=== PATIENT | male | born 1970 | race African-American/Black ===

== ENCOUNTER 2016-09-03 10:59 | Emergency (ER) | payer MEDICARE, MEDICAID ==
[~2016-09-03] VITALS: Ht 190.5 cm; Wt 191.4 kg
[~2016-09-03 10:59] MED LIST: ALLP100T PO; AML5T PO; AMLO10TA2 PO; ASP325T NG; ASP325T PO; ASP81CT PO; ASPI-808 PO; ASPI-983 PO; ASPI-999 PO; ASPI325T32 PO; ATOR20TA49 PO; ATOR20TA66 PO; ATOR80TA75 PO; BACL20TA PO; BACLOFEN; CLON0.1T PO; CLOP75TA; CLOP75TA28 PO; COLC0.6T7 PO; CYCL10TA9 PO; CYCL5TAB PO; FAMO20TA5 PO; GABA600T2 PO; GENT15DR4 RIGHT EAR; HYDR-2889 PO; HYDR-34 PO; HYDR-3816 PO; HYDROCODONE; IBP800T PO; IBUP-2055 PO; INDO25CA PO; ISOS30TA3 PO; LISI-552 PO; LISI20TA PO; METH4TAB PO; METO-333 PO; Metoprolol; NAPR-243 PO; OMG1KC PO; OXYC-12 PO; PANT40TA3 PO; PNT40TEC PO; SILD100T PO; TICA90TA PO
--- NOTE | 2016-09-03 12:05 | ED General ---
General Chief Complaint: General Problems/Pain Stated Complaint: L SIDE NECK/SHOULDER PAIN Nursing Triage Note: PT AMBULATED TO ROOM 09. PT STATES THAT SOMETIME EVER SINCE August. HE HAS HAD SEVERE "STABBING" PAIN IN HIS LEFT SHOULDER ALL THE WAY DOWN TO HIS FINGERTIPS. SOMETIMES HIS FINGERTIPS GO NUMB. PT STATES HE DIDN'T DO ANY SEVERE OR DIFFERENT ACTIVITES THAT HE IS AWARE OF TO CAUSE THIS PAIN. Nursing Sepsis Screen: No Definite Risk Source of Information: Patient, EMS Notes Reviewed Exam Limitations: No Limitations History of Present Illness Time Seen by Provider: 12:00 Initial Comments The patient is a 46-year-old male who presents with complaints of pain in the neck and numbness and tingling in the left hand. He reports this began about August 16 without injury. He reports that he has lost range of motion in the neck. There is also pain along the medial border of the scapula. He believes that he is losing strength in the left arm. He reports that he has been disabled for several years because of numbness in his legs. He states that since the onset of these symptoms noted above, his legs seem to be less numb and more functional. He has been scheduled for open MRI on 09/15. His weight is greater than 400 pounds and would not allow use of the in-house MRI Severity: Moderate Associated Systoms: Weakness (left arm) Allergies and Home Medications Allergies Coded Allergies: No Known Drug Allergies (Verified , 11/02/07) Home Medications Aspirin 325 Mg Tablet, 325 MG PO DAILY, (Reported) Baclofen 20 Mg Tablet, 20 MG PO QID, (Reported) Gabapentin 600 Mg Tablet, 1,800 MG PO DAILY, (Reported) TAKES 3 (600 MG) TABLETS WITH EVENING MEAL Hydrocodone/Acetaminophen 1 Each Tablet, 1 TAB PO TID PRN for PAIN, (Reported) Ibuprofen 200 Mg Tablet, 400 MG PO BID PRN for PAIN, (Reported) Indomethacin 25 Mg Capsule, 50 MG PO TID PRN for GOUT PAIN, (Reported) TAKES 2 (25 MG) CAPSULES Sildenafil Citrate 100 Mg Tablet, 100 MG PO DAILY PRN for INTERCOURSE, (Reported ) Constitutional: see HPI EENTM: no symptoms reported Cardiovascular: no symptoms reported, Hx of Intervention Gastrointestinal: no symptoms reported Genitourinary: no symptoms reported Musculoskeletal: see HPI, neck pain Skin: no symptoms reported Psychiatric/Neurological: Numbness, Weakness Hematologic/Lymphatic: No Symptoms Reported Past Nhtllgp-[id number]-Mpgwbq Hx Patient Social History Alcohol Use: Denies Use Recreational Drug Use: No Smoking Status: Current Everyday Smoker Type Used: Cigarettes 2nd Hand Smoke Exposure: Yes Recent Foreign Travel: No Contact w/Someone Who Travel: No Recent Infectious Disease Expo: No Recent Hopitalizations: No Immunizations Up To Date Tetanus Booster (TDap): More than 5yrs PED Vaccines UTD: No Date of Pneumonia Vaccine: Mar 07, 2015 Date of Influenza Vaccine: Mar 07, 2015 Seasonal Allergies Seasonal Allergies: Yes Surgeries HX Surgeries: Yes (CARDIAC STENTS X 3; RUPTURED APPENDIX) Surgeries: Appendectomy, Cardiac, Coronary Stent Respiratory Hx Respiratory Disorders: No Cardiovascular Hx Cardiac Disorders: Yes (STENT IN and 2 stents at [place] 03/07/15) Cardiac Disorders: Coronary Artery Disease, Heart Attack, Hypertension Neurological Hx Neurological Disorders: Yes (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/NUMBNESS IN LEGS) Reproductive System Hx Reproductive Disorders: No Sexually Transmitted Disease: No HIV/AIDS: No Genitourinary Hx Genitourinary Disorders: No Gastrointestinal Hx Gastrointestinal Disorders: Yes Gastrointestinal Disorders: Gastroesophageal Reflux, Chronic Constipation Musculoskeletal Hx Musculoskeletal Disorders: Yes (cervical spinal stenosis-CHRONIC NECK PAIN ) Musculoskeletal Disorders: Degenerate Disk Disease, Chronic Back Pain, Gout Endocrine Hx Endocrine Disorders: Yes (MORBID OBESITY) HEENT HX ENT Disorders: No Loss of Vision: Denies Hearing Impairment: Denies Cancer Hx Cancer: No Psychosocial Hx Psychiatric Problems: No Integumentary HX Skin/Integumentary Disorder: No Blood Transfusions Hx Blood Disorders: No Adverse Reaction to a Blood Tr: No Family Medical History Family Medial History: Cardiovascular disease 19 FATHER (BYPASS) Hypercholesterolemia 19 FATHER Hypertension 19 FATHER Physical Exam Vital Signs Vital Sign - Last 12Hours 09/03/16 11:09 Temp 98.5 Pulse 81 Resp 20 B/P (MAP) 196/91 Pulse Ox 98 O2 Delivery Room Air Capillary Refill : Less Than 3 Seconds General Appearance: Mild Distress Eyes: Bilateral Eye Normal Inspection HEENT: Normal ENT Inspection Neck: Limited Range of Motion Respiratory: Chest Non Tender, Lungs Clear, Normal Breath Sounds, No Accessory Muscle Use, No Respiratory Distress Cardiovascular: Regular Rate, Rhythm, No Edema, No Gallop, No JVD, No Murmur, Normal Peripheral Pulses Gastrointestinal: Normal Bowel Sounds, No Organomegaly, No Pulsatile Mass, Non Tender, Soft Back: Normal Inspection, No CVA Tenderness, No Vertebral Tenderness Extremity: Normal Capillary Refill, Normal Inspection, Normal Range of Motion, Non Tender, No Calf Tenderness, No Pedal Edema Neurologic/Psychiatric: Alert, Oriented x3, Normal Mood/Affect, Other Skin: Normal Color, Warm/Dry Lymphatic: No Adenopathy Progress/Results/Core Measures Results/Orders Vital Signs/I&O Vital Sign - Last 12Hours 09/03/16 11:09 Temp 98.5 Pulse 81 Resp 20 B/P (MAP) 196/91 Pulse Ox 98 O2 Delivery Room Air Blood Pressure Mean: 126 Departure Impression Impression: Primary Impression: motor dysfunction left arm suggestive of cervical disc Disposition: HOME, SELF-CARE Condition: Stable/Unchanged Departure-Patient Inst. Decision time for Depature: 12:07 Referrals: ROB RAMIREZ MD (PCP/Family) Primary Care Physician Add. Discharge Instructions: All discharge instructions reviewed with patient and/or family. Voiced understanding. Continue present modalities. Keep appointment for open MRI on 09/15. Consult your provider for future needs. KEYON MORIN MD Sep 03, 2016 12:05
[2016-09-03 12:35] VITALS: BP 177/118
== END 2016-09-03 12:35 | disposition home or self-care (01) ==
LOC: EDUNIT# 10:59 → ER 11:02
DX: R29.2 Abnormal reflex (principal); I25.10 Atherosclerotic heart disease of native coronary artery without angina pectoris; I25.2 Old myocardial infarction; I10 Essential (primary) hypertension; K21.9 Gastro-esophageal reflux disease without esophagitis; M48.02 Spinal stenosis, cervical region; M19.90 Unspecified osteoarthritis, unspecified site; M10.9 Gout, unspecified; E66.01 Morbid (severe) obesity due to excess calories; F17.210 Nicotine dependence, cigarettes, uncomplicated; Z79.82 Long term (current) use of aspirin; Z82.49 Family history of ischemic heart disease and other diseases of the circulatory system; Z95.5 Presence of coronary angioplasty implant and graft; Z90.49 Acquired absence of other specified parts of digestive tract
CPT/HCPCS: 99281

== ENCOUNTER 2017-08-20 23:50 | Emergency (ER) | payer MEDICARE ==
[~2017-08-20] VITALS: Ht 190.5 cm; Wt 195.0 kg
[~2017-08-20 23:50] MED LIST changes: -HYDR-3816 PO; -INDO25CA PO; +INDO25CA15 PO
[2017-08-21 00:38] LABS: BASOPHILS % (AUTO) 0 % (0-10); EOSINOPHILS # (AUTO) 0.1 10^3/uL (0.0-0.3); EOSINOPHILS % (AUTO) 1 % (0-10); HEMATOCRIT 46 % (40-54); LYMPHOCYTES # (AUTO) 2.9 X 10^3 (1.0-4.0); LYMPHOCYTES % (AUTO) 30 % (12-44); MEAN CORPUSCULAR HEMOGLOBIN 32 PG (25-34); MEAN CORPUSCULAR HGB CONC 35 G/DL (32-36); MEAN CORPUSCULAR VOLUME 92 FL (80-99); MEAN PLATELET VOLUME 10.2 FL (7.4-10.4); MONOCYTES # (AUTO) 0.8 X 10^3 (0.0-1.0); MONOCYTES % (AUTO) 8 % (0-12); NEUTROPHILS # (AUTO) 5.9 X 10^3 (1.8-7.8); NEUTROPHILS % (AUTO) 61 % (42-75); PLATELET COUNT 300 10^3/uL (130-400); RED BLOOD COUNT 5.06 10^6/uL (4.35-5.85); WHITE BLOOD COUNT 9.7 10^3/uL (4.3-11.0)
[2017-08-21 00:51] LABS: ALANINE AMINOTRANSFERASE 44 U/L (0-55); ALBUMIN 4.2 GM/DL (3.2-4.5); ALKALINE PHOSPHATASE 97 U/L (40-136); BILIRUBIN,TOTAL 0.5 MG/DL (0.1-1.0); BUN/CREATININE RATIO 8; CALCIUM 9.4 MG/DL (8.5-10.1); CARBON DIOXIDE 23 MMOL/L (21-32); CHLORIDE 110 MMOL/L (98-107); CREATININE SERUM 1.04 MG/DL (0.60-1.30); GFR ESTIMATED > 60; GLUCOSE 95 MG/DL (70-105); MAGNESIUM 2.1 MG/DL (1.8-2.4); POTASSIUM 3.6 MMOL/L (3.6-5.0); SODIUM 143 MMOL/L (135-145); TOTAL PROTEIN 7.6 GM/DL (6.4-8.2)
--- NOTE | 2017-08-21 00:56 | ED General ---
General Chief Complaint: General Problems/Pain Stated Complaint: NUMB LEGS FALL AT HOME Source of Information: Patient Exam Limitations: No Limitations History of Present Illness Date Seen by Provider: Aug 21, 2017 Time Seen by Provider: 00:25 Initial Comments Here with report of leg weakness and has had some falls related to that recently. Also noted that he had a blister on his knee that popped and now he has a wound. He has been treating that with animal spray to cover wound. He is also been using antibiotic ointment. States that he can't lift his knee but if he sticks his finger in the hole in his knee he is able to lift his leg. Has fci disability related to cervical disease and weakness to the legs from that. States he had been better but now things seemed to be worsening. Also has hypertension and heart disease. Reports that he is taking his meds as directed. Records show he has not filled prescription for his blood pressure medicines but states that he actually had quite a few left over from previous when he wasn't taking his meds as directed and that has been his med source that he's relied on recently for metoprolol and lisinopril. Does have prescriptions for [place] that he takes as directed as well as gabapentin and hydrocodone. Denies fevers. Does not know exactly when the blister started but thinks it's from rubbing on the dashboard when his car. The blister popped about a week ago and then the hole formed. Timing/Duration: 1 Week, Getting Worse Severity: Moderate Modifying Factors: worse with Movement Associated Systoms: No Chest Pain, No Cough, No Diaphoresis, No Fever/Chills, No Nausea/Vomiting; Shortness of Air, Weakness Allergies and Home Medications Allergies Coded Allergies: No Known Drug Allergies (Verified , 11/02/07) Home Medications Aspirin 325 Mg Tablet, 325 MG PO DAILY, (Reported) Baclofen 20 Mg Tablet, 20 MG PO QID, (Reported) Gabapentin 600 Mg Tablet, 1,800 MG PO DAILY, (Reported) TAKES 3 (600 MG) TABLETS WITH EVENING MEAL Hydrocodone Bit/Acetaminophen 1 Each Tablet, 1 TAB PO TID PRN for PAIN, ( Reported) Ibuprofen 200 Mg Tablet, 400 MG PO BID PRN for PAIN, (Reported) Indomethacin 25 Mg Capsule, 50 MG PO TID PRN for GOUT PAIN, (Reported) TAKES 2 (25 MG) CAPSULES Sildenafil Citrate 100 Mg Tablet, 100 MG PO DAILY PRN for INTERCOURSE, (Reported ) Patient Home Medication List Home Medication List Reviewed: Yes Review of Systems Constitutional: see HPI; No chills, No fever; weakness EENTM: nose congestion; No throat pain Respiratory: No cough; short of breath Cardiovascular: edema (bilateral legs) Gastrointestinal: No abdominal pain, No nausea, No vomiting Genitourinary: no symptoms reported Musculoskeletal: joint pain, joint swelling, muscle pain, muscle weakness Skin: change in color, lesions Psychiatric/Neurological: Numbness, Paresthesia, Pre-Existing Deficit, Weakness All Other Systems Reviewed Negative Unless Noted: Yes Past Szbmxjo-Wdosya-Vvsvkt Hx Past Med/Social Hx: Reviewed Nursing Past Med/Soc Hx Patient Social History Alcohol Use: Occasionally Uses Alcohol Beverage of Choice: Beer Recreational Drug Use: No Smoking Status: Current Everyday Smoker Type Used: Cigarettes 2nd Hand Smoke Exposure: Yes Recent Foreign Travel: No Contact w/Someone Who Travel: No Recent Hopitalizations: No Immunizations Up To Date Tetanus Booster (TDap): More than 5yrs PED Vaccines UTD: No Date of Pneumonia Vaccine: Mar 07, 2015 Date of Influenza Vaccine: Mar 07, 2015 Seasonal Allergies Seasonal Allergies: Yes Past Medical History Surgeries: Yes (CARDIAC STENTS X 3; RUPTURED APPENDIX) Appendectomy, Cardiac, Coronary Stent Respiratory: No Currently Using CPAP: No Currently Using BIPAP: No Cardiac: Yes (STENT IN and 2 stents at [place] 03/07/15) Coronary Artery Disease, Heart Attack, Hypertension Neurological: Yes (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/NUMBNESS IN LEGS) Reproductive Disorders: No Sexually Transmitted Disease: No HIV/AIDS: No Genitourinary: No Gastrointestinal: Yes Gastroesophageal Reflux, Chronic Constipation Musculoskeletal: Yes (cervical spinal stenosis-CHRONIC NECK PAIN ) Degenerate Disk Disease, Chronic Back Pain, Gout Endocrine: Yes (MORBID OBESITY) HEENT: No Loss of Vision: Denies Hearing Impairment: Denies Cancer: No Psychosocial: No Integumentary: No Blood Disorders: No Adverse Reaction/Blood Tranf: No Family Medical History Reviewed Nursing Family Hx Cardiovascular disease 19 FATHER (BYPASS) Hypercholesterolemia 19 FATHER Hypertension 19 FATHER Physical Exam Vital Signs Vital Signs - First Documented 08/21/17 01:02 Temp 97.9 Pulse 87 Resp 14 B/P (MAP) 146/105 (119) Pulse Ox 98 O2 Delivery Room Air Capillary Refill : Height, Weight, BMI Height: 6', 3.00" Weight: 422lbs 0.0oz, [id number] Method:Stated ,52.5BMI General Appearance: No Apparent Distress, WD/WN HEENT: PERRL/EOMI, Pharynx Normal Neck: Non Tender, Supple Respiratory: Lungs Clear, Normal Breath Sounds Cardiovascular: Regular Rate, Rhythm, No Murmur Gastrointestinal: Non Tender, Soft Back: Normal Inspection, No CVA Tenderness, No Vertebral Tenderness Extremity: Inflammation (around the right knee), Swelling Neurologic/Psychiatric: Alert, Oriented x3, Motor Weakness (bilateral lower extremities that is chronic) Skin: Warm/Dry, Other (wound to right knee with 2 x 2 centimeters circular hole with 6 x 6 cm area of erythema and warmth. This is over the lower kneecap area centrally.) Focused Exam Lactate Level 08/21/17 01:12: Lactic Acid Level 0.83 Lactic Acid Level Laboratory Tests Test 08/21/17 01:12 Lactic Acid Level 0.83 MMOL/L (0.50-2.00) Progress/Results/Core Measures Suspected Sepsis SIRS Temperature: Pulse: Respiratory Rate: Laboratory Tests 08/21/17 00:15: White Blood Count 9.7 Blood Pressure / Mean: 08/21/17 01:12: Lactic Acid Level 0.83 Laboratory Tests 08/21/17 00:15: Creatinine 1.04, Platelet Count 300, Total Bilirubin 0.5 Results/Orders Lab Results Laboratory Tests Test 08/21/17 00:15 08/21/17 01:12 Range/Units White Blood Count 9.7 4.3-11.0 10^3/uL Red Blood Count 5.06 4.35-5.85 10^6/uL Hemoglobin 16.0 13.3-17.7 G/DL Hematocrit 46 40-54 % Mean Corpuscular Volume 92 80-99 FL Mean Corpuscular Hemoglobin 32 25-34 PG Mean Corpuscular Hemoglobin Concent 35 32-36 G/DL Red Cell Distribution Width 13.0 10.0-14.5 % Platelet Count 300 130-400 10^3/uL Mean Platelet Volume 10.2 7.4-10.4 FL Neutrophils (%) (Auto) 61 42-75 % Lymphocytes (%) (Auto) 30 12-44 % Monocytes (%) (Auto) 8 0-12 % Eosinophils (%) (Auto) 1 0-10 % Basophils (%) (Auto) 0 0-10 % Neutrophils # (Auto) 5.9 1.8-7.8 X 10^3 Lymphocytes # (Auto) 2.9 1.0-4.0 X 10^3 Monocytes # (Auto) 0.8 0.0-1.0 X 10^3 Eosinophils # (Auto) 0.1 0.0-0.3 10^3/uL Basophils # (Auto) 0.0 0.0-0.1 10^3/uL Sodium Level 143 135-145 MMOL/L Potassium Level 3.6 3.6-5.0 MMOL/L Chloride Level 110 H 98-107 MMOL/L Carbon Dioxide Level 23 21-32 MMOL/L Anion Gap 10 5-14 MMOL/L Blood Urea Nitrogen 8 7-18 MG/DL Creatinine 1.04 0.60-1.30 MG/DL Estimat Glomerular Filtration Rate > 60 BUN/Creatinine Ratio 8 Glucose Level 95 70-105 MG/DL Calcium Level 9.4 8.5-10.1 MG/DL Magnesium Level 2.1 1.8-2.4 MG/DL Total Bilirubin 0.5 0.1-1.0 MG/DL Aspartate Amino Transf (AST/SGOT) 25 5-34 U/L Alanine Aminotransferase (ALT/SGPT) 44 0-55 U/L Alkaline Phosphatase 97 40-136 U/L C-Reactive Protein High Sensitivity 0.31 0.00-0.50 MG/DL Total Protein 7.6 6.4-8.2 GM/DL Albumin 4.2 3.2-4.5 GM/DL Lactic Acid Level 0.83 0.50-2.00 MMOL/L My Orders Orders - YASMANY CAMPBELL MD Cbc With Automated Diff (08/21/17 00:24) Comprehensive Metabolic Panel (08/21/17 00:24) Hs C Reactive Protein (08/21/17 00:24) Magnesium (08/21/17 00:24) Chest 1 View, Ap/Pa Only (08/21/17 00:24) Knee, Right, 3 Views (08/21/17 00:24) Saline Lock/Iv-Start (08/21/17 00:32) Lactic Acid Analyzer (08/21/17 00:50) Blood Culture (08/21/17 00:50) Ceftriaxone Injection (Rocephin Injectio (08/21/17 02:23) Ns (Ivpb) (Sodium Chloride 0.9% Ivpb Bag (08/21/17 02:23) Wound Culture (08/21/17 02:23) Ceftriaxone Injection (Rocephin Injectio (08/21/17 02:30) Medications Given in ED Current Medications Medications Dose Ordered Sig/Iván Route Start Time Stop Time Status Last Admin Dose Admin Ceftriaxone Sodium 1000 mg/ Sodium Chloride 50 ml @ 100 mls/hr ONCE ONCE IV 08/21/17 02:30 08/21/17 02:59 DC 08/21/17 02:34 100 MLS/HR Vital Signs/I&O 08/21/17 01:02 Temp 97.9 Pulse 87 Resp 14 B/P (MAP) 146/105 (119) Pulse Ox 98 O2 Delivery Room Air Capillary Refill : Progress Note : Progress Note Seen and evaluated. IV, labs, chest x-ray and knee x-ray ordered. We have added blood cultures and lactic acid due to the findings of the wound. Monitor patient. 0207; labs are overall normal but wound has significant abnormal appearance and ulceration. There is concerns about healing. I discussed the case with Dr. Novak. We have considered admission. After cleaning wound and wiping off the cover up spray, the surrounding tissue actually looks much better as the spray apparently was colored. Patient definitely has ulcerative wound and will need to this wound care for that. We will initiate antibiotics and then have clinic set up wound care and follow-up program. I discussed this with Dr. Novak at 0228 and she agrees. I will send a copy of the chart to the clinic as well. Discharged home with return precautions. Patient verbalize understanding instructions and agreement with plan. Diagnostic Imaging Diagonstic Imaging: Xray Plain Films/CT/US/NM/MRI: chest Comments No acute findings Reviewed: Reviewed by Me Diagonstic Imaging: Xray Plain Films/CT/US/NM/MRI: knee Comments No acute bony abnormalities Reviewed: Reviewed by Me Departure Impression Primary Impression: Open wound of right knee Qualified Codes: S81.001A - Unspecified open wound, right knee, initial encounter Disposition: HOME, SELF-CARE Condition: Stable Departure-Patient Inst. Decision time for Depature: 02:57 Referrals: ROB RAMIREZ MD (PCP/Family) Primary Care Physician Patient Instructions: Wound Care (DC) Add. Discharge Instructions: All discharge instructions reviewed with patient and/or family. Voiced understanding. Call clinic today for appointment and follow-up. Take medications as directed. Return for worse pain, fever, vomiting, weakness, breathing problems or other concerns as needed. Stop using the cover up spray. You may continue antibiotics and dressing changes to the knee. Change the dressing daily and gently rinse wound before reapplying antibiotic ointment and a dressing. Scripts Clindamycin HCl (Clindamycin HCl) 300 Mg Capsule 300 MG PO Q6H, #28 CAP Prov: YASMANY CAMPBELL MD 08/21/17 Copy Copies To 1: ROB RAMIREZ MD, TIMOTHY D MD Aug 21, 2017 00:56
[2017-08-21] MEDS ORDERED: cefTRIAXone 1 GM (ROCEPHIN) VIAL ONE (02:23)
[2017-08-21] MEDS ORDERED: NS (IVPB) 50 ML ONE (02:23)
[2017-08-21] MEDS ORDERED: cefTRIAXone INJECTION 1,000 MG in NS (IVPB) 50 ML IV ONE (02:30)
[2017-08-21] MEDS ORDERED: CLIN300C11 PO (03:16)
[2017-08-21 03:30] VITALS: BP 135/76
--- NOTE | 2017-08-21 08:16 | Diagnostic Imaging Report ---
CLINICAL INDICATION: Patient with no known injury. Patient complains of numbness and weakness in legs. Patient does have an open sore on the right patella area that has been there for at least three weeks and would not heal. EXAM: X-ray of the right knee, three views. COMPARISON: None. FINDINGS: There is curvilinear radiodense area likely representing clothing or sheets outside of the patient's knee noted on lateral view. Otherwise, right knee shows no acute fracture or dislocation. There is mildly hypertrophic spurs involving the tricompartmental regions with the medial compartment affected the most. There is chronic appearing calcification seen laterally adjacent to the lateral aspect of distal femoral epicondylar region. This may be from remote traumatic changes, possibly involving the LCL region. Correlation for prior trauma is suggested. There is no significant knee effusion. There is no radiodense foreign object noted in the soft tissue. There is a soft tissue wound seen anterior to the patellar region with no other significant abnormality noted. IMPRESSION: 1: There is soft tissue/skin wound seen anterior to the patellar region. There is no radiodense foreign objects seen in the region. 2: Degenerative disease of the right knee. 3: Suspected remote post traumatic changes laterally adjacent to the distal femoral region, as described above. Dictated by: Dictated on workstation # [id number]
--- NOTE | 2017-08-21 08:56 | Diagnostic Imaging Report ---
CLINICAL INDICATION: Patient complains of numbness and weakness in the leg. The patient has an open sore on the right patella which has been there for 3 weeks and won't heal. EXAM: Chest x-ray, PA view only. COMPARISON: Chest x-ray dated 11/17/2015. FINDINGS: The lungs are clear. There is no pleural effusion or pneumothorax. The pulmonary vasculature and mediastinal structures are unremarkable. The cardiac silhouette is within normal limits. There are hypertrophic spurs involving the thoracic spine with dextroscoliosis of the lower thoracic spine. IMPRESSION: There is no radiographic evidence of an acute cardiopulmonary process. Dictated by: Dictated on workstation # [id number]
== END 2017-08-21 03:31 | disposition home or self-care (01) ==
LOC: EDUNIT# 23:50 → ER 23:53
DX: S81.001A Unspecified open wound, right knee, initial encounter (principal); I25.10 Atherosclerotic heart disease of native coronary artery without angina pectoris; I25.2 Old myocardial infarction; I10 Essential (primary) hypertension; K21.9 Gastro-esophageal reflux disease without esophagitis; E66.01 Morbid (severe) obesity due to excess calories; F17.210 Nicotine dependence, cigarettes, uncomplicated; Z79.82 Long term (current) use of aspirin; Z90.49 Acquired absence of other specified parts of digestive tract; Z95.5 Presence of coronary angioplasty implant and graft; Z68.43 Body mass index [BMI] 50.0-59.9, adult; Z91.14 Patient's other noncompliance with medication regimen; W18.39XA Other fall on same level, initial encounter
CPT/HCPCS: 36415; 71045; 73562; 80053; 83605; 83735; 85025; 86141; 87040; 87070; 87186; 87205; 96374

== ENCOUNTER 2018-01-15 15:16 | Emergency (ER) | payer MEDICARE ==
[~2018-01-15] VITALS: Ht 190.5 cm; Wt 183.7 kg
[~2018-01-15 15:16] MED LIST changes: -AMLO10TA2 PO; +AMLO10TA6 PO; +CLIN300C11 PO
[2018-01-15 16:21] LABS: BASOPHILS % (AUTO) 0 % (0-10); EOSINOPHILS # (AUTO) 0.1 10^3/uL (0.0-0.3); EOSINOPHILS % (AUTO) 1 % (0-10); HEMATOCRIT 46 % (40-54); HEMOGLOBIN 15.4 G/DL (13.3-17.7); LYMPHOCYTES # (AUTO) 2.2 X 10^3 (1.0-4.0); LYMPHOCYTES % (AUTO) 29 % (12-44); MEAN CORPUSCULAR HEMOGLOBIN 30 PG (25-34); MEAN CORPUSCULAR HGB CONC 33 G/DL (32-36); MEAN CORPUSCULAR VOLUME 92 FL (80-99); MONOCYTES # (AUTO) 0.7 X 10^3 (0.0-1.0); MONOCYTES % (AUTO) 10 % (0-12); NEUTROPHILS # (AUTO) 4.3 X 10^3 (1.8-7.8); NEUTROPHILS % (AUTO) 59 % (42-75); PLATELET COUNT 252 10^3/uL (130-400); RED BLOOD COUNT 5.06 10^6/uL (4.35-5.85); RED CELL DISTRIBUTION WIDTH 13.3 % (10.0-14.5); WHITE BLOOD COUNT 7.3 10^3/uL (4.3-11.0)
[2018-01-15 16:35] LABS: ALANINE AMINOTRANSFERASE 14 U/L (0-55); ALBUMIN 3.9 GM/DL (3.2-4.5); ALKALINE PHOSPHATASE 82 U/L (40-136); BILIRUBIN,TOTAL 0.3 MG/DL (0.1-1.0); BUN/CREATININE RATIO 13; CALCIUM 9.2 MG/DL (8.5-10.1); CARBON DIOXIDE 26 MMOL/L (21-32); CHLORIDE 107 MMOL/L (98-107); CREATININE SERUM 0.94 MG/DL (0.60-1.30); GFR ESTIMATED > 60; GLUCOSE 95 MG/DL (70-105); POTASSIUM 4.1 MMOL/L (3.6-5.0); SODIUM 142 MMOL/L (135-145); TOTAL PROTEIN 7.1 GM/DL (6.4-8.2)
--- NOTE | 2018-01-15 16:41 | ED Neurological Problem ---
General Chief Complaint: Neurological Problems Stated Complaint: WEAKNESS/FALL Nursing Triage Note: PT STATES HE HAS HAD NUMBNESS IN HIS LOWER EXTREMITIES SINCE 2006. PT USES TWO BALANCING CANES TO WALK UP UNTIL LAST MONDAY THE PT STATES HE FELL IN THE SHOWER AND HAS SINCE THEN HAS HAD DECREASED MOBILITY. STATES HE HAS HAD TO CRAWL AROUND SINCE THE FALL TO MOVE Nursing Sepsis Screen: No Definite Risk Source: patient Exam Limitations: no limitations History of Present Illness Date Seen by Provider: Jan 15, 2018 Time Seen by Provider: 16:34 Initial Comments This 47-year-old male presents with progressive numbness of his lower extremities for the last decade. The patient now has open wounds and ulcers to his right knee and hip. Patient is unable to weight-bear. Patient relates that he can relieve the numbness temporarily with posterior pressure on the low back. Allergies and Home Medications Allergies Coded Allergies: No Known Drug Allergies (Verified , 11/02/07) Home Medications Aspirin 325 Mg Tablet, 325 MG PO DAILY, (Reported) Baclofen 20 Mg Tablet, 20 MG PO QID, (Reported) Clindamycin HCl 300 Mg Capsule, 300 MG PO Q6H Prescribed by: YASMANY CAMPBELL on 08/21/17 0316 Gabapentin 600 Mg Tablet, 1,800 MG PO DAILY, (Reported) TAKES 3 (600 MG) TABLETS WITH EVENING MEAL Hydrocodone Bit/Acetaminophen 1 Each Tablet, 1 TAB PO TID PRN for PAIN, ( Reported) Ibuprofen 200 Mg Tablet, 400 MG PO BID PRN for PAIN, (Reported) Indomethacin 25 Mg Capsule, 50 MG PO TID PRN for GOUT PAIN, (Reported) TAKES 2 (25 MG) CAPSULES Sildenafil Citrate 100 Mg Tablet, 100 MG PO DAILY PRN for INTERCOURSE, (Reported ) Patient Home Medication List Home Medication List Reviewed: Yes Review of Systems Review of Systems Constitutional: No chills, No fever Eyes: Denies Blurred Vision Ears, Nose, Mouth, Throat: denies ear pain Respiratory: No cough, No short of breath Cardiovascular: No chest pain, No palpitations Gastrointestinal: No abdominal pain, No nausea, No vomiting Genitourinary: no symptoms reported Musculoskeletal: muscle weakness Skin: other (wounds to the right hip and knee) Psychiatric/Neurological: Numbness (to both lower extremities) Endocrine: No Symptoms Reported Hematologic/Lymphatic: No Symptoms Reported Past Ojziejb-[id number]-Qtsjnr Hx Past Med/Social Hx: Reviewed Nursing Past Med/Soc Hx Patient Social History Alcohol Beverage of Choice: Beer Type Used: Cigarettes 2nd Hand Smoke Exposure: Yes Recent Foreign Travel: No Contact w/Someone Who Travel: No Recent Infectious Disease Expo: No Recent Hopitalizations: No Immunizations Up To Date Tetanus Booster (TDap): More than 5yrs PED Vaccines UTD: No Date of Pneumonia Vaccine: Mar 07, 2015 Date of Influenza Vaccine: Mar 07, 2015 Seasonal Allergies Seasonal Allergies: Yes Past Medical History Surgeries: Yes (CARDIAC STENTS X 3; RUPTURED APPENDIX) Appendectomy, Cardiac, Coronary Stent Respiratory: No Currently Using CPAP: No Currently Using BIPAP: No Cardiac: Yes (STENT IN 08 and 2 stents at [facility] 03/07/15) Coronary Artery Disease, Heart Attack, Hypertension Neurological: Yes (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/NUMBNESS IN LEGS) Reproductive Disorders: No Sexually Transmitted Disease: No HIV/AIDS: No Genitourinary: No Gastrointestinal: Yes Gastroesophageal Reflux, Chronic Constipation Musculoskeletal: Yes (cervical spinal stenosis-CHRONIC NECK PAIN ) Degenerate Disk Disease, Chronic Back Pain, Gout Endocrine: Yes (MORBID OBESITY) HEENT: No Loss of Vision: Denies Hearing Impairment: Denies Cancer: No Psychosocial: No Integumentary: No Blood Disorders: No Adverse Reaction/Blood Tranf: No Family Medical History Cardiovascular disease 19 FATHER (BYPASS) Hypercholesterolemia 19 FATHER Hypertension 19 FATHER Physical Exam Vital Signs Vital Signs - First Documented 01/15/18 15:38 Temp 98.1 Pulse 80 Resp 20 B/P (MAP) 209/118 (148) Pulse Ox 99 O2 Delivery Room Air Capillary Refill : Less Than 3 Seconds Height, Weight, BMI Height: 6'3.00" Weight: 405lbs. 0.0oz. [id number]; 52.5 BMI Method:Stated General Appearance: mild distress, obese HEENT: normal ENT inspection Neck: supple Respiratory: lungs clear Cardiovascular: regular rate, rhythm Gastrointestinal: normal bowel sounds, non tender, soft Back: normal inspection Extremities: other (there are superficial ulcers over the right hip and anterior right knee each measuring approximately 2 cm in diameter.) Neurologic/Psychiatric: other (superficial ulcers to the right anterior knee and right lateral hip.) Crainal Nerves: normal hearing, normal speech, PERRL Motor/Sensory: weak motor strength RLE, weak motor strength LLE Skin: normal color, warm/dry Progress/Results/Core Measures Results/Orders Lab Results Laboratory Tests Test 01/15/18 16:02 Range/Units White Blood Count 7.3 4.3-11.0 10^3/uL Red Blood Count 5.06 4.35-5.85 10^6/uL Hemoglobin 15.4 13.3-17.7 G/DL Hematocrit 46 40-54 % Mean Corpuscular Volume 92 80-99 FL Mean Corpuscular Hemoglobin 30 25-34 PG Mean Corpuscular Hemoglobin Concent 33 32-36 G/DL Red Cell Distribution Width 13.3 10.0-14.5 % Platelet Count 252 130-400 10^3/uL Mean Platelet Volume 10.0 7.4-10.4 FL Neutrophils (%) (Auto) 59 42-75 % Lymphocytes (%) (Auto) 29 12-44 % Monocytes (%) (Auto) 10 0-12 % Eosinophils (%) (Auto) 1 0-10 % Basophils (%) (Auto) 0 0-10 % Neutrophils # (Auto) 4.3 1.8-7.8 X 10^3 Lymphocytes # (Auto) 2.2 1.0-4.0 X 10^3 Monocytes # (Auto) 0.7 0.0-1.0 X 10^3 Eosinophils # (Auto) 0.1 0.0-0.3 10^3/uL Basophils # (Auto) 0.0 0.0-0.1 10^3/uL Sodium Level 142 135-145 MMOL/L Potassium Level 4.1 3.6-5.0 MMOL/L Chloride Level 107 98-107 MMOL/L Carbon Dioxide Level 26 21-32 MMOL/L Anion Gap 9 5-14 MMOL/L Blood Urea Nitrogen 12 7-18 MG/DL Creatinine 0.94 0.60-1.30 MG/DL Estimat Glomerular Filtration Rate > 60 BUN/Creatinine Ratio 13 Glucose Level 95 70-105 MG/DL Calcium Level 9.2 8.5-10.1 MG/DL Corrected Calcium 9.3 8.5-10.1 MG/DL Total Bilirubin 0.3 0.1-1.0 MG/DL Aspartate Amino Transf (AST/SGOT) 19 5-34 U/L Alanine Aminotransferase (ALT/SGPT) 14 0-55 U/L Alkaline Phosphatase 82 40-136 U/L Total Protein 7.1 6.4-8.2 GM/DL Albumin 3.9 3.2-4.5 GM/DL My Orders Orders - AARON GRACE MD Ct Lumbar Spine Wo (01/15/18 15:41) Ct Cervical Spine Wo (01/15/18 15:41) Hemoglobin A1c (01/15/18 15:41) Cbc With Automated Diff (01/15/18 15:41) Comprehensive Metabolic Panel (01/15/18 15:41) Ua Culture If Indicated (01/15/18 15:41) Vital Signs/I&O 01/15/18 15:38 Temp 98.1 Pulse 80 Resp 20 B/P (MAP) 209/118 (148) Pulse Ox 99 O2 Delivery Room Air Blood Pressure Mean: 148 Progress Progress Note : Time: 17:[address] of the neck and lumbar spine demonstrated multiple levels of severe degenerative changes with neural foramina narrowing. I discussed findings with patient and ask him to follow-up with his physician, , for MRI and further evaluation and care. Departure Impression Primary Impression: Degenerative disc disease, cervical Additional Impression: Degenerative disc disease, lumbar Disposition: 01 HOME, SELF-CARE Condition: Unchanged Departure-Patient Inst. Decision time for Depature: 18:01 Referrals: ROB RAMIREZ MD (PCP/Family) Primary Care Physician Patient Instructions: Degenerative Disc Disease (DC) Add. Discharge Instructions: Close follow-up with Dr. Ramirez for MRI's of neck and lumbar spine. Come back for any problems or questions. All discharge instructions reviewed with patient and/or family. Voiced understanding. AARON GRACE MD Jan 15, 2018 16:41
--- NOTE | 2018-01-15 17:46 | Diagnostic Imaging Report ---
PROCEDURE: CT cervical spine without contrast. TECHNIQUE: Multiple contiguous axial images were obtained through the cervical spine without the use of intravenous contrast. Sagittal and coronal reformations were then performed. INDICATION: Cervical neck pain. Numbness. COMPARISON: Comparison is made with a previous CT from June 12, 2014. FINDINGS: There is reversal demonstrated of the cervical lordosis. Alignment appears within normal limits. There is maintenance of normal alignment of the craniocervical junction with a normal relationship of the lateral masses of C1 and C2. The facets appear normally aligned. There is no abnormal facet joint or disc space widening. The vertebral body heights appear maintained. There are advanced multilevel degenerative endplate changes including some large bulky osteophytes anterior to C4-5, C5-6, and C6-7. These findings are not significantly changed. Fine detail limited by a significant degree of patient motion, but there are no findings suspect for an acute cervical spine fracture. C2-3 demonstrates no significant stenosis. At C3-4, there is mild uncovertebral spurring and facet hypertrophy. There is minimal narrowing of the neural foramina. At the C4-5 level, there is a right eccentric disc osteophyte complex present. There is likely moderate central canal stenosis. There appears to be [id number] bilateral foraminal stenosis. At C5-6, left eccentric disc osteophyte complex is present with at least moderate if not severe central canal stenosis. There are large uncovertebral osteophytes on the left with [id number] left foraminal stenosis. At C6-7, disc osteophyte complex results in severe central canal stenosis. There are also uncovertebral osteophytes and facet arthropathy which appear to result in [id number] bilateral foraminal stenosis. C7-T1 limited by motion. There is no high-grade central canal stenosis evident. Paraspinal soft tissues appear unremarkable. There are scattered non-pathologically enlarged cervical lymph nodes. IMPRESSION: 1. Advanced multilevel cervical degenerative disc disease and facet arthropathy without evidence of traumatic malalignment or acute cervical spine fracture. There is no suspicious marrow replacing lesion. 2. Multiple levels of apparent high-grade canal and neural foraminal stenosis. These could be further assessed with MRI if clinically indicated. Dictated by: Dictated on workstation # [id number]
--- NOTE | 2018-01-15 17:52 | Diagnostic Imaging Report ---
INDICATION: Low back pain with right leg numbness and tingling CT lumbar spine obtained without IV contrast. There is no evidence of lumbar spine fracture. There is no subluxation or malalignment. At L5-S1, there is facet degenerative change. There is no significant canal stenosis or neural foraminal stenosis. At L4-5, there is also prominent facet degenerative change. There is poor visualization of the canal due to body habitus but no definite canal stenosis or neural foraminal narrowing is seen. At L3-4, there is moderate facet degenerative change. There is no overt canal or neural foraminal narrowing. At L2-3, there is no overt canal stenosis. There is mild facet degenerative change. At L1-2, there is osteophyte formation anteriorly with mild disc space narrowing. There is no overt canal stenosis. At [id number], there are prominent anterior osteophytes with mild posterior osteophyte formation and disc bulge. These findings cause mild canal stenosis and left-sided neural frontal narrowing. IMPRESSION: No acute fracture or acute bone abnormality. Multilevel degenerative change in the lumbar spine, as described above, level by level. Recommend MRI for better evaluation of disc pathology when clinically warranted. Dictated by: Dictated on workstation # [id number]
[2018-01-15 18:50] VITALS: BP 189/113
--- OUTSIDE RECORDS SUMMARY | 2018-01-15 21:02 | XMS REPORT ---
Author Author ROB RAMIREZ Organization [facility] Address [address] [place] [address] Care Team Providers Care Automatic Lehr Operator Name Role Phone ROB RAMIREZ Unavailable PROBLEMS Type Condition ICD9-CM Code BOI02-AS Code Onset Dates Condition Status SNOMED Code Problem Erectile dysfunction due to arterial insufficiency N52.01 Active 802451282 Problem Recurrent right knee instability M23.51 Active 140736721 Problem Other chronic pain G89.29 Active 35470025 Problem Lumbar radiculopathy, chronic M54.16 Active 331954145 Problem Right leg weakness R29.898 Active [id number] Problem Mixed hyperlipidemia E78.2 Active 890954893 Problem Morbid obesity E66.01 Active 452252543 Problem Coronary artery disease involving [place] coronary artery of [place] 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 Active 9252841995085 Problem Morbid (severe) obesity due to excess calories E66.01 Active 120821335 Problem Cervical spinal stenosis M48.02 Active 73867274 Problem Foot pain, left M79.672 Active 53101494 Problem HTN (hypertension) I10 Active 70751540 Problem Cardiac disease I51.9 Active 06964038 Problem Ingrowing nail L60.0 Active 389829247 Problem 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 Active 528444592 Problem Obesity E66.9 Active 443242448 Problem Polyneuropathy associated with underlying disease G63 Active 224014458 ALLERGIES No Information ENCOUNTERS Encounter Location Date Diagnosis [facility] [address] [facility] [id number] [address] Jan, [facility] [id number] [place] [address] 75347- 6273 Dec, Lumbar radiculopathy, chronic M54.16 [facility] [address] [id number] [address] 1133 Dec, Cervical spinal stenosis M48.02 [facility] [id number] [place] [address] 10155- 8665 Dec, Cervical spinal stenosis M48.02 [facility] [id number] [place] [address] 36122 2546 14 Dec, 2017 [facility] [id number] [place] [address] 94775- 7226 Dec, Lumbar radiculopathy, chronic M54.16 [facility] [id number] [place] [address] 24113- 1666 Dec, Cervical spinal stenosis M48.02 [facility] [id number] [place] [address] 04417- 4096 Nov, Cardiac disease I51.9 and HTN (hypertension) I10 [facility] [id number] [place] [address] 87642- 9826 Nov, Lumbar radiculopathy, chronic M54.16 [facility] [id number] [place] [address] 94989- 1727 Nov, Cervical spinal stenosis M48.02 [facility] [id number] [place] [address] 85633- 1934 Nov, Lumbar radiculopathy, chronic M54.16 [facility] [id number] [place] [address] 58017- 6646 27 Oct, 2017 Lumbar radiculopathy, chronic M54.16 [facility] [id number] [place] [address] 08920- 1670 24 Oct, 2017 Cervical spinal stenosis M48.02 [facility] [id number] [place] [address] 89946- 4116 10 Oct, 2017 Lumbar radiculopathy, chronic M54.16 [facility] [id number] [place] [address] 38248- 0076 Sep, Cervical spinal stenosis M48.02 [place] [address] [address] 2596 Sep, Cervical spinal stenosis M48.02 [place] [id number] [place] [address] 36067- 5368 Sep, Lumbar radiculopathy, chronic M54.16 [place] [id number] [place] [address] 76646- 1054 Sep, Lumbar radiculopathy, chronic M54.16 and BMI 50.0-59.9, adult Z68.43 [place] [id number] [place] [address] 83241- 9994 Aug, Cervical spinal stenosis M48.02 [place] [id number] [place] [address] 80524- 9943 Aug, [place] [id number] [place] [address] 81478- 7730 Jul, Cervical spinal stenosis M48.02 [place] [id number] [place] [address] 12848- 8116 Jul, Medicare annual wellness visit, initial Z00.00 ; Morbid ( severe) obesity due to excess calories E66.01 ; Coronary artery disease involving [place] coronary artery of [place] 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 ; 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 ; Polyneuropathy associated with underlying disease G63 ; HTN (hypertension) I10 ; Mixed hyperlipidemia E78.2 ; BMI 50.0-59.9, adult Z68.43 and Encounter for immunization Z23 [place] [id number] [place] [address] 35006- 6389 Jul, Cervical spinal stenosis M48.02 ; HTN (hypertension) I10 ; Coronary artery disease involving [place] coronary artery of [place] 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 and Right leg weakness R29.898 [place] [address] [address]- 3236 June, Cervical spinal stenosis M48.02 [place] [id number] [place] [address] 58158- 7293 June, Cervical spinal stenosis M48.02 [facility] [address] 18046- 1864 May, Cervical spinal stenosis M48.02 [facility] [address] 53716- 8775 Apr, Cervical spinal stenosis M48.02 [facility] [address] 68162 -1793 14 Mar, 2017 Neck pain on right side M54.2 and BMI 50.0-59.9, adult Z68.43 [place] [address] 37060- 0054 06 Mar, 2017 Cervical spinal stenosis M48.02 [place] [address] 96540- 2897 Feb, Cervical spinal stenosis M48.02 [facility] [id number] [place] [address] 09964- 7261 Feb, [facility] [address] 89470- 4452 Feb, Morbid (severe) obesity due to excess calories E66.01 and Coronary artery disease involving [place] coronary artery of [place] 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 [place] [id number] [place] [address] 17656- 0246 Feb, Mixed hyperlipidemia E78.2 and HTN (hypertension) I10 [place] [address] 88186- 4129 Feb, Cervical spinal stenosis M48.02 ; HTN (hypertension) I10 ; Mixed hyperlipidemia E78.2 ; Recurrent right knee instability M23.51 and Morbid obesity E66.01 [facility] [id number] [place] [address] 55469- 5024 Jan, Other chronic pain G89.29 [place] [address] [address] 1934 Dec, Other chronic pain G89.29 [facility] [id number] [place] [address] 12659- 8266 Nov, Other chronic pain G89.29 [facility] [address] [place] [address] 82342- 8139 Oct, Other chronic pain G89.29 [facility] [id number] [place] [address] 91274- 6426 Sep, Other chronic pain G89.29 [facility] [id number] [place] [address] 41892- 1304 Sep, Other chronic pain G89.29 [facility] [id number] [place] [address] 08717- 9565 Sep, Tenderness of left calf M79.662 and Cervical spinal stenosis M48.02 [facility] [id number] [place] [address] 94728- 0077 Aug, Other chronic pain G89.29 [facility] [id number] [place] [address] 68651- 6728 Aug, Cervical radiculopathy M54.12 [facility] [address] [address]7145 Aug, Cervical neuritis M54.12 [facility] [id number] [place] [address] 92108- 3200 Jul, Other chronic pain G89.29 [facility] [id number] [place] [address] [id number] 13 Jul, 2016 Dental caries K02.9 [facility] [address] [place] [address] 75078- 8608 Jul, Other chronic pain G89.29 [facility] [id number] [place] [address] 37619- 9581 June, Other chronic pain G89.29 [facility] [id number] [address] 14 May, 2016 Dental examination Z01.20 [facility] [address] [address]- 2569 07 May, 2016 Other chronic pain G89.29 [facility] [id number] [place] [address] 17181- 8657 Apr, Cervical spinal stenosis M48.02 and Drug-induced constipation K59.03 [facility] [address] [address]- 0666 Apr, [facility] [id number] [place] [address] 92335- 0621 Apr, Other chronic pain G89.29 [facility] [id number] [place] [address] 58777- 1268 Apr, [facility] [id number] [place] [address] 21574- 8689 Mar, [facility] [id number] [place] [address] 72272- 4122 Mar, Other chronic pain G89.29 [facility] [address] [address]- 7377 Feb, Other chronic pain G89.29 [facility] [id number] [place] [address] 94045- 1749 Jan, Other chronic pain G89.29 [facility] [address] [address]- 8512 30 Dec, 2015 [facility] [id number] [place] [address] 41150- 8809 16 Dec, 2015 Other chronic pain G89.29 [facility] [address] [place] [address] 20711- 4185 11 Dec, 2015 Cervical spinal stenosis M48.02 ; Encounter for immunization Z23 ; Polyneuropathy associated with underlying disease G63 and Erectile dysfunction due to arterial insufficiency N52.01 [facility] [address] 69437- 1087 Nov, [facility] [address] 40523- 2779 Nov, [facility] [address] 46388- 9290 Oct, [facility] [address] 82448- 6921 Sep, [place] [address] 67627- 4569 Aug, [place] [address] 83373- 8330 Jul, Other chronic pain G89.29 [facility] [address] 41003 -9899 Jul, Angioedema, initial encounter T78.3XXA and Dental abscess K04.7 [place] [address] 77927- 3840 Jul, Leg pain M79.606 [place] [address] 82457- 3920 June, Other chronic pain G89.29 and Encounter for immunization Z23 [facility] [address] 20868- 1093 June, [facility] [address] 65685- 6595 May, Leg pain M79.606 [facility] [address] 57894- 3527 Apr, Leg pain M79.606 and Cervical spinal stenosis M48.02 [place] [address] 52525- 8356 Apr, [facility] [address] [address]- 5040 Mar, High ankle sprain of left lower extremity S93.432A [facility] [address] [address]- 9476 Mar, [facility] [id number] [place] [address] 37651- 5404 Mar, Left ankle pain M25.572 [facility] [id number] [place] [address] 22806- 2080 Mar, [facility] [id number] [place] [address] 31468- 7275 Mar, [facility] [id number] [place] [address] 10575- 4815 Mar, Leg pain M79.606 [facility] [id number] [place] [address] 96811- 9750 Mar, [facility] [id number] [place] [address] 34224- 2632 Mar, Ankle pain M25.579 ; Cardiac disease I51.9 ; Obesity E66.9 ; Leg pain M79.606 ; HTN (hypertension) I10 ; Ingrowing nail L60.0 ; 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 and Foot pain, left M79.672 [facility] [address] [address]- 2522 Feb, [facility] [id number] [place] [address] 53407- 5507 Jan, [facility] [id number] [place] [address] 42230- 6463 Dec, Cervical spinal stenosis M48.02 and Hypertension I10 [facility] [id number] [place] [address] 30150- 7244 Dec, [facility] [address] 7155 Dec, [facility] [id number] [place] [address] 981128- 4995 Dec, [facility] [id number] 3173 Nov, [facility] [id number] [place] [address] 96652- 7860 Nov, [facility] [id number] [place] [address] 23338- 5575 Oct, [facility] [id number] [place] [address] 50761- 3118 Oct, [facility] [id number] [place] [address] 66037- 3768 Oct, [facility] [id number] [place] [address] 16433- 0300 Oct, [facility] [address] [address]- 2002 Sep, [facility] [id number] [address]- 7226 Sep, [facility] [address] [address]- 3627 Sep, Spinal stenosis in cervical region 723.0 ; Essential hypertension, benign 401.1 and Erectile dysfunction 607.84 [facility] [place] [facility] [address]- 6168 Sep, [facility] [place] [facility] [id number] [place] [address] 90756- 7394 Aug, [facility] [address] [address]- 6765 Aug, [facility] [id number] [place] [address] 82548- 7667 Jul, [facility] [address] [facility] [id number] [address]- 2754 June, [facility] [address] [address]- 2366 June, [facility] [id number] [address]- 9708 June, [facility] [address] [facility] [id number] [address]- 1542 June, [facility] [id number] [place] [address] 60180- 8300 June, Spinal stenosis in cervical region 723.0 and Essential hypertension, benign 401.1 [facility] [address] [address]- 4185 May, [facility] [id number] [address]- 4492 May, [facility] [address] [address]- 4130 Apr, [facility] [address] [address]- 8955 Apr, [facility] [address] [address]- 1792 Apr, [facility] [address] [facility] [id number] [place] [address]- 6173 Apr, [facility] [address] [facility] [id number] [address]- 9642 Mar, [facility] [address] [facility] [id number] [place] [address]- 0789 Mar, [facility] [id number] [address]- 9890 Feb, [facility] [address] [address]- 3156 Feb, [facility] [place] [facility] [address] [id number] [place] [address]- 3047 Feb, [facility] [place] [facility] [address] [id number] [place] 5419 Feb, [facility] [place] [facility] [address] [id number] [place] [address]- 2536 Feb, [facility] [place] [facility] [address] [id number] [place] [address]- 9867 Jan, [facility] [place] [facility] [address] [id number] [place] [address]- 5697 Jan, [facility] [place] [facility] [address] [id number] [place] [address]- 2526 Jan, [facility] [place] [facility] [address] [id number] [place] [address]- 3377 Jan, [facility] [place] [facility] [address] [id number] [place] [address]- 4070 Dec, [facility] [place] [facility] [address] [id number] [place] [address]- 7585 Dec, [facility] [place] [facility] [address] [id number] [place] [address]- 0798 Nov, [facility] [place] [facility] [address] [id number] [place] [address]- 5844 Nov, [facility] [place] [facility] [address] [id number] [place] [address]- 5727 Oct, [facility] [place] [facility] [address] [id number] [place] [address]- 8007 Oct, [facility] [place] [facility] [address] [id number] [place] [address]- 8730 Oct, [facility] [place] [facility] [address] [id number] [place] [address]- 6957 Oct, [facility] [place] [facility] [address] [id number] [place] [address]- 6079 Sep, [facility] [place] [facility] [address] [id number] [place] [address]- 0909 Sep, [facility] [place] [facility] [address] [id number] [place] [address]- 3840 Jul, [facility] [place] [facility] [address] [id number] [place] [address]- 5524 Jul, [facility] [place] [facility] [address] [id number] [place] [address]- 9092 Jul, [facility] [place] [facility] [address] [id number] [place] [address]- 4091 Jul, [facility] [place] [facility] [address] [id number] [place] [address]- 7867 June, [facility] [place] [facility] [address] [id number] [place] [address]- 9160 June, [facility] [place] [facility] [address] [id number] [place] [address]- 9734 June, [facility] [place] [facility] [address] [id number] [place] [address]- 8310 June, [facility] [place] [facility] [address] [id number] [place] [address]- 9101 Mar, [facility] [place] [facility] [address] [id number] [place] [address]- 9757 Mar, [facility] [place] [facility] [address] [id number] [place] [address]- 4392 Mar, [facility] [place] [facility] [address] [id number] [place] [address]- 1104 Mar, [facility] [place] [facility] [address] [id number] [place] [address]- 4949 Mar, [facility] [place] [facility] [address] [id number] [place] [address]- 7825 Feb, [facility] [place] [facility] [address] [id number] [place] [address]- 2251 Feb, [facility] [place] [facility] [address] [id number] [place] [address]- 1353 Feb, [facility] [place] [facility] [address] [id number] [place] [address]- 7226 Feb, [facility] [place] [facility] [address] [id number] [place] [address]- 1238 Feb, [facility] [place] [facility] [address] [id number] [place] [address]- 7484 Feb, [facility] [place] [facility] [address] [id number] [place] [address]- 4585 Feb, [facility] [place] [facility] [address] [id number] [place] [address]- 7926 Feb, [facility] [place] [facility] [address] [id number] [place] [address]- 3906 Feb, [facility] [place] [facility] [address] [id number] [place] [address]- 5289 Feb, [facility] [place] [facility] [address] [id number] [place] [address]- 8002 Nov, [facility] [place] [facility] [address] [id number] [place] [address]- 4361 Nov, [facility] [place] [facility] [address] [id number] [place] [address]- 7529 Nov, [facility] [place] [facility] [address] [id number] [place] [address]- 5563 Nov, [facility] [place] [facility] [address] [id number] [place] [address] Nov, [facility] [place] [facility] [address] [id number] [place] [address] Nov, [facility] [place] [facility] [address] [id number] [place] [address] Aug, 2012 [facility] [address] [id number] [place] [address] Aug, 2012 [facility] [place] [facility] [address] [id number] [place] [address] Aug, 2012 [facility] [address] [id number] [place] [address] Aug, 2012 [facility] [address] [id number] [place] [address] May, [facility] [address] [id number] [place] [address] Apr, [facility] [address] [id number] [place] [address] Apr, [facility] [address] [id number] [place] [address] Jan, [facility] [address] [id number] [place] [address] Jan, [facility] [address] [id number] [place] [address] Jan, [facility] [address] [id number] [place] [address] Jan, [facility] [address] [id number] [place] [address] Jan, [facility] [address] [id number] [place] [address] Jan, [facility] [place] [facility] [address] [id number] [place] [address] Jan, [facility] [place] [facility] [address] [id number] [place] [address] 17 Jan, 2012 [facility] [place] [facility] [address] [id number] [place] [address] Jan, [facility] [place] [facility] [address] [id number] [place] [address] Jan, [facility] [place] [facility] [address] [id number] [place] [address] Jan, [facility] [place] [facility] [address] [id number] [place] [address] Jan, [facility] [place] [facility] [address] [id number] [place] [address] Jan, [facility] [place] [facility] [address] [id number] [place] [address] Dec, [facility] [place] [facility] [address] [id number] [place] [address] Dec, [facility] [place] [facility] [address] [id number] [place] [address] Dec, [facility] [address] [id number] [place] [address] Sep, [facility] [place] [facility] [address] [id number] [place] [address] Sep, [facility] [place] [facility] [address] [id number] [place] [address] Sep, [facility] [place] [facility] [address] [id number] [place] [address] Aug, [facility] [place] [facility] [address] [id number] [place] [address] Aug, [facility] [place] [facility] [address] [id number] [place] [address] Aug, [facility] [place] [facility] [address] [id number] [place] [address] June, [facility] [place] [facility] [address] [id number] [place] [address] Apr, [facility] [place] [facility] [address] [id number] [place] [address] Apr, [facility] [address] [id number] [place] [address] Mar, [facility] [place] [facility] [address] [id number] [place] Feb, [facility] [place] [facility] [address] [id number] [place] [address] Feb, [facility] [place] [facility] [address] [id number] [place] [address] Jan, [facility] [place] [facility] [address] [id number] [place] [address] Jan, [facility] [place] [facility] [address] [id number] [place] [address] Dec, [facility] [place] [facility] [address] [facility] [id number] [place] [address] Dec, [facility] [place] [facility] [address] [id number] [place] [address] Dec, [facility] [place] [facility] [address] [facility] [id number] [place] [address] Nov, [facility] [place] [facility] [address] [facility] [id number] [place] [address] Sep, [facility] [place] [facility] [address] [id number] [address] Apr, [facility] [place] [facility] [address] [id number] [address] 16 Mar, 2010 [facility] [place] [facility] [address] [id number] [place] [address] Jan, [facility] [place] [facility] [address] [id number] [place] [address] 17 Dec, 2009 [facility] [place] [facility] [address] [facility] [id number] [place] [address] Nov, [facility] [place] [facility] [address] [facility] [id number] [place] [address] Sep, [facility] [address] [facility] [id number] [place] [address] Jul, [facility] [address] [facility] [id number] [address] Feb, [facility] [address] [facility] [id number] [place] [address] Jan, IMMUNIZATIONS No Known Immunizations SOCIAL HISTORY Never Assessed REASON FOR VISIT Controlled Med Refill PLAN OF CARE VITAL SIGNS MEDICATIONS Medication Instructions Dosage Frequency Start Date End Date Duration Status Morphine Sulfate ER 15 mg Orally every 12 hrs 1 tablet 12h Dec, 14 days Active RESULTS No Results PROCEDURES No Known procedures INSTRUCTIONS MEDICATIONS ADMINISTERED No Known Medications MEDICAL (GENERAL) HISTORY Type Description Date Medical History spinal compression fracture Medical History cardiovascular disease Medical History stent placed 03-07-15 Surgical History cardiac stent 03-07-15 Surgical History Cardiac stent 11/2015 Hospitalization History [place] with stent placement 03-06-15 Hospitalization History Cardiac Stent Collapsed/Heart attack 11/2015
--- OUTSIDE RECORDS SUMMARY | 2018-01-15 21:03 | XMS REPORT ---
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 Role Phone NATE KNIGHT Unavailable PROBLEMS Type Condition ICD9-CM Code SZN53-VB Code Onset Dates Condition Status SNOMED Code Problem Erectile dysfunction due to arterial insufficiency N52.01 Active 201923726 Problem Recurrent right knee instability M23.51 Active 559131998 Problem Other chronic pain G89.29 Active 59403800 Problem Lumbar radiculopathy, chronic M54.16 Active 844290340 Problem Right leg weakness R29.898 Active [id number] Problem Mixed hyperlipidemia E78.2 Active 141941193 Problem Morbid obesity E66.01 Active 769861996 Problem Coronary artery disease involving [place] coronary artery of [place] 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 Active 8481062370011 Problem Morbid (severe) obesity due to excess calories E66.01 Active 888245269 Problem Cervical spinal stenosis M48.02 Active 28866825 Problem Foot pain, left M79.672 Active 20008861 Problem HTN (hypertension) I10 Active 20117269 Problem Cardiac disease I51.9 Active 30319151 Problem Ingrowing nail L60.0 Active 500198848 Problem 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 Active 819399484 Problem Obesity E66.9 Active 435443630 Problem Polyneuropathy associated with underlying disease G63 Active 540302349 ALLERGIES No Information ENCOUNTERS Encounter Location Date Diagnosis [facility] [address] [facility] [id number] [address] Jan, [facility] [id number] [place] [address] 74257- 3990 Dec, Cervical spinal stenosis M48.02 [facility] [address] [id number] [address] Dec, [facility] [id number] [place] [address] 71595- 2041 13 Dec, 2017 Lumbar radiculopathy, chronic M54.16 [facility] [id number] [place] [address] 71937- 4016 07 Dec, 2017 Cervical spinal stenosis M48.02 [facility] [id number] [place] [address] 79642 2546 Nov, Cardiac disease I51.9 and HTN (hypertension) I10 [facility] [id number] [place] [address] 13396- 0491 Nov, Lumbar radiculopathy, chronic M54.16 [facility] [id number] [place] [address] 42613- 2356 Nov, Cervical spinal stenosis M48.02 [facility] [id number] [place] [address] 23757- 4136 Nov, Lumbar radiculopathy, chronic M54.16 [facility] [id number] [place] [address] 63508- 9875 27 Sep2017 Lumbar radiculopathy, chronic M54.16 [facility] [id number] [place] [address] 61753- 5346 24 Oct, 2017 Cervical spinal stenosis M48.02 [facility] [id number] [place] [address] 74825- 5895 10 Oct, 2017 Lumbar radiculopathy, chronic M54.16 [facility] [id number] [place] [address] 83054- 7113 Sep, Cervical spinal stenosis M48.02 [facility] [id number] [place] [address] 39408- 2246 27 Sep, 2017 Cervical spinal stenosis M48.02 [facility] [id number] [place] [address] 39609- 5359 16 Sep, 2017 Lumbar radiculopathy, chronic M54.16 [place] [address] [address]40 Sep, Lumbar radiculopathy, chronic M54.16 and BMI 50.0-59.9, adult Z68.43 [facility] [id number] [place] [address] 73192- 9356 Aug, Cervical spinal stenosis M48.02 [facility] [id number] [place] [address] 63742- 4553 Aug, [facility] [id number] [place] [address] 19920- 8140 Jul, Cervical spinal stenosis M48.02 [facility] [id number] [place] [address] 17327- 6714 Jul, Medicare annual wellness visit, initial Z00.00 ; Morbid ( severe) obesity due to excess calories E66.01 ; Coronary artery disease involving [place] coronary artery of [place] 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 ; 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 ; Polyneuropathy associated with underlying disease G63 ; HTN (hypertension) I10 ; Mixed hyperlipidemia E78.2 ; BMI 50.0-59.9, adult Z68.43 and Encounter for immunization Z23 [facility] [id number] [place] [address] 40826- 9474 Jul, Cervical spinal stenosis M48.02 ; HTN (hypertension) I10 ; Coronary artery disease involving [place] coronary artery of [place] 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 and Right leg weakness R29.898 [facility] [id number] [place] [address] 41589- 9482 June, Cervical spinal stenosis M48.02 [facility] [id number] [place] [address] 25211- 6306 June, Cervical spinal stenosis M48.02 [facility] [id number] [place] [address] 29893- 3771 May, Cervical spinal stenosis M48.02 [facility] [facility] [id number] [address]- 2052 07 Apr, 2017 Cervical spinal stenosis M48.02 [facility] [id number] [place] [address] 22521 -4504 14 Mar, 2017 Neck pain on right side M54.2 and BMI 50.0-59.9, adult Z68.43 [place] [address] 89602- 4541 06 Mar, 2017 Cervical spinal stenosis M48.02 [facility] [address] 74871- 3995 Feb, Cervical spinal stenosis M48.02 [place] [address] 67282- 5215 Feb, [facility] [address] 88002- 3869 Feb, Morbid (severe) obesity due to excess calories E66.01 and Coronary artery disease involving [place] coronary artery of [place] 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 [facility] [id number] [place] [address] 20456- 4683 05 Feb, 2017 Mixed hyperlipidemia E78.2 and HTN (hypertension) I10 [facility] [id number] [place] [address] 14360- 0523 Feb, Cervical spinal stenosis M48.02 ; HTN (hypertension) I10 ; Mixed hyperlipidemia E78.2 ; Recurrent right knee instability M23.51 and Morbid obesity E66.01 [facility] [id number] [place] [address] 96022- 3884 13 Jan, 2017 Other chronic pain G89.29 [place] [address] 99491- 5484 16 Dec, 2016 Other chronic pain G89.29 [facility] [id number] [place] [address] 32337- 9961 Nov, Other chronic pain G89.29 [facility] [id number] [place] [address] 60825- 4069 Oct, Other chronic pain G89.29 [facility] [id number] [place] [address] 27140- 0429 Sep, Other chronic pain G89.29 [facility] [address] [place] [address] 21007- 3385 Sep, Other chronic pain G89.29 [facility] [id number] [place] [address] 12695- 7392 Sep, Tenderness of left calf M79.662 and Cervical spinal stenosis M48.02 [facility] [id number] [place] [address] 89414- 6669 Aug, Other chronic pain G89.29 [facility] [id number] [place] [address] 72075- 1759 Aug, Cervical radiculopathy M54.12 [facility] [id number] [place] [address] 52366 -0754 Aug, Cervical neuritis M54.12 [facility] [id number] [place] [address] 18025- 1025 Jul, Other chronic pain G89.29 [facility] [address] [place] [address] [id number] Jul, Dental caries K02.9 [facility] [id number] [place] [address] 39770- 4801 Jul, Other chronic pain G89.29 [facility] [address] [place] [address] 43698- 6968 June, Other chronic pain G89.29 [facility] [id number] [place] [address] [id number] May, Dental examination Z01.20 [facility] [id number] [place] [address] 29150- 5605 May, Other chronic pain G89.29 [facility] [id number] [place] [address] 11764- 7621 Apr, Cervical spinal stenosis M48.02 and Drug-induced constipation K59.03 [facility] [id number] [place] [address] 60239 2546 13 Apr, 2016 [facility] [address] 46073 2546 Apr, Other chronic pain G89.29 [facility] [id number] [place] [address] 38128 254 Apr, [facility] [address] 33486- 7896 Mar, [facility] [id number] [place] [address] 10836- 0862 Mar, Other chronic pain G89.29 [facility] [id number] [place] [address] 79207- 6050 Feb, Other chronic pain G89.29 [facility] [id number] [place] [address] 40800- 3204 Jan, Other chronic pain G89.29 [facility] [id number] [place] [address] 07272- 0015 30 Dec, 2015 [facility] [id number] [place] [address] 15242- 2547 16 Dec, 2015 Other chronic pain G89.29 [facility] [id number] [place] [address] 68867- 3792 11 Dec, 2015 Cervical spinal stenosis M48.02 ; Encounter for immunization Z23 ; Polyneuropathy associated with underlying disease G63 and Erectile dysfunction due to arterial insufficiency N52.01 [facility] [id number] [place] [address] 40850- 7215 24 Nov, 2015 [facility] [address] 01122- 4603 Nov, [facility] [id number] [place] [address] 30792- 2615 Oct, [facility] [address] 96123- 7513 Sep, [facility] [address] 72806- 3021 Aug, [facility] [address] 83822- 5699 Jul, Other chronic pain G89.29 [facility] [address] 21980 -3413 Jul, Angioedema, initial encounter T78.3XXA and Dental abscess K04.7 [place] [address] 30115- 4858 Jul, Leg pain M79.606 [place] [address] 01968- 6034 June, Other chronic pain G89.29 and Encounter for immunization Z23 [place] [address] 91075- 8638 June, [facility] [address] 46848- 0067 May, Leg pain M79.606 [place] [address] 31067- 0235 Apr, Leg pain M79.606 and Cervical spinal stenosis M48.02 [place] [address] 98764- 3574 Apr, [place] [address] 23515- 6050 18 Mar, 2015 High ankle sprain of left lower extremity S93.432A [place] [address] 02237- 2729 Mar, [facility] [address] [place] [address] 49740- 6153 Mar, Left ankle pain M25.572 [facility] [id number] [place] [address] 25665- 1855 Mar, [facility] [id number] [place] [address] 70727- 2570 Mar, [facility] [id number] [place] [address] 86893- 0348 Mar, Leg pain M79.606 [facility] [id number] [place] [address] 90098- 9821 Mar, [facility] [id number] [place] [address] 38496- 3492 Mar, Ankle pain M25.579 ; Cardiac disease I51.9 ; Obesity E66.9 ; Leg pain M79.606 ; HTN (hypertension) I10 ; Ingrowing nail L60.0 ; 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 and Foot pain, left M79.672 [facility] [id number] [place] [address] 43783- 0613 Feb, [facility] [id number] [place] [address] 54169- 4394 Jan, [facility] [id number] [place] [address] 49327- 5830 Dec, Cervical spinal stenosis M48.02 and Hypertension I10 [facility] [id number] [place] [address] 96855- 2471 Dec, [facility] [id number] [place] [address] 07329- 7920 Dec, [facility] [id number] [place] [address] 35544- 0420 Dec, [facility] [address] [place] [address]- 3565 Nov, [facility] [address]- 1136 Nov, [facility] [address] [place] [address]- 1393 Oct, [facility] [address] [place] [address]- 0030 Oct, [facility] [id number] [place] [address]- 2968 Oct, [facility] [address] [place] [address], [place] 6886 Oct, [facility] [address] [place] [address]- 2328 Sep, [facility] [id number] [place] [address]- 5209 Sep, [facility] [address], [place] [address]- 9247 Sep, Spinal stenosis in cervical region 723.0 ; Essential hypertension, benign 401.1 and Erectile dysfunction 607.84 [facility] [address], [place] [address]- 0823 Sep, [facility] [address], [place] [address]- 9490 Aug, [facility] [address], [place] [address]- 9006 Aug, [facility] [address] 3219 Jul, [facility] [address] 8007 June, [facility] [address] [place] [address]- 1289 June, [facility] [id number] [place] [address]- 8563 June, [facility] [address] [id number] [place] [address]- 6658 June, [facility] [address] [place] [address]- 4938 June, Spinal stenosis in cervical region 723.0 and Essential hypertension, benign 401.1 [facility] [address] [id number] [place] [address]- 1601 May, [facility] [address] [id number] [place] [address]- 3665 May, [facility] [address] [facility] [id number] [place] [address]- 2230 Apr, [facility] [address] [id number] [place] [address]- 3933 Apr, [facility] [address] [id number] [place] [address]- 1610 Apr, [facility] [address] [id number] [place] [address]- 5582 Apr, [facility] [address] [facility] [id number] [place] [address]- 3039 Mar, [facility] [address] [id number], [place] [address]- 5804 Mar, [facility] [address] [id number], [place] [address]- 7448 Feb, [facility] [place] [facility] [address] [id number] [place] [address]- 6947 Feb, [facility] [place] [facility] [address] [facility] [id number], [place] [address]- 1586 Feb, [facility] [place] [facility] [address] [facility] [id number] [place] 6158 Feb, [facility] [address] [id number] [place] [address]- 9664 Feb, [facility] [place] [facility] [address] [id number] [place] [address]- 7127 Jan, [facility] [place] [facility] [address] [id number] [place] 7854 Jan, [facility] [place] [facility] [address] [id number] [place] [address]- 1242 Jan, [facility] [place] [facility] [address] [id number] [place] [address]- 0216 Jan, [facility] [place] [facility] [address] [id number] [place] 3553 Dec, [facility] [place] [facility] [address] [id number] [place] [address]- 7067 Dec, [facility] [place] [facility] [address] [id number] [place] [address]- 4094 Nov, [facility] [place] [facility] [address] [id number] [place] [address]- 6557 Nov, [facility] [place] [facility] [address] [id number] [place] [address]- 3930 Oct, [facility] [place] [facility] [address] [id number] [place] [address]- 6306 Oct, [facility] [place] [facility] [address] [id number] [place] [address]- 6691 Oct, [facility] [place] [facility] [address] [id number] [place] [address]- 1137 Oct, [facility] [place] [facility] [address] [id number] [place] [address]- 1702 Sep, [facility] [place] [facility] [address] [id number] [place] [address]- 7569 Sep, [facility] [place] [facility] [address] [id number] [place] 3325 Jul, [facility] [place] [facility] [address] [id number] [place] [address]- 5501 Jul, [facility] [place] [facility] [address] [id number] [place] [address]- 3173 Jul, [facility] [place] [facility] [address] [id number] [place] [address]- 4898 Jul, [facility] [place] [facility] [address] [id number] [place] [address]- 9202 June, [facility] [place] [facility] [address] [id number] [place] [address]- 9310 June, [facility] [place] [facility] [address] [id number] [place] [address]- 8406 June, [facility] [place] [facility] [address] [id number] [place] [address]- 8676 June, [facility] [place] [facility] [address] [id number] [place] [address]- 0640 Mar, [facility] [place] [facility] [address] [id number] [place] [address]- 8843 Mar, [facility] [place] [facility] [address] [id number] [place] [address]- 2080 Mar, [facility] [place] [facility] [address] [id number] [place] [address]- 8060 Mar, [facility] [place] [facility] [address] [id number] [place] [address]- 3729 Mar, [facility] [place] [facility] [address] [id number] [place] [address]- 3729 Feb, [facility] [place] [facility] [address] [id number] [place] [address]- 1795 Feb, [facility] [place] [facility] [address] [id number] [place] [address]- 9559 Feb, [facility] [place] [facility] [address] [id number] [place] [address]- 0049 Feb, [facility] [place] [facility] [address] [id number] [place] [address]- 0045 Feb, [facility] [place] [facility] [address] [id number] [place] [address]- 4188 Feb, [facility] [place] [facility] [address] [id number] [place] [address]- 1400 Feb, [facility] [place] [facility] [address] [id number] [place] [address]- 1064 Feb, [facility] [place] [facility] [address] [id number] [place] [address]- 0680 Feb, [facility] [place] [facility] [address] [id number] [place] [address]- 5955 Feb, [facility] [place] [facility] [address] [id number] [place] [address]- 7070 Nov, [facility] [place] [facility] [address] [id number] [place] [address]- 6722 Nov, [facility] [place] [facility] [address] [id number] [place] [address]- 1297 Nov, [facility] [place] [facility] [address] [id number] [place] [address]- 6988 Nov, [facility] [place] [facility] [address] [id number] [place] [address] Nov, [facility] [place] [facility] [address] [id number] [place] [address] Nov, [facility] [place] [facility] [address] [id number] [place] [address] Aug, [facility] [place] [facility] [address] [id number] [place] [address] Aug, [facility] [place] [facility] [address] [id number] [place] [address] Aug, [facility] [place] [facility] [address] [id number] [place] [address] Aug, 2012 [facility] [address] [id number] [place] [address] 08 May, 2012 [facility] [address] [id number] [place] [address] 18 Apr, 2012 [facility] [address] [id number] [place] [address] Apr, [facility] [address] [id number] [place] [address] 17 Jan, 2012 [facility] [address] [id number] [place] [address] Jan, [facility] [address] [id number] [place] [address] Jan, [facility] [address] [id number] [place] [address] Jan, [facility] [address] [id number] [place] [address] Jan, [facility] [address] [id number] [place] [address] Jan, [facility] [address] [id number] [place] [address] Jan, [facility] [address] [id number] [place] [address] 17 Jan, 2012 [facility] [place] [facility] [address] [id number] [place] [address] 12 Jan, 2012 [facility] [place] [facility] [address] [id number] [place] [address] Jan, [facility] [address] [id number] [place] [address] Jan, [facility] [place] [facility] [address] [id number] [place] [address] Jan, [facility] [place] [facility] [address] [id number] [place] [address] Jan, [facility] [place] [facility] [address] [id number] [place] [address] Dec, [facility] [place] [facility] [address] [id number] [place] [address] Dec, [facility] [place] [facility] [address] [id number] [place] [address] Dec, [facility] [place] [facility] [address] [id number] [place] [address] Sep, [facility] [place] [facility] [address] [id number] [place] [address] Sep, [facility] [place] [facility] [address] [id number] [place] [address] Sep, [facility] [place] [facility] [address] [id number] [place] [address] Aug, [facility] [place] [facility] [address] [id number] [place] [address] Aug, [facility] [place] [facility] [address] [id number] [place] [address] Aug, [facility] [place] [facility] [address] [id number] [place] [address] June, [facility] [place] [facility] [address] [id number] [place] [address] Apr, [facility] [place] [facility] [address] [id number] [place] [address] Apr, [facility] [place] [facility] [address] [id number] [place] [address] Mar, [facility] [place] [facility] [address] [id number] [place] [address] Feb, [facility] [place] [facility] [address] [id number] [place] [address] 21 Feb, 2011 [facility] [address] [id number] [place] [address] 22 Jan, 2011 [facility] [place] [facility] [address] [id number] [place] [address] Jan, [facility] [place] [facility] [address] [id number] [place] [address] Dec, [facility] [place] [facility] [address] [id number] [place] [address] Dec, [facility] [place] [facility] [address] [id number] [place] [address] Dec, [facility] [place] [facility] [address] [id number] [place] [address] Nov, [facility] [place] [facility] [address] [id number] [place] [address] 15 Sep, 2010 [facility] [place] [facility] [address] [id number] [place] [address] Apr, [facility] [place] [facility] [address] [id number] [place] [address] 16 Mar, 2010 [facility] [place] [facility] [address] [id number] [place] [address] 07 Jan, 2010 [facility] [place] [facility] [address] [id number] [place] [address] 17 Dec, 2009 [facility] [place] [facility] [address] [id number] [place] [address] Nov, [facility] [place] [facility] [address] [id number] [place] [address] Sep, [facility] [place] [facility] [address] [id number] [place] [address] 16 Jul, 2009 [facility] [place] [facility] [address] [id number] [place] [address] Feb, [facility] [address] [facility] [id number] [place] [address] Jan, IMMUNIZATIONS No Known Immunizations SOCIAL HISTORY Never Assessed REASON FOR VISIT Controlled Med Refill PLAN OF CARE VITAL SIGNS MEDICATIONS Medication Instructions Dosage Frequency Start Date End Date Duration Status Hydrocodone-Acetaminophen 7.5-325 MG Orally 3 times a day 1 tablet as needed 8h Dec, 14 days Active RESULTS No Results PROCEDURES No Known procedures INSTRUCTIONS MEDICATIONS ADMINISTERED No Known Medications MEDICAL (GENERAL) HISTORY Type Description Date Medical History spinal compression fracture Medical History cardiovascular disease Medical History stent placed 03-07-15 Surgical History cardiac stent 03-07-15 Surgical History Cardiac stent 11/2015 Hospitalization History CA with stent placement 03-06-15 Hospitalization History Cardiac Stent Collapsed/Heart attack 11/2015
--- OUTSIDE RECORDS SUMMARY | 2018-01-15 21:03 | XMS REPORT ---
Author Author ROB RAMIREZ [facility] Address [address] [place] [address] Care Team Providers Care Senior Sales Director Name Role Phone ROB RAMIREZ Unavailable PROBLEMS Type Condition ICD9-CM Code SJP07-RJ Code Onset Dates Condition Status SNOMED Code Problem Erectile dysfunction due to arterial insufficiency N52.01 Active 499008495 Problem Recurrent right knee instability M23.51 Active 836064362 Problem Other chronic pain G89.29 Active 65500065 Problem Lumbar radiculopathy, chronic M54.16 Active 364244097 Problem Right leg weakness R29.898 Active [id number] Problem Mixed hyperlipidemia E78.2 Active 564421901 Problem Morbid obesity E66.01 Active 321387292 Problem Coronary artery disease involving [place] coronary artery of [place] 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 Active [id number] Problem Morbid (severe) obesity due to excess calories E66.01 Active 487930606 Problem Cervical spinal stenosis M48.02 Active 51306454 Problem Foot pain, left M79.672 Active 89946065 Problem HTN (hypertension) I10 Active 81829640 Problem Cardiac disease I51.9 Active 82156780 Problem Ingrowing nail L60.0 Active 759225255 Problem 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 Active 636654064 Problem Obesity E66.9 Active 795066294 Problem Polyneuropathy associated with underlying disease G63 Active [id number] ALLERGIES No Information ENCOUNTERS Encounter Location Date Diagnosis [facility] [address] [facility] [id number] [address] Jan, [facility] [id number] [place] [address] 15970- 3758 Dec, Cervical spinal stenosis M48.02 [facility] [address] [id number] [address] 4968 Dec, Cervical spinal stenosis M48.02 [facility] [id number] [place] [address] 51081- 3118 14 Dec, 2017 [facility] [address] [address]- 5364 13 Dec, 2017 Lumbar radiculopathy, chronic M54.16 [facility] [address] [address]79- 4702 07 Dec, 2017 Cervical spinal stenosis M48.02 [facility] [id number] [place] [address] 81185- 5965 Nov, Cardiac disease I51.9 and HTN (hypertension) I10 [facility] [address] 58492- 9527 Nov, Lumbar radiculopathy, chronic M54.16 [place] [address] 31206- 3187 Nov, Cervical spinal stenosis M48.02 [facility] [address] 12314- 5184 Nov, Lumbar radiculopathy, chronic M54.16 [facility] [address] 40507- 5470 27 Oct, 2017 Lumbar radiculopathy, chronic M54.16 [facility] [id number] [place] [address] 04645- 9814 24 Oct, 2017 Cervical spinal stenosis M48.02 [facility] [id number] [place] [address] 30050- 2106 10 Oct, 2017 Lumbar radiculopathy, chronic M54.16 [facility] [address] 87665- 0882 27 Sep, 2017 Cervical spinal stenosis M48.02 [facility] [id number] [place] [address] 12073- 4895 Sep, Cervical spinal stenosis M48.02 [facility] [address] [address] 34[address] Sep, Lumbar radiculopathy, chronic M54.16 [place] [id number] [place] [address] 93154- 6855 Sep, Lumbar radiculopathy, chronic M54.16 and BMI 50.0-59.9, adult Z68.43 [place] [id number] [place] [address] 75652- 9006 Aug, Cervical spinal stenosis M48.02 [place] [id number] [place] [address] 39536- 2088 Aug, [place] [id number] [place] [address] 48981- 9042 Jul, Cervical spinal stenosis M48.02 [place] [id number] [place] [address] 97951- 6202 Jul, Medicare annual wellness visit, initial Z00.00 ; Morbid ( severe) obesity due to excess calories E66.01 ; Coronary artery disease involving [place] coronary artery of [place] 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 ; 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 ; Polyneuropathy associated with underlying disease G63 ; HTN (hypertension) I10 ; Mixed hyperlipidemia E78.2 ; BMI 50.0-59.9, adult Z68.43 and Encounter for immunization Z23 [place] [id number] [place] [address] 05181- 5737 Jul, Cervical spinal stenosis M48.02 ; HTN (hypertension) I10 ; Coronary artery disease involving [place] coronary artery of [place] 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 and Right leg weakness R29.898 [place] [id number] [place] [address] 26635- 8112 June, Cervical spinal stenosis M48.02 [place] [id number] [place] [address] 84438- 1551 June, Cervical spinal stenosis M48.02 [place] [id number] [place] [address] 63721- 2515 05 May, 2017 Cervical spinal stenosis M48.02 [place] [address] 09775- 4701 07 Apr, 2017 Cervical spinal stenosis M48.02 [facility] [id number] [place] [address] 44796 -4882 14 Mar, 2017 Neck pain on right side M54.2 and BMI 50.0-59.9, adult Z68.43 [place] [address] 39974- 0055 06 Mar, 2017 Cervical spinal stenosis M48.02 [place] [address] 34535- 2940 Feb, Cervical spinal stenosis M48.02 [place] [address] 91779- 8379 Feb, [place] [address] 43747- 5434 Feb, Morbid (severe) obesity due to excess calories E66.01 and Coronary artery disease involving [place] coronary artery of [place] 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 [place] [place] [id number] [place] [address] 42053- 5700 05 Feb, 2017 Mixed hyperlipidemia E78.2 and HTN (hypertension) I10 [place] [facility] [id number] [place] [address] 03323- 1663 Feb, Cervical spinal stenosis M48.02 ; HTN (hypertension) I10 ; Mixed hyperlipidemia E78.2 ; Recurrent right knee instability M23.51 and Morbid obesity E66.01 [place] [address] 03975- 4560 13 Jan, 2017 Other chronic pain G89.29 [place] [id number] [place] [address] 25138- 5193 16 Dec, 2016 Other chronic pain G89.29 [place] [id number] [place] [address] 69100- 7799 Nov, Other chronic pain G89.29 [facility] [id number] [place] [address] 41189- 4253 Oct, Other chronic pain G89.29 [facility] [id number] [place] [address] 85595- 8553 Sep, Other chronic pain G89.29 [facility] [id number] [place] [address] 06425- 7372 Sep, Other chronic pain G89.29 [facility] [id number] [place] [address] 37823- 6330 Sep, Tenderness of left calf M79.662 and Cervical spinal stenosis M48.02 [facility] [id number] [place] [address] 25104- 7537 Aug, Other chronic pain G89.29 [facility] [id number] [place] [address] 44895- 5758 Aug, Cervical radiculopathy M54.12 [facility] [id number] [place] [address] 21738 -5171 Aug, Cervical neuritis M54.12 [facility] [id number] [place] [address] 40835- 6940 Jul, Other chronic pain G89.29 [facility] [id number] [place] [address] [id number] Jul, Dental caries K02.9 [facility] [id number] [place] [address] 13966- 4042 Jul, Other chronic pain G89.29 [facility] [id number] [place] [address] 18900- 3357 June, Other chronic pain G89.29 [facility] [id number] [place] [address] [id number] May, Dental examination Z01.20 [facility] [id number] [place] [address] 19881- 1091 07 May, 2016 Other chronic pain G89.29 [facility] [id number] [place] [address]37 21 Apr, 2016 Cervical spinal stenosis M48.02 and Drug-induced constipation K59.03 [facility] [address] 67263- 7959 13 Apr, 2016 [facility] [id number] [place] [address] 24889- 4071 Apr, Other chronic pain G89.29 [facility] [address] 48990- 7152 Apr, [facility] [id number] [place] [address] 80576- 2075 Mar, [facility] [id number] [place] [address] 19454- 4243 10 Mar, 2016 Other chronic pain G89.29 [facility] [address] 07250- 9393 Feb, Other chronic pain G89.29 [facility] [id number] [place] [address] 22821- 5014 15 Jan, 2016 Other chronic pain G89.29 [facility] [id number] [place] [address] 05121- 1929 30 Dec, 2015 [facility] [id number] [place] [address] 87810- 1957 16 Dec, 2015 Other chronic pain G89.29 [facility] [id number] [place] [address] 6408 11 Dec, 2015 Cervical spinal stenosis M48.02 ; Encounter for immunization Z23 ; Polyneuropathy associated with underlying disease G63 and Erectile dysfunction due to arterial insufficiency N52.01 [facility] [address] [place] [address]- 9138 Nov, [facility] [id number] [place] [address] 43649- 1041 Nov, [facility] [id number] [place] [address] 24128- 2279 Oct, [facility] [id number] [place] [address] 76584- 5397 Sep, [facility] [address] 68509- 3407 Aug, [facility] [address] 29784- 0266 Jul, Other chronic pain G89.29 [facility] [id number] [place] [address] 93188 -2256 Jul, Angioedema, initial encounter T78.3XXA and Dental abscess K04.7 [facility] [address] 76365- 4404 Jul, Leg pain M79.606 [facility] [address] 79204- 7520 June, Other chronic pain G89.29 and Encounter for immunization Z23 [facility] [id number] [place] [address] 58620- 1242 June, [facility] [id number] [place] [address] 61754- 0333 May, Leg pain M79.606 [facility] [id number] [place] [address] 12049- 4708 Apr, Leg pain M79.606 and Cervical spinal stenosis M48.02 [facility] [id number] [place] [address] 73489- 5891 Apr, [facility] [id number] [place] [address] 47346- 4495 Mar, High ankle sprain of left lower extremity S93.432A [facility] [address] [place] [address] 86965- 8478 Mar, [facility] [id number] [place] [address] 88301- 8550 Mar, Left ankle pain M25.572 [facility] [id number] [place] [address] 43505- 7165 Mar, [facility] [id number] [place] [address] 84239- 3877 Mar, [facility] [id number] [place] [address] 49357- 1500 Mar, Leg pain M79.606 [facility] [id number] [place] [address] 53913- 1373 Mar, [facility] [id number] [place] [address] 38918- 4712 Mar, Ankle pain M25.579 ; Cardiac disease I51.9 ; Obesity E66.9 ; Leg pain M79.606 ; HTN (hypertension) I10 ; Ingrowing nail L60.0 ; 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 and Foot pain, left M79.672 [facility] [address] [place] [address] 67612- 7099 Feb, [facility] [id number] [place] [address] 77522- 8859 Jan, [facility] [id number] [place] [address] 13609- 1715 Dec, Cervical spinal stenosis M48.02 and Hypertension I10 [facility] [id number] [place] [address] 13731- 1739 Dec, [facility] [id number] [place] [address] 94055- 9336 Dec, [facility] [address] [facility] [id number] [place] [address]- 4554 Dec, [facility] [address] [facility] [id number] [place] [address]- 1469 Nov, [facility] [address] [facility] [id number] [place] 5912 Nov, [facility] [address] [facility] [id number] [place] [address]- 3851 Oct, [facility] [address] [facility] [id number] [place] [address]- 8715 Oct, [facility] [id number] [address]- 1373 Oct, [facility] [address] [address]- 8142 Oct, [facility] [address] [address]- 1130 Sep, [facility] [address] [address]- 4724 Sep, [facility] [address] [address]- 8685 Sep, Spinal stenosis in cervical region 723.0 ; Essential hypertension, benign 401.1 and Erectile dysfunction 607.84 [facility] [address] [address]- 7538 Sep, [facility] [id number] [address]- 6717 Aug, [facility] [address] 8010 Aug, [facility] [address] [address]- 2357 Jul, [facility] [id number] 7305 June, [facility] [address] [id number] [place] [address]- 9207 June, [facility] [address] [id number] [place] [address]- 2467 June, [facility] [address] [facility] [id number] [place] [address]- 7470 June, [facility] [id number] [address]- 5177 June, Spinal stenosis in cervical region 723.0 and Essential hypertension, benign 401.1 [facility] [address] [id number] [place] [address]- 4118 May, [facility] [address] [facility] [id number] [place] [address]- 7324 May, [facility] [id number] [address]- 1653 16 Apr, 2014 [facility] [address] [id number] [place] [address]- 9797 Apr, [facility] [address] [id number] [place] [address]- 1594 Apr, [facility] [address] [facility] [id number] [place] [address]- 5603 Apr, [facility] [id number] [address]- 1255 Mar, [facility] [address] [id number] [place] [address]- 1087 Mar, [facility] [address] [id number] [place] [address]- 8908 Feb, [facility] [address] [id number] [address]- 2075 Feb, [facility] [address] [facility] [id number] [place] 3639 Feb, [facility] [place] [facility] [address] [id number] [place] [address]- 8695 Feb, [facility] [place] [facility] [address] [id number] [place] [address]- 4602 Feb, [facility] [place] [facility] [address] [id number] [place] [address]- 0670 Jan, [facility] [place] [facility] [address] [id number] [place] [address]- 1095 Jan, [facility] [place] [facility] [address] [id number] [place] [address]- 0109 Jan, [facility] [place] [facility] [address] [id number] [place] [address]- 6699 Jan, [facility] [place] [facility] [address] [id number] [place] [address]- 9194 Dec, [facility] [place] [facility] [address] [id number] [place] [address]- 8761 Dec, [facility] [place] [facility] [address] [id number] [place] [address]- 0168 Nov, [facility] [place] [facility] [address] [id number] [place] [address]- 2349 Nov, [facility] [place] [facility] [address] [id number] [place] [address]- 7289 Oct, [facility] [place] [facility] [address] [id number] [place] [address]- 4493 Oct, [facility] [place] [facility] [address] [id number] [place] [address]- 3317 Oct, [facility] [place] [facility] [address] [id number] [place] [address]- 2127 Oct, [facility] [place] [facility] [address] [id number] [place] [address]- 7093 Sep, [facility] [place] [facility] [address] [id number] [place] [address]- 0652 Sep, [facility] [place] [facility] [address] [id number] [place] [address]- 0945 Jul, [facility] [place] [facility] [address] [id number] [place] 0555 Jul, [facility] [place] [facility] [address] [id number] [place] [address]- 9956 Jul, [facility] [place] [facility] [address] [id number] [place] [address]- 4245 Jul, [facility] [place] [facility] [address] [id number] [place] [address]- 4496 June, [facility] [place] [facility] [address] [id number] [place] [address]- 3546 June, [facility] [place] [facility] [address] [id number] [place] [address]- 7175 June, [facility] [place] [facility] [address] [id number] [place] [address]- 1646 June, [facility] [place] [facility] [address] [id number] [place] [address]- 6519 Mar, [facility] [place] [facility] [address] [id number] [place] [address]- 0455 Mar, [facility] [place] [facility] [address] [id number] [place] [address]- 4581 Mar, [facility] [place] [facility] [address] [id number] [place] [address]- 7804 Mar, [facility] [place] [facility] [address] [id number] [place] [address]- 8397 Mar, [facility] [place] [facility] [address] [id number] [place] [address]- 1283 Feb, [facility] [place] [facility] [address] [id number] [place] [address]- 8307 Feb, [facility] [place] [facility] [address] [id number] [place] [address]- 4040 Feb, [facility] [place] [facility] [address] [id number] [place] [address]- 6267 Feb, [facility] [place] [facility] [address] [id number] [place] [address]- 3267 Feb, [facility] [place] [facility] [address] [id number] [place] [address]- 2501 Feb, [facility] [place] [facility] [address] [id number] [place] [address]- 0164 Feb, [facility] [place] [facility] [address] [id number] [place] [address]- 4923 Feb, [facility] [place] [facility] [address] [id number] [place] [address]- 4380 Feb, [facility] [place] [facility] [address] [id number] [place] [address]- 3129 Feb, [facility] [place] [facility] [address] [id number] [place] [address]- 7881 Nov, [facility] [place] [facility] [address] [id number] [place] [address]- 6001 Nov, [facility] [place] [facility] [address] [id number] [place] [address] Nov, [facility] [place] [facility] [address] [id number] [place] [address] Nov, [facility] [place] [facility] [address] [id number] [place] [address] Nov, [facility] [place] [facility] [address] [id number] [place] [address] Nov, [facility] [place] [facility] [address] [id number] [place] [address] Aug, [facility] [place] [facility] [address] [id number] [place] [address] Aug, [facility] [address] [id number] [place] [address] Aug, 2012 [facility] [place] [facility] [address] [id number] [place] [address] Aug, [facility] [place] [facility] [address] [id number] [place] [address] May, [facility] [place] [facility] [address] [id number] [place] [address] 18 Apr, 2012 [facility] [address] [id number] [place] [address] Apr, [facility] [place] [facility] [address] [id number] [place] [address] Jan, [facility] [place] [facility] [address] [id number] [place] [address] 17 Jan, 2012 [facility] [place] [facility] [address] [id number] [place] [address] Jan, [facility] [place] [facility] [address] [id number] [place] [address] Jan, [facility] [place] [facility] [address] [id number] [place] [address] 17 Jan, 2012 [facility] [place] [facility] [address] [id number] [place] [address] 17 Jan, 2012 [facility] [place] [facility] [address] [id number] [place] [address] 17 Jan, 2012 [facility] [place] [facility] [address] [id number] [place] [address] 17 Jan, 2012 [facility] [place] [facility] [address] [id number] [place] [address] 12 Jan, 2012 [facility] [place] [facility] [address] [id number] [place] [address] 11 Jan, 2012 [facility] [place] [facility] [address] [id number] [place] [address] Jan, [facility] [place] [facility] [address] [id number] [place] [address] Jan, [facility] [place] [facility] [address] [id number] [place] [address] Jan, [facility] [place] [facility] [address] [id number] [place] [address] Dec, [facility] [place] [facility] [address] [id number] [place] [address] Dec, [facility] [place] [facility] [address] [id number] [place] [address] Dec, [facility] [place] [facility] [address] [id number] [place] [address] Sep, [facility] [place] [facility] [address] [id number] [place] [address] Sep, [facility] [place] [facility] [address] [id number] [place] [address] Sep, [facility] [place] [facility] [address] [id number] [place] [address] Aug, [facility] [place] [facility] [address] [id number] [place] [address] Aug, [facility] [place] [facility] [address] [id number] [place] [address] Aug, [facility] [place] [facility] [address] [id number] [place] [address] June, [facility] [place] [facility] [address] [id number] [place] [address] Apr, [facility] [place] [facility] [address] [id number] [place] [address] Apr, [facility] [place] [facility] [address] [id number] [place] [address] Mar, [facility] [place] [facility] [address] [id number] [place] [address] Feb, [facility] [place] [facility] [address] [id number] [place] [address] Feb, [facility] [place] [facility] [address] [id number] [place] [address] Jan, [facility] [place] [facility] [address] [id number] [place] [address] Jan, [facility] [place] [facility] [address] [id number] [place] [address] Dec, [facility] [place] [facility] [address] [id number] [place] [address] Dec, [facility] [place] [facility] [address] [id number] [place] [address] Dec, [facility] [place] [facility] [address] [id number] [place] [address] Nov, [facility] [place] [facility] [address] [id number] [place] [address] Sep, [facility] [place] [facility] [address] [id number] [place] [address] Apr, [facility] [place] [facility] [address] [id number] [place] [address] Mar, [facility] [place] [facility] [address] [id number] [place] [address] Jan, [facility] [place] [facility] [address] [id number] [place] [address] Dec, [facility] [place] [facility] [address] [id number] [place] [address] Nov, [facility] [place] [facility] [address] [id number] [place] [address] Sep, [facility] [place] [facility] [address] [id number] [place] [address] Jul, [facility] [address] [facility] [id number] [place] [address] Feb, [facility] [address] [facility] [id number] [place] [address] Jan, IMMUNIZATIONS No Known Immunizations SOCIAL HISTORY Never Assessed REASON FOR VISIT ambien refill PLAN OF CARE VITAL SIGNS MEDICATIONS Medication Instructions Dosage Frequency Start Date End Date Duration Status Ambien 10 mg Orally Once a day 1 tablet at bedtime as needed 24h Jul, Active RESULTS No Results PROCEDURES No Known procedures INSTRUCTIONS MEDICATIONS ADMINISTERED No Known Medications MEDICAL (GENERAL) HISTORY Type Description Date Medical History spinal compression fracture Medical History cardiovascular disease Medical History stent placed 03-07-15 Surgical History cardiac stent 03-07-15 Surgical History Cardiac stent 11/2015 Hospitalization History [place] with stent placement 03-06-15 Hospitalization History Cardiac Stent Collapsed/Heart attack 11/2015
--- OUTSIDE RECORDS SUMMARY | 2018-01-15 21:04 | XMS REPORT ---
Author Author ROB RAMIREZ Organization [facility] Address [address] [place] [address] Care Team Providers Care [employer] Name Role Phone ROB RAMIREZ Unavailable PROBLEMS Type Condition ICD9-CM Code FCZ20-CT Code Onset Dates Condition Status SNOMED Code Problem Erectile dysfunction due to arterial insufficiency N52.01 Active 842430803 Problem Recurrent right knee instability M23.51 Active 326092899 Problem Other chronic pain G89.29 Active 80223944 Problem Lumbar radiculopathy, chronic M54.16 Active 277447113 Problem Right leg weakness R29.898 Active [id number] Problem Mixed hyperlipidemia E78.2 Active 511080326 Problem Morbid obesity E66.01 Active 722067465 Problem Coronary artery disease involving coeur d'alene coronary artery of coe[place]ene 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 Active 7272540773130 Problem Morbid (severe) obesity due to excess calories E66.01 Active 112397819 Problem Cervical spinal stenosis M48.02 Active 23241608 Problem Foot pain, left M79.672 Active 22972992 Problem HTN (hypertension) I10 Active 40223749 Problem Cardiac disease I51.9 Active 29488715 Problem Ingrowing nail L60.0 Active 380593286 Problem 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 Active 845708902 Problem Obesity E66.9 Active 287317836 Problem Polyneuropathy associated with underlying disease G63 Active 912302503 ALLERGIES No Information ENCOUNTERS Encounter Location Date Diagnosis [facility] [id number], [place] [address] Dec, Cervical spinal stenosis M48.02 [facility] [address], [place] [address] Nov, Cardiac disease I51.9 and HTN (hypertension) I10 [facility] [id number], [place] [address] Nov, Lumbar radiculopathy, chronic M54.16 [facility] [id number] [place] [address] 31957- 0031 Nov, Cervical spinal stenosis M48.02 [facility] [id number] [place] [address] 64588- 4149 Nov, Lumbar radiculopathy, chronic M54.16 [facility] [address] [address]- [address] 27 Oct, 2017 Lumbar radiculopathy, chronic M54.16 [facility] [address] [address]- 0383 24 Oct, 2017 Cervical spinal stenosis M48.02 [facility] [id number] [place] [address] 33579- 1953 Oct, Lumbar radiculopathy, chronic M54.16 [facility] [address] [address]- 1948 Sep, Cervical spinal stenosis M48.02 [facility] [address] [address]- 3980 Sep, Cervical spinal stenosis M48.02 [facility] [id number] [place] [address] 08159- 9645 Sep, Lumbar radiculopathy, chronic M54.16 [facility] [id number] [place] [address] 88432- 6294 Sep, Lumbar radiculopathy, chronic M54.16 and BMI 50.0-59.9, adult Z68.43 [facility] [id number] [place] [address] 05683- 5337 Aug, Cervical spinal stenosis M48.02 [facility] [id number] [place] [address] 63560- 5225 Aug, [facility] [address] 12645- 9973 Jul, Cervical spinal stenosis M48.02 [facility] [id number] [place] [address] 98347- 4644 Jul, Medicare annual wellness visit, initial Z00.00 ; Morbid ( severe) obesity due to excess calories E66.01 ; Coronary artery disease involving coeur d'alene coronary artery of coe[place] 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 ; 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 ; Polyneuropathy associated with underlying disease G63 ; HTN (hypertension) I10 ; Mixed hyperlipidemia E78.2 ; BMI 50.0-59.9, adult Z68.43 and Encounter for immunization Z23 [facility] [facility] [address] [address]- 2619 04 Jul, 2017 Cervical spinal stenosis M48.02 ; HTN (hypertension) I10 ; Coronary artery disease involving coeur d'alene coronary artery of [place] 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 and Right leg weakness R29.898 [facility] [facility] [address] [address]- 3102 June, Cervical spinal stenosis M48.02 [facility] [address] 80272- 0901 June, Cervical spinal stenosis M48.02 [facility] [id number] [place] [address] 39619- 6275 May, Cervical spinal stenosis M48.02 [facility] [address] 19343- 1551 Apr, Cervical spinal stenosis M48.02 [facility] [id number] [place] [address] 27215 -6946 14 Mar, 2017 Neck pain on right side M54.2 and BMI 50.0-59.9, adult Z68.43 [facility] [id number] [place] [address] 14680- 7263 06 Mar, 2017 Cervical spinal stenosis M48.02 [facility] [address] 61305- 3760 Feb, Cervical spinal stenosis M48.02 [facility] [id number] [place] [address] 04704- 9720 Feb, [facility] [facility] [id number] [place] [address] 59919- 1867 Feb, Morbid (severe) obesity due to excess calories E66.01 and Coronary artery disease involving coe[place] d'alene coronary artery of [place] 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 [facility] [id number] [place] [address] 38242- 9866 05 Feb, 2017 Mixed hyperlipidemia E78.2 and HTN (hypertension) I10 [facility] [id number] [place] [address] 44342- 9251 Feb, Cervical spinal stenosis M48.02 ; HTN (hypertension) I10 ; Mixed hyperlipidemia E78.2 ; Recurrent right knee instability M23.51 and Morbid obesity E66.01 [facility] [facility] [id number] [place] [address] 66299- 9092 Jan, Other chronic pain G89.29 [facility] [id number] [place] [address] 30393- 6027 Dec, Other chronic pain G89.29 [facility] [id number] [place] [address] 62114- 7228 Nov, Other chronic pain G89.29 [facility] [id number] [place] [address] 87923- 4142 Oct, Other chronic pain G89.29 [facility] [id number] [place] [address] 75052- 6717 Sep, Other chronic pain G89.29 [facility] [id number] [place] [address] 39130- 2807 Sep, Other chronic pain G89.29 [facility] [id number] [place] [address] 57260- 3466 Sep, Tenderness of left calf M79.662 and Cervical spinal stenosis M48.02 [facility] [id number] [place] [address] 96223- 8772 Aug, Other chronic pain G89.29 [facility] [id number] [place] [address] 66948- 2344 Aug, Cervical radiculopathy M54.12 [facility] [id number] [place] [address] 62122 -6099 Aug, Cervical neuritis M54.12 [facility] [id number] [place] [address] 55744- 4318 Jul, Other chronic pain G89.29 [facility] [id number] [place] [address] [id number] Jul, Dental caries K02.9 [facility] [id number] [place] [address] 83072- 9758 Jul, Other chronic pain G89.29 [facility] [id number] [place] [address] 29545- 1031 June, Other chronic pain G89.29 [facility] [id number] [place] [address] [id number] May, Dental examination Z01.20 [facility] [id number] [place] [address] 93096- 4794 May, Other chronic pain G89.29 [facility] [id number] [place] [address] 51153- 7971 Apr, Cervical spinal stenosis M48.02 and Drug-induced constipation K59.03 [facility] [id number] [place] [address] 87545- 7866 Apr, [facility] [id number] [place] [address] 70961- 1624 Apr, Other chronic pain G89.29 [facility] [id number] [place] [address] 53245- 0043 Apr, [facility] [id number] [place] [address] 90614- 2522 Mar, [facility] [id number] [place] [address] 126380- 1806 Mar, Other chronic pain G89.29 [facility] [id number] [place] [address] 58952- 3348 Feb, Other chronic pain G89.29 [facility] [id number] [place] [address] 58592- 2118 Jan, Other chronic pain G89.29 [facility] [id number] [place] [address] 46415- 1185 Dec, [facility] [id number] [place] [address] 25486- 6079 Dec, Other chronic pain G89.29 [facility] [id number] [place] [address] 00661- 6729 Dec, Cervical spinal stenosis M48.02 ; Encounter for immunization Z23 ; Polyneuropathy associated with underlying disease G63 and Erectile dysfunction due to arterial insufficiency N52.01 [facility] [id number] [place] [address] 05124- 0722 Nov, [facility] [id number] [place] [address] 30896- 6889 Nov, [facility] [id number] [place] [address] 98951- 6813 Oct, [facility] [id number] [place] [address] 84345- 1336 Sep, [facility] [id number] [place] [address] 00519- 4565 Aug, [facility] [address], [place] [address]- 2426 Jul, Other chronic pain G89.29 [facility] [id number] [place] [address] 36758 -4463 Jul, Angioedema, initial encounter T78.3XXA and Dental abscess K04.7 [facility] [address] 99859- 2120 Jul, Leg pain M79.606 [facility] [address] 33495- 7734 June, Other chronic pain G89.29 and Encounter for immunization Z23 [facility] [facility] [address] 36032- 7044 June, [facility] [address] 54455- 1204 May, Leg pain M79.606 [facility] [facility] [address] 39199- 2317 Apr, Leg pain M79.606 and Cervical spinal stenosis M48.02 [facility] [address] 53972- 7868 Apr, [facility] [address] 97425- 8140 Mar, High ankle sprain of left lower extremity S93.432A [place] [facility] [address] 22064- 6332 Mar, [place] [facility] [address] 19345- 2013 Mar, Left ankle pain M25.572 [facility] [address] 59659- 9157 Mar, [facility] [id number] [place] [address] 33272- 9405 Mar, [facility] [address] 48357- 6911 Mar, Leg pain M79.606 [facility] [id number] [place] [address] 87979- 5745 Mar, [facility] [id number] [place] [address] 18366- 8736 Mar, Ankle pain M25.579 ; Cardiac disease I51.9 ; Obesity E66.9 ; Leg pain M79.606 ; HTN (hypertension) I10 ; Ingrowing nail L60.0 ; 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 and Foot pain, left M79.672 [facility] [id number] [place] [address] 16895- 7383 Feb, [facility] [id number] [place] [address] 50348- 3106 Jan, [facility] [id number] [place] [address] 37764- 6630 Dec, Cervical spinal stenosis M48.02 and Hypertension I10 [facility] [id number] [place] [address] 37318- 1766 Dec, [facility] [id number] [place] [address] 30571- 9452 Dec, [facility] [id number] [place] [address] 42347- 3801 Dec, [facility] [id number] [place] [address] 60659- 8633 Nov, [facility] [id number] [place] [address] 98353- 9696 Nov, [facility] [id number] [place] [address] 66193- 3868 Oct, [facility] [id number] [place] [address] 83822- 7377 Oct, [facility] [id number] [place] [address] 35442- 2619 Oct, [facility] [address], [place] [address]- 3031 Oct, [facility] [address], [place] [address]- 6138 Sep, [facility] [address], [place] [address]- 4651 Sep, [facility] [address] [place] [address] 73988- 9267 Sep, Spinal stenosis in cervical region 723.0 ; Essential hypertension, benign 401.1 and Erectile dysfunction 607.84 [facility] [address], [place] [address]- 0911 Sep, [facility] [address], [place] [address]- 5021 Aug, [facility] [address], [place] [address]- 7129 Aug, [facility] [address], [place] [address]- 7163 Jul, [facility] [address], [place] [address]- 2830 June, [facility] [address], [place] [address]- 7678 June, [facility] [address], [place] [address]- 5541 June, [facility] [address], [place] [address]- 9451 June, [facility] [address] 0912 June, Spinal stenosis in cervical region 723.0 and Essential hypertension, benign 401.1 [facility] [address]- 4174 May, [facility] [id number] [place] [address]- 1912 13 May, 2014 [facility] [place] [facility] [address] [id number] [place] [address]- 5142 16 Apr, 2014 [facility] [place] [facility] [address] [id number] [place] [address]- 9616 16 Apr, 2014 [facility] [place] [facility] [address] [id number] [place] [address]- 1095 Apr, [facility] [place] [facility] [address] [id number] [place] [address]- 9966 Apr, [facility] [place] [facility] [address] [id number] [place] [address]- 6890 Mar, [facility] [place] [facility] [address] [id number] [place] [address]- 9596 Mar, [facility] [place] [facility] [address] [id number] [place] [address]- 0874 Feb, [facility] [place] [facility] [address] [id number] [place] [address]- 5738 Feb, [facility] [place] [facility] [address] [id number] [place] [address]- 4619 Feb, [facility] [place] [facility] [address] [id number] [place] [address]- 4556 Feb, [facility] [place] [facility] [address] [id number] [place] [address]- 3438 Feb, [facility] [place] [facility] [address] [id number] [place] [address]- 4832 Jan, [facility] [place] [facility] [address] [id number] [place] [address]- 4106 Jan, [facility] [place] [facility] [address] [id number] [place] [address]- 3936 Jan, [facility] [place] [facility] [address] [id number] [place] [address]- 1444 Jan, [facility] [place] [facility] [address] [id number] [place] [address]- 4748 Dec, [facility] [place] [facility] [address] [id number] [place] [address]- 0290 Dec, [facility] [place] [facility] [address] [id number] [place] [address]- 5234 Nov, [facility] [place] [facility] [address] [id number] [place] [address]- 7374 Nov, [facility] [place] [facility] [address] [id number] [place] [address]- 7475 Oct, [facility] [place] [facility] [address] [id number] [place] [address]- 6280 Oct, [facility] [place] [facility] [address] [id number] [place] [address]- 4560 Oct, [facility] [place] [facility] [address] [id number] [place] [address]- 3767 Oct, [facility] [place] [facility] [address] [id number] [place] [address]- 9782 Sep, [facility] [place] [facility] [address] [id number] [place] [address]- 2816 Sep, [facility] [place] [facility] [address] [id number] [place] [address]- 5000 Jul, [facility] [place] [facility] [address] [id number], [place] [address]- 0038 Jul, [facility] [place] [facility] [address] [id number] [place] [address]- 9233 Jul, [facility] [place] [facility] [address] [id number] [place] [address]- 4668 Jul, [facility] [place] [facility] [address] [id number] [place] [address]- 6465 June, [facility] [place] [facility] [address] [id number] [place] [address]- 0901 June, [facility] [place] [facility] [address] [id number] [place] [address]- 6412 June, [facility] [place] [facility] [address] [id number] [place] [address]- 5925 June, [facility] [place] [facility] [address] [id number] [place] [address]- 8146 Mar, [facility] [place] [facility] [address] [id number] [place] [address]- 5034 Mar, [facility] [place] [facility] [address] [id number] [place] [address]- 7597 Mar, [facility] [place] [facility] [address] [id number] [place] [address]- 4033 Mar, [facility] [place] [facility] [address] [id number] [place] [address]- 5249 Mar, [facility] [place] [facility] [address] [id number] [place] [address]- 9156 Feb, [facility] [place] [facility] [address] [id number] [place] [address]- 4699 Feb, [facility] [place] [facility] [address] [id number] [place] [address]- 6261 Feb, [facility] [place] [facility] [address] [id number] [place] [address]- 9976 Feb, [facility] [place] [facility] [address] [id number] [place] [address]- 6669 Feb, [facility] [place] [facility] [address] [id number] [place] [address]- 6259 Feb, [facility] [place] [facility] [address] [id number] [place] [address]- 4470 Feb, [facility] [place] [facility] [address] [id number] [place] [address]- 0050 Feb, [facility] [place] [facility] [address] [id number] [place] [address]- 8406 Feb, [facility] [place] [facility] [address] [id number] [place] [address]- 8606 Feb, [facility] [place] [facility] [address] [id number] [place] [address]- 1144 Nov, [facility] [place] [facility] [address] [id number] [place] [address]- 8225 Nov, [facility] [place] [facility] [address] [id number] [place] [address]- 2257 Nov, [facility] [place] [facility] [address] [id number] [place] [address]- 3576 Nov, [facility] [place] [facility] [address] [id number] [place] [address]- 1854 Nov, [facility] [place] [facility] [address] [id number] [place] [address]- 9712 Nov, [facility] [place] [facility] [address] [id number] [place] [address]- 6756 Aug, [facility] [place] [facility] [address] [id number] [place] [address]- 3842 Aug, [facility] [place] [facility] [address] [id number] [place] [address]- 3567 Aug, [facility] [place] [facility] [address] [id number], [place] [address]- 8139 Aug, [facility] [place] [facility] [address] [id number] [place] [address]- 5546 May, [facility] [place] [facility] [address] [id number] [place] [address]- 3206 Apr, [facility] [place] [facility] [address] [id number], [place] [address]- 8386 Apr, [facility] [place] [facility] [address] [id number], [place] [address]- 7789 17 Jan, 2012 [facility] [place] [facility] [address] [id number] [place] [address]- 0926 17 Jan, 2012 [facility] [place] [facility] [address] [id number] [place] [address]- 0226 17 Jan, 2012 [facility] [place] [facility] [address] [id number] [place] [address]- 6506 17 Jan, 2012 [facility] [place] [facility] [address] [id number] [place] [address]- 6102 17 Jan, 2012 [facility] [place] [facility] [address] [id number] [place] [address]- 2906 17 Jan, 2012 [facility] [place] [facility] [address] [id number] [place] 4954 17 Jan, 2012 [facility] [place] [facility] [address] [id number] [place] [address] 17 Jan, 2012 [facility] [place] [facility] [address] [id number] [place] [address] 12 Jan, 2012 [facility] [place] [facility] [address] [id number] [place] [address] 11 Jan, 2012 [facility] [place] [facility] [address] [id number] [place] [address] 11 Jan, 2012 [facility] [place] [facility] [address] [id number] [place] [address] 10 Jan, 2012 [facility] [place] [facility] [address] [id number] [place] [address] Jan, [facility] [place] [facility] [address] [id number] [place] [address] Dec, [facility] [place] [facility] [address] [id number] [place] [address] Dec, [facility] [place] [facility] [address] [facility] [id number] [place] [address] 19 Dec, 2011 [facility] [place] [facility] [address] [id number] [place] [address] Sep, [facility] [place] [facility] [address] [id number] [place] [address] 4689 Sep, [facility] [place] [facility] [address] [id number] [place] [address]46 Sep, [facility] [place] [facility] [address] [id number] [place] [address] 2071 Aug, [facility] [place] [facility] [address] [id number] [place] [address] Aug, [facility] [place] [facility] [address] [id number] [place] [address]67 Aug, [facility] [place] [facility] [address] [id number] [place] [address] June, [facility] [place] [facility] [address] [id number] [place] [address] Apr, [facility] [place] [facility] [address] [id number] [place] [address] Apr, [facility] [place] [facility] [address] [id number] [place] [address] Mar, [facility] [place] [facility] [address] [id number] [place] [address] Feb, [facility] [place] [facility] [address] [id number] [place] [address] Feb, [facility] [place] [facility] [address] [id number] [place] [address] 36[address] Jan, [facility] [place] [facility] [address] [id number] [place] [address] 9116 Jan, [facility] [place] [facility] [address] [id number] [place] [address] 2546 Dec, [facility] [place] [facility] [address] [id number] [place] [address] Dec, [facility] [id number] [address] Dec, [facility] [address], [place] [address] Nov, [facility] [address], [place] [address] Sep, [facility] [id number] [place] [address] Apr, [facility] [id number] [place] [address]- 86[address] Mar, [facility] [id number] [place] [address] Jan, [facility] [id number], [place] [address] Dec, [facility] [id number] [place] [address] Nov, [facility] [address], [place] [address] Sep, [facility] [address], [place] [address] Jul, [facility] [address] [place] [address] Feb, [facility] [address], [place] [address] Jan, IMMUNIZATIONS No Known Immunizations SOCIAL HISTORY Never Assessed REASON FOR VISIT Controlled Med Refill 12/22 PLAN OF CARE VITAL SIGNS MEDICATIONS Medication [...] Surgical History Cardiac stent 11/2015 Hospitalization History [place] with stent placement 03-06-15 Hospitalization History Cardiac Stent Collapsed/Heart attack 11/2015
--- OUTSIDE RECORDS SUMMARY | 2018-01-15 21:04 | XMS REPORT ---
Author Author ROB RAMIREZ Organization [facility] Address [address] [place] [address] Care Team Providers Care Purchasing Engineer Name Role Phone ROB RAMIREZ Unavailable PROBLEMS Type Condition ICD9-CM Code XPM55-WJ Code Onset Dates Condition Status SNOMED Code Problem Erectile dysfunction due to arterial insufficiency N52.01 Active 167110088 Problem Recurrent right knee instability M23.51 Active 707889607 Problem Other chronic pain G89.29 Active 86116105 Problem Lumbar radiculopathy, chronic M54.16 Active 941043349 Problem Right leg weakness R29.898 Active [id number] Problem Mixed hyperlipidemia E78.2 Active 887485223 Problem Morbid obesity E66.01 Active 310814537 Problem Coronary artery disease involving [place] coronary artery of [place] 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 Active 1180032319600 Problem Morbid (severe) obesity due to excess calories E66.01 Active 435889340 Problem Cervical spinal stenosis M48.02 Active 16073969 Problem Foot pain, left M79.672 Active 33416520 Problem HTN (hypertension) I10 Active 68800005 Problem Cardiac disease I51.9 Active 66165258 Problem Ingrowing nail L60.0 Active 471465556 Problem 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 Active 140908303 Problem Obesity E66.9 Active 853356681 Problem Polyneuropathy associated with underlying disease G63 Active 288458459 ALLERGIES No Information ENCOUNTERS Encounter Location Date Diagnosis [facility] [address] [facility] [id number] [address] Jan, [facility] [address], [place] [address] Dec, [facility] [address] [id number] [address] Dec, Lumbar radiculopathy, chronic M54.16 [facility] [id number] [place] [address] 93503- 4409 Dec, Cervical spinal stenosis M48.02 [facility] [address] [address]234- 7276 Nov, Cardiac disease I51.9 and HTN (hypertension) I10 [facility] [address] 8[address]40- 8236 Nov, Lumbar radiculopathy, chronic M54.16 [facility] [address] 73702- 3693 Nov, Cervical spinal stenosis M48.02 [facility] [address] 30243- 8506 Nov, Lumbar radiculopathy, chronic M54.16 [facility] [address] 32136- 5428 27 Oct, 2017 Lumbar radiculopathy, chronic M54.16 [facility] [address] 17842- 0156 24 Oct, 2017 Cervical spinal stenosis M48.02 [facility] [address] 90523- 7026 10 Oct, 2017 Lumbar radiculopathy, chronic M54.16 [facility] [id number] [place] [address] 98834- 9228 Sep, Cervical spinal stenosis M48.02 [facility] [id number] [place] [address] 22586 2542 Sep, Cervical spinal stenosis M48.02 [facility] [address] 93409- 2331 16 Sep, 2017 Lumbar radiculopathy, chronic M54.16 [facility] [id number] [place] [address] 73972- 2540 Sep, Lumbar radiculopathy, chronic M54.16 and BMI 50.0-59.9, adult Z68.43 [facility] [id number] [place] [address] 72280- 6945 Aug, Cervical spinal stenosis M48.02 [facility] [id number] [place] [address] 07109- 1086 Aug, [place] [id number] [place] [address] 37285- 8847 Jul, Cervical spinal stenosis M48.02 [place] [id number] [place] [address] 60407- 3069 Jul, Medicare annual wellness visit, initial Z00.00 ; Morbid ( severe) obesity due to excess calories E66.01 ; Coronary artery disease involving [place] coronary artery of [place] 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 ; 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 ; Polyneuropathy associated with underlying disease G63 ; HTN (hypertension) I10 ; Mixed hyperlipidemia E78.2 ; BMI 50.0-59.9, adult Z68.43 and Encounter for immunization Z23 [place] [id number] [place] [address] 56515- 7726 Jul, Cervical spinal stenosis M48.02 ; HTN (hypertension) I10 ; Coronary artery disease involving [place] coronary artery of [place] 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 and Right leg weakness R29.898 [place] [id number] [place] [address] 23637- 1607 June, Cervical spinal stenosis M48.02 [place] [address] [id number] [address]- 4181 June, Cervical spinal stenosis M48.02 [place] [id number] [place] [address] 75733- 7916 May, Cervical spinal stenosis M48.02 [facility] [address], [place] [address]- 7041 Apr, Cervical spinal stenosis M48.02 [facility] [id number] [place] [address] 30703 -7256 14 Mar, 2017 Neck pain on right side M54.2 and BMI 50.0-59.9, adult Z68.43 [place] [id number] [place] [address] 32756- 8775 06 Mar, 2017 Cervical spinal stenosis M48.02 [place] [address] 19820- 0060 Feb, Cervical spinal stenosis M48.02 [place] [address] 38807- 6212 Feb, [place] [address] 46046- 4289 Feb, Morbid (severe) obesity due to excess calories E66.01 and Coronary artery disease involving [place] coronary artery of [place] 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 [place] [id number] [place] [address] 65574- 2888 Feb, Mixed hyperlipidemia E78.2 and HTN (hypertension) I10 [place] [id number] [place] [address] 81720- 4833 Feb, Cervical spinal stenosis M48.02 ; HTN (hypertension) I10 ; Mixed hyperlipidemia E78.2 ; Recurrent right knee instability M23.51 and Morbid obesity E66.01 [place] [id number] [place] [address] 56259- 5168 Jan, Other chronic pain G89.29 [place] [id number] [place] [address] 16183- 8351 Dec, Other chronic pain G89.29 [place] [address] 62646- 8015 Nov, Other chronic pain G89.29 [place] [id number] [place] [address] 07584- 2890 Oct, Other chronic pain G89.29 [place] [id number] [place] [address] 35782- 7258 Sep, Other chronic pain G89.29 [facility] [address] 80717- 9074 Sep, Other chronic pain G89.29 [facility] [id number] [place] [address] 29561- 0308 Sep, Tenderness of left calf M79.662 and Cervical spinal stenosis M48.02 [facility] [id number] [place] [address] 05444- 5433 Aug, Other chronic pain G89.29 [facility] [id number] [place] [address] 32339- 7286 Aug, Cervical radiculopathy M54.12 [facility] [id number] [place] [address] 21498 -3040 Aug, Cervical neuritis M54.12 [facility] [id number] [place] [address] 58060- 8287 Jul, Other chronic pain G89.29 [facility] [id number] [place] [address] [id number] Jul, Dental caries K02.9 [facility] [id number] [place] [address] 52472- 9505 Jul, Other chronic pain G89.29 [facility] [id number] [place] [address] 76267- 6850 June, Other chronic pain G89.29 [facility] [address] [place] [address] [id number] May, Dental examination Z01.20 [facility] [id number] [place] [address] 06955- 0040 May, Other chronic pain G89.29 [facility] [id number] [place] [address] 66992- 9270 Apr, Cervical spinal stenosis M48.02 and Drug-induced constipation K59.03 [facility] [id number] [place] [address] 86045- 0137 Apr, [facility] [id number] [place] [address] 20653- 2473 Apr, Other chronic pain G89.29 [facility] [address] 15629- 3397 Apr, [facility] [id number] [place] [address] 19120- 2391 Mar, [facility] [address] 09885- 6697 Mar, Other chronic pain G89.29 [facility] [address] 67605- 3750 Feb, Other chronic pain G89.29 [facility] [id number] [place] [address] 07051- 9682 Jan, Other chronic pain G89.29 [facility] [id number] [place] [address] 79799- 5826 Dec, [facility] [id number] [place] [address] 65709- 8266 16 Dec, 2015 Other chronic pain G89.29 [facility] [id number] [place] [address] 67395- 0276 Dec, Cervical spinal stenosis M48.02 ; Encounter for immunization Z23 ; Polyneuropathy associated with underlying disease G63 and Erectile dysfunction due to arterial insufficiency N52.01 [facility] [address] 38405- 2582 Nov, [facility] [id number] [place] [address] 25935- 0300 04 Nov, 2015 [facility] [address] 64728- 0200 Oct, [facility] [id number] [place] [address] 24117- 0322 Sep, [facility] [id number] [place] [address] 46766- 8781 Aug, [facility] [id number] [place] [address] 22492- 1542 Jul, Other chronic pain G89.29 [facility] [id number] [place] [address] 99986 -8108 Jul, Angioedema, initial encounter T78.3XXA and Dental abscess K04.7 [place] [address] 89153- 9235 Jul, Leg pain M79.606 [place] [address] 30488- 3719 June, Other chronic pain G89.29 and Encounter for immunization Z23 [place] [id number] [place] [address] 20789- 7884 June, [facility] [address] 04889- 9860 May, Leg pain M79.606 [facility] [id number] [place] [address] 13747- 4502 Apr, Leg pain M79.606 and Cervical spinal stenosis M48.02 [facility] [id number] [place] [address] 62722- 9655 Apr, [facility] [id number] [place] [address] 67619- 3936 Mar, High ankle sprain of left lower extremity S93.432A [facility] [id number] [place] [address] 93340- 9698 15 Mar, 2015 [facility] [id number] [place] [address] 67756- 4851 Mar, Left ankle pain M25.572 [facility] [id number] [place] [address] 67562- 3171 Mar, [facility] [id number] [place] [address] 93415- 3090 Mar, [facility] [id number] [place] [address] 72232- 9053 Mar, Leg pain M79.606 [facility] [id number] [place] [address] 04866- 1326 Mar, [facility] [address] 61082- 8596 Mar, Ankle pain M25.579 ; Cardiac disease I51.9 ; Obesity E66.9 ; Leg pain M79.606 ; HTN (hypertension) I10 ; Ingrowing nail L60.0 ; 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 and Foot pain, left M79.672 [facility] [id number] [place] [address] 62638- 4791 Feb, [facility] [id number] [place] [address] 37861- 6568 Jan, [facility] [id number] [place] [address] 69527- 8797 Dec, Cervical spinal stenosis M48.02 and Hypertension I10 [facility] [id number] [place] [address] 25913- 0558 Dec, [facility] [id number] [place] [address] 66532- 9745 Dec, [facility] [id number] [place] [address] 83585- 8541 Dec, [facility] [id number] [place] [address] 08008- 7432 Nov, [facility] [id number] [place] [address] 67753- 3778 Nov, [facility] [id number], [place] [address]- 9809 Oct, [facility] [id number] 4102 Oct, [facility] [address], [place] [address]- 0768 Oct, [facility] [id number] [place] [address] 015714- 0912 Oct, [facility] [address] [place] [address] 66057- 6706 Sep, [facility] [id number] [place] [address] 31479- 4546 Sep, [facility] [id number] [place] [address] 38526- 4255 Sep, Spinal stenosis in cervical region 723.0 ; Essential hypertension, benign 401.1 and Erectile dysfunction 607.84 [facility] [address], [place] [address]- 9370 Sep, [facility] [address], [place] [address]- 1765 Aug, [facility] [address], [place] [address]- 7560 Aug, [facility] [id number], [place] [address]- 4195 Jul, [facility] [id number], [place] [address]- 5071 June, [facility] [id number]- 2834 June, [facility] [address], [place] [address]- 5119 June, [facility] [id number] [place] [address]- 6371 June, [facility] [address] [facility] [id number] [place] [address]- 9488 June, Spinal stenosis in cervical region 723.0 and Essential hypertension, benign 401.1 [facility] [address] [id number] [place] [address]- 5271 14 May, 2014 [facility] [address] [id number] [place] [address]- 3056 May, [facility] [address] [id number] [place] [address]- 4781 Apr, [facility] [address] [id number], [place] [address]- 3206 Apr, [facility] [id number] [place] [address]- 7557 Apr, [facility] [address] [facility] [id number] [address]- 4575 Apr, [facility] [address] [facility] [id number] [place] [address]- 2238 Mar, [facility] [id number], [place] [address]- 2831 Mar, [facility] [place] [facility] [address] [id number], [place] [address]- 5944 Feb, [facility] [place] [facility] [address] [facility] [id number], [place] [address]- 1181 Feb, [facility] [place] [facility] [address] [facility] [id number] [place] [address]- 5234 Feb, [facility] [place] [facility] [address] [facility] [id number]- 4634 Feb, [facility] [place] [facility] [address] [facility] [id number] [place] 0105 Feb, [facility] [place] [facility] [address] [facility] [id number] [place]- 4756 17 Jan, 2014 [facility] [place] [facility] [address] [id number] [place] [address]- 4903 17 Jan, 2014 [facility] [place] [facility] [address] [id number] [place] [address]- 1288 Jan, [facility] [place] [facility] [address] [id number] [place] [address]- 1122 Jan, [facility] [place] [facility] [address] [id number] [place] [address]- 5327 Dec, [facility] [place] [facility] [address] [id number] [place] [address]- 3962 Dec, [facility] [place] [facility] [address] [id number] [place] [address]- 0229 Nov, [facility] [place] [facility] [address] [id number] [place] [address]- 8632 Nov, [facility] [place] [facility] [address] [id number] [place] [address]- 6408 Oct, [facility] [place] [facility] [address] [id number] [place] [address]- 7002 Oct, [facility] [place] [facility] [address] [id number] [place] [address]- 0262 Oct, [facility] [place] [facility] [address] [id number] [place] [address]- 5042 Oct, [facility] [place] [facility] [address] [id number] [place] [address]- 3275 Sep, [facility] [place] [facility] [address] [id number] [place] [address]- 6025 Sep, [facility] [place] [facility] [address] [id number] [place] 8570 Jul, [facility] [place] [facility] [address] [id number] [place] 7264 Jul, [facility] [place] [facility] [address] [id number] [place] [address]- 3517 Jul, [facility] [place] [facility] [address] [id number] [place] [address]- 1464 Jul, [facility] [place] [facility] [address] [id number] [place] [address]- 5004 June, [facility] [place] [facility] [address] [id number] [place] [address]- 9088 June, [facility] [place] [facility] [address] [id number] [place] [address]- 7633 June, [facility] [place] [facility] [address] [id number] [place] [address]- 4022 June, [facility] [place] [facility] [address] [id number] [place] [address]- 8338 Mar, [facility] [place] [facility] [address] [id number] [place] [address]- 6087 Mar, [facility] [place] [facility] [address] [id number] [place] [address]- 1997 Mar, [facility] [place] [facility] [address] [id number] [place] [address]- 6452 Mar, [facility] [place] [facility] [address] [id number] [place] [address]- 6190 Mar, [facility] [place] [facility] [address] [id number] [place] [address]- 3705 Feb, [facility] [place] [facility] [address] [id number] [place] [address]- 7322 Feb, [facility] [place] [facility] [address] [id number] [place] [address]- 4735 Feb, [facility] [place] [facility] [address] [id number] [place] [address]- 8765 Feb, [facility] [place] [facility] [address] [id number] [place] [address]- 5794 Feb, [facility] [place] [facility] [address] [id number] [place] [address]- 5845 Feb, [facility] [place] [facility] [address] [id number] [place] [address]- 4591 Feb, [facility] [place] [facility] [address] [id number] [place] [address]- 9052 Feb, [facility] [place] [facility] [address] [id number] [place] [address]- 6643 Feb, [facility] [place] [facility] [address] [id number] [place] [address]- 9992 Feb, [facility] [place] [facility] [address] [id number] [place] [address]- 2423 Nov, [facility] [place] [facility] [address] [id number] [place] [address]- 0580 Nov, [facility] [place] [facility] [address] [id number] [place] [address]- 7696 Nov, [facility] [place] [facility] [address] [id number] [place] [address]- 0021 Nov, [facility] [place] [facility] [address] [id number] [place] [address]- 5690 Nov, [facility] [place] [facility] [address] [id number] [place] [address]- 4786 Nov, [facility] [place] [facility] [address] [id number] [place] [address]- 0952 Aug, [facility] [place] [facility] [address] [id number] [place] [address]- 2338 Aug, [facility] [place] [facility] [address] [id number] [place] [address]- 9552 Aug, [facility] [place] [facility] [address] [id number] [place] [address]- 1430 Aug, [facility] [place] [facility] [address] [id number] [place] [address]- 2656 08 May, 2012 [facility] [address] [id number] [place] [address] 18 Apr, 2012 [facility] [place] [facility] [address] [id number] [place] [address] 11 Apr, 2012 [facility] [address] [id number] [place] [address] 17 Jan, 2012 [facility] [place] [facility] [address] [id number] [place] [address] 17 Jan, 2012 [facility] [address] [id number] [place] [address] 17 Jan, 2012 [facility] [place] [facility] [address] [id number] [place] [address] 17 Jan, 2012 [facility] [place] [facility] [address] [id number] [place] [address] 17 Jan, 2012 [facility] [address] [id number] [place] [address] 17 Jan, 2012 [facility] [place] [facility] [address] [id number] [place] [address] 17 Jan, 2012 [facility] [place] [facility] [address] [id number] [place] 17 Jan, 2012 [facility] [place] [facility] [address] [id number] [place] [address] 12 Jan, 2012 [facility] [place] [facility] [address] [id number] [place] [address] 11 Jan, 2012 [facility] [place] [facility] [address] [id number] [place] [address]- [address] 11 Jan, 2012 [facility] [place] [facility] [address] [id number] [place] [address] 10 Jan, 2012 [facility] [place] [facility] [address] [id number] [place] [address] Jan, [facility] [place] [facility] [address] [id number] [place] [address] Dec, [facility] [place] [facility] [address] [id number] [place] [address] Dec, [facility] [place] [facility] [address] [id number] [place] [address] Dec, [facility] [place] [facility] [address] [id number] [place] [address]- [address] Sep, [facility] [place] [facility] [address] [id number] [place] [address]- [address] Sep, [facility] [place] [facility] [address] [id number] [place] [address]- [address] Sep, [facility] [place] [facility] [address] [id number] [place] [address] Aug, [facility] [place] [facility] [address] [id number] [place] [address] Aug, [facility] [place] [facility] [address] [id number] [place] [address] Aug, [facility] [place] [facility] [address] [id number] [place] [address] June, [facility] [place] [facility] [address] [id number] [place] [address] Apr, [facility] [place] [facility] [address] [id number] [place] [address] Apr, [facility] [place] [facility] [address] [id number] [place] [address] Mar, [facility] [place] [facility] [address] [id number] [place] [address] Feb, [facility] [place] [facility] [address] [id number] [place] [address] Feb, [facility] [place] [facility] [address] [id number] [place] [address] 22 Jan, 2011 [facility] [address] [id number] [place] [address] Jan, [facility] [address] [id number] [place] [address] Dec, [facility] [address] [facility] [id number] [place] [address] Dec, [facility] [address] [id number] [place] [address] 02 Dec, 2010 [facility] [address] [address] [id number] [place] [address] Nov, [facility] [address] [facility] [id number] [place] [address] 15 Sep, 2010 [facility] [address] [facility] [id number] [place] [address] 15 Apr, 2010 [facility] [address] [facility] [id number] [place] [address] 16 Mar, 2010 [facility] [address] [facility] [id number] [place] [address] Jan, [facility] [address] [facility] [id number] [place] [address] 17 Dec, 2009 [facility] [address] [facility] [id number] [place] [address] Nov, [facility] [address] [facility] [id number] [address] Sep, [facility] [address] [facility] [id number] [place] [address] 16 Jul, 2009 [facility] [address] [facility] [id number] [place] [address] 14 Feb, 2009 [facility] [address] [facility] [id number], [place] [address] Jan, IMMUNIZATIONS No Known Immunizations SOCIAL HISTORY Never Assessed REASON FOR VISIT Medication question PLAN OF CARE VITAL SIGNS MEDICATIONS Unknown Medications RESULTS No Results PROCEDURES No Known procedures INSTRUCTIONS MEDICATIONS ADMINISTERED No Known Medications MEDICAL (GENERAL) HISTORY Type Description Date Medical History spinal compression fracture Medical History cardiovascular disease Medical History stent placed 03-07-15 Surgical History cardiac stent 03-07-15 Surgical History Cardiac stent 11/2015 Hospitalization History [facility] with stent placement 03-06-15 Hospitalization History Cardiac Stent Collapsed/Heart attack 11/2015
--- OUTSIDE RECORDS SUMMARY | 2018-01-15 21:05 | XMS REPORT ---
Author Author ROB RAMIREZ [facility] Address [address] [place] [address] Care Team Providers Care [place] Worker Name Role Phone ROB RAMIREZ Unavailable PROBLEMS Type Condition ICD9-CM Code [id number] Code Onset Dates Condition Status SNOMED Code Problem Erectile dysfunction due to arterial insufficiency N52.01 Active 366508262 Problem Recurrent right knee instability M23.51 Active 757722756 Problem Other chronic pain G89.29 Active 45950356 Problem Lumbar radiculopathy, chronic M54.16 Active 180306583 Problem Right leg weakness R29.898 Active [id number] Problem Mixed hyperlipidemia E78.2 Active 035052510 Problem Morbid obesity E66.01 Active 038858326 Problem Coronary artery disease involving big lagoon coronary artery 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 Active [id number] Problem Morbid (severe) obesity due to excess calories E66.01 Active 656384080 Problem Cervical spinal stenosis M48.02 Active 39679334 Problem Foot pain, left M79.672 Active 44281487 Problem HTN (hypertension) I10 Active 46727434 Problem Cardiac disease I51.9 Active 80900551 Problem Ingrowing nail L60.0 Active 647516714 Problem 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 Active 659720919 Problem Obesity E66.9 Active 535936569 Problem Polyneuropathy associated with underlying disease G63 Active 520623312 ALLERGIES No Information ENCOUNTERS Encounter Location Date Diagnosis [facility] [address] [id number] [address] Nov, Cardiac disease I51.9 and HTN (hypertension) I10 [facility] [address] [id number] [address] Nov, Lumbar radiculopathy, chronic M54.16 [facility] [id number] [place] [address] 00914- 5538 Nov, Cervical spinal stenosis M48.02 [facility] [id number] [place] [address] 45206- 2302 Nov, Lumbar radiculopathy, chronic M54.16 [facility] [id number] [place] [address] 59719- 3217 27 Oct, 2017 Lumbar radiculopathy, chronic M54.16 [facility] [id number] [place] [address] 48454- 0702 24 Oct, 2017 Cervical spinal stenosis M48.02 [facility] [id number] [place] [address] 43180- 6029 10 Oct, 2017 Lumbar radiculopathy, chronic M54.16 [facility] [id number] [place] [address] 74585- 6347 Sep, Cervical spinal stenosis M48.02 [facility] [id number] [place] [address] 80918- 9939 Sep, Cervical spinal stenosis M48.02 [facility] [id number] [place] [address] 12241- 4464 Sep, Lumbar radiculopathy, chronic M54.16 [facility] [id number] [place] [address] 22232- 9518 Sep, Lumbar radiculopathy, chronic M54.16 and BMI 50.0-59.9, adult Z68.43 [facility] [id number] [place] [address] 94781- 7669 Aug, Cervical spinal stenosis M48.02 [facility] [id number] [place] [address] 02215- 5059 Aug, [facility] [id number] [place] [address] 43359- 7796 Jul, Cervical spinal stenosis M48.02 [facility] [id number] [place] [address] 94164- 0751 Jul, Medicare annual wellness visit, initial Z00.00 ; Morbid ( severe) obesity due to excess calories E66.01 ; Coronary artery disease involving big lagoon coronary artery 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 ; 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 ; Polyneuropathy associated with underlying disease G63 ; HTN (hypertension) I10 ; Mixed hyperlipidemia E78.2 ; BMI 50.0-59.9, adult Z68.43 and Encounter for immunization Z23 [place] [address] 86711- 5431 04 Jul, 2017 Cervical spinal stenosis M48.02 ; HTN (hypertension) I10 ; Coronary artery disease involving big lagoon coronary artery 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 and Right leg weakness R29.898 [place] [address] 99103- 7757 June, Cervical spinal stenosis M48.02 [place] [address] 25800- 9047 June, Cervical spinal stenosis M48.02 [place] [address] 14561- 4542 May, Cervical spinal stenosis M48.02 [place] [address] 95901- 9610 Apr, Cervical spinal stenosis M48.02 [facility] [id number] [place] [address] 69343 -3205 14 Mar, 2017 Neck pain on right side M54.2 and BMI 50.0-59.9, adult Z68.43 [place] [address] 43065- 3566 06 Mar, 2017 Cervical spinal stenosis M48.02 [facility] [address] 48848- 6626 Feb, Cervical spinal stenosis M48.02 [place] [address] 28751- 1475 Feb, [facility] [id number] [place] [address] 92708- 9775 09 Feb, 2017 Morbid (severe) obesity due to excess calories E66.01 and Coronary artery disease involving big lagoon coronary artery 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 [place] [id number] [place] [address] 48521- 1452 Feb, Mixed hyperlipidemia E78.2 and HTN (hypertension) I10 [place] [id number] [place] [address] 90180- 8131 Feb, Cervical spinal stenosis M48.02 ; HTN (hypertension) I10 ; Mixed hyperlipidemia E78.2 ; Recurrent right knee instability M23.51 and Morbid obesity E66.01 [place] [id number] [place] [address] 86945- 4685 13 Jan, 2017 Other chronic pain G89.29 [place] [id number] [place] [address] 82279- 3311 Dec, Other chronic pain G89.29 [place] [id number] [place] [address] 97829- 5683 Nov, Other chronic pain G89.29 [place] [id number] [place] [address] 73542- 0244 Oct, Other chronic pain G89.29 [place] [id number] [place] [address] 89855- 8777 Sep, Other chronic pain G89.29 [place] [id number] [place] [address] 04523- 8392 Sep, Other chronic pain G89.29 [place] [id number] [place] [address] 14056- 1176 Sep, Tenderness of left calf M79.662 and Cervical spinal stenosis M48.02 [facility] [id number] [place] [address] 55827- 3324 Aug, Other chronic pain G89.29 [facility] [address] [address]- 8179 Aug, Cervical radiculopathy M54.12 [facility] [address] [facility] [id number] [address] Aug, Cervical neuritis M54.12 [facility] [id number] [place] [address] 13943- 8332 Jul, Other chronic pain G89.29 [facility] [id number] [place] [address] [id number] Jul, Dental caries K02.9 [facility] [id number] [place] [address] 67381- 2618 Jul, Other chronic pain G89.29 [facility] [id number] [place] [address] 73873- 2938 June, Other chronic pain G89.29 [facility] [address] [place] [address] [id number] May, Dental examination Z01.20 [facility] [id number] [place] [address] 45881- 6958 May, Other chronic pain G89.29 [facility] [id number] [place] [address] 77951- 2352 Apr, Cervical spinal stenosis M48.02 and Drug-induced constipation K59.03 [facility] [address] [address]- 9160 Apr, [facility] [id number] [place] [address] 77749- 3073 Apr, Other chronic pain G89.29 [facility] [address]65[address] [address]- 2065 Apr, [facility] [id number] [place] [address] 81291- 7370 Mar, [facility] [address]65[address] [address]- 0546 Mar, Other chronic pain G89.29 [facility] [id number] [place] [address] 779201- 2499 Feb, Other chronic pain G89.29 [facility] [id number] [place] [address] 05298- 8195 Jan, Other chronic pain G89.29 [facility] [id number] [place] [address] 97889- 3939 Dec, [facility] [id number] [place] [address] 38884- 3979 Dec, Other chronic pain G89.29 [facility] [id number] [place] [address] 05474- 7680 Dec, Cervical spinal stenosis M48.02 ; Encounter for immunization Z23 ; Polyneuropathy associated with underlying disease G63 and Erectile dysfunction due to arterial insufficiency N52.01 [facility] [id number] [place] [address] 88726- 4765 Nov, [facility] [id number] [place] [address] 03601- 7660 Nov, [facility] [id number] [place] [address] 44062- 8738 Oct, [facility] [id number] [place] [address] 22934- 6152 Sep, [facility] [id number] [place] [address] 65098- 0272 Aug, [facility] [id number] [place] [address] 70703- 0586 Jul, Other chronic pain G89.29 [facility] [address] [address] Jul, Angioedema, initial encounter T78.3XXA and Dental abscess K04.7 [facility] [address] 75554- 3653 Jul, Leg pain M79.606 [address] [address] 76842- 5474 June, Other chronic pain G89.29 and Encounter for immunization Z23 [address] [address] 83322- 3836 June, [address] [address] 83509- 2936 May, Leg pain M79.606 [address] [address] 55266- 4311 Apr, Leg pain M79.606 and Cervical spinal stenosis M48.02 [address] [address] 88099- 4340 Apr, [place] [address] 53798- 7564 Mar, High ankle sprain of left lower extremity S93.432A [address] [address] 47903- 0843 Mar, [place] [address] 18362- 7026 Mar, Left ankle pain M25.572 [address] [address] 53686- 3886 Mar, [facility] [address] 92700- 3209 Mar, [address] [address] 14893- 9999 Mar, Leg pain M79.606 [address] [address] 05597- 7046 Mar, [facility] [id number] [place] [address] 33644- 3234 Mar, Ankle pain M25.579 ; Cardiac disease I51.9 ; Obesity E66.9 ; Leg pain M79.606 ; HTN (hypertension) I10 ; Ingrowing nail L60.0 ; 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 and Foot pain, left M79.672 [facility] [id number] [place] [address] 69903- 1634 Feb, [facility] [id number] [place] [address] 45248- 6980 Jan, [facility] [id number] [place] [address] 32977- 6799 Dec, Cervical spinal stenosis M48.02 and Hypertension I10 [facility] [id number] [place] [address] 84365- 5716 Dec, [facility] [id number] [place] [address] 03520- 6966 Dec, [facility] [id number] [place] [address] 05907- 7584 Dec, [facility] [id number] [place] [address] 41844- 8303 Nov, [facility] [id number] [place] [address] 19674- 2692 Nov, [facility] [id number] [place] [address] 72866- 7358 Oct, [facility] [id number] [place] [address] 29549- 1130 Oct, [facility] [id number] [place] [address] 52932- 3588 Oct, [facility] [id number] [place] [address] 55951- 7564 Oct, [facility] [address] [facility] [id number] [address]- 2701 Sep, [facility] [address] [address]- 1926 Sep, [facility] [address] [address]- 3824 Sep, Spinal stenosis in cervical region 723.0 ; Essential hypertension, benign 401.1 and Erectile dysfunction 607.84 [facility] [address] [facility] [id number] [address]- 7272 Sep, [facility] [id number] [address]- 2296 Aug, [facility] [address] [address]- 3504 Aug, [facility] [address] [address]- 7216 Jul, [facility] [address] [address]- 1161 June, [facility] [address] [address]- 5570 June, [facility] [address] [address]- 5765 June, [facility] [address] [address]- 7634 June, [facility] [id number] [address]- 8131 June, Spinal stenosis in cervical region 723.0 and Essential hypertension, benign 401.1 [facility] [id number] [address]- 9249 May, [facility] [id number] [address]- 2630 May, [facility] [address] [place] [address]- 8660 16 Apr, 2014 [facility] [place] [facility] [address] [id number] [place] [address]- 7805 16 Apr, 2014 [facility] [place] [facility] [address] [id number] [place] [address]- 6632 Apr, [facility] [place] [facility] [address] [id number] [place] [address]- 3298 Apr, [facility] [place] [facility] [address] [id number] [place] [address]- 7272 Mar, [facility] [place] [facility] [address] [id number] [place] [address]- 7405 Mar, [facility] [place] [facility] [address] [id number] [place] [address]- 0888 Feb, [facility] [place] [facility] [address] [id number] [place] [address]- 3781 Feb, [facility] [place] [facility] [address] [id number] [place] [address]- 9676 Feb, [facility] [place] [facility] [address] [id number] [place] [address]- 2220 Feb, [facility] [place] [facility] [address] [id number] [place] [address]- 8048 Feb, [facility] [place] [facility] [address] [id number] [place] [address]- 0582 Jan, [facility] [place] [facility] [address] [id number] [place] [address]- 6278 Jan, [facility] [place] [facility] [address] [id number] [place] [address]- 8187 Jan, [facility] [place] [facility] [address] [id number] [place] [address]- 4825 Jan, [facility] [place] [facility] [address] [id number] [place] 0248 Dec, [facility] [place] [facility] [address] [id number] [place] [address]- 3144 Dec, [facility] [place] [facility] [address] [id number] [place] [address]- 6344 Nov, [facility] [place] [facility] [address] [id number] [place] [address]- 9392 Nov, [facility] [place] [facility] [address] [id number] [place] [address]- 1583 Oct, [facility] [place] [facility] [address] [id number] [place] [address]- 7336 Oct, [facility] [place] [facility] [address] [id number] [place] [address]- 7582 Oct, [facility] [place] [facility] [address] [id number] [place] [address]- 5278 Oct, [facility] [place] [facility] [address] [id number] [place] [address]- 9885 Sep, [facility] [place] [facility] [address] [id number] [place] [address]- 9087 Sep, [facility] [place] [facility] [address] [id number] [place] [address]- 9423 Jul, [facility] [place] [facility] [address] [id number] [place] [address]- 1985 Jul, [facility] [place] [facility] [address] [id number] [place] [address]- 1422 Jul, [facility] [place] [facility] [address] [id number] [place] [address]- 1989 Jul, [facility] [place] [facility] [address] [id number] [place] [address]- 7689 June, [facility] [place] [facility] [address] [id number] [place] [address]- 9551 June, [facility] [place] [facility] [address] [id number] [place] [address]- 1494 June, [facility] [address] [id number] [place] [address]- 5106 June, [facility] [place] [facility] [address] [id number] [place] [address]- 9928 Mar, [facility] [place] [facility] [address] [id number] [place] [address]- 4642 Mar, [facility] [place] [facility] [address] [id number] [place] [address]- 4185 Mar, [facility] [place] [facility] [address] [id number] [place] [address]- 4537 Mar, [facility] [place] [facility] [address] [id number] [place] [address]- 0698 Mar, [facility] [address] [id number] [place] [address]- 0385 Feb, [facility] [place] [facility] [address] [id number] [place] [address]- 1280 Feb, [facility] [place] [facility] [address] [id number] [place] [address]- 3634 Feb, [facility] [place] [facility] [address] [id number] [place] [address]- 7338 Feb, [facility] [place] [facility] [address] [id number] [place] [address]- 5698 Feb, [facility] [place] [facility] [address] [id number] [address]- 0419 Feb, [facility] [place] [facility] [address] [id number] [place] [address]- 7420 Feb, [facility] [place] [facility] [address] [id number] [place] [address]- 7279 Feb, [facility] [place] [facility] [address] [id number] [place] [address]- 2685 Feb, [facility] [place] [facility] [address] [id number] [place] [address]- 2546 Feb, [facility] [place] [facility] [address] [id number] [place] [address]- 0311 Nov, [facility] [place] [facility] [address] [id number] [place] [address] 2546 Nov, [facility] [place] [facility] [address] [id number] [place] [address]- 6798 Nov, [facility] [place] [facility] [address] [id number] [place] [address]- 8500 Nov, [facility] [place] [facility] [address] [id number] [place] [address]- 4927 Nov, [facility] [place] [facility] [address] [id number] [place] [address]- 1692 Nov, [facility] [place] [facility] [address] [id number] [place] [address]- 6503 Aug, [facility] [place] [facility] [address] [id number] [place] [address]- 2005 Aug, [facility] [place] [facility] [address] [id number] [place] [address]- 0640 Aug, [facility] [place] [facility] [address] [id number] [place] [address]- 3222 Aug, [facility] [place] [facility] [address] [id number] [place] [address]- 6426 May, [facility] [place] [facility] [address] [id number] [place] [address]- 2541 Apr, [facility] [place] [facility] [address] [id number] [place] [address]- 2546 Apr, [facility] [place] [facility] [address] [id number] [place] [address]- 2546 Jan, [facility] [place] [facility] [address] [id number] [place] [address]- 8486 Jan, [facility] [place] [facility] [address] [id number] [place] [address] 17 Jan, 2012 [facility] [place] [facility] [address] [id number] [place] [address] 17 Jan, 2012 [facility] [place] [facility] [address] [id number] [place] [address] Jan, [facility] [place] [facility] [address] [id number] [place] [address] Jan, [facility] [place] [facility] [address] [id number] [place] [address] Jan, [facility] [place] [facility] [address] [id number] [place] [address] Jan, [facility] [place] [facility] [address] [id number] [place] [address] Jan, [facility] [place] [facility] [address] [id number] [place] [address] Jan, [facility] [place] [facility] [address] [id number] [place] [address] Jan, [facility] [place] [facility] [address] [id number] [place] [address] Jan, [facility] [place] [facility] [address] [id number] [place] [address] Jan, [facility] [place] [facility] [address] [id number] [address] Dec, [facility] [place] [facility] [address] [id number] [place] [address] Dec, [facility] [place] [facility] [address] [id number] [place] [address] Dec, [facility] [place] [facility] [address] [id number] [place] [address] Sep, [facility] [place] [facility] [address] [id number] [place] [address] Sep, [facility] [address] [id number] [place] [address] Sep, [facility] [place] [facility] [address] [id number] [place] [address] Aug, [facility] [place] [facility] [address] [id number] [place] [address] Aug, [facility] [place] [facility] [address] [id number] [place] [address] Aug, [facility] [place] [facility] [address] [id number] [place] [address] June, [facility] [place] [facility] [address] [id number] [place] [address] Apr, [facility] [place] [facility] [address] [id number] [place] [address] Apr, [facility] [place] [facility] [address] [id number] [place] [address] Mar, [facility] [place] [facility] [address] [id number] [place] [address] Feb, [facility] [place] [facility] [address] [id number] [place] [address] Feb, [facility] [place] [facility] [address] [id number] [place] [address] Jan, [facility] [place] [facility] [address] [id number] [place] [address] Jan, [facility] [place] [facility] [address] [id number] [place] [address] Dec, [facility] [place] [facility] [address] [id number] [place] [address] Dec, [facility] [place] [facility] [address] [id number] [place] [address] Dec, [facility] [address] [id number] [place] [address] Nov, [facility] [address] [id number] [place] [address] Sep, [facility] [address] [id number] [place] [address] Apr, [facility] [address] [id number] [place] [address] Mar, [facility] [address] [id number] [place] [address] Jan, [facility] [address] [facility] [id number] [place] [address] Dec, [facility] [address] [facility] [id number] [place] [address] Nov, [facility] [address] [facility] [id number] [place] [address] Sep, [facility] [address] [facility] [id number] [place] [address] Jul, [facility] [address] [facility] [id number] [place] [address] Feb, [facility] [address] [facility] [id number] [place] [address] Jan, IMMUNIZATIONS No Known Immunizations SOCIAL HISTORY Never Assessed REASON FOR VISIT Referral PLAN OF CARE VITAL SIGNS MEDICATIONS Unknown Medications RESULTS No Results PROCEDURES No Known procedures INSTRUCTIONS MEDICATIONS ADMINISTERED No Known Medications MEDICAL (GENERAL) HISTORY Type Description Date Medical History spinal compression fracture Medical History cardiovascular disease Medical History stent placed 03-07-15 Surgical History cardiac stent 03-07-15 Surgical History Cardiac stent 11/2015 Hospitalization History [facility] with stent placement 03-06-15 Hospitalization History Cardiac Stent Collapsed/Heart attack 11/2015
--- OUTSIDE RECORDS SUMMARY | 2018-01-15 21:05 | XMS REPORT ---
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 Name Role Phone ROB RAMIREZ Unavailable PROBLEMS Type Condition ICD9-CM Code QWB87-AL Code Onset Dates Condition Status SNOMED Code Problem Erectile dysfunction due to arterial insufficiency N52.01 Active 250738402 Problem Recurrent right knee instability M23.51 Active 265974992 Problem Other chronic pain G89.29 Active 02313941 Problem Lumbar radiculopathy, chronic M54.16 Active 480452363 Problem Right leg weakness R29.898 Active [id number] Problem Mixed hyperlipidemia E78.2 Active 221824113 Problem Morbid obesity E66.01 Active 082096090 Problem Coronary artery disease involving shosh[place]paiute coronary artery of shoshone[place]paiute 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 Active 3847758951230 Problem Morbid (severe) obesity due to excess calories E66.01 Active 637049816 Problem Cervical spinal stenosis M48.02 Active 35336075 Problem Foot pain, left M79.672 Active 02439265 Problem HTN (hypertension) I10 Active 75233142 Problem Cardiac disease I51.9 Active 02046464 Problem Ingrowing nail L60.0 Active 938998434 Problem 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 Active 038509967 Problem Obesity E66.9 Active 886577586 Problem Polyneuropathy associated with underlying disease G63 Active 357470529 ALLERGIES No Information ENCOUNTERS Encounter Location Date Diagnosis [facility] [id number] [address] Nov, Cardiac disease I51.9 and HTN (hypertension) I10 [facility] [id number] [address] Nov, Lumbar radiculopathy, chronic M54.16 [facility] [id number] [place] [address] 73767- 8888 Nov, Cervical spinal stenosis M48.02 [facility] [id number] [place] [address] 26566- 6562 Nov, Lumbar radiculopathy, chronic M54.16 [facility] [id number] [place] [address] 46545- 6544 27 Oct, 2017 Lumbar radiculopathy, chronic M54.16 [facility] [id number] [place] [address] 29488- 2384 24 Oct, 2017 Cervical spinal stenosis M48.02 [facility] [id number] [place] [address] 42952- 0737 10 Oct, 2017 Lumbar radiculopathy, chronic M54.16 [facility] [id number] [place] [address] 60239- 8566 Sep, Cervical spinal stenosis M48.02 [facility] [id number] [place] [address] 44307- 6500 Sep, Cervical spinal stenosis M48.02 [facility] [id number] [place] [address] 52410- 6038 Sep, Lumbar radiculopathy, chronic M54.16 [facility] [id number] [place] [address] 47215- 2352 Sep, Lumbar radiculopathy, chronic M54.16 and BMI 50.0-59.9, adult Z68.43 [facility] [id number] [place] [address] 70415- 9014 Aug, Cervical spinal stenosis M48.02 [facility] [id number] [place] [address] 66859- 4420 Aug, [facility] [id number] [place] [address] 75109- 0900 Jul, Cervical spinal stenosis M48.02 [facility] [id number] [place] [address] 67178- 0258 Jul, Medicare annual wellness visit, initial Z00.00 ; Morbid ( severe) obesity due to excess calories E66.01 ; Coronary artery disease involving sh[place] coronary artery of shosh[place]pai[place] 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 ; 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 ; Polyneuropathy associated with underlying disease G63 ; HTN (hypertension) I10 ; Mixed hyperlipidemia E78.2 ; BMI 50.0-59.9, adult Z68.43 and Encounter for immunization Z23 [place] [address] [address]04- 8088 04 Jul, 2017 Cervical spinal stenosis M48.02 ; HTN (hypertension) I10 ; Coronary artery disease involving sh[place]pai[place] coronary artery of shoshone[place]pai[place] 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 and Right leg weakness R29.898 [place] [address] 65974- 1581 June, Cervical spinal stenosis M48.02 [place] [address] 18455- 0301 June, Cervical spinal stenosis M48.02 [place] [address] 57849- 5959 May, Cervical spinal stenosis M48.02 [place] [address] 64623- 2183 Apr, Cervical spinal stenosis M48.02 [facility] [id number] [place] [address] 08308 -5001 14 Mar, 2017 Neck pain on right side M54.2 and BMI 50.0-59.9, adult Z68.43 [place] [address] 84382- 7366 06 Mar, 2017 Cervical spinal stenosis M48.02 [facility] [address] 11561- 9990 Feb, Cervical spinal stenosis M48.02 [place] [address] 05388- 1329 Feb, [facility] [id number] [place] [address] 62669- 2778 09 Feb, 2017 Morbid (severe) obesity due to excess calories E66.01 and Coronary artery disease involving shosh[place]pai[place] coronary artery of shosh[place]paiute 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 [place] [id number] [place] [address] 72899- 4032 Feb, Mixed hyperlipidemia E78.2 and HTN (hypertension) I10 [place] [id number] [place] [address] 99944- 6059 Feb, Cervical spinal stenosis M48.02 ; HTN (hypertension) I10 ; Mixed hyperlipidemia E78.2 ; Recurrent right knee instability M23.51 and Morbid obesity E66.01 [place] [id number] [place] [address] 73278- 1588 13 Jan, 2017 Other chronic pain G89.29 [place] [id number] [place] [address] 20416- 1899 Dec, Other chronic pain G89.29 [place] [id number] [place] [address] 68339- 3224 Nov, Other chronic pain G89.29 [place] [id number] [place] [address] 11842- 6129 Oct, Other chronic pain G89.29 [place] [id number] [place] [address] 11848- 2112 Sep, Other chronic pain G89.29 [place] [id number] [place] [address] 32874- 0534 Sep, Other chronic pain G89.29 [place] [id number] [place] [address] 79545- 1044 Sep, Tenderness of left calf M79.662 and Cervical spinal stenosis M48.02 [facility] [id number] [place] [address] 75482- 8122 Aug, Other chronic pain G89.29 [facility] [address] [address] 0930 Aug, Cervical radiculopathy M54.12 [facility] [address] [id number] [address] Aug, Cervical neuritis M54.12 [facility] [id number] [place] [address] 77443- 9521 Jul, Other chronic pain G89.29 [facility] [address] [place] [address] [id number] Jul, Dental caries K02.9 [facility] [id number] [place] [address] 92951- 3603 Jul, Other chronic pain G89.29 [facility] [id number] [place] [address] 42191- 1201 June, Other chronic pain G89.29 [facility] [address] [place] [address] [id number] May, Dental examination Z01.20 [facility] [id number] [place] [address] 92348- 1295 May, Other chronic pain G89.29 [facility] [id number] [place] [address] 09272- 9867 Apr, Cervical spinal stenosis M48.02 and Drug-induced constipation K59.03 [facility] [address] [address]- 3866 Apr, [facility] [id number] [place] [address] 15040- 6739 Apr, Other chronic pain G89.29 [facility] [address] [address]- 7694 Apr, [facility] [id number] [place] [address] 16314- 4938 Mar, [facility] [address] [address]- 6801 Mar, Other chronic pain G89.29 [facility] [id number] [place] [address] 833333- 1375 Feb, Other chronic pain G89.29 [facility] [id number] [place] [address] 36353- 5545 Jan, Other chronic pain G89.29 [facility] [id number] [place] [address] 03388- 8482 Dec, [facility] [id number] [place] [address] 86747- 8861 Dec, Other chronic pain G89.29 [facility] [id number] [place] [address] 99002- 6075 Dec, Cervical spinal stenosis M48.02 ; Encounter for immunization Z23 ; Polyneuropathy associated with underlying disease G63 and Erectile dysfunction due to arterial insufficiency N52.01 [facility] [id number] [place] [address] 46234- 5089 Nov, [facility] [id number] [place] [address] 00025- 9264 Nov, [facility] [address] [place] [address] 82769- 3033 Oct, [facility] [id number] [place] [address] 13095- 6443 Sep, [facility] [id number] [place] [address] 06150- 3068 Aug, [facility] [id number] [place] [address] 57522- 4623 Jul, Other chronic pain G89.29 [facility] [address] [address] Jul, Angioedema, initial encounter T78.3XXA and Dental abscess K04.7 [facility] [address] 66656- 2624 Jul, Leg pain M79.606 [place] [address] 52248- 5090 June, Other chronic pain G89.29 and Encounter for immunization Z23 [place] [address] 33132- 2186 June, [place] [address] 01657- 2760 May, Leg pain M79.606 [place] [address] 84128- 9003 Apr, Leg pain M79.606 and Cervical spinal stenosis M48.02 [place] [address] 32467- 7478 Apr, [place] [address] 58243- 3252 Mar, High ankle sprain of left lower extremity S93.432A [place] [address] 52424- 7641 Mar, [place] [address] 92153- 2315 Mar, Left ankle pain M25.572 [place] [address] 56851- 0056 Mar, [facility] [address] 54343- 5225 Mar, [place] [address] 44890- 0235 Mar, Leg pain M79.606 [place] [address] 65369- 4572 Mar, [facility] [id number] [place] [address] 57843- 7750 Mar, Ankle pain M25.579 ; Cardiac disease I51.9 ; Obesity E66.9 ; Leg pain M79.606 ; HTN (hypertension) I10 ; Ingrowing nail L60.0 ; 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 and Foot pain, left M79.672 [facility] [id number] [place] [address] 40636- 7281 Feb, [facility] [id number] [place] [address] 59766- 8690 Jan, [facility] [id number] [place] [address] 94911- 3569 Dec, Cervical spinal stenosis M48.02 and Hypertension I10 [facility] [id number] [place] [address] 38728- 0667 Dec, [facility] [id number] [place] [address] 45483- 5723 Dec, [facility] [id number] [place] [address] 12688- 3631 Dec, [facility] [id number] [place] [address] 41596- 7806 Nov, [facility] [id number] [place] [address] 52268- 4365 Nov, [facility] [id number] [place] [address] 37172- 9606 Oct, [facility] [id number] [place] [address] 87552- 3564 Oct, [facility] [id number] [place] [address] 36236- 9189 Oct, [facility] [id number] [place] [address] 60827- 6973 Oct, [facility] [address] [id number] [address]- 7135 Sep, [facility] [address] [address]- 2738 Sep, [facility] [address] [address]- 6759 Sep, Spinal stenosis in cervical region 723.0 ; Essential hypertension, benign 401.1 and Erectile dysfunction 607.84 [facility] [address] [id number] [address]- 3405 Sep, [facility] [id number] [address]- 8920 Aug, [facility] [address] [address]- 2517 Aug, [facility] [address] [address]- 2281 Jul, [facility] [address] [address]- 9279 June, [facility] [address] [address]- 1663 June, [facility] [address] [address]- 0819 June, [facility] [address] [address]- 1912 June, [facility] [id number] [address]- 2969 June, Spinal stenosis in cervical region 723.0 and Essential hypertension, benign 401.1 [facility] [id number] [address]- 9173 May, [facility] [id number] [address]- 2961 May, [facility] [address] [place] [address]- 4000 16 Apr, 2014 [facility] [place] [facility] [address] [id number] [place] [address]- 4811 16 Apr, 2014 [facility] [place] [facility] [address] [id number] [place] [address]- 0997 Apr, [facility] [place] [facility] [address] [id number] [place] [address]- 9080 Apr, [facility] [place] [facility] [address] [id number] [place] [address]- 9363 Mar, [facility] [place] [facility] [address] [id number] [place] [address]- 0970 Mar, [facility] [place] [facility] [address] [id number] [place] [address]- 7145 Feb, [facility] [place] [facility] [address] [id number] [place] [address]- 2392 Feb, [facility] [place] [facility] [address] [id number] [place] [address]- 3016 Feb, [facility] [place] [facility] [address] [id number] [place] [address]- 8562 Feb, [facility] [place] [facility] [address] [id number] [place] [address]- 6753 Feb, [facility] [place] [facility] [address] [id number] [place] [address]- 4974 Jan, [facility] [place] [facility] [address] [id number] [place] [address]- 3753 Jan, [facility] [place] [facility] [address] [id number] [place] [address]- 9548 Jan, [facility] [place] [facility] [address] [id number] [place] [address]- 9333 Jan, [facility] [place] [facility] [address] [id number] [place] 1431 Dec, [facility] [place] [facility] [address] [id number] [place] [address]- 1992 Dec, [facility] [place] [facility] [address] [id number] [place] [address]- 6475 Nov, [facility] [place] [facility] [address] [id number] [place] [address]- 9914 Nov, [facility] [place] [facility] [address] [id number] [place] [address]- 6456 Oct, [facility] [place] [facility] [address] [id number] [place] [address]- 0882 Oct, [facility] [place] [facility] [address] [id number] [place] [address]- 2251 Oct, [facility] [place] [facility] [address] [id number] [place] [address]- 5486 Oct, [facility] [place] [facility] [address] [id number] [place] [address]- 6675 Sep, [facility] [place] [facility] [address] [id number] [place] [address]- 2672 Sep, [facility] [place] [facility] [address] [id number] [place] [address]- 8050 Jul, [facility] [place] [facility] [address] [id number] [place] [address]- 0134 Jul, [facility] [place] [facility] [address] [id number] [place] [address]- 7076 Jul, [facility] [place] [facility] [address] [id number] [place] [address]- 3945 Jul, [facility] [place] [facility] [address] [id number] [place] [address]- 9426 June, [facility] [place] [facility] [address] [id number] [place] [address]- 8263 June, [facility] [place] [facility] [address] [id number] [place] [address]- 4171 June, [facility] [address] [id number] [place] [address]- 2725 June, [facility] [place] [facility] [address] [id number] [place] [address]- 8349 Mar, [facility] [place] [facility] [address] [id number] [place] [address]- 4152 Mar, [facility] [place] [facility] [address] [id number] [place] [address]- 8441 Mar, [facility] [place] [facility] [address] [id number] [place] [address]- 8537 Mar, [facility] [place] [facility] [address] [id number] [place] [address]- 8580 Mar, [facility] [address] [id number] [place] [address]- 4770 Feb, [facility] [place] [facility] [address] [id number] [place] [address]- 6822 Feb, [facility] [place] [facility] [address] [id number] [place] [address]- 2762 Feb, [facility] [place] [facility] [address] [id number] [place] [address]- 7694 Feb, [facility] [place] [facility] [address] [id number] [place] [address]- 9618 Feb, [facility] [place] [facility] [address] [id number] [address]- 1552 Feb, [facility] [place] [facility] [address] [id number] [place] [address]- 4145 Feb, [facility] [place] [facility] [address] [id number] [place] [address]- 8915 Feb, [facility] [place] [facility] [address] [id number] [place] [address]- 0222 Feb, [facility] [place] [facility] [address] [id number] [place] [address]- 2546 Feb, [facility] [place] [facility] [address] [id number] [place] [address]- 9389 Nov, [facility] [place] [facility] [address] [id number] [place] [address] 2546 Nov, [facility] [place] [facility] [address] [id number] [place] [address]- 0044 Nov, [facility] [place] [facility] [address] [id number] [place] [address]- 8305 Nov, [facility] [place] [facility] [address] [id number] [place] [address]- 3570 Nov, [facility] [place] [facility] [address] [id number] [place] [address]- 6283 Nov, [facility] [place] [facility] [address] [id number] [place] [address]- 1536 Aug, [facility] [place] [facility] [address] [id number] [place] [address]- 2300 Aug, [facility] [place] [facility] [address] [id number] [place] [address]- 7727 Aug, [facility] [place] [facility] [address] [id number] [place] [address]- 8241 Aug, [facility] [place] [facility] [address] [id number] [place] [address]- 4876 May, [facility] [place] [facility] [address] [id number] [place] [address]- 2541 Apr, [facility] [place] [facility] [address] [id number] [place] [address]- 2546 Apr, [facility] [place] [facility] [address] [id number] [place] [address]- 2546 Jan, [facility] [place] [facility] [address] [id number] [place] [address]- 1211 Jan, [facility] [place] [facility] [address] [id number] [place] [address]- 8060 17 Jan, 2012 [facility] [place] [facility] [address] [id number] [place] [address]- 8286 17 Jan, 2012 [facility] [place] [facility] [address] [id number] [place] [address]- 6096 Jan, [facility] [place] [facility] [address] [id number] [place] [address]- 8939 Jan, [facility] [place] [facility] [address] [id number] [place] [address]- 5057 Jan, [facility] [place] [facility] [address] [id number] [place] [address] Jan, [facility] [place] [facility] [address] [id number] [place] [address] Jan, [facility] [place] [facility] [address] [id number] [place] [address] Jan, [facility] [place] [facility] [address] [id number] [place] [address] Jan, [facility] [place] [facility] [address] [id number] [place] [address] Jan, [facility] [place] [facility] [address] [id number] [place] [address] Jan, [facility] [place] [facility] [address] [id number] [address] Dec, [facility] [place] [facility] [address] [id number] [place] [address] Dec, [facility] [place] [facility] [address] [id number] [place] [address] Dec, [facility] [place] [facility] [address] [id number] [place] [address] Sep, [facility] [place] [facility] [address] [id number] [place] [address] Sep, [facility] [address] [id number] [place] [address] Sep, [facility] [place] [facility] [address] [id number] [place] [address] Aug, [facility] [place] [facility] [address] [id number] [place] [address] Aug, [facility] [place] [facility] [address] [id number] [place] [address] Aug, [facility] [place] [facility] [address] [id number] [place] [address] June, [facility] [place] [facility] [address] [id number] [place] [address] Apr, [facility] [place] [facility] [address] [id number] [place] [address] Apr, [facility] [place] [facility] [address] [id number] [place] [address] Mar, [facility] [place] [facility] [address] [id number] [place] [address] Feb, [facility] [place] [facility] [address] [id number] [place] [address] Feb, [facility] [place] [facility] [address] [id number] [place] [address] Jan, [facility] [place] [facility] [address] [id number] [place] [address] Jan, [facility] [place] [facility] [address] [id number] [place] [address] Dec, [facility] [place] [facility] [address] [id number] [place] [address] Dec, [facility] [place] [facility] [address] [id number] [place] [address] Dec, [facility] [address] [id number] [address] Nov, [facility] [address] [id number] [place] [address] Sep, [facility] [address] [id number] [place] [address] Apr, [facility] [address] [id number] [place] [address] Mar, [facility] [address] [id number] [place] [address] Jan, [facility] [address] [id number] [place] [address] Dec, [facility] [address] [id number] [place] [address] Nov, [facility] [address] [id number] [place] [address] Sep, [facility] [address] [id number] [place] [address] Jul, [facility] [address] [id number] [place] [address] Feb, [facility] [address] [id number] [address] Jan, IMMUNIZATIONS No Known Immunizations SOCIAL HISTORY Never Assessed REASON FOR VISIT Controlled Med Refill 12/08 PLAN OF CARE VITAL SIGNS MEDICATIONS Medication Instructions Dosage Frequency Start Date End Date Duration Status Morphine Sulfate ER 15 mg Orally every 12 hrs 1 tablet 12h 25 Nov, 2017 14 days Active RESULTS No Results PROCEDURES No Known procedures INSTRUCTIONS MEDICATIONS ADMINISTERED No Known Medications MEDICAL (GENERAL) HISTORY Type Description Date Medical History spinal compression fracture Medical History cardiovascular disease Medical History stent placed 03-07-15 Surgical History cardiac stent 03-07-15 Surgical History Cardiac stent 11/[address] with stent placement 03-06-15 Hospitalization History Cardiac Stent Collapsed/Heart attack 11/2015
--- OUTSIDE RECORDS SUMMARY | 2018-01-15 21:06 | XMS REPORT ---
Author Author ROB RAMIREZ [facility] Address [address] [place] [address] Care Team Providers Care Tobacco Stripper Hand Name Role Phone ROB RAMIREZ Unavailable PROBLEMS Type Condition ICD9-CM Code SGT12-ZB Code Onset Dates Condition Status SNOMED Code Problem Erectile dysfunction due to arterial insufficiency N52.01 Active 055503010 Problem Recurrent right knee instability M23.51 Active 983504190 Problem Other chronic pain G89.29 Active 70588575 Problem Lumbar radiculopathy, chronic M54.16 Active 905507874 Problem Right leg weakness R29.898 Active [id number] Problem Mixed hyperlipidemia E78.2 Active 741316050 Problem Morbid obesity E66.01 Active 679782482 Problem Coronary artery 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 Active [id number] Problem Morbid (severe) obesity due to excess calories E66.01 Active 063782554 Problem Cervical spinal stenosis M48.02 Active 65978039 Problem Foot pain, left M79.672 Active 18692950 Problem HTN (hypertension) I10 Active 40368722 Problem Cardiac disease I51.9 Active 33243226 Problem Ingrowing nail L60.0 Active 869579722 Problem 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 Active 383581968 Problem Obesity E66.9 Active 446807189 Problem Polyneuropathy associated with underlying disease G63 Active 588795549 ALLERGIES No Information ENCOUNTERS Encounter Location Date Diagnosis [facility] [address], [place] [address] Nov, Lumbar radiculopathy, chronic M54.16 [facility] [address], [place] [address] Oct, Lumbar radiculopathy, chronic M54.16 [facility] [id number] [place] [address] 63473- 2812 24 Oct, 2017 Cervical spinal stenosis M48.02 [facility] [id number] [place] [address] 04454- 4339 10 Oct, 2017 Lumbar radiculopathy, chronic M54.16 [facility] [id number] [place] [address] 19893- 0656 Sep, Cervical spinal stenosis M48.02 [facility] [id number] [place] [address] 47592- 4359 Sep, Cervical spinal stenosis M48.02 [facility] [id number] [place] [address] 57393- 7396 Sep, Lumbar radiculopathy, chronic M54.16 [facility] [id number] [place] [address] 04680- 7459 Sep, Lumbar radiculopathy, chronic M54.16 [facility] [id number] [place] [address] 15599- 1834 Aug, Cervical spinal stenosis M48.02 [facility] [id number] [place] [address] 24506- 1411 Aug, [facility] [id number] [place] [address] 48917- 2509 Jul, Cervical spinal stenosis M48.02 [facility] [id number] [place] [address] 47096- 5390 05 Jul, 2017 Medicare annual wellness visit, initial Z00.00 ; Morbid ( severe) obesity due to excess calories E66.01 ; Coronary artery 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 ; 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 ; Polyneuropathy associated with underlying disease G63 ; HTN (hypertension) I10 ; Mixed hyperlipidemia E78.2 ; BMI 50.0-59.9, adult Z68.43 and Encounter for immunization Z23 [facility] [address] [place] [address] 09415- 3332 Jul, Cervical spinal stenosis M48.02 ; HTN (hypertension) I10 ; Coronary artery 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 and Right leg weakness R29.898 [facility] [id number] [place] [address] 83436- 5205 June, Cervical spinal stenosis M48.02 [facility] [id number] [place] [address] 33198- 7893 June, Cervical spinal stenosis M48.02 [facility] [address] [address]151- 0298 May, Cervical spinal stenosis M48.02 [facility] [address] 01262- 4990 Apr, Cervical spinal stenosis M48.02 [facility] [id number] [place] [address] 73171 -9859 14 Mar, 2017 Neck pain on right side M54.2 and BMI 50.0-59.9, adult Z68.43 [facility] [id number] [place] [address] 04824- 3448 06 Mar, 2017 Cervical spinal stenosis M48.02 [facility] [id number] [place] [address] 71384- 2202 Feb, Cervical spinal stenosis M48.02 [facility] [id number] [place] [address] 60463- 5061 Feb, [facility] [id number] [place] [address] 78678- 9245 Feb, Morbid (severe) obesity due to excess calories E66.01 and Coronary artery 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 [facility] [id number] [place] [address] 38061- 3554 Feb, Mixed hyperlipidemia E78.2 and HTN (hypertension) I10 [facility] [address] 80771- 0575 Feb, Cervical spinal stenosis M48.02 ; HTN (hypertension) I10 ; Mixed hyperlipidemia E78.2 ; Recurrent right knee instability M23.51 and Morbid obesity E66.01 [facility] [id number] [place] [address] 61534- 8923 Jan, Other chronic pain G89.29 [facility] [id number] [place] [address] 21040- 6000 Dec, Other chronic pain G89.29 [facility] [address] 28408- 5127 Nov, Other chronic pain G89.29 [facility] [id number] [place] [address] 10271- 1814 Oct, Other chronic pain G89.29 [facility] [id number] [place] [address] 25129- 2573 Sep, Other chronic pain G89.29 [facility] [id number] [place] [address] 12689- 0504 Sep, Other chronic pain G89.29 [facility] [address] 22887- 3329 Sep, Tenderness of left calf M79.662 and Cervical spinal stenosis M48.02 [facility] [id number] [place] [address] 63751- 0438 Aug, Other chronic pain G89.29 [facility] [id number] [place] [address] 60941- 8615 Aug, Cervical radiculopathy M54.12 [facility] [id number] [place] [address] 89451 -8936 Aug, Cervical neuritis M54.12 [facility] [id number] [place] [address] 87008- 2359 Jul, Other chronic pain G89.29 [facility] [address] [id number] 13 Jul, 2016 Dental caries K02.9 [facility] [id number] [place] [address] 966705- 9282 Jul, Other chronic pain G89.29 [facility] [address], [place] [address]- 8616 June, Other chronic pain G89.29 [facility] [address] [id number] 14 May, 2016 Dental examination Z01.20 [facility] [id number] [place] [address] 383066- 2656 May, Other chronic pain G89.29 [facility] [id number] [place] [address] 763166- 1548 Apr, Cervical spinal stenosis M48.02 and Drug-induced constipation K59.03 [facility] [address] [place] [address] 57366- 2347 Apr, [facility] [address] [place] [address] 74665- 6877 Apr, Other chronic pain G89.29 [facility] [address], [place] [address]- 7053 Apr, [facility] [address], [place] [address]- 1221 Mar, [facility] [address] [place] [address] 19915- 9236 Mar, Other chronic pain G89.29 [facility] [address] [place] [address] 553604- 8825 Feb, Other chronic pain G89.29 [facility] [address] 4616 Jan, Other chronic pain G89.29 [facility] [id number] [place] [address] 64777- 1983 Dec, [facility] [id number] [place] [address] 20668- 7910 Dec, Other chronic pain G89.29 [facility] [id number] [place] [address] 79279- 0396 Dec, Cervical spinal stenosis M48.02 ; Encounter for immunization Z23 ; Polyneuropathy associated with underlying disease G63 and Erectile dysfunction due to arterial insufficiency N52.01 [facility] [id number] [place] [address] 42415- 3964 Nov, [facility] [address] 60406- 2464 Nov, [facility] [id number] [place] [address] 57505- 7713 Oct, [facility] [address] 95927- 9158 Sep, [facility] [id number] [place] [address] 93475- 5183 Aug, [facility] [address] 65060- 3497 Jul, Other chronic pain G89.29 [facility] [id number] [place] [address] 78776 -6858 Jul, Angioedema, initial encounter T78.3XXA and Dental abscess K04.7 [facility] [id number] [place] [address] 75017- 5759 Jul, Leg pain M79.606 [facility] [address] 97224- 3321 June, Other chronic pain G89.29 and Encounter for immunization Z23 [facility] [id number] [place] [address] 22129- 6079 June, [facility] [id number] [place] [address] 86820- 5849 May, Leg pain M79.606 [facility] [id number] [place] [address] 83738- 9074 Apr, Leg pain M79.606 and Cervical spinal stenosis M48.02 [facility] [id number] [place] [address] 03779- 6552 Apr, [facility] [id number] [place] [address] 33996- 3344 Mar, High ankle sprain of left lower extremity S93.432A [facility] [id number] [place] [address] 36381- 2427 Mar, [facility] [id number] [place] [address] 33256- 4256 Mar, Left ankle pain M25.572 [facility] [id number] [place] [address] 66869- 3643 Mar, [facility] [id number] [place] [address] 13620- 9340 Mar, [facility] [id number] [place] [address] 97492- 7150 Mar, Leg pain M79.606 [facility] [id number] [place] [address] 18381- 8408 Mar, [facility] [id number] [place] [address] 77236- 1950 Mar, Ankle pain M25.579 ; Cardiac disease I51.9 ; Obesity E66.9 ; Leg pain M79.606 ; HTN (hypertension) I10 ; Ingrowing nail L60.0 ; 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 and Foot pain, left M79.672 [facility] [address] [place] [address] 75104- 0057 Feb, [facility] [address] [address]- 7289 Jan, [facility] [address] [place] [address] 25856- 5033 Dec, Cervical spinal stenosis M48.[address] [facility] [id number] [place] [address] 48104- 7730 Dec, [facility] [id number] [place] [address] 73091- 8078 Dec, [facility] [id number] [place] [address] 97488- 0542 Dec, [facility] [id number] [place] [address] 15242- 7740 Nov, [facility] [id number] [place] [address] 81170- 3004 Nov, [facility] [id number] [place] [address] 65685- 6968 Oct, [facility] [address] [place] [address] 80499- 5809 Oct, [facility] [id number] [place] [address] 21895- 8170 Oct, [facility] [address], [place] [address]- 7269 Oct, [facility] [address] [place] [address] 25909- 2208 Sep, [facility] [address], [place] [address]- 1827 Sep, [facility] [id number] [place] [address] 88204- 7699 Sep, Spinal stenosis in cervical region 723.0 ; Essential hypertension, benign 401.1 and Erectile dysfunction 607.84 [facility] [address], [place] [address]- 8274 Sep, [facility] [address] [id number] [place] [address]- 0296 Aug, [facility] [address] [id number] [place] [address]- 7869 Aug, [facility] [address] [facility] 2001 [id number] [place] [address]- 2631 Jul, [facility] [address] [facility] 2001 [id number] [place] [address]- 3353 June, [facility] [address] [facility] 2001 [id number] [place] 3136 June, [facility] [address] [facility] 2001 [id number] [place] [address]- 8845 June, [facility] [address] [place] [address]- 6412 June, [facility] [address], [place] [address]- 9113 June, Spinal stenosis in cervical region 723.0 and Essential hypertension, benign 401.1 [facility] [address] [place] [address]- 4990 May, [facility] [id number], [place] [address]- 4147 May, [facility] [address], [place] [address]- 5540 Apr, [facility] [address] [facility] [address] [id number], [place] [address]- 0373 Apr, [facility] [address] 0344 Apr, [facility] [address] [facility] 2001 [id number] [place] 3735 Apr, [facility] [id number], [place] [address]- 6313 Mar, [facility] [place] [facility] [address] [id number] [place] [address]- 0532 16 Mar, 2014 [facility] [place] [facility] [address] [id number] [place] [address]- 9017 Feb, [facility] [place] [facility] [address] [id number] [place] [address]- 9465 Feb, [facility] [place] [facility] [address] [id number] [place] [address]- 9957 Feb, [facility] [place] [facility] [address] [id number] [place] 9494 Feb, [facility] [place] [facility] [address] [id number] [place] [address]- 4841 Feb, [facility] [place] [facility] [address] [id number] [place] [address]- 9839 Jan, [facility] [place] [facility] [address] [id number] [place] [address]- 2824 Jan, [facility] [place] [facility] [address] [id number] [place] [address]- 4566 Jan, [facility] [place] [facility] [address] [id number], [place] [address]- 4841 Jan, [facility] [place] [facility] [address] [id number], [place] [address]- 9600 Dec, [facility] [place] [facility] [address] [id number], [place] [address]- 6313 Dec, [facility] [place] [facility] [address] [id number] [place] [address]- 2441 Nov, [facility] [place] [facility] [address] [id number], [place] [address]- 7325 Nov, [facility] [place] [facility] [address] [id number], [place] [address]- 2594 Oct, [facility] [place] [facility] [address] [id number], [place] [address]- 4750 Oct, [facility] [place] [facility] [address] [id number] [place] [address]- 2970 Oct, [facility] [place] [facility] [address] [id number] [place] [address]- 1795 Oct, [facility] [place] [facility] [address] [id number] [place] [address]- 7043 Sep, [facility] [place] [facility] [address] [id number] [place] [address]- 9016 Sep, [facility] [place] [facility] [address] [id number] [place] [address]- 9144 Jul, [facility] [place] [facility] [address] [id number] [place] [address]- 2965 Jul, [facility] [place] [facility] [id number] [place] [address]- 8169 Jul, [facility] [place] [facility] [address] [id number] [place] [address]- 7926 Jul, [facility] [place] [facility] [address] [facility] 2001 [id number] [place] [address]- 0996 June, [facility] [place] [facility] [address] [facility] [address] [id number] [place] [address]- 6544 June, [facility] [place] [facility] [address] [id number] [place] [address]- 9333 June, [facility] [place] [facility] [address] [facility] [address] [id number], [place] [address]- 8677 June, [facility] [place] [facility] [address] [id number] [place] [address]- 4871 Mar, [facility] [place] [facility] [address] [id number] [place] [address]- 9393 Mar, [facility] [place] [facility] [address] [facility] 2001 [id number] [place] [address]- 8676 Mar, [facility] [place] [facility] [address] [id number] [place] [address]- 1836 Mar, [facility] [place] [facility] [address] [id number] [place] [address]- 2536 Mar, [facility] [place] [facility] [address] [id number] [place] [address]- 2738 Feb, [facility] [place] [facility] [address] [id number] [place] [address]- 0043 Feb, [facility] [place] [facility] [address] [id number] [place] [address]- 9906 Feb, [facility] [place] [facility] [address] [id number] [place] [address]- 5609 Feb, [facility] [place] [facility] [address] [id number] [place] [address]- 3165 Feb, [facility] [place] [facility] [address] [id number] [place] [address]- 6545 Feb, [facility] [place] [facility] [address] [id number] [place] [address]- 7997 Feb, [facility] [place] [facility] [address] [id number] [place] [address]- 0339 Feb, [facility] [place] [facility] [address] [id number] [place] [address]- 5421 Feb, [facility] [place] [facility] [address] [id number], [place] [address]- 1386 Feb, [facility] [place] [facility] [address] [id number] [place] [address]- 6852 Nov, [facility] [place] [facility] [address] [id number] [place] [address]- 8348 Nov, [facility] [place] [facility] [address] [id number] [place] [address]- 2757 Nov, [facility] [place] [facility] [address] [id number] [place] [address]- 1466 Nov, [facility] [address] [id number] [place] [address]- 8736 Nov, [facility] [place] [facility] [address] [id number] [place] [address]- 2347 Nov, [facility] [place] [facility] [address] [id number] [place] [address]- 1311 Aug, [facility] [place] [facility] [address] [id number] [place] [address]- 3148 Aug, [facility] [place] [facility] [address] [id number] [place] [address]- 0872 Aug, [facility] [place] [facility] [address] [id number] [place] [address]- 0016 Aug, [facility] [address] [id number] [place] [address]- 2233 May, [facility] [place] [facility] [address] [id number] [place] [address]- 8916 Apr, [facility] [address] [id number] [place] [address]- 9285 Apr, [facility] [place] [facility] [address] [id number] [place] [address]- 1970 Jan, [facility] [place] [facility] [address] [id number] [place] [address]- 5917 Jan, [facility] [place] [facility] [address] [id number] [place] [address]- 5336 Jan, [facility] [place] [facility] [address] [id number] [place] [address]- 5146 Jan, [facility] [place] [facility] [address] [id number] [place] [address]- 8241 Jan, [facility] [place] [facility] [address] [id number] [place] [address]- 8302 Jan, [facility] [place] [facility] [address] [id number] [place] [address]- 8916 17 Jan, 2012 [facility] [address] [id number] [place] [address]- 5586 17 Jan, 2012 [facility] [place] [facility] [address] [id number] [place] [address] Jan, [facility] [address] [id number] [place] [address] Jan, [facility] [place] [facility] [address] [id number] [place] [address] Jan, [facility] [address] [id number] [place] [address] Jan, [facility] [address] [id number] [place] [address] Jan, [facility] [address] [id number] [place] [address] Dec, [facility] [address] [id number] [place] [address] Dec, [facility] [address] [id number] [place] [address] Dec, [facility] [address] [id number] [place] [address] Sep, [facility] [place] [address] [id number] [place] [address] Sep, [facility] [address] [id number] [place] [address] Sep, [facility] [facility] [address] [id number] [place] [address] Aug, [facility] [place] [facility] [address] [id number] [place] [address] Aug, [facility] [address] [id number] [place] [address] Aug, [facility] [place] [facility] [address] [id number] [place] [address] June, [facility] [facility] [address] [id number] [place] [address] Apr, [facility] [facility] [address] [id number] [place] [address] Apr, [facility] [facility] [address] [id number] [place] [address] Mar, [facility] [facility] [address] [id number] [place] [address] Feb, [facility] [facility] [address] [id number] [place] [address] Feb, [facility] [address] [id number] [place] [address] Jan, [facility] [place] [facility] [address] [id number] [place] [address] Jan, [facility] [facility] [address] [id number] [place] [address] Dec, [facility] [facility] [address] [id number] [place] [address] Dec, [facility] [address] [id number] [place] [address] Dec, [facility] [address] [id number], [place] [address] Nov, [facility] [address] [id number] [place] [address] 15 Sep, 2010 [facility] [address] [id number] [place] [address] 15 Apr, 2010 [facility] [facility] [address] [id number] [place] [address] 16 Mar, 2010 [facility] [address] [facility] [id number], [place] [address] 07 Jan, 2010 [facility] [address] [id number], [place] [address] 17 Dec, 2009 [facility] [address] [id number], [place] [address] Nov, [facility] [address] [id number], [place] [address] Sep, [facility] [id number], [place] [address] Jul, [facility] [id number], [place] [address] Feb, [facility] [address] [id number], [place] [address] Jan, IMMUNIZATIONS No Known Immunizations SOCIAL HISTORY Never Assessed REASON FOR VISIT Controlled Med Refill 11/24 PLAN OF CARE VITAL SIGNS MEDICATIONS Medication Instructions Dosage Frequency Start Date End Date Duration Status Morphine Sulfate ER 15 mg Orally every 12 hrs 1 tablet 12h 12 Nov, 2017 14 days Active RESULTS No Results PROCEDURES No Known procedures INSTRUCTIONS MEDICATIONS ADMINISTERED No Known Medications MEDICAL (GENERAL) HISTORY Type Description Date Medical History spinal compression fracture Medical History cardiovascular disease Medical History stent placed 03-07-15 Surgical History cardiac stent 03-07-15 Surgical History Cardiac stent 11/2015 Hospitalization History [place] with stent placement 03-06-15 Hospitalization History Cardiac Stent Collapsed/Heart attack 11/2015
--- OUTSIDE RECORDS SUMMARY | 2018-01-15 21:07 | XMS REPORT ---
Author Author ROB RAMIREZ [facility] Address [address] [place] [address] Care Team Providers Care Hand Filer Balance Wheel Name Role Phone ROB RAMIREZ Unavailable PROBLEMS ALLERGIES No Information ENCOUNTERS IMMUNIZATIONS No Known Immunizations SOCIAL HISTORY No smoking Hx information available REASON FOR VISIT PLAN OF CARE VITAL SIGNS MEDICATIONS RESULTS No Results PROCEDURES No Known procedures INSTRUCTIONS MEDICATIONS ADMINISTERED No Known Medications MEDICAL (GENERAL) HISTORY
--- OUTSIDE RECORDS SUMMARY | 2018-01-15 21:07 | XMS REPORT ---
Author Author ROB RAMIREZ Organization [facility] Address [address] [place] [address] Care Team Providers Care Cone Treater Name Role Phone ROB RAMIREZ Unavailable PROBLEMS Type Condition ICD9-CM Code BSL74-ZY Code Onset Dates Condition Status SNOMED Code Problem Erectile dysfunction due to arterial insufficiency N52.01 Active 927136214 Problem Recurrent right knee instability M23.51 Active 879317485 Problem Other chronic pain G89.29 Active 67048754 Problem Lumbar radiculopathy, chronic M54.16 Active 942903593 Problem Right leg weakness R29.898 Active [id number] Problem Mixed hyperlipidemia E78.2 Active 267323249 Problem Morbid obesity E66.01 Active 155948633 Problem 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 Active 0695150183981 Problem Morbid (severe) obesity due to excess calories E66.01 Active 569904845 Problem Cervical spinal stenosis M48.02 Active 34071701 Problem Foot pain, left M79.672 Active 70771655 Problem HTN (hypertension) I10 Active 60343983 Problem Cardiac disease I51.9 Active 89138666 Problem Ingrowing nail L60.0 Active 157311084 Problem 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 Active 794576682 Problem Obesity E66.9 Active 236800365 Problem Polyneuropathy associated with underlying disease G63 Active 156470327 ALLERGIES No Information ENCOUNTERS Encounter Location Date Diagnosis [facility] [id number] [address] Oct, Lumbar radiculopathy, chronic M54.16 [facility] [address] [address] 24 Oct, 2017 Cervical spinal stenosis M48.02 [facility] [id number] [address] Oct, Lumbar radiculopathy, chronic M54.16 [facility] [address] [address] Sep, Cervical spinal stenosis M48.02 [facility] [address] [address] Sep, Cervical spinal stenosis M48.02 [facility] [id number] [place] [address] 57198- 9599 Sep, Lumbar radiculopathy, chronic M54.16 [facility] [id number] [place] [address] 49333- 6427 Sep, Lumbar radiculopathy, chronic M54.16 [facility] [id number] [place] [address] 05773- 0788 Aug, Cervical spinal stenosis M48.02 [facility] [id number] [place] [address] 48705- 3728 Aug, [facility] [address] [address] Jul, Cervical spinal stenosis M48.02 [facility] [address] [address] Jul, Medicare annual wellness visit, initial Z00.00 ; Morbid ( severe) obesity due to excess calories E66.01 ; 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 ; 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 ; Polyneuropathy associated with underlying disease G63 ; HTN (hypertension) I10 ; Mixed hyperlipidemia E78.2 ; BMI 50.0-59.9, adult Z68.43 and Encounter for immunization Z23 [facility] [address] [address] Jul, Cervical spinal stenosis M48.02 ; HTN (hypertension) I10 ; 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 and Right leg weakness R29.898 [facility] [id number] [place] [address] 89728- 2191 June, Cervical spinal stenosis M48.02 [place] [id number] [place] [address] 18567- 8737 June, Cervical spinal stenosis M48.02 [facility] [id number] [place] [address] 56028- 7520 May, Cervical spinal stenosis M48.02 [facility] [id number] [place] [address] 62790- 2691 Apr, Cervical spinal stenosis M48.02 [facility] [id number] [place] [address] 53474 -7561 14 Mar, 2017 Neck pain on right side M54.2 and BMI 50.0-59.9, adult Z68.43 [place] [id number] [place] [address] 97461- 0578 06 Mar, 2017 Cervical spinal stenosis M48.02 [place] [id number] [place] [address] 24738- 4831 Feb, Cervical spinal stenosis M48.02 [place] [id number] [place] [address] 22421- 5341 Feb, [facility] [id number] [place] [address] 93461- 6954 Feb, Morbid (severe) obesity due to excess calories E66.01 and 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 [place] [id number] [place] [address] 36051- 0282 05 Feb, 2017 Mixed hyperlipidemia E78.2 and HTN (hypertension) I10 [place] [id number] [place] [address] 30483- 9052 Feb, Cervical spinal stenosis M48.02 ; HTN (hypertension) I10 ; Mixed hyperlipidemia E78.2 ; Recurrent right knee instability M23.51 and Morbid obesity E66.01 [facility] [id number] [place] [address] 45772- 9295 13 Jan, 2017 Other chronic pain G89.29 [facility] [id number] [place] [address] 23042- 6016 Dec, Other chronic pain G89.29 [facility] [id number] [place] [address] 12683- 9909 Nov, Other chronic pain G89.29 [facility] [id number] [place] [address] 90875- 2333 Oct, Other chronic pain G89.29 [facility] [address] 30200- 9766 Sep, Other chronic pain G89.29 [facility] [address] 59262- 2023 Sep, Other chronic pain G89.29 [facility] [id number] [place] [address] 22506- 8662 Sep, Tenderness of left calf M79.662 and Cervical spinal stenosis M48.02 [facility] [id number] [place] [address] 67329- 2540 Aug, Other chronic pain G89.29 [facility] [id number] [place] [address] 91927- 1174 Aug, Cervical radiculopathy M54.12 [facility] [id number] [place] [address] 75279 -1755 Aug, Cervical neuritis M54.12 [facility] [address] 97361- 4255 Jul, Other chronic pain G89.29 [facility] [id number] [place] [address] [id number] 13 Jul, 2016 Dental caries K02.9 [facility] [address] 26851- 0612 Jul, Other chronic pain G89.29 [facility] [address] [address] June, Other chronic pain G89.29 [facility] [id number] [id number] 14 May, 2016 Dental examination Z01.20 [facility] [id number] [place] [address] 48662- 0095 May, Other chronic pain G89.29 [facility] [id number] [place] [address] 14894- 3100 Apr, Cervical spinal stenosis M48.02 and Drug-induced constipation K59.03 [facility] [address] [address]- 1535 Apr, [facility] [id number] [place] [address] 37896- 1440 Apr, Other chronic pain G89.29 [facility] [address] [address]- 2680 Apr, [facility] [id number] [place] [address] 57958- 8743 Mar, [facility] [address] [address]- 9040 Mar, Other chronic pain G89.29 [facility] [address] [address] Feb, Other chronic pain G89.29 [facility] [address] [address] Jan, Other chronic pain G89.29 [facility] [address] [address] 30 Dec, 2015 [facility] [id number] [place] [address] 547116- 6420 Dec, Other chronic pain G89.29 [facility] [id number] [place] [address] 47824- 8942 Dec, Cervical spinal stenosis M48.02 ; Encounter for immunization Z23 ; Polyneuropathy associated with underlying disease G63 and Erectile dysfunction due to arterial insufficiency N52.01 [facility] [address] 14157- 1638 Nov, [facility] [address] 96583- 4341 Nov, [facility] [address] 57140- 8612 Oct, [place] [address] 82933- 0373 Sep, [place] [address] 78646- 9591 Aug, [facility] [address] 76694- 4047 Jul, Other chronic pain G89.29 [facility] [address] 87530 -2811 Jul, Angioedema, initial encounter T78.3XXA and Dental abscess K04.7 [facility] [id number] [place] [address] 21325- 7093 Jul, Leg pain M79.606 [facility] [address] 87480- 1304 June, Other chronic pain G89.29 and Encounter for immunization Z23 [facility] [address] 14258- 3740 June, [facility] [address] 62228- 3012 May, Leg pain M79.606 [facility] [address] 09138- 6319 Apr, Leg pain M79.606 and Cervical spinal stenosis M48.02 [facility] [id number] [place] [address] 04642- 9555 Apr, [facility] [id number] [place] [address] 80678- 7550 Mar, High ankle sprain of left lower extremity S93.432A [facility] [address] 47845- 7069 Mar, [facility] [id number] [place] [address] 71889- 9027 Mar, Left ankle pain M25.572 [facility] [id number] [place] [address] 47507- 7780 Mar, [facility] [address] 60628- 0369 Mar, [facility] [id number] [place] [address] 88677- 2433 Mar, Leg pain M79.606 [facility] [id number] [place] [address] 07252- 3631 Mar, [facility] [id number] [place] [address] 41243- 1460 Mar, Ankle pain M25.579 ; Cardiac disease I51.9 ; Obesity E66.9 ; Leg pain M79.606 ; HTN (hypertension) I10 ; Ingrowing nail L60.0 ; 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 and Foot pain, left M79.672 [facility] [id number] [place] [address] 64502- 3535 Feb, [facility] [id number] [place] [address] 30544- 9615 Jan, [facility] [address] 81445- 1105 Dec, Cervical spinal stenosis M48.02 and Hypertension I10 [facility] [id number] [address]- 2932 Dec, [facility] [id number] [address]- 7394 Dec, [facility] [id number] [place] [address] 11719- 6988 Dec, [facility] [id number] [place] [address] 46709- 7896 Nov, [facility] [id number] [place] [address] 34200- 3421 Nov, [facility] [id number] [place] [address] 35457- 8262 Oct, [facility] [id number] [place] [address] 36465- 4640 Oct, [facility] [id number] [place] [address] 61456- 3201 Oct, [facility] [id number] [place] [address] 56903- 1417 Oct, [facility] [id number] [address]- 9158 Sep, [facility] [id number] [place] [address] 34787- 1211 Sep, [facility] [id number] [place] [address] 96781- 4462 Sep, Spinal stenosis in cervical region 723.0 ; Essential hypertension, benign 401.1 and Erectile dysfunction 607.84 [facility] [address] [address]- 9988 Sep, [facility] [id number] [address]- 2746 Aug, [facility] [id number] [place] [address]- 7213 Aug, [facility] [address] [facility] [id number] [place] [address]- 5719 Jul, [facility] [id number] [place] [address]- 3458 June, [facility] [id number] 1430 June, [facility] [address] [facility] [id number] [place] [address]- 0516 June, [facility] [address] [place] [address]- 7678 June, [facility] [id number] [place] [address]- 9066 June, Spinal stenosis in cervical region 723.0 and Essential hypertension, benign 401.1 [facility] [id number] [place] [address]- 0857 May, [facility] [id number] [place] [address]- 5537 May, [facility] [address] [place] [address]- 5782 Apr, [facility] [id number] [address]- 2364 Apr, [facility] [address] [facility] [id number] [address]- 3036 Apr, [facility] [address] [facility] [id number] [place] [address]- 6666 Apr, [facility] [address] [facility] [id number] 9376 Mar, [facility] [id number] [place] [address]- 4541 Mar, [facility] [address] [id number] [place] [address]- 8769 Feb, [facility] [address] [id number] [place] [address]- 5856 Feb, [facility] [place] [facility] [address] [id number] [place] [address]- 3902 15 Feb, 2014 [facility] [address] [id number] [place] [address]- 5431 Feb, [facility] [place] [facility] [address] [id number] [place] [address]- 4879 Feb, [facility] [address] [id number] [place] 9433 Jan, [facility] [address] [id number] [place] [address]- 7655 Jan, [facility] [address] [id number] [place] [address]- 8608 Jan, [facility] [address] [id number] [place] [address]- 4162 Jan, [facility] [place] [facility] [address] [id number] [place] [address]- 3718 Dec, [facility] [address] [id number] [place] [address]- 8018 Dec, [facility] [place] [facility] [address] [id number] [place] [address]- 9194 Nov, [facility] [place] [facility] [address] [id number] [place] [address]- 4966 Nov, [facility] [place] [facility] [address] [id number] [place] [address]- 3153 Oct, [facility] [place] [facility] [address] [id number] [place] [address]- 3644 Oct, [facility] [place] [facility] [address] [id number] [place] 7689 Oct, [facility] [place] [facility] [address] [id number] [place] [address]- 5625 Oct, [facility] [place] [facility] [address] [id number] [place] [address]- 2443 Sep, [facility] [place] [facility] [address] [id number] [place] [address]- 3512 Sep, [facility] [place] [facility] [address] [id number] [place] [address]- 6686 Jul, [facility] [place] [facility] [address] [id number] [place] [address]- 9256 Jul, [facility] [place] [facility] [address] [id number] [place] [address]- 9981 Jul, [facility] [place] [facility] [address] [id number] [place] [address]- 1800 Jul, [facility] [place] [facility] [address] [id number] [place] [address]- 0277 June, [facility] [place] [facility] [address] [id number] [place] [address]- 7709 June, [facility] [place] [facility] [address] [id number] [place] [address]- 3358 June, [facility] [place] [facility] [address] [id number] [place] [address]- 7646 June, [facility] [place] [facility] [address] [id number] [place] [address]- 3274 Mar, [facility] [place] [facility] [address] [id number] [place] [address]- 0978 Mar, [facility] [place] [facility] [address] [id number] [place] [address]- 5543 Mar, [facility] [place] [facility] [address] [id number] [place] [address]- 6850 Mar, [facility] [place] [facility] [address] [id number] [place] [address]- 7749 Mar, [facility] [place] [facility] [address] [id number] [place] [address]- 9163 Feb, [facility] [place] [facility] [address] [id number] [place] [address]- 7759 Feb, [facility] [place] [facility] [address] [id number] [place] [address]- 9510 Feb, [facility] [place] [facility] [address] [id number] [place] [address]- 9207 Feb, [facility] [place] [facility] [address] [id number] [place] [address]- 7004 Feb, [facility] [place] [facility] [address] [id number] [place] [address]- 3654 Feb, [facility] [place] [facility] [address] [id number] [place] [address]- 6774 Feb, [facility] [place] [facility] [address] [id number] [place] [address]- 7814 Feb, [facility] [place] [facility] [address] [id number] [place] [address]- 6196 Feb, [facility] [place] [facility] [address] [id number] [place] [address]- 8532 Feb, [facility] [place] [facility] [address] [id number] [place] [address]- 1384 Nov, [facility] [place] [facility] [address] [id number] [place] [address]- 2383 Nov, [facility] [place] [facility] [address] [id number] [place] [address]- 9327 Nov, [facility] [place] [facility] [address] [id number] [place] [address]- 5504 Nov, [facility] [place] [facility] [address] [id number] [place] [address]- 7552 Nov, [facility] [place] [facility] [address] [id number] [place] [address] 2540 Nov, [facility] [address] [id number] [place] [address]- 2546 Aug, [facility] [address] [id number] [place] [address]- 2546 Aug, [facility] [address] [id number] [place] [address]- 2546 Aug, [facility] [address] [id number] [place] [address]- 2545 Aug, [facility] [address] [id number] [place] [address]- 2546 May, [facility] [address] [id number] [place] [address]- 2548 Apr, [facility] [address] [id number] [place] [address] Apr, [facility] [address] [id number] [place] [address] Jan, [facility] [address] [id number] [place] [address] Jan, [facility] [address] [id number] [place] [address] Jan, [facility] [address] [id number] [place] [address] Jan, [facility] [address] [id number] [place] [address] Jan, [facility] [place] [facility] [address] [id number] [place] [address] Jan, [facility] [address] [id number] [place] [address] Jan, [facility] [address] [id number] [place] [address] Jan, [facility] [place] [facility] [address] [id number] [place] [address] Jan, [facility] [place] [facility] [address] [id number] [place] [address] Jan, [facility] [place] [facility] [address] [id number] [place] [address] Jan, [facility] [place] [facility] [address] [id number] [place] [address] Jan, [facility] [place] [facility] [address] [id number] [place] [address] Jan, [facility] [place] [facility] [address] [id number] [place] [address] Dec, [facility] [place] [facility] [address] [id number] [place] [address] Dec, [facility] [place] [facility] [address] [id number] [place] [address] Dec, [facility] [place] [facility] [address] [id number] [place] [address] Sep, [facility] [place] [facility] [address] [id number] [place] [address] Sep, [facility] [place] [facility] [address] [id number] [place] [address] Sep, [facility] [place] [facility] [address] [id number] [place] [address] Aug, [facility] [place] [facility] [address] [id number] [place] [address] Aug, [facility] [place] [facility] [address] [id number] [place] [address] Aug, [facility] [place] [facility] [address] [id number] [place] [address] June, [facility] [place] [facility] [address] [id number] [place] [address] 28 Apr, 2011 [facility] [address] [id number] [place] [address] Apr, [facility] [place] [facility] [address] [id number] [place] [address] Mar, [facility] [address] [id number] [place] [address] Feb, [facility] [place] [facility] [address] [id number] [place] [address] Feb, [facility] [address] [id number] [place] [address] Jan, [facility] [place] [facility] [address] [id number] [place] [address] Jan, [facility] [address] [id number] [place] [address] Dec, [facility] [address] [id number] [place] [address] Dec, [facility] [place] [facility] [address] [id number] [place] [address] Dec, [facility] [address] [id number] [place] [address] Nov, [facility] [place] [facility] [address] [id number] [place] [address] 15 Sep, 2010 [facility] [place] [facility] [address] [id number] [place] [address] 15 Apr, 2010 [facility] [place] [facility] [address] [id number] [place] [address] 16 Mar, 2010 [facility] [place] [facility] [address] [address] [id number] [place] [address] Jan, [facility] [place] [facility] [address] [id number] [place] [address] Dec, [facility] [address] [facility] [id number] [address] Nov, [facility] [address] [facility] [id number] [place] [address] Sep, [facility] [address] [facility] [id number] [place] [address] Jul, [facility] [address] [id number] [address] Feb, [facility] [address] [facility] [id number] [place] [address] Jan, IMMUNIZATIONS No Known Immunizations SOCIAL HISTORY Never Assessed REASON FOR VISIT Controlled refill PLAN OF CARE VITAL SIGNS MEDICATIONS Medication Instructions Dosage Frequency Start Date End Date Duration Status Morphine Sulfate ER 15 mg Orally every 12 hrs 1 tablet 12h 28 Oct, 2017 13 days Active RESULTS No Results PROCEDURES No Known procedures INSTRUCTIONS MEDICATIONS ADMINISTERED No Known Medications MEDICAL (GENERAL) HISTORY Type Description Date Medical History spinal compression fracture Medical History cardiovascular disease Medical History stent placed 03-07-15 Surgical History cardiac stent 03-07-15 Surgical History Cardiac stent 11/2015 Hospitalization History [place] with stent placement 03-06-15 Hospitalization History Cardiac Stent Collapsed/Heart attack 11/2015
--- OUTSIDE RECORDS SUMMARY | 2018-01-15 21:08 | XMS REPORT ---
Author Author ROB RAMIREZ [facility] Address [address] [place] [address] Care Team Providers Care Support Architect Name Role Phone ROB RAMIREZ Unavailable PROBLEMS Type Condition ICD9-CM Code XDJ72-VQ Code Onset Dates Condition Status SNOMED Code Problem Erectile dysfunction due to arterial insufficiency N52.01 Active 051497923 Problem Recurrent right knee instability M23.51 Active 351571609 Problem Other chronic pain G89.29 Active 72712064 Problem Lumbar radiculopathy, chronic M54.16 Active 937985859 Problem Right leg weakness R29.898 Active [id number] Problem Mixed hyperlipidemia E78.2 Active 416697864 Problem Morbid obesity E66.01 Active 104361193 Problem Coronary artery disease involving [place] coronary artery of [place] 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 Active 7403899768425 Problem Morbid (severe) obesity due to excess calories E66.01 Active 137598604 Problem Cervical spinal stenosis M48.02 Active 02272718 Problem Foot pain, left M79.672 Active 72012871 Problem HTN (hypertension) I10 Active 18093912 Problem Cardiac disease I51.9 Active 64281692 Problem Ingrowing nail L60.0 Active 509064664 Problem 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 Active 579926450 Problem Obesity E66.9 Active 593626698 Problem Polyneuropathy associated with underlying disease G63 Active 644674678 ALLERGIES No Information ENCOUNTERS Encounter Location Date Diagnosis [facility] [id number] [address] Oct, Lumbar radiculopathy, chronic M54.16 [facility] [address], [place] [address] Sep, Cervical spinal stenosis M48.02 [facility] [id number], [place] [address] Sep, Cervical spinal stenosis M48.02 [place] [address], [place] [address] Sep, Lumbar radiculopathy, chronic M54.16 [facility] [id number] [place] [address] 38105- 0267 Sep, Lumbar radiculopathy, chronic M54.16 [place] [id number] [place] [address] 64052- 5338 Aug, Cervical spinal stenosis M48.02 [place] [id number] [place] [address] 71331- 7527 Aug, [place] [id number] [place] [address] 82525- 8617 Jul, Cervical spinal stenosis M48.02 [place] [id number] [place] [address] 84362- 4226 Jul, Medicare annual wellness visit, initial Z00.00 ; Morbid ( severe) obesity due to excess calories E66.01 ; Coronary artery disease involving [place] coronary artery of [place] 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 ; 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 ; Polyneuropathy associated with underlying disease G63 ; HTN (hypertension) I10 ; Mixed hyperlipidemia E78.2 ; BMI 50.0-59.9, adult Z68.43 and Encounter for immunization Z23 [place] [id number] [place] [address] 13447- 1161 Jul, Cervical spinal stenosis M48.02 ; HTN (hypertension) I10 ; Coronary artery disease involving [place] coronary artery of [place] 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 and Right leg weakness R29.898 [place] [id number] [place] [address] 61563- 6241 June, Cervical spinal stenosis M48.02 [place] [id number] [place] [address] 59696- 2965 June, Cervical spinal stenosis M48.02 [place] [id number] [place] [address] 24374- 4135 May, Cervical spinal stenosis M48.02 [place] [id number] [place] [address] 40513- 5622 Apr, Cervical spinal stenosis M48.02 [facility] [id number] [place] [address] 08157 -0165 14 Mar, 2017 Neck pain on right side M54.2 and BMI 50.0-59.9, adult Z68.43 [place] [id number] [place] [address] 87855- 2976 06 Mar, 2017 Cervical spinal stenosis M48.02 [place] [id number] [place] [address] 09037- 3855 Feb, Cervical spinal stenosis M48.02 [place] [address] [address]148- 4519 Feb, [facility] [id number] [place] [address] 16910- 3541 Feb, Morbid (severe) obesity due to excess calories E66.01 and Coronary artery disease involving [place] coronary artery of [place] 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 [place] [id number] [place] [address] 45579- 0450 Feb, Mixed hyperlipidemia E78.2 and HTN (hypertension) I10 [place] [id number] [place] [address] 24616- 6477 Feb, Cervical spinal stenosis M48.02 ; HTN (hypertension) I10 ; Mixed hyperlipidemia E78.2 ; Recurrent right knee instability M23.51 and Morbid obesity E66.01 [place] [id number] [place] [address] 25459- 5612 Jan, Other chronic pain G89.29 [place] [id number] [place] [address] 54121- 1364 Dec, Other chronic pain G89.29 [place] [address], [place] [address] 6043 Nov, Other chronic pain G89.29 [facility] [id number] [place] [address] 42153- 9556 Oct, Other chronic pain G89.29 [facility] [address], [place] [address] 1086 Sep, Other chronic pain G89.29 [facility] [id number] [place] [address] 92625- 2500 Sep, Other chronic pain G89.29 [facility] [id number] [place] [address] 14281- 2274 Sep, Tenderness of left calf M79.662 and Cervical spinal stenosis M48.02 [facility] [id number] [place] [address] 57536- 9855 Aug, Other chronic pain G89.29 [facility] [id number] [place] [address] 36876- 9062 Aug, Cervical radiculopathy M54.12 [facility] [address] [place] [address] 71055 -2580 Aug, Cervical neuritis M54.12 [facility] [address], [place] [address] 2340 Jul, Other chronic pain G89.29 [facility] [id number] [place] [address] [id number] Jul, Dental caries K02.9 [facility] [address] [place] [address] 42930- 5789 Jul, Other chronic pain G89.29 [facility] [address] [address] June, Other chronic pain G89.29 [facility] [id number] [place] [address] [id number] 14 May, 2016 Dental examination Z01.20 [facility] [address], [place] [address] 5700 07 May, 2016 Other chronic pain G89.29 [facility] [address] [place] [address] 602587- 4024 21 Apr, 2016 Cervical spinal stenosis M48.02 and Drug-induced constipation K59.03 [facility] [id number] [place] [address] 53944- 0519 13 Apr, 2016 [facility] [id number] [place] [address] 93072- 1127 Apr, Other chronic pain G89.29 [facility] [id number] [place] [address] 853263- 9957 10 Apr, 2016 [facility] [id number] [place] [address] 70233- 9390 Mar, [facility] [id number] [place] [address] 61469- 6906 10 Mar, 2016 Other chronic pain G89.29 [facility] [address] [place] [address] 92596- 4780 Feb, Other chronic pain G89.29 [facility] [address], [place] [address]- 3983 15 Jan, 2016 Other chronic pain G89.29 [facility] [id number] [place] [address] 33696- 6100 30 Dec, 2015 [facility] [id number] [place] [address] 74020- 6128 16 Dec, 2015 Other chronic pain G89.29 [facility] [id number] [place] [address] 565042- 9948 11 Dec, 2015 Cervical spinal stenosis M48.02 ; Encounter for immunization Z23 ; Polyneuropathy associated with underlying disease G63 and Erectile dysfunction due to arterial insufficiency N52.01 [facility] [id number] [place] [address] 23715- 0591 Nov, [facility] [id number] [place] [address] 02121- 5882 Nov, [facility] [id number] [place] [address] 15776- 6068 Oct, [facility] [address] 26489- 7402 Sep, [facility] [address] 01609- 1040 Aug, [facility] [address] 59488- 9516 Jul, Other chronic pain G89.29 [facility] [id number] [place] [address] 41431 -8523 Jul, Angioedema, initial encounter T78.3XXA and Dental abscess K04.7 [facility] [id number] [place] [address] 70629- 6622 Jul, Leg pain M79.606 [place] [address] 23861- 5275 June, Other chronic pain G89.29 and Encounter for immunization Z23 [facility] [id number] [place] [address] 72718- 1059 June, [facility] [id number] [place] [address] 48346- 7666 May, Leg pain M79.606 [facility] [id number] [place] [address] 47966- 9017 Apr, Leg pain M79.606 and Cervical spinal stenosis M48.02 [facility] [id number] [place] [address] 47991- 8780 Apr, [facility] [id number] [place] [address] 80700- 3687 Mar, High ankle sprain of left lower extremity S93.432A [facility] [id number] [place] [address] 37672- 4197 Mar, [facility] [id number] [place] [address] 83535- 8533 Mar, Left ankle pain M25.572 [facility] [id number] [place] [address] 91934- 3580 Mar, [facility] [id number] [place] [address] 48519- 2526 Mar, [facility] [id number] [place] [address] 04480- 2892 Mar, Leg pain M79.606 [facility] [id number] [place] [address] 03371- 4719 Mar, [facility] [id number] [place] [address] 95520- 6298 Mar, Ankle pain M25.579 ; Cardiac disease I51.9 ; Obesity E66.9 ; Leg pain M79.606 ; HTN (hypertension) I10 ; Ingrowing nail L60.0 ; 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 and Foot pain, left M79.672 [facility] [id number] [place] [address] 70993- 0330 Feb, [facility] [id number] [place] [address] 29005- 7925 Jan, [facility] [id number] [place] [address] 44530- 0357 Dec, Cervical spinal stenosis M48.02 and Hypertension I10 [facility] [id number] [place] [address] 92648- 6635 Dec, [facility] [id number] [place] [address] 30383- 1946 Dec, [facility] [address] [facility] [id number] [place] [address]- 0177 Dec, [facility] [address] [facility] [id number] [place] [address]- 9036 Nov, [facility] [address] [facility] [id number] [place] [address]- 3142 Nov, [facility] [address] [facility] [id number] [place] [address]- 3494 Oct, [facility] [address] [facility] [id number] [place] [address]- 3717 Oct, [facility] [id number] [place] [address]- 6259 Oct, [facility] [address] [place] [address]- 7388 Oct, [facility] [id number] [place] [address]- 8626 Sep, [facility] [address] [place] [address]- 3871 Sep, [facility] [address] 5944 Sep, Spinal stenosis in cervical region 723.0 ; Essential hypertension, benign 401.1 and Erectile dysfunction 607.84 [facility] [address], [place] [address]- 8076 Sep, [facility] [address] [facility] [id number], [place] [address]- 2984 Aug, [facility] [address], [place] [address]- 9586 Aug, [facility] [id number], [place] [address]- 2546 Jul, [facility] [id number], [place] [address]- 2605 June, [facility] [address] [id number] [place] [address]- 9900 June, [facility] [address] [id number] [place] [address]- 0464 June, [facility] [address] [facility] [id number] [place] [address]- 7676 June, [facility] [address] [facility] [id number] [place] [address]- 0054 June, Spinal stenosis in cervical region 723.0 and Essential hypertension, benign 401.1 [facility] [address] [id number] [place] [address]- 5198 May, [facility] [address] [facility] [id number] [place] [address]- 1495 May, [facility] [address] [place] [address]- 9216 Apr, [facility] [address] [id number] [place] [address]- 0926 Apr, [facility] [id number] [place] [address]- 9310 Apr, [facility] [address] [facility] [id number] [place] [address]- 5187 Apr, [facility] [address] [id number] [place] [address]- 3484 Mar, [facility] [address] [id number] [place] [address]- 1518 Mar, [facility] [address] [id number] [place] [address]- 6540 Feb, [facility] [address] [id number] [place] 6656 Feb, [facility] [address] [facility] [id number] [place] 4069 Feb, [facility] [place] [facility] [address] [id number] [place] [address]- 0279 Feb, [facility] [place] [facility] [address] [id number] [place] [address]- 6070 Feb, [facility] [place] [facility] [address] [id number] [place] [address]- 5201 Jan, [facility] [place] [facility] [address] [id number] [place] [address]- 4262 Jan, [facility] [place] [facility] [address] [id number] [place] [address]- 8336 Jan, [facility] [place] [facility] [address] [id number] [place] [address]- 7111 Jan, [facility] [place] [facility] [address] [id number] [place] [address]- 5966 Dec, [facility] [place] [facility] [address] [id number] [place] [address]- 7679 Dec, [facility] [place] [facility] [address] [id number] [place] [address]- 1013 Nov, [facility] [place] [facility] [address] [id number] [place] [address]- 9638 Nov, [facility] [place] [facility] [address] [id number] [place] [address]- 5383 Oct, [facility] [place] [facility] [address] [id number] [place] [address]- 7270 Oct, [facility] [place] [facility] [address] [id number] [place] [address]- 5028 Oct, [facility] [place] [facility] [address] [id number] [place] [address]- 5518 Oct, [facility] [place] [facility] [address] [id number] [place] [address]- 0105 Sep, [facility] [place] [facility] [address] [id number] [place] [address]- 1754 Sep, [facility] [place] [facility] [address] [id number] [place] [address]- 2186 Jul, [facility] [place] [facility] [address] [id number] [place] [address]- 2439 Jul, [facility] [place] [facility] [address] [id number] [place] [address]- 5055 Jul, [facility] [place] [facility] [address] [id number] [place] [address]- 7135 Jul, [facility] [place] [facility] [address] [id number] [place] [address]- 2370 June, [facility] [place] [facility] [address] [id number] [place] [address]- 7450 June, [facility] [place] [facility] [address] [id number] [place] [address]- 4797 June, [facility] [place] [facility] [address] [id number] [place] [address]- 1474 June, [facility] [place] [facility] [address] [id number] [place] [address]- 1592 Mar, [facility] [place] [facility] [address] [id number] [place] [address]- 0900 Mar, [facility] [place] [facility] [address] [id number] [place] [address]- 6047 Mar, [facility] [place] [facility] [address] [id number] [place] [address]- 9236 Mar, [facility] [place] [facility] [address] [id number] [place] [address]- 4747 Mar, [facility] [place] [facility] [address] [id number] [place] [address]- 0270 Feb, [facility] [place] [facility] [address] [id number] [place] [address]- 4328 Feb, [facility] [place] [facility] [address] [id number] [place] [address]- 6945 Feb, [facility] [place] [facility] [address] [id number] [place] [address]- 3801 Feb, [facility] [place] [facility] [address] [id number] [place] [address]- 3366 Feb, [facility] [place] [facility] [address] [id number] [place] [address]- 3976 Feb, [facility] [place] [facility] [address] [id number] [place] [address]- 3100 Feb, [facility] [place] [facility] [address] [id number] [place] [address]- 0431 Feb, [facility] [place] [facility] [address] [id number] [place] [address]- 0684 Feb, [facility] [place] [facility] [address] [id number] [place] [address]- 3217 Feb, [facility] [place] [facility] [address] [id number] [place] [address]- 7907 Nov, [facility] [place] [facility] [address] [id number] [place] [address]- 6277 Nov, [facility] [place] [facility] [address] [id number] [place] [address]- 7021 Nov, [facility] [place] [facility] [address] [id number], [place] [address]- 3767 Nov, [facility] [place] [facility] [address] [id number] [place] [address]- 0101 Nov, [facility] [place] [facility] [address] [id number] [place] [address]- 8074 Nov, [facility] [place] [facility] [address] [id number] [place] [address]- 9502 Aug, [facility] [place] [facility] [address] [id number], [place] [address]- 5497 Aug, [facility] [address] [id number] [place] [address]- 2747 Aug, 2012 [facility] [place] [facility] [address] [id number] [place] [address]- 8976 Aug, 2012 [facility] [place] [facility] [address] [id number] [place] [address]- 8280 08 May, 2012 [facility] [place] [facility] [address] [id number] [place] [address]- 8605 18 Apr, 2012 [facility] [address] [id number] [place] [address]- 3307 Apr, [facility] [address] [id number] [place] 7797 Jan, [facility] [address] [id number] [place] [address]- 1209 Jan, [facility] [address] [id number] [place] [address]- 1843 Jan, [facility] [address] [id number] [place] [address]- 2791 Jan, [facility] [place] [facility] [address] [id number] [place] [address]- 0912 Jan, [facility] [address] [id number] [place] [address] Jan, [facility] [place] [facility] [address] [id number] [place] [address] 17 Jan, 2012 [facility] [place] [facility] [address] [id number] [place] [address] 17 Jan, 2012 [facility] [place] [facility] [address] [id number] [place] [address] 12 Jan, 2012 [facility] [place] [facility] [address] [id number] [place] [address] 11 Jan, 2012 [facility] [place] [facility] [address] [id number] [place] [address] Jan, [facility] [place] [facility] [address] [id number] [place] [address] Jan, [facility] [place] [facility] [address] [id number] [place] [address] Jan, [facility] [place] [facility] [address] [id number] [place] [address] Dec, [facility] [place] [facility] [address] [id number] [place] [address] Dec, [facility] [place] [facility] [address] [id number] [place] [address] Dec, [facility] [place] [facility] [address] [id number] [place] [address] Sep, [facility] [place] [facility] [address] [id number] [place] [address] Sep, [facility] [place] [facility] [address] [id number] [place] [address] Sep, [facility] [place] [facility] [address] [id number] [place] [address] Aug, [facility] [place] [facility] [address] [id number] [place] [address] Aug, [facility] [place] [facility] [address] [id number] [place] [address] Aug, [facility] [place] [facility] [address] [id number] [place] [address] June, [facility] [place] [facility] [address] [id number] [place] [address] Apr, [facility] [place] [facility] [address] [id number] [place] [address] Apr, [facility] [place] [facility] [address] [id number] [place] [address] Mar, [facility] [place] [facility] [address] [id number] [place] [address] Feb, [facility] [place] [facility] [address] [id number] [place] [address] Feb, [facility] [place] [facility] [address] [id number] [place] [address] Jan, [facility] [place] [facility] [address] [id number] [place] [address] Jan, [facility] [place] [facility] [address] [id number] [place] [address] Dec, [facility] [place] [facility] [address] [id number] [place] [address] Dec, [facility] [place] [facility] [address] [id number] [place] [address] Dec, [facility] [place] [facility] [address] [id number], [place] [address] Nov, [facility] [place] [facility] [address] [id number] [place] [address] Sep, [facility] [place] [facility] [address] [id number], [place] [address] Apr, [facility] [place] [facility] [address] [id number], [place] [address] Mar, [facility] [place] [facility] [address] [id number], [place] [address] Jan, [facility] [place] [facility] [address] [id number] [place] [address] Dec, [facility] [place] [facility] [address] [id number], [place] [address] Nov, [facility] [place] [facility] [address] [id number] [place] [address] Sep, [facility] [place] [facility] [address] [facility] [id number] [place] [address] Jul, [facility] [address] [facility] [id number] [place] [address] Feb, [facility] [address] [facility] [id number] [place] [address] Jan, IMMUNIZATIONS No Known Immunizations SOCIAL HISTORY [...] Surgical History Cardiac stent 11/2015 Hospitalization History [place] with stent placement 03-06-15 Hospitalization History Cardiac Stent Collapsed/Heart attack 11/2015
--- OUTSIDE RECORDS SUMMARY | 2018-01-15 21:08 | XMS REPORT ---
Author Author ROB RAMIREZ Organization [facility] Address [address] [place] [address] Care Team Providers Care Patient Relations Liaison Name Role Phone ROB RAMIREZ Unavailable PROBLEMS Type Condition ICD9-CM Code CCF55-GW Code Onset Dates Condition Status SNOMED Code Problem Erectile dysfunction due to arterial insufficiency N52.01 Active 039073758 Problem Recurrent right knee instability M23.51 Active 450467791 Problem Other chronic pain G89.29 Active 60844119 Problem Lumbar radiculopathy, chronic M54.16 Active 130441440 Problem Right leg weakness R29.898 Active [id number] Problem Mixed hyperlipidemia E78.2 Active 260200807 Problem Morbid obesity E66.01 Active 960683465 Problem Coronary artery disease involving [place] coronary artery of [place] 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 Active 8921650434618 Problem Morbid (severe) obesity due to excess calories E66.01 Active 209958013 Problem Cervical spinal stenosis M48.02 Active 60253329 Problem Foot pain, left M79.672 Active 18483252 Problem HTN (hypertension) I10 Active 19704382 Problem Cardiac disease I51.9 Active 62538423 Problem Ingrowing nail L60.0 Active 110020293 Problem 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 Active 970532942 Problem Obesity E66.9 Active 756515632 Problem Polyneuropathy associated with underlying disease G63 Active 884069834 ALLERGIES No Information ENCOUNTERS Encounter Location Date Diagnosis [facility] [address], [place] [address] Oct, Lumbar radiculopathy, chronic M54.16 [facility] [address], [place] [address] 24 Oct, 2017 Cervical spinal stenosis M48.02 [facility] [id number], [place] [address] Oct, Lumbar radiculopathy, chronic M54.16 [facility] [address], [place] [address] 38[address] Sep, Cervical spinal stenosis M48.02 [facility] [address], [place] [address] 8[address] Sep, Cervical spinal stenosis M48.02 [facility] [id number] [place] [address] 35614- 8556 Sep, Lumbar radiculopathy, chronic M54.16 [facility] [id number] [place] [address] 03116- 9483 Sep, Lumbar radiculopathy, chronic M54.16 [facility] [id number] [place] [address] 68269- 8527 Aug, Cervical spinal stenosis M48.02 [facility] [id number] [place] [address] 08699- 1589 Aug, [facility] [address], [place] [address] 56[address] Jul, Cervical spinal stenosis M48.02 [facility] [address], [place] [address] Jul, Medicare annual wellness visit, initial Z00.00 ; Morbid ( severe) obesity due to excess calories E66.01 ; Coronary artery disease involving [place] coronary artery of [place] 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 ; 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 ; Polyneuropathy associated with underlying disease G63 ; HTN (hypertension) I10 ; Mixed hyperlipidemia E78.2 ; BMI 50.0-59.9, adult Z68.43 and Encounter for immunization Z23 [facility] [address], [place] [address] 3[address] Jul, Cervical spinal stenosis M48.02 ; HTN (hypertension) I10 ; Coronary artery disease involving [place] coronary artery of [place] 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 and Right leg weakness R29.898 [facility] [id number] [place] [address] 14191- 5093 June, Cervical spinal stenosis M48.02 [facility] [id number] [place] [address] 93960- 1654 June, Cervical spinal stenosis M48.02 [facility] [id number] [place] [address] 28897- 6477 May, Cervical spinal stenosis M48.02 [facility] [id number] [place] [address] 75261- 9577 Apr, Cervical spinal stenosis M48.02 [facility] [id number] [place] [address] 60976 -6104 14 Mar, 2017 Neck pain on right side M54.2 and BMI 50.0-59.9, adult Z68.43 [facility] [id number] [place] [address] 83121- 4901 06 Mar, 2017 Cervical spinal stenosis M48.02 [facility] [id number] [place] [address] 94702- 6616 Feb, Cervical spinal stenosis M48.02 [facility] [id number] [place] [address] 33699- 4408 Feb, [facility] [id number] [place] [address] 73869- 3402 Feb, Morbid (severe) obesity due to excess calories E66.01 and Coronary artery disease involving [place] coronary artery of [place] 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 [facility] [id number] [place] [address] 71229- 5179 05 Feb, 2017 Mixed hyperlipidemia E78.2 and HTN (hypertension) I10 [facility] [id number] [place] [address] 98951- 7742 Feb, Cervical spinal stenosis M48.02 ; HTN (hypertension) I10 ; Mixed hyperlipidemia E78.2 ; Recurrent right knee instability M23.51 and Morbid obesity E66.01 [facility] [id number] [place] [address] 26409- 3260 13 Jan, 2017 Other chronic pain G89.29 [facility] [id number] [place] [address] 65069- 6972 Dec, Other chronic pain G89.29 [facility] [id number] [place] [address] 45205- 3782 Nov, Other chronic pain G89.29 [facility] [id number] [place] [address] 21034- 2720 Oct, Other chronic pain G89.29 [facility] [address] 26520- 6972 Sep, Other chronic pain G89.29 [facility] [address] 64399- 3622 Sep, Other chronic pain G89.29 [facility] [id number] [place] [address] 46356- 0936 Sep, Tenderness of left calf M79.662 and Cervical spinal stenosis M48.02 [facility] [id number] [place] [address] 98014- 6387 Aug, Other chronic pain G89.29 [facility] [id number] [place] [address] 78412- 9986 Aug, Cervical radiculopathy M54.12 [facility] [id number] [place] [address] 76950 -0282 Aug, Cervical neuritis M54.12 [facility] [address] 18837- 8319 Jul, Other chronic pain G89.29 [facility] [address] [place] [address] [id number] 13 Jul, 2016 Dental caries K02.9 [facility] [address] 35274- 7957 Jul, Other chronic pain G89.29 [facility] [address] 9228 June, Other chronic pain G89.29 [facility] [id number] [id number] 14 May, 2016 Dental examination Z01.20 [facility] [id number] [place] [address] 93460- 7266 May, Other chronic pain G89.29 [facility] [address] [place] [address] 60294- 6125 Apr, Cervical spinal stenosis M48.02 and Drug-induced constipation K59.03 [facility] [address], [place] [address]- 0735 Apr, [facility] [id number] [place] [address] 95533- 2537 Apr, Other chronic pain G89.29 [facility] [address], [place] [address]- 9361 Apr, [facility] [id number] [place] [address] 97646- 2617 Mar, [facility] [address], [place] [address]- 9424 Mar, Other chronic pain G89.29 [facility] [address] 6151 Feb, Other chronic pain G89.29 [facility] [address] 7902 Jan, Other chronic pain G89.29 [facility] [address] 3946 30 Dec, 2015 [facility] [address] [place] [address] 907478- 3770 Dec, Other chronic pain G89.29 [facility] [id number] [place] [address] 38536- 9909 Dec, Cervical spinal stenosis M48.02 ; Encounter for immunization Z23 ; Polyneuropathy associated with underlying disease G63 and Erectile dysfunction due to arterial insufficiency N52.01 [facility] [address] 51894- 2802 Nov, [facility] [address] 47375- 0520 Nov, [facility] [address] 14341- 8139 Oct, [facility] [address] 44110- 3865 Sep, [facility] [address] 81502- 4629 Aug, [facility] [address] 32458- 1595 Jul, Other chronic pain G89.29 [facility] [address] 48484 -8776 Jul, Angioedema, initial encounter T78.3XXA and Dental abscess K04.7 [facility] [id number] [place] [address] 03943- 2063 Jul, Leg pain M79.606 [facility] [address] 96808- 1004 June, Other chronic pain G89.29 and Encounter for immunization Z23 [facility] [address] 99750- 2761 June, [facility] [address] 11742- 8342 May, Leg pain M79.606 [facility] [address] 53929- 3523 Apr, Leg pain M79.606 and Cervical spinal stenosis M48.02 [facility] [id number] [place] [address] 62374- 2032 Apr, [facility] [id number] [place] [address] 86838- 3945 Mar, High ankle sprain of left lower extremity S93.432A [facility] [address] 90284- 7097 Mar, [facility] [id number] [place] [address] 21660- 5546 Mar, Left ankle pain M25.572 [facility] [id number] [place] [address] 78544- 6126 Mar, [facility] [address] 57010- 3122 Mar, [facility] [id number] [place] [address] 75838- 6994 Mar, Leg pain M79.606 [facility] [id number] [place] [address] 57725- 7720 Mar, [facility] [id number] [place] [address] 04225- 6319 Mar, Ankle pain M25.579 ; Cardiac disease I51.9 ; Obesity E66.9 ; Leg pain M79.606 ; HTN (hypertension) I10 ; Ingrowing nail L60.0 ; 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 and Foot pain, left M79.672 [facility] [id number] [place] [address] 22770- 0207 Feb, [facility] [id number] [place] [address] 55604- 0378 Jan, [facility] [address] 51004- 3857 Dec, Cervical spinal stenosis M48.02 and Hypertension I10 [facility] [id number] [address]- 8408 Dec, [facility] [id number] [address]- 7024 Dec, [facility] [id number] [place] [address] 16286- 3772 Dec, [facility] [id number] [place] [address] 54517- 9586 Nov, [facility] [id number] [place] [address] 03588- 1142 Nov, [facility] [id number] [place] [address] 20395- 8848 Oct, [facility] [id number] [place] [address] 31644- 6084 Oct, [facility] [id number] [place] [address] 24168- 5931 Oct, [facility] [id number] [place] [address] 45901- 9527 Oct, [facility] [address], [place] [address]- 0340 Sep, [facility] [address] [place] [address] 34536- 7029 Sep, [facility] [id number] [place] [address] 19508- 3133 Sep, Spinal stenosis in cervical region 723.0 ; Essential hypertension, benign 401.1 and Erectile dysfunction 607.84 [facility] [address], [place] [address]- 4142 Sep, [facility] [address], [place] [address]- 8978 Aug, [facility] [id number] [place] [address]- 9610 Aug, [facility] [address] [facility] [id number] [place] [address]- 0548 Jul, [facility] [id number] [place] [address]- 3434 June, [facility] [address] 0669 June, [facility] [address] [facility] [id number] [place] [address]- 1953 June, [facility] [address] [place] [address]- 0624 June, [facility] [address] [place] [address]- 6050 June, Spinal stenosis in cervical region 723.0 and Essential hypertension, benign 401.1 [facility] [id number] [place] [address]- 8899 May, [facility] [id number] [place] [address]- 1250 May, [facility] [address] [place] [address]- 9609 Apr, [facility] [id number], [place] [address]- 5859 Apr, [facility] [address] [facility] [id number] [address]- 6125 Apr, [facility] [address] [facility] [id number] [place] [address]- 5229 Apr, [facility] [address] [facility] [id number]- 8113 Mar, [facility] [address] [id number] [place] [address]- 0757 Mar, [facility] [address] [id number] [place] [address]- 6631 Feb, [facility] [address] [id number] [place] [address]- 8162 Feb, [facility] [place] [facility] [address] [id number] [place] [address]- 3102 15 Feb, 2014 [facility] [address] [id number] [place] [address]- 4340 Feb, [facility] [place] [facility] [address] [id number] [place] [address]- 6590 Feb, [facility] [address] [id number] [place] 2435 Jan, [facility] [address] [id number] [place] [address]- 8312 Jan, [facility] [address] [id number] [place] [address]- 6275 Jan, [facility] [address] [id number] [place] [address]- 6926 Jan, [facility] [place] [facility] [address] [id number] [place] [address]- 2077 Dec, [facility] [address] [id number] [place] [address]- 4950 Dec, [facility] [place] [facility] [address] [id number] [place] [address]- 3953 Nov, [facility] [place] [facility] [address] [id number] [place] [address]- 9815 Nov, [facility] [place] [facility] [address] [id number] [place] [address]- 0540 Oct, [facility] [place] [facility] [address] [id number] [place] [address]- 2956 Oct, [facility] [place] [facility] [address] [id number] [place] 4525 Oct, [facility] [place] [facility] [address] [id number] [place] [address]- 3692 Oct, [facility] [place] [facility] [address] [id number] [place] [address]- 3412 Sep, [facility] [place] [facility] [address] [id number] [place] [address]- 0463 Sep, [facility] [place] [facility] [address] [id number] [place] [address]- 6527 Jul, [facility] [place] [facility] [address] [id number] [place] [address]- 7790 Jul, [facility] [place] [facility] [address] [id number] [place] [address]- 8873 Jul, [facility] [place] [facility] [address] [id number] [place] [address]- 0680 Jul, [facility] [place] [facility] [address] [id number] [place] [address]- 7107 June, [facility] [place] [facility] [address] [id number] [place] [address]- 7388 June, [facility] [place] [facility] [address] [id number] [place] [address]- 6555 June, [facility] [place] [facility] [address] [id number] [place] [address]- 0863 June, [facility] [place] [facility] [address] [id number] [place] [address]- 5299 Mar, [facility] [place] [facility] [address] [id number] [place] [address]- 0450 Mar, [facility] [place] [facility] [address] [id number] [place] [address]- 0541 Mar, [facility] [place] [facility] [address] [id number] [place] [address]- 6230 Mar, [facility] [place] [facility] [address] [id number] [place] [address]- 9433 Mar, [facility] [place] [facility] [address] [id number] [place] [address]- 2153 Feb, [facility] [place] [facility] [address] [id number] [place] [address]- 7416 Feb, [facility] [place] [facility] [address] [id number] [place] [address]- 2470 Feb, [facility] [place] [facility] [address] [id number] [place] [address]- 6094 Feb, [facility] [place] [facility] [address] [id number] [place] [address]- 7843 Feb, [facility] [place] [facility] [address] [id number] [place] [address]- 9166 Feb, [facility] [place] [facility] [address] [id number] [place] [address]- 4385 Feb, [facility] [place] [facility] [address] [id number] [place] [address]- 0713 Feb, [facility] [place] [facility] [address] [id number] [place] [address]- 0751 Feb, [facility] [place] [facility] [address] [id number] [place] [address]- 4868 Feb, [facility] [place] [facility] [address] [id number] [place] [address]- 4690 Nov, [facility] [place] [facility] [address] [id number] [place] [address]- 3338 Nov, [facility] [place] [facility] [address] [id number] [place] [address]- 5789 Nov, [facility] [place] [facility] [address] [id number] [place] [address]- 9355 Nov, [facility] [place] [facility] [address] [id number] [place] [address]- 0663 Nov, [facility] [place] [facility] [address] [id number] [place] [address] 2541 Nov, [facility] [address] [id number] [place] [address]- 2546 Aug, [facility] [address] [id number] [place] [address]- 2546 Aug, [facility] [address] [id number] [place] [address]- 2546 Aug, [facility] [address] [id number] [place] [address]- 2544 Aug, [facility] [address] [id number] [place] [address]- 2546 May, [facility] [address] [id number] [place] [address]- 2547 Apr, [facility] [address] [id number] [place] [address]- 8923 Apr, [facility] [address] [id number] [place] [address]- 3184 Jan, [facility] [address] [id number] [place] [address]- 9748 Jan, [facility] [address] [id number] [place] [address]- 4168 Jan, [facility] [address] [id number] [place] [address]- 4897 Jan, [facility] [address] [id number] [place] [address] Jan, [facility] [place] [facility] [address] [id number] [place] [address] Jan, [facility] [address] [id number] [place] [address] Jan, [facility] [address] [id number] [place] [address] Jan, [facility] [place] [facility] [address] [id number] [place] [address] Jan, [facility] [place] [facility] [address] [id number] [place] [address] Jan, [facility] [place] [facility] [address] [id number] [place] [address] Jan, [facility] [place] [facility] [address] [id number] [place] [address] Jan, [facility] [place] [facility] [address] [id number] [place] [address] Jan, [facility] [place] [facility] [address] [id number] [place] [address] Dec, [facility] [place] [facility] [address] [id number] [place] [address] Dec, [facility] [place] [facility] [address] [id number] [place] [address] Dec, [facility] [place] [facility] [address] [id number] [place] [address] Sep, [facility] [place] [facility] [address] [id number] [place] [address] Sep, [facility] [place] [facility] [address] [id number] [place] [address] Sep, [facility] [place] [facility] [address] [id number] [place] [address] Aug, [facility] [place] [facility] [address] [id number] [place] [address] Aug, [facility] [place] [facility] [address] [id number] [place] [address] Aug, [facility] [place] [facility] [address] [id number] [place] [address] June, [facility] [place] [facility] [address] [id number] [place] [address] 28 Apr, 2011 [facility] [address] [id number] [place] [address] Apr, [facility] [place] [facility] [address] [id number] [place] [address] Mar, [facility] [address] [id number] [place] [address] Feb, [facility] [place] [facility] [address] [id number] [place] [address] Feb, [facility] [address] [id number] [place] [address]- [address] Jan, [facility] [place] [facility] [address] [id number] [place] [address] Jan, [facility] [address] [id number] [place] [address] Dec, [facility] [address] [id number] [place] [address] Dec, [facility] [place] [facility] [address] [id number] [place] [address] Dec, [facility] [address] [id number] [place] [address] Nov, [facility] [place] [facility] [address] [id number] [place] [address] 15 Sep, 2010 [facility] [place] [facility] [address] [id number] [place] [address] 15 Apr, 2010 [facility] [place] [facility] [address] [id number] [place] [address] 16 Mar, 2010 [facility] [place] [facility] [address] [id number] [place] [address] Jan, [facility] [place] [facility] [address] [id number] [place] [address] Dec, [facility] [address] [facility] [id number], [place] [address] Nov, [facility] [address] [facility] [id number], [place] [address] Sep, [facility] [address] [facility] [id number], [place] [address] Jul, [facility] [address] [facility] [id number], [place] [id number], [facility] [address] [facility] [id number], [place] [address] Jan, IMMUNIZATIONS No Known Immunizations SOCIAL HISTORY Never Assessed REASON FOR VISIT Controlled Med Refill PLAN OF CARE VITAL SIGNS MEDICATIONS Medication Instructions Dosage Frequency Start Date End Date Duration Status Viagra 100 MG TAKE ONE TABLET BY MOUTH ONCE DAILY NEEDED 30 Active Morphine Sulfate ER 15 mg Orally every 12 hrs 1 tablet 12h 10 Oct, 2017 13 days Active RESULTS No [...]
--- OUTSIDE RECORDS SUMMARY | 2018-01-15 21:09 | XMS REPORT ---
Author Author ROB RAMIREZ [facility] Address [address] [place] [address] Care Team Providers Care Underwriting Consultant Name Role Phone ROB RAMIREZ Unavailable PROBLEMS Type Condition ICD9-CM Code VPL23-ET Code Onset Dates Condition Status SNOMED Code Problem Erectile dysfunction due to arterial insufficiency N52.01 Active 035631681 Problem Recurrent right knee instability M23.51 Active 417638795 Problem Other chronic pain G89.29 Active 85449389 Problem Lumbar radiculopathy, chronic M54.16 Active 380650024 Problem Right leg weakness R29.898 Active 11461420968312792 Problem Mixed hyperlipidemia E78.2 Active 179076019 Problem Morbid obesity E66.01 Active 223198309 Problem Coronary artery disease involving [place] coronary artery of [place] 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 Active 9087601998844 Problem Morbid (severe) obesity due to excess calories E66.01 Active 301007625 Problem Cervical spinal stenosis M48.02 Active 32659477 Problem Foot pain, left M79.672 Active 84192684 Problem HTN (hypertension) I10 Active 52569313 Problem Cardiac disease I51.9 Active 89435826 Problem Ingrowing nail L60.0 Active 794786175 Problem 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 Active 119388073 Problem Obesity E66.9 Active 223508433 Problem Polyneuropathy associated with underlying disease G63 Active 619574692 ALLERGIES No Information ENCOUNTERS Encounter Location Date Diagnosis [facility] [id number] [address] Oct, Lumbar radiculopathy, chronic M54.16 [facility] [address] [address] Sep, Cervical spinal stenosis M48.02 [facility] [id number] [address] 27[address] Sep, Cervical spinal stenosis M48.02 [address] [address] [address] Sep, Lumbar radiculopathy, chronic M54.16 [facility] [id number] [place] [address] 30203- 3331 Sep, Lumbar radiculopathy, chronic M54.16 [place] [id number] [place] [address] 89175- 7534 Aug, Cervical spinal stenosis M48.02 [place] [id number] [place] [address] 61047- 3640 Aug, [place] [id number] [place] [address] 78367- 7890 Jul, Cervical spinal stenosis M48.02 [place] [id number] [place] [address] 33328- 3800 Jul, Medicare annual wellness visit, initial Z00.00 ; Morbid ( severe) obesity due to excess calories E66.01 ; Coronary artery disease involving [place] coronary artery of [place] 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 ; 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 ; Polyneuropathy associated with underlying disease G63 ; HTN (hypertension) I10 ; Mixed hyperlipidemia E78.2 ; BMI 50.0-59.9, adult Z68.43 and Encounter for immunization Z23 [address] [id number] [place] [address] 73912- 4465 Jul, Cervical spinal stenosis M48.02 ; HTN (hypertension) I10 ; Coronary artery disease involving [place] coronary artery of [place] 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 and Right leg weakness R29.898 [place] [id number] [place] [address] 53486- 7211 June, Cervical spinal stenosis M48.02 [place] [id number] [place] [address] 45531- 1432 June, Cervical spinal stenosis M48.02 [place] [id number] [place] [address] 19796- 1239 May, Cervical spinal stenosis M48.02 [place] [id number] [place] [address] 12987- 9191 Apr, Cervical spinal stenosis M48.02 [facility] [id number] [place] [address] 84415 -5251 14 Mar, 2017 Neck pain on right side M54.2 and BMI 50.0-59.9, adult Z68.43 [place] [id number] [place] [address] 11689- 2828 06 Mar, 2017 Cervical spinal stenosis M48.02 [place] [id number] [place] [address] 90798- 6843 Feb, Cervical spinal stenosis M48.02 [place] [address] 35463- 0511 Feb, [facility] [id number] [place] [address] 90303- 0128 Feb, Morbid (severe) obesity due to excess calories E66.01 and Coronary artery disease involving [place] coronary artery of [place] 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 [place] [id number] [place] [address] 95708- 2640 Feb, Mixed hyperlipidemia E78.2 and HTN (hypertension) I10 [place] [id number] [place] [address] 44566- 6412 Feb, Cervical spinal stenosis M48.02 ; HTN (hypertension) I10 ; Mixed hyperlipidemia E78.2 ; Recurrent right knee instability M23.51 and Morbid obesity E66.01 [place] [id number] [place] [address] 43534- 1036 Jan, Other chronic pain G89.29 [place] [id number] [place] [address] 30524- 9063 Dec, Other chronic pain G89.29 [place] [address] 9669 Nov, Other chronic pain G89.29 [facility] [id number] [place] [address] 57217- 2256 Oct, Other chronic pain G89.29 [facility] [address] [address]- 2176 Sep, Other chronic pain G89.29 [facility] [id number] [place] [address] 69433- 4466 Sep, Other chronic pain G89.29 [facility] [id number] [place] [address] 59287- 4634 Sep, Tenderness of left calf M79.662 and Cervical spinal stenosis M48.02 [facility] [id number] [place] [address] 67065- 9678 Aug, Other chronic pain G89.29 [facility] [id number] [place] [address] 67633- 7979 Aug, Cervical radiculopathy M54.12 [facility] [id number] [place] [address] 96340 -8938 Aug, Cervical neuritis M54.12 [facility] [address] [address]- 7659 Jul, Other chronic pain G89.29 [facility] [id number] [place] [address] [id number] Jul, Dental caries K02.9 [facility] [address] [place] [address] 59822- 2964 Jul, Other chronic pain G89.29 [facility] [address] [address] June, Other chronic pain G89.29 [facility] [id number] [place] [address] [id number] 14 May, 2016 Dental examination Z01.20 [facility] [address] [address]- 6991 07 May, 2016 Other chronic pain G89.29 [facility] [id number] [place] [address] 970188- 3038 21 Apr, 2016 Cervical spinal stenosis M48.02 and Drug-induced constipation K59.03 [facility] [id number] [place] [address] 72913- 5500 13 Apr, 2016 [facility] [id number] [place] [address] 09338- 3561 Apr, Other chronic pain G89.29 [facility] [id number] [place] [address] 211501- 5772 10 Apr, 2016 [facility] [id number] [place] [address] 40503- 0539 Mar, [facility] [id number] [place] [address] 52754- 0964 10 Mar, 2016 Other chronic pain G89.29 [facility] [address] [place] [address] 81901- 1835 Feb, Other chronic pain G89.29 [facility] [address] [address]- 1112 15 Jan, 2016 Other chronic pain G89.29 [facility] [id number] [place] [address] 27128- 6135 30 Dec, 2015 [facility] [address] [place] [address] 14599- 8658 16 Dec, 2015 Other chronic pain G89.29 [facility] [id number] [place] [address] 466075- 6382 11 Dec, 2015 Cervical spinal stenosis M48.02 ; Encounter for immunization Z23 ; Polyneuropathy associated with underlying disease G63 and Erectile dysfunction due to arterial insufficiency N52.01 [facility] [id number] [place] [address] 52532- 3928 Nov, [facility] [id number] [place] [address] 09539- 6654 Nov, [facility] [id number] [place] [address] 90806- 3630 Oct, [facility] [address] 86643- 8789 Sep, [facility] [address] 68061- 4220 Aug, [facility] [address] 38896- 2253 Jul, Other chronic pain G89.29 [facility] [id number] [place] [address] 55312 -8215 Jul, Angioedema, initial encounter T78.3XXA and Dental abscess K04.7 [facility] [id number] [place] [address] 25404- 1475 Jul, Leg pain M79.606 [place] [address] 71812- 6849 June, Other chronic pain G89.29 and Encounter for immunization Z23 [facility] [id number] [place] [address] 55013- 0715 June, [facility] [id number] [place] [address] 06534- 9186 May, Leg pain M79.606 [facility] [id number] [place] [address] 03541- 5315 Apr, Leg pain M79.606 and Cervical spinal stenosis M48.02 [facility] [id number] [place] [address] 60002- 0728 Apr, [facility] [id number] [place] [address] 78434- 0368 Mar, High ankle sprain of left lower extremity S93.432A [facility] [id number] [place] [address] 35184- 0491 Mar, [facility] [id number] [place] [address] 73688- 0952 Mar, Left ankle pain M25.572 [facility] [id number] [place] [address] 04281- 2392 Mar, [facility] [id number] [place] [address] 05199- 7600 Mar, [facility] [id number] [place] [address] 78373- 1307 Mar, Leg pain M79.606 [facility] [id number] [place] [address] 95514- 5333 Mar, [facility] [id number] [place] [address] 53038- 3489 Mar, Ankle pain M25.579 ; Cardiac disease I51.9 ; Obesity E66.9 ; Leg pain M79.606 ; HTN (hypertension) I10 ; Ingrowing nail L60.0 ; 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 and Foot pain, left M79.672 [facility] [id number] [place] [address] 52753- 0119 Feb, [facility] [id number] [place] [address] 74672- 6144 Jan, [facility] [id number] [place] [address] 94120- 4795 Dec, Cervical spinal stenosis M48.02 and Hypertension I10 [facility] [id number] [place] [address] 22768- 3671 Dec, [facility] [id number] [place] [address] 67340- 0795 Dec, [facility] [address] [facility] [id number] [place] [address]- 9819 Dec, [facility] [address] [facility] [id number] [place] [address]- 6174 Nov, [facility] [address] [facility] [id number] [place] [address]- 0883 Nov, [facility] [address] [facility] [id number] [place] [address]- 0587 Oct, [facility] [address] [facility] [id number] [place] [address]- 0430 Oct, [facility] [id number] [place] [address]- 1425 Oct, [facility] [address] [place] [address]- 1801 Oct, [facility] [id number] [address]- 7401 Sep, [facility] [address] [place] [address]- 8524 Sep, [facility] [address] 0337 Sep, Spinal stenosis in cervical region 723.0 ; Essential hypertension, benign 401.1 and Erectile dysfunction 607.84 [facility] [address] [address]- 4846 Sep, [facility] [address] [facility] [id number] [address]- 3194 Aug, [facility] [address] [address]- 2281 Aug, [facility] [id number] [address]- 2546 Jul, [facility] [id number] [address]- 1812 June, [facility] [address] [id number] [place] [address]- 4453 June, [facility] [address] [id number] [place] [address]- 1598 June, [facility] [address] [facility] [id number] [place] [address]- 7627 June, [facility] [address] [facility] [id number] [place] [address]- 8638 June, Spinal stenosis in cervical region 723.0 and Essential hypertension, benign 401.1 [facility] [address] [id number] [place] [address]- 5468 May, [facility] [address] [facility] [id number] [place] [address]- 5555 May, [facility] [address] [place] [address]- 3845 Apr, [facility] [address] [id number] [place] [address]- 1250 Apr, [facility] [id number] [place] [address]- 1028 Apr, [facility] [address] [facility] [id number] [place] [address]- 5453 Apr, [facility] [address] [id number] [place] [address]- 7522 Mar, [facility] [address] [id number] [place] [address]- 3100 Mar, [facility] [address] [id number] [place] [address]- 9826 Feb, [facility] [address] [id number] [place] 1246 Feb, [facility] [address] [facility] [id number] [place] 0891 Feb, [facility] [place] [facility] [address] [id number] [place] [address]- 1246 Feb, [facility] [place] [facility] [address] [id number] [place] [address]- 3326 Feb, [facility] [place] [facility] [address] [id number] [place] [address]- 4893 Jan, [facility] [place] [facility] [address] [id number] [place] [address]- 3126 Jan, [facility] [place] [facility] [address] [id number] [place] [address]- 6686 Jan, [facility] [place] [facility] [address] [id number] [place] [address]- 8916 Jan, [facility] [place] [facility] [address] [id number] [place] [address]- 1367 Dec, [facility] [place] [facility] [address] [id number] [place] [address]- 3371 Dec, [facility] [place] [facility] [address] [id number] [place] [address]- 9066 Nov, [facility] [place] [facility] [address] [id number] [place] [address]- 6418 Nov, [facility] [place] [facility] [address] [id number] [place] [address]- 8344 Oct, [facility] [place] [facility] [address] [id number] [place] [address]- 5268 Oct, [facility] [place] [facility] [address] [id number] [place] [address]- 1963 Oct, [facility] [place] [facility] [address] [id number] [place] [address]- 7126 Oct, [facility] [place] [facility] [address] [id number] [place] [address]- 0388 Sep, [facility] [place] [facility] [address] [id number] [place] [address]- 9080 Sep, [facility] [place] [facility] [address] [id number] [place] [address]- 9638 Jul, [facility] [place] [facility] [address] [id number] [place] [address]- 4209 Jul, [facility] [place] [facility] [address] [id number] [place] [address]- 8968 Jul, [facility] [place] [facility] [address] [id number] [place] [address]- 1688 Jul, [facility] [place] [facility] [address] [id number] [place] [address]- 0794 June, [facility] [place] [facility] [address] [id number] [place] [address]- 1755 June, [facility] [place] [facility] [address] [id number] [place] [address]- 9740 June, [facility] [place] [facility] [address] [id number] [place] [address]- 8270 June, [facility] [place] [facility] [address] [id number] [place] [address]- 9989 Mar, [facility] [place] [facility] [address] [id number] [place] [address]- 1635 Mar, [facility] [place] [facility] [address] [id number] [place] [address]- 1384 Mar, [facility] [place] [facility] [address] [id number] [place] [address]- 7755 Mar, [facility] [place] [facility] [address] [id number] [place] [address]- 8917 Mar, [facility] [place] [facility] [address] [id number] [place] [address]- 7468 Feb, [facility] [place] [facility] [address] [id number] [place] [address]- 5829 Feb, [facility] [place] [facility] [address] [id number] [place] [address]- 6980 Feb, [facility] [place] [facility] [address] [id number] [place] [address]- 9096 Feb, [facility] [place] [facility] [address] [id number] [place] [address]- 0948 Feb, [facility] [place] [facility] [address] [id number] [place] [address]- 2573 Feb, [facility] [place] [facility] [address] [id number] [place] [address]- 7458 Feb, [facility] [place] [facility] [address] [id number] [place] [address]- 1449 Feb, [facility] [place] [facility] [address] [id number] [place] [address]- 6968 Feb, [facility] [place] [facility] [address] [id number] [place] [address]- 3410 Feb, [facility] [place] [facility] [address] [id number] [place] [address]- 6287 Nov, [facility] [place] [facility] [address] [id number] [place] [address]- 3050 Nov, [facility] [place] [facility] [address] [id number] [place] [address]- 3755 Nov, [facility] [place] [facility] [address] [id number] [place] [address]- 9579 Nov, [facility] [place] [facility] [address] [id number] [place] [address]- 1698 Nov, [facility] [place] [facility] [address] [id number] [place] [address]- 3374 Nov, [facility] [place] [facility] [address] [id number] [place] [address]- 1293 Aug, [facility] [place] [facility] [address] [id number] [address]- 5312 Aug, [facility] [address] [id number] [place] [address]- 6742 Aug, 2012 [facility] [place] [facility] [address] [id number] [place] [address]- 5676 Aug, 2012 [facility] [place] [facility] [address] [id number] [place] [address]- 1149 08 May, 2012 [facility] [place] [facility] [address] [id number] [place] [address]- 7038 18 Apr, 2012 [facility] [address] [id number] [place] [address]- 2361 Apr, [facility] [address] [id number] [place] 9023 Jan, [facility] [address] [id number] [place] [address]- 7667 Jan, [facility] [address] [id number] [place] [address]- 3894 Jan, [facility] [address] [id number] [place] [address]- 6254 Jan, [facility] [place] [facility] [address] [id number] [place] [address]- 1457 Jan, [facility] [address] [id number] [place] [address]- 3710 Jan, [facility] [place] [facility] [address] [id number] [place] [address] 17 Jan, 2012 [facility] [place] [facility] [address] [id number] [place] [address] 17 Jan, 2012 [facility] [place] [facility] [address] [id number] [place] [address] 12 Jan, 2012 [facility] [place] [facility] [address] [id number] [place] [address] 11 Jan, 2012 [facility] [place] [facility] [address] [id number] [place] [address] Jan, [facility] [place] [facility] [address] [id number] [place] [address] Jan, [facility] [place] [facility] [address] [id number] [place] [address] Jan, [facility] [place] [facility] [address] [id number] [place] [address] Dec, [facility] [place] [facility] [address] [id number] [place] [address] Dec, [facility] [place] [facility] [address] [id number] [place] [address] Dec, [facility] [place] [facility] [address] [id number] [place] [address] Sep, [facility] [place] [facility] [address] [id number] [place] [address] Sep, [facility] [place] [facility] [address] [id number] [place] [address] Sep, [facility] [place] [facility] [address] [id number] [place] [address] Aug, [facility] [place] [facility] [address] [id number] [place] [address] Aug, [facility] [place] [facility] [address] [id number] [place] [address] Aug, [facility] [place] [facility] [address] [id number] [place] [address] June, [facility] [place] [facility] [address] [id number] [place] [address] Apr, [facility] [place] [facility] [address] [id number] [place] [address] Apr, [facility] [place] [facility] [address] [id number] [place] [address] Mar, [facility] [place] [facility] [address] [id number] [place] [address] Feb, [facility] [place] [facility] [address] [id number] [place] [address] Feb, [facility] [place] [facility] [address] [id number] [place] [address] Jan, [facility] [place] [facility] [address] [id number] [place] [address] Jan, [facility] [place] [facility] [address] [id number] [place] [address] Dec, [facility] [place] [facility] [address] [id number] [place] [address] Dec, [facility] [place] [facility] [address] [id number] [place] [address] Dec, [facility] [place] [facility] [address] [id number] [place] [address] Nov, [facility] [place] [facility] [address] [id number] [place] [address] Sep, [facility] [place] [facility] [address] [id number] [place] [address] Apr, [facility] [place] [facility] [address] [id number] [place] [address] Mar, [facility] [place] [facility] [address] [id number] [place] [address] Jan, [facility] [place] [facility] [address] [id number] [place] [address] Dec, [facility] [place] [facility] [address] [id number] [place] [address] Nov, [facility] [place] [facility] [address] [id number] [place] [address] Sep, [facility] [place] [facility] [address] [facility] [id number] [place] [address] 16 Jul, 2009 [facility] [address] [facility] [id number] [place] [address] Feb, [facility] [address] [facility] [id number] [place] [address] [address] Jan, IMMUNIZATIONS No Known Immunizations SOCIAL HISTORY Never Assessed REASON FOR VISIT Controlled med refill PLAN OF CARE VITAL SIGNS MEDICATIONS Medication Instructions Dosage Frequency Start Date End Date Duration Status Morphine Sulfate ER 15 mg Orally every 12 hrs 1 tablet 12h 17 Sep, 2017 Sep, 13 days Active RESULTS No Results PROCEDURES No Known procedures INSTRUCTIONS MEDICATIONS ADMINISTERED No Known Medications MEDICAL (GENERAL) HISTORY Type Description Date Medical History spinal compression fracture Medical History cardiovascular disease Medical History stent placed 03-07-15 Surgical History cardiac stent 03-07-15 Surgical History Cardiac stent 11/2015 Hospitalization History [facility] with stent placement 03-06-15 Hospitalization History Cardiac Stent Collapsed/Heart attack 11/2015
--- OUTSIDE RECORDS SUMMARY | 2018-01-15 21:09 | XMS REPORT ---
Author Author ROB RAMIRZE [facility] Address [address] [place] [address] Care Team Providers Care Appliance Adjuster Name Role Phone ROB RAMIREZ Unavailable PROBLEMS Type Condition ICD9-CM Code [id number] Code Onset Dates Condition Status SNOMED Code Problem Erectile dysfunction due to arterial insufficiency N52.01 Active 598374445 Problem Recurrent right knee instability M23.51 Active 350577504 Problem Other chronic pain G89.29 Active 84920775 Problem Lumbar radiculopathy, chronic M54.16 Active 267710840 Problem Right leg weakness R29.898 Active [id number] Problem Mixed hyperlipidemia E78.2 Active 610966831 Problem Morbid obesity E66.01 Active 760763916 Problem Coronary artery disease involving [place] tribe coronary artery of [place] tribe 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 Active 8531216360492 Problem Morbid (severe) obesity due to excess calories E66.01 Active 642889944 Problem Cervical spinal stenosis M48.02 Active 04079206 Problem Foot pain, left M79.672 Active 46406546 Problem HTN (hypertension) I10 Active 74907285 Problem Cardiac disease I51.9 Active 00623131 Problem Ingrowing nail L60.0 Active 049155566 Problem 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 Active 513687009 Problem Obesity E66.9 Active 035876170 Problem Polyneuropathy associated with underlying disease G63 Active 595898798 ALLERGIES No Information ENCOUNTERS Encounter Location Date Diagnosis [facility] [id number] [address] Oct, Lumbar radiculopathy, chronic M54.16 [facility] [address], [place] [address] Sep, Cervical spinal stenosis M48.02 [facility] [address] [id number], [place] [address] Sep, Cervical spinal stenosis M48.02 [address] [address], [place] [address] Sep, Lumbar radiculopathy, chronic M54.16 [facility] [id number] [place] [address] 00484- 0228 Sep, Lumbar radiculopathy, chronic M54.16 [facility] [id number] [place] [address] 28506- 4689 Aug, Cervical spinal stenosis M48.02 [facility] [id number] [place] [address] 59289- 4068 Aug, [facility] [id number] [place] [address] 95321- 2008 Jul, Cervical spinal stenosis M48.02 [facility] [id number] [place] [address] 38042- 8307 Jul, Medicare annual wellness visit, initial Z00.00 ; Morbid ( severe) obesity due to excess calories E66.01 ; Coronary artery disease involving s[place] tribe coronary artery of s[place] tribe 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 ; 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 ; Polyneuropathy associated with underlying disease G63 ; HTN (hypertension) I10 ; Mixed hyperlipidemia E78.2 ; BMI 50.0-59.9, adult Z68.43 and Encounter for immunization Z23 [place] [address] [place] [address] 77849- 1418 Jul, Cervical spinal stenosis M48.02 ; HTN (hypertension) I10 ; Coronary artery disease involving [place] tribe coronary artery of [place] tribe 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 and Right leg weakness R29.898 [facility] [id number] [place] [address] 49688- 0864 June, Cervical spinal stenosis M48.02 [facility] [id number] [place] [address] 95368- 4405 June, Cervical spinal stenosis M48.02 [place] [id number] [place] [address] 98145- 7649 May, Cervical spinal stenosis M48.02 [place] [id number] [place] [address] 49300- 3419 Apr, Cervical spinal stenosis M48.02 [facility] [id number] [place] [address] 42903 -8469 14 Mar, 2017 Neck pain on right side M54.2 and BMI 50.0-59.9, adult Z68.43 [place] [id number] [place] [address] 31056- 3956 06 Mar, 2017 Cervical spinal stenosis M48.02 [place] [id number] [place] [address] 04982- 7258 Feb, Cervical spinal stenosis M48.02 [place] [address] [address]- [address] Feb, [facility] [id number] [place] [address] 52859- 7656 Feb, Morbid (severe) obesity due to excess calories E66.01 and Coronary artery disease involving s[place] tribe coronary artery of [place] 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 [place] [id number] [place] [address] 33842- 1115 Feb, Mixed hyperlipidemia E78.2 and HTN (hypertension) I10 [place] [id number] [place] [address] 94198- 9968 Feb, Cervical spinal stenosis M48.02 ; HTN (hypertension) I10 ; Mixed hyperlipidemia E78.2 ; Recurrent right knee instability M23.51 and Morbid obesity E66.01 [facility] [id number] [place] [address] 75982- 8593 Jan, Other chronic pain G89.29 [facility] [id number] [place] [address] 38038- 2207 Dec, Other chronic pain G89.29 [place] [address] 8561 Nov, Other chronic pain G89.29 [facility] [id number] [place] [address] 38255- 8136 Oct, Other chronic pain G89.29 [facility] [address], [place] [address] 2876 Sep, Other chronic pain G89.29 [facility] [id number] [place] [address] 34203- 1981 Sep, Other chronic pain G89.29 [facility] [id number] [place] [address] 16815- 5632 Sep, Tenderness of left calf M79.662 and Cervical spinal stenosis M48.02 [facility] [id number] [place] [address] 37461- 3901 Aug, Other chronic pain G89.29 [facility] [address] [place] [address] 79819- 2545 Aug, Cervical radiculopathy M54.12 [facility] [address] [place] [address] 60761 -1442 Aug, Cervical neuritis M54.12 [facility] [address] [address] 3027 Jul, Other chronic pain G89.29 [facility] [address] [place] [address] [id number] Jul, Dental caries K02.9 [facility] [address] [place] [address] 71800- 5870 Jul, Other chronic pain G89.29 [facility] [address] 5686 June, Other chronic pain G89.29 [facility] [address] [place] [address] [id number] 14 May, [address] [facility] [address], [place] [address]- 5400 07 May, 2016 Other chronic pain G89.29 [facility] [address] [place] [address] 577094- 8888 21 Apr, 2016 Cervical spinal stenosis M48.02 and Drug-induced constipation K59.03 [facility] [id number] [place] [address] 93295- 2713 13 [address], [address] [facility] [address] [place] [address] 33360- 2355 Apr, Other chronic pain G89.29 [facility] [id number] [place] [address] 241302- 3631 [address], [address] [facility] [address] [place] [address] 80362- 9651 Mar, [facility] [id number] [place] [address] 02189- 2950 10 Mar, 2016 Other chronic pain G89.29 [facility] [address] [place] [address] 50509- 1698 Feb, Other chronic pain G89.29 [facility] [address], [place] [address]- 0110 15 Jan, 2016 Other chronic pain G89.29 [facility] [address] [place] [address] 36087- 9627 30 Dec, 2015 [facility] [address] [place] [address] 60304- 0133 16 Dec, 2015 Other chronic pain G89.29 [facility] [id number] [place] [address] 417110- 1593 11 Dec, 2015 Cervical spinal stenosis M48.02 ; Encounter for immunization Z23 ; Polyneuropathy associated with underlying disease G63 and Erectile dysfunction due to arterial insufficiency N52.01 [facility] [address] [place] [address] 06886- 1942 Nov, [facility] [id number] [place] [address] 85245- 3561 Nov, [facility] [id number] [place] [address] 76701- 6599 Oct, [facility] [address] 38247- 4927 Sep, [facility] [address] 12868- 7390 Aug, [facility] [address] 66077- 3252 Jul, Other chronic pain G89.29 [facility] [address] [place] [address] 35200 -8008 Jul, Angioedema, initial encounter T78.3XXA and Dental abscess K04.7 [facility] [address] [place] [address] 67609- 5303 Jul, Leg pain M79.606 [place] [address] 13613- 1342 June, Other chronic pain G89.29 and Encounter for immunization Z23 [facility] [address] [place] [address] 26781- 0296 June, [facility] [address] [place] [address] 09747- 9694 May, Leg pain M79.606 [facility] [address] [place] [address] 73777- 3840 Apr, Leg pain M79.606 and Cervical spinal stenosis M48.02 [facility] [address] [place] [address] 26193- 6798 Apr, [facility] [address] [place] [address] 80484- 2507 Mar, High ankle sprain of left lower extremity S93.432A [facility] [address] [place] [address] 15585- 2240 Mar, [facility] [address] [place] [address] 13981- 3575 Mar, Left ankle pain M25.572 [facility] [address] [place] [address] 26050- 4259 Mar, [facility] [address] [place] [address] 38451- 7605 Mar, [facility] [address] [place] [address] 57193- 3192 Mar, Leg pain M79.606 [facility] [address] [place] [address] 97802- 5308 Mar, [facility] [address] [place] [address] 64904- 4070 Mar, Ankle pain M25.579 ; Cardiac disease I51.9 ; Obesity E66.9 ; Leg pain M79.606 ; HTN (hypertension) I10 ; Ingrowing nail L60.0 ; 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 and Foot pain, left M79.672 [facility] [id number] [place] [address] 47700- 9882 Feb, [facility] [address] [place] [address] 73323- 6624 Jan, [facility] [address] [place] [address] 92926- 5942 Dec, Cervical spinal stenosis M48.[address] [facility] [id number] [place] [address] 69053- 9711 Dec, [facility] [id number] [place] [address] 18179- 8714 Dec, [facility] [address] [facility] [id number] [place] [address]- 1716 Dec, [facility] [address] [facility] [facility] [id number] [place] [address]- 4207 Nov, [facility] [address] [facility] [address] [facility] [id number] [place] [address]- 8436 Nov, [facility] [address] [facility] [address] [facility] [id number] [place] [address]- 2488 Oct, [facility] [address] [facility] [address] [facility] [id number] [place] [address]- 7778 Oct, [facility] [address] [id number] [place] [address]- 8549 Oct, [facility] [address] [place] [address]- 1238 Oct, [facility] [id number] [place] [address]- 5727 Sep, [facility] [address] [place] [address]- 6495 Sep, [facility] [address] 9787 Sep, Spinal stenosis in cervical region 723.0 ; Essential hypertension, benign 401.1 and Erectile dysfunction 607.84 [facility] [address] [address]- 1016 Sep, [facility] [address] [facility] [address] [facility] [id number] [address]- 6924 Aug, [facility] [address] [address]- 8091 Aug, [facility] [id number] [address]- 2546 Jul, [facility] [id number] [address]- 3195 June, [facility] [address] [id number] [place] [address]- 6815 June, [facility] [address] [id number] [place] [address]- 6895 June, [facility] [address] [facility] [address] [facility] [id number] [place] [address]- 2242 June, [facility] [address] [facility] [address] [facility] [id number] [place] [address]- 1940 June, Spinal stenosis in cervical region 723.0 and Essential hypertension, benign 401.1 [facility] [address] [id number] [place] [address]- 2218 May, [facility] [address] [facility] [address] [facility] [id number] [place] [address]- 6547 May, [facility] [address] [place] [address]- 3000 Apr, [facility] [address] [id number] [place] [address]- 1040 Apr, [facility] [address] [id number] [place] [address]- 4190 Apr, [facility] [address] [facility] [facility] [id number] [place] [address]- 7929 Apr, [facility] [address] [id number] [place] [address]- 5652 Mar, [facility] [address] [id number] [place] [address]- 7553 Mar, [facility] [address] [id number] [place] [address]- 7540 Feb, [facility] [address] [id number] [place] 0088 Feb, [facility] [address] [facility] [facility] [id number] [place] 4578 Feb, [facility] [place] [facility] [address] [id number] [place] [address]- 8211 Feb, [facility] [place] [facility] [address] [id number] [place] [address]- 2510 Feb, [facility] [place] [facility] [address] [id number] [place] [address]- 8171 Jan, [facility] [place] [facility] [address] [id number] [place] [address]- 2969 Jan, [facility] [place] [facility] [address] [id number] [place] [address]- 7455 Jan, [facility] [place] [facility] [address] [id number] [place] [address]- 8392 Jan, [facility] [place] [facility] [address] [id number] [place] [address]- 2627 Dec, [facility] [place] [facility] [address] [id number] [place] [address]- 6067 Dec, [facility] [place] [facility] [address] [id number] [place] [address]- 0543 Nov, [facility] [place] [facility] [address] [id number] [place] [address]- 8133 Nov, [facility] [place] [facility] [address] [id number] [place] [address]- 5842 Oct, [facility] [place] [facility] [address] [id number] [place] [address]- 8569 Oct, [facility] [place] [facility] [address] [id number] [place] [address]- 5614 Oct, [facility] [place] [facility] [address] [id number] [place] [address]- 3482 Oct, [facility] [place] [facility] [address] [id number] [place] [address]- 5477 Sep, [facility] [place] [facility] [address] [id number] [place] [address]- 1804 Sep, [facility] [place] [facility] [address] [id number] [place] [address]- 9005 Jul, [facility] [place] [facility] [address] [id number] [place] [address]- 1124 Jul, [facility] [place] [facility] [address] [id number] [place] [address]- 1925 Jul, [facility] [place] [facility] [address] [id number] [place] [address]- 1849 Jul, [facility] [place] [facility] [address] [id number] [place] [address]- 4369 June, [facility] [place] [facility] [address] [id number] [place] [address]- 1078 June, [facility] [place] [facility] [address] [id number] [place] [address]- 9002 June, [facility] [place] [facility] [address] [id number] [place] [address]- 9500 June, [facility] [place] [facility] [address] [id number] [place] [address]- 8919 Mar, [facility] [place] [facility] [address] [id number] [place] [address]- 0861 Mar, [facility] [place] [facility] [address] [id number] [place] [address]- 9734 Mar, [facility] [place] [facility] [address] [id number] [place] [address]- 2248 Mar, [facility] [place] [facility] [address] [id number] [place] [address]- 8224 Mar, [facility] [place] [facility] [address] [id number] [place] [address]- 9388 Feb, [facility] [place] [facility] [address] [id number] [place] [address]- 4497 Feb, [facility] [place] [facility] [address] [id number] [place] [address]- 0116 Feb, [facility] [place] [facility] [address] [id number] [place] [address]- 4876 Feb, [facility] [place] [facility] [address] [id number] [place] [address]- 5837 Feb, [facility] [place] [facility] [address] [id number] [place] [address]- 1261 Feb, [facility] [place] [facility] [address] [id number] [place] [address]- 3046 Feb, [facility] [place] [facility] [address] [id number] [place] [address]- 9140 Feb, [facility] [place] [facility] [address] [id number] [place] [address]- 1656 Feb, [facility] [place] [facility] [address] [id number] [place] [address]- 9136 Feb, [facility] [place] [facility] [address] [id number] [place] [address]- 0170 Nov, [facility] [place] [facility] [address] [id number] [place] [address]- 9349 Nov, [facility] [place] [facility] [address] [id number] [place] [address]- 1139 Nov, [facility] [place] [facility] [address] [id number] [address]- 5569 Nov, [facility] [place] [facility] [address] [id number] [place] [address]- 0479 Nov, [facility] [place] [facility] [address] [id number] [place] [address]- 7550 Nov, [facility] [place] [facility] [address] [id number] [place] [address]- 1251 Aug, [facility] [place] [facility] [address] [id number], [place] [address]- 9110 Aug, [facility] [address] [id number] [place] [address]- 9964 Aug, 2012 [facility] [place] [facility] [address] [id number] [place] [address]- 5546 Aug, 2012 [facility] [place] [facility] [address] [id number] [place] [address]- 5783 08 May, 2012 [facility] [place] [facility] [address] [id number] [place] [address] 18 Apr, 2012 [facility] [address] [id number] [place] [address] Apr, [facility] [address] [id number] [place] [address] Jan, [facility] [address] [id number] [place] [address] Jan, [facility] [address] [id number] [place] [address] Jan, [facility] [address] [id number] [place] [address] Jan, [facility] [place] [facility] [address] [id number] [place] [address] Jan, [facility] [address] [id number] [place] [address] Jan, [facility] [place] [facility] [address] [id number] [place] [address] 17 Jan, 2012 [facility] [place] [facility] [address] [id number] [place] [address] 17 Jan, 2012 [facility] [place] [facility] [address] [id number] [place] [address] 12 Jan, 2012 [facility] [place] [facility] [address] [id number] [place] [address] 11 Jan, 2012 [facility] [place] [facility] [address] [id number] [place] [address] Jan, [facility] [place] [facility] [address] [id number] [place] [address] Jan, [facility] [place] [facility] [address] [id number] [place] [address] Jan, [facility] [place] [facility] [address] [id number] [place] [address] Dec, [facility] [place] [facility] [address] [id number] [place] [address] Dec, [facility] [place] [facility] [address] [id number] [place] [address] Dec, [facility] [place] [facility] [address] [id number] [place] [address] Sep, [facility] [place] [facility] [address] [id number] [place] [address] Sep, [facility] [place] [facility] [address] [id number] [place] [address] Sep, [facility] [place] [facility] [address] [id number] [place] [address] Aug, [facility] [place] [facility] [address] [id number] [place] [address] Aug, [facility] [place] [facility] [address] [id number] [place] [address] Aug, [facility] [place] [facility] [address] [id number] [place] [address] June, [facility] [place] [facility] [address] [id number] [place] [address] Apr, [facility] [place] [facility] [address] [id number] [place] [address] Apr, [facility] [place] [facility] [address] [id number] [place] [address] Mar, [facility] [place] [facility] [address] [id number] [place] [address] Feb, [facility] [place] [facility] [address] [id number] [place] [address] Feb, [facility] [place] [facility] [address] [id number] [place] [address] Jan, [facility] [place] [facility] [address] [id number] [place] [address] Jan, [facility] [place] [facility] [address] [id number] [place] [address] Dec, [facility] [place] [facility] [address] [id number] [place] [address] Dec, [facility] [place] [facility] [address] [id number] [place] [address] Dec, [facility] [place] [facility] [address] [id number] [address] Nov, [facility] [place] [facility] [address] [id number] [place] [address] Sep, [facility] [place] [facility] [address] [id number], [place] [address] Apr, [facility] [place] [facility] [address] [id number], [place] [address] Mar, [facility] [place] [facility] [address] [id number] [address] Jan, [facility] [place] [facility] [address] [id number] [place] [address] Dec, [facility] [place] [facility] [address] [id number], [place] [address] Nov, [facility] [place] [facility] [address] [id number] [place] [address] Sep, [facility] [place] [facility] [address] [facility] [address] [facility] [id number] [place] [address] Jul, [facility] [address] [facility] [id number] [place] [address] Feb, [facility] [address] [facility] [id number] [place] [address] Jan, IMMUNIZATIONS No Known Immunizations SOCIAL HISTORY Never Assessed REASON FOR VISIT Controlled Med Refill PLAN OF CARE VITAL SIGNS MEDICATIONS Medication Instructions Dosage Frequency Start Date End Date Duration Status Hydrocodone-Acetaminophen 7.5-325 MG Orally 3 times a day 1 tablet as needed Sep, 28 days Active RESULTS No Results PROCEDURES No Known procedures INSTRUCTIONS MEDICATIONS ADMINISTERED No Known Medications MEDICAL (GENERAL) HISTORY Type Description Date Medical History spinal compression fracture Medical History cardiovascular disease Medical History stent placed 03-07-15 Surgical History cardiac stent 03-07-15 Surgical History Cardiac stent 11/2015 Hospitalization History [place] with stent placement 03-06-15 Hospitalization History Cardiac Stent Collapsed/Heart attack 11/2015
--- OUTSIDE RECORDS SUMMARY | 2018-01-15 21:10 | XMS REPORT ---
Author Author ROB RAMIREZ [facility] Address [address] [place] [address] Care Team Providers Care Radioisotope Technologist Name Role Phone ROB RAMIREZ Unavailable PROBLEMS Type Condition ICD9-CM Code [id number] Code Onset Dates Condition Status SNOMED Code Problem Erectile dysfunction due to arterial insufficiency N52.01 Active 200149919 Problem Recurrent right knee instability M23.51 Active 330627086 Problem Other chronic pain G89.29 Active 88400642 Problem Lumbar radiculopathy, chronic M54.16 Active 089727608 Problem Right leg weakness R29.898 Active [id number] Problem Mixed hyperlipidemia E78.2 Active 441314029 Problem Morbid obesity E66.01 Active 938874092 Problem Coronary artery disease involving [place] coronary artery of [place] 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 Active 4108523368071 Problem Morbid (severe) obesity due to excess calories E66.01 Active 609526694 Problem Cervical spinal stenosis M48.02 Active 05576220 Problem Foot pain, left M79.672 Active 84546858 Problem HTN (hypertension) I10 Active 97470713 Problem Cardiac disease I51.9 Active 56401837 Problem Ingrowing nail L60.0 Active 837306682 Problem 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 Active 340724504 Problem Obesity E66.9 Active 326891645 Problem Polyneuropathy associated with underlying disease G63 Active 829437232 ALLERGIES No Information ENCOUNTERS Encounter Location Date Diagnosis [facility] [id number] [address] Oct, Lumbar radiculopathy, chronic M54.16 [facility] [address] [address] Sep, Cervical spinal stenosis M48.02 [facility] [address] [id number] [address] 36[address] Sep, Cervical spinal stenosis M48.02 [place] [address] [address] Sep, Lumbar radiculopathy, chronic M54.16 [facility] [id number] [place] [address] 51579- 3655 Sep, Lumbar radiculopathy, chronic M54.16 [place] [facility] [id number] [place] [address] 10527- 3301 Aug, Cervical spinal stenosis M48.02 [place] [facility] [id number] [place] [address] 64933- 9484 Aug, [place] [id number] [place] [address] 97307- 9825 Jul, Cervical spinal stenosis M48.02 [place] [facility] [id number] [place] [address] 60371- 0162 Jul, Medicare annual wellness visit, initial Z00.00 ; Morbid ( severe) obesity due to excess calories E66.01 ; Coronary artery disease involving [place] coronary artery of [place] 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 ; 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 ; Polyneuropathy associated with underlying disease G63 ; HTN (hypertension) I10 ; Mixed hyperlipidemia E78.2 ; BMI 50.0-59.9, adult Z68.43 and Encounter for immunization Z23 [place] [id number] [place] [address] 67816- 2275 Jul, Cervical spinal stenosis M48.02 ; HTN (hypertension) I10 ; Coronary artery disease involving [place] coronary artery of [place] 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 and Right leg weakness R29.898 [place] [facility] [id number] [place] [address] 54079- 4849 June, Cervical spinal stenosis M48.02 [place] [id number] [place] [address] 90635- 5921 June, Cervical spinal stenosis M48.02 [place] [facility] [id number] [place] [address] 59373- 0789 May, Cervical spinal stenosis M48.02 [facility] [facility] [id number] [place] [address] 85869- 9633 Apr, Cervical spinal stenosis M48.02 [facility] [id number] [place] [address] 73404 -9252 14 Mar, 2017 Neck pain on right side M54.2 and BMI 50.0-59.9, adult Z68.43 [place] [id number] [place] [address] 32682- 3489 06 Mar, 2017 Cervical spinal stenosis M48.02 [place] [id number] [place] [address] 31123- 1422 Feb, Cervical spinal stenosis M48.02 [place] [address] 80175- 3825 Feb, [facility] [id number] [place] [address] 09257- 0441 Feb, Morbid (severe) obesity due to excess calories E66.01 and Coronary artery disease involving [place] coronary artery of [place] 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 [place] [id number] [place] [address] 47714- 6728 Feb, Mixed hyperlipidemia E78.2 and HTN (hypertension) I10 [place] [id number] [place] [address] 90979- 5283 Feb, Cervical spinal stenosis M48.02 ; HTN (hypertension) I10 ; Mixed hyperlipidemia E78.2 ; Recurrent right knee instability M23.51 and Morbid obesity E66.01 [place] [id number] [place] [address] 73493- 0096 Jan, Other chronic pain G89.29 [place] [id number] [place] [address] 40596- 5376 Dec, Other chronic pain G89.29 [place] [address] [address] 6445 Nov, Other chronic pain G89.29 [facility] [id number] [place] [address] 90956- 9196 Oct, Other chronic pain G89.29 [facility] [address] [address]- 6556 Sep, Other chronic pain G89.29 [facility] [id number] [place] [address] 21254- 3788 Sep, Other chronic pain G89.29 [facility] [id number] [place] [address] 57945- 3637 Sep, Tenderness of left calf M79.662 and Cervical spinal stenosis M48.02 [facility] [id number] [place] [address] 36845- 0667 Aug, Other chronic pain G89.29 [facility] [address] [place] [address] 72447- 6191 Aug, Cervical radiculopathy M54.12 [facility] [id number] [place] [address] 50345 -8151 Aug, Cervical neuritis M54.12 [facility] [address] [address]- 1656 Jul, Other chronic pain G89.29 [facility] [address] [place] [address] [id number] Jul, Dental caries K02.9 [facility] [address] [place] [address] 08558- 0397 Jul, Other chronic pain G89.29 [facility] [address] [address]871 June, Other chronic pain G89.29 [facility] [address] [place] [address] [id number] 14 May, 2016 Dental examination Z01.20 [facility] [address] [address]- 3040 07 May, 2016 Other chronic pain G89.29 [facility] [address] [place] [address] 325837- 9325 21 Apr, 2016 Cervical spinal stenosis M48.02 and Drug-induced constipation K59.03 [facility] [id number] [place] [address] 47483- 8675 13 Apr, 2016 [facility] [id number] [place] [address] 57044- 1914 Apr, Other chronic pain G89.29 [facility] [id number] [place] [address] 327123- 9358 10 Apr, 2016 [facility] [address] [place] [address] 76527- 2040 Mar, [facility] [id number] [place] [address] 40813- 3739 10 Mar, 2016 Other chronic pain G89.29 [facility] [address] [place] [address] 54141- 5935 Feb, Other chronic pain G89.29 [facility] [address] [address]- 3587 15 Jan, 2016 Other chronic pain G89.29 [facility] [address] [place] [address] 29676- 8630 30 Dec, 2015 [facility] [address] [place] [address] 76987- 9695 16 Dec, 2015 Other chronic pain G89.29 [facility] [id number] [place] [address] 591791- 8922 11 Dec, 2015 Cervical spinal stenosis M48.02 ; Encounter for immunization Z23 ; Polyneuropathy associated with underlying disease G63 and Erectile dysfunction due to arterial insufficiency N52.01 [facility] [id number] [place] [address] 71838- 1042 Nov, [facility] [id number] [place] [address] 16209- 1342 Nov, [facility] [id number] [place] [address] 38879- 8162 Oct, [facility] [address] 07452- 6334 Sep, [facility] [address] 67225- 5483 Aug, [facility] [address] 55070- 4684 Jul, Other chronic pain G89.29 [facility] [id number] [place] [address] 03883 -3769 Jul, Angioedema, initial encounter T78.3XXA and Dental abscess K04.7 [facility] [id number] [place] [address] 45575- 9844 Jul, Leg pain M79.606 [place] [address] 72047- 5438 June, Other chronic pain G89.29 and Encounter for immunization Z23 [facility] [id number] [place] [address] 97165- 4512 June, [facility] [id number] [place] [address] 34855- 0623 May, Leg pain M79.606 [facility] [id number] [place] [address] 19171- 6446 Apr, Leg pain M79.606 and Cervical spinal stenosis M48.02 [facility] [id number] [place] [address] 47087- 8611 Apr, [facility] [id number] [place] [address] 62814- 8047 Mar, High ankle sprain of left lower extremity S93.432A [facility] [id number] [place] [address] 04417- 0119 Mar, [facility] [id number] [place] [address] 21578- 1949 Mar, Left ankle pain M25.572 [facility] [id number] [place] [address] 81242- 7646 Mar, [facility] [id number] [place] [address] 59517- 0266 Mar, [facility] [id number] [place] [address] 67513- 4647 Mar, Leg pain M79.606 [facility] [id number] [place] [address] 73812- 0778 Mar, [facility] [id number] [place] [address] 27321- 0173 Mar, Ankle pain M25.579 ; Cardiac disease I51.9 ; Obesity E66.9 ; Leg pain M79.606 ; HTN (hypertension) I10 ; Ingrowing nail L60.0 ; 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 and Foot pain, left M79.672 [facility] [id number] [place] [address] 63688- 4238 Feb, [facility] [id number] [place] [address] 49955- 4990 Jan, [facility] [id number] [place] [address] 26971- 7382 Dec, Cervical spinal stenosis M48.02 and Hypertension I10 [facility] [id number] [place] [address] 18177- 2142 Dec, [facility] [id number] [place] [address] 75275- 0234 Dec, [facility] [address] [facility] [id number] [place] [address]- 3264 Dec, [facility] [address] [facility] [id number] [place] [address]- 5524 Nov, [facility] [address] [facility] [id number] [place] [address]- 3796 Nov, [facility] [address] [facility] [id number] [place] [address]- 4128 Oct, [facility] [address] [facility] [id number] [place] [address]- 1388 Oct, [facility] [id number] [address]- 0372 Oct, [facility] [address] [address]- 3312 Oct, [facility] [id number] [address]- 8754 Sep, [facility] [address] [address]- 2009 Sep, [facility] [address] 4130 Sep, Spinal stenosis in cervical region 723.0 ; Essential hypertension, benign 401.1 and Erectile dysfunction 607.84 [facility] [address] [address]- 2666 Sep, [facility] [address] [facility] [id number] [place] [address]- 4522 Aug, [facility] [address] [address]- 1210 Aug, [facility] [id number] [address]- 2546 Jul, [facility] [id number] [address]- 6616 June, [facility] [address] [id number] [place] [address]- 6694 June, [facility] [address] [id number] [place] [address]- 6019 June, [facility] [address] [facility] [id number] [place] [address]- 2627 June, [facility] [address] [facility] [id number] [place] [address]- 9450 June, Spinal stenosis in cervical region 723.0 and Essential hypertension, benign 401.1 [facility] [address] [id number] [place] [address]- 1616 May, [facility] [address] [facility] [id number] [place] [address]- 2465 May, [facility] [address] [address]- 4074 Apr, [facility] [address] [id number] [place] [address]- 9807 Apr, [facility] [id number] [address]- 2352 Apr, [facility] [address] [facility] [id number] [place] [address]- 6143 Apr, [facility] [address] [id number] [place] [address]- 3438 Mar, [facility] [address] [id number] [place] [address]- 4593 Mar, [facility] [address] [id number] [place] [address]- 0242 Feb, [facility] [address] [id number] [place]- 3478 Feb, [facility] [address] [facility] [id number] [place] 7235 Feb, [facility] [place] [facility] [address] [id number] [place] [address]- 4338 Feb, [facility] [place] [facility] [address] [id number] [place] [address]- 3763 Feb, [facility] [place] [facility] [address] [id number] [place] [address]- 1293 Jan, [facility] [place] [facility] [address] [id number] [place] [address]- 0016 Jan, [facility] [place] [facility] [address] [id number] [place] [address]- 4648 Jan, [facility] [place] [facility] [address] [id number] [place] [address]- 4073 Jan, [facility] [place] [facility] [address] [id number] [place] [address]- 6845 Dec, [facility] [place] [facility] [address] [id number] [place] [address]- 3384 Dec, [facility] [place] [facility] [address] [id number] [place] [address]- 0929 Nov, [facility] [place] [facility] [address] [id number] [place] [address]- 3477 Nov, [facility] [place] [facility] [address] [id number] [place] [address]- 8690 Oct, [facility] [place] [facility] [address] [id number] [place] [address]- 0308 Oct, [facility] [place] [facility] [address] [id number] [place] [address]- 8214 Oct, [facility] [place] [facility] [address] [id number] [place] [address]- 6433 Oct, [facility] [place] [facility] [address] [id number] [place] [address]- 0970 Sep, [facility] [place] [facility] [address] [id number] [place] [address]- 9562 Sep, [facility] [place] [facility] [address] [id number] [place] [address]- 9443 Jul, [facility] [place] [facility] [address] [id number] [place] [address]- 1640 Jul, [facility] [place] [facility] [address] [id number] [place] [address]- 3012 Jul, [facility] [place] [facility] [address] [id number] [place] [address]- 2888 Jul, [facility] [place] [facility] [address] [id number] [place] [address]- 7196 June, [facility] [place] [facility] [address] [id number] [place] [address]- 0894 June, [facility] [place] [facility] [address] [id number] [place] [address]- 5379 June, [facility] [place] [facility] [address] [id number] [place] [address]- 2653 June, [facility] [place] [facility] [address] [id number] [place] [address]- 8411 Mar, [facility] [place] [facility] [address] [id number] [place] [address]- 5296 Mar, [facility] [place] [facility] [address] [id number] [place] [address]- 2299 Mar, [facility] [place] [facility] [address] [id number] [place] [address]- 9704 Mar, [facility] [place] [facility] [address] [id number] [place] [address]- 5963 Mar, [facility] [place] [facility] [address] [id number] [place] [address]- 3227 Feb, [facility] [place] [facility] [address] [id number] [place] [address]- 0618 Feb, [facility] [place] [facility] [address] [id number] [place] [address]- 9757 Feb, [facility] [place] [facility] [address] [id number] [place] [address]- 4569 Feb, [facility] [place] [facility] [address] [id number] [place] [address]- 9772 Feb, [facility] [place] [facility] [address] [id number] [place] [address]- 1570 Feb, [facility] [place] [facility] [address] [id number] [place] [address]- 2604 Feb, [facility] [place] [facility] [address] [id number] [place] [address]- 9477 Feb, [facility] [place] [facility] [address] [id number] [place] [address]- 6551 Feb, [facility] [place] [facility] [address] [id number] [place] [address]- 3348 Feb, [facility] [place] [facility] [address] [id number] [place] [address]- 7311 Nov, [facility] [place] [facility] [address] [id number] [place] [address]- 2689 Nov, [facility] [place] [facility] [address] [id number] [place] [address]- 8432 Nov, [facility] [place] [facility] [address] [id number] [place] [address]- 8261 Nov, [facility] [place] [facility] [address] [id number] [place] [address]- 7822 Nov, [facility] [place] [facility] [address] [id number] [place] [address]- 1928 Nov, [facility] [place] [facility] [address] [id number] [place] [address]- 4266 Aug, [facility] [place] [facility] [address] [id number] [place] [address]- 1973 Aug, [facility] [address] [id number] [place] [address]- 1348 Aug, 2012 [facility] [place] [facility] [address] [id number] [place] [address]- 4356 Aug, 2012 [facility] [place] [facility] [address] [id number] [place] [address]- 0539 08 May, 2012 [facility] [place] [facility] [address] [id number] [place] [address]- 7362 18 Apr, 2012 [facility] [address] [id number] [place] [address]- 5686 Apr, [facility] [address] [id number] [place] 7484 Jan, [facility] [address] [id number] [place] [address]- 0686 Jan, [facility] [address] [id number] [place] [address]- 5571 Jan, [facility] [address] [id number] [place] [address]- 9449 Jan, [facility] [place] [facility] [address] [id number] [place] [address] Jan, [facility] [address] [id number] [place] [address] Jan, [facility] [place] [facility] [address] [id number] [place] [address] 17 Jan, 2012 [facility] [place] [facility] [address] [id number] [place] [address] 17 Jan, 2012 [facility] [place] [facility] [address] [id number] [place] [address] 12 Jan, 2012 [facility] [place] [facility] [address] [id number] [place] [address] 11 Jan, 2012 [facility] [place] [facility] [address] [id number] [place] [address] Jan, [facility] [place] [facility] [address] [id number] [place] [address] Jan, [facility] [place] [facility] [address] [id number] [place] [address] Jan, [facility] [place] [facility] [address] [id number] [place] [address] Dec, [facility] [place] [facility] [address] [id number] [place] [address] Dec, [facility] [place] [facility] [address] [id number] [place] [address] Dec, [facility] [place] [facility] [address] [id number] [place] [address] Sep, [facility] [place] [facility] [address] [id number] [place] [address] Sep, [facility] [place] [facility] [address] [id number] [place] [address] Sep, [facility] [place] [facility] [address] [id number] [place] [address] Aug, [facility] [place] [facility] [address] [id number] [place] [address] Aug, [facility] [place] [facility] [address] [id number] [place] [address] Aug, [facility] [place] [facility] [address] [id number] [place] [address] June, [facility] [place] [facility] [address] [id number] [place] [address] Apr, [facility] [place] [facility] [address] [id number] [place] [address] Apr, [facility] [place] [facility] [address] [id number] [place] [address] Mar, [facility] [place] [facility] [address] [id number] [place] [address] Feb, [facility] [place] [facility] [address] [id number] [place] [address] Feb, [facility] [place] [facility] [address] [id number] [place] [address] Jan, [facility] [place] [facility] [address] [id number] [place] [address] Jan, [facility] [place] [facility] [address] [id number] [place] [address] Dec, [facility] [place] [facility] [address] [id number] [place] [address] Dec, [facility] [place] [facility] [address] [id number] [place] [address] Dec, [facility] [place] [facility] [address] [id number] [place] [address] Nov, [facility] [place] [facility] [address] [id number] [place] [address] Sep, [facility] [place] [facility] [address] [id number] [place] [address] Apr, [facility] [place] [facility] [address] [id number] [place] [address] Mar, [facility] [place] [facility] [address] [id number] [place] [address] Jan, [facility] [place] [facility] [address] [id number] [place] [address] Dec, [facility] [place] [facility] [address] [id number] [place] [address] Nov, [facility] [place] [facility] [address] [id number] [place] [address] Sep, [facility] [place] [facility] [address] [facility] [id number] [place] [address] Jul, [facility] [address] [facility] [id number] [place] [address] Feb, [facility] [address] [facility] [id number] [place] [id number] Jan, IMMUNIZATIONS No Known Immunizations SOCIAL HISTORY Never Assessed REASON FOR VISIT Controlled Med Refill PLAN OF CARE VITAL SIGNS MEDICATIONS Medication Instructions Dosage Frequency Start Date End Date Duration Status Hydrocodone-Acetaminophen 7.5-325 MG Orally 3 times a day 1 tablet as needed 8h Aug, 28 days Active RESULTS No Results PROCEDURES No Known procedures INSTRUCTIONS MEDICATIONS ADMINISTERED No Known Medications MEDICAL (GENERAL) HISTORY Type Description Date Medical History spinal compression fracture Medical History cardiovascular disease Medical History stent placed 03-07-15 Surgical History cardiac stent 03-07-15 Surgical History Cardiac stent 11/2015 Hospitalization History [place] with stent placement 03-06-15 Hospitalization History Cardiac Stent Collapsed/Heart attack 11/2015
--- OUTSIDE RECORDS SUMMARY | 2018-01-15 21:10 | XMS REPORT ---
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 Name Role Phone ROB RAMIREZ Unavailable PROBLEMS Type Condition ICD9-CM Code YAQ34-WH Code Onset Dates Condition Status SNOMED Code Problem Erectile dysfunction due to arterial insufficiency N52.01 Active 751690712 Problem Recurrent right knee instability M23.51 Active 340672469 Problem Other chronic pain G89.29 Active 03814778 Problem Lumbar radiculopathy, chronic M54.16 Active 057461526 Problem Right leg weakness R29.898 Active [id number] Problem Mixed hyperlipidemia E78.2 Active 312101636 Problem Morbid obesity E66.01 Active 431485469 Problem Coronary artery disease involving bois forte coronary artery of bois forte 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 Active 4073806188862 Problem Morbid (severe) obesity due to excess calories E66.01 Active 244551994 Problem Cervical spinal stenosis M48.02 Active 54414867 Problem Foot pain, left M79.672 Active 61953847 Problem HTN (hypertension) I10 Active 53801311 Problem Cardiac disease I51.9 Active 26565714 Problem Ingrowing nail L60.0 Active 984199324 Problem 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 Active 030943374 Problem Obesity E66.9 Active 802445101 Problem Polyneuropathy associated with underlying disease G63 Active 010527820 ALLERGIES No Information ENCOUNTERS Encounter Location Date Diagnosis [facility] [id number], [place] [address] Sep, Cervical spinal stenosis M48.02 [facility] [id number], [place] [address] 1642 Sep, Cervical spinal stenosis M48.02 [facility] [id number] [address] Sep, Lumbar radiculopathy, chronic M54.16 [facility] [address], [place] [address] Sep, Lumbar radiculopathy, chronic M54.16 [facility] [address], [place] [address] Aug, Cervical spinal stenosis M48.02 [facility] [id number] [place] [address] 48084- 4417 Aug, [facility] [id number] [place] [address] 11616- 1534 Jul, Cervical spinal stenosis M48.02 [facility] [id number] [place] [address] 93445- 4122 Jul, Medicare annual wellness visit, initial Z00.00 ; Morbid ( severe) obesity due to excess calories E66.01 ; Coronary artery disease involving bois forte coronary artery of bois forte 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 ; 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 ; Polyneuropathy associated with underlying disease G63 ; HTN (hypertension) I10 ; Mixed hyperlipidemia E78.2 ; BMI 50.0-59.9, adult Z68.43 and Encounter for immunization Z23 [facility] [address], [place] [address] Jul, Cervical spinal stenosis M48.02 ; HTN (hypertension) I10 ; Coronary artery disease involving bois forte coronary artery of bois forte 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 and Right leg weakness R29.898 [facility] [address], [place] [address] 4747 June, Cervical spinal stenosis M48.02 [facility] [id number] [place] [address] 70214- 2086 June, Cervical spinal stenosis M48.02 [facility] [address], [place] [address] 5050 May, Cervical spinal stenosis M48.02 [facility] [id number] [place] [address] 13806- 2066 07 Apr, 2017 Cervical spinal stenosis M48.02 [facility] [id number] [place] [address] 92991 -8178 14 Mar, 2017 Neck pain on right side M54.2 and BMI 50.0-59.9, adult Z68.43 [place] [address] [address]70- 1541 06 Mar, 2017 Cervical spinal stenosis M48.02 [place] [address] 55865- 2754 Feb, Cervical spinal stenosis M48.02 [place] [address] 08085- 8240 Feb, [place] [address] 44621- 3276 Feb, Morbid (severe) obesity due to excess calories E66.01 and Coronary artery disease involving bois forte coronary artery of bois forte 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 [facility] [id number] [place] [address] 28789- 6152 05 Feb, 2017 Mixed hyperlipidemia E78.2 and HTN (hypertension) I10 [place] [id number] [place] [address] 26851- 1178 Feb, Cervical spinal stenosis M48.02 ; HTN (hypertension) I10 ; Mixed hyperlipidemia E78.2 ; Recurrent right knee instability M23.51 and Morbid obesity E66.01 [facility] [id number] [place] [address] 57129- 9496 Jan, Other chronic pain G89.29 [facility] [address] 08075- 2816 16 Dec, 2016 Other chronic pain G89.29 [facility] [id number] [place] [address] 82868- 9831 20 Nov, 2016 Other chronic pain G89.29 [facility] [id number] [place] [address] 57148- 9043 Oct, Other chronic pain G89.29 [facility] [id number] [place] [address] 44341- 3167 Sep, Other chronic pain G89.29 [facility] [id number] [place] [address] 10202- 8671 Sep, Other chronic pain G89.29 [facility] [id number] [place] [address] 76483- 5778 Sep, Tenderness of left calf M79.662 and Cervical spinal stenosis M48.02 [facility] [id number] [place] [address] 33118- 6849 Aug, Other chronic pain G89.29 [facility] [id number] [place] [address] 72929- 6570 Aug, Cervical radiculopathy M54.12 [facility] [address] [place] [address] 47916 -7828 Aug, Cervical neuritis M54.12 [facility] [id number] [place] [address] 18179- 2730 Jul, Other chronic pain G89.29 [facility] [address] [place] [address] [id number] Jul, Dental caries K02.9 [facility] [id number] [place] [address] 11065- 8466 Jul, Other chronic pain G89.29 [facility] [address] [place] [address] 46008- 7771 June, Other chronic pain G89.29 [facility] [id number] [place] [address] [id number] May, Dental examination Z01.20 [facility] [id number] [place] [address] 23379- 5831 May, Other chronic pain G89.29 [facility] [id number] [place] [address] 88083- 4506 Apr, Cervical spinal stenosis M48.02 and Drug-induced constipation K59.03 [facility] [id number] [place] [address] 35981- 0426 13 Apr, 2016 [facility] [address] 48664- 8706 Apr, Other chronic pain G89.29 [facility] [id number] [place] [address] 98562- 4926 Apr, [facility] [address] 97306- 8366 Mar, [facility] [id number] [place] [address] 49748- 6424 Mar, Other chronic pain G89.29 [facility] [id number] [place] [address] 51856- 0927 Feb, Other chronic pain G89.29 [facility] [id number] [place] [address] 74618- 8579 Jan, Other chronic pain G89.29 [facility] [id number] [place] [address] 15212- 5184 30 Dec, 2015 [facility] [id number] [place] [address] 44477- 2544 16 Dec, 2015 Other chronic pain G89.29 [facility] [id number] [place] [address] 46092- 0914 11 Dec, 2015 Cervical spinal stenosis M48.02 ; Encounter for immunization Z23 ; Polyneuropathy associated with underlying disease G63 and Erectile dysfunction due to arterial insufficiency N52.01 [facility] [id number] [place] [address] 74152- 4615 24 Nov, 2015 [facility] [address] 97039- 5686 Nov, [facility] [id number] [place] [address] 13741- 6822 Oct, [facility] [address] 92220- 7292 Sep, [facility] [address] 19742- 8971 Aug, [facility] [address] 64185- 9796 Jul, Other chronic pain G89.29 [facility] [address] 27720 -3487 Jul, Angioedema, initial encounter T78.3XXA and Dental abscess K04.7 [place] [address] 38637- 1926 Jul, Leg pain M79.606 [place] [address] 26943- 7410 June, Other chronic pain G89.29 and Encounter for immunization Z23 [place] [address] 12390- 0055 June, [facility] [address] 66578- 9152 May, Leg pain M79.606 [place] [address] 13651- 7091 Apr, Leg pain M79.606 and Cervical spinal stenosis M48.02 [place] [address] 24414- 1569 Apr, [place] [address] 95677- 6267 18 Mar, 2015 High ankle sprain of left lower extremity S93.432A [place] [address] 85635- 4932 Mar, [facility] [address] [place] [address] 92449- 9914 Mar, Left ankle pain M25.572 [facility] [id number] [place] [address] 57931- 9322 Mar, [facility] [id number] [place] [address] 00329- 7974 Mar, [facility] [id number] [place] [address] 26240- 8235 Mar, Leg pain M79.606 [facility] [id number] [place] [address] 71683- 9081 Mar, [facility] [id number] [place] [address] 28127- 6283 Mar, Ankle pain M25.579 ; Cardiac disease I51.9 ; Obesity E66.9 ; Leg pain M79.606 ; HTN (hypertension) I10 ; Ingrowing nail L60.0 ; 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 and Foot pain, left M79.672 [facility] [id number] [place] [address] 10758- 5145 Feb, [facility] [id number] [place] [address] 36078- 9713 Jan, [facility] [id number] [place] [address] 27026- 6445 Dec, Cervical spinal stenosis M48.02 and Hypertension I10 [facility] [id number] [place] [address] 26873- 8755 Dec, [facility] [id number] [place] [address] 87586- 2056 Dec, [facility] [id number] [place] [address] 05832- 1661 Dec, [facility] [id number] [place] [address]- 8786 Nov, [facility] [address] 3932 Nov, [facility] [address] [facility] [id number] [place] [address]- 0968 Oct, [facility] [address] 8537 Oct, [facility] [address] [facility] [id number] [place] [address]- 9750 Oct, [facility] [id number] [place] [address], [place] 6120 Oct, [facility] [address] [place] [address]- 8435 Sep, [facility] [id number] [place] [address], [place] [address]- 6511 Sep, [facility] [address], [place] [address]- 1532 Sep, Spinal stenosis in cervical region 723.0 ; Essential hypertension, benign 401.1 and Erectile dysfunction 607.84 [facility] [address], [place] [address]- 5432 Sep, [facility] [address], [place] [address]- 4976 Aug, [facility] [address], [place] [address]- 2231 Aug, [facility] [address] 3257 Jul, [facility] [address] 4358 June, [facility] [address] [place] [address]- 6535 June, [facility] [address] [facility] [id number] [place] [address]- 2520 June, [facility] [id number] [place] [address]- 8832 June, [facility] [address] [place] [address]- 4910 June, Spinal stenosis in cervical region 723.0 and Essential hypertension, benign 401.1 [facility] [address] [id number], [place] [address]- 5312 May, [facility] [address] [facility] [id number] [place] [address]- 4518 May, [facility] [id number] [address]- 4986 Apr, [facility] [address] [place] [address]- 1095 Apr, [facility] [address] [id number] [place] [address]- 3624 Apr, [facility] [address] [id number] [place] [address]- 0762 Apr, [facility] [id number] [place] [address]- 3656 Mar, [facility] [address] [id number], [place] [address]- 2875 Mar, [facility] [address] [facility] [id number], [place] [address]- 5484 Feb, [facility] [address] [id number] [place] [address]- 6165 Feb, [facility] [place] [facility] [address] [facility] [id number], [place] [address]- 8188 Feb, [facility] [address] [facility] [id number] [place] 4196 Feb, [facility] [place] [facility] [address] [id number] [place] [address]- 2121 Feb, [facility] [place] [facility] [address] [id number] [place] [address]- 3734 Jan, [facility] [place] [facility] [address] [id number] [place] 0867 Jan, [facility] [place] [facility] [address] [id number] [place] 3184 Jan, [facility] [place] [facility] [address] [id number] [place] [address]- 1669 Jan, [facility] [place] [facility] [address] [id number] [place] 0735 Dec, [facility] [place] [facility] [address] [id number] [place] [address]- 0024 Dec, [facility] [place] [facility] [address] [id number] [place] [address]- 8746 Nov, [facility] [place] [facility] [address] [id number] [place] [address]- 6257 Nov, [facility] [place] [facility] [address] [id number] [place] [address]- 9677 Oct, [facility] [place] [facility] [address] [id number] [place] [address]- 2542 Oct, [facility] [place] [facility] [address] [id number] [place] [address]- 2304 Oct, [facility] [place] [facility] [address] [id number] [place] [address]- 2696 Oct, [facility] [place] [facility] [address] [id number] [place] [address]- 0009 Sep, [facility] [place] [facility] [address] [id number] [place] [address]- 0730 Sep, [facility] [place] [facility] [address] [id number] [place] [address]- 7592 Jul, [facility] [place] [facility] [address] [id number] [place] [address]- 7376 Jul, [facility] [place] [facility] [address] [id number] [place] [address]- 2961 Jul, [facility] [place] [facility] [address] [id number] [place] [address]- 0658 Jul, [facility] [place] [facility] [address] [id number] [place] [address]- 2349 June, [facility] [place] [facility] [address] [id number] [place] [address]- 5266 June, [facility] [place] [facility] [address] [id number] [place] [address]- 5319 June, [facility] [place] [facility] [address] [id number] [place] [address]- 8395 June, [facility] [place] [facility] [address] [id number] [place] [address]- 5146 Mar, [facility] [place] [facility] [address] [id number] [place] [address]- 6328 Mar, [facility] [place] [facility] [address] [id number] [place] [address]- 7134 Mar, [facility] [place] [facility] [address] [id number] [place] [address]- 3042 Mar, [facility] [place] [facility] [address] [id number] [place] [address]- 0343 Mar, [facility] [place] [facility] [address] [id number] [place] [address]- 3821 Feb, [facility] [place] [facility] [address] [id number] [place] [address]- 7771 Feb, [facility] [place] [facility] [address] [id number] [place] [address]- 2332 Feb, [facility] [place] [facility] [address] [id number] [place] [address]- 1372 Feb, [facility] [address] [id number] [place] [address]- 9179 Feb, [facility] [place] [facility] [address] [id number] [place] [address]- 9223 Feb, [facility] [place] [facility] [address] [id number] [place] [address]- 0815 Feb, [facility] [place] [facility] [address] [id number] [place] [address]- 9454 Feb, [facility] [place] [facility] [address] [id number] [place] [address]- 7187 Feb, [facility] [place] [facility] [address] [id number] [place] [address]- 3946 Feb, [facility] [address] [id number] [place] [address]- 4197 Nov, [facility] [address] [id number] [place] [address]- 8519 Nov, [facility] [place] [facility] [address] [id number] [place] [address]- 8870 Nov, [facility] [place] [facility] [address] [id number] [place] [address]- 0745 Nov, [facility] [place] [facility] [address] [id number] [place] [address]- 6262 Nov, [facility] [place] [facility] [address] [id number] [place] [address]- 5593 Nov, [facility] [place] [facility] [address] [id number] [place] [address]- 5432 Aug, [facility] [place] [facility] [address] [id number] [place] [address]- 2546 Aug, [facility] [place] [facility] [address] [id number] [place] [address]- 1061 Aug, [facility] [place] [facility] [address] [id number] [place] [address] 2540 Aug, [facility] [place] [facility] [address] [id number] [place] [address]- 1876 May, [facility] [place] [facility] [address] [id number] [place] [address]- 7878 18 Apr, 2012 [facility] [place] [facility] [address] [id number] [place] [address]- 2541 Apr, [facility] [address] [id number] [place] [address] Jan, [facility] [place] [facility] [address] [id number] [place] [address]- 7563 Jan, [facility] [address] [id number] [place] [address]- 6146 Jan, [facility] [address] [id number] [place] [address]- 1904 Jan, [facility] [place] [facility] [address] [id number] [place] [address]- 9553 Jan, [facility] [place] [facility] [address] [id number] [place] 5305 Jan, [facility] [place] [facility] [address] [id number] [place] [address]- 0081 Jan, [facility] [place] [facility] [address] [id number] [place] [address]- 8867 17 Jan, 2012 [facility] [place] [facility] [address] [id number] [place] [address]- 9430 12 Jan, 2012 [facility] [place] [facility] [address] [id number] [place] [address]- 9606 Jan, [facility] [place] [facility] [address] [id number] [place] [address]- 1871 Jan, [facility] [place] [facility] [address] [id number] [place] [address]- 9411 Jan, [facility] [place] [facility] [address] [id number] [place] [address] Jan, [facility] [place] [facility] [address] [id number] [place] [address] Dec, [facility] [place] [facility] [address] [id number] [place] [address] Dec, [facility] [place] [facility] [address] [id number] [place] [address] Dec, [facility] [place] [facility] [address] [id number] [place] [address] Sep, [facility] [place] [facility] [address] [id number] [place] [address] Sep, [facility] [place] [facility] [address] [id number] [place] [address] Sep, [facility] [place] [facility] [address] [id number] [place] [address] Aug, [facility] [place] [facility] [address] [id number] [place] [address] Aug, [facility] [place] [facility] [address] [id number] [place] [address] Aug, [facility] [place] [facility] [address] [id number] [place] [address] June, [facility] [place] [facility] [address] [id number] [place] [address] Apr, [facility] [place] [facility] [address] [id number] [place] [address] Apr, [facility] [place] [facility] [address] [id number] [place] [address] Mar, [facility] [place] [facility] [address] [id number] [place] [address] Feb, [facility] [place] [facility] [address] [id number] [place] [address] Feb, [facility] [place] [facility] [address] [id number] [place] [address] 22 Jan, 2011 [facility] [place] [facility] [address] [id number] [place] [address] Jan, [facility] [place] [facility] [address] [id number] [place] [address] Dec, [facility] [place] [facility] [address] [id number] [place] [address] Dec, [facility] [place] [facility] [address] [id number] [place] [address] Dec, [facility] [place] [facility] [address] [id number] [place] [address] Nov, [facility] [place] [facility] [address] [id number] [place] [address] 15 Sep, 2010 [facility] [place] [facility] [address] [id number] [place] [address] Apr, [facility] [place] [facility] [address] [id number] [place] [address] 16 Mar, 2010 [facility] [place] [facility] [address] [id number] [place] [address] 07 Jan, 2010 [facility] [place] [facility] [address] [id number] [place] [address] 17 Dec, 2009 [facility] [place] [facility] [address] [id number] [place] [address] Nov, [facility] [place] [facility] [address] [id number] [place] [address] 19 Sep, 2009 [facility] [place] [facility] [address] [id number] [place] [address] 16 Jul, 2009 [facility] [place] [facility] [address] [id number] [place] [id number] Feb, [facility] [address] [facility] [id number] [place] [id number] Jan, IMMUNIZATIONS No Known Immunizations SOCIAL HISTORY Never Assessed REASON FOR VISIT BP Reduction Challenge Enroll PLAN OF CARE VITAL SIGNS MEDICATIONS Unknown Medications RESULTS No Results PROCEDURES No Known procedures INSTRUCTIONS MEDICATIONS ADMINISTERED No Known Medications MEDICAL (GENERAL) HISTORY Type Description Date Medical History spinal compression fracture Medical History cardiovascular disease Medical History stent placed 03-07-15 Surgical History cardiac stent 03-07-15 Surgical History Cardiac stent 11/2015 Hospitalization History [place] with stent placement 03-06-15 Hospitalization History Cardiac Stent Collapsed/Heart attack 11/2015
--- OUTSIDE RECORDS SUMMARY | 2018-01-15 21:11 | XMS REPORT ---
Author Author ROB RAMIREZ Organization [facility] Address [address] [place] [address] Care Team Providers Care Barrelhead Inspector Name Role Phone ROB RAMIREZ Unavailable PROBLEMS Type Condition ICD9-CM Code [id number] Code Onset Dates Condition Status SNOMED Code Problem Erectile dysfunction due to arterial insufficiency N52.01 Active 662853691 Problem Recurrent right knee instability M23.51 Active 628877237 Problem Other chronic pain G89.29 Active 20354519 Problem Lumbar radiculopathy, chronic M54.16 Active 904820746 Problem Right leg weakness R29.898 Active [id number] Problem Mixed hyperlipidemia E78.2 Active 083376310 Problem Morbid obesity E66.01 Active 486223802 Problem 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 Active 0108163982114 Problem Morbid (severe) obesity due to excess calories E66.01 Active 592326950 Problem Cervical spinal stenosis M48.02 Active 43058959 Problem Foot pain, left M79.672 Active 19611929 Problem HTN (hypertension) I10 Active 82267450 Problem Cardiac disease I51.9 Active 36203652 Problem Ingrowing nail L60.0 Active 974116979 Problem 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 Active 967957007 Problem Obesity E66.9 Active 030998151 Problem Polyneuropathy associated with underlying disease G63 Active 083699403 ALLERGIES No Information ENCOUNTERS Encounter Location Date Diagnosis [facility] [id number] [address] Sep, Cervical spinal stenosis M48.02 [facility] [address], [place] [address] Sep, Cervical spinal stenosis M48.02 [facility] [address] [id number], [place] [address] Sep, Lumbar radiculopathy, chronic M54.16 [facility] [address], [place] [address] Sep, Lumbar radiculopathy, chronic M54.16 [facility] [address], [place] [address] Aug, Cervical spinal stenosis M48.02 [address] [facility] [id number] [place] [address] 77564- 5693 Aug, [place] [id number] [place] [address] 48114- 9172 Jul, Cervical spinal stenosis M48.02 [place] [facility] [id number] [place] [address] 86471- 4390 Jul, Medicare annual wellness visit, initial Z00.00 ; Morbid ( severe) obesity due to excess calories E66.01 ; 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 ; 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 ; Polyneuropathy associated with underlying disease G63 ; HTN (hypertension) I10 ; Mixed hyperlipidemia E78.2 ; BMI 50.0-59.9, adult Z68.43 and Encounter for immunization Z23 [facility] [facility] [address] [address] Jul, Cervical spinal stenosis M48.02 ; HTN (hypertension) I10 ; 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 and Right leg weakness R29.898 [place] [address], [place] [address] June, Cervical spinal stenosis M48.02 [place] [facility] [id number] [place] [address] 64649- 9082 June, Cervical spinal stenosis M48.02 [place] [facility] [address] [address] 8792 May, Cervical spinal stenosis M48.02 [place] [id number] [place] [address] 85902- 6092 07 Apr, 2017 Cervical spinal stenosis M48.02 [facility] [id number] [place] [address] 39513 -5106 14 Mar, 2017 Neck pain on right side M54.2 and BMI 50.0-59.9, adult Z68.43 [place] [address] 6[address]30- 8140 06 Mar, 2017 Cervical spinal stenosis M48.02 [place] [address] 90870- 8819 Feb, Cervical spinal stenosis M48.02 [place] [address] 66114- 6237 Feb, [place] [address] 42110- 6736 Feb, Morbid (severe) obesity due to excess calories E66.01 and 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 [place] [id number] [place] [address] 16405- 7373 05 Feb, 2017 Mixed hyperlipidemia E78.2 and HTN (hypertension) I10 [place] [id number] [place] [address] 83299- 9507 Feb, Cervical spinal stenosis M48.02 ; HTN (hypertension) I10 ; Mixed hyperlipidemia E78.2 ; Recurrent right knee instability M23.51 and Morbid obesity E66.01 [place] [id number] [place] [address] 88974- 1160 Jan, Other chronic pain G89.29 [place] [address] 97326- 2146 16 Dec, 2016 Other chronic pain G89.29 [place] [id number] [place] [address] 28113- 7296 20 Nov, 2016 Other chronic pain G89.29 [place] [id number] [place] [address] 96384- 2515 Oct, Other chronic pain G89.29 [facility] [id number] [place] [address] 55491- 9911 Sep, Other chronic pain G89.29 [facility] [id number] [place] [address] 72477- 2177 Sep, Other chronic pain G89.29 [facility] [id number] [place] [address] 53349- 2409 Sep, Tenderness of left calf M79.662 and Cervical spinal stenosis M48.02 [facility] [id number] [place] [address] 38170- 9768 Aug, Other chronic pain G89.29 [facility] [id number] [place] [address] 70414- 5111 Aug, Cervical radiculopathy M54.12 [facility] [address] [place] [address] 53488 -1324 Aug, Cervical neuritis M54.12 [facility] [id number] [place] [address] 04803- 0384 Jul, Other chronic pain G89.[address] [facility] [address] [place] [address] [id number] Jul, Dental caries K02.9 [facility] [id number] [place] [address] 16837- 5323 Jul, Other chronic pain G89.29 [facility] [address] [place] [address] 62879- 1865 June, Other chronic pain G89.[address] [facility] [id number] [place] [address] [id number] May, Dental examination Z01.20 [facility] [id number] [place] [address] 57908- 3121 May, Other chronic pain G89.29 [facility] [id number] [place] [address] 69422- 9378 Apr, Cervical spinal stenosis M48.02 and Drug-induced constipation K59.03 [facility] [id number] [place] [address] 47291- 8046 13 Apr, 2016 [facility] [address] 06560- 5156 Apr, Other chronic pain G89.29 [facility] [id number] [place] [address] 33548- 7084 Apr, [facility] [address] 93681- 4511 Mar, [facility] [id number] [place] [address] 07245- 9472 Mar, Other chronic pain G89.29 [facility] [id number] [place] [address] 70447- 3126 Feb, Other chronic pain G89.29 [facility] [id number] [place] [address] 76414- 6451 Jan, Other chronic pain G89.29 [facility] [id number] [place] [address] 56835- 9890 30 Dec, 2015 [facility] [id number] [place] [address] 78973- 2545 16 Dec, 2015 Other chronic pain G89.29 [facility] [id number] [place] [address] 67224- 4305 11 Dec, 2015 Cervical spinal stenosis M48.02 ; Encounter for immunization Z23 ; Polyneuropathy associated with underlying disease G63 and Erectile dysfunction due to arterial insufficiency N52.01 [facility] [id number] [place] [address] 76017- 6560 24 Nov, 2015 [facility] [address] 25112- 8729 Nov, [facility] [id number] [place] [address] 62799- 8348 Oct, [facility] [address] 57604- 0852 Sep, [facility] [address] 44917- 3871 Aug, [facility] [address] 81894- 3823 Jul, Other chronic pain G89.29 [facility] [address] 74119 -2831 Jul, Angioedema, initial encounter T78.3XXA and Dental abscess K04.7 [place] [address] 28231- 6991 Jul, Leg pain M79.606 [place] [address] 03290- 1700 June, Other chronic pain G89.29 and Encounter for immunization Z23 [place] [address] 19736- 6404 June, [facility] [address] 21361- 1945 May, Leg pain M79.606 [place] [address] 82721- 4848 Apr, Leg pain M79.606 and Cervical spinal stenosis M48.02 [place] [address] 46841- 3282 Apr, [place] [address] 26765- 1450 18 Mar, 2015 High ankle sprain of left lower extremity S93.432A [place] [address] 08454- 2288 Mar, [facility] [address] [place] [address] 81981- 1646 Mar, Left ankle pain M25.572 [facility] [id number] [place] [address] 48265- 9755 Mar, [facility] [id number] [place] [address] 33931- 6218 Mar, [facility] [id number] [place] [address] 43061- 1340 Mar, Leg pain M79.606 [facility] [id number] [place] [address] 02245- 2920 Mar, [facility] [id number] [place] [address] 99206- 1802 Mar, Ankle pain M25.579 ; Cardiac disease I51.9 ; Obesity E66.9 ; Leg pain M79.606 ; HTN (hypertension) I10 ; Ingrowing nail L60.0 ; 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 and Foot pain, left M79.672 [facility] [id number] [place] [address] 31759- 3397 Feb, [facility] [id number] [place] [address] 67190- 9985 Jan, [facility] [id number] [place] [address] 13417- 8310 Dec, Cervical spinal stenosis M48.02 and Hypertension I10 [facility] [id number] [place] [address] 05948- 2379 Dec, [facility] [id number] [place] [address] 99295- 5358 Dec, [facility] [id number] [place] [address] 18158- 2981 Dec, [facility] [address] [id number] [place] [address]- 0525 Nov, [facility] [address] [place] [address]903 Nov, [facility] [address] [facility] [id number] [place] [address]- 8223 Oct, [facility] [address] [place] 9400 Oct, [facility] [address] [facility] [id number] [place] [address]- 8382 Oct, [facility] [id number] [place] [address], [place] 9678 Oct, [facility] [address] [place] [address]- 9884 Sep, [facility] [id number] [place] [address], [place] [address]- 3542 Sep, [facility] [address] [address]- 5324 Sep, Spinal stenosis in cervical region 723.0 ; Essential hypertension, benign 401.1 and Erectile dysfunction 607.84 [facility] [address], [place] [address]- 2841 Sep, [facility] [address], [place] [address]- 5388 Aug, [facility] [address] [address]- 0233 Aug, [facility] [address] 3290 Jul, [facility] [address] 0866 June, [facility] [address] [place] [address]- 9888 June, [facility] [address] [facility] [id number] [place] [address]- 3762 June, [facility] [id number] [place] [address]- 0630 June, [facility] [address] [place] [address]- 8906 June, Spinal stenosis in cervical region 723.0 and Essential hypertension, benign 401.1 [facility] [address] [id number] [address]- 5513 May, [facility] [address] [facility] [id number] [place] [address]- 7885 May, [facility] [id number] [address]- 2042 Apr, [facility] [address] [place] [address]- 3418 Apr, [facility] [address] [id number] [place] [address]- 2024 Apr, [facility] [address] [id number] [place] [address]- 5068 Apr, [facility] [id number] [place] [address]- 5115 Mar, [facility] [address] [id number], [place] [address]- 0753 Mar, [facility] [address] [facility] [id number] [address]- 1205 Feb, [facility] [address] [id number] [place] [address]- 4596 Feb, [facility] [place] [facility] [address] [facility] [id number], [place] [address]- 8443 Feb, [facility] [address] [facility] [id number] [place] 6090 Feb, [facility] [place] [facility] [address] [id number] [place] [address]- 1485 Feb, [facility] [place] [facility] [address] [id number] [place] [address]- 6223 Jan, [facility] [place] [facility] [address] [id number] [place] 9879 Jan, [facility] [place] [facility] [address] [id number] [place] 3070 Jan, [facility] [place] [facility] [address] [id number] [place] [address]- 7305 Jan, [facility] [place] [facility] [address] [id number] [place] 6016 Dec, [facility] [place] [facility] [address] [id number] [place] [address]- 7519 Dec, [facility] [place] [facility] [address] [id number] [place] [address]- 2837 Nov, [facility] [place] [facility] [address] [id number] [place] [address]- 7949 Nov, [facility] [place] [facility] [address] [id number] [place] [address]- 7009 Oct, [facility] [place] [facility] [address] [id number] [place] [address]- 1495 Oct, [facility] [place] [facility] [address] [id number] [place] [address]- 2438 Oct, [facility] [place] [facility] [address] [id number] [place] [address]- 9037 Oct, [facility] [place] [facility] [address] [id number] [place] [address]- 1717 Sep, [facility] [place] [facility] [address] [id number] [place] [address]- 7543 Sep, [facility] [place] [facility] [address] [id number] [place] [address]- 6605 Jul, [facility] [place] [facility] [address] [id number] [place] [address]- 5334 Jul, [facility] [place] [facility] [address] [id number] [place] [address]- 9475 Jul, [facility] [place] [facility] [address] [id number] [place] [address]- 8057 Jul, [facility] [place] [facility] [address] [id number] [place] [address]- 1426 June, [facility] [place] [facility] [address] [id number] [place] [address]- 1950 June, [facility] [place] [facility] [address] [id number] [place] [address]- 0137 June, [facility] [place] [facility] [address] [id number] [place] [address]- 7094 June, [facility] [place] [facility] [address] [id number] [place] [address]- 8682 Mar, [facility] [place] [facility] [address] [id number] [place] [address]- 3982 Mar, [facility] [place] [facility] [address] [id number] [place] [address]- 6237 Mar, [facility] [place] [facility] [address] [id number] [place] [address]- 9217 Mar, [facility] [place] [facility] [address] [id number] [place] [address]- 1430 Mar, [facility] [place] [facility] [address] [id number] [place] [address]- 3986 Feb, [facility] [place] [facility] [address] [id number] [place] [address]- 5266 Feb, [facility] [place] [facility] [address] [id number] [place] [address]- 1440 Feb, [facility] [place] [facility] [address] [id number] [place] [address]- 6850 Feb, [facility] [address] [id number] [place] [address]- 1116 Feb, [facility] [place] [facility] [address] [id number] [place] [address]- 6789 Feb, [facility] [place] [facility] [address] [id number] [place] [address]- 6445 Feb, [facility] [place] [facility] [address] [id number] [place] [address]- 9728 Feb, [facility] [place] [facility] [address] [id number] [place] [address]- 4317 Feb, [facility] [place] [facility] [address] [id number] [place] [address]- 9257 Feb, [facility] [address] [id number] [place] [address]- 2313 Nov, [facility] [address] [id number] [place] [address]- 2116 Nov, [facility] [place] [facility] [address] [id number] [place] [address]- 5324 Nov, [facility] [place] [facility] [address] [id number] [place] [address]- 9924 Nov, [facility] [place] [facility] [address] [id number] [place] [address]- 9013 Nov, [facility] [place] [facility] [address] [id number] [place] [address]- 1349 Nov, [facility] [place] [facility] [address] [id number] [place] [address]- 6963 Aug, [facility] [place] [facility] [address] [id number] [place] [address]- 2546 Aug, [facility] [place] [facility] [address] [id number] [place] [address]- 3066 Aug, [facility] [place] [facility] [address] [id number] [place] [address] 2540 Aug, [facility] [place] [facility] [address] [id number] [place] [address]- 7806 May, [facility] [place] [facility] [address] [id number] [place] [address]- 4023 18 Apr, 2012 [facility] [place] [facility] [address] [id number] [place] [address]- 2549 Apr, [facility] [address] [id number] [place] [address]- 5625 Jan, [facility] [place] [facility] [address] [id number] [place] [address]- 3986 Jan, [facility] [address] [id number] [place] [address]- 8081 Jan, [facility] [address] [id number] [place] [address]- 6299 Jan, [facility] [place] [facility] [address] [id number] [place] [address]- 2045 Jan, [facility] [place] [facility] [address] [id number] [place] 6788 Jan, [facility] [place] [facility] [address] [id number] [place] [address]- 6493 Jan, [facility] [place] [facility] [address] [id number] [place] [address]- 5172 17 Jan, 2012 [facility] [place] [facility] [address] [id number] [place] [address]- 5871 12 Jan, 2012 [facility] [place] [facility] [address] [id number] [place] [address]- 0648 Jan, [facility] [place] [facility] [address] [id number] [place] [address]- 4305 Jan, [facility] [place] [facility] [address] [id number] [place] [address] Jan, [facility] [place] [facility] [address] [id number] [place] [address] Jan, [facility] [place] [facility] [address] [id number] [place] [address] Dec, [facility] [place] [facility] [address] [id number] [place] [address] Dec, [facility] [place] [facility] [address] [id number] [place] [address] Dec, [facility] [place] [facility] [address] [id number] [place] [address] Sep, [facility] [place] [facility] [address] [id number] [place] [address] Sep, [facility] [place] [facility] [address] [id number] [place] [address] Sep, [facility] [place] [facility] [address] [id number] [place] [address] Aug, [facility] [place] [facility] [address] [id number] [place] [address] Aug, [facility] [place] [facility] [address] [id number] [place] [address] Aug, [facility] [place] [facility] [address] [id number] [place] [address] June, [facility] [place] [facility] [address] [id number] [place] [address] Apr, [facility] [place] [facility] [address] [id number] [place] [address] Apr, [facility] [place] [facility] [address] [id number] [place] [address] Mar, [facility] [place] [facility] [address] [id number] [place] [address] Feb, [facility] [place] [facility] [address] [id number] [place] [address] Feb, [facility] [place] [facility] [address] [id number] [place] [address] 22 Jan, 2011 [facility] [place] [facility] [address] [id number] [place] [address] Jan, [facility] [place] [facility] [address] [id number] [place] [address] Dec, [facility] [place] [facility] [address] [id number] [place] [address] Dec, [facility] [place] [facility] [address] [id number] [place] [address] Dec, [facility] [place] [facility] [address] [id number] [place] [address] Nov, [facility] [place] [facility] [address] [id number] [place] [address] 15 Sep, 2010 [facility] [place] [facility] [address] [id number] [place] [address] Apr, [facility] [place] [facility] [address] [id number] [place] [address] 16 Mar, 2010 [facility] [place] [facility] [address] [id number] [place] [address] 07 Jan, 2010 [facility] [place] [facility] [address] [id number] [place] [address] 17 Dec, 2009 [facility] [place] [facility] [address] [id number] [place] [address] Nov, [facility] [place] [facility] [address] [id number] [place] [address] 19 Sep, 2009 [facility] [place] [facility] [address] [id number] [place] [address] 16 Jul, 2009 [facility] [place] [facility] [address] [id number] [place] [address] Feb, [facility] [address] [facility] [id number] [place] [address] Jan, IMMUNIZATIONS No Known Immunizations SOCIAL HISTORY Never Assessed REASON FOR VISIT Hydrocodone due for 7/2 PLAN OF CARE VITAL SIGNS MEDICATIONS Medication [...]
--- OUTSIDE RECORDS SUMMARY | 2018-01-15 21:12 | XMS REPORT ---
Author Author ROB RAMIREZ Organization [facility] Address [address] [place] [address] Care Team Providers Care Sr. Strategic Sourcing Manager Name Role Phone ROB RAMIREZ Unavailable PROBLEMS Type Condition ICD9-CM Code [id number] Code Onset Dates Condition Status SNOMED Code Problem Erectile dysfunction due to arterial insufficiency N52.01 Active 855382744 Problem Recurrent right knee instability M23.51 Active 051619478 Problem Other chronic pain G89.29 Active 59625851 Problem Lumbar radiculopathy, chronic M54.16 Active 871413972 Problem Right leg weakness R29.898 Active [id number] Problem Mixed hyperlipidemia E78.2 Active 002551057 Problem Morbid obesity E66.01 Active 825898557 Problem Coronary artery disease involving enterprise coronary artery of enterprise 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 Active 9762119088627 Problem Morbid (severe) obesity due to excess calories E66.01 Active 756324128 Problem Cervical spinal stenosis M48.02 Active 19461794 Problem Foot pain, left M79.672 Active 48672645 Problem HTN (hypertension) I10 Active 68396341 Problem Cardiac disease I51.9 Active 75621402 Problem Ingrowing nail L60.0 Active 178856091 Problem 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 Active 748908866 Problem Obesity E66.9 Active 933661645 Problem Polyneuropathy associated with underlying disease G63 Active 154053014 ALLERGIES Substance Reaction Event Type Date Status Metoprolol Tartrate fatigue Drug Allergy Jul, Active ENCOUNTERS Encounter Location Date Diagnosis [facility] [id number], [place] [address] Sep, Lumbar radiculopathy, chronic M54.16 [facility] [id number], [place] [address] Sep, Lumbar radiculopathy, chronic M54.16 [place] [id number] [place] [address] 31886- 6693 Aug, Cervical spinal stenosis M48.02 [place] [id number] [place] [address] 68596- 5704 Aug, [place] [id number] [place] [address] 07604- 6488 Jul, Cervical spinal stenosis M48.02 [place] [id number] [place] [address] 26118- 6873 Jul, Medicare annual wellness visit, initial Z00.00 ; Morbid ( severe) obesity due to excess calories E66.01 ; Coronary artery disease involving enterprise coronary artery of enterprise 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 ; 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 ; Polyneuropathy associated with underlying disease G63 ; HTN (hypertension) I10 ; Mixed hyperlipidemia E78.2 ; BMI 50.0-59.9, adult Z68.43 and Encounter for immunization Z23 [place] [id number] [place] [address] 83690- 3067 Jul, Cervical spinal stenosis M48.02 ; HTN (hypertension) I10 ; Coronary artery disease involving enterprise coronary artery of enterprise 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 and Right leg weakness R29.898 [place] [id number] [place] [address] 98031- 8996 June, Cervical spinal stenosis M48.02 [place] [id number] [place] [address] 79869- 3756 June, Cervical spinal stenosis M48.02 [place] [id number] [place] [address] 13693- 1435 May, Cervical spinal stenosis M48.02 [place] [id number] [place] [address] 41324- 8674 Apr, Cervical spinal stenosis M48.[address] [facility] [address] [place] [address] 88749 -0607 Mar, Neck pain on right side M54.2 and BMI 50.0-59.9, adult Z68.43 [place] [address] 06212- 6571 06 Mar, 2017 Cervical spinal stenosis M48.02 [place] [id number] [place] [address] 87125- 0252 Feb, Cervical spinal stenosis M48.02 [place] [address] 58746- 9707 Feb, [place] [address] 29876- 1861 Feb, Morbid (severe) obesity due to excess calories E66.01 and Coronary artery disease involving enterprise coronary artery of enterprise 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 [place] [id number] [place] [address] 85886- 9001 Feb, Mixed hyperlipidemia E78.2 and HTN (hypertension) I10 [place] [address] 13201- 4378 Feb, Cervical spinal stenosis M48.02 ; HTN (hypertension) I10 ; Mixed hyperlipidemia E78.2 ; Recurrent right knee instability M23.51 and Morbid obesity E66.01 [place] [id number] [place] [address] 81419- 9484 Jan, Other chronic pain G89.29 [place] [id number] [place] [address] 09507- 9622 Dec, Other chronic pain G89.29 [place] [id number] [place] [address] 40909- 4065 Nov, Other chronic pain G89.29 [place] [id number] [place] [address] 92034- 1412 Oct, Other chronic pain G89.29 [place] [id number] [place] [address] 42911- 2916 Sep, Other chronic pain G89.29 [facility] [id number] [place] [address] 00589- 1241 Sep, Other chronic pain G89.29 [facility] [id number] [place] [address] 61971- 2265 Sep, Tenderness of left calf M79.662 and Cervical spinal stenosis M48.02 [facility] [address] 22303- 0571 Aug, Other chronic pain G89.29 [facility] [id number] [place] [address] 70306- 5027 Aug, Cervical radiculopathy M54.12 [facility] [id number] [place] [address] 68061 -3739 Aug, Cervical neuritis M54.12 [facility] [address] 92338- 8760 Jul, Other chronic pain G89.29 [facility] [id number] [place] [address] [id number] Jul, Dental caries K02.9 [facility] [id number] [place] [address] 56888- 9549 Jul, Other chronic pain G89.29 [facility] [id number] [place] [address] 79938- 6766 June, Other chronic pain G89.29 [facility] [id number] [place] [address] [id number] May, Dental examination Z01.20 [facility] [address] 90638- 2552 May, Other chronic pain G89.29 [facility] [id number] [place] [address] 21617- 7389 Apr, Cervical spinal stenosis M48.02 and Drug-induced constipation K59.03 [facility] [address], [place] [address]- 8869 13 Apr, 2016 [facility] [id number] [place] [address] 65123- 7271 Apr, Other chronic pain G89.29 [facility] [address] [address]- 6415 10 Apr, 2016 [facility] [id number] [place] [address] 55130- 6959 Mar, [facility] [address] [place] [address] 68051- 7087 Mar, Other chronic pain G89.29 [facility] [id number] [place] [address] 10621- 0322 Feb, Other chronic pain G89.29 [facility] [id number] [place] [address] 44677- 6272 Jan, Other chronic pain G89.29 [facility] [id number] [place] [address] 77565- 6440 Dec, [facility] [id number] [place] [address] 74166- 5757 16 Dec, 2015 Other chronic pain G89.29 [facility] [id number] [place] [address] 22326- 6932 Dec, Cervical spinal stenosis M48.02 ; Encounter for immunization Z23 ; Polyneuropathy associated with underlying disease G63 and Erectile dysfunction due to arterial insufficiency N52.01 [facility] [address], [place] [address]- 5893 Nov, [facility] [id number] [place] [address] 36771- 3126 04 Nov, 2015 [facility] [address] [place] [address] 97929- 7462 Oct, [facility] [id number] [place] [address] 97927- 2467 Sep, [facility] [id number] [place] [address] 32199- 6646 Aug, [facility] [address] 22823- 8443 Jul, Other chronic pain G89.29 [facility] [address] 56378 -8520 Jul, Angioedema, initial encounter T78.3XXA and Dental abscess K04.7 [facility] [address] 94375- 4343 Jul, Leg pain M79.606 [place] [address] 36205- 5122 June, Other chronic pain G89.29 and Encounter for immunization Z23 [place] [address] 63318- 3134 June, [place] [address] 81055- 2251 May, Leg pain M79.606 [place] [address] 71317- 0267 Apr, Leg pain M79.606 and Cervical spinal stenosis M48.02 [place] [address] 47342- 9009 Apr, [place] [id number] [place] [address] 53928- 4338 Mar, High ankle sprain of left lower extremity S93.432A [place] [address] 78379- 2400 15 Mar, 2015 [place] [id number] [place] [address] 19414- 6575 Mar, Left ankle pain M25.572 [place] [address] [place] [address]- 3586 Mar, [facility] [id number] [place] [address] 54593- 2166 Mar, [facility] [id number] [place] [address] 76386- 2527 Mar, Leg pain M79.606 [facility] [address] 09494- 6362 Mar, [facility] [id number] [place] [address] 11976- 3216 Mar, Ankle pain M25.579 ; Cardiac disease I51.9 ; Obesity E66.9 ; Leg pain M79.606 ; HTN (hypertension) I10 ; Ingrowing nail L60.0 ; 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 and Foot pain, left M79.672 [facility] [id number] [place] [address] 42119- 1680 Feb, [facility] [id number] [place] [address] 47552- 1933 Jan, [facility] [id number] [place] [address] 77888- 3972 Dec, Cervical spinal stenosis M48.02 and Hypertension I10 [facility] [id number] [place] [address] 66589- 3167 Dec, [facility] [id number] [place] [address] 12051- 8204 Dec, [facility] [id number] [place] [address] 54336- 8228 Dec, [facility] [id number] [place] [address] 20145- 4150 Nov, [facility] [id number] [place] [address] 71573- 8466 Nov, [facility] [id number] [place] [address]- 9666 Oct, [facility] [address] [facility] [id number] [place] [address]- 0460 Oct, [facility] [address] [facility] [id number] [place] [address]- 0508 Oct, [facility] [id number] [place] [address], [place] [address]- 1152 Oct, [facility] [address] [facility] [id number] [place] [address]- 7749 Sep, [facility] [id number] [place] [address], [place] [address]- 1775 Sep, [facility] [address], [place] [address]- 4548 Sep, Spinal stenosis in cervical region 723.0 ; Essential hypertension, benign 401.1 and Erectile dysfunction 607.84 [facility] [address], [place] [address]- 8805 Sep, [facility] [address], [place] [address]- 6188 Aug, [facility] [address], [place] [address]- 5993 Aug, [facility] [address], [place] [address]- 9263 Jul, [facility] [address], [place] [address]- 4021 June, [facility] [id number], [place] [address]- 1195 June, [facility] [address], [place] [address]- 7268 June, [facility] [id number] 7905 June, [facility] [address], [place] [address]- 3358 June, Spinal stenosis in cervical region 723.0 and Essential hypertension, benign 401.1 [facility] [address], [place] [address]- 7915 14 May, 2014 [facility] [address] [place] [address]- 4136 May, [facility] [address] [facility] [id number] [address]- 4281 16 Apr, 2014 [facility] [address] [facility] [id number] [place] [address]- 2264 Apr, [facility] [address] [place] [address]- 1530 Apr, [facility] [address], [place] [address]- 0976 Apr, [facility] [address] [place] [address]- 9241 Mar, [facility] [address] [place] [address]- 7209 Mar, [facility] [address] [place] [address]- 8765 Feb, [facility] [address], [place] [address]- 2194 Feb, [facility] [address], [place] [address]- 7285 Feb, [facility] [address], [place] [address]- 2630 Feb, [facility] [address], [place] [address]- 9155 Feb, [facility] [id number], [place] [address]- 9758 Jan, [facility] [place] [facility] [address] [id number] [place] [address]- 9654 17 Jan, 2014 [facility] [place] [facility] [address] [id number] [place] 2624 Jan, [facility] [place] [facility] [address] [id number] [place] 2597 Jan, [facility] [place] [facility] [address] [id number] [place] [address]- 6031 Dec, [facility] [place] [facility] [address] [id number] [place] [address]- 4602 Dec, [facility] [place] [facility] [address] [id number] [place] 6521 Nov, [facility] [place] [facility] [address] [id number] [place] 2006 Nov, [facility] [place] [facility] [address] [id number] [place] [address]- 5679 Oct, [facility] [place] [facility] [address] [id number] [place] [address]- 8059 Oct, [facility] [place] [facility] [address] [id number] [place] [address]- 4722 Oct, [facility] [place] [facility] [address] [id number] [place] [address]- 7841 Oct, [facility] [place] [facility] [address] [id number] [place] [address]- 8307 Sep, [facility] [place] [facility] [address] [id number] [place] 4805 Sep, [facility] [place] [facility] [address] [id number] [place] [address]- 4430 Jul, [facility] [place] [facility] [address] [id number] [place] [address]- 7658 Jul, [facility] [place] [facility] [address] [id number] [place] [address]- 1963 Jul, [facility] [place] [facility] [address] [id number] [place] [address]- 0339 Jul, [facility] [place] [facility] [address] [id number] [place] [address]- 3658 June, [facility] [place] [facility] [address] [id number] [place] [address]- 4359 June, [facility] [place] [facility] [address] [id number] [place] [address]- 7576 June, [facility] [place] [facility] [address] [id number] [place] [address]- 0226 June, [facility] [place] [facility] [address] [id number] [place] [address]- 7743 Mar, [facility] [place] [facility] [address] [id number] [place] [address]- 7888 Mar, [facility] [place] [facility] [address] [id number] [place] [address]- 9347 Mar, [facility] [place] [facility] [address] [id number] [place] [address]- 6951 Mar, [facility] [place] [facility] [address] [id number] [place] [address]- 0976 Mar, [facility] [place] [facility] [address] [id number] [place] [address]- 4139 Feb, [facility] [place] [facility] [address] [id number] [place] [address]- 3204 Feb, [facility] [place] [facility] [address] [id number] [place] [address]- 8896 Feb, [facility] [place] [facility] [address] [id number] [place] [address]- 3310 Feb, [facility] [place] [facility] [address] [id number] [place] [address]- 8996 Feb, [facility] [place] [facility] [address] [id number] [place] [address]- 2546 Feb, [facility] [address] [id number] [place] [address]- 8701 Feb, [facility] [place] [facility] [address] [id number] [place] [address] 2546 Feb, [facility] [place] [facility] [address] [id number] [place] [address]- 6910 Feb, [facility] [place] [facility] [address] [id number] [place] [address]- 6282 Feb, [facility] [place] [facility] [address] [id number] [place] [address]- 7410 Nov, [facility] [place] [facility] [address] [id number] [place] [address]- 8403 Nov, [facility] [place] [facility] [address] [id number] [place] [address]- 2986 Nov, [facility] [address] [id number] [place] [address]- 8747 Nov, [facility] [place] [facility] [address] [id number] [place] [address]- 0559 Nov, [facility] [place] [facility] [address] [id number] [place] [address]- 0927 Nov, [facility] [place] [facility] [address] [id number] [place] [address]- 8013 Aug, [facility] [place] [facility] [address] [id number] [place] [address]- 2547 Aug, [facility] [place] [facility] [address] [id number] [place] [address]- 3116 Aug, [facility] [place] [facility] [address] [id number] [place] [address]- 2546 Aug, [facility] [place] [facility] [address] [id number] [place] [address]- 9731 May, [facility] [address] [id number] [place] [address]- 9017 18 Apr, 2012 [facility] [place] [facility] [address] [id number] [place] [address]- 7886 11 Apr, 2012 [facility] [place] [facility] [address] [id number] [place] [address]- 1484 17 Jan, 2012 [facility] [place] [facility] [address] [id number] [place] [address]- 7256 17 Jan, 2012 [facility] [place] [facility] [address] [id number] [place] [address]- 6220 17 Jan, 2012 [facility] [place] [facility] [address] [id number] [place] [address]- 9186 Jan, [facility] [place] [facility] [address] [id number] [place] [address]- 3217 17 Jan, 2012 [facility] [place] [facility] [address] [id number] [place] [address]- 6517 17 Jan, 2012 [facility] [place] [facility] [address] [id number] [place] [address]- 2974 17 Jan, 2012 [facility] [place] [facility] [address] [id number] [place] [address]- 2591 17 Jan, 2012 [facility] [place] [facility] [address] [id number] [place] [address]- 1840 12 Jan, 2012 [facility] [place] [facility] [address] [id number] [place] [address]- 4165 11 Jan, 2012 [facility] [place] [facility] [address] [id number] [place] [address]- 5929 11 Jan, 2012 [facility] [place] [facility] [address] [id number] [place] [address]- 9006 10 Jan, 2012 [facility] [place] [facility] [address] [id number] [place] [address]- 6727 10 Jan, 2012 [facility] [place] [facility] [address] [id number] [place] [address] Dec, [facility] [address] [id number] [place] [address] Dec, [facility] [place] [facility] [address] [id number] [place] [address] Dec, [facility] [place] [facility] [address] [id number] [place] [address] Sep, [facility] [place] [facility] [address] [id number] [place] [address] Sep, [facility] [place] [facility] [address] [id number] [place] [address] Sep, [facility] [place] [facility] [address] [id number] [place] [address] Aug, [facility] [place] [facility] [address] [id number] [place] [address] Aug, [facility] [place] [facility] [address] [id number] [place] [address] Aug, [facility] [place] [facility] [address] [id number] [place] [address] June, [facility] [place] [facility] [address] [id number] [place] [address] Apr, [facility] [place] [facility] [address] [id number] [place] [address] Apr, [facility] [place] [facility] [address] [id number] [place] [address] Mar, [facility] [place] [facility] [address] [id number] [place] [address] Feb, [facility] [place] [facility] [address] [id number] [place] [address] Feb, [facility] [place] [facility] [address] [id number] [place] [address] Jan, [facility] [place] [facility] [address] [facility] [id number] [address] Jan, [facility] [address] [facility] [id number], [place] [address] Dec, [facility] [address] [facility] [id number], [place] [address] Dec, [facility] [address] [facility] [id number] [place] [address] Dec, [facility] [address] [facility] [id number] [place] [address] Nov, [facility] [address] [facility] [id number] [place] [address], [place] [address] 15 Sep, 2010 [facility] [id number] [address] Apr, [facility] [id number] [address] 16 Mar, 2010 [facility] [id number], [place] [address] Jan, [facility] [id number], [place] [address] Dec, [facility] [id number], [place] [address] Nov, [facility] [id number], [place] [address] Sep, [facility] [address] [id number], [place] [address] Jul, [facility] [id number], [place] [address] Feb, [facility] [address] [id number], [place] [address] Jan, IMMUNIZATIONS Vaccine Route Administration Date Status PPSV23 (PNEUMOVAX) IM Intramuscular July 18, 2017 Administered SOCIAL HISTORY Never Assessed REASON FOR VISIT Medicare AWV - Initial Visit JAZIEL-BHARGAVI PLAN OF CARE Activity Details Follow Up 1 Year Reason: VITAL SIGNS Height 75 in 2017-07-18 Weight 429 lbs 2017-07-18 Temperature 98.8 degrees Fahrenheit 2017-07-18 Heart Rate 74 bpm 2017-07-18 Respiratory Rate 20 2017-07-18 BMI 53.62 kg/m2 2017-07-18 Blood pressure systolic 140 mmHg 2017-07-18 Blood pressure diastolic 86 mmHg 2017-07-18 MEDICATIONS Medication Instructions Dosage Frequency Start Date End Date Duration Status Metoprolol Tartrate 25 MG Orally Twice a day 1 tablet with food 12h Active Ambien 10 mg Orally Once a day 1 tablet at bedtime as needed 24h Jul, Active Nitroglycerin 0.4 MG Active Baclofen 20 MG TAKE ONE TABLET BY MOUTH FOUR TIMES DAILY WITH FOOD OR MILK 30 Active Naprosyn 500 mg Orally 2 times a day, pc 1 tablet as needed 30 Active Hydrocodone-Acetaminophen 7.5-325 MG Orally 3 times a day 1 tablet as needed 8h Jul, 28 days Active Atorvastatin Calcium 80 MG Orally Once a day 1 tablet 24h Active Dietary Fiber Laxative Active Hydrochlorothiazide 50 MG Orally Once a day 1 tablet 24h June, Active Viagra 100 MG TAKE ONE TABLET BY MOUTH ONCE DAILY NEEDED 30 Active Amoxicillin 500 MG Orally every 8 hrs 1 tablet 8h 7 days Active ASA 1 tab Active Brilinta 90 MG Orally Twice a day 1 tablet 12h Mar, 30 day(s) Active Chlorhexidine Gluconate 0.12 % Mouth/Throat 3 times a day 5 ML SWISH AND SPIT 8h Jul, Active Naproxen 500 MG TAKE ONE TABLET BY MOUTH TWICE DAILY NEEDED AFTER MEALS 30 Active Aspirin 325 MG Orally Once a day 1 tablet 24h Active Gabapentin 600 MG TAKE ONE TABLET BY MOUTH FOUR TIMES DAILY 30 Active Lisinopril 20 mg Orally Once a day 1 tablet 24h Active Requip 2 MG Orally Once a day 1 tablet 1 to 3 hours before bedtime 24h Mar, 30 day(s) Active RESULTS No Results PROCEDURES Procedure Date Ordered Result Body Site [facility] VISIT IPPE/AWV July 18, 2017 ANNUAL YONATHANNES VST; PERSNL PPS INIT July 18, 2017 SINGLE IMMUNIZATION ADMIN July 18, 2017 PT TOBACCO SCREEN RCVD TLK July 18, 2017 FALL RISK ASSESSMENT DOCD July 18, 2017 ADMN PNEUMCOC VAC NO FEE SCHED DAY July 18, 2017 [id number] (PNEUMOVAX) July 18, 2017 INSTRUCTIONS MEDICATIONS ADMINISTERED No Known Medications MEDICAL (GENERAL) HISTORY Type Description Date Medical History spinal compression fracture Medical History cardiovascular disease Medical History stent placed 03-07-15 Surgical History cardiac stent 03-07-15 Surgical History Cardiac stent 11/2015 Hospitalization History [place] with stent placement 03-06-15 Hospitalization History Cardiac Stent Collapsed/Heart attack 11/2015
--- OUTSIDE RECORDS SUMMARY | 2018-01-15 21:12 | XMS REPORT ---
Author Author ROB RAMIREZ Organization [facility] Address [address] [place] [address] Care Team Providers Care Lab Systems Analyst Name Role Phone ROB RAMIREZ Unavailable PROBLEMS Type Condition ICD9-CM Code SHS58-DC Code Onset Dates Condition Status SNOMED Code Problem Erectile dysfunction due to arterial insufficiency N52.01 Active 903497730 Problem Recurrent right knee instability M23.51 Active 910079310 Problem Other chronic pain G89.29 Active 25574571 Problem Lumbar radiculopathy, chronic M54.16 Active 255367589 Problem Right leg weakness R29.898 Active [id number] Problem Mixed hyperlipidemia E78.2 Active 522670067 Problem Morbid obesity E66.01 Active 215245025 Problem Coronary artery disease involving [place] coronary artery of [place] 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 Active 2946477653994 Problem Morbid (severe) obesity due to excess calories E66.01 Active 824838947 Problem Cervical spinal stenosis M48.02 Active 47837702 Problem Foot pain, left M79.672 Active 40976620 Problem HTN (hypertension) I10 Active 86828532 Problem Cardiac disease I51.9 Active 95469583 Problem Ingrowing nail L60.0 Active 396907911 Problem 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 Active 521622732 Problem Obesity E66.9 Active 028812374 Problem Polyneuropathy associated with underlying disease G63 Active 142570869 ALLERGIES Substance Reaction Event Type Date Status Metoprolol Tartrate fatigue Drug Allergy Jul, Active ENCOUNTERS Encounter Location Date Diagnosis [facility] [id number] [address] Sep, Lumbar radiculopathy, chronic M54.16 [facility] [id number], [place] [address] Sep, Lumbar radiculopathy, chronic M54.16 [facility] [id number] [place] [address] 01040- 0547 Aug, Cervical spinal stenosis M48.02 [facility] [id number] [place] [address] 81895- 4321 Aug, [facility] [id number] [place] [address] 11406- 8096 Jul, Cervical spinal stenosis M48.02 [facility] [id number] [place] [address] 81632- 8770 Jul, Medicare annual wellness visit, initial Z00.00 ; Morbid ( severe) obesity due to excess calories E66.01 ; Coronary artery disease involving [place] coronary artery of [place] 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 ; 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 ; Polyneuropathy associated with underlying disease G63 ; HTN (hypertension) I10 ; Mixed hyperlipidemia E78.2 ; BMI 50.0-59.9, adult Z68.43 and Encounter for immunization Z23 [facility] [id number] [place] [address] 37396- 2726 Jul, Cervical spinal stenosis M48.02 ; HTN (hypertension) I10 ; Coronary artery disease involving [place] coronary artery of [place] 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 and Right leg weakness R29.898 [facility] [id number] [place] [address] 20263- 1435 June, Cervical spinal stenosis M48.02 [facility] [id number] [place] [address] 22159- 0069 June, Cervical spinal stenosis M48.02 [facility] [id number] [place] [address] 24322- 6877 May, Cervical spinal stenosis M48.02 [facility] [id number] [place] [address] 27837- 1816 Apr, Cervical spinal stenosis M48.02 [facility] [id number] [place] [address] 55028 -4330 Mar, Neck pain on right side M54.2 and BMI 50.0-59.9, adult Z68.43 [facility] [address] 61528- 0734 06 Mar, 2017 Cervical spinal stenosis M48.02 [facility] [id number] [place] [address] 80806- 4934 Feb, Cervical spinal stenosis M48.02 [facility] [address] 77306- 2440 Feb, [facility] [address] 19358- 1518 Feb, Morbid (severe) obesity due to excess calories E66.01 and Coronary artery disease involving [place] coronary artery of [place] 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 [facility] [id number] [place] [address] 37175- 6206 Feb, Mixed hyperlipidemia E78.2 and HTN (hypertension) I10 [facility] [address] 49234- 9111 Feb, Cervical spinal stenosis M48.02 ; HTN (hypertension) I10 ; Mixed hyperlipidemia E78.2 ; Recurrent right knee instability M23.51 and Morbid obesity E66.01 [facility] [id number] [place] [address] 18706- 9753 Jan, Other chronic pain G89.29 [facility] [id number] [place] [address] 88720- 5638 Dec, Other chronic pain G89.29 [facility] [id number] [place] [address] 00947- 2058 Nov, Other chronic pain G89.29 [facility] [id number] [place] [address] 26109- 4146 Oct, Other chronic pain G89.29 [facility] [id number] [place] [address] 43774- 3793 Sep, Other chronic pain G89.29 [facility] [id number] [place] [address] 53129- 0773 Sep, Other chronic pain G89.29 [facility] [id number] [place] [address] 76675- 2367 Sep, Tenderness of left calf M79.662 and Cervical spinal stenosis M48.02 [facility] [address] 58424- 6429 Aug, Other chronic pain G89.29 [facility] [id number] [place] [address] 32023- 1967 Aug, Cervical radiculopathy M54.12 [facility] [id number] [place] [address] 57208 -3964 Aug, Cervical neuritis M54.12 [facility] [address] 53463- 1108 Jul, Other chronic pain G89.29 [facility] [id number] [place] [address] [id number] Jul, Dental caries K02.9 [facility] [id number] [place] [address] 05105- 9220 Jul, Other chronic pain G89.29 [facility] [id number] [place] [address] 67703- 2328 June, Other chronic pain G89.29 [facility] [id number] [place] [address] [id number] May, Dental examination Z01.20 [facility] [address] 17914- 8076 May, Other chronic pain G89.29 [facility] [id number] [place] [address] 62842- 8954 Apr, Cervical spinal stenosis M48.02 and Drug-induced constipation K59.03 [facility] [id number], [place] [address]- 7558 13 Apr, 2016 [facility] [id number] [place] [address] 73021- 0283 Apr, Other chronic pain G89.29 [facility] [address], [place] [address]- 1445 10 Apr, 2016 [facility] [id number] [place] [address] 02209- 1837 Mar, [facility] [id number] [place] [address] 14746- 5098 Mar, Other chronic pain G89.29 [facility] [id number] [place] [address] 17884- 5456 Feb, Other chronic pain G89.29 [facility] [id number] [place] [address] 04414- 8939 Jan, Other chronic pain G89.29 [facility] [id number] [place] [address] 49098- 9484 Dec, [facility] [id number] [place] [address] 84035- 7647 16 Dec, 2015 Other chronic pain G89.29 [facility] [id number] [place] [address] 76051- 0610 Dec, Cervical spinal stenosis M48.02 ; Encounter for immunization Z23 ; Polyneuropathy associated with underlying disease G63 and Erectile dysfunction due to arterial insufficiency N52.01 [facility] [address], [place] [address]- 3711 Nov, [facility] [id number] [place] [address] 62706- 3815 04 Nov, 2015 [facility] [id number] [place] [address] 61769- 6249 Oct, [facility] [id number] [place] [address] 45932- 1346 Sep, [facility] [id number] [place] [address] 54055- 9561 Aug, [facility] [address] 42830- 6083 Jul, Other chronic pain G89.29 [facility] [address] 57165 -3104 Jul, Angioedema, initial encounter T78.3XXA and Dental abscess K04.7 [facility] [address] 51048- 7805 Jul, Leg pain M79.606 [facility] [address] 77279- 5918 June, Other chronic pain G89.29 and Encounter for immunization Z23 [facility] [address] 72909- 0123 June, [facility] [address] 72705- 9639 May, Leg pain M79.606 [facility] [address] 76620- 4176 Apr, Leg pain M79.606 and Cervical spinal stenosis M48.02 [facility] [address] 74291- 6642 Apr, [facility] [id number] [place] [address] 08349- 9841 Mar, High ankle sprain of left lower extremity S93.432A [facility] [address] 91071- 8198 15 Mar, 2015 [facility] [id number] [place] [address] 29294- 1558 Mar, Left ankle pain M25.572 [facility] [address] [place] [address] 5951 Mar, [facility] [id number] [place] [address] 32114- 8645 Mar, [facility] [id number] [place] [address] 63361- 2386 Mar, Leg pain M79.606 [facility] [address] 88818- 0886 Mar, [facility] [id number] [place] [address] 58464- 4797 Mar, Ankle pain M25.579 ; Cardiac disease I51.9 ; Obesity E66.9 ; Leg pain M79.606 ; HTN (hypertension) I10 ; Ingrowing nail L60.0 ; 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 and Foot pain, left M79.672 [facility] [id number] [place] [address] 28613- 3878 Feb, [facility] [id number] [place] [address] 86783- 1176 Jan, [facility] [id number] [place] [address] 32907- 0180 Dec, Cervical spinal stenosis M48.02 and Hypertension I10 [facility] [id number] [place] [address] 83763- 9167 Dec, [facility] [id number] [place] [address] 04464- 5192 Dec, [facility] [id number] [place] [address] 45086- 8976 Dec, [facility] [id number] [place] [address] 03428- 7323 Nov, [facility] [id number] [place] [address] 67594- 7889 Nov, [facility] [id number] [place] [address]- 2064 Oct, [facility] [address] [facility] [id number] [place] [address]- 2067 Oct, [facility] [address] [facility] [id number] [place] [address]- 6909 Oct, [facility] [id number] [place] [address], [place] [address]- 9750 Oct, [facility] [address] [facility] [id number] [place] [address]- 6725 Sep, [facility] [id number] [place] [address], [place] [address]- 8043 Sep, [facility] [id number] [address]- 6567 Sep, Spinal stenosis in cervical region 723.0 ; Essential hypertension, benign 401.1 and Erectile dysfunction 607.84 [facility] [address], [place] [address]- 6493 Sep, [facility] [id number], [place] [address]- 8720 Aug, [facility] [id number], [place] [address]- 6020 Aug, [facility] [id number], [place] [address]- 4221 Jul, [facility] [id number], [place] [address]- 9774 June, [facility] [id number] [address]- 6314 June, [facility] [id number] [address]- 5953 June, [facility] [id number] 7681 June, [facility] [address] [address]- 0245 June, Spinal stenosis in cervical region 723.0 and Essential hypertension, benign 401.1 [facility] [id number] [address]- 2623 14 May, 2014 [facility] [address] [place] [address]- 6971 May, [facility] [address] [facility] [id number] [address]- 2239 16 Apr, 2014 [facility] [address] [facility] [id number] [place] [address]- 8906 Apr, [facility] [id number] [place] [address]- 2094 Apr, [facility] [id number] [address]- 4704 Apr, [facility] [address] [place] [address]- 3841 Mar, [facility] [address] [place] [address]- 2111 Mar, [facility] [address] [place] [address]- 2169 Feb, [facility] [id number] [address]- 6763 Feb, [facility] [id number] [address]- 5961 Feb, [facility] [id number] [address]- 4754 Feb, [facility] [id number] [address]- 5367 Feb, [facility] [id number], [place] [address]- 7094 Jan, [facility] [place] [facility] [address] [id number] [place] [address]- 6962 17 Jan, 2014 [facility] [place] [facility] [address] [id number] [place] 4886 Jan, [facility] [place] [facility] [address] [id number] [place] 5121 Jan, [facility] [place] [facility] [address] [id number] [place] [address]- 1200 Dec, [facility] [place] [facility] [address] [id number] [place] [address]- 9535 Dec, [facility] [place] [facility] [address] [id number] [place] 9420 Nov, [facility] [place] [facility] [address] [id number] [place] 7522 Nov, [facility] [place] [facility] [address] [id number] [place] [address]- 9745 Oct, [facility] [place] [facility] [address] [id number] [place] [address]- 6388 Oct, [facility] [place] [facility] [address] [id number] [place] [address]- 8157 Oct, [facility] [place] [facility] [address] [id number] [place] [address]- 2719 Oct, [facility] [place] [facility] [address] [id number] [place] [address]- 0195 Sep, [facility] [place] [facility] [address] [id number] [place] 4419 Sep, [facility] [place] [facility] [address] [id number] [place] [address]- 8599 Jul, [facility] [place] [facility] [address] [id number] [place] [address]- 6669 Jul, [facility] [place] [facility] [address] [id number] [place] [address]- 4074 Jul, [facility] [place] [facility] [address] [id number] [place] [address]- 1184 Jul, [facility] [place] [facility] [address] [id number] [place] [address]- 0389 June, [facility] [place] [facility] [address] [id number] [place] [address]- 2330 June, [facility] [place] [facility] [address] [id number] [place] [address]- 3641 June, [facility] [place] [facility] [address] [id number] [place] [address]- 5842 June, [facility] [place] [facility] [address] [id number] [place] [address]- 4569 Mar, [facility] [place] [facility] [address] [id number] [place] [address]- 7479 Mar, [facility] [place] [facility] [address] [id number] [place] [address]- 0936 Mar, [facility] [place] [facility] [address] [id number] [place] [address]- 7084 Mar, [facility] [place] [facility] [address] [id number] [place] [address]- 9960 Mar, [facility] [place] [facility] [address] [id number] [place] [address]- 0061 Feb, [facility] [place] [facility] [address] [id number] [place] [address]- 0637 Feb, [facility] [place] [facility] [address] [id number] [place] [address]- 3786 Feb, [facility] [place] [facility] [address] [id number] [place] [address]- 5654 Feb, [facility] [place] [facility] [address] [id number] [place] [address]- 7032 Feb, [facility] [place] [facility] [address] [id number] [place] [address]- 2546 Feb, [facility] [address] [id number] [place] [address]- 5823 Feb, [facility] [place] [facility] [address] [id number] [place] [address] 2546 Feb, [facility] [place] [facility] [address] [id number] [place] [address]- 1983 Feb, [facility] [place] [facility] [address] [id number] [place] [address]- 1928 Feb, [facility] [place] [facility] [address] [id number] [place] [address]- 8440 Nov, [facility] [place] [facility] [address] [id number] [place] [address]- 3683 Nov, [facility] [place] [facility] [address] [id number] [place] [address]- 9474 Nov, [facility] [address] [id number] [place] [address]- 6756 Nov, [facility] [place] [facility] [address] [id number] [place] [address]- 6055 Nov, [facility] [place] [facility] [address] [id number] [place] [address]- 6143 Nov, [facility] [place] [facility] [address] [id number] [place] [address]- 2022 Aug, [facility] [place] [facility] [address] [id number] [place] [address]- 2540 Aug, [facility] [place] [facility] [address] [id number] [place] [address]- 3986 Aug, [facility] [place] [facility] [address] [id number] [place] [address]- 2546 Aug, [facility] [place] [facility] [address] [id number] [place] [address]- 4073 May, [facility] [address] [id number] [place] [address]- 6551 18 Apr, 2012 [facility] [place] [facility] [address] [id number] [place] [address]- 0576 11 Apr, 2012 [facility] [place] [facility] [address] [id number] [place] [address]- 6440 17 Jan, 2012 [facility] [place] [facility] [address] [id number] [place] [address]- 6026 17 Jan, 2012 [facility] [place] [facility] [address] [id number] [place] [address]- 7944 17 Jan, 2012 [facility] [place] [facility] [address] [id number] [place] [address]- 6366 Jan, [facility] [place] [facility] [address] [id number] [place] [address]- 3058 17 Jan, 2012 [facility] [place] [facility] [address] [id number] [place] [address]- 8464 17 Jan, 2012 [facility] [place] [facility] [address] [id number] [place] [address]- 7535 17 Jan, 2012 [facility] [place] [facility] [address] [id number] [place] [address]- 4650 17 Jan, 2012 [facility] [place] [facility] [address] [id number] [place] [address] 12 Jan, 2012 [facility] [place] [facility] [address] [id number] [place] [address] 11 Jan, 2012 [facility] [place] [facility] [address] [id number] [place] [address] 11 Jan, 2012 [facility] [place] [facility] [address] [id number] [place] [address] 10 Jan, 2012 [facility] [place] [facility] [address] [id number] [place] [address] 10 Jan, 2012 [facility] [place] [facility] [address] [id number] [place] [address] Dec, [facility] [address] [id number] [place] [address] Dec, [facility] [place] [facility] [address] [id number] [place] [address] Dec, [facility] [place] [facility] [address] [id number] [place] [address] Sep, [facility] [place] [facility] [address] [id number] [place] [address] Sep, [facility] [place] [facility] [address] [id number] [place] [address] Sep, [facility] [place] [facility] [address] [id number] [place] [address] Aug, [facility] [place] [facility] [address] [id number] [place] [address] Aug, [facility] [place] [facility] [address] [id number] [place] [address] Aug, [facility] [place] [facility] [address] [id number] [place] [address] June, [facility] [place] [facility] [address] [id number] [place] [address] Apr, [facility] [place] [facility] [address] [id number] [place] [address] Apr, [facility] [place] [facility] [address] [id number] [place] [address] Mar, [facility] [place] [facility] [address] [id number] [place] [address] Feb, [facility] [place] [facility] [address] [id number] [place] [address] Feb, [facility] [place] [facility] [address] [id number] [place] [address] Jan, [facility] [place] [facility] [address] [facility] [id number], [place] [address] Jan, [facility] [address] [facility] [id number], [place] [address] Dec, [facility] [address] [facility] [id number], [place] [address] Dec, [facility] [address] [facility] [id number], [place] [address] Dec, [facility] [address] [facility] [id number] [place] [address] Nov, [facility] [address] [facility] [id number] [place] [address] 15 Sep, 2010 [facility] [address] [id number], [place] [address] Apr, [facility] [id number], [place] [address] 16 Mar, 2010 [facility] [address] [id number], [place] [address] Jan, [facility] [id number], [place] [address] Dec, [facility] [id number] [address] Nov, [facility] [address] [id number], [place] [address] Sep, [facility] [address] [facility] [id number], [place] [address] Jul, [facility] [address] [facility] [id number], [place] [address] 14 Feb, 2009 [facility] [address] [facility] [id number] [address] Jan, IMMUNIZATIONS No Known Immunizations SOCIAL HISTORY Never Assessed REASON FOR VISIT Pain management (chronic), PT reports that he bought a car Septemper and it has been cutting into his right reyes. Pt notes now that it has started causing him more pain- Nate BURK , PDM, PHQ2, AUDIT C, Pt reports that at night his legs from the knees down will shake and burn. PT notes if he starts rubbing/working out the muscles at night it will somewhat help -Nate BURK, PT reports that he has been having constipation for a few days, PT notes he added a fiber pill to his diet.-nate BURK PLAN OF CARE Activity Details Follow Up 3 Months Reason: VITAL SIGNS Height 75 in 2017-07-17 Weight 429.0 lbs 2017-07-17 Temperature 99.1 degrees Fahrenheit 2017-07-17 Heart Rate 74 bpm 2017-07-17 Respiratory Rate 20 2017-07-17 Oximetry on room air:95 % 2017-07-17 BMI 53.62 kg/m2 2017-07-17 Blood pressure systolic 150 mmHg 2017-07-17 Blood pressure diastolic 88 mmHg 2017-07-17 MEDICATIONS Medication Instructions Dosage Frequency Start Date End Date Duration Status Baclofen 20 MG TAKE ONE TABLET BY MOUTH FOUR TIMES DAILY WITH FOOD OR MILK 30 Active Ambien 10 mg Orally Once a day 1 tablet at bedtime as needed 24h Jul, Active Viagra 100 MG TAKE ONE TABLET BY MOUTH ONCE DAILY NEEDED 30 Active Gabapentin 600 MG TAKE ONE TABLET BY MOUTH FOUR TIMES DAILY 30 Active Naproxen 500 MG TAKE ONE TABLET BY MOUTH TWICE DAILY NEEDED AFTER MEALS 30 Active Hydrocodone-Acetaminophen 7.5-325 MG Orally 3 times a day 1 tablet as needed 8h Jul, 28 days Active Aspirin 325 MG Orally Once a day 1 tablet 24h Active Dietary Fiber Laxative Active Requip 2 MG Orally Once a day 1 tablet 1 to 3 hours before bedtime 24h Mar, 30 day(s) Active Metoprolol Tartrate 25 MG Orally Twice a day 1 tablet with food 12h Active Nitroglycerin 0.4 MG Active Amoxicillin 500 MG Orally every 8 hrs 1 tablet 8h 7 days Active Brilinta 90 MG Orally Twice a day 1 tablet 12h Mar, 30 day(s) Active Chlorhexidine Gluconate 0.12 % Mouth/Throat 3 times a day 5 ML SWISH AND SPIT 8h Jul, Active Naprosyn 500 mg Orally 2 times a day, pc 1 tablet as needed 30 Active Lisinopril 20 mg Orally Once a day 1 tablet 24h Active ASA 1 tab Active Atorvastatin Calcium 80 MG Orally Once a day 1 tablet 24h Active Hydrochlorothiazide 50 MG Orally Once a day 1 tablet 24h June, Active RESULTS No Results PROCEDURES Procedure Date Ordered Result Body Site FOR[facility] VISIT ESTABLISHED PATIENT July 17, 2017 INSTRUCTIONS MEDICATIONS ADMINISTERED No Known Medications MEDICAL (GENERAL) HISTORY Type Description Date Medical History spinal compression fracture Medical History cardiovascular disease Medical History stent placed 03-07-15 Surgical History cardiac stent 03-07-15 Surgical History Cardiac stent 11/2015 Hospitalization History [facility] with stent placement 03-06-15 Hospitalization History Cardiac Stent Collapsed/Heart attack 11/2015
--- OUTSIDE RECORDS SUMMARY | 2018-01-15 21:13 | XMS REPORT ---
Author Author ROB RAMIREZ [facility] Address [address] [place] [address] Care Team Providers Care Pallet Repairer Name Role Phone ROB RAMIREZ Unavailable PROBLEMS Type Condition ICD9-CM Code AGQ48-FU Code Onset Dates Condition Status SNOMED Code Problem Erectile dysfunction due to arterial insufficiency N52.01 Active 834028470 Problem Recurrent right knee instability M23.51 Active 768730013 Problem Other chronic pain G89.29 Active 34644743 Problem Lumbar radiculopathy, chronic M54.16 Active 394109079 Problem Right leg weakness R29.898 Active [id number] Problem Mixed hyperlipidemia E78.2 Active 017204497 Problem Morbid obesity E66.01 Active 338540019 Problem Coronary artery disease involving [place] coronary artery of [place] 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 Active 3166196672813 Problem Morbid (severe) obesity due to excess calories E66.01 Active 060613530 Problem Cervical spinal stenosis M48.02 Active 27830465 Problem Foot pain, left M79.672 Active 84424578 Problem HTN (hypertension) I10 Active 75549389 Problem Cardiac disease I51.9 Active 58081347 Problem Ingrowing nail L60.0 Active 140346249 Problem 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 Active 037240726 Problem Obesity E66.9 Active 244606190 Problem Polyneuropathy associated with underlying disease G63 Active 176755585 ALLERGIES No Information ENCOUNTERS Encounter Location Date Diagnosis [facility] [id number] [address] Sep, Lumbar radiculopathy, chronic M54.16 [facility] [id number] [address] Aug, Cervical spinal stenosis M48.02 [facility] [id number] [address] Aug, [facility] [id number] [place] [address] 52691- 2160 Jul, Cervical spinal stenosis M48.02 [address] [id number] [place] [address] 18928- 2313 Jul, Medicare annual wellness visit, initial Z00.00 ; Morbid ( severe) obesity due to excess calories E66.01 ; Coronary artery disease involving [place] coronary artery of [place] 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 ; 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 ; Polyneuropathy associated with underlying disease G63 ; HTN (hypertension) I10 ; Mixed hyperlipidemia E78.2 ; BMI 50.0-59.9, adult Z68.43 and Encounter for immunization Z23 [id number] [place] [address] 99383- 1569 04 Jul, 2017 Cervical spinal stenosis M48.02 ; HTN (hypertension) I10 ; Coronary artery disease involving [place] coronary artery of [place] 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 and Right leg weakness R29.898 [address] [facility] [id number] [place] [address] 84908- 7561 June, Cervical spinal stenosis M48.02 [address] [id number] [place] [address] 76765- 2822 June, Cervical spinal stenosis M48.02 [facility] [id number] [place] [address] 76493- 0408 May, Cervical spinal stenosis M48.02 [facility] [id number] [place] [address] 84591- 2078 Apr, Cervical spinal stenosis M48.02 [facility] [id number] [place] [address] 23195 -6456 14 Mar, 2017 Neck pain on right side M54.2 and BMI 50.0-59.9, adult Z68.43 [address] [facility] [id number] [place] [address] 15740- 8468 06 Mar, 2017 Cervical spinal stenosis M48.02 [facility] [id number] [address] 4908 Feb, Cervical spinal stenosis M48.02 [facility] [id number] [place] [address] 49861- 2217 Feb, [facility] [id number] [place] [address] 92464- 7030 Feb, Morbid (severe) obesity due to excess calories E66.01 and Coronary artery disease involving [place] coronary artery of [place] 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 [facility] [id number] [place] [address] 47375- 2709 Feb, Mixed hyperlipidemia E78.2 and HTN (hypertension) I10 [facility] [id number] [place] [address] 36510- 9479 Feb, Cervical spinal stenosis M48.02 ; HTN (hypertension) I10 ; Mixed hyperlipidemia E78.2 ; Recurrent right knee instability M23.51 and Morbid obesity E66.01 [facility] [id number] [place] [address] 91939- 6710 Jan, Other chronic pain G89.29 [facility] [id number] [place] [address] 33927- 5253 16 Dec, 2016 Other chronic pain G89.29 [facility] [id number] [place] [address] 52689- 3518 Nov, Other chronic pain G89.29 [facility] [id number] [place] [address] 59800- 1176 Oct, Other chronic pain G89.29 [facility] [id number] [place] [address] 59515- 3097 Sep, Other chronic pain G89.29 [facility] [id number] [place] [address] 91808- 2857 Sep, Other chronic pain G89.29 [facility] [address] [place] [address]- 2530 Sep, Tenderness of left calf M79.662 and Cervical spinal stenosis M48.02 [facility] [id number] [place] [address] 39081- 6205 Aug, Other chronic pain G89.29 [facility] [id number] [place] [address] 18640- 4798 Aug, Cervical radiculopathy M54.12 [facility] [id number] [place] [address] 55018 -2307 Aug, Cervical neuritis M54.12 [facility] [id number] [place] [address] 40193- 3049 Jul, Other chronic pain G89.29 [facility] [id number] [place] [address] [id number] Jul, Dental caries K02.9 [facility] [id number] [place] [address] 21655- 5431 Jul, Other chronic pain G89.29 [facility] [id number] [place] [address] 35623- 2655 June, Other chronic pain G89.29 [facility] [id number] [place] [address] [id number] May, Dental examination Z01.20 [facility] [id number] [place] [address] 86883- 4338 May, Other chronic pain G89.29 [facility] [id number] [place] [address] 38769- 4049 Apr, Cervical spinal stenosis M48.02 and Drug-induced constipation K59.03 [facility] [id number] [place] [address] 52892- 0972 Apr, [facility] [id number] [place] [address] 12998- 5549 Apr, Other chronic pain G89.29 [facility] [address] [address]- 1807 Apr, [facility] [id number] [place] [address] 87811- 1686 Mar, [facility] [address] [place] [address] 80351- 6914 10 Mar, 2016 Other chronic pain G89.29 [facility] [id number] [place] [address] 10467- 9015 Feb, Other chronic pain G89.29 [facility] [id number] [place] [address] 67231- 3818 Jan, Other chronic pain G89.29 [facility] [id number] [place] [address] 15228- 1673 Dec, [facility] [id number] [place] [address] 82755- 0158 Dec, Other chronic pain G89.29 [facility] [address] [place] [address] 29965- 0170 Dec, Cervical spinal stenosis M48.02 ; Encounter for immunization Z23 ; Polyneuropathy associated with underlying disease G63 and Erectile dysfunction due to arterial insufficiency N52.01 [facility] [address] [address]- 5739 Nov, [facility] [address] [place] [address] 93568- 0792 Nov, [facility] [address] [address]- 6277 Oct, [facility] [id number] [place] [address] 20634- 9596 Sep, [facility] [address] [address]- 9939 Aug, [facility] [address] [address]- 6236 Jul, Other chronic pain G89.29 [facility] [address] [address] -[address]261 Jul, Angioedema, initial encounter T78.3XXA and Dental abscess K04.7 [facility] [address] 48588- 3605 Jul, Leg pain M79.606 [facility] [address] 43661- 3869 June, Other chronic pain G89.29 and Encounter for immunization Z23 [address] 26494- 5918 June, [facility] [address] 32242- 0512 May, Leg pain M79.606 [address] 64070- 1665 Apr, Leg pain M79.606 and Cervical spinal stenosis M48.02 [address] 80939- 7700 Apr, [facility] [address] 95559- 6299 Mar, High ankle sprain of left lower extremity S93.432A [address] 22426- 4244 Mar, [address] 75557- 0689 Mar, Left ankle pain M25.572 [address] 29529- 4068 Mar, [facility] [address] 88697- 8368 Mar, [facility] [id number] [place] [address] 19254- 8896 Mar, Leg pain M79.606 [facility] [address] 73890- 2151 Mar, [facility] [id number] [place] [address] 88980- 8737 Mar, Ankle pain M25.579 ; Cardiac disease I51.9 ; Obesity E66.9 ; Leg pain M79.606 ; HTN (hypertension) I10 ; Ingrowing nail L60.0 ; 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 and Foot pain, left M79.672 [facility] [id number] [place] [address] 49122- 8055 Feb, [facility] [id number] [place] [address] 00637- 6962 Jan, [facility] [address] 80166- 3404 Dec, Cervical spinal stenosis M48.02 and Hypertension I10 [facility] [id number] [place] [address] 82691- 3848 Dec, [facility] [id number] [place] [address] 13148- 1621 Dec, [facility] [id number] [place] [address] 13495- 3404 Dec, [facility] [id number] [place] [address] 51403- 7689 Nov, [facility] [id number] [place] [address] 63098- 6638 Nov, [facility] [id number] [place] [address] 24156- 8762 Oct, [facility] [id number] [place] [address] 12465- 4159 Oct, [facility] [id number] [address]- 2182 Oct, [facility] [address], [place] [address]- 3654 Oct, [facility] [address] [address]- 2699 Sep, [facility] [address] [address]- 5460 Sep, [facility] [id number] 8845 Sep, Spinal stenosis in cervical region 723.0 ; Essential hypertension, benign 401.1 and Erectile dysfunction 607.84 [facility] [address] [address]- 5248 Sep, [facility] [address] [address]- 5821 Aug, [facility] [address] [address]- 0965 Aug, [facility] [address] [address]- 0859 Jul, [facility] [address] [address]- 1834 June, [facility] [address] [address]- 8916 June, [facility] [id number] [address]- 2488 June, [facility] [address] [address]- 5654 June, [facility] [id number] [address]- 7686 June, Spinal stenosis in cervical region 723.0 and Essential hypertension, benign 401.1 [facility] [address] [place] [address]- 2051 14 May, 2014 [facility] [place] [facility] [address] [id number] [place] [address]- 3360 13 May, 2014 [facility] [place] [facility] [address] [id number] [place] [address]- 1144 16 Apr, 2014 [facility] [place] [facility] [address] [id number] [place] [address]- 0022 16 Apr, 2014 [facility] [place] [facility] [address] [id number] [place] [address]- 9597 Apr, [facility] [place] [facility] [address] [id number] [place] [address]- 4235 Apr, [facility] [place] [facility] [address] [id number] [place] [address]- 5316 16 Mar, 2014 [facility] [place] [facility] [address] [id number] [place] [address]- 6024 16 Mar, 2014 [facility] [place] [facility] [address] [id number] [place] [address]- 5582 Feb, [facility] [place] [facility] [address] [id number] [place] [address]- 3197 Feb, [facility] [place] [facility] [address] [id number] [place] [address]- 3752 Feb, [facility] [place] [facility] [address] [id number] [place] [address]- 2321 Feb, [facility] [place] [facility] [address] [id number] [place] [address]- 8132 Feb, [facility] [place] [facility] [address] [id number] [place] [address]- 5738 Jan, [facility] [place] [facility] [address] [id number] [place] [address]- 7031 Jan, [facility] [place] [facility] [address] [id number] [address]- 1663 Jan, [facility] [place] [facility] [address] [id number] [place] [address]- 7081 Jan, [facility] [place] [facility] [address] [id number] [place] [address]- 5702 Dec, [facility] [place] [facility] [address] [id number] [place] [address]- 7479 Dec, [facility] [place] [facility] [address] [id number] [place] [address]- 3817 Nov, [facility] [place] [facility] [address] [id number] [place] [address]- 4965 Nov, [facility] [place] [facility] [address] [id number] [place] [address]- 2646 Oct, [facility] [place] [facility] [address] [id number] [place] [address]- 2515 Oct, [facility] [place] [facility] [address] [id number] [place] [address]- 7100 Oct, [facility] [place] [facility] [address] [id number] [place] [address]- 7086 Oct, [facility] [place] [facility] [address] [id number] [place] [address]- 1005 Sep, [facility] [place] [facility] [address] [id number] [place] [address]- 7055 Sep, [facility] [place] [facility] [address] [id number] [place] [address]- 4759 Jul, [facility] [place] [facility] [address] [id number] [place] [address]- 1280 Jul, [facility] [place] [facility] [address] [id number] [place] [address]- 1988 Jul, [facility] [place] [facility] [address] [id number] [place] [address]- 5373 Jul, [facility] [place] [facility] [address] [id number] [place] [address]- 3366 June, [facility] [place] [facility] [address] [id number] [place] [address]- 8426 June, [facility] [place] [facility] [address] [id number] [place] [address]38 June, [facility] [place] [facility] [address] [id number] [place] [address]- 9184 June, [facility] [place] [facility] [address] [id number] [place] [address]- 1844 Mar, [facility] [place] [facility] [address] [id number] [place] [address]- 0738 Mar, [facility] [place] [facility] [address] [id number] [place] [address]- 4638 Mar, [facility] [place] [facility] [address] [id number] [place] [address]- 4499 Mar, [facility] [place] [facility] [address] [id number] [place] [address]- 7530 Mar, [facility] [place] [facility] [address] [id number] [place] [address]- 2689 Feb, [facility] [place] [facility] [address] [id number] [place] [address]- 1448 Feb, [facility] [place] [facility] [address] [id number] [place] [address]- 5052 Feb, [facility] [place] [facility] [address] [id number] [place] [address]- 1745 Feb, [facility] [place] [facility] [address] [id number] [place] [address]- 0139 Feb, [facility] [place] [facility] [address] [id number] [place] [address]- 2314 Feb, [facility] [place] [facility] [address] [id number] [place] [address]- 8022 Feb, [facility] [place] [facility] [address] [id number] [place] [address] 2546 Feb, [facility] [place] [facility] [address] [id number] [place] [address]- 3188 Feb, [facility] [place] [facility] [address] [id number] [place] [address]- 2546 Feb, [facility] [place] [facility] [address] [id number] [place] [address]- 0553 Nov, [facility] [place] [facility] [address] [id number] [place] [address]- 3751 Nov, [facility] [place] [facility] [address] [id number] [place] [address]- 5313 Nov, [facility] [place] [facility] [address] [id number] [place] [address]- 4205 Nov, [facility] [place] [facility] [address] [id number] [place] [address]- 8861 Nov, [facility] [place] [facility] [address] [id number] [place] [address]- 9029 Nov, [facility] [place] [facility] [address] [id number] [place] [address]- 6258 Aug, [facility] [place] [facility] [address] [id number] [place] [address]- 2540 Aug, [facility] [place] [facility] [address] [id number] [place] [address]- 2548 Aug, [facility] [place] [facility] [address] [id number] [place] [address]- 2540 Aug, [facility] [place] [facility] [address] [id number] [place] [address]- 2546 May, [facility] [place] [facility] [address] [id number] [place] [address]- 2546 Apr, [facility] [place] [facility] [address] [id number] [place] [address]- 3815 Apr, [facility] [place] [facility] [address] [id number] [place] [address]- 1425 17 Jan, 2012 [facility] [place] [facility] [address] [id number] [place] [address]- 2736 Jan, [facility] [place] [facility] [address] [id number] [place] [address]- 8619 17 Jan, 2012 [facility] [place] [facility] [address] [id number] [place] [address]- 2072 Jan, [facility] [place] [facility] [address] [id number] [place] [address]- 9074 Jan, [facility] [place] [facility] [address] [id number] [place] [address]- 4706 Jan, [facility] [place] [facility] [address] [id number] [place] [address]- 9268 Jan, [facility] [place] [facility] [address] [id number] [place] [address]- 4482 Jan, [facility] [place] [facility] [address] [id number] [place] [address]- 4191 Jan, [facility] [place] [facility] [address] [id number] [place] [address]- 6534 Jan, [facility] [place] [facility] [address] [id number] [place] [address]- 1693 Jan, [facility] [place] [facility] [address] [id number] [place] [address]- 0888 Jan, [facility] [place] [facility] [address] [id number] [place] [address]- 7527 Jan, [facility] [place] [facility] [address] [id number] [place] [address]- 1476 Dec, [facility] [place] [facility] [address] [id number] [place] [address]- 5526 Dec, [facility] [place] [facility] [address] [id number] [place] [address]- 1835 Dec, [facility] [address] [id number] [place] [address]- 9961 Sep, [facility] [place] [facility] [address] [id number] [place] [address]- 7616 Sep, [facility] [place] [facility] [address] [id number] [place] [address]- 5406 Sep, [facility] [place] [facility] [address] [id number] [place] [address]- 5846 Aug, [facility] [place] [facility] [address] [id number] [place] [address]- 9290 Aug, [facility] [place] [facility] [address] [id number] [place] [address]- 2557 Aug, [facility] [address] [id number] [place] [address]- 1074 June, [facility] [place] [facility] [address] [id number] [place] [address]- 0624 Apr, [facility] [place] [facility] [address] [id number] [place] [address]- 0901 Apr, [facility] [place] [facility] [address] [id number] [place] [address]- 8063 Mar, [facility] [place] [facility] [address] [id number] [place] [address]- 4787 Feb, [facility] [place] [facility] [address] [id number] [place] [address] Feb, [facility] [place] [facility] [address] [id number] [place] [address] Jan, [facility] [place] [facility] [address] [id number] [place] [address] Jan, [facility] [place] [facility] [address] [id number] [place] [address] Dec, [facility] [id number] [address] Dec, [facility] [id number] [address] Dec, [facility] [id number] [address] Nov, [facility] [id number] [address] Sep, [facility] [id number] [address] Apr, [facility] [id number] [address] Mar, [facility] [id number] [address] Jan, [facility] [id number] [address] Dec, [facility] [id number] [address] Nov, [facility] [id number] [address] Sep, [facility] [id number] [address] Jul, [facility] [id number] [address] Feb, [facility] [id number] [address] Jan, IMMUNIZATIONS No Known Immunizations SOCIAL HISTORY Never Assessed REASON FOR VISIT Hydrocodone due 06/19 PLAN OF CARE VITAL SIGNS MEDICATIONS Medication Instructions Dosage Frequency Start Date End Date Duration Status Hydrocodone-Acetaminophen 7.5-325 MG Orally 3 times a day 1 tablet as needed 8h June, 28 days Active RESULTS No Results PROCEDURES [...]
--- OUTSIDE RECORDS SUMMARY | 2018-01-15 21:13 | XMS REPORT ---
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 Name Role Phone ROB RAMIREZ Unavailable PROBLEMS Type Condition ICD9-CM Code ZLD45-IZ Code Onset Dates Condition Status SNOMED Code Problem Erectile dysfunction due to arterial insufficiency N52.01 Active 481158528 Problem Recurrent right knee instability M23.51 Active 060610550 Problem Other chronic pain G89.29 Active 11976104 Problem Lumbar radiculopathy, chronic M54.16 Active 520622600 Problem Right leg weakness R29.898 Active [id number] Problem Mixed hyperlipidemia E78.2 Active 102409929 Problem Morbid obesity E66.01 Active 510758843 Problem 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 Active 9168671635217 Problem Morbid (severe) obesity due to excess calories E66.01 Active 046616923 Problem Cervical spinal stenosis M48.02 Active 09044578 Problem Foot pain, left M79.672 Active 29411757 Problem HTN (hypertension) I10 Active 36461836 Problem Cardiac disease I51.9 Active 72765474 Problem Ingrowing nail L60.0 Active 788373187 Problem 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 Active 312139933 Problem Obesity E66.9 Active 018368146 Problem Polyneuropathy associated with underlying disease G63 Active 560639405 ALLERGIES No Information ENCOUNTERS Encounter Location Date Diagnosis [facility] [place] [facility] [id number] [address] Sep, Lumbar radiculopathy, chronic M54.16 [facility] [place] [facility] [address], [place] [address] Sep, Lumbar radiculopathy, chronic M54.16 [facility] [place] [facility] [id number] [place] [address] 29164- 4755 Aug, Cervical spinal stenosis M48.02 [place] [id number] [place] [address] 87575- 0293 Aug, [place] [id number] [place] [address] 41702- 6134 Jul, Cervical spinal stenosis M48.02 [place] [id number] [place] [address] 19342- 3010 Jul, Medicare annual wellness visit, initial Z00.00 ; Morbid ( severe) obesity due to excess calories E66.01 ; 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 ; 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 ; Polyneuropathy associated with underlying disease G63 ; HTN (hypertension) I10 ; Mixed hyperlipidemia E78.2 ; BMI 50.0-59.9, adult Z68.43 and Encounter for immunization Z23 [place] [address] [address]12- 5149 Jul, Cervical spinal stenosis M48.02 ; HTN (hypertension) I10 ; 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 and Right leg weakness R29.898 [place] [id number] [place] [address] 30139- 6368 June, Cervical spinal stenosis M48.02 [place] [id number] [place] [address] 64085- 5885 June, Cervical spinal stenosis M48.02 [place] [id number] [place] [address] 82616- 0293 May, Cervical spinal stenosis M48.02 [place] [id number] [place] [address] 16407- 4456 Apr, Cervical spinal stenosis M48.02 [facility] [id number] [place] [address] 49418 -2491 14 Mar, 2017 Neck pain on right side M54.2 and BMI 50.0-59.9, adult Z68.43 [place] [id number] [place] [address] 49711- 1504 Mar, Cervical spinal stenosis M48.02 [place] [id number] [place] [address] 37753- 6235 Feb, Cervical spinal stenosis M48.02 [place] [address] 58996- 3989 Feb, [place] [address] 79768- 8984 Feb, Morbid (severe) obesity due to excess calories E66.01 and 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 [place] [id number] [place] [address] 57836- 6177 Feb, Mixed hyperlipidemia E78.2 and HTN (hypertension) I10 [place] [address] 98303- 7641 Feb, Cervical spinal stenosis M48.02 ; HTN (hypertension) I10 ; Mixed hyperlipidemia E78.2 ; Recurrent right knee instability M23.51 and Morbid obesity E66.01 [place] [id number] [place] [address] 14181- 3818 Jan, Other chronic pain G89.29 [place] [id number] [place] [address] 19140- 4417 Dec, Other chronic pain G89.29 [place] [id number] [place] [address] 57073- 0367 Nov, Other chronic pain G89.29 [place] [address] 95226- 3393 Oct, Other chronic pain G89.29 [place] [id number] [place] [address] 80945- 9499 Sep, Other chronic pain G89.29 [place] [id number] [place] [address] 97271- 9672 Sep, Other chronic pain G89.29 [facility] [place] [facility] [address] 87492- 5280 Sep, Tenderness of left calf M79.662 and Cervical spinal stenosis M48.02 [facility] [place] [facility] [id number] [place] [address] 02572- 5619 Aug, Other chronic pain G89.29 [facility] [place] [facility] [id number] [place] [address] 94154- 4080 Aug, Cervical radiculopathy M54.12 [facility] [id number] [place] [address] 23434 -5870 Aug, Cervical neuritis M54.12 [facility] [place] [facility] [id number] [place] [address] 72187- 7542 Jul, Other chronic pain G89.29 [facility] [id number] [place] [address] [id number] Jul, Dental caries K02.9 [facility] [place] [facility] [address] 52351- 0458 Jul, Other chronic pain G89.29 [facility] [place] [facility] [id number] [place] [address] 41402- 9623 June, Other chronic pain G89.29 [facility] [id number] [place] [address] [id number] May, Dental examination Z01.20 [facility] [place] [facility] [id number] [place] [address] 88471- 1210 May, Other chronic pain G89.29 [facility] [place] [facility] [id number] [place] [address] 80315- 1289 Apr, Cervical spinal stenosis M48.02 and Drug-induced constipation K59.03 [facility] [place] [facility] [address] 62976- 7113 13 Apr, 2016 [facility] [place] [facility] [address], [place] [address]- 3003 13 Apr, 2016 Other chronic pain G89.29 [facility] [place] [facility] [id number] [place] [address] 74342- 0595 10 Apr, 2016 [facility] [place] [facility] [id number] [place] [address] 96336- 6999 Mar, [facility] [place] [facility] [id number] [place] [address] 51526- 9386 Mar, Other chronic pain G89.29 [facility] [place] [facility] [id number] [place] [address] 760421- 0691 Feb, Other chronic pain G89.29 [facility] [place] [facility] [id number] [place] [address] 88630- 3759 15 Jan, 2016 Other chronic pain G89.29 [facility] [place] [facility] [id number] [place] [address] 34073- 0310 Dec, [facility] [facility] [id number] [place] [address] 18852- 1810 16 Dec, 2015 Other chronic pain G89.29 [facility] [place] [facility] [id number] [place] [address] 26101- 8103 Dec, Cervical spinal stenosis M48.02 ; Encounter for immunization Z23 ; Polyneuropathy associated with underlying disease G63 and Erectile dysfunction due to arterial insufficiency N52.01 [facility] [place] [facility] [address], [place] [address]- 5273 Nov, [facility] [id number] [place] [address] 33400- 8972 Nov, [facility] [facility] [id number] [place] [address] 58103- 8949 Oct, [facility] [facility] [id number] [place] [address] 71934- 2747 Sep, [facility] [facility] [id number] [place] [address] 40850- 2184 Aug, [facility] [facility] [address] 45477- 7053 Jul, Other chronic pain G89.29 [facility] [id number] [place] [address] 96708 -5438 Jul, Angioedema, initial encounter T78.3XXA and Dental abscess K04.7 [facility] [address] 86927- 6891 Jul, Leg pain M79.606 [place] [address] 48977- 0079 June, Other chronic pain G89.29 and Encounter for immunization Z23 [place] [address] 89827- 9631 June, [facility] [facility] [address] 63537- 8356 May, Leg pain M79.606 [place] [address] 75932- 2074 Apr, Leg pain M79.606 and Cervical spinal stenosis M48.02 [place] [address] 56485- 2644 Apr, [facility] [address] 24507- 9077 Mar, High ankle sprain of left lower extremity S93.432A [place] [address] 33171- 6395 Mar, [place] [address] 27138- 7193 Mar, Left ankle pain M25.572 [place] [address] 54975- 8119 Mar, [facility] [facility] [id number] [place] [address] 07346- 9958 Mar, [facility] [facility] [id number] [place] [address] 02797- 2740 Mar, Leg pain M79.606 [facility] [place] [facility] [id number] [place] [address] 56670- 9261 Mar, [facility] [place] [facility] [id number] [place] [address] 59400- 0804 Mar, Ankle pain M25.579 ; Cardiac disease I51.9 ; Obesity E66.9 ; Leg pain M79.606 ; HTN (hypertension) I10 ; Ingrowing nail L60.0 ; 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 and Foot pain, left M79.672 [facility] [id number] [place] [address] 36108- 7121 Feb, [facility] [place] [facility] [id number] [place] [address] 34383- 2507 Jan, [facility] [facility] [id number] [place] [address] 83945- 1852 Dec, Cervical spinal stenosis M48.02 and Hypertension I10 [facility] [id number] [place] [address] 59277- 2148 Dec, [facility] [facility] [id number] [place] [address] 97664- 4738 Dec, [facility] [facility] [id number] [place] [address] 56538- 6392 Dec, [facility] [place] [facility] [id number] [place] [address] 02935- 8042 Nov, [facility] [facility] [id number] [place] [address] 32294- 6622 Nov, [facility] [place] [facility] [id number] [place] [address] 35548- 0507 Oct, [facility] [address] 3492 Oct, [facility] [address], [place] [address]- 9761 Oct, [facility] [address] [address]- 3721 Oct, [facility] [id number] [place] [address] 08559- 5023 Sep, [facility] [address] [place] [address], [place] [address]- 0886 Sep, [facility] [id number] [place] [address] 90850- 5759 Sep, Spinal stenosis in cervical region 723.0 ; Essential hypertension, benign 401.1 and Erectile dysfunction 607.84 [facility] [id number] [address]- 8871 Sep, [facility] [address], [place] [address]- 4772 Aug, [facility] [address] 3340 Aug, [facility] [address], [place] [address]- 4676 Jul, [facility] [address], [place] [address]- 9940 June, [facility] [id number] [address]- 8793 June, [facility] [id number] 8128 June, [facility] [address]- 9266 June, [facility] [id number] [place] [address] 28388- 7005 June, Spinal stenosis in cervical region 723.0 and Essential hypertension, benign 401.1 [facility] [address] [address]- 7991 14 May, 2014 [facility] [address] [facility] [id number] [place] 3172 May, [facility] [address] [facility] [id number] [place] [address], [place] [address]- 5983 16 Apr, 2014 [facility] [address] [id number] [place] [address]- 3268 16 Apr, 2014 [facility] [id number] [place] [address], [place] [address]- 6779 Apr, [facility] [address] [place] [address]- 1710 Apr, [facility] [id number] [place] [address], [place] [address]- 2489 Mar, [facility] [id number] [address]- 0779 Mar, [facility] [address], [place] [address]- 0800 Feb, [facility] [address], [place] [address]- 8984 Feb, [facility] [id number], [place] [address]- 0868 Feb, [facility] [id number] 9997 Feb, [facility] [address], [place] [address]- 2321 Feb, [facility] [id number] 7926 Jan, [facility] [address], [place] [address]- 6840 Jan, [facility] [place] [facility] [address] [id number] [place] [address]- 2880 Jan, [facility] [place] [facility] [address] [id number] [place] 9395 Jan, [facility] [place] [facility] [address] [id number] [place] [address]- 6122 Dec, [facility] [place] [facility] [address] [id number] [place] [address]- 5240 Dec, [facility] [place] [facility] [address] [id number] [place] [address]- 1866 Nov, [facility] [place] [facility] [address] [id number] [place] [address]- 7720 Nov, [facility] [place] [facility] [address] [id number] [place] [address]- 8547 Oct, [facility] [place] [facility] [address] [id number] [place] [address]- 3551 Oct, [facility] [place] [facility] [address] [id number] [place] [address]- 3136 Oct, [facility] [place] [facility] [address] [id number] [place] [address]- 9624 Oct, [facility] [place] [facility] [address] [id number] [place] [address]- 7994 Sep, [facility] [place] [facility] [address] [id number] [place] [address]- 9789 Sep, [facility] [place] [facility] [address] [id number] [place] [address]- 7175 Jul, [facility] [place] [facility] [address] [id number] [place] [address]- 6921 Jul, [facility] [place] [facility] [address] [id number] [place] 8641 Jul, [facility] [place] [facility] [address] [id number] [place] [address]- 5608 Jul, [facility] [place] [facility] [address] [id number] [place] [address]- 1669 June, [facility] [place] [facility] [address] [id number] [place] [address]- 6123 June, [facility] [place] [facility] [address] [id number] [place] [address]- 2258 June, [facility] [place] [facility] [address] [id number] [place] [address]- 7781 June, [facility] [place] [facility] [address] [id number] [place] [address]- 5462 Mar, [facility] [place] [facility] [address] [id number] [place] [address]- 3239 Mar, [facility] [place] [facility] [address] [id number] [place] [address]- 1724 Mar, [facility] [place] [facility] [address] [id number] [place] [address]- 9607 Mar, [facility] [place] [facility] [address] [id number] [place] [address]- 3356 Mar, [facility] [place] [facility] [address] [id number] [place] [address]- 1333 Feb, [facility] [place] [facility] [address] [id number] [place] [address]- 0451 Feb, [facility] [place] [facility] [address] [id number] [place] [address]- 7001 Feb, [facility] [place] [facility] [address] [id number] [place] [address]- 1161 Feb, [facility] [place] [facility] [address] [id number] [place] 9663 Feb, [facility] [place] [facility] [address] [id number] [place] [address]- 4785 Feb, [facility] [place] [facility] [address] [id number] [place] [address]- 8258 Feb, [facility] [place] [facility] [address] [id number] [place] [address]- 3143 Feb, [facility] [place] [facility] [address] [id number] [place] [address]- 4681 Feb, [facility] [place] [facility] [address] [id number] [place] [address]- 7040 Feb, [facility] [place] [facility] [address] [id number] [place] [address]- 5654 Nov, [facility] [place] [facility] [address] [id number] [place] [address]- 9125 Nov, [facility] [place] [facility] [address] [id number] [place] [address]- 2275 Nov, [facility] [place] [facility] [address] [id number] [place] [address]- 5300 Nov, [facility] [place] [facility] [address] [id number] [place] [address]- 2887 Nov, [facility] [place] [facility] [address] [id number] [place] [address]- 6239 Nov, [facility] [place] [facility] [address] [id number], [place] [address]- 1155 Aug, [facility] [place] [facility] [address] [id number], [place] [address]- 1840 Aug, [facility] [place] [facility] [address] [id number] [place] [address]- 6010 Aug, [facility] [place] [facility] [address] [id number], [place] [address]- 9455 Aug, [facility] [place] [facility] [address] [id number] [place] [address]- 5570 May, [facility] [place] [facility] [address] [id number] [place] [address]- 0207 18 Apr, 2012 [facility] [address] [id number] [place] [address]- 0896 11 Apr, 2012 [facility] [place] [facility] [address] [id number] [place] 4766 17 Jan, 2012 [facility] [address] [id number] [place] [address]- 2066 17 Jan, 2012 [facility] [place] [facility] [address] [id number] [place] [address] 17 Jan, 2012 [facility] [address] [id number] [place] [address] 17 Jan, 2012 [facility] [place] [facility] [address] [id number] [place] [address] 17 Jan, 2012 [facility] [address] [id number] [place] [address] 17 Jan, 2012 [facility] [place] [facility] [address] [id number] [place] [address] 17 Jan, 2012 [facility] [place] [facility] [address] [id number] [place] [address] 38[address] 17 Jan, 2012 [facility] [place] [facility] [address] [id number] [place] [address] 12 Jan, 2012 [facility] [place] [facility] [address] [id number] [place] [address] 11 Jan, 2012 [facility] [place] [facility] [address] [id number] [place] [address]146 11 Jan, 2012 [facility] [place] [facility] [address] [id number] [place] [address] 5426 10 Jan, 2012 [facility] [place] [facility] [address] [id number] [place] [address] 10 Jan, 2012 [facility] [place] [facility] [address] [id number] [place] [address] Dec, [facility] [place] [facility] [address] [id number] [place] [address] Dec, [facility] [place] [facility] [address] [id number] [place] [address] Dec, [facility] [place] [facility] [address] [id number] [place] [address] Sep, [facility] [place] [facility] [address] [id number] [place] [address] Sep, [facility] [address] [id number] [place] [address] Sep, [facility] [place] [facility] [address] [id number] [place] [address] Aug, [facility] [address] [id number] [place] [address] Aug, [facility] [address] [id number] [place] [address] Aug, [facility] [address] [id number] [place] [address] 46[address] June, [facility] [address] [id number] [place] [address] Apr, [facility] [place] [facility] [address] [id number] [place] [address] Apr, [facility] [place] [facility] [address] [id number] [place] [address] Mar, [facility] [place] [facility] [address] [id number] [place] [address] 84[address] Feb, [facility] [place] [facility] [address] [id number] [place] [address] 18[address] Feb, [facility] [place] [facility] [address] [id number] [place] [address] Jan, [facility] [place] [facility] [address] [id number], [place] [address] Jan, [facility] [place] [facility] [id number] [address] Dec, [facility] [place] [facility] [address] [facility] [id number], [place] [address] Dec, [facility] [place] [facility] [id number], [place] [address] Dec, [facility] [place] [facility] [address] [id number] [address] Nov, [facility] [place] [facility] [id number], [place] [address] Sep, [facility] [place] [facility] [id number] [address] [address] Apr, [facility] [place] [facility] [id number], [place] [address] 16 Mar, 2010 [facility] [place] [facility] [id number], [place] [address] Jan, [facility] [place] [facility] [id number], [place] [address] Dec, [facility] [place] [facility] [id number], [place] [address] Nov, [facility] [place] [facility] [id number], [place] [address] Sep, [facility] [place] [facility] [id number], [place] [address] Jul, [facility] [place] [facility] [id number], [place] [address] Feb, [facility] [place] [facility] [id number], [place] [address] Jan, IMMUNIZATIONS No Known Immunizations SOCIAL HISTORY Never Assessed REASON FOR VISIT Hydrocodone / PLAN OF CARE VITAL SIGNS MEDICATIONS Medication Instructions Dosage Frequency Start Date End Date Duration Status Hydrocodone-Acetaminophen 7.5-325 MG Orally 3 times a day 1 tablet as needed 8h Jul, 28 days Active RESULTS No Results PROCEDURES No Known procedures INSTRUCTIONS MEDICATIONS ADMINISTERED No Known Medications MEDICAL (GENERAL) HISTORY Type Description Date Medical History spinal compression fracture Medical History cardiovascular disease Medical History stent placed 03-07-15 Surgical History cardiac stent 03-07-15 Surgical History Cardiac stent 11/2015 Hospitalization History [facility] with stent placement 03-06-15 Hospitalization History Cardiac Stent Collapsed/Heart attack 11/2015
--- OUTSIDE RECORDS SUMMARY | 2018-01-15 21:14 | XMS REPORT ---
Author Author MALREEN ALEJANDRE Organization [facility] Address [address] [place] [address] Care Team Providers Care Collet Driller Name Role Phone MARLEEN ALEJANDRE Unavailable PROBLEMS Type Condition ICD9-CM Code ZGD84-HR Code Onset Dates Condition Status SNOMED Code Problem Polyneuropathy associated with underlying disease G63 Active 733274579 Problem Other chronic pain G89.29 Active 42700454 Problem Erectile dysfunction due to arterial insufficiency N52.01 Active 260322593 Problem Right leg weakness R29.898 Active [id number] Problem Morbid (severe) obesity due to excess calories E66.01 Active 611301532 Problem Morbid obesity E66.01 Active 460469400 Problem Recurrent right knee instability M23.51 Active 575058522 Problem Coronary artery disease involving conf[place] co[place] coronary artery of [place] 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 Active 1068740602707 Problem Mixed hyperlipidemia E78.2 Active 099857650 Problem Cervical spinal stenosis M48.02 Active 82278467 Problem Obesity E66.9 Active 406263494 Problem HTN (hypertension) I10 Active 89045679 Problem Ingrowing nail L60.0 Active 273808045 Problem Cardiac disease I51.9 Active 70254935 Problem Foot pain, left M79.672 Active 06831475 Problem 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 Active 565681741 ALLERGIES No Information ENCOUNTERS Encounter Location Date Diagnosis [facility] [address] [facility] [id number], [place] [address] Aug, [facility] [address] [id number] [address] Jul, Cervical spinal stenosis M48.02 [facility] [address] [facility] [id number], [place] [address] Jul, Medicare annual wellness visit, initial Z00.00 ; Morbid ( severe) obesity due to excess calories E66.01 ; Coronary artery disease involving conf[place] co[place] coronary artery of [place] 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 ; 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 ; Polyneuropathy associated with underlying disease G63 ; HTN (hypertension) I10 ; Mixed hyperlipidemia E78.2 ; BMI 50.0-59.9, adult Z68.43 and Encounter for immunization Z23 [facility] [address] [address] 04 Jul, 2017 Cervical spinal stenosis M48.02 ; HTN (hypertension) I10 ; Coronary artery disease involving conf[place] co[place] coronary artery of [place] 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 and Right leg weakness R29.898 [facility] [address] [address] June, Cervical spinal stenosis M48.02 [place] [address] [address] June, Cervical spinal stenosis M48.02 [facility] [address] [address] May, Cervical spinal stenosis M48.02 [facility] [address] [address]- [address] Apr, Cervical spinal stenosis M48.02 [facility] [address] [address] 14 Mar, 2017 Neck pain on right side M54.2 and BMI 50.0-59.9, adult Z68.43 [facility] [address] [address]- 1383 Mar, Cervical spinal stenosis M48.02 [facility] [address] [address]- 0880 Feb, Cervical spinal stenosis M48.02 [facility] [address] [address]- 4942 Feb, [facility] [address] [address]- 9702 Feb, Morbid (severe) obesity due to excess calories E66.01 and Coronary artery disease involving conf[place] co[place] coronary artery of conf[place] 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 [place] [id number] [place] [address]16- 9474 05 Feb, 2017 Mixed hyperlipidemia E78.2 and HTN (hypertension) I10 [place] [address] [address]- 4733 Feb, Cervical spinal stenosis M48.02 ; HTN (hypertension) I10 ; Mixed hyperlipidemia E78.2 ; Recurrent right knee instability M23.51 and Morbid obesity E66.01 [place] [address] [address]- [address] Jan, Other chronic pain G89.29 [place] [address] 9[address]99- 4128 Dec, Other chronic pain G89.29 [place] [address] [address]- 8537 Nov, Other chronic pain G89.29 [place] [address] 39450- 8241 Oct, Other chronic pain G89.29 [place] [id number] [place] [address] 15598- 2834 Sep, Other chronic pain G89.29 [place] [address] 02274- 3394 Sep, Other chronic pain G89.29 [place] [id number] [place] [address] 95413- 6624 Sep, Tenderness of left calf M79.662 and Cervical spinal stenosis M48.02 [place] [id number] [place] [address] 35537- 2858 Aug, Other chronic pain G89.29 [place] [address] [address]20- 1043 Aug, Cervical radiculopathy M54.12 [facility] [address], [place] [address] Aug, Cervical neuritis M54.12 [facility] [address] [place] [address] 51129- 4418 Jul, Other chronic pain G89.29 [facility] [id number] [place] [address] [id number] Jul, Dental caries K02.9 [facility] [id number] [place] [address] 47119- 0045 Jul, Other chronic pain G89.29 [facility] [id number] [place] [address] 89960- 4506 June, Other chronic pain G89.29 [facility] [id number] [place] [address] [id number] May, Dental examination Z01.20 [facility] [id number] [place] [address] 31681- 3787 May, Other chronic pain G89.29 [facility] [id number] [place] [address] 15280- 4530 Apr, Cervical spinal stenosis M48.02 and Drug-induced constipation K59.03 [facility] [id number] [place] [address] 51959- 0480 Apr, [facility] [id number] [place] [address] 07030- 7128 Apr, Other chronic pain G89.29 [facility] [id number] [place] [address] 13610- 3951 Apr, [facility] [id number] [place] [address] 35896- 8199 Mar, [facility] [address] [place] [address] 51650- 2776 Mar, Other chronic pain G89.29 [facility] [id number] [place] [address] 55749- 9715 Feb, Other chronic pain G89.29 [facility] [id number] [place] [address] 29932- 9304 Jan, Other chronic pain G89.29 [facility] [id number] [place] [address] 55556- 7140 Dec, [facility] [id number] [place] [address] 95773- 0597 Dec, Other chronic pain G89.29 [facility] [address] 32615- 8348 Dec, Cervical spinal stenosis M48.02 ; Encounter for immunization Z23 ; Polyneuropathy associated with underlying disease G63 and Erectile dysfunction due to arterial insufficiency N52.01 [facility] [address] 36545- 8591 Nov, [facility] [id number] [place] [address] 25585- 8751 Nov, [facility] [id number] [place] [address] 43274- 1701 Oct, [facility] [id number] [place] [address] 66571- 0773 Sep, [facility] [id number] [place] [address] 78015- 2936 Aug, [facility] [id number] [place] [address] 84404- 8066 Jul, Other chronic pain G89.29 [facility] [id number] [place] [address] 21158 -8207 Jul, Angioedema, initial encounter T78.3XXA and Dental abscess K04.7 [facility] [id number] [place] [address] 97083- 5053 Jul, Leg pain M79.606 [facility] [id number] [place] [address] 35690- 6094 June, Other chronic pain G89.29 and Encounter for immunization Z23 [facility] [id number] [place] [address] 73512- 6562 June, [facility] [address] 50863- 1540 May, Leg pain M79.606 [facility] [address] [address] 2541 Apr, Leg pain M79.606 and Cervical spinal stenosis M48.02 [facility] [address] 71859- 1687 Apr, [facility] [address] 36188- 6330 Mar, High ankle sprain of left lower extremity S93.432A [facility] [id number] [place] [address] 94912- 4143 Mar, [facility] [id number] [place] [address] 77697- 1638 Mar, Left ankle pain M25.572 [facility] [id number] [place] [address] 82833- 0087 Mar, [facility] [id number] [place] [address] 42423- 4780 Mar, [facility] [id number] [place] [address] 73930- 4564 Mar, Leg pain M79.606 [facility] [id number] [place] [address] 62374- 3654 Mar, [facility] [id number] [place] [address] 61053- 5148 Mar, Ankle pain M25.579 ; Cardiac disease I51.9 ; Obesity E66.9 ; Leg pain M79.606 ; HTN (hypertension) I10 ; Ingrowing nail L60.0 ; 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 and Foot pain, left M79.672 [facility] [id number] [place] [address] 31603- 2657 Feb, [facility] [id number] [place] [address] 52838- 7605 Jan, [facility] [id number] [place] [address] 30937- 4394 Dec, Cervical spinal stenosis M48.02 and Hypertension I10 [facility] [id number] [place] [address] 76437- 4502 Dec, [facility] [id number] [place] [address] 71359- 0269 Dec, [facility] [id number] [place] [address] 03942- 8460 Dec, [facility] [id number] [place] [address] 60299- 8123 Nov, [facility] [id number] [place] [address] 16203- 5802 Nov, [facility] [id number] [place] [address] 44119- 2618 Oct, [facility] [id number] [place] [address] 26949- 1394 Oct, [facility] [id number] [place] [address] 83440- 6750 Oct, [facility] [id number] [place] [address] 43829- 7245 Oct, [facility] [id number] [place] [address] 10853- 1423 Sep, [facility] [address] [place] [address]- 4542 Sep, [facility] [address] [facility] [id number] 0175 Sep, Spinal stenosis in cervical region 723.0 ; Essential hypertension, benign 401.1 and Erectile dysfunction 607.84 [facility] [address] [facility] [id number], [place] [address] 2546 Sep, [facility] [address] [facility] [id number], [place] [address]- 2441 Aug, [facility] [address] [facility] [id number], [place] [address]- 2589 Aug, [facility] [address] [id number], [place] [address]- 1576 Jul, [facility] [address], [place] [address]- 5457 June, [facility] [address], [place] [address]- 5174 June, [facility] [address], [place] [address]- 4067 June, [facility] [address], [place] [address]- 7294 June, [facility] [address], [place] [address]- 4952 June, Spinal stenosis in cervical region 723.0 and Essential hypertension, benign 401.1 [facility] [id number], [place] [address]- 4379 May, [facility] [id number], [place] [address]- 2543 May, [facility] [id number], [place] [address]- 2548 Apr, [facility] [address], [place] [address]- 6607 Apr, [facility] [place] [facility] [address] [id number] [place] [address]- 2010 Apr, [facility] [place] [facility] [address] [id number] [place] [address]- 7097 Apr, [facility] [place] [facility] [address] [id number] [place] [address]- 4393 Mar, [facility] [place] [facility] [address] [id number] [place] [address]- 4766 Mar, [facility] [place] [facility] [address] [id number] [place] [address]- 9834 Feb, [facility] [place] [facility] [address] [id number] [place] [address]- 3960 Feb, [facility] [place] [facility] [address] [id number] [place] [address]- 6498 Feb, [facility] [place] [facility] [address] [id number] [place] [address]- 3651 Feb, [facility] [place] [facility] [address] [id number] [place] [address]- 8263 Feb, [facility] [place] [facility] [address] [id number] [place] [address]- 2513 Jan, [facility] [place] [facility] [address] [id number], [place] [address]- 5344 Jan, [facility] [place] [facility] [address] [id number], [place] [address]- 3889 Jan, [facility] [place] [facility] [address] [id number] [place] [address]- 2474 Jan, [facility] [place] [facility] [address] [id number] [place] [address]- 5892 Dec, [facility] [place] [facility] [address] [id number] [place] [address]- 2776 Dec, [facility] [place] [facility] [address] [id number] [place] [address]- 5167 Nov, [facility] [address] [id number] [place] [address]- 7047 Nov, [facility] [place] [facility] [address] [id number] [place] [address]- 9104 Oct, [facility] [place] [facility] [address] [id number] [place] [address]- 4086 Oct, [facility] [place] [facility] [address] [id number] [place] [address]- 6745 Oct, [facility] [place] [facility] [address] [id number] [place] [address]- 8012 Oct, [facility] [place] [facility] [address] [id number] [place] [address]- 7789 Sep, [facility] [place] [facility] [address] [id number] [place] [address]- 0956 Sep, [facility] [place] [facility] [address] [id number] [place] [address]- 6738 Jul, [facility] [place] [facility] [address] [id number] [place] [address]- 6107 Jul[facility] [place] [facility] [address] [id number] [place] [address]- 4397 Jul, [facility] [place] [facility] [address] [id number] [place] [address]- 5761 Jul, [facility] [place] [facility] [address] [id number] [place] [address]- 0838 June, [facility] [place] [facility] [address] [id number] [place] [address]- 1646 June, [facility] [place] [facility] [address] [id number] [place] [address]- 9436 June, [facility] [place] [facility] [address] [id number] [place] [address]- 0660 June, [facility] [place] [facility] [address] [id number] [place] [address]- 2245 Mar, [facility] [place] [facility] [address] [id number] [place] [address]- 3006 Mar, [facility] [place] [facility] [address] [id number] [place] [address]- 6809 Mar, [facility] [place] [facility] [address] [id number] [place] [address]- 1158 Mar, [facility] [place] [facility] [address] [id number] [place] [address]- 0532 Mar, [facility] [place] [facility] [address] [id number] [place] [address]- 7982 Feb, [facility] [place] [facility] [address] [id number] [place] [address]- 2466 Feb, [facility] [place] [facility] [address] [id number] [place] [address]- 1891 Feb, [facility] [place] [facility] [address] [id number] [place] [address]- 7124 Feb, [facility] [place] [facility] [address] [id number] [place] [address]- 5768 Feb, [facility] [place] [facility] [address] [id number], [place] [address]- 6730 Feb, [facility] [place] [facility] [address] [id number], [place] [address]- 6398 Feb, [facility] [place] [facility] [address] [id number] [place] [address]- 4096 Feb, [facility] [place] [facility] [address] [id number] [place] [address]- 9609 Feb, [facility] [place] [facility] [address] [id number] [place] [address]- 9940 Feb, [facility] [place] [facility] [address] [id number] [place] [address]- 5771 Nov, [facility] [address] [id number] [place] [address]- 0193 Nov, [facility] [place] [facility] [address] [id number] [place] [address]- 4056 Nov, [facility] [place] [facility] [address] [id number] [place] [address]- 1493 Nov, [facility] [place] [facility] [address] [id number] [place] [address]- 2029 Nov, [facility] [place] [facility] [address] [id number] [place] [address]- 0189 Nov, [facility] [place] [facility] [address] [id number] [place] [address]- 0559 Aug, [facility] [place] [facility] [address] [id number] [place] [address]- 6129 Aug, [facility] [place] [facility] [address] [id number] [place] [address]- 8403 Aug, [facility] [place] [facility] [address] [id number] [place] [address]- 1650 Aug, [facility] [place] [facility] [address] [id number] [place] [address]- 1534 May, [facility] [place] [facility] [address] [id number] [place] [address]- 9070 Apr, [facility] [place] [facility] [address] [id number] [place] [address]- 2544 Apr, [facility] [place] [facility] [address] [id number] [place] [address]- 9337 Jan, [facility] [place] [facility] [address] [id number] [place] [address]- 2546 Jan, [facility] [place] [facility] [address] [id number] [place] [address]- 7947 Jan, [facility] [place] [facility] [address] [id number] [place] [address]- 7451 Jan, [facility] [place] [facility] [address] [id number] [place] [address]- 1176 Jan, [facility] [place] [facility] [address] [id number] [place] [address]- 7386 Jan, [facility] [place] [facility] [address] [id number] [place] [address]- 9156 Jan, [facility] [place] [facility] [address] [id number] [place] [address]- 3818 Jan, [facility] [place] [facility] [address] [id number] [place] [address]- 7134 Jan, [facility] [place] [facility] [address] [id number] [place] [address]- 0252 Jan, [facility] [place] [facility] [address] [id number] [place] [address]- 8435 Jan, [facility] [place] [facility] [address] [id number] [place] [address]- 4217 Jan, [facility] [place] [facility] [address] [id number] [place] [address]- 8393 Jan, [facility] [place] [facility] [address] [id number] [place] [address] Dec, [facility] [place] [facility] [address] [id number] [place] [address] Dec, [facility] [place] [facility] [address] [id number] [place] [address] Dec, [facility] [place] [facility] [address] [id number] [place] [address] Sep, [facility] [place] [facility] [address] [id number] [place] [address] Sep, [facility] [place] [facility] [address] [id number] [place] [address] Sep, [facility] [place] [facility] [address] [id number] [place] [address] Aug, [facility] [place] [facility] [address] [id number] [place] [address] Aug, [facility] [place] [facility] [address] [id number] [place] [address] Aug, [facility] [place] [facility] [address] [id number] [place] [address] June, [facility] [place] [facility] [address] [id number] [place] [address] Apr, [facility] [place] [facility] [address] [id number] [place] [address] Apr, [facility] [place] [facility] [address] [id number] [place] [address] Mar, [facility] [place] [facility] [address] [id number] [place] [address] Feb, [facility] [place] [facility] [address] [id number] [place] [address] Feb, [facility] [place] [facility] [address] [id number] [place] [address] Jan, [facility] [place] [facility] [address] [id number] [place] [address] Jan, [facility] [place] [facility] [address] [id number] [place] [address] Dec, [facility] [place] [facility] [address] [id number] [place] [address] Dec, [facility] [place] [facility] [address] [id number] [place] [address] Dec, [facility] [place] [facility] [address] [id number] [place] [address] Nov, [facility] [place] [facility] [address] [id number] [address] 15 Sep, 2010 [facility] [address] [id number] [address] Apr, [facility] [id number] [place] [address] 16 Mar, 2010 [facility] [address] [id number], [place] [address] Jan, [facility] [id number] [place] [address] Dec, [facility] [id number] [place] [address] Nov, [facility] [id number] [place] [address] Sep, [facility] [id number] [place] [address] Jul, [facility] [address] [id number], [place] [address] Feb, [facility] [address] [id number], [place] [address] Jan, IMMUNIZATIONS No Known Immunizations SOCIAL HISTORY Never Assessed REASON FOR VISIT Hydrocodone 05/22 PLAN OF CARE VITAL SIGNS MEDICATIONS Medication Instructions Dosage Frequency Start Date End Date Duration Status Hydrocodone-Acetaminophen 7.5-325 MG Orally 3 times a day 1 tablet as needed 8h May, 28 days Active RESULTS No Results PROCEDURES [...]
--- OUTSIDE RECORDS SUMMARY | 2018-01-15 21:14 | XMS REPORT ---
Author Author ROB RAMIREZ [facility] Address [address] [place] [address] Care Team Providers Care Traffic Chief Name Role Phone ROB RAMIREZ Unavailable PROBLEMS Type Condition ICD9-CM Code QCL02-MH Code Onset Dates Condition Status SNOMED Code Problem Polyneuropathy associated with underlying disease G63 Active 136771988 Problem Other chronic pain G89.29 Active 54924463 Problem Erectile dysfunction due to arterial insufficiency N52.01 Active 650561001 Problem Right leg weakness R29.898 Active [id number] Problem Morbid (severe) obesity due to excess calories E66.01 Active 551091352 Problem Morbid obesity E66.01 Active 238122421 Problem Recurrent right knee instability M23.51 Active 046801297 Problem Coronary artery disease involving [place] coronary artery of [place] 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 Active [id number] Problem Mixed hyperlipidemia E78.2 Active 747935657 Problem Cervical spinal stenosis M48.02 Active 41192172 Problem Obesity E66.9 Active 299366694 Problem HTN (hypertension) I10 Active 66667514 Problem Ingrowing nail L60.0 Active 005670084 Problem Cardiac disease I51.9 Active 63480074 Problem Foot pain, left M79.672 Active 63063239 Problem 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 Active [id number] ALLERGIES No Information ENCOUNTERS Encounter Location Date Diagnosis [facility] [id number], [place] [address] Aug, [facility] [address], [place] [address] Aug, [facility] [address], [place] [address] Jul, Cervical spinal stenosis M48.02 [facility] [address], [place] [address] Jul, Medicare annual wellness visit, initial Z00.00 ; Morbid ( severe) obesity due to excess calories E66.01 ; Coronary artery disease involving [place] coronary artery of [place] 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 ; 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 ; Polyneuropathy associated with underlying disease G63 ; HTN (hypertension) I10 ; Mixed hyperlipidemia E78.2 ; BMI 50.0-59.9, adult Z68.43 and Encounter for immunization Z23 [facility] [address] [address] 04 Jul, 2017 Cervical spinal stenosis M48.02 ; HTN (hypertension) I10 ; Coronary artery disease involving [place] coronary artery of [place] 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 and Right leg weakness R29.898 [facility] [address] [address] June, Cervical spinal stenosis M48.02 [facility] [facility] [address] [address]- [address] June, Cervical spinal stenosis M48.02 [place] [address] [address]- [address] May, Cervical spinal stenosis M48.02 [place] [address] [address]- [address] Apr, Cervical spinal stenosis M48.02 [facility] [id number] [place] [address] 36074 -3806 14 Mar, 2017 Neck pain on right side M54.2 and BMI 50.0-59.9, adult Z68.43 [place] [address] [address]- [address] 06 Mar, 2017 Cervical spinal stenosis M48.02 [facility] [address] [address]- [address] Feb, Cervical spinal stenosis M48.02 [place] [address] [address]- [address] Feb, [facility] [address] [place] [address] 36103- 8031 09 Feb, 2017 Morbid (severe) obesity due to excess calories E66.01 and Coronary artery disease involving [place] coronary artery of [place] 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 [facility] [place] [id number] [place] [address] 29305- 1575 Feb, Mixed hyperlipidemia E78.2 and HTN (hypertension) I10 [facility] [id number] [place] [address] 64793- 0688 Feb, Cervical spinal stenosis M48.02 ; HTN (hypertension) I10 ; Mixed hyperlipidemia E78.2 ; Recurrent right knee instability M23.51 and Morbid obesity E66.01 [facility] [id number] [place] [address] 77142- 8679 13 Jan, 2017 Other chronic pain G89.29 [facility] [id number] [place] [address] 28150- 5506 Dec, Other chronic pain G89.29 [facility] [id number] [place] [address] 96392- 0553 Nov, Other chronic pain G89.29 [facility] [id number] [place] [address] 99314- 7954 Oct, Other chronic pain G89.29 [facility] [id number] [place] [address] 00418- 2541 Sep, Other chronic pain G89.29 [facility] [id number] [place] [address] 35747- 9860 Sep, Other chronic pain G89.29 [facility] [id number] [place] [address] 15783- 9510 Sep, Tenderness of left calf M79.662 and Cervical spinal stenosis M48.02 [facility] [place] [id number] [place] [address] 92881- 4807 Aug, Other chronic pain G89.29 [facility] [address], [place] [address] 99[address] Aug, Cervical radiculopathy M54.12 [facility] [address], [place] [address] Aug, Cervical neuritis M54.12 [facility] [address] [place] [address] 55686- 5183 Jul, Other chronic pain G89.29 [facility] [id number] [place] [address] [id number] Jul, Dental caries K02.9 [facility] [id number] [place] [address] 99243- 9995 Jul, Other chronic pain G89.29 [facility] [id number] [place] [address] 18868- 0484 June, Other chronic pain G89.29 [facility] [address] [place] [address] [id number] May, Dental examination Z01.20 [facility] [id number] [place] [address] 19461- 9418 May, Other chronic pain G89.29 [facility] [address] [place] [address] 14669- 2047 Apr, Cervical spinal stenosis M48.02 and Drug-induced constipation K59.03 [facility] [address], [place] [address] 88[address] Apr, [facility] [id number] [place] [address] 85978- 4314 Apr, Other chronic pain G89.29 [facility] [address] [place] [address] 15377- 3973 Apr, [facility] [id number] [place] [address] 96011- 2310 Mar, [facility] [id number] [place] [address] 86694- 9893 Mar, Other chronic pain G89.29 [facility] [id number] [place] [address] 14709- 8348 Feb, Other chronic pain G89.29 [facility] [id number] [place] [address] 11080- 6195 Jan, Other chronic pain G89.29 [facility] [id number] [place] [address] 36247- 4323 Dec, [facility] [address] 84746- 0453 Dec, Other chronic pain G89.29 [facility] [id number] [place] [address] 13910- 0000 Dec, Cervical spinal stenosis M48.02 ; Encounter for immunization Z23 ; Polyneuropathy associated with underlying disease G63 and Erectile dysfunction due to arterial insufficiency N52.01 [facility] [id number] [place] [address] 31135- 2372 Nov, [facility] [id number] [place] [address] 82003- 0294 Nov, [facility] [id number] [place] [address] 66379- 3262 Oct, [facility] [id number] [place] [address] 32450- 4009 Sep, [facility] [id number] [place] [address] 10721- 5004 Aug, [facility] [id number] [place] [address] 42942- 7136 Jul, Other chronic pain G89.29 [facility] [id number] [place] [address] 12832 -6475 Jul, Angioedema, initial encounter T78.3XXA and Dental abscess K04.7 [facility] [id number] [place] [address] 78192- 3416 Jul, Leg pain M79.606 [facility] [address] 23598- 5351 June, Other chronic pain G89.29 and Encounter for immunization Z23 [facility] [address] 36771- 3457 June, [facility] [address] 03084- 7826 May, Leg pain M79.606 [place] [address] 69703- 6125 Apr, Leg pain M79.606 and Cervical spinal stenosis M48.02 [place] [address] 64419- 9071 Apr, [place] [address] 45659- 4404 Mar, High ankle sprain of left lower extremity S93.432A [place] [address] 96485- 2345 15 Mar, 2015 [place] [address] 45525- 3901 Mar, Left ankle pain M25.572 [facility] [id number] [place] [address] 85301- 0120 Mar, [facility] [id number] [place] [address] 56214- 3767 Mar, [facility] [address] 63972- 0481 Mar, Leg pain M79.606 [facility] [id number] [place] [address] 63543- 9202 Mar, [facility] [id number] [place] [address] 76100- 6114 Mar, Ankle pain M25.579 ; Cardiac disease I51.9 ; Obesity E66.9 ; Leg pain M79.606 ; HTN (hypertension) I10 ; Ingrowing nail L60.0 ; 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 and Foot pain, left M79.672 [facility] [id number] [place] [address] 09320- 0251 Feb, [facility] [id number] [place] [address] 02920- 2722 Jan, [facility] [id number] [place] [address] 04586- 9256 Dec, Cervical spinal stenosis M48.02 and Hypertension I10 [facility] [id number] [place] [address] 23880- 6797 Dec, [facility] [id number] [place] [address] 02682- 8327 Dec, [facility] [id number] [place] [address] 58989- 8420 Dec, [facility] [id number] [place] [address] 42988- 1628 Nov, [facility] [id number] [place] [address] 20931- 9653 Nov, [facility] [id number] [place] [address] 10657- 1986 Oct, [facility] [id number] [place] [address] 07105- 2928 Oct, [facility] [id number] [place] [address] 64992- 9651 Oct, [facility] [id number], [place] [address]- 6835 Oct, [facility] [address], [place] [address]- 1767 Sep, [facility] [address], [place] [address]- 8676 Sep, [facility] [id number], [place] [address]- 4778 Sep, Spinal stenosis in cervical region 723.0 ; Essential hypertension, benign 401.1 and Erectile dysfunction 607.84 [facility] [id number], [place] [address]- 9968 Sep, [facility] [id number] [place] [address] 19958- 9033 Aug, [facility] [id number] [place] [address] 13557- 2443 Aug, [facility] [id number] [place] [address] 14510- 0871 Jul, [facility] [address], [place] [address]- 8362 June, [facility] [id number], [place] [address]- 4273 June, [facility] [address], [place] [address]- 6994 June, [facility] [address], [place] [address]- 2545 June, [facility] [address], [place] [address]- 2209 June, Spinal stenosis in cervical region 723.0 and Essential hypertension, benign 401.1 [facility] [id number], [place] [address]- 3491 May, [facility] [address], [place] [address]- 5095 May, [facility] [address], [place] [address]- 7197 16 Apr, 2014 [facility] [place] [facility] [address] [id number] [place] [address]- 4572 16 Apr, 2014 [facility] [place] [facility] [address] [id number] [place] [address]- 0560 Apr, [facility] [place] [facility] [address] [id number] [place] [address]- 0382 Apr, [facility] [place] [facility] [address] [id number] [place] [address]- 9875 Mar, [facility] [place] [facility] [address] [id number] [place] [address]- 2675 Mar, [facility] [place] [facility] [address] [id number] [place] [address]- 3323 Feb, [facility] [place] [facility] [address] [id number] [place] [address]- 0025 Feb, [facility] [place] [facility] [address] [id number] [place] [address]- 0424 Feb, [facility] [place] [facility] [address] [id number] [place] [address]- 1375 Feb, [facility] [place] [facility] [address] [id number] [place] [address]- 0575 Feb, [facility] [place] [facility] [address] [id number] [place] [address]- 3226 Jan, [facility] [place] [facility] [address] [id number] [place] [address]- 5046 Jan, [facility] [place] [facility] [address] [id number] [place] [address]- 2096 15 Jan, 2014 [facility] [place] [facility] [address] [id number] [place] [address]- 2468 15 Jan, 2014 [facility] [place] [facility] [address] [id number] [place] [address]- 2768 Dec, [facility] [place] [facility] [address] [id number] [place] [address]- 5479 Dec, [facility] [place] [facility] [address] [id number] [place] [address]- 6793 Nov, [facility] [place] [facility] [address] [id number] [place] [address]- 1876 Nov, [facility] [place] [facility] [address] [id number] [place] [address]- 7317 Oct, [facility] [place] [facility] [address] [id number] [place] [address]- 9168 Oct, [facility] [place] [facility] [address] [id number] [place] [address]- 9488 Oct, [facility] [place] [facility] [address] [id number] [place] [address]- 3912 Oct, [facility] [place] [facility] [address] [id number] [place] [address]- 7730 Sep, [facility] [place] [facility] [address] [id number] [place] [address]- 3106 Sep, [facility] [place] [facility] [address] [id number] [place] [address]- 5336 Jul, [facility] [place] [facility] [address] [id number] [place] [address]- 9618 Jul, [facility] [place] [facility] [address] [id number] [place] [address]- 9842 Jul, [facility] [place] [facility] [address] [id number] [place] [address]- 0167 Jul, [facility] [place] [facility] [address] [id number] [place] [address]- 6093 June, [facility] [place] [facility] [address] [id number] [place] [address]- 7587 June, [facility] [place] [facility] [address] [id number] [place] [address]- 8520 June, [facility] [place] [facility] [address] [id number] [place] [address]- 5597 June, [facility] [place] [facility] [address] [id number] [place] [address]- 3054 Mar, [facility] [place] [facility] [address] [id number] [place] [address]- 3309 Mar, [facility] [place] [facility] [address] [id number] [place] [address]- 0745 Mar, [facility] [place] [facility] [address] [id number] [place] [address]- 3496 Mar, [facility] [place] [facility] [address] [id number] [place] [address]- 0868 Mar, [facility] [place] [facility] [address] [id number] [place] [address]- 3238 Feb, [facility] [place] [facility] [address] [id number] [place] [address]- 0736 Feb, [facility] [place] [facility] [address] [id number] [place] [address]- 6439 Feb, [facility] [place] [facility] [address] [id number] [place] [address]- 7639 Feb, [facility] [place] [facility] [address] [id number] [place] [address]- 5773 Feb, [facility] [place] [facility] [address] [id number] [place] [address]- 4287 Feb, [facility] [place] [facility] [address] [id number] [place] [address]- 1201 Feb, [facility] [place] [facility] [address] [id number] [place] [address]- 6989 Feb, [facility] [place] [facility] [address] [id number] [place] [address]- 4334 Feb, [facility] [place] [facility] [address] [id number] [place] [address]- 2546 Feb, [facility] [address] [id number] [place] [address]- 2982 Nov, [facility] [place] [facility] [address] [id number] [place] [address] 2546 Nov, [facility] [address] [id number] [place] [address]- 2089 Nov, [facility] [place] [facility] [address] [id number] [place] [address]- 2675 Nov, [facility] [address] [id number] [place] [address]- 8464 Nov, [facility] [address] [id number] [place] [address]- 2032 Nov, [facility] [address] [id number] [place] [address]- 1862 Aug, [facility] [address] [id number] [place] [address]- 4875 Aug, [facility] [place] [facility] [address] [id number] [place] [address]- 9689 Aug, [facility] [address] [id number] [place] [address]- 2877 Aug, [facility] [place] [facility] [address] [id number] [place] [address]- 2546 May, [facility] [place] [facility] [address] [id number] [place] [address]- 2546 Apr, [facility] [place] [facility] [address] [id number] [place] [address]- 2546 Apr, [facility] [place] [facility] [address] [id number] [place] [address]- 2546 Jan, [facility] [place] [facility] [address] [id number] [place] [address]- 1754 Jan, [facility] [place] [facility] [address] [id number] [place] [address]- 0654 17 Jan, 2012 [facility] [place] [facility] [address] [id number] [place] [address]- 3216 Jan, [facility] [place] [facility] [address] [id number] [place] [address]- 2109 Jan, [facility] [place] [facility] [address] [id number] [place] [address]- 9746 Jan, [facility] [place] [facility] [address] [id number] [place] 7886 Jan, [facility] [place] [facility] [address] [id number] [place] 4076 Jan, [facility] [place] [facility] [address] [id number] [place] [address]- 5290 Jan, [facility] [place] [facility] [address] [id number] [place] [address]- 9810 Jan, [facility] [place] [facility] [address] [id number] [place] [address]- 4808 Jan, [facility] [place] [facility] [address] [id number] [place] [address]- 9879 Jan, [facility] [place] [facility] [address] [id number] [place] [address]- 8041 Jan, [facility] [place] [facility] [address] [id number], [place] [address]- 4072 Dec, [facility] [place] [facility] [address] [id number] [place] [address]- 7623 Dec, [facility] [place] [facility] [address] [id number] [place] [address]- 4626 Dec, [facility] [place] [facility] [address] [id number] [place] [address]- 0703 Sep, [facility] [place] [facility] [address] [id number], [place] [address]- 0799 Sep, [facility] [address] [id number] [place] [address] Sep, [facility] [place] [facility] [address] [id number] [place] [address] Aug, [facility] [place] [facility] [address] [id number] [place] [address] Aug, [facility] [place] [facility] [address] [id number] [place] [address] Aug, [facility] [place] [facility] [address] [id number] [place] [address] June, [facility] [place] [facility] [address] [id number] [place] [address] Apr, [facility] [address] [id number] [place] [address] Apr, [facility] [place] [facility] [address] [id number] [place] [address] Mar, [facility] [place] [facility] [address] [id number] [place] [address] Feb, [facility] [place] [facility] [address] [id number] [place] [address] Feb, [facility] [address] [id number] [place] [address] Jan, [facility] [place] [facility] [address] [id number] [place] [address] Jan, [facility] [place] [facility] [address] [id number] [place] [address] Dec, [facility] [place] [facility] [address] [id number] [place] [address] Dec, [facility] [place] [facility] [address] [facility] [id number] [place] [address] Dec, [facility] [place] [facility] [address] [facility] [id number], [place] [address] Nov, [facility] [address] [facility] [id number], [place] [address] Sep, [facility] [address] [facility] [id number], [place] [address] Apr, [facility] [address] [facility] [id number], [place] [address] Mar, [facility] [address] [facility] [id number], [place] [address] Jan, [facility] [address] [facility] [id number], [place] [address] Dec, [facility] [address] [facility] [id number], [place] [address] Nov, [facility] [id number], [place] [address] Sep, [facility] [id number], [place] [address] Jul, [facility] [id number], [place] [address] Feb, [facility] [address] [id number], [place] [address] Jan, IMMUNIZATIONS No Known Immunizations SOCIAL HISTORY Never Assessed REASON FOR VISIT Hydrocodone 04/24 PLAN OF CARE VITAL SIGNS MEDICATIONS Medication Instructions Dosage Frequency Start Date End Date Duration Status Hydrocodone-Acetaminophen 7.5-325 MG Orally 3 times a day 1 tablet as needed 8h Apr, 28 days Active RESULTS No Results PROCEDURES [...]
--- OUTSIDE RECORDS SUMMARY | 2018-01-15 21:15 | XMS REPORT ---
Author Author ROB RAMIREZ Organization [facility] Address [address] [place] [address] Care Team Providers Care Driver Examiner Name Role Phone ROB RAMIREZ Unavailable PROBLEMS Type Condition ICD9-CM Code [id number] Code Onset Dates Condition Status SNOMED Code Problem Polyneuropathy associated with underlying disease G63 Active 787749010 Problem Other chronic pain G89.29 Active 73981646 Problem Erectile dysfunction due to arterial insufficiency N52.01 Active 587347776 Problem Right leg weakness R29.898 Active [id number] Problem Morbid (severe) obesity due to excess calories E66.01 Active 854976057 Problem Morbid obesity E66.01 Active 509424206 Problem Recurrent right knee instability M23.51 Active 203151164 Problem Coronary artery disease involving chipewwa coronary artery of chipewwa 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 Active 2468952356836 Problem Mixed hyperlipidemia E78.2 Active 546056663 Problem Cervical spinal stenosis M48.02 Active 52473595 Problem Obesity E66.9 Active 879681873 Problem HTN (hypertension) I10 Active 83412282 Problem Ingrowing nail L60.0 Active 732971912 Problem Cardiac disease I51.9 Active 40061760 Problem Foot pain, left M79.672 Active 83102177 Problem 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 Active [id number] ALLERGIES No Information ENCOUNTERS Encounter Location Date Diagnosis [facility] [address] [facility] [id number] [place] [address] 05 Jul, 2017 Medicare annual wellness visit, initial Z00.00 ; Morbid ( severe) obesity due to excess calories E66.01 ; Coronary artery disease involving chipewwa coronary artery of chipewwa 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 ; 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 ; Polyneuropathy associated with underlying disease G63 ; HTN (hypertension) I10 ; Mixed hyperlipidemia E78.2 ; BMI 50.0-59.9, adult Z68.43 and Encounter for immunization Z23 [place] [address] [address] Jul, Cervical spinal stenosis M48.02 ; HTN (hypertension) I10 ; Coronary artery disease involving chipewwa coronary artery of chipewwa 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 and Right leg weakness R29.898 [place] [address] [address] June, Cervical spinal stenosis M48.02 [place] [address] [address]32- 7596 June, Cervical spinal stenosis M48.02 [place] [address] [address]- 1710 May, Cervical spinal stenosis M48.02 [place] [address] [address]- 6918 Apr, Cervical spinal stenosis M48.02 [facility] [address] [address] Mar, Neck pain on right side M54.2 and BMI 50.0-59.9, adult Z68.43 [place] [address] [address] 06 Mar, 2017 Cervical spinal stenosis M48.02 [place] [address] 30596- 04[address] Feb, Cervical spinal stenosis M48.02 [place] [address] 92594- 2695 Feb, [facility] [address] [address]- [address] Feb, Morbid (severe) obesity due to excess calories E66.01 and Coronary artery disease involving chipewwa coronary artery of chipewwa 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 [facility] [address] [address]- [address] Feb, Mixed hyperlipidemia E78.2 and HTN (hypertension) I10 [facility] [address] [place] [id number] [place] [address]89- 8089 Feb, Cervical spinal stenosis M48.02 ; HTN (hypertension) I10 ; Mixed hyperlipidemia E78.2 ; Recurrent right knee instability M23.51 and Morbid obesity E66.01 [facility] [address] [place] [id number] [place] [address]80- 2627 Jan, Other chronic pain G89.29 [facility] [address] [place] [id number] [place] [address] 78876- 9078 Dec, Other chronic pain G89.29 [facility] [address] 6[address]- 6[address] Nov, Other chronic pain G89.29 [place] [address] [place] [id number] [place] [address] 90555- 4651 Oct, Other chronic pain G89.29 [facility] [address] [place] [id number] [place] [address] 99240- 4346 Sep, Other chronic pain G89.29 [facility] [address] 99165- 2771 Sep, Other chronic pain G89.29 [place] [address] [place] [id number] [place] [address] 90189- 0889 Sep, Tenderness of left calf M79.662 and Cervical spinal stenosis M48.02 [facility] [address] [place] [id number] [place] [address] 33994- 1430 Aug, Other chronic pain G89.29 [facility] [address] [place] [id number] [place] [address] 64662- 8270 Aug, Cervical radiculopathy M54.12 [facility] [address] [place] [id number] [place] [address]181 -3807 Aug, Cervical neuritis M54.12 [facility] [address] [place] [address] Jul, Other chronic pain G89.29 [facility] [id number] [place] [address] [id number] Jul, Dental caries K02.9 [facility] [address] [place] [id number] [place] [address] 71450- 8575 Jul, Other chronic pain G89.29 [facility] [address] [place] [id number] [place] [address] 92148- 7545 June, Other chronic pain G89.29 [facility] [id number] [place] [address] [id number] May, Dental examination Z01.20 [facility] [address] [place] [id number] [place] [address] 42918- 9985 May, Other chronic pain G89.29 [facility] [address] [place] [id number] [place] [address] 90007- 8509 Apr, Cervical spinal stenosis M48.02 and Drug-induced constipation K59.03 [facility] [address] [place] [id number] [place] [address] 91031- 7405 Apr, [facility] [address] [place] [id number] [place] [address] 85731- 8879 Apr, Other chronic pain G89.29 [facility] [address] [place] [address] 47475- 9268 Apr, [facility] [address] [place] [id number] [place] [address] 64665- 2543 Mar, [facility] [address] [place] [id number] [place] [address] 953319- 7749 Mar, Other chronic pain G89.29 [facility] [address] [place] [address] 135446- 1382 Feb, Other chronic pain G89.29 [facility] [address] [place] [id number] [place] [address] 94868- 8545 Jan, Other chronic pain G89.29 [facility] [address] [place] [id number] [place] [address] 36316- 9314 Dec, [facility] [address] 91952- 5820 Dec, Other chronic pain G89.29 [facility] [address] 83514- 5649 Dec, Cervical spinal stenosis M48.02 ; Encounter for immunization Z23 ; Polyneuropathy associated with underlying disease G63 and Erectile dysfunction due to arterial insufficiency N52.01 [facility] [address] 14099- 5603 Nov, [facility] [address] 46669- 2607 Nov, [facility] [address] 92448- 1201 Oct, [facility] [address] [place] [id number] [place] [address] 36402- 2961 Sep, [facility] [address] 39495- 1972 Aug, [facility] [address] 02740- 2858 Jul, Other chronic pain G89.29 [facility] [address] 8[address] -0652 Jul, Angioedema, initial encounter T78.3XXA and Dental abscess K04.7 [facility] [address] 89691- 9066 Jul, Leg pain M79.606 [facility] [address] [place] [id number] [place] [address] 86264- 5321 June, Other chronic pain G89.29 and Encounter for immunization Z23 [facility] [address] [place] [address]- [address] June, [facility] [address] [place] [id number] [place] [address] 12577- 0761 May, Leg pain M79.606 [facility] [address] [place] [id number] [place] [address] 24628- 2014 Apr, Leg pain M79.606 and Cervical spinal stenosis M48.02 [facility] [address] [place] [id number] [place] [address] 47390- 4786 Apr, [facility] [address] [place] [id number] [place] [address] 09184- 7333 Mar, High ankle sprain of left lower extremity S93.432A [place] [address] [place] [id number] [place] [address] 97462- 4763 Mar, [facility] [address] [place] [id number] [place] [address] 49844- 6851 Mar, Left ankle pain M25.572 [facility] [address] [place] [id number] [place] [address] 17083- 8013 Mar, [facility] [address] [place] [id number] [place] [address] 47114- 6442 Mar, [facility] [address] [place] [id number] [place] [address] 03751- 6855 Mar, Leg pain M79.606 [facility] [address] [place] [id number] [place] [address] 42138- 1646 Mar, [facility] [address] [place] [id number] [place] [address] 06764- 5807 Mar, Ankle pain M25.579 ; Cardiac disease I51.9 ; Obesity E66.9 ; Leg pain M79.606 ; HTN (hypertension) I10 ; Ingrowing nail L60.0 ; 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 and Foot pain, left M79.672 [facility] [address] [facility] [id number] [address] 7[address] Feb, [facility] [address] [place] [address] 10614- 5735 Jan, [facility] [address] [place] [id number] [address]- 9780 Dec, Cervical spinal stenosis M48.02 and Hypertension I10 [facility] [address] [facility] [address] [facility] [id number] [place] [address] 45510- 4389 Dec, [facility] [address] [facility] [facility] [id number] [place] [address] 91514- 9471 Dec, [facility] [address] [place] [id number] [place] [address] 24892- 4005 Dec, [facility] [address] [place] [id number] [place] [address] 28071- 6795 Nov, [facility] [address] [place] [id number] [place] [address] 79194- 0460 Nov, [facility] [address] [address]- 6421 Oct, [facility] [address] [address]- 0704 Oct, [facility] [address] [address]- 3538 Oct, [facility] [address] [address]- 3467 Oct, [facility] [address] [place] [id number] [address]- 5314 Sep, [facility] [address] [facility] [id number] [address]- 1430 Sep, [facility] [address] [address]- 4121 Sep, Spinal stenosis in cervical region 723.0 ; Essential hypertension, benign 401.1 and Erectile dysfunction 607.84 [facility] [address] [place] [id number] [place] [address]- 2913 Sep, [facility] [address] [facility] [id number] [address]- 7256 Aug, [facility] [id number] [place] [address]- 8058 Aug, [facility] [address] [id number] [address]- 2432 Jul, [facility] [address] [place] [id number] [place] [address]- 6810 June, [facility] [address] 2524 June, [facility] [address] [address]- 5311 June, [facility] [address] [address]- 6539 June, [facility] [address] [address]- 0085 June, Spinal stenosis in cervical region 723.0 and Essential hypertension, benign 401.1 [facility] [address] [place] [id number] [address]- 3074 May, [facility] [address] [address]- 3641 May, [facility] [address] [place] [id number] [address]- 0445 Apr, [facility] [address] 8955 Apr, [facility] [address] [place] [id number] 1605 Apr, [facility] [address] [place] [id number] [address]- 2121 Apr, [facility] [place] [facility] [address] [id number] [place] [address]- 0630 Mar, [facility] [place] [facility] [address] [id number] [place] [address]- 7309 Mar, [facility] [place] [facility] [address] [id number] [place] [address]- 8252 Feb, [facility] [place] [facility] [address] [id number] [place] [address]- 4283 Feb, [facility] [place] [facility] [address] [id number] [place] [address]- 0434 Feb, [facility] [place] [facility] [address] [id number] [place] [address]- 9396 Feb, [facility] [place] [facility] [address] [id number] [place] [address]- 4212 Feb, [facility] [place] [facility] [address] [id number] [place] [address]- 2653 Jan, [facility] [place] [facility] [address] [id number] [place] [address]- 4762 Jan, [facility] [place] [facility] [address] [id number] [place] [address]- 5815 Jan, [facility] [place] [facility] [address] [id number] [address]- 3775 Jan, [facility] [place] [facility] [address] [id number], [place] [address]- 8267 Dec, [facility] [place] [facility] [address] [id number] [place] [address]- 1872 Dec, [facility] [place] [facility] [address] [id number] [address]- 9074 Nov, [facility] [place] [facility] [address] [id number] [place] [address]- 2691 Nov, [facility] [place] [facility] [address] [id number] [place] [address]- 1031 Oct, [facility] [place] [facility] [address] [id number] [place] [address]- 1700 Oct, [facility] [place] [facility] [address] [id number] [place] [address]- 5752 Oct, [facility] [place] [facility] [address] [id number] [place] [address]- 1962 Oct, [facility] [place] [facility] [address] [id number] [place] [address]- 4627 Sep, [facility] [place] [facility] [address] [id number] [place] [address]- 2712 Sep, [facility] [place] [facility] [address] [id number] [place] [address]- 0942 Jul, [facility] [place] [facility] [address] [id number] [place] [address]- 5340 Jul, [facility] [place] [facility] [address] [id number] [place] [address]- 3046 Jul, [facility] [place] [facility] [address] [id number] [place] [address]- 6639 Jul, [facility] [place] [facility] [address] [id number] [place] [address]- 2650 June, [facility] [place] [facility] [address] [id number] [place] [address]- 2714 June, [facility] [place] [facility] [address] [id number] [place] [address]- 0099 June, [facility] [place] [facility] [address] [id number] [place] [address]- 0555 June, [facility] [place] [facility] [address] [id number] [place] [address]- 0847 Mar, [facility] [place] [facility] [address] [id number] [place] [address]- 6428 Mar, [facility] [place] [facility] [address] [id number] [place] [address]- 5361 Mar, [facility] [place] [facility] [address] [id number] [place] [address]- 1458 Mar, [facility] [place] [facility] [address] [id number] [place] [address]- 2208 Mar, [facility] [place] [facility] [address] [id number] [place] [address]- 3830 Feb, [facility] [place] [facility] [address] [id number] [place] [address]- 9465 Feb, [facility] [place] [facility] [address] [id number] [place] [address]- 9550 Feb, [facility] [place] [facility] [address] [id number] [place] [address]- 2783 Feb, [facility] [place] [facility] [address] [id number] [place] [address]- 2456 Feb, [facility] [place] [facility] [address] [id number] [place] [address]- 2729 Feb, [facility] [place] [facility] [address] [id number] [place] [address]- 5081 Feb, [facility] [place] [facility] [address] [id number] [place] [address]- 2613 Feb, [facility] [place] [facility] [address] [id number], [place] [address]- 9131 Feb, [facility] [place] [facility] [address] [id number] [place] [address]- 3831 Feb, [facility] [place] [facility] [address] [id number] [place] [address]- 6409 Nov, [facility] [place] [facility] [address] [id number] [place] [address]- 0140 Nov, [facility] [place] [facility] [address] [id number] [place] [address]- 7450 Nov, [facility] [address] [id number] [place] [address]- 5983 Nov, [facility] [place] [facility] [address] [id number] [place] [address]- 5594 Nov, [facility] [address] [id number] [place] [address]- 7566 Nov, [facility] [place] [facility] [address] [id number] [place] [address]- 9198 Aug, [facility] [address] [id number] [place] [address]- 4983 Aug, [facility] [address] [id number] [place] [address]- 0034 Aug, [facility] [address] [id number] [place] [address]- 4930 Aug, [facility] [address] [id number] [place] [address]- 1282 May, [facility] [address] [id number] [place] [address]- 3984 Apr, [facility] [address] [id number] [place] [address]- 5490 Apr, [facility] [address] [id number] [place] [address]- 3796 Jan, [facility] [place] [facility] [address] [id number] [place] [address]- 0500 Jan, [facility] [place] [facility] [address] [id number] [place] [address]- 8956 Jan, [facility] [place] [facility] [address] [id number] [place] [address]- 4129 Jan, [facility] [place] [facility] [address] [id number] [place] [address]- 4396 Jan, [facility] [place] [facility] [address] [id number] [place] [address]- 0803 17 Jan, 2012 [facility] [place] [facility] [address] [id number] [place] [address]- 0956 17 Jan, 2012 [facility] [place] [facility] [address] [id number] [place] [address] 2546 17 Jan, 2012 [facility] [place] [facility] [address] [id number] [place] [address]- 4966 Jan, [facility] [place] [facility] [address] [id number] [place] [address] 2541 Jan, [facility] [place] [facility] [address] [id number] [place] [address]- 8916 Jan, [facility] [place] [facility] [address] [id number] [place] [address]- 7098 Jan, [facility] [place] [facility] [address] [id number] [place] [address]- 0064 Jan, [facility] [place] [facility] [address] [id number] [place] [address]- 8276 Dec, [facility] [place] [facility] [address] [id number] [place] [address]- 0663 Dec, [facility] [place] [facility] [address] [id number] [place] [address]- 4594 Dec, [facility] [place] [facility] [address] [id number] [place] [address]- 7011 Sep, [facility] [place] [facility] [address] [id number] [place] [address] Sep, [facility] [place] [facility] [address] [id number] [place] [address] Sep, [facility] [place] [facility] [address] [id number] [place] [address] Aug, [facility] [place] [facility] [address] [id number] [place] [address] Aug, [facility] [place] [facility] [address] [id number] [place] [address] Aug, [facility] [place] [facility] [address] [id number] [place] [address] June, [facility] [place] [facility] [address] [id number] [place] [address] Apr, [facility] [place] [facility] [address] [id number] [place] [address] Apr, [facility] [place] [facility] [address] [id number] [place] [address] Mar, [facility] [place] [facility] [address] [id number] [place] [address] Feb, [facility] [place] [facility] [address] [id number] [place] [address] Feb, [facility] [place] [facility] [address] [id number] [place] [address] Jan, [facility] [place] [facility] [address] [id number] [place] [address] Jan, [facility] [place] [facility] [address] [id number] [place] [address] Dec, [facility] [place] [facility] [address] [id number] [address] Dec, [facility] [place] [facility] [address] [id number] [address] Dec, [facility] [place] [facility] [address] [id number] [place] [address] Nov, [facility] [place] [facility] [address] [id number] [place] [address] Sep, [facility] [place] [facility] [address] [id number] [place] [address] Apr, [facility] [place] [facility] [address] [id number] [address] Mar, 2010 [facility] [id number] [address] Jan, [facility] [id number] [address] Dec, [facility] [id number] [address] Nov, [facility] [id number] [address] Sep, [facility] [id number] [address] Jul, [facility] [id number] [address] Feb, [facility] [id number] [address] Jan, IMMUNIZATIONS No Known Immunizations SOCIAL HISTORY Never Assessed REASON FOR VISIT Hydrocodone 02/27 PLAN OF CARE VITAL SIGNS MEDICATIONS Medication Instructions Dosage Frequency Start Date End Date Duration Status Hydrocodone-Acetaminophen 7.5-325 MG Orally 3 times a day 1 tablet as needed 8h 15 Feb, 2017 28 days Active RESULTS No Results PROCEDURES No Known procedures INSTRUCTIONS MEDICATIONS ADMINISTERED No Known Medications MEDICAL (GENERAL) HISTORY Type Description Date Medical History spinal compression fracture Medical History cardiovascular disease Medical History stent placed 03-07-15 Surgical History cardiac stent 03-07-15 Surgical History Cardiac stent 11/2015 Hospitalization History [place] with stent placement 03-06-15 Hospitalization History Cardiac Stent Collapsed/Heart attack 11/2015
--- OUTSIDE RECORDS SUMMARY | 2018-01-15 21:15 | XMS REPORT ---
Author Author ROB RAMIREZ Organization [facility] Address [address] [place] [address] Care Team Providers Care Spine Specialist Name Role Phone ROB RAMIREZ Unavailable PROBLEMS Type Condition ICD9-CM Code [id number] Code Onset Dates Condition Status SNOMED Code Problem Ingrowing nail L60.0 Active 200707199 Problem 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 Active 181217965 Problem Cardiac disease I51.9 Active 76367608 Problem Cervical spinal stenosis M48.02 Active 45642053 Problem Other chronic pain G89.29 Active 24830095 Problem Polyneuropathy associated with underlying disease G63 Active 633273041 Problem Obesity E66.9 Active 468527784 Problem Foot pain, left M79.672 Active 65913152 Problem Erectile dysfunction due to arterial insufficiency N52.01 Active 325710160 Problem HTN (hypertension) I10 Active [id number] ALLERGIES No Information SOCIAL HISTORY Never Assessed PLAN OF CARE VITAL SIGNS MEDICATIONS Medication Instructions Dosage Frequency Start Date End Date Duration Status Hydrocodone-Acetaminophen 7.5-325 MG Orally 3 times a day 1 tablet as needed 8h Jul, 28 days Active RESULTS No Results PROCEDURES No Known procedures IMMUNIZATIONS No Known Immunizations MEDICAL (GENERAL) HISTORY Type Description Date Medical History spinal compression fracture Medical History cardiovascular disease Medical History stent placed 03-07-15 Surgical History cardiac stent 03-07-15 Surgical History Cardiac stent 11/2015 Hospitalization History [place] with stent placement 03-06-15 Hospitalization History Cardiac Stent Collapsed/Heart attack 11/2015
--- OUTSIDE RECORDS SUMMARY | 2018-01-15 21:15 | XMS REPORT ---
Author Author ROB RAMIREZ Organization [facility] Address [address] [place] [address] Care Team Providers Care Screedman Name Role Phone ROB RAMIREZ Unavailable PROBLEMS Type Condition ICD9-CM Code PHC11-[id number] Code Onset Dates Condition Status SNOMED Code Problem Ingrowing nail L60.0 Active 667766408 Problem 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 Active 003277215 Problem Cardiac disease I51.9 Active 01307343 Problem Cervical spinal stenosis M48.02 Active 63710678 Problem Other chronic pain G89.29 Active 36139896 Problem Polyneuropathy associated with underlying disease G63 Active 107686286 Problem Obesity E66.9 Active 571296433 Problem Foot pain, left M79.672 Active 75395835 Problem Erectile dysfunction due to arterial insufficiency N52.01 Active 523633159 Problem HTN (hypertension) I10 Active 36909218 ALLERGIES No Information SOCIAL HISTORY Never Assessed PLAN OF CARE VITAL SIGNS MEDICATIONS Medication Instructions Dosage Frequency Start Date End Date Duration Status Hydrocodone-Acetaminophen 7.5-325 MG Orally 3 times a day 1 tablet as needed 8h 13 Mar, 2016 Active RESULTS No Results PROCEDURES No Known procedures IMMUNIZATIONS No Known Immunizations MEDICAL (GENERAL) HISTORY Type Description Date Medical History spinal compression fracture Medical History cardiovascular disease Medical History stent placed 03-07-15 Surgical History cardiac stent 03-07-15 Surgical History Cardiac stent 11/2015 Hospitalization History [place] with stent placement 03-06-15 Hospitalization History Cardiac Stent Collapsed/Heart attack 11/2015
--- OUTSIDE RECORDS SUMMARY | 2018-01-15 21:15 | XMS REPORT ---
Author Author DINORA KAHN Organization [facility] Address [address] [place] [address] Care Team Providers Care Liquefied Natural Gas Operator Name Role Phone KAHNDIANNEDINORA Unavailable PROBLEMS Type Condition ICD9-CM Code [id number] Code Onset Dates Condition Status SNOMED Code Problem Ingrowing nail L60.0 Active 219999531 Problem 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 Active 787941594 Problem Cardiac disease I51.9 Active 61119462 Problem Cervical spinal stenosis M48.02 Active 53255470 Problem Other chronic pain G89.29 Active 81319468 Problem Polyneuropathy associated with underlying disease G63 Active 193455643 Problem Obesity E66.9 Active 252005372 Problem Foot pain, left M79.672 Active 33723279 Problem Erectile dysfunction due to arterial insufficiency N52.01 Active 583142060 Problem HTN (hypertension) I10 Active 84155683 ALLERGIES Unknown Allergies SOCIAL HISTORY No smoking Hx information available PLAN OF CARE VITAL SIGNS MEDICATIONS Medication Instructions Dosage Frequency Start Date End Date Duration Status Hydrocodone-Acetaminophen 7.5-325 MG TAKE ONE TABLET BY MOUTH THREE TIMES DAILY NEEDED FOR PAIN Feb, 28 Active RESULTS No Results PROCEDURES No Known procedures IMMUNIZATIONS No Known Immunizations
--- OUTSIDE RECORDS SUMMARY | 2018-01-15 21:15 | XMS REPORT ---
Author Author ROB RAMIREZ [facility] Address [address] [place] [address] Care Team Providers Care Garland Maker Name Role Phone ROB RAMIREZ Unavailable PROBLEMS Type Condition ICD9-CM Code KZW36-GQ Code Onset Dates Condition Status SNOMED Code Problem Ingrowing nail L60.0 Active 547997941 Problem 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 Active 082872121 Problem Cardiac disease I51.9 Active 75932957 Problem Cervical spinal stenosis M48.02 Active 54244599 Problem Other chronic pain G89.29 Active 41431173 Problem Polyneuropathy associated with underlying disease G63 Active 213692547 Problem Obesity E66.9 Active 814405486 Problem Foot pain, left M79.672 Active 58789283 Problem Erectile dysfunction due to arterial insufficiency N52.01 Active 254119080 Problem HTN (hypertension) I10 Active 86008535 ALLERGIES No Information SOCIAL HISTORY Never Assessed PLAN OF CARE VITAL SIGNS MEDICATIONS Unknown Medications RESULTS No Results PROCEDURES No Known procedures IMMUNIZATIONS No Known Immunizations MEDICAL (GENERAL) HISTORY Type Description Date Medical History spinal compression fracture Medical History cardiovascular disease Medical History stent placed 03-07-15 Surgical History cardiac stent 03-07-15 Surgical History Cardiac stent 11/2015 Hospitalization History [place] with stent placement 03-06-15 Hospitalization History Cardiac Stent Collapsed/Heart attack 11/2015
--- OUTSIDE RECORDS SUMMARY | 2018-01-15 21:16 | XMS REPORT ---
Author Author ROB RAMIREZ Organization [facility] Address [address] [place] [address] Care Team Providers Care Ncqa Specialist Name Role Phone ROB RAMIREZ Unavailable PROBLEMS Type Condition ICD9-CM Code [id number] Code Onset Dates Condition Status SNOMED Code Problem 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 Active 758630067 Problem Erectile dysfunction due to arterial insufficiency N52.01 Active 126767165 Problem Polyneuropathy associated with underlying disease G63 Active 986577019 Problem Morbid (severe) obesity due to excess calories E66.01 Active 728789945 Problem Coronary artery disease involving north fork coronary artery of north fork 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 Active 9012427212001 Problem Recurrent right knee instability M23.51 Active 827068917 Problem Other chronic pain G89.29 Active 07029400 Problem Mixed hyperlipidemia E78.2 Active 927898947 Problem Morbid obesity E66.01 Active 989906196 Problem Foot pain, left M79.672 Active 90208202 Problem Obesity E66.9 Active 487652587 Problem Cervical spinal stenosis M48.02 Active 32012191 Problem HTN (hypertension) I10 Active 92265122 Problem Ingrowing nail L60.0 Active 608032456 Problem Cardiac disease I51.9 Active 72670254 ALLERGIES No Information ENCOUNTERS Encounter Location Date Diagnosis [facility] [address], [place] [address] May, Cervical spinal stenosis M48.02 [facility] [id number] [place] [address] 22829- 8933 Apr, Cervical spinal stenosis M48.02 [facility] [id number] [place] [address] 52249 -4514 14 Mar, 2017 Neck pain on right side M54.2 and BMI 50.0-59.9, adult Z68.43 [facility] [id number] [place] [address] 41615- 4661 Mar, Cervical spinal stenosis M48.02 [facility] [id number] [place] [address] 85294- 2765 Feb, Cervical spinal stenosis M48.02 [facility] [id number] [place] [address] 09835- 7813 Feb, [facility] [id number] [place] [address] 85940- 4704 Feb, Morbid (severe) obesity due to excess calories E66.01 and Coronary artery disease involving north fork coronary artery of north fork 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 [facility] [id number] [place] [address] 96171- 4884 Feb, Mixed hyperlipidemia E78.2 and HTN (hypertension) I10 [facility] [address] 90838- 9572 Feb, Cervical spinal stenosis M48.02 ; HTN (hypertension) I10 ; Mixed hyperlipidemia E78.2 ; Recurrent right knee instability M23.51 and Morbid obesity E66.01 [facility] [id number] [place] [address] 93453- 2632 Jan, Other chronic pain G89.29 [facility] [id number] [place] [address] 51013- 7631 Dec, Other chronic pain G89.29 [facility] [id number] [place] [address] 20323- 1905 Nov, Other chronic pain G89.29 [facility] [id number] [place] [address] 35472- 7637 Oct, Other chronic pain G89.29 [facility] [id number] [place] [address] 86677- 9436 Sep, Other chronic pain G89.29 [facility] [address] 38706- 1034 Sep, Other chronic pain G89.29 [facility] [id number] [place] [address] 47276- 4059 Sep, Tenderness of left calf M79.662 and Cervical spinal stenosis M48.02 [facility] [id number] [place] [address] 62158- 8840 Aug, Other chronic pain G89.29 [facility] [id number] [place] [address] 38016- 5592 Aug, Cervical radiculopathy M54.12 [facility] [id number] [place] [address] 81694 -7610 Aug, Cervical neuritis M54.12 [facility] [id number] [place] [address] 80219- 4870 Jul, Other chronic pain G89.29 [facility] [address] [id number] Jul, Dental caries K02.9 [facility] [address] 82924- 9585 Jul, Other chronic pain G89.29 [facility] [id number] [place] [address] 46826- 3497 June, Other chronic pain G89.29 [facility] [id number] [place] [address] [id number] May, Dental examination Z01.20 [facility] [id number] [place] [address] 16151- 1355 May, Other chronic pain G89.29 [facility] [id number] [place] [address] 03935- 2614 Apr, Cervical spinal stenosis M48.02 and Drug-induced constipation K59.03 [facility] [id number] [place] [address] 42818- 6897 Apr, [facility] [address], [place] [address] 0232 13 Apr, 2016 Other chronic pain G89.29 [facility] [id number] [place] [address] 92951- 4062 10 Apr, 2016 [facility] [address], [place] [address] 4311 Mar, [facility] [id number] [place] [address] 42103- 0217 Mar, Other chronic pain G89.29 [facility] [address] [place] [address] 115762- 1715 Feb, Other chronic pain G89.29 [facility] [id number] [place] [address] 27172- 3998 15 Jan, 2016 Other chronic pain G89.29 [facility] [id number] [place] [address] 81383- 9369 Dec, [facility] [id number] [place] [address] 58953- 7020 Dec, Other chronic pain G89.29 [facility] [id number] [place] [address] 72679- 6544 Dec, Cervical spinal stenosis M48.02 ; Encounter for immunization Z23 ; Polyneuropathy associated with underlying disease G63 and Erectile dysfunction due to arterial insufficiency N52.01 [facility] [address], [place] [address]- 9862 Nov, [facility] [address] [place] [address] 70702- 2893 Nov, [facility] [id number] [place] [address] 27081- 3624 Oct, [facility] [address] [place] [address] 94020- 8892 Sep, [facility] [id number] [place] [address] 65859- 6232 Aug, [facility] [address] [place] [address] 29813- 2335 Jul, Other chronic pain G89.29 [facility] [id number] [place] [address] 58148 -7053 Jul, Angioedema, initial encounter T78.3XXA and Dental abscess K04.7 [facility] [address] 23525- 6606 Jul, Leg pain M79.606 [facility] [address] 95317- 3162 June, Other chronic pain G89.29 and Encounter for immunization Z23 [facility] [id number] [place] [address] 86970- 9366 June, [facility] [address] 97709- 3455 May, Leg pain M79.606 [facility] [id number] [place] [address] 27515- 4417 Apr, Leg pain M79.606 and Cervical spinal stenosis M48.02 [facility] [id number] [place] [address] 55877- 8733 Apr, [facility] [id number] [place] [address] 52819- 9651 Mar, High ankle sprain of left lower extremity S93.432A [facility] [id number] [place] [address] 86773- 4421 Mar, [facility] [id number] [place] [address] 37283- 7899 Mar, Left ankle pain M25.572 [facility] [address] [place] [address] 63988- 8804 Mar, [facility] [id number] [place] [address] 81284- 4935 Mar, [facility] [id number] [place] [address] 62300- 5090 Mar, Leg pain M79.606 [facility] [id number] [place] [address] 14808- 1918 Mar, [facility] [address] 49055- 1338 Mar, Ankle pain M25.579 ; Cardiac disease I51.9 ; Obesity E66.9 ; Leg pain M79.606 ; HTN (hypertension) I10 ; Ingrowing nail L60.0 ; 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 and Foot pain, left M79.672 [facility] [id number] [place] [address] 64024- 6640 Feb, [facility] [id number] [place] [address] 24005- 5981 Jan, [facility] [id number] [place] [address] 10816- 0905 Dec, Cervical spinal stenosis M48.02 and Hypertension I10 [facility] [id number] [place] [address] 72544- 6407 Dec, [facility] [id number] [place] [address] 40600- 5484 Dec, [facility] [id number] [place] [address] 71629- 6268 Dec, [facility] [id number] [place] [address] 70111- 5399 Nov, [facility] [id number] [place] [address] 67193- 9539 Nov, [facility] [id number] [place] [address] 54039- 2040 Oct, [facility] [address], [place] [address]- 2245 Oct, [facility] [address], [place] [address]- 2537 Oct, [facility] [address], [place] [address]- 2546 Oct, [facility] [address] [place] [address] 10459- 0436 Sep, [facility] [id number] [address]- 8918 Sep, [facility] [id number] [place] [address] 13850- 4493 Sep, Spinal stenosis in cervical region 723.0 ; Essential hypertension, benign 401.1 and Erectile dysfunction 607.84 [facility] [address], [place] [address]- 9149 Sep, [facility] [address], [place] [address]- 9309 Aug, [facility] [address], [place] [address]- 9066 Aug, [facility] [address], [place] [address]- 2756 Jul, [facility] [address], [place] [address]- 5165 June, [facility] [address], [place] [address]- 1801 June, [facility] [address], [place] [address]- 9416 June, [facility] [address], [place] [address]- 5436 June, [facility] [id number] [address]- 8456 05 May, 2015 Spinal stenosis in cervical region 723.0 and Essential hypertension, benign 401.1 [facility] [id number] [address]- 7842 14 May, 2014 [facility] [address] [facility] [id number] [place] [address]- 3942 13 May, 2014 [facility] [address] [address]- 8078 16 Apr, 2014 [facility] [address] [facility] [id number] [address]- 5064 16 Apr, 2014 [facility] [address] [facility] [id number] [place] [address]- 4809 Apr, [facility] [id number] [address]- 2205 Apr, [facility] [address], [place] [address]- 2630 16 Mar, 2014 [facility] [address] [address]- 1450 Mar, [facility] [address] [address]- 1554 Feb, [facility] [address] [address]- 3024 Feb, [facility] [address], [place] [address]- 9485 Feb, [facility] [address] [facility] [id number], [place] [address]- 4536 Feb, [facility] [id number] 5466 Feb, [facility] [address] [facility] [id number], [place] [address]- 4116 Jan, [facility] [id number] 0530 Jan, [facility] [place] [facility] [address] [id number] [place] [address]- 6245 Jan, [facility] [place] [facility] [address] [id number] [place] [address]- 7511 Jan, [facility] [place] [facility] [address] [id number] [place] [address]- 5799 Dec, [facility] [place] [facility] [address] [id number] [place] [address]- 5176 Dec, [facility] [place] [facility] [address] [id number] [place] [address]- 4630 Nov, [facility] [place] [facility] [address] [id number] [place] [address]- 2485 Nov, [facility] [place] [facility] [address] [id number] [place] [address]- 6130 Oct, [facility] [place] [facility] [address] [id number] [place] [address]- 2320 Oct, [facility] [place] [facility] [address] [id number] [place] [address]- 3873 Oct, [facility] [place] [facility] [address] [id number] [place] [address]- 1054 Oct, [facility] [place] [facility] [address] [id number] [place] [address]- 1842 Sep, [facility] [place] [facility] [address] [id number] [place] [address]- 9416 Sep, [facility] [place] [facility] [address] [id number] [place] [address]- 4393 Jul, [facility] [place] [facility] [address] [id number] [place] [address]- 1299 Jul, [facility] [place] [facility] [address] [id number] [place]- 4634 Jul, [facility] [place] [facility] [address] [id number] [place] [address]- 6490 Jul, [facility] [place] [facility] [address] [id number] [place] [address]- 6358 June, [facility] [place] [facility] [address] [id number] [place] [address]- 1474 June, [facility] [place] [facility] [address] [id number] [place] [address]- 0871 June, [facility] [place] [facility] [address] [id number] [place] [address]- 7762 June, [facility] [place] [facility] [address] [id number] [place] [address]- 5192 Mar, [facility] [place] [facility] [address] [id number] [place] [address]- 9598 Mar, [facility] [place] [facility] [address] [id number] [place] [address]- 1631 Mar, [facility] [place] [facility] [address] [id number] [place] [address]- 6448 Mar, [facility] [place] [facility] [address] [id number] [place] [address]- 2726 Mar, [facility] [place] [facility] [address] [id number] [place] [address]- 7984 Feb, [facility] [place] [facility] [address] [id number] [place] [address]- 0461 Feb, [facility] [place] [facility] [address] [id number] [place] [address]- 0123 Feb, [facility] [place] [facility] [address] [id number] [place] [address]- 7018 Feb, [facility] [place] [facility] [address] [id number] [place] [address]- 4038 Feb, [facility] [place] [facility] [address] [id number] [place] [address]- 8441 Feb, [facility] [place] [facility] [address] [id number] [place] [address]- 9679 Feb, [facility] [place] [facility] [address] [id number] [place] [address]- 7232 Feb, [facility] [place] [facility] [address] [id number] [place] [address] 2546 Feb, [facility] [place] [facility] [address] [id number] [place] [address]- 0321 Feb, [facility] [place] [facility] [address] [id number] [place] [address]- 2940 Nov, [facility] [place] [facility] [address] [id number] [place] [address]- 3446 Nov, [facility] [place] [facility] [address] [id number] [place] [address]- 3538 Nov, [facility] [place] [facility] [address] [id number] [place] [address]- 2150 Nov, [facility] [place] [facility] [address] [id number] [place] [address]- 6835 Nov, [facility] [place] [facility] [address] [id number] [place] [address]- 4850 Nov, [facility] [place] [facility] [address] [id number] [place] [address]- 8330 Aug, [facility] [place] [facility] [address] [id number] [place] [address]- 3210 Aug, [facility] [place] [facility] [address] [id number] [place] [address]- 7565 Aug, [facility] [place] [facility] [address] [id number] [place] [address]- 1532 Aug, [facility] [place] [facility] [address] [id number] [place] [address]- 2546 May, [facility] [place] [facility] [address] [id number] [place] [address]- 0569 Apr, [facility] [address] [id number] [place] [address]- 7619 11 Apr, 2012 [facility] [place] [facility] [address] [id number] [place] [address]- 1452 17 Jan, 2012 [facility] [place] [facility] [address] [id number] [place] 4089 17 Jan, 2012 [facility] [place] [facility] [address] [id number] [place] [address]- 9531 17 Jan, 2012 [facility] [place] [facility] [address] [id number] [place] [address]- 7207 17 Jan, 2012 [facility] [place] [facility] [address] [id number] [place] [address]- 7606 17 Jan, 2012 [facility] [place] [facility] [address] [id number] [place] [address]- 7678 Jan, [facility] [place] [facility] [address] [id number] [place] [address]- 6936 Jan, [facility] [place] [facility] [address] [id number] [place] [address]- 6089 Jan, [facility] [place] [facility] [address] [id number] [place] [address]- 2691 Jan, [facility] [place] [facility] [address] [id number] [place] [address]- 6696 Jan, [facility] [place] [facility] [address] [id number] [place] [address]- 4799 Jan, [facility] [place] [facility] [address] [id number] [place] [address]- 5724 Jan, [facility] [place] [facility] [address] [id number] [place] [address]- 2784 Jan, [facility] [place] [facility] [address] [id number] [place] [address]- 9184 Dec, [facility] [place] [facility] [address] [id number] [place] [address]- 0474 Dec, [facility] [place] [facility] [address] [id number] [place] [address]- 2477 Dec, [facility] [place] [facility] [address] [id number] [place] [address]- 5869 Sep, [facility] [place] [facility] [address] [id number] [place] [address]- 0809 Sep, [facility] [place] [facility] [address] [id number] [place] [address]- 9599 Sep, [facility] [place] [facility] [address] [id number] [place] [address]- 0626 Aug, [facility] [place] [facility] [address] [id number] [place] [address]- 9938 Aug, [facility] [place] [facility] [address] [id number] [place] [address]- 2666 Aug, [facility] [place] [facility] [address] [id number] [place] [address]- 7052 June, [facility] [place] [facility] [address] [id number] [place] [address] Apr, [facility] [place] [facility] [address] [id number] [place] [address] Apr, [facility] [place] [facility] [address] [id number] [place] [address] Mar, [facility] [place] [facility] [address] [id number] [place] [address] Feb, [facility] [place] [facility] [address] [id number] [place] [address] Feb, [facility] [place] [facility] [address] [id number] [place] [address] Jan, [facility] [place] [facility] [address] [id number] [place] [address] Jan, [facility] [address] [facility] [id number] [address] Dec, [facility] [id number] [address] Dec, [facility] [id number] [address] Dec, [facility] [id number], [place] [address] Nov, [facility] [address] [facility] [id number], [place] [address] Sep, [facility] [id number] [place] [address] Apr, [facility] [id number] [address] 16 Mar, 2010 [facility] [id number], [place] [address] Jan, [facility] [id number], [place] [address] Dec, [facility] [id number], [place] [address] Nov, [facility] [id number], [place] [address] Sep, [facility] [id number] [place] [address] Jul, [facility] [id number] [address] Feb, [facility] [id number] [place] [address] Jan, IMMUNIZATIONS No Known Immunizations SOCIAL HISTORY Never Assessed REASON FOR VISIT Hydrocodone- 11/07 PLAN OF CARE VITAL SIGNS MEDICATIONS Medication Instructions Dosage Frequency Start Date End Date Duration Status Hydrocodone-Acetaminophen 7.5-325 MG Orally 3 times a day 1 tablet as needed 8h Oct, 28 days Active RESULTS No Results PROCEDURES [...]
--- OUTSIDE RECORDS SUMMARY | 2018-01-15 21:16 | XMS REPORT ---
Author Author ROB RAMIREZ Organization [facility] Address [address] [place] [address] Care Team Providers Care Ammunition Officer Name Role Phone ROB RAMIREZ Unavailable PROBLEMS Type Condition ICD9-CM Code YRQ15-ZS Code Onset Dates Condition Status SNOMED Code Problem Polyneuropathy associated with underlying disease G63 Active 005606962 Problem Other chronic pain G89.29 Active 41843217 Problem Erectile dysfunction due to arterial insufficiency N52.01 Active 609963814 Problem Right leg weakness R29.898 Active [id number] Problem Morbid (severe) obesity due to excess calories E66.01 Active 840900445 Problem Morbid obesity E66.01 Active 603708174 Problem Recurrent right knee instability M23.51 Active 696645271 Problem Coronary artery disease involving [place] coronary artery of [place] 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 Active 7341281982769 Problem Mixed hyperlipidemia E78.2 Active 879265317 Problem Cervical spinal stenosis M48.02 Active 69888845 Problem Obesity E66.9 Active 446469620 Problem HTN (hypertension) I10 Active 76195789 Problem Ingrowing nail L60.0 Active 763714957 Problem Cardiac disease I51.9 Active 52105993 Problem Foot pain, left M79.672 Active 13618339 Problem 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 Active [id number] ALLERGIES No Information ENCOUNTERS Encounter Location Date Diagnosis [facility] [address] [facility] [id number] [address] Jul, Medicare annual wellness visit, initial Z00.00 ; Morbid ( severe) obesity due to excess calories E66.01 ; Coronary artery disease involving [place] coronary artery of [place] 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 ; 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 ; Polyneuropathy associated with underlying disease G63 ; HTN (hypertension) I10 ; Mixed hyperlipidemia E78.2 ; BMI 50.0-59.9, adult Z68.43 and Encounter for immunization Z23 [place] [address] [address] Jul, Cervical spinal stenosis M48.02 ; HTN (hypertension) I10 ; Coronary artery disease involving [place] coronary artery of [place] 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 and Right leg weakness R29.898 [place] [address] [address] June, Cervical spinal stenosis M48.02 [place] [address] [address]662- 1496 June, Cervical spinal stenosis M48.02 [place] [address] [address]- 5910 May, Cervical spinal stenosis M48.02 [place] [address] [address]- 2863 Apr, Cervical spinal stenosis M48.02 [facility] WALK IN [facility] [address] [address] Mar, Neck pain on right side M54.2 and BMI 50.0-59.9, adult Z68.43 [place] [address] [address]- [address] 06 Mar, 2017 Cervical spinal stenosis M48.02 [place] [address] 59358- 8958 Feb, Cervical spinal stenosis M48.02 [place] [address] [address]66- 0065 Feb, [facility] [address] [address]- [address]5 Feb, Morbid (severe) obesity due to excess calories E66.01 and Coronary artery disease involving [place] coronary artery of [place] 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 [facility] [address] [address]- [address] Feb, Mixed hyperlipidemia E78.2 and HTN (hypertension) I10 [facility] [address] [place] [id number] [place] [address] 59118- 1793 Feb, Cervical spinal stenosis M48.02 ; HTN (hypertension) I10 ; Mixed hyperlipidemia E78.2 ; Recurrent right knee instability M23.51 and Morbid obesity E66.01 [facility] [address] [place] [id number] [place] [address] 35857- 2098 Jan, Other chronic pain G89.29 [facility] [address] [place] [id number] [place] [address] 66649- 1520 Dec, Other chronic pain G89.29 [facility] [address] 56198- 3246 Nov, Other chronic pain G89.29 [place] [address] [place] [id number] [place] [address] 92378- 3293 Oct, Other chronic pain G89.29 [facility] [address] [place] [id number] [place] [address] 49914- 1849 Sep, Other chronic pain G89.29 [facility] [address] [address]188- 5755 Sep, Other chronic pain G89.29 [place] [address] [place] [id number] [place] [address] 67922- 9788 Sep, Tenderness of left calf M79.662 and Cervical spinal stenosis M48.02 [facility] [address] [place] [id number] [place] [address] 03877- 3617 Aug, Other chronic pain G89.29 [facility] [address] [place] [id number] [place] [address] 73274- 4019 Aug, Cervical radiculopathy M54.12 [facility] [address] [place] [id number] [place] [address] 8[address]34 -5043 Aug, Cervical neuritis M54.12 [facility] [address] [place] [address] Jul, Other chronic pain G89.29 [facility] [address] [place] [id number] Jul, Dental caries K02.9 [facility] [address] [place] [id number] [place] [address] 46379- 3691 Jul, Other chronic pain G89.29 [facility] [address] [place] [id number] [place] [address] 41400- 4854 June, Other chronic pain G89.29 [facility] [address] [place] [address] [id number] May, Dental examination Z01.20 [facility] [address] [place] [id number] [place] [address] 41685- 5208 May, Other chronic pain G89.29 [facility] [address] [place] [id number] [place] [address] 13022- 7583 Apr, Cervical spinal stenosis M48.02 and Drug-induced constipation K59.03 [facility] [address] [place] [id number] [place] [address] 11304- 3618 Apr, [facility] [address] [place] [id number] [place] [address] 74066- 9420 Apr, Other chronic pain G89.29 [facility] [address] [place] [address] 92734- 1849 Apr, [facility] [address] [place] [id number] [place] [address] 61137- 2541 Mar, [facility] [address] [place] [id number] [place] [address] 053825- 9233 Mar, Other chronic pain G89.29 [facility] [address] [place] [address] 460326- 8464 Feb, Other chronic pain G89.29 [facility] [address] [place] [id number] [place] [address] 88448- 3621 Jan, Other chronic pain G89.29 [facility] [address] [place] [id number] [place] [address] 11242- 2399 Dec, [facility] [address] 69726- 3615 Dec, Other chronic pain G89.29 [facility] [address] 99603- 7738 Dec, Cervical spinal stenosis M48.02 ; Encounter for immunization Z23 ; Polyneuropathy associated with underlying disease G63 and Erectile dysfunction due to arterial insufficiency N52.01 [facility] [address] 05121- 7567 Nov, [facility] [address] 81988- 0210 Nov, [facility] [address] 58902- 9321 Oct, [facility] [address] [place] [id number] [place] [address] 55818- 8860 Sep, [facility] [address] [address]60- 7841 Aug, [facility] [address] 39468- 1319 Jul, Other chronic pain G89.29 [facility] [address] [address] Jul, Angioedema, initial encounter T78.3XXA and Dental abscess K04.7 [facility] [address] 06779- 9093 Jul, Leg pain M79.606 [facility] [address] [place] [id number] [place] [address] 25425- 1002 June, Other chronic pain G89.29 and Encounter for immunization Z23 [facility] [address] [place] [address]- 56[address] June, [facility] [address] [place] [id number] [place] [address] 38529- 2478 May, Leg pain M79.606 [facility] [address] [place] [id number] [place] [address] 07970- 8467 Apr, Leg pain M79.606 and Cervical spinal stenosis M48.02 [facility] [address] [place] [id number] [place] [address] 62846- 8040 Apr, [facility] [address] [place] [id number] [place] [address] 15124- 4425 Mar, High ankle sprain of left lower extremity S93.432A [place] [address] [place] [id number] [place] [address] 68781- 3659 Mar, [facility] [address] [place] [id number] [place] [address] 91229- 9124 Mar, Left ankle pain M25.572 [facility] [address] [place] [id number] [place] [address] 96979- 3329 Mar, [facility] [address] [place] [id number] [place] [address] 97461- 6547 Mar, [facility] [address] [place] [id number] [place] [address] 19168- 8268 Mar, Leg pain M79.606 [facility] [address] [place] [id number] [place] [address] 76132- 0464 Mar, [facility] [address] [place] [id number] [place] [address] 89865- 7221 Mar, Ankle pain M25.579 ; Cardiac disease I51.9 ; Obesity E66.9 ; Leg pain M79.606 ; HTN (hypertension) I10 ; Ingrowing nail L60.0 ; 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 and Foot pain, left M79.672 [facility] [address] [facility] [id number], [place] [address]- 6882 Feb, [facility] [address] [place] [address] 38110- 5010 Jan, [facility] [address] [id number], [place] [address]- 4676 Dec, Cervical spinal stenosis M48.02 and Hypertension I10 [facility] [address] [facility] [id number] [place] [address] 29816- 9221 Dec, [facility] [address] [facility] [id number] [place] [address] 80413- 0935 Dec, [facility] [address] [place] [id number] [place] [address] 75450- 1994 Dec, [facility] [address] [place] [id number] [place] [address] 17112- 1818 Nov, [facility] [address] [place] [id number] [place] [address] 19390- 7846 Nov, [facility] [address], [place] [address]- 7721 Oct, [facility] [address], [place] [address]- 8246 Oct, [facility] [id number], [place] [address]- 2710 Oct, [facility] [id number], [place] [address]- 8019 Oct, [facility] [address] [id number], [place] [address]- 9303 Sep, [facility] [address] [facility] [id number], [place] [address]- 0039 Sep, [facility] [address], [place] [address]- 2588 Sep, Spinal stenosis in cervical region 723.0 ; Essential hypertension, benign 401.1 and Erectile dysfunction 607.84 [facility] [address] [place] [id number] [place] [address]- 6140 Sep, [facility] [address] [facility] [id number], [place] [address]- 5256 Aug, [facility] [id number] [place] [address]- 1803 Aug, [facility] [address] [id number], [place] [address]- 3560 Jul, [facility] [address] [place] [id number] [place] [address]- 3374 June, [facility] [id number]- 9798 June, [facility] [address], [place] [address]- 2915 June, [facility] [id number], [place] [address]- 4104 June, [facility] [address], [place] [address]- 4237 June, Spinal stenosis in cervical region 723.0 and Essential hypertension, benign 401.1 [facility] [address] [id number], [place] [address]- 1676 May, [facility] [address], [place] [address]- 5855 May, [facility] [address] [place] [id number], [place] [address]- 4265 Apr, [facility] [address]- 7265 Apr, [facility] [address] [id number]- 3932 Apr, [facility] [address] [id number], [place] [address]- 9018 Apr, [facility] [place] [facility] [address] [id number] [place] [address]- 9098 Mar, [facility] [place] [facility] [address] [id number] [place] [address]- 5288 Mar, [facility] [place] [facility] [address] [id number] [place] [address]- 1209 Feb, [facility] [place] [facility] [address] [id number] [place] [address]- 2134 Feb, [facility] [place] [facility] [address] [id number] [place] [address]- 4230 Feb, [facility] [place] [facility] [address] [id number] [place] [address]- 6231 Feb, [facility] [place] [facility] [address] [id number] [place] [address]- 2597 Feb, [facility] [place] [facility] [address] [id number] [place] [address]- 0211 Jan, [facility] [place] [facility] [address] [id number] [place] [address]- 5482 Jan, [facility] [place] [facility] [address] [id number] [place] [address]- 0939 Jan, [facility] [place] [facility] [address] [id number], [place] [address]- 4075 Jan, [facility] [place] [facility] [address] [id number], [place] [address]- 1386 Dec, [facility] [place] [facility] [address] [id number] [place] [address]- 0749 Dec, [facility] [place] [facility] [address] [id number], [place] [address]- 9043 Nov, [facility] [place] [facility] [address] [id number] [place] [address]- 9926 Nov, [facility] [place] [facility] [address] [id number] [place] [address]- 9963 Oct, [facility] [place] [facility] [address] [id number] [place] [address]- 3522 Oct, [facility] [place] [facility] [address] [id number] [place] [address]- 1649 Oct, [facility] [place] [facility] [address] [id number] [place] [address]- 5734 Oct, [facility] [place] [facility] [address] [id number] [place] [address]- 3155 Sep, [facility] [place] [facility] [address] [id number] [place] [address]- 9136 Sep, [facility] [place] [facility] [address] [id number] [place] [address]- 2587 Jul, [facility] [place] [facility] [address] [id number] [place] [address]- 1122 Jul, [facility] [place] [facility] [address] [id number] [place] [address]- 5685 Jul, [facility] [place] [facility] [address] [id number] [place] [address]- 6516 Jul, [facility] [place] [facility] [address] [id number] [place] [address]- 7162 June, [facility] [place] [facility] [address] [id number] [place] [address]- 5986 June, [facility] [place] [facility] [address] [id number] [place] [address]- 6475 June, [facility] [place] [facility] [address] [id number] [place] [address]- 9792 June, [facility] [place] [facility] [address] [id number] [place] [address]- 1395 Mar, [facility] [place] [facility] [address] [id number] [place] [address]- 2044 Mar, [facility] [place] [facility] [address] [id number] [place] [address]- 7301 Mar, [facility] [place] [facility] [address] [id number] [place] [address]- 6139 Mar, [facility] [place] [facility] [address] [id number] [place] [address]- 0162 Mar, [facility] [place] [facility] [address] [id number] [place] [address]- 8489 Feb, [facility] [place] [facility] [address] [id number] [place] [address]- 7621 Feb, [facility] [place] [facility] [address] [id number] [place] [address]- 6405 Feb, [facility] [place] [facility] [address] [id number] [place] [address]- 6110 Feb, [facility] [place] [facility] [address] [id number] [place] [address]- 9845 Feb, [facility] [place] [facility] [address] [id number] [place] [address]- 1619 Feb, [facility] [place] [facility] [address] [id number] [place] [address]- 2749 Feb, [facility] [place] [facility] [address] [id number] [place] [address]- 2803 Feb, [facility] [place] [facility] [address] [id number], [place] [address]- 6115 Feb, [facility] [place] [facility] [address] [id number] [place] [address]- 9003 Feb, [facility] [place] [facility] [address] [id number] [place] [address]- 3684 Nov, [facility] [place] [facility] [address] [id number] [place] [address]- 1789 Nov, [facility] [place] [facility] [address] [id number] [place] [address]- 7479 Nov, [facility] [address] [id number] [place] [address]- 2980 Nov, [facility] [place] [facility] [address] [id number] [place] [address]- 4425 Nov, [facility] [address] [id number] [place] [address]- 1959 Nov, [facility] [place] [facility] [address] [id number] [place] [address]- 9735 Aug, [facility] [address] [id number] [place] [address]- 0272 Aug, [facility] [address] [id number] [place] [address]- 0785 Aug, [facility] [address] [id number] [place] [address]- 8788 Aug, [facility] [address] [id number] [place] [address]- 7357 May, [facility] [address] [id number] [place] [address]- 3196 Apr, [facility] [address] [id number] [place] [address]- 5630 Apr, [facility] [address] [id number] [place] [address]- 6286 Jan, [facility] [place] [facility] [address] [id number] [place] [address]- 0626 Jan, [facility] [place] [facility] [address] [id number] [place] [address]- 5195 Jan, [facility] [place] [facility] [address] [id number] [place] [address]- 9169 Jan, [facility] [place] [facility] [address] [id number] [place] [address]- 5982 Jan, [facility] [place] [facility] [address] [id number] [place] [address]- 2839 17 Jan, 2012 [facility] [place] [facility] [address] [id number] [place] [address]- 8786 17 Jan, 2012 [facility] [place] [facility] [address] [id number] [place] [address] 2546 17 Jan, 2012 [facility] [place] [facility] [address] [id number] [place] [address] Jan, [facility] [place] [facility] [address] [id number] [place] [address] Jan, [facility] [place] [facility] [address] [id number] [place] [address] Jan, [facility] [place] [facility] [address] [id number] [place] [address] Jan, [facility] [place] [facility] [address] [id number] [place] [address] Jan, [facility] [place] [facility] [address] [id number] [place] [address] Dec, [facility] [place] [facility] [address] [id number] [place] [address] Dec, [facility] [place] [facility] [address] [id number] [place] [address] Dec, [facility] [place] [facility] [address] [id number] [place] [address] Sep, [facility] [place] [facility] [address] [id number] [place] [address] Sep, [facility] [place] [facility] [address] [id number] [place] [address] Sep, [facility] [place] [facility] [address] [id number] [place] [address] Aug, [facility] [place] [facility] [address] [id number] [place] [address] Aug, [facility] [place] [facility] [address] [id number] [place] [address] Aug, [facility] [place] [facility] [address] [id number] [place] [address] June, [facility] [place] [facility] [address] [id number] [place] [address] Apr, [facility] [place] [facility] [address] [id number] [place] [address] Apr, [facility] [place] [facility] [address] [id number] [place] [address] Mar, [facility] [place] [facility] [address] [id number] [place] [address] Feb, [facility] [place] [facility] [address] [id number] [place] [address] Feb, [facility] [place] [facility] [address] [id number] [place] [address] Jan, [facility] [place] [facility] [address] [id number] [place] [address] Jan, [facility] [place] [facility] [address] [id number] [place] [address] Dec, [facility] [place] [facility] [address] [id number], [place] [address] Dec, [facility] [place] [facility] [address] [id number], [place] [address] Dec, [facility] [place] [facility] [address] [id number] [place] [address] Nov, [facility] [place] [facility] [address] [id number] [place] [address] Sep, [facility] [place] [facility] [address] [id number] [place] [address] 25[address] Apr, [facility] [place] [facility] [address] [id number], [place] [address] 16 Mar, 2010 [facility] [id number], [place] [address] Jan, [facility] [id number], [place] [address] Dec, [facility] [id number], [place] [address] Nov, [facility] [id number], [place] [address] Sep, [facility] [id number], [place] [address] Jul, [facility] [id number], [place] [address] Feb, [facility] [id number], [place] [address] Jan, IMMUNIZATIONS No Known Immunizations SOCIAL HISTORY Never Assessed REASON FOR VISIT Hydrocodone 01/30 PLAN OF CARE VITAL SIGNS MEDICATIONS Medication Instructions Dosage Frequency Start Date End Date Duration Status Hydrocodone-Acetaminophen 7.5-325 MG Orally 3 times a day 1 tablet as needed 8h Jan, 28 days Active RESULTS No Results PROCEDURES No Known procedures INSTRUCTIONS MEDICATIONS ADMINISTERED No Known Medications MEDICAL (GENERAL) HISTORY Type Description Date Medical History spinal compression fracture Medical History cardiovascular disease Medical History stent placed 03-07-15 Surgical History cardiac stent 03-07-15 Surgical History Cardiac stent 11/2015 Hospitalization History NM with stent placement 03-06-15 Hospitalization History Cardiac Stent Collapsed/Heart attack 11/2015
--- OUTSIDE RECORDS SUMMARY | 2018-01-15 21:17 | XMS REPORT ---
Author Author ROB RAMIREZ Organization [facility] [place] Address [address] [place] [address] Care Team Providers Care Emergency Veterinary Assistant Name Role Phone ROB RAMIREZ Unavailable PROBLEMS Type Condition ICD9-CM Code [id number] Code Onset Dates Condition Status SNOMED Code Problem Ingrowing nail L60.0 Active 974917568 Problem 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 Active 071401438 Problem Cardiac disease I51.9 Active 58828341 Problem Cervical spinal stenosis M48.02 Active 38433741 Problem Other chronic pain G89.29 Active 07814576 Problem Polyneuropathy associated with underlying disease G63 Active 170560106 Problem Obesity E66.9 Active 529162487 Problem Foot pain, left M79.672 Active 04527885 Problem Erectile dysfunction due to arterial insufficiency N52.01 Active 324336512 Problem HTN (hypertension) I10 Active 46273823 ALLERGIES No Information SOCIAL HISTORY Never Assessed [...]
--- OUTSIDE RECORDS SUMMARY | 2018-01-15 21:17 | XMS REPORT ---
Author Author ROB RAMIREZ Organization [facility] Address [address] [place] [address] Care Team Providers Care Watch Leader Name Role Phone ROB RAMIREZ Unavailable PROBLEMS Type Condition ICD9-CM Code [id number] Code Onset Dates Condition Status SNOMED Code Problem Ingrowing nail L60.0 Active 824757245 Problem 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 Active 810761393 Problem Cardiac disease I51.9 Active 10835985 Problem Cervical spinal stenosis M48.02 Active 12609502 Problem Other chronic pain G89.29 Active 85246634 Problem Polyneuropathy associated with underlying disease G63 Active 534184109 Problem Obesity E66.9 Active 559463999 Problem Foot pain, left M79.672 Active 05751753 Problem Erectile dysfunction due to arterial insufficiency N52.01 Active 544372377 Problem HTN (hypertension) I10 Active 16314116 ALLERGIES No Information SOCIAL HISTORY Never Assessed PLAN OF CARE VITAL SIGNS MEDICATIONS Medication Instructions Dosage Frequency Start Date End Date Duration Status Naprosyn 500 mg Orally 2 times a day, pc 1 tablet as needed Mar, Sep, 30 days Active RESULTS No Results PROCEDURES No [...]
--- OUTSIDE RECORDS SUMMARY | 2018-01-15 21:17 | XMS REPORT ---
Author Author ROB RAMIREZ Organization [facility] Address [address] [place] [address] Care Team Providers Care Phone Triage Specialist Name Role Phone ROB RAMIREZ Unavailable PROBLEMS Type Condition ICD9-CM Code EPY22-SR Code Onset Dates Condition Status SNOMED Code Problem Polyneuropathy associated with underlying disease G63 Active 681396929 Problem Other chronic pain G89.29 Active 25110094 Problem Erectile dysfunction due to arterial insufficiency N52.01 Active 592390778 Problem Right leg weakness R29.898 Active [id number] Problem Morbid (severe) obesity due to excess calories E66.01 Active 700198639 Problem Morbid obesity E66.01 Active 048504670 Problem Recurrent right knee instability M23.51 Active 906871576 Problem Coronary artery disease involving ione coronary artery of ione 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 Active 8828020858404 Problem Mixed hyperlipidemia E78.2 Active 438530227 Problem Cervical spinal stenosis M48.02 Active 60549494 Problem Obesity E66.9 Active 991170501 Problem HTN (hypertension) I10 Active 48237547 Problem Ingrowing nail L60.0 Active 394750970 Problem Cardiac disease I51.9 Active 90010013 Problem Foot pain, left M79.672 Active 67013334 Problem 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 Active 357958345 ALLERGIES Substance Reaction Event Type Date Status Metoprolol Tartrate fatigue Drug Allergy Feb, Active ENCOUNTERS Encounter Location Date Diagnosis [facility] [address] [facility] [id number] [address] Jul, Medicare annual wellness visit, initial Z00.00 ; Morbid ( severe) obesity due to excess calories E66.01 ; Coronary artery disease involving ione coronary artery of ione 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 ; 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 ; Polyneuropathy associated with underlying disease G63 ; HTN (hypertension) I10 ; Mixed hyperlipidemia E78.2 ; BMI 50.0-59.9, adult Z68.43 and Encounter for immunization Z23 [place] [address] [address] Jul, Cervical spinal stenosis M48.02 ; HTN (hypertension) I10 ; Coronary artery disease involving ione coronary artery of ione 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 and Right leg weakness R29.898 [place] [address] [address] June, Cervical spinal stenosis M48.02 [place] [address] [address]- 3157 June, Cervical spinal stenosis M48.02 [place] [address] 99852- 9226 May, Cervical spinal stenosis M48.02 [place] [address] [address]57- 3058 Apr, Cervical spinal stenosis M48.02 [facility] [address] [address] Mar, Neck pain on right side M54.2 and BMI 50.0-59.9, adult Z68.43 [place] [address] [address]- [address] 06 Mar, 2017 Cervical spinal stenosis M48.02 [facility] [address] [address]- [address] Feb, Cervical spinal stenosis M48.02 [place] [address] [address]33- 0049 Feb, [place] [address] [address]- 3624 Feb, Morbid (severe) obesity due to excess calories E66.01 and Coronary artery disease involving ione coronary artery of ione 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 [place] [address] [place] [address] 05 Feb, 2017 Mixed hyperlipidemia E78.2 and HTN (hypertension) I10 [place] [address] [place] [id number] [place] [address] 30909- 3804 Feb, Cervical spinal stenosis M48.02 ; HTN (hypertension) I10 ; Mixed hyperlipidemia E78.2 ; Recurrent right knee instability M23.51 and Morbid obesity E66.01 [place] [address] [place] [id number] [place] [address] 87451- 1441 Jan, Other chronic pain G89.29 [place] [address] [place] [id number] [place] [address] 94288- 1980 Dec, Other chronic pain G89.29 [place] [address] [place] [id number] [place] [address] 97898- 0921 Nov, Other chronic pain G89.29 [place] [address] [place] [id number] [place] [address] 85988- 7870 Oct, Other chronic pain G89.29 [place] [address] [place] [id number] [place] [address] 35960- 7996 Sep, Other chronic pain G89.29 [place] [address] [place] [id number] [place] [address] 42837- 2870 Sep, Other chronic pain G89.29 [place] [address] [place] [id number] [place] [address] 09219- 9019 Sep, Tenderness of left calf M79.662 and Cervical spinal stenosis M48.02 [facility] [address] [place] [id number] [place] [address] 06790- 7805 Aug, Other chronic pain G89.29 [place] [address] [place] [id number] [place] [address] 01920- 3913 Aug, Cervical radiculopathy M54.12 [facility] [address] [place] [id number] [place] [address] 65212 -9622 Aug, Cervical neuritis M54.12 [facility] [address] [address] Jul, Other chronic pain G89.29 [facility] [address] [place] [id number] [place] [address] [id number] Jul, Dental caries K02.9 [facility] [address] [place] [id number] [place] [address] 01990 2546 Jul, Other chronic pain G89.29 [facility] [address] [place] [id number] [place] [address] 30127 2547 June, Other chronic pain G89.29 [facility] [address] [place] [id number] [place] [address] [id number] May, Dental examination Z01.20 [facility] [address] [place] [id number] [place] [address] 73498- 0333 May, Other chronic pain G89.29 [facility] [address] [place] [id number] [place] [address] 32205- 9769 Apr, Cervical spinal stenosis M48.02 and Drug-induced constipation K59.03 [facility] [address] [place] [id number] [place] [address] 55110- 3216 Apr, [facility] [address] [place] [id number] [place] [address] 62375- 2782 Apr, Other chronic pain G89.29 [facility] [address] [place] [address] 01371- 7436 Apr, [facility] [address] [place] [address] 95434- 0423 Mar, [facility] [address] [place] [id number] [place] [address] 01108- 5999 Mar, Other chronic pain G89.29 [facility] [address] [place] [address] 10422- 4993 Feb, Other chronic pain G89.29 [facility] [address] [place] [id number] [place] [address] 78623- 9350 15 Jan, 2016 Other chronic pain G89.29 [facility] [address] 99999- 5285 Dec, [facility] [address] [place] [id number] [place] [address] 40966- 2739 Dec, Other chronic pain G89.29 [facility] [address] 18426- 5285 Dec, Cervical spinal stenosis M48.02 ; Encounter for immunization Z23 ; Polyneuropathy associated with underlying disease G63 and Erectile dysfunction due to arterial insufficiency N52.01 [facility] [address] [place] [id number] [place] [address] 31828- 6166 Nov, [place] [address] 59745- 4964 Nov, [facility] [address] 29085- 9131 Oct, [facility] [address] [place] [id number] [place] [address] 93436- 7725 Sep, [facility] [address] [place] [id number] [place] [address] 56550- 9418 Aug, [facility] [address] [place] [id number] [place] [address] 98146- 7237 Jul, Other chronic pain G89.29 [facility] [address] [place] [id number] [place] [address] 72742 -9874 Jul, Angioedema, initial encounter T78.3XXA and Dental abscess K04.7 [facility] [address] [place] [id number] [place] [address] 36338- 3315 Jul, Leg pain M79.606 [facility] [address] [place] [id number] [place] [address] 15720- 6293 June, Other chronic pain G89.29 and Encounter for immunization Z23 [facility] [address] [place] [id number] [place] [address] 92091- 3662 June, [facility] [address] 91810- 1289 May, Leg pain M79.606 [place] [address] [place] [id number] [place] [address] 93143- 2139 Apr, Leg pain M79.606 and Cervical spinal stenosis M48.02 [facility] [address] [place] [id number] [place] [address] 92649- 5666 Apr, [place] [address] 36734- 3565 Mar, High ankle sprain of left lower extremity S93.432A [place] [address] [place] [id number] [place] [address] 38992- 9853 Mar, [place] [address] [place] [id number] [place] [address] 99246- 9192 Mar, Left ankle pain M25.572 [place] [address] [place] [id number] [place] [address] 68727- 1471 Mar, [place] [address] [place] [id number] [place] [address] 70629- 8003 Mar, [place] [address] [place] [id number] [place] [address] 75256- 9625 Mar, Leg pain M79.606 [place] [address] [place] [id number] [place] [address] 35373- 4573 Mar, [place] [address] [place] [id number] [place] [address] 39146- 7856 Mar, Ankle pain M25.579 ; Cardiac disease I51.9 ; Obesity E66.9 ; Leg pain M79.606 ; HTN (hypertension) I10 ; Ingrowing nail L60.0 ; 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 and Foot pain, left M79.672 [facility] [address] [place] [id number] [place] [address], [place] [address]- 5109 Feb, [facility] [address] [place] [id number] [place] [address] 55392- 6826 Jan, [facility] [address] [place] [id number] [place] [address], [place] [address]- 3112 Dec, Cervical spinal stenosis M48.02 and Hypertension I10 [facility] [address] [facility] [id number] [place] [address], [place] [address] 2541 Dec, [facility] [address] [place] [id number] [place] [address], [place] [address]- 1424 Dec, [facility] [address] [place] [id number] [place] [address], [place] [address]- 1133 Dec, [facility] [address] [place] [id number] [place] [address] 38638- 5995 Nov, [facility] [address] [place] [id number] [place] [address] 55275- 0609 Nov, [facility] [address] [place] [id number] [place] [address], [place] [address]- 1469 Oct, [facility] [address] [place] [id number] [place] [address] 77128- 8764 Oct, [facility] [address] [place] [id number] [place] [address] 28258- 2549 Oct, [facility] [address] [place] [id number] [place] [address] 70012- 2542 Oct, [facility] [address] [place] [id number] [place] [address] 42440- 6840 Sep, [facility] [address] [facility] [id number] [address]- 2548 Sep, [facility] [address] [place] [id number] [place] [address] 05440- 2549 Sep, Spinal stenosis in cervical region 723.0 ; Essential hypertension, benign 401.1 and Erectile dysfunction 607.84 [facility] [address] [id number] [address]- 0840 Sep, [facility] [address] [facility] [id number], [place] [address]- 5816 Aug, [facility] [address] [id number] 8547 Aug, [facility] [address] [facility] [id number] 3819 Jul, [facility] [address]- 9463 June, [facility] [address] [address]- 1246 June, [facility] [address], [place] [address]- 5406 June, [facility] [address] [id number] [address]- 8666 June, [facility] [address] [address]- 1248 June, Spinal stenosis in cervical region 723.0 and Essential hypertension, benign 401.1 [facility] [address] [address]- 4715 May, [facility] [address] [id number] [address]- 2523 May, [facility] [address] [id number] [address]- 3966 Apr, [facility] [address] [id number] 3212 Apr, [facility] [address] [id number] [address]- 3227 Apr, [facility] [address] [place] [address]- 3081 Apr, [facility] [address] [id number] [place] [address]- 9505 Mar, [facility] [place] [facility] [address] [id number] [place] [address]- 1726 Mar, [facility] [address] [id number] [place] [address]- 0535 Feb, [facility] [place] [facility] [address] [id number] [place] [address]- 9174 Feb, [facility] [place] [facility] [address] [id number] [place] [address]- 8098 Feb, [facility] [place] [facility] [address] [id number] [place] 3019 Feb, [facility] [place] [facility] [address] [id number] [place] [address]- 5832 Feb, [facility] [address] [id number] [place] [address]- 3886 Jan, [facility] [place] [facility] [address] [id number] [place] [address]- 8658 Jan, [facility] [place] [facility] [address] [id number] [place] [address]- 1124 15 Jan, 2014 [facility] [place] [facility] [address] [id number] [place] [address]- 2774 Jan, [facility] [place] [facility] [address] [id number] [place] [address]- 9819 Dec, [facility] [place] [facility] [address] [id number] [place] [address]- 5133 Dec, [facility] [place] [facility] [address] [id number] [place] [address]- 9386 Nov, [facility] [place] [facility] [address] [id number] [place]- 1347 Nov, [facility] [place] [facility] [address] [id number] [place] [address]- 8747 Oct, [facility] [place] [facility] [address] [id number] [place] [address]- 3952 Oct, [facility] [place] [facility] [address] [id number] [place] [address]- 2312 Oct, [facility] [place] [facility] [address] [id number] [place] [address]- 0806 Oct, [facility] [place] [facility] [address] [id number] [place] [address]- 3019 Sep, [facility] [place] [facility] [address] [id number] [place] [address]- 9987 Sep, [facility] [place] [facility] [address] [id number] [place] [address]- 9708 Jul, [facility] [place] [facility] [address] [id number] [place] [address]- 3790 Jul, [facility] [place] [facility] [address] [id number] [place] [address]- 9310 Jul, [facility] [place] [facility] [address] [id number] [place] [address]- 9040 Jul, [facility] [place] [facility] [address] [id number] [place] [address]- 0595 June, [facility] [place] [facility] [address] [id number] [place] [address]- 8088 June, [facility] [place] [facility] [address] [id number] [place] [address]- 8583 June, [facility] [place] [facility] [address] [id number] [place] [address]- 1481 June, [facility] [place] [facility] [address] [id number] [place] [address]- 5874 Mar, [facility] [place] [facility] [address] [id number] [place] [address]- 7602 Mar, [facility] [address] [id number] [place] [address]- 5544 Mar, [facility] [place] [facility] [address] [id number] [place] [address]- 8376 Mar, [facility] [place] [facility] [address] [id number] [place] [address]- 1156 Mar, [facility] [place] [facility] [address] [id number] [place] [address]- 7925 Feb, [facility] [place] [facility] [address] [id number] [place] [address]- 9546 Feb, [facility] [place] [facility] [address] [id number] [place] [address]- 9430 Feb, [facility] [place] [facility] [address] [id number] [place] [address]- 4749 Feb, [facility] [place] [facility] [address] [id number] [place] [address]- 3006 Feb, [facility] [place] [facility] [address] [id number] [place] [address]- 2691 Feb, [facility] [place] [facility] [address] [id number] [place] [address]- 9975 Feb, [facility] [place] [facility] [address] [id number] [place] [address]- 0239 Feb, [facility] [place] [facility] [address] [id number] [place] [address]- 6844 Feb, [facility] [place] [facility] [address] [id number] [place] [address]- 7361 Feb, [facility] [place] [facility] [address] [id number] [place] [address]- 5983 Nov, [facility] [place] [facility] [address] [id number] [place] [address]- 6744 Nov, [facility] [place] [facility] [address] [id number] [place] [address]- 3389 Nov, [facility] [place] [facility] [address] [id number] [place] [address]- 6025 Nov, [facility] [place] [facility] [address] [id number] [place] [address]- 3921 Nov, [facility] [place] [facility] [address] [id number] [place] [address]- 1463 Nov, [facility] [address] [id number] [place] [address]- 9313 Aug, [facility] [place] [facility] [address] [id number] [place] [address]- 2100 Aug, [facility] [address] [id number] [place] [address]- 4609 Aug, [facility] [place] [facility] [address] [id number] [place] [address]- 3556 Aug, [facility] [place] [facility] [address] [id number] [place] [address]- 4780 May, [facility] [place] [facility] [address] [id number] [place] [address]- 8605 Apr, [facility] [place] [facility] [address] [id number] [place] [address]- 2541 Apr, [facility] [place] [facility] [address] [id number], [place] [address]- 2368 Jan, [facility] [place] [facility] [address] [id number] [place] [address]- 8595 Jan, [facility] [place] [facility] [address] [id number] [place] [address]- 0336 Jan, [facility] [place] [facility] [address] [id number] [place] [address]- 4800 Jan, [facility] [place] [facility] [address] [id number] [place] [address]- 2955 17 Jan, 2012 [facility] [place] [facility] [address] [id number] [place] [address]- 0186 17 Jan, 2012 [facility] [place] [facility] [address] [id number] [place] [address]- 0626 17 Jan, 2012 [facility] [place] [facility] [address] [id number] [place] [address]- 3066 17 Jan, 2012 [facility] [place] [facility] [address] [id number] [place] [address]- 3932 12 Jan, 2012 [facility] [place] [facility] [address] [id number] [place] [address]- 0002 Jan, [facility] [place] [facility] [address] [id number] [place] [address]- 7406 Jan, [facility] [place] [facility] [address] [id number] [place] [address] Jan, [facility] [place] [facility] [address] [id number] [place] [address] Jan, [facility] [place] [facility] [address] [id number] [place] [address] Dec, [facility] [place] [facility] [address] [id number] [place] [address] Dec, [facility] [place] [facility] [address] [id number] [place] [address] Dec, [facility] [place] [facility] [address] [id number] [place] [address] Sep, [facility] [place] [facility] [address] [id number] [place] [address] Sep, [facility] [place] [facility] [address] [id number] [place] [address] Sep, [facility] [place] [facility] [address] [id number] [place] [address] Aug, [facility] [place] [facility] [address] [id number] [place] [address] Aug, [facility] [address] [id number] [place] [address] Aug, [facility] [place] [facility] [address] [id number] [place] [address] June, [facility] [place] [facility] [address] [id number] [place] [address] Apr, [facility] [place] [facility] [address] [id number] [place] [address] Apr, [facility] [place] [facility] [address] [id number] [place] [address] Mar, [facility] [place] [facility] [address] [id number] [place] [address] Feb, [facility] [place] [facility] [address] [id number] [place] [address] Feb, [facility] [address] [id number] [place] [address] Jan, [facility] [place] [facility] [address] [id number] [place] [address] Jan, [facility] [place] [facility] [address] [id number] [place] [address] Dec, [facility] [place] [facility] [address] [id number] [place] [address] Dec, [facility] [place] [facility] [address] [id number] [place] [address] Dec, [facility] [place] [facility] [address] [id number] [place] [address] Nov, [facility] [place] [facility] [address] [id number] [place] [address] Sep, [facility] [place] [facility] [address] [id number] [place] [address] Apr, [facility] [address] [id number] [address] Mar, [facility] [id number] [place] [address] Jan, [facility] [id number] [address] Dec, [facility] [address] [id number] [address] Nov, [facility] [id number] [place] [address] Sep, [facility] [id number] [place] [address] Jul, [facility] [id number] [place] [address] Feb, [facility] [id number] [place] [address] Jan, IMMUNIZATIONS No Known Immunizations SOCIAL HISTORY Never Assessed REASON FOR VISIT Pain management (chronic) right knee pain and possible hernia-Tanya [facility] PLAN OF CARE Activity Details Follow Up 3 Months Reason: VITAL SIGNS Height 75 in 2017-02-14 Weight 422.3 lbs 2017-02-14 Temperature 98.6 degrees Fahrenheit 2017-02-14 Heart Rate 82 bpm 2017-02-14 Respiratory Rate 22 2017-02-14 BMI 52.78 kg/m2 2017-02-14 Blood pressure systolic 156 mmHg 2017-02-14 Blood pressure diastolic 82 mmHg 2017-02-14 MEDICATIONS Medication Instructions Dosage Frequency Start Date End Date Duration Status Gabapentin 600 MG TAKE ONE TABLET BY MOUTH FOUR TIMES DAILY 30 Active Hydrocodone-Acetaminophen 7.5-325 MG Orally 3 times a day 1 tablet as needed 8h 18 Jan, 2017 28 days Active Amitriptyline HCl 50 mg Orally Once a day 1 tablet 24h 15 Sep, 2016 30 day(s) Active Naprosyn 500 mg Orally 2 times a day, pc 1 tablet as needed 30 Active Amoxicillin 500 MG Orally every 8 hrs 1 tablet 8h 7 days Not-Taking Atorvastatin Calcium 80 MG Orally Once a day 1 tablet 24h Active Chlorhexidine Gluconate 0.12 % Mouth/Throat 3 times a day 5 ML SWISH AND SPIT 8h 27 Jul, 2015 Not-Taking Requip 2 MG Orally Once a day 1 tablet 1 to 3 hours before bedtime 24h Mar, 30 day(s) Not-Taking Metoprolol Tartrate 25 MG Orally Twice a day 1 tablet with food 12h Not-Taking Baclofen 20 MG Orally 4 times a day 1 tablet with food or milk 6h 30 Active Viagra 100 MG TAKE ONE TABLET BY MOUTH ONCE DAILY NEEDED 30 Active Brilinta 90 MG Orally Twice a day 1 tablet 12h Mar, 30 day(s) Active Ibuprofen 200 MG Orally 2 times a day 2 tablet as needed 12h Active Nitroglycerin 0.4 MG Not-Taking Aspirin 325 MG Orally Once a day 1 tablet 24h Active ASA 1 tab Not-Taking Lisinopril 20 mg Orally Once a day 1 tablet 24h Active Hydrochlorothiazide 50 MG Orally Once a day 1 tablet 24h June, Not-Taking RESULTS No Results PROCEDURES Procedure Date Ordered Result Body Site X-RAY EXAM OF KNEE, 1 OR 2 Feb 14, 2017 [facility] VISIT ESTABLISHED PATIENT Feb 14, 2017 INSTRUCTIONS MEDICATIONS ADMINISTERED No Known Medications MEDICAL (GENERAL) HISTORY Type Description Date Medical History spinal compression fracture Medical History cardiovascular disease Medical History stent placed 03-07-15 Surgical History cardiac stent 03-07-15 Surgical History Cardiac stent 11/2015 Hospitalization History [place] with stent placement 03-06-15 Hospitalization History Cardiac Stent Collapsed/Heart attack 11/2015
--- OUTSIDE RECORDS SUMMARY | 2018-01-15 21:18 | XMS REPORT ---
Author Author ROB RAMIREZ [facility] Address [address] [place] [address] Care Team Providers Care [employer] Name Role Phone ROB RAMIREZ Unavailable PROBLEMS Type Condition ICD9-CM Code [id number] Code Onset Dates Condition Status SNOMED Code Problem Foot pain, left M79.672 Active 02635294 Problem Ingrowing nail L60.0 Active 055090600 Problem 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 Active 366555798 Problem Cervical spinal stenosis M48.02 Active 86902019 Problem Other chronic pain G89.29 Active 26711679 Problem Polyneuropathy associated with underlying disease G63 Active 283815708 Problem Obesity E66.9 Active 807568363 Problem HTN (hypertension) I10 Active 78962729 Problem Erectile dysfunction due to arterial insufficiency N52.01 Active 865182211 Problem Cardiac disease I51.9 Active 61030281 ALLERGIES Unknown Allergies SOCIAL HISTORY No smoking Hx information available PLAN OF CARE VITAL SIGNS MEDICATIONS Medication Instructions Dosage Frequency Start Date End Date Duration Status Hydrocodone-Acetaminophen 7.5-325 MG TAKE ONE TABLET BY MOUTH THREE TIMES DAILY NEEDED FOR PAIN Jan, 28 Active RESULTS No Results PROCEDURES No Known procedures IMMUNIZATIONS No Known Immunizations
--- OUTSIDE RECORDS SUMMARY | 2018-01-15 21:18 | XMS REPORT ---
Author Author ROB RAMIREZ Organization [facility] Address [address] [place] [address] Care Team Providers Care Candy Forming Machine Operator Name Role Phone ROB RAMIREZ Unavailable PROBLEMS Type Condition ICD9-CM Code VEQ37-ZY Code Onset Dates Condition Status SNOMED Code Problem 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 Active 960431483 Problem Erectile dysfunction due to arterial insufficiency N52.01 Active 864845311 Problem Polyneuropathy associated with underlying disease G63 Active 210574322 Problem Morbid (severe) obesity due to excess calories E66.01 Active 386998259 Problem Coronary artery disease involving [place] coronary artery of [place]gi[place] 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 Active 3007942708883 Problem Recurrent right knee instability M23.51 Active 947553016 Problem Other chronic pain G89.29 Active 98811238 Problem Mixed hyperlipidemia E78.2 Active 300965303 Problem Morbid obesity E66.01 Active 766493969 Problem Foot pain, left M79.672 Active 48379915 Problem Obesity E66.9 Active 763429238 Problem Cervical spinal stenosis M48.02 Active 37748156 Problem HTN (hypertension) I10 Active 01149187 Problem Ingrowing nail L60.0 Active 822054133 Problem Cardiac disease I51.9 Active 26393024 ALLERGIES No Information ENCOUNTERS Encounter Location Date Diagnosis [facility] [id number] [address] May, [facility] [address], [place] [address] Apr, Cervical spinal stenosis M48.02 [facility] [address], [place] [address] 14 Mar, 2017 Neck pain on right side M54.2 and BMI 50.0-59.9, adult Z68.43 [facility] [id number] [place] [address] 99191- 5751 Mar, Cervical spinal stenosis M48.02 [facility] [id number] [place] [address] 82675- 3101 Feb, Cervical spinal stenosis M48.02 [facility] [id number] [place] [address] 95338- 6958 Feb, [facility] [id number] [place] [address] 53864- 0000 Feb, Morbid (severe) obesity due to excess calories E66.01 and Coronary artery disease involving [place] coronary artery of [place] 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 [facility] [id number] [place] [address] 36903- 4075 Feb, Mixed hyperlipidemia E78.2 and HTN (hypertension) I10 [facility] [address] [address]- 1132 Feb, Cervical spinal stenosis M48.02 ; HTN (hypertension) I10 ; Mixed hyperlipidemia E78.2 ; Recurrent right knee instability M23.51 and Morbid obesity E66.01 [facility] [id number] [place] [address] 84553- 2514 Jan, Other chronic pain G89.29 [facility] [id number] [place] [address] 90818- 8055 Dec, Other chronic pain G89.29 [facility] [id number] [place] [address] 80471- 2068 Nov, Other chronic pain G89.29 [facility] [id number] [place] [address] 23703- 3012 Oct, Other chronic pain G89.29 [facility] [id number] [place] [address] 32067- 4129 Sep, Other chronic pain G89.29 [facility] [id number] [place] [address] 04887- 2245 Sep, Other chronic pain G89.29 [facility] [address] [place] [address] 33921- 4075 Sep, Tenderness of left calf M79.662 and Cervical spinal stenosis M48.02 [facility] [id number] [place] [address] 33116- 2930 Aug, Other chronic pain G89.29 [facility] [id number] [place] [address] 11793- 7673 Aug, Cervical radiculopathy M54.12 [facility] [id number] [place] [address] 24172 -3090 Aug, Cervical neuritis M54.12 [facility] [id number] [place] [address] 56169- 5720 Jul, Other chronic pain G89.29 [facility] [id number] [place] [address] [id number] Jul, Dental caries K02.9 [facility] [id number] [place] [address] 65982- 7084 Jul, Other chronic pain G89.29 [facility] [id number] [place] [address] 55435- 2864 June, Other chronic pain G89.29 [facility] [address] [place] [address] [id number] May, Dental examination Z01.20 [facility] [address] [place] [address] 48636- 6115 May, Other chronic pain G89.29 [facility] [id number] [place] [address] 70692- 8049 Apr, Cervical spinal stenosis M48.02 and Drug-induced constipation K59.03 [facility] [id number] [place] [address] 34049- 5812 Apr, [facility] [address] [place] [address] 88[address] 13 Apr, 2016 Other chronic pain G89.29 [facility] [id number] [place] [address] 89535- 9923 10 Apr, 2016 [facility] [address] [place] [address] 99398- 2530 22 Mar, 2016 [facility] [id number] [place] [address] 25256- 0924 10 Mar, 2016 Other chronic pain G89.29 [facility] [address] [place] [address] 026180- 3571 Feb, Other chronic pain G89.29 [facility] [id number] [place] [address] 642857- 0065 15 Jan, 2016 Other chronic pain G89.29 [facility] [id number] [place] [address] 91747- 8159 Dec, [facility] [id number] [place] [address] 39996- 3589 16 Dec, 2015 Other chronic pain G89.29 [facility] [id number] [place] [address] 47131- 9694 Dec, Cervical spinal stenosis M48.02 ; Encounter for immunization Z23 ; Polyneuropathy associated with underlying disease G63 and Erectile dysfunction due to arterial insufficiency N52.01 [facility] [address], [place] [address] 78[address] Nov, [facility] [id number] [place] [address] 37041- 2102 Nov, [facility] [id number] [place] [address] 36903- 1977 Oct, [facility] [address] [place] [address] 39349- 6204 Sep, [facility] [id number] [place] [address] 92900- 8311 Aug, [facility] [id number] [place] [address] 50570- 7340 Jul, Other chronic pain G89.29 [facility] [id number] [place] [address] 30262 -5635 Jul, Angioedema, initial encounter T78.3XXA and Dental abscess K04.7 [facility] [address] 60941- 1007 Jul, Leg pain M79.606 [facility] [address] 61931- 6996 June, Other chronic pain G89.29 and Encounter for immunization Z23 [facility] [address] 42929- 2145 June, [facility] [address] 41775- 2603 May, Leg pain M79.606 [facility] [address] 69839- 2544 Apr, Leg pain M79.606 and Cervical spinal stenosis M48.02 [facility] [id number] [place] [address] 89362- 1829 Apr, [facility] [id number] [place] [address] 17737- 7837 Mar, High ankle sprain of left lower extremity S93.432A [facility] [id number] [place] [address] 18573- 4371 Mar, [facility] [address] 46891- 0105 Mar, Left ankle pain M25.572 [facility] [id number] [place] [address] 51723- 1551 Mar, [facility] [address] 45991- 0700 Mar, [facility] [id number] [place] [address] 10394- 6437 Mar, Leg pain M79.606 [facility] [id number] [place] [address] 31807- 2649 Mar, [facility] [id number] [place] [address] 93740- 2621 Mar, Ankle pain M25.579 ; Cardiac disease I51.9 ; Obesity E66.9 ; Leg pain M79.606 ; HTN (hypertension) I10 ; Ingrowing nail L60.0 ; 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 and Foot pain, left M79.672 [facility] [id number] [place] [address] 70435- 4810 Feb, [facility] [id number] [place] [address] 96131- 0165 Jan, [facility] [id number] [place] [address] 63207- 7498 Dec, Cervical spinal stenosis M48.02 and Hypertension I10 [facility] [id number] [place] [address] 45575- 7752 Dec, [facility] [id number] [place] [address] 11651- 6287 Dec, [facility] [id number] [place] [address] 14636- 9330 Dec, [facility] [id number] [place] [address] 43830- 5944 Nov, [facility] [id number] [place] [address] 04641- 9304 Nov, [facility] [id number] [place] [address] 39946- 4474 Oct, [facility] [address] [place] [address]- 5584 Oct, [facility] [id number], [place] [address]- 3940 Oct, [facility] [address], [place] [address]- 6373 Oct, [facility] [address], [place] [address]- 0387 Sep, [facility] [address], [place] [address]- 9855 Sep, [facility] [address], [place] [address]- 7798 Sep, Spinal stenosis in cervical region 723.0 ; Essential hypertension, benign 401.1 and Erectile dysfunction 607.84 [facility] [address], [place] [address]- 6732 Sep, [facility] [address], [place] [address]- 9435 Aug, [facility] [address] [address] 6007 Aug, [facility] [address], [place] [address]- 7851 Jul, [facility] [id number], [place] [address]- 4934 June, [facility] [address], [place] [address]- 0046 June, [facility] [id number], [place] [address]- 8943 June, [facility] [id number], [place] [address]- 8853 June, [facility] [id number], [place] [address]- 7248 June, Spinal stenosis in cervical region 723.0 and Essential hypertension, benign 401.1 [facility] [address] [id number] [place] [address]- 1829 14 May, 2014 [facility] [address] [id number] [place] [address]- 2235 13 May, 2014 [facility] [address] [facility] [id number] [place] [address]- 7685 16 Apr, 2014 [facility] [address] [id number] [place] [address]- 6326 16 Apr, 2014 [facility] [address] [id number] [place] [address]- 0415 Apr, [facility] [address] [id number] [place] [address]- 4883 Apr, [facility] [address] [facility] [id number] [place] [address]- 1312 16 Mar, 2014 [facility] [address] [id number] [place] [address]- 5390 Mar, [facility] [address] [id number] [place] [address]- 1531 Feb, [facility] [address] [facility] [id number] [place] [address]- 7666 Feb, [facility] [address] [facility] [id number] [address]- 1596 Feb, [facility] [place] [facility] [address] [id number] [address]- 0055 Feb, [facility] [place] [facility] [address] [id number] [place] [address]- 2795 Feb, [facility] [place] [facility] [address] [facility] [id number] [place] [address]- 7116 Jan, [facility] [place] [facility] [address] [facility] [id number] [place] [address]- 6872 Jan, [facility] [address] [id number] [place] [address]- 1900 Jan, [facility] [place] [facility] [address] [id number] [place] [address]- 5578 Jan, [facility] [place] [facility] [address] [id number] [place] [address]- 4106 Dec, [facility] [place] [facility] [address] [id number] [place] [address]- 9502 Dec, [facility] [place] [facility] [address] [id number] [place] [address]- 6241 Nov, [facility] [place] [facility] [address] [id number] [place] [address]- 1238 Nov, [facility] [place] [facility] [address] [id number] [place] [address]- 5491 Oct, [facility] [place] [facility] [address] [id number] [place] [address]- 8930 Oct, [facility] [place] [facility] [address] [id number] [place] [address]- 9301 Oct, [facility] [place] [facility] [address] [id number] [place] [address]- 3722 Oct, [facility] [place] [facility] [address] [id number] [place] [address]- 7660 Sep, [facility] [place] [facility] [address] [id number] [place] [address]- 7166 Sep, [facility] [place] [facility] [address] [id number] [place] [address]- 4497 Jul, [facility] [place] [facility] [address] [id number] [place] [address]- 5189 Jul, [facility] [place] [facility] [address] [id number] [place] [address]- 8677 Jul, [facility] [place] [facility] [address] [id number] [place] [address]- 6008 Jul, [facility] [place] [facility] [address] [id number] [place] [address]- 5879 June, [facility] [place] [facility] [address] [id number] [place] [address]- 5118 June, [facility] [place] [facility] [address] [id number] [place] [address]- 4528 June, [facility] [place] [facility] [address] [id number] [place] [address]- 8223 June, [facility] [place] [facility] [address] [id number] [place] [address]- 5337 Mar, [facility] [place] [facility] [address] [id number] [place] [address]- 7225 Mar, [facility] [place] [facility] [address] [id number] [place] [address]- 0780 Mar, [facility] [place] [facility] [address] [id number] [place] [address]- 5056 Mar, [facility] [place] [facility] [address] [id number] [place] [address]- 7522 Mar, [facility] [place] [facility] [address] [id number] [place] [address]- 8541 Feb, [facility] [place] [facility] [address] [id number] [place] [address]- 7584 Feb, [facility] [place] [facility] [address] [id number], [place] [address]- 7706 Feb, [facility] [place] [facility] [address] [id number] [place] [address]- 3337 Feb, [facility] [place] [facility] [address] [id number] [place] [address]- 1166 Feb, [facility] [place] [facility] [address] [id number] [place] [address]- 9133 Feb, [facility] [place] [facility] [address] [id number] [place] [address]- 6290 Feb, [facility] [address] [id number] [place] [address]- 6064 Feb, [facility] [place] [facility] [address] [id number] [place] [address]- 9968 Feb, [facility] [place] [facility] [address] [id number] [place] [address]- 5159 Feb, [facility] [place] [facility] [address] [id number] [place] [address]- 4105 Nov, [facility] [place] [facility] [address] [id number] [place] [address]- 2370 Nov, [facility] [place] [facility] [address] [id number] [place] [address]- 7860 Nov, [facility] [place] [facility] [address] [id number] [place] [address]- 8520 Nov, [facility] [place] [facility] [address] [id number] [place] [address]- 6339 Nov, [facility] [place] [facility] [address] [id number] [place] [address]- 6612 Nov, [facility] [place] [facility] [address] [id number] [place] [address]- 4394 Aug, [facility] [place] [facility] [address] [id number] [place] [address]- 0259 Aug, [facility] [place] [facility] [address] [id number] [place] [address]- 4099 Aug, [facility] [place] [facility] [address] [id number] [place] [address]- 1012 Aug, [facility] [place] [facility] [address] [id number] [place] [address]- 5074 May, [facility] [place] [facility] [address] [id number] [place] [address]- 0677 Apr, [facility] [place] [facility] [address] [id number] [place] [address]- 4636 11 Apr, 2012 [facility] [place] [facility] [address] [id number] [place] [address]- 5376 17 Jan, 2012 [facility] [place] [facility] [address] [id number] [place] [address]- 7726 17 Jan, 2012 [facility] [place] [facility] [address] [id number] [place] [address]- 9656 Jan, [facility] [place] [facility] [address] [id number] [place] [address]- 3791 17 Jan, 2012 [facility] [place] [facility] [address] [id number] [place] [address]- 7275 Jan, [facility] [place] [facility] [address] [id number] [place] [address]- 8366 Jan, [facility] [place] [facility] [address] [id number] [place] [address]- 7192 Jan, [facility] [place] [facility] [address] [id number] [place] [address]- 1997 Jan, [facility] [place] [facility] [address] [id number] [place] [address]- 5366 Jan, [facility] [place] [facility] [address] [id number] [place] [address]- 7209 Jan, [facility] [place] [facility] [address] [id number] [place] [address]- 8179 Jan, [facility] [place] [facility] [address] [id number] [place] [address]- 0952 Jan, [facility] [place] [facility] [address] [id number] [place] [address]- 6109 Jan, [facility] [place] [facility] [address] [id number] [place] [address]- 9901 Dec, [facility] [place] [facility] [address] [id number] [place] [address]- 1736 Dec, [facility] [place] [facility] [address] [id number] [place] [address]- 6569 Dec, [facility] [place] [facility] [address] [id number] [place] [address]- 4526 Sep, [facility] [place] [facility] [address] [id number] [place] [address]- 7526 Sep, [facility] [place] [facility] [address] [id number] [place] [address]- 4542 Sep, [facility] [place] [facility] [address] [id number] [place] [address]- 7805 Aug, [facility] [place] [facility] [address] [id number] [place] [address]- 7341 Aug, [facility] [place] [facility] [address] [id number] [place] [address]- 0682 Aug, [facility] [place] [facility] [address] [id number] [place] [address]- 8785 June, [facility] [place] [facility] [address] [id number] [place] [address]- 8171 Apr, [facility] [place] [facility] [address] [id number] [place] [address]- 2710 Apr, [facility] [place] [facility] [address] [id number] [place] [address]- 4061 Mar, [facility] [place] [facility] [address] [id number] [place] [address]- 9893 Feb, [facility] [place] [facility] [address] [id number] [place] [address]- 2989 Feb, [facility] [place] [facility] [address] [id number] [place] [address]- 6307 Jan, [facility] [place] [facility] [address] [id number] [place] [address] Jan, [facility] [place] [facility] [address] [address] 11 Dec, 2010 [facility] [address] [address] Dec, [facility] [id number] [place] [address] Dec, [facility] [address] [address] Nov, [facility] [address] [address] 15 Sep, 2010 [facility] [id number] [place] [address] Apr, [facility] [id number] [address] 16 Mar, 2010 [facility] [id number] [place] [address] Jan, [facility] [address] [address] Dec, [facility] [address] [place] [address] Nov, [facility] [address] [place] [address] Sep, [facility] [address] [place] [address] Jul, [facility] [id number] [address] Feb, [facility] [address] [place] [address] Jan, IMMUNIZATIONS No Known Immunizations SOCIAL HISTORY Never Assessed REASON FOR VISIT Hydrocodone- 09/12/16 PLAN OF CARE VITAL SIGNS MEDICATIONS Medication Instructions Dosage Frequency Start Date End Date Duration Status Hydrocodone-Acetaminophen 7.5-325 MG Orally 3 times a day 1 tablet as needed Aug, 28 days Active RESULTS No Results [...]
--- OUTSIDE RECORDS SUMMARY | 2018-01-15 21:19 | XMS REPORT ---
Author Author ROB RAMIREZ Organization [facility] Address [address] [place] [address] Care Team Providers Care Rubber Covering Machine Operator Name Role Phone ROB RAMIREZ Unavailable PROBLEMS Type Condition ICD9-CM Code [id number]-AF Code Onset Dates Condition Status SNOMED Code Problem Ingrowing nail L60.0 Active 939208072 Problem 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 Active 278585245 Problem Cardiac disease I51.9 Active 72082108 Problem Cervical spinal stenosis M48.02 Active 61002587 Problem Other chronic pain G89.29 Active 33795685 Problem Polyneuropathy associated with underlying disease G63 Active 205329086 Problem Obesity E66.9 Active 632448055 Problem Foot pain, left M79.672 Active 60211525 Problem Erectile dysfunction due to arterial insufficiency N52.01 Active 937002012 Problem HTN (hypertension) I10 Active 75071674 ALLERGIES No Information SOCIAL HISTORY Never Assessed [...] Surgical History Cardiac stent 11/2015 Hospitalization History [place] with stent placement 03-06-15 Hospitalization History Cardiac Stent Collapsed/Heart attack 11/2015
--- OUTSIDE RECORDS SUMMARY | 2018-01-15 21:19 | XMS REPORT ---
Author Author ROB RAMIREZ Organization [facility] Address [address] [place] [address] Care Team Providers Care Off Track Betting Manager Name Role Phone ROB RAMIREZ Unavailable PROBLEMS Type Condition ICD9-CM Code DTH71-QL Code Onset Dates Condition Status SNOMED Code Problem 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 Active 855166958 Problem Erectile dysfunction due to arterial insufficiency N52.01 Active 622386109 Problem Polyneuropathy associated with underlying disease G63 Active 280403265 Problem Morbid (severe) obesity due to excess calories E66.01 Active 596837328 Problem 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 Active 3740422782760 Problem Recurrent right knee instability M23.51 Active 884373739 Problem Other chronic pain G89.29 Active 83745823 Problem Mixed hyperlipidemia E78.2 Active 125991586 Problem Morbid obesity E66.01 Active 923385476 Problem Foot pain, left M79.672 Active 92863181 Problem Obesity E66.9 Active 219684219 Problem Cervical spinal stenosis M48.02 Active 09748899 Problem HTN (hypertension) I10 Active 07978411 Problem Ingrowing nail L60.0 Active 072720469 Problem Cardiac disease I51.9 Active 56579131 ALLERGIES No Information ENCOUNTERS Encounter Location Date Diagnosis [facility] [address], [place] [address] May, Cervical spinal stenosis M48.02 [facility] [address] [place] [address] 91150- 5429 Apr, Cervical spinal stenosis M48.02 [facility] [address] [place] [address] 89288 -0940 14 Mar, 2017 Neck pain on right side M54.2 and BMI 50.0-59.9, adult Z68.43 [facility] [id number] [place] [address] 90495- 1022 Mar, Cervical spinal stenosis M48.02 [facility] [id number] [place] [address] 33947- 3407 Feb, Cervical spinal stenosis M48.02 [facility] [id number] [place] [address] 59032- 8568 Feb, [place] [id number] [place] [address] 62768- 2194 Feb, Morbid (severe) obesity due to excess calories E66.01 and 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 [place] [id number] [place] [address] 41257- 7067 Feb, Mixed hyperlipidemia E78.2 and HTN (hypertension) I10 [place] [address] 43180- 7184 Feb, Cervical spinal stenosis M48.02 ; HTN (hypertension) I10 ; Mixed hyperlipidemia E78.2 ; Recurrent right knee instability M23.51 and Morbid obesity E66.01 [place] [id number] [place] [address] 97949- 2587 Jan, Other chronic pain G89.29 [place] [id number] [place] [address] 18263- 9015 Dec, Other chronic pain G89.29 [place] [id number] [place] [address] 49263- 5343 Nov, Other chronic pain G89.29 [place] [id number] [place] [address] 44913- 2809 Oct, Other chronic pain G89.29 [place] [id number] [place] [address] 69624- 0880 Sep, Other chronic pain G89.29 [place] [address] 86436- 5317 Sep, Other chronic pain G89.29 [facility] [id number] [place] [address] 01869- 1757 Sep, Tenderness of left calf M79.662 and Cervical spinal stenosis M48.02 [facility] [id number] [place] [address] 78528- 9346 Aug, Other chronic pain G89.29 [facility] [id number] [place] [address] 73167- 0742 Aug, Cervical radiculopathy M54.12 [facility] [id number] [place] [address] 38862 -4875 Aug, Cervical neuritis M54.12 [facility] [id number] [place] [address] 07394- 5016 Jul, Other chronic pain G89.29 [facility] [address] [id number] Jul, Dental caries K02.9 [facility] [address] 30081- 0147 Jul, Other chronic pain G89.29 [facility] [id number] [place] [address] 09318- 8491 June, Other chronic pain G89.29 [facility] [id number] [place] [address] [id number] May, Dental examination Z01.20 [facility] [id number] [place] [address] 19830- 9073 May, Other chronic pain G89.29 [facility] [id number] [place] [address] 48659- 5409 Apr, Cervical spinal stenosis M48.02 and Drug-induced constipation K59.03 [facility] [id number] [place] [address] 14347- 6872 Apr, [facility] [address], [place] [address] 7173 13 Apr, 2016 Other chronic pain G89.29 [facility] [id number] [place] [address] 65791- 2092 10 Apr, 2016 [facility] [address], [place] [address] 4177 Mar, [facility] [id number] [place] [address] 31267- 0751 Mar, Other chronic pain G89.29 [facility] [address] [place] [address] 842650- 6255 Feb, Other chronic pain G89.29 [facility] [id number] [place] [address] 76018- 8116 15 Jan, 2016 Other chronic pain G89.29 [facility] [id number] [place] [address] 18256- 1342 Dec, [facility] [id number] [place] [address] 51827- 1355 Dec, Other chronic pain G89.29 [facility] [id number] [place] [address] 07125- 3617 Dec, Cervical spinal stenosis M48.02 ; Encounter for immunization Z23 ; Polyneuropathy associated with underlying disease G63 and Erectile dysfunction due to arterial insufficiency N52.01 [facility] [address], [place] [address]- 1140 Nov, [facility] [address] [place] [address] 22151- 4026 Nov, [facility] [id number] [place] [address] 26588- 3519 Oct, [facility] [address] [place] [address] 77281- 6791 Sep, [facility] [id number] [place] [address] 14071- 6161 Aug, [facility] [address] [place] [address] 86259- 3867 Jul, Other chronic pain G89.29 [facility] [id number] [place] [address] 94853 -2818 Jul, Angioedema, initial encounter T78.3XXA and Dental abscess K04.7 [facility] [address] 53435- 9801 Jul, Leg pain M79.606 [facility] [address] 38164- 1483 June, Other chronic pain G89.29 and Encounter for immunization Z23 [place] [id number] [place] [address] 55129- 7832 June, [facility] [address] 48497- 0247 May, Leg pain M79.606 [facility] [id number] [place] [address] 25174- 1282 Apr, Leg pain M79.606 and Cervical spinal stenosis M48.02 [facility] [id number] [place] [address] 93786- 3302 Apr, [facility] [id number] [place] [address] 97231- 8458 Mar, High ankle sprain of left lower extremity S93.432A [facility] [id number] [place] [address] 51334- 1586 Mar, [facility] [id number] [place] [address] 83873- 8525 Mar, Left ankle pain M25.572 [facility] [address] [place] [address] 44776- 1332 Mar, [facility] [id number] [place] [address] 63151- 1335 Mar, [facility] [id number] [place] [address] 98150- 5779 Mar, Leg pain M79.606 [facility] [id number] [place] [address] 31834- 4400 Mar, [facility] [address] 43614- 0585 Mar, Ankle pain M25.579 ; Cardiac disease I51.9 ; Obesity E66.9 ; Leg pain M79.606 ; HTN (hypertension) I10 ; Ingrowing nail L60.0 ; 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 and Foot pain, left M79.672 [facility] [id number] [place] [address] 36085- 3318 Feb, [facility] [id number] [place] [address] 87450- 2532 Jan, [facility] [id number] [place] [address] 74658- 7330 Dec, Cervical spinal stenosis M48.02 and Hypertension I10 [facility] [id number] [place] [address] 89370- 9829 Dec, [facility] [id number] [place] [address] 40764- 6249 Dec, [facility] [id number] [place] [address] 35984- 1985 Dec, [facility] [id number] [place] [address] 22056- 6409 Nov, [facility] [id number] [place] [address] 43375- 4788 Nov, [facility] [id number] [place] [address] 11498- 4891 Oct, [facility] [address], [place] [address]- 9672 Oct, [facility] [address] [address]- 4737 Oct, [facility] [address], [place] [address]- 2546 Oct, [facility] [address] [place] [address] 00452- 4545 Sep, [facility] [id number] [address]- 0880 Sep, [facility] [id number] [place] [address] 43063- 2460 Sep, Spinal stenosis in cervical region 723.0 ; Essential hypertension, benign 401.1 and Erectile dysfunction 607.84 [facility] [address] [address]- 9930 Sep, [facility] [address], [place] [address]- 5134 Aug, [facility] [address] [address]- 5939 Aug, [facility] [address], [place] [address]- 7126 Jul, [facility] [address] [address]- 6145 June, [facility] [address], [place] [address]- 7818 June, [facility] [address] [address]- 1266 June, [facility] [address], [place] [address]- 3066 June, [facility] [id number] [address]- 6416 05 May, 2015 Spinal stenosis in cervical region 723.0 and Essential hypertension, benign 401.1 [facility] [id number] [place] [address]- 3915 14 May, 2014 [facility] [address] [facility] [id number] [place] [address]- 2136 13 May, 2014 [facility] [id number] [place] [address]- 4528 16 Apr, 2014 [facility] [address] [facility] [id number] [address]- 4758 16 Apr, 2014 [facility] [address] [facility] [id number] [place] [address]- 6481 Apr, [facility] [id number] [place] [address]- 1003 Apr, [facility] [address], [place] [address]- 3392 16 Mar, 2014 [facility] [id number] [place] [address]- 7299 Mar, [facility] [id number] [place] [address]- 5468 Feb, [facility] [id number] [place] [address]- 2716 Feb, [facility] [address], [place] [address]- 9964 Feb, [facility] [address] [facility] [id number], [place] [address]- 6249 Feb, [facility] [id number] 0668 Feb, [facility] [address] [facility] [id number], [place] [address]- 5115 Jan, [facility] [id number] 8630 Jan, [facility] [place] [facility] [address] [id number] [place] [address]- 0283 Jan, [facility] [place] [facility] [address] [id number] [place] [address]- 4086 Jan, [facility] [place] [facility] [address] [id number] [place] [address]- 2719 Dec, [facility] [place] [facility] [address] [id number] [place] [address]- 7169 Dec, [facility] [place] [facility] [address] [id number] [place] [address]- 8766 Nov, [facility] [place] [facility] [address] [id number] [place] [address]- 9244 Nov, [facility] [place] [facility] [address] [id number] [place] [address]- 3227 Oct, [facility] [place] [facility] [address] [id number] [place] [address]- 6016 Oct, [facility] [place] [facility] [address] [id number] [place] [address]- 5130 Oct, [facility] [place] [facility] [address] [id number] [place] [address]- 4506 Oct, [facility] [place] [facility] [address] [id number] [place] [address]- 9318 Sep, [facility] [place] [facility] [address] [id number] [place] [address]- 3165 Sep, [facility] [place] [facility] [address] [id number] [place] [address]- 1285 Jul, [facility] [place] [facility] [address] [id number] [place] [address]- 9441 Jul, [facility] [place] [facility] [address] [id number] [place] 6255 Jul, [facility] [place] [facility] [address] [id number] [place] [address]- 0846 Jul, [facility] [place] [facility] [address] [id number] [place] [address]- 4108 June, [facility] [place] [facility] [address] [id number] [place] [address]- 0667 June, [facility] [place] [facility] [address] [id number] [place] [address]- 0267 June, [facility] [place] [facility] [address] [id number] [place] [address]- 6095 June, [facility] [place] [facility] [address] [id number] [place] [address]- 8886 Mar, [facility] [place] [facility] [address] [id number] [place] [address]- 9846 Mar, [facility] [place] [facility] [address] [id number] [place] [address]- 1303 Mar, [facility] [place] [facility] [address] [id number] [place] [address]- 8731 Mar, [facility] [place] [facility] [address] [id number] [place] [address]- 7195 Mar, [facility] [place] [facility] [address] [id number] [place] [address]- 5768 Feb, [facility] [place] [facility] [address] [id number] [place] [address]- 8156 Feb, [facility] [place] [facility] [address] [id number] [place] [address]- 6454 Feb, [facility] [place] [facility] [address] [id number] [place] [address]- 4725 Feb, [facility] [place] [facility] [address] [id number] [place] [address]- 1572 Feb, [facility] [place] [facility] [address] [id number] [place] [address]- 6038 Feb, [facility] [place] [facility] [address] [id number] [place] [address]- 3296 Feb, [facility] [place] [facility] [address] [id number] [place] [address]- 4853 Feb, [facility] [place] [facility] [address] [id number] [place] [address] 2546 Feb, [facility] [place] [facility] [address] [id number] [place] [address]- 6128 Feb, [facility] [place] [facility] [address] [id number] [place] [address]- 2382 Nov, [facility] [place] [facility] [address] [id number] [place] [address]- 3297 Nov, [facility] [place] [facility] [address] [id number] [place] [address]- 4014 Nov, [facility] [place] [facility] [address] [id number] [place] [address]- 1514 Nov, [facility] [place] [facility] [address] [id number] [place] [address]- 7183 Nov, [facility] [place] [facility] [address] [id number] [place] [address]- 5196 Nov, [facility] [place] [facility] [address] [id number] [place] [address]- 1464 Aug, [facility] [place] [facility] [address] [id number] [place] [address]- 6631 Aug, [facility] [place] [facility] [address] [id number] [place] [address]- 4029 Aug, [facility] [place] [facility] [address] [id number] [place] [address]- 5119 Aug, [facility] [place] [facility] [address] [id number] [place] [address]- 2546 May, [facility] [place] [facility] [address] [id number] [place] [address]- 0922 Apr, [facility] [address] [id number] [place] [address]- 6709 11 Apr, 2012 [facility] [place] [facility] [address] [id number] [place] [address]- 2194 17 Jan, 2012 [facility] [place] [facility] [address] [id number] [place] 8132 17 Jan, 2012 [facility] [place] [facility] [address] [id number] [place] [address]- 6042 17 Jan, 2012 [facility] [place] [facility] [address] [id number] [place] [address]- 5060 17 Jan, 2012 [facility] [place] [facility] [address] [id number] [place] [address]- 3480 17 Jan, 2012 [facility] [place] [facility] [address] [id number] [place] [address]- 2421 Jan, [facility] [place] [facility] [address] [id number] [place] [address]- 3986 Jan, [facility] [place] [facility] [address] [id number] [place] [address]- 0856 Jan, [facility] [place] [facility] [address] [id number] [place] [address]- 6867 Jan, [facility] [place] [facility] [address] [id number] [place] [address]- 7708 Jan, [facility] [place] [facility] [address] [id number] [place] [address]- 1934 Jan, [facility] [place] [facility] [address] [id number] [place] [address]- 5747 Jan, [facility] [place] [facility] [address] [id number] [place] [address]- 9386 Jan, [facility] [place] [facility] [address] [id number] [place] [address]- 1142 Dec, [facility] [place] [facility] [address] [id number] [place] [address]- 1355 Dec, [facility] [place] [facility] [address] [id number] [place] [address]- 3969 Dec, [facility] [place] [facility] [address] [id number] [place] [address]- 8270 Sep, [facility] [place] [facility] [address] [id number] [place] [address]- 8147 Sep, [facility] [place] [facility] [address] [id number] [place] [address]- 6779 Sep, [facility] [place] [facility] [address] [id number] [place] [address]- 3418 Aug, [facility] [place] [facility] [address] [id number] [place] [address]- 4965 Aug, [facility] [place] [facility] [address] [id number] [place] [address]- 8028 Aug, [facility] [place] [facility] [address] [id number] [place] [address]- 6398 June, [facility] [place] [facility] [address] [id number] [place] [address]- 7056 Apr, [facility] [place] [facility] [address] [id number] [place] [address] Apr, [facility] [place] [facility] [address] [id number] [place] [address] Mar, [facility] [place] [facility] [address] [id number] [place] [address] Feb, [facility] [place] [facility] [address] [id number] [place] [address] Feb, [facility] [place] [facility] [address] [id number] [place] [address] Jan, [facility] [place] [facility] [address] [id number] [place] [address] Jan, [facility] [address] [facility] [id number], [place] [address] Dec, [facility] [address] [facility] [id number], [place] [address] Dec, [facility] [address] [facility] [id number], [place] [address] Dec, [facility] [id number] [address] Nov, [facility] [address] [facility] [id number], [place] [address] Sep, [facility] [address] [facility] [id number] [address] Apr, [facility] [id number], [place] [address] 16 Mar, 2010 [facility] [id number], [place] [address] Jan, [facility] [id number], [place] [address] Dec, [facility] [id number], [place] [address] Nov, [facility] [id number], [place] [address] Sep, [facility] [id number], [place] [address] Jul, [facility] [address] [id number], [place] [address] Feb, [facility] [id number], [place] [address] Jan, IMMUNIZATIONS No Known Immunizations SOCIAL HISTORY Never Assessed REASON FOR VISIT Hydrocodone 10/10 PLAN OF CARE VITAL SIGNS MEDICATIONS Medication Instructions Dosage Frequency Start Date End Date Duration Status Hydrocodone-Acetaminophen 7.5-325 MG Orally 3 times a day 1 tablet as needed 8h Sep, 28 days Active RESULTS No Results PROCEDURES No Known procedures INSTRUCTIONS MEDICATIONS ADMINISTERED No Known Medications MEDICAL (GENERAL) HISTORY Type Description Date Medical History spinal compression fracture Medical History cardiovascular disease Medical History stent placed 03-07-15 Surgical History cardiac stent 03-07-15 Surgical History Cardiac stent 11/2015 Hospitalization History [place] with stent placement 03-06-15 Hospitalization History Cardiac Stent Collapsed/Heart attack 11/2015
--- OUTSIDE RECORDS SUMMARY | 2018-01-15 21:19 | XMS REPORT ---
Author Author ROB RAMIREZ Organization [facility] Address [address] [place] [address] Care Team Providers Care Safety Clothing And Equipment Developer Name Role Phone ROB RAMIREZ Unavailable PROBLEMS Type Condition ICD9-CM Code SPV36-RI Code Onset Dates Condition Status SNOMED Code Problem 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 Active 124063947 Problem Erectile dysfunction due to arterial insufficiency N52.01 Active 533223174 Problem Polyneuropathy associated with underlying disease G63 Active 575610923 Problem Morbid (severe) obesity due to excess calories E66.01 Active 343761025 Problem Coronary artery disease involving [place] coronary artery of [place] 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 Active 1745856832997 Problem Recurrent right knee instability M23.51 Active 524605024 Problem Other chronic pain G89.29 Active 01345508 Problem Mixed hyperlipidemia E78.2 Active 847314186 Problem Morbid obesity E66.01 Active 819070837 Problem Foot pain, left M79.672 Active 31810115 Problem Obesity E66.9 Active 688972555 Problem Cervical spinal stenosis M48.02 Active 69559158 Problem HTN (hypertension) I10 Active 75709175 Problem Ingrowing nail L60.0 Active 744425730 Problem Cardiac disease I51.9 Active 70061893 ALLERGIES No Information ENCOUNTERS Encounter Location Date Diagnosis [facility] [id number] [place] [address] 97238- 9596 Apr, Cervical spinal stenosis M48.02 [facility] [id number] [place] [address] 63937 -3765 14 Mar, 2017 Neck pain on right side M54.2 and BMI 50.0-59.9, adult Z68.43 [facility] [address] [address] 06 Mar, 2017 Cervical spinal stenosis M48.02 [facility] [id number] [address] 4237 Feb, Cervical spinal stenosis M48.02 [facility] [id number] [place] [address] 30869- 8848 Feb, [facility] [id number] [place] [address] 22573- 6476 Feb, Morbid (severe) obesity due to excess calories E66.01 and Coronary artery disease involving [place] coronary artery of [place] 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 [facility] [id number] [address] 05 Feb, 2017 Mixed hyperlipidemia E78.2 and HTN (hypertension) I10 [facility] [id number] [place] [address] 01523- 4875 Feb, Cervical spinal stenosis M48.02 ; HTN (hypertension) I10 ; Mixed hyperlipidemia E78.2 ; Recurrent right knee instability M23.51 and Morbid obesity E66.01 [facility] [id number] [place] [address] 80045- 3343 Jan, Other chronic pain G89.29 [facility] [id number] [place] [address] 26767- 8942 Dec, Other chronic pain G89.29 [facility] [id number] [address] 9734 Nov, Other chronic pain G89.29 [facility] [id number] [place] [address] 28489- 8022 Oct, Other chronic pain G89.29 [facility] [id number] [place] [address] 23406- 3431 Sep, Other chronic pain G89.29 [facility] [id number] [place] [address] 61709- 1748 Sep, Other chronic pain G89.29 [facility] [id number] [place] [address] 14389- 7608 Sep, Tenderness of left calf M79.662 and Cervical spinal stenosis M48.02 [facility] [id number] [place] [address] 61806- 7432 Aug, Other chronic pain G89.29 [facility] [id number] [place] [address] 53379- 4833 Aug, Cervical radiculopathy M54.12 [facility] [id number] [place] [address] 89050 -9104 Aug, Cervical neuritis M54.12 [facility] [id number] [place] [address] 81073- 8159 Jul, Other chronic pain G89.29 [facility] [id number] [place] [address] [id number] Jul, Dental caries K02.9 [facility] [id number] [place] [address] 32298- 0809 Jul, Other chronic pain G89.29 [facility] [id number] [place] [address] 69099- 6780 June, Other chronic pain G89.29 [facility] [id number] [place] [address] [id number] May, Dental examination Z01.20 [facility] [id number] [place] [address] 73704- 4995 May, Other chronic pain G89.29 [facility] [id number] [place] [address] 92238- 3017 Apr, Cervical spinal stenosis M48.02 and Drug-induced constipation K59.03 [facility] [id number] [place] [address] 01348- 1897 Apr, [facility] [id number] [place] [address] 63244- 7514 Apr, Other chronic pain G89.29 [facility] [address] [address]- 2535 Apr, [facility] [id number] [place] [address] 50486- 7458 Mar, [facility] [address] [address]- 254 10 Mar, 2016 Other chronic pain G89.29 [facility] [id number] [place] [address] 54512 2549 Feb, Other chronic pain G89.29 [facility] [id number] [place] [address] 48052 2547 Jan, Other chronic pain G89.29 [facility] [id number] [place] [address] 43554- 6307 Dec, [facility] [id number] [place] [address] 48595- 9257 16 Dec, 2015 Other chronic pain G89.29 [facility] [id number] [place] [address] 43341- 6383 Dec, Cervical spinal stenosis M48.02 ; Encounter for immunization Z23 ; Polyneuropathy associated with underlying disease G63 and Erectile dysfunction due to arterial insufficiency N52.01 [facility] [address] [address]- 0481 Nov, [facility] [id number] [address]- 3062 Nov, [facility] [id number] [place] [address] 59869- 2541 Oct, [facility] [id number] [place] [address] 30800- 7178 Sep, [facility] [address] [address]- 2540 Aug, [facility] [id number] [place] [address] 76320- 8555 Jul, Other chronic pain G89.29 [facility] [id number] [place] [address] 33286 -9369 Jul, Angioedema, initial encounter T78.3XXA and Dental abscess K04.7 [facility] [id number] [place] [address] 97994- 4221 Jul, Leg pain M79.606 [facility] [address] 35378- 7072 June, Other chronic pain G89.29 and Encounter for immunization Z23 [facility] [address] 83998- 0691 June, [facility] [address] 62055- 7112 May, Leg pain M79.606 [facility] [address] 52621- 2584 Apr, Leg pain M79.606 and Cervical spinal stenosis M48.02 [facility] [address] 76737- 4388 Apr, [facility] [id number] [place] [address] 92015- 9388 Mar, High ankle sprain of left lower extremity S93.432A [facility] [id number] [place] [address] 82752- 2491 Mar, [facility] [id number] [place] [address] 74867- 3604 Mar, Left ankle pain M25.572 [facility] [id number] [place] [address] 67454- 8601 Mar, [facility] [id number] [place] [address] 59473- 6903 Mar, [facility] [address] [place] [address]- 2194 Mar, Leg pain M79.606 [facility] [id number] [place] [address] 53722- 1085 Mar, [facility] [id number] [place] [address] 45947- 3497 Mar, Ankle pain M25.579 ; Cardiac disease I51.9 ; Obesity E66.9 ; Leg pain M79.606 ; HTN (hypertension) I10 ; Ingrowing nail L60.0 ; 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 and Foot pain, left M79.672 [facility] [address] 98902- 7653 Feb, [facility] [id number] [place] [address] 27682- 0302 Jan, [facility] [address] 98954- 1391 Dec, Cervical spinal stenosis M48.02 and Hypertension I10 [facility] [id number] [place] [address] 73302- 6050 Dec, [facility] [id number] [place] [address] 19764- 2979 Dec, [facility] [id number] [place] [address] 26296- 1045 Dec, [facility] [id number] [place] [address] 82513- 4853 Nov, [facility] [id number] [place] [address] 78489- 3192 Nov, [facility] [id number] [place] [address] 15771- 3568 Oct, [facility] [id number] [place] [address] 98432- 0953 Oct, [facility] [address] [place] [address]- 0574 Oct, [facility] [address] [address]- 4889 Oct, [facility] [address] [address]- 7065 Sep, [facility] [address] [address]- 5238 Sep, [facility] [address] [address]- 1057 Sep, Spinal stenosis in cervical region 723.0 ; Essential hypertension, benign 401.1 and Erectile dysfunction 607.84 [facility] [address] [address]- 1048 Sep, [facility] [address] [address]- 8669 Aug, [facility] [address] [address]- 9605 Aug, [facility] [address] [address]- 6904 Jul, [facility] [address] [address]- 8584 June, [facility] [address] [address]- 7575 June, [facility] [address] [address]- 0425 June, [facility] [address] [address]- 3139 June, [facility] [id number] [address]- 8761 June, Spinal stenosis in cervical region 723.0 and Essential hypertension, benign 401.1 [facility] [address] [address]- 2269 14 May, 2014 [facility] [place] [facility] [address] [id number] [place] [address]- 2196 13 May, 2014 [facility] [place] [facility] [address] [id number] [place] [address]- 6699 16 Apr, 2014 [facility] [place] [facility] [address] [id number] [place] [address]- 1528 16 Apr, 2014 [facility] [place] [facility] [address] [id number] [place] [address]- 9973 Apr, [facility] [place] [facility] [address] [id number] [place] [address]- 7627 Apr, [facility] [place] [facility] [address] [id number] [place] [address]- 5328 Mar, [facility] [place] [facility] [address] [id number] [place] [address]- 9458 Mar, [facility] [place] [facility] [address] [id number] [place] [address]- 7819 Feb, [facility] [place] [facility] [address] [id number] [place] [address]- 3712 Feb, [facility] [place] [facility] [address] [id number] [place] [address]- 8817 Feb, [facility] [place] [facility] [address] [id number] [place] [address]- 9010 Feb, [facility] [place] [facility] [address] [id number] [place] [address]- 7008 Feb, [facility] [place] [facility] [address] [id number] [place] [address]- 6367 Jan, [facility] [place] [facility] [address] [id number] [place] [address]- 9957 Jan, [facility] [place] [facility] [address] [id number] [place] [address]- 3056 Jan, [facility] [place] [facility] [address] [id number] [place] [address]- 0976 Jan, [facility] [place] [facility] [address] [id number] [place] [address]- 5057 Dec, [facility] [place] [facility] [address] [id number] [place] [address]- 4888 Dec, [facility] [place] [facility] [address] [id number] [place] [address]- 2539 Nov, [facility] [place] [facility] [address] [id number] [place] [address]- 2474 Nov, [facility] [place] [facility] [address] [id number] [place] [address]- 2398 Oct, [facility] [place] [facility] [address] [id number] [place] [address]- 2303 Oct, [facility] [place] [facility] [address] [id number] [place] [address]- 9211 Oct, [facility] [place] [facility] [address] [id number] [place] [address]- 1141 Oct, [facility] [place] [facility] [address] [id number] [place] [address]- 6767 Sep, [facility] [place] [facility] [address] [id number] [place] [address]- 0963 Sep, [facility] [place] [facility] [address] [id number] [place] [address]- 5907 Jul, [facility] [place] [facility] [address] [id number] [place] [address]- 8361 Jul, [facility] [place] [facility] [address] [id number] [place] [address]- 9502 Jul, [facility] [place] [facility] [address] [id number] [place] [address]- 4112 Jul, [facility] [place] [facility] [address] [id number] [place] [address]- 8175 June, [facility] [place] [facility] [address] [id number] [place] [address]- 6237 June, [facility] [place] [facility] [address] [id number] [place] [address]- 8096 June, [facility] [place] [facility] [address] [id number] [place] [address]- 6519 June, [facility] [place] [facility] [address] [id number] [place] [address]- 4897 Mar, [facility] [place] [facility] [address] [id number] [place] [address]- 6198 Mar, [facility] [place] [facility] [address] [id number] [place] [address]- 7888 Mar, [facility] [place] [facility] [address] [id number] [place] [address]- 7401 Mar, [facility] [place] [facility] [address] [id number] [place] [address]- 3868 Mar, [facility] [place] [facility] [address] [id number] [place] [address]- 5805 Feb, [facility] [place] [facility] [address] [id number] [place] [address]- 7420 Feb, [facility] [place] [facility] [address] [id number] [place] [address]- 0393 Feb, [facility] [place] [facility] [address] [id number] [place] [address]- 4613 Feb, [facility] [place] [facility] [address] [id number] [place] [address]- 7775 Feb, [facility] [place] [facility] [address] [id number] [place] [address]- 6521 Feb, [facility] [place] [facility] [address] [id number] [place] [address]- 4109 Feb, [facility] [place] [facility] [address] [id number] [place] [address]- 7793 Feb, [facility] [address] [id number] [place] [address]- 4149 Feb, [facility] [place] [facility] [address] [id number] [place] [address]- 5553 Feb, [facility] [place] [facility] [address] [id number] [place] [address]- 6639 Nov, [facility] [place] [facility] [address] [id number] [place] [address]- 2897 Nov, [facility] [place] [facility] [address] [id number] [place] [address]- 5992 Nov, [facility] [place] [facility] [address] [id number] [place] [address]- 6848 Nov, [facility] [place] [facility] [address] [id number] [place] [address]- 5257 Nov, [facility] [place] [facility] [address] [id number] [place] [address]- 7497 Nov, [facility] [place] [facility] [address] [id number] [place] [address]- 7324 Aug, [facility] [place] [facility] [address] [id number] [place] [address]- 5125 Aug, [facility] [place] [facility] [address] [id number] [place] [address]- 7621 Aug, [facility] [place] [facility] [address] [id number] [place] [address]- 2544 Aug, [facility] [place] [facility] [address] [id number] [place] [address]- 1152 May, [facility] [place] [facility] [address] [id number] [place] [address]- 2546 Apr, [facility] [place] [facility] [address] [id number] [place] [address]- 4081 Apr, [facility] [place] [facility] [address] [id number] [place] [address]- 2626 17 Jan, 2012 [facility] [place] [facility] [address] [id number] [place] [address]- 2496 Jan, [facility] [place] [facility] [address] [id number] [place] [address]- 4916 17 Jan, 2012 [facility] [place] [facility] [address] [id number] [place] [address]- 8486 Jan, [facility] [place] [facility] [address] [id number] [place] [address]- 8232 Jan, [facility] [place] [facility] [address] [id number] [place] [address]- 0456 Jan, [facility] [place] [facility] [address] [id number] [place] [address]- 5385 Jan, [facility] [place] [facility] [address] [id number] [place] [address]- 7590 Jan, [facility] [place] [facility] [address] [id number] [place] [address]- 4989 Jan, [facility] [place] [facility] [address] [id number] [place] [address]- 9509 Jan, [facility] [place] [facility] [address] [id number] [place] [address]- 2874 Jan, [facility] [place] [facility] [address] [id number] [place] [address]- 3311 Jan, [facility] [place] [facility] [address] [id number] [place] [address]- 6037 Jan, [facility] [place] [facility] [address] [id number] [place] [address]- 4949 Dec, [facility] [place] [facility] [address] [id number] [place] [address]- 5892 Dec, [facility] [place] [facility] [address] [id number] [place] [address]- 5366 Dec, [facility] [place] [facility] [address] [id number] [place] [address]- 4259 Sep, [facility] [place] [facility] [address] [id number] [place] [address]- 2746 Sep, [facility] [place] [facility] [address] [id number] [place] [address]- 8086 Sep, [facility] [place] [facility] [address] [id number] [place] [address]- 6048 Aug, [facility] [place] [facility] [address] [id number] [place] [address]- 7787 Aug, [facility] [place] [facility] [address] [id number] [place] [address]- 9987 Aug, [facility] [place] [facility] [address] [id number] [place] [address]- 2807 June, [facility] [place] [facility] [address] [id number] [place] [address]- 4592 Apr, [facility] [place] [facility] [address] [id number] [place] [address] Apr, [facility] [place] [facility] [address] [id number] [place] [address] Mar, [facility] [place] [facility] [address] [id number] [place] [address] Feb, [facility] [place] [facility] [address] [id number] [place] [address] 2016 Feb, [facility] [place] [facility] [address] [id number] [place] [address] Jan, [facility] [place] [facility] [address] [id number] [place] [address] Jan, [facility] [place] [facility] [address] [id number] [place] [address] Dec, [facility] [place] [facility] [id number] [address] Dec, [facility] [id number] [address] Dec, [facility] [id number] [address] Nov, [facility] [id number] [address] Sep, [facility] [id number] [address] Apr, [facility] [id number] [place] [address] Mar, [facility] [id number] [address] Jan, [facility] [id number] [place] [address] Dec, [facility] [id number] [address] Nov, [facility] [id number] [address] Sep, [facility] [id number] [address] Jul, [facility] [id number] [address] Feb, [facility] [id number] [address] Jan, IMMUNIZATIONS No Known Immunizations SOCIAL HISTORY Never Assessed REASON FOR VISIT Hydrocodone 7/3 PLAN OF CARE VITAL SIGNS MEDICATIONS Medication [...] History cardiovascular disease Medical History stent placed 1-23-16 Surgical History cardiac stent 03-07-15 Surgical History Cardiac stent 11/2015 Hospitalization History [facility] with stent placement 03-06-15 Hospitalization History Cardiac Stent Collapsed/Heart attack 11/2015
--- OUTSIDE RECORDS SUMMARY | 2018-01-15 21:20 | XMS REPORT ---
Author Author ROB RAMIREZ Organization [facility] Address [address] [place] [address] Care Team Providers Care Allocations Clerk Name Role Phone ROB RAMIREZ Unavailable PROBLEMS Type Condition ICD9-CM Code TLL59-KW Code Onset Dates Condition Status SNOMED Code Problem Polyneuropathy associated with underlying disease G63 Active 807366122 Problem Other chronic pain G89.29 Active 72661032 Problem Erectile dysfunction due to arterial insufficiency N52.01 Active 005512707 Problem Right leg weakness R29.898 Active [id number] Problem Morbid (severe) obesity due to excess calories E66.01 Active 554636081 Problem Morbid obesity E66.01 Active 654762268 Problem Recurrent right knee instability M23.51 Active 534580391 Problem Coronary artery disease involving [place] coronary artery of [place] 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 Active 7713454549989 Problem Mixed hyperlipidemia E78.2 Active 235293371 Problem Cervical spinal stenosis M48.02 Active 18175344 Problem Obesity E66.9 Active 005952769 Problem HTN (hypertension) I10 Active 39392829 Problem Ingrowing nail L60.0 Active 025070212 Problem Cardiac disease I51.9 Active 34979737 Problem Foot pain, left M79.672 Active 43426424 Problem 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 Active 520039866 ALLERGIES No Information ENCOUNTERS Encounter Location Date Diagnosis [facility] [address] [facility] [id number] [place] [address] 05 Jul, 2017 Medicare annual wellness visit, initial Z00.00 ; Morbid ( severe) obesity due to excess calories E66.01 ; Coronary artery disease involving [place] coronary artery of [place] 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 ; 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 ; Polyneuropathy associated with underlying disease G63 ; HTN (hypertension) I10 ; Mixed hyperlipidemia E78.2 ; BMI 50.0-59.9, adult Z68.43 and Encounter for immunization Z23 [place] [address] [address] Jul, Cervical spinal stenosis M48.02 ; HTN (hypertension) I10 ; Coronary artery disease involving [place] coronary artery of [place] 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 and Right leg weakness R29.898 [place] [address] [address]- 7594 June, Cervical spinal stenosis M48.02 [place] [address] 66972- 8443 June, Cervical spinal stenosis M48.02 [place] [address] 30031- 2952 May, Cervical spinal stenosis M48.02 [place] [address] 95668- 7275 Apr, Cervical spinal stenosis M48.02 [facility] [address] [address] Mar, Neck pain on right side M54.2 and BMI 50.0-59.9, adult Z68.43 [place] [address] 7[address]- 45[address] 06 Mar, 2017 Cervical spinal stenosis M48.02 [place] [address] 95280- 7322 Feb, Cervical spinal stenosis M48.02 [place] [address] 94989- 9799 Feb, [facility] [address] 33[address]- 3751 Feb, Morbid (severe) obesity due to excess calories E66.01 and Coronary artery disease involving [place] coronary artery of [place] 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 [facility] [address] 22854- 0664 Feb, Mixed hyperlipidemia E78.2 and HTN (hypertension) I10 [facility] [address] [place] [id number] [place] [address] 28631- 5348 Feb, Cervical spinal stenosis M48.02 ; HTN (hypertension) I10 ; Mixed hyperlipidemia E78.2 ; Recurrent right knee instability M23.51 and Morbid obesity E66.01 [facility] [address] [place] [id number] [place] [address] 23808- 9068 Jan, Other chronic pain G89.29 [facility] [address] [place] [id number] [place] [address] 49115- 3013 Dec, Other chronic pain G89.29 [facility] [address] 42265- 3216 Nov, Other chronic pain G89.29 [place] [address] [place] [id number] [place] [address] 37791- 0411 Oct, Other chronic pain G89.29 [facility] [address] [place] [id number] [place] [address] 94379- 2691 Sep, Other chronic pain G89.29 [facility] [address] 98203- 9625 Sep, Other chronic pain G89.29 [place] [address] [place] [id number] [place] [address] 71956- 1827 Sep, Tenderness of left calf M79.662 and Cervical spinal stenosis M48.02 [facility] [address] [place] [id number] [place] [address] 77222- 8054 Aug, Other chronic pain G89.29 [facility] [address] [place] [id number] [place] [address] 80056- 2526 Aug, Cervical radiculopathy M54.12 [facility] [address] [place] [id number] [place] [address] 07484 -7743 Aug, Cervical neuritis M54.12 [facility] [address] [place] [address] 2427 Jul, Other chronic pain G89.29 [facility] [id number] [place] [address] [id number] Jul, Dental caries K02.9 [facility] [address] [place] [id number] [place] [address] 25048- 4017 Jul, Other chronic pain G89.29 [facility] [address] [place] [id number] [place] [address] 11030- 4904 June, Other chronic pain G89.29 [facility] [id number] [place] [address] [id number] May, Dental examination Z01.20 [facility] [address] [place] [id number] [place] [address] 50711- 8338 May, Other chronic pain G89.29 [facility] [address] [place] [id number] [place] [address] 45544- 6706 Apr, Cervical spinal stenosis M48.02 and Drug-induced constipation K59.03 [facility] [address] [place] [id number] [place] [address] 52812- 0397 Apr, [facility] [address] [place] [id number] [place] [address] 29759- 2852 Apr, Other chronic pain G89.29 [facility] [id number] [place] [address] 84940- 3674 Apr, [facility] [address] [place] [id number] [place] [address] 94005- 2542 Mar, [facility] [address] [place] [id number] [place] [address] 421821- 5221 Mar, Other chronic pain G89.29 [facility] [id number] [place] [address] 267120- 7588 Feb, Other chronic pain G89.29 [facility] [address] [place] [id number] [place] [address] 41159- 1936 Jan, Other chronic pain G89.29 [facility] [address] [place] [id number] [place] [address] 58681- 8979 Dec, [facility] [address] 68201- 8096 Dec, Other chronic pain G89.29 [facility] [address] 75231- 1761 Dec, Cervical spinal stenosis M48.02 ; Encounter for immunization Z23 ; Polyneuropathy associated with underlying disease G63 and Erectile dysfunction due to arterial insufficiency N52.01 [facility] [address] 43605- 6486 Nov, [facility] [address] 50147- 0161 Nov, [facility] [address] 00635- 1321 Oct, [facility] [address] [place] [id number] [place] [address] 30438- 7865 Sep, [facility] [address] 54513- 6582 Aug, [facility] [address] 40757- 0945 Jul, Other chronic pain G89.29 [facility] [address] 94655 -9825 Jul, Angioedema, initial encounter T78.3XXA and Dental abscess K04.7 [facility] [address] 63541- 7384 Jul, Leg pain M79.606 [facility] [address] [place] [id number] [place] [address] 53662- 2081 June, Other chronic pain G89.29 and Encounter for immunization Z23 [facility] [address] [place] [address]- 7685 June, [facility] [address] [place] [id number] [place] [address] 17083- 9856 May, Leg pain M79.606 [facility] [address] [place] [id number] [place] [address] 72365- 5799 Apr, Leg pain M79.606 and Cervical spinal stenosis M48.02 [facility] [address] [place] [id number] [place] [address] 84198- 3594 Apr, [facility] [address] [place] [id number] [place] [address] 38608- 5504 Mar, High ankle sprain of left lower extremity S93.432A [place] [address] [place] [id number] [place] [address] 76729- 6390 Mar, [facility] [address] [place] [id number] [place] [address] 72356- 3628 Mar, Left ankle pain M25.572 [facility] [address] [place] [id number] [place] [address] 43695- 7957 Mar, [facility] [address] [place] [id number] [place] [address] 45563- 7979 Mar, [facility] [address] [place] [id number] [place] [address] 31453- 1179 Mar, Leg pain M79.606 [facility] [address] [place] [id number] [place] [address] 46564- 3928 Mar, [facility] [address] [place] [id number] [place] [address] 06783- 0405 Mar, Ankle pain M25.579 ; Cardiac disease I51.9 ; Obesity E66.9 ; Leg pain M79.606 ; HTN (hypertension) I10 ; Ingrowing nail L60.0 ; 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 and Foot pain, left M79.672 [facility] [address] [facility] [id number] [address]- 5441 Feb, [facility] [id number] [place] [address] 26932- 4164 Jan, [facility] [address] [id number] [address]- 1436 Dec, Cervical spinal stenosis M48.02 and Hypertension I10 [facility] [address] [facility] [id number] [place] [address] 46209- 3840 Dec, [facility] [address] [facility] [id number] [place] [address] 63373- 1537 Dec, [facility] [address] [place] [id number] [place] [address] 14937- 9025 Dec, [facility] [address] [place] [id number] [place] [address] 01921- 3511 Nov, [facility] [address] [place] [id number] [place] [address] 41656- 3720 Nov, [facility] [address] [address]- 7783 Oct, [facility] [address] [address]- 9015 Oct, [facility] [address] [address]- 6982 Oct, [facility] [address] [address]- 8137 Oct, [facility] [address] [place] [id number] [address]- 9977 Sep, [facility] [address] [facility] [id number][place] [address]- 8833 Sep, [facility] [address] [address]- 6921 Sep, Spinal stenosis in cervical region 723.0 ; Essential hypertension, benign 401.1 and Erectile dysfunction 607.84 [facility] [address] [place] [id number] [place] [address]- 0280 Sep, [facility] [address] [facility] [id number] [address]- 7706 Aug, [facility] [id number] [place] [address]- 9669 Aug, [facility] [address] [place] [id number] [address]- 8648 Jul, [facility] [address] [place] [id number] [place] [address]- 7537 June, [facility] [address] 6416 June, [facility] [address] [address]- 3401 June, [facility] [address] [address]- 4069 June, [facility] [address] [address]- 9549 June, Spinal stenosis in cervical region 723.0 and Essential hypertension, benign 401.1 [facility] [address] [place] [id number] [address]- 4574 May, [facility] [address] [address]- 9045 May, [facility] [address] [place] [id number] [address]- 8960 Apr, [facility] [address] 4662 Apr, [facility] [address] [place] [id number]- 2190 Apr, [facility] [address] [place] [id number] [address]- 5645 Apr, [facility] [place] [facility] [address] [id number] [place] [address]- 1097 Mar, [facility] [place] [facility] [address] [id number] [place] [address]- 3979 Mar, [facility] [place] [facility] [address] [id number] [place] [address]- 2503 Feb, [facility] [place] [facility] [address] [id number] [place] [address]- 2519 Feb, [facility] [place] [facility] [address] [id number] [place] [address]- 9488 Feb, [facility] [place] [facility] [address] [id number] [place] [address]- 9432 Feb, [facility] [place] [facility] [address] [id number] [place] [address]- 7488 Feb, [facility] [place] [facility] [address] [id number] [place] [address]- 8676 Jan, [facility] [place] [facility] [address] [id number] [place] [address]- 9288 Jan, [facility] [place] [facility] [address] [id number] [place] [address]- 8712 Jan, [facility] [place] [facility] [address] [id number], [place] [address]- 7001 Jan, [facility] [place] [facility] [address] [id number], [place] [address]- 1704 Dec, [facility] [place] [facility] [address] [id number] [place] [address]- 7240 Dec, [facility] [place] [facility] [address] [id number] [address]- 4312 Nov, [facility] [place] [facility] [address] [id number] [place] [address]- 2673 Nov, [facility] [place] [facility] [address] [id number] [place] [address]- 5940 Oct, [facility] [place] [facility] [address] [id number] [place] [address]- 1037 Oct, [facility] [place] [facility] [address] [id number] [place] [address]- 1437 Oct, [facility] [place] [facility] [address] [id number] [place] [address]- 7580 Oct, [facility] [place] [facility] [address] [id number] [place] [address]- 8108 Sep, [facility] [place] [facility] [address] [id number] [place] [address]- 4509 Sep, [facility] [place] [facility] [address] [id number] [place] [address]- 9426 Jul, [facility] [place] [facility] [address] [id number] [place] [address]- 6135 Jul, [facility] [place] [facility] [address] [id number] [place] [address]- 4720 Jul, [facility] [place] [facility] [address] [id number] [place] [address]- 3372 Jul, [facility] [place] [facility] [address] [id number] [place] [address]- 7544 June, [facility] [place] [facility] [address] [id number] [place] [address]- 0481 June, [facility] [place] [facility] [address] [id number] [place] [address]- 5428 June, [facility] [place] [facility] [address] [id number] [place] [address]- 4595 June, [facility] [place] [facility] [address] [id number] [place] [address]- 5635 Mar, [facility] [place] [facility] [address] [id number] [place] [address]- 8991 Mar, [facility] [place] [facility] [address] [id number] [place] [address]- 8441 Mar, [facility] [place] [facility] [address] [id number] [place] [address]- 6361 Mar, [facility] [place] [facility] [address] [id number] [place] [address]- 6077 Mar, [facility] [place] [facility] [address] [id number] [place] [address]- 9669 Feb, [facility] [place] [facility] [address] [id number] [place] [address]- 5862 Feb, [facility] [place] [facility] [address] [id number] [place] [address]- 4269 Feb, [facility] [place] [facility] [address] [id number] [place] [address]- 1730 Feb, [facility] [place] [facility] [address] [id number] [place] [address]- 2478 Feb, [facility] [place] [facility] [address] [id number] [place] [address]- 4432 Feb, [facility] [place] [facility] [address] [id number] [place] [address]- 8709 Feb, [facility] [place] [facility] [address] [id number] [place] [address]- 0157 Feb, [facility] [place] [facility] [address] [id number], [place] [address]- 3517 Feb, [facility] [place] [facility] [address] [id number] [place] [address]- 9733 Feb, [facility] [place] [facility] [address] [id number] [place] [address]- 5239 Nov, [facility] [place] [facility] [address] [id number] [place] [address]- 6407 Nov, [facility] [place] [facility] [address] [id number] [place] [address]- 4326 Nov, [facility] [address] [id number] [place] [address]- 1270 Nov, [facility] [place] [facility] [address] [id number] [place] [address]- 0909 Nov, [facility] [address] [id number] [place] [address]- 7032 Nov, [facility] [place] [facility] [address] [id number] [place] [address]- 4340 Aug, [facility] [address] [id number] [place] [address]- 6213 Aug, [facility] [address] [id number] [place] [address]- 5839 Aug, [facility] [address] [id number] [place] [address]- 0398 Aug, [facility] [address] [id number] [place] [address]- 9598 May, [facility] [address] [id number] [place] [address]- 6490 Apr, [facility] [address] [id number] [place] [address]- 1835 Apr, [facility] [address] [id number] [place] [address]- 7361 Jan, [facility] [place] [facility] [address] [id number] [place] [address]- 4787 Jan, [facility] [place] [facility] [address] [id number] [place] [address]- 0457 Jan, [facility] [place] [facility] [address] [id number] [place] [address]- 6816 Jan, [facility] [place] [facility] [address] [id number] [place] [address]- 6955 Jan, [facility] [place] [facility] [address] [id number] [place] [address]- 1462 17 Jan, 2012 [facility] [place] [facility] [address] [id number] [place] [address]- 1386 17 Jan, 2012 [facility] [place] [facility] [address] [id number] [place] [address] 2546 17 Jan, 2012 [facility] [place] [facility] [address] [id number] [place] [address]- 3436 Jan, [facility] [place] [facility] [address] [id number] [place] [address] 2544 Jan, [facility] [place] [facility] [address] [id number] [place] [address]- 8076 Jan, [facility] [place] [facility] [address] [id number] [place] [address]- 1655 Jan, [facility] [place] [facility] [address] [id number] [place] [address]- 5738 Jan, [facility] [place] [facility] [address] [id number] [place] [address]- 1336 Dec, [facility] [place] [facility] [address] [id number] [place] [address]- 0856 Dec, [facility] [place] [facility] [address] [id number] [place] [address]- 6560 Dec, [facility] [place] [facility] [address] [id number] [place] [address]- 6553 Sep, [facility] [place] [facility] [address] [id number] [place] [address]- 4339 Sep, [facility] [place] [facility] [address] [id number] [place] [address]- 5746 Sep, [facility] [place] [facility] [address] [id number] [place] [address]- 5426 Aug, [facility] [place] [facility] [address] [id number] [place] [address]- 8564 Aug, [facility] [place] [facility] [address] [id number] [place] [address] Aug, [facility] [place] [facility] [address] [id number] [place] [address] June, [facility] [place] [facility] [address] [id number] [place] [address] Apr, [facility] [place] [facility] [address] [id number] [place] [address] Apr, [facility] [place] [facility] [address] [id number] [place] [address] Mar, [facility] [place] [facility] [address] [id number] [place] [address] Feb, [facility] [place] [facility] [address] [id number] [place] [address] Feb, [facility] [place] [facility] [address] [id number] [place] [address] Jan, [facility] [place] [facility] [address] [id number] [place] [address] Jan, [facility] [place] [facility] [address] [id number] [place] [address] Dec, [facility] [place] [facility] [address] [id number], [place] [address] Dec, [facility] [place] [facility] [address] [id number], [place] [address] Dec, [facility] [place] [facility] [address] [id number] [place] [address] Nov, [facility] [place] [facility] [address] [id number] [place] [address] Sep, [facility] [place] [facility] [address] [id number] [place] [address] Apr, [facility] [place] [facility] [address] [id number] [address] 16 Mar, 2010 [facility] [id number] [address] Jan, [facility] [id number] [address] Dec, [facility] [id number] [address] Nov, [facility] [id number] [address] Sep, [facility] [id number] [address] Jul, [facility] [id number] [address] Feb, [facility] [id number], [place] [address] Jan, IMMUNIZATIONS No Known Immunizations SOCIAL HISTORY Never Assessed REASON FOR VISIT Lab (walk-in) PLAN OF CARE VITAL SIGNS MEDICATIONS No Known Medications RESULTS No Results PROCEDURES Procedure Date Ordered Result Body Site LAB NOT BILLED BY [facility] Feb 17, 2017 DASH, ROUTINE* Feb 17, 2017 INSTRUCTIONS MEDICATIONS ADMINISTERED No Known Medications MEDICAL (GENERAL) HISTORY Type Description Date Medical History spinal compression fracture Medical History cardiovascular disease Medical History stent placed 03-07-15 Surgical History cardiac stent 03-07-15 Surgical History Cardiac stent 11/2015 Hospitalization History [place] with stent placement 03-06-15 Hospitalization History Cardiac Stent Collapsed/Heart attack 11/2015
--- OUTSIDE RECORDS SUMMARY | 2018-01-15 21:20 | XMS REPORT ---
Author Author ROB RAMIREZ Organization [facility] Address [address] [place] [address] Care Team Providers Care Industrial Rehabilitation Consultant Name Role Phone ROB RAMIREZ Unavailable PROBLEMS Type Condition ICD9-CM Code SXF04-LO Code Onset Dates Condition Status SNOMED Code Problem Ingrowing nail L60.0 Active 983233840 Problem 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 Active 025208328 Problem Cardiac disease I51.9 Active 44770415 Problem Cervical spinal stenosis M48.02 Active 25741969 Problem Other chronic pain G89.29 Active 72479753 Problem Polyneuropathy associated with underlying disease G63 Active 730689324 Problem Obesity E66.9 Active 898363787 Problem Foot pain, left M79.672 Active 75640869 Problem Erectile dysfunction due to arterial insufficiency N52.01 Active 421328835 Problem HTN (hypertension) I10 Active 39113752 ALLERGIES No Information SOCIAL HISTORY Never Assessed PLAN OF CARE VITAL SIGNS MEDICATIONS Medication Instructions Dosage Frequency Start Date End Date Duration Status Baclofen 20 MG Orally 4 times a day 1 tablet with food or milk 6h 30 Active RESULTS No Results PROCEDURES No Known procedures IMMUNIZATIONS No Known Immunizations MEDICAL (GENERAL) HISTORY Type Description Date Medical History spinal compression fracture Medical History cardiovascular disease Medical History stent placed 03-07-15 Surgical History cardiac stent 03-07-15 Surgical History Cardiac stent 11/2015 Hospitalization History [place] with stent placement 03-06-15 Hospitalization History Cardiac Stent Collapsed/Heart attack 11/2015
--- OUTSIDE RECORDS SUMMARY | 2018-01-15 21:21 | XMS REPORT ---
Author Author ROB RAMIREZ Organization [facility] Address [address] [place] [address] Care Team Providers Care Green Building Design Specialist Name Role Phone ROB RAMIREZ Unavailable PROBLEMS Type Condition ICD9-CM Code YFV23-UP Code Onset Dates Condition Status SNOMED Code Problem Polyneuropathy associated with underlying disease G63 Active 705627346 Problem Other chronic pain G89.29 Active 75093020 Problem Erectile dysfunction due to arterial insufficiency N52.01 Active 823669029 Problem Right leg weakness R29.898 Active [id number] Problem Morbid (severe) obesity due to excess calories E66.01 Active 693816745 Problem Morbid obesity E66.01 Active 819345140 Problem Recurrent right knee instability M23.51 Active 323302436 Problem Coronary artery disease involving [place] coronary artery of [place] 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 Active 4070326797102 Problem Mixed hyperlipidemia E78.2 Active 855402341 Problem Cervical spinal stenosis M48.02 Active 78000724 Problem Obesity E66.9 Active 566122521 Problem HTN (hypertension) I10 Active 13166614 Problem Ingrowing nail L60.0 Active 800873902 Problem Cardiac disease I51.9 Active 81997876 Problem Foot pain, left M79.672 Active 38881141 Problem 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 Active [id number] ALLERGIES No Information ENCOUNTERS Encounter Location Date Diagnosis [facility] [address] [facility] [id number] [place] [address] 05 Jul, 2017 Medicare annual wellness visit, [...] adult Z68.43 and Encounter for immunization Z23 [place] [address] [address] Jul, Cervical spinal stenosis M48.02 ; HTN (hypertension) I10 ; Coronary artery disease involving [place] coronary artery of [place] 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 and Right leg weakness R29.898 [place] [address] [address]- [address] June, Cervical spinal stenosis M48.02 [place] [address] [address]- 2818 June, Cervical spinal stenosis M48.02 [place] [address] 64179- 0443 May, Cervical spinal stenosis M48.02 [place] [address] 38882- 3357 Apr, Cervical spinal stenosis M48.02 [facility] [address] [address] Mar, Neck pain on right side M54.2 and BMI 50.0-59.9, adult Z68.43 [place] [address] [address]- [address] 06 Mar, 2017 Cervical spinal stenosis M48.02 [place] [address] 19429- 6793 Feb, Cervical spinal stenosis M48.02 [place] [address] [address]387- 0089 Feb, [facility] [address] [address]- 5683 Feb, Morbid (severe) obesity due to excess calories E66.01 and Coronary artery disease involving [place] coronary artery of [place] 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 [facility] [address] 35686- 7342 Feb, Mixed hyperlipidemia E78.2 and HTN (hypertension) I10 [facility] [address] [place] [id number] [place] [address] 83447- 7286 Feb, Cervical spinal stenosis M48.02 ; HTN (hypertension) I10 ; Mixed hyperlipidemia E78.2 ; Recurrent right knee instability M23.51 and Morbid obesity E66.01 [facility] [address] [place] [id number] [place] [address]45- 3228 Jan, Other chronic pain G89.29 [facility] [address] [place] [id number] [place] [address] 78257- 1089 Dec, Other chronic pain G89.29 [facility] [address] 63980- 2716 Nov, Other chronic pain G89.29 [place] [address] [place] [id number] [place] [address] 41113- 0068 Oct, Other chronic pain G89.29 [facility] [address] [place] [id number] [place] [address] 87949- 1481 Sep, Other chronic pain G89.29 [facility] [address] 19387- 2643 Sep, Other chronic pain G89.29 [place] [address] [place] [id number] [place] [address] 41064- 0390 Sep, Tenderness of left calf M79.662 and Cervical spinal stenosis M48.02 [facility] [address] [place] [id number] [place] [address] 40281- 9020 Aug, Other chronic pain G89.29 [facility] [address] [place] [id number] [place] [address] 13691- 8381 Aug, Cervical radiculopathy M54.12 [facility] [address] [place] [id number] [place] [address] 81693 -4625 Aug, Cervical neuritis M54.12 [facility] [address] [place] [address]- 0088 Jul, Other chronic pain G89.29 [facility] [id number] [place] [address] [id number] Jul, Dental caries K02.9 [facility] [address] [place] [id number] [place] [address] 63733- 9062 Jul, Other chronic pain G89.29 [facility] [address] [place] [id number] [place] [address] 83207- 0450 June, Other chronic pain G89.29 [facility] [id number] [place] [address] [id number] May, Dental examination Z01.20 [facility] [address] [place] [id number] [place] [address] 06192- 6502 May, Other chronic pain G89.29 [facility] [address] [place] [id number] [place] [address] 61221- 3705 Apr, Cervical spinal stenosis M48.02 and Drug-induced constipation K59.03 [facility] [address] [place] [id number] [place] [address] 99853- 8018 Apr, [facility] [address] [place] [id number] [place] [address] 08428- 2979 Apr, Other chronic pain G89.29 [facility] [id number] [place] [address] 74129- 7969 Apr, [facility] [address] [place] [id number] [place] [address] 66010- 2543 Mar, [facility] [address] [place] [id number] [place] [address] 823963- 6848 Mar, Other chronic pain G89.29 [facility] [id number] [place] [address] 803008- 1617 Feb, Other chronic pain G89.29 [facility] [address] [place] [id number] [place] [address] 44080- 7509 Jan, Other chronic pain G89.29 [facility] [address] [place] [id number] [place] [address] 66753- 4494 Dec, [facility] [address] 70748- 2358 Dec, Other chronic pain G89.29 [facility] [address] 91418- 3617 Dec, Cervical spinal stenosis M48.02 ; Encounter for immunization Z23 ; Polyneuropathy associated with underlying disease G63 and Erectile dysfunction due to arterial insufficiency N52.01 [facility] [address] 83305- 7831 Nov, [facility] [address] 14747- 4702 Nov, [facility] [address] 24860- 9173 Oct, [facility] [address] [place] [id number] [place] [address] 69178- 8876 Sep, [facility] [address] 80661- 1372 Aug, [facility] [address] 86077- 1511 Jul, Other chronic pain G89.29 [facility] [address] 63053 -9070 Jul, Angioedema, initial encounter T78.3XXA and Dental abscess K04.7 [facility] [address] 39728- 3695 Jul, Leg pain M79.606 [facility] [address] [place] [id number] [place] [address] 00039- 6930 June, Other chronic pain G89.29 and Encounter for immunization Z23 [facility] [address] [place] [address]- 3063 June, [facility] [address] [place] [id number] [place] [address] 48585- 8879 May, Leg pain M79.606 [facility] [address] [place] [id number] [place] [address] 16224- 2748 Apr, Leg pain M79.606 and Cervical spinal stenosis M48.02 [facility] [address] [place] [id number] [place] [address] 55454- 8868 Apr, [facility] [address] [place] [id number] [place] [address] 89043- 3707 Mar, High ankle sprain of left lower extremity S93.432A [place] [address] [place] [id number] [place] [address] 67173- 1873 Mar, [facility] [address] [place] [id number] [place] [address] 94841- 4493 Mar, Left ankle pain M25.572 [facility] [address] [place] [id number] [place] [address] 52555- 2117 Mar, [facility] [address] [place] [id number] [place] [address] 65293- 7578 Mar, [facility] [address] [place] [id number] [place] [address] 09871- 7020 Mar, Leg pain M79.606 [facility] [address] [place] [id number] [place] [address] 57440- 3196 Mar, [facility] [address] [place] [id number] [place] [address] 72665- 0146 Mar, Ankle pain M25.579 ; Cardiac disease I51.9 ; Obesity E66.9 ; Leg pain M79.606 ; HTN (hypertension) I10 ; Ingrowing nail L60.0 ; 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 and Foot pain, left M79.672 [facility] [address] [facility] [id number] [address]- 0581 Feb, [facility] [id number] [place] [address] 87390- 0185 Jan, [facility] [address] [place] [id number] [address]- 5376 Dec, Cervical spinal stenosis M48.02 and Hypertension I10 [facility] [address] [facility] [id number] [place] [address] 25662- 8666 Dec, [facility] [address] [facility] [id number] [place] [address] 29689- 8997 Dec, [facility] [address] [place] [id number] [place] [address] 07089- 1620 Dec, [facility] [address] [place] [id number] [place] [address] 07988- 5492 Nov, [facility] [address] [place] [id number] [place] [address] 05125- 3964 Nov, [facility] [address] [address]- 4699 Oct, [facility] [address] [address]- 1821 Oct, [facility] [address] [address]- 0132 Oct, [facility] [address] [address]- 1039 Oct, [facility] [address] [place] [id number] [address]- 2832 Sep, [facility] [address] [facility] [id number] [address]- 0848 Sep, [facility] [address] [address]- 7970 Sep, Spinal stenosis in cervical region 723.0 ; Essential hypertension, benign 401.1 and Erectile dysfunction 607.84 [facility] [address] [place] [id number] [place] [address]- 0523 Sep, [facility] [address] [facility] [id number] [address]- 5896 Aug, [facility] [address] [place] [address]- 8487 Aug, [facility] [address] [place] [id number] [address]- 2020 Jul, [facility] [address] [place] [id number] [place] [address]- 2364 June, [facility] [address]- 6125 June, [facility] [address] [address]- 2084 June, [facility] [address] [address]- 1812 June, [facility] [address] [address]- 4015 June, Spinal stenosis in cervical region 723.0 and Essential hypertension, benign 401.1 [facility] [address] [place] [id number] [address]- 8370 May, [facility] [address] [address]- 3548 May, [facility] [address] [place] [id number] [address]- 2282 Apr, [facility] [address] 9525 Apr, [facility] [address] [place] [id number] 5547 Apr, [facility] [address] [place] [id number] [address]- 4599 Apr, [facility] [place] [facility] [address] [id number] [place] [address]- 0733 Mar, [facility] [place] [facility] [address] [id number] [place] [address]- 1540 Mar, [facility] [place] [facility] [address] [id number] [place] [address]- 7132 Feb, [facility] [place] [facility] [address] [id number] [place] [address]- 0606 Feb, [facility] [place] [facility] [address] [id number] [place] [address]- 9682 Feb, [facility] [place] [facility] [address] [id number] [place] [address]- 0306 Feb, [facility] [place] [facility] [address] [id number] [place] [address]- 9770 Feb, [facility] [place] [facility] [address] [id number] [place] [address]- 2116 Jan, [facility] [place] [facility] [address] [id number] [place] [address]- 6292 Jan, [facility] [place] [facility] [address] [id number] [place] [address]- 7309 Jan, [facility] [place] [facility] [address] [id number] [address]- 7102 Jan, [facility] [place] [facility] [address] [id number] [address]- 3448 Dec, [facility] [place] [facility] [address] [id number] [place] [address]- 7079 Dec, [facility] [place] [facility] [address] [id number] [address]- 9204 Nov, [facility] [place] [facility] [address] [id number] [place] [address]- 7204 Nov, [facility] [place] [facility] [address] [id number] [place] [address]- 7965 Oct, [facility] [place] [facility] [address] [id number] [place] [address]- 3635 Oct, [facility] [place] [facility] [address] [id number] [place] [address]- 7031 Oct, [facility] [place] [facility] [address] [id number] [place] [address]- 3622 Oct, [facility] [place] [facility] [address] [id number] [place] [address]- 9869 Sep, [facility] [place] [facility] [address] [id number] [place] [address]- 1835 Sep, [facility] [place] [facility] [address] [id number] [place] [address]- 4377 Jul, [facility] [place] [facility] [address] [id number] [place] [address]- 5031 Jul, [facility] [place] [facility] [address] [id number] [place] [address]- 0231 Jul, [facility] [place] [facility] [address] [id number] [place] [address]- 1622 Jul, [facility] [place] [facility] [address] [id number] [place] [address]- 7959 June, [facility] [place] [facility] [address] [id number] [place] [address]- 6239 June, [facility] [place] [facility] [address] [id number] [place] [address]- 1963 June, [facility] [place] [facility] [address] [id number] [place] [address]- 6117 June, [facility] [place] [facility] [address] [id number] [place] [address]- 0602 Mar, [facility] [place] [facility] [address] [id number] [place] [address]- 6349 Mar, [facility] [place] [facility] [address] [id number] [place] [address]- 5194 Mar, [facility] [place] [facility] [address] [id number] [place] [address]- 3468 Mar, [facility] [place] [facility] [address] [id number] [place] [address]- 7741 Mar, [facility] [place] [facility] [address] [id number] [place] [address]- 3091 Feb, [facility] [place] [facility] [address] [id number] [place] [address]- 6449 Feb, [facility] [place] [facility] [address] [id number] [place] [address]- 5044 Feb, [facility] [place] [facility] [address] [id number] [place] [address]- 7950 Feb, [facility] [place] [facility] [address] [id number] [place] [address]- 1169 Feb, [facility] [place] [facility] [address] [id number] [place] [address]- 0717 Feb, [facility] [place] [facility] [address] [id number] [place] [address]- 9601 Feb, [facility] [place] [facility] [address] [id number] [place] [address]- 3478 Feb, [facility] [place] [facility] [address] [id number] [address]- 8386 Feb, [facility] [place] [facility] [address] [id number] [place] [address]- 6274 Feb, [facility] [place] [facility] [address] [id number] [place] [address]- 7644 Nov, [facility] [place] [facility] [address] [id number] [place] [address]- 0190 Nov, [facility] [place] [facility] [address] [id number] [place] [address]- 0698 Nov, [facility] [address] [id number] [place] [address]- 8044 Nov, [facility] [place] [facility] [address] [id number] [place] [address]- 2574 Nov, [facility] [address] [id number] [place] [address]- 7043 Nov, [facility] [place] [facility] [address] [id number] [place] [address]- 4803 Aug, [facility] [address] [id number] [place] [address]- 5020 Aug, [facility] [address] [id number] [place] [address]- 8209 Aug, [facility] [address] [id number] [place] [address]- 1011 Aug, [facility] [address] [id number] [place] [address]- 9690 May, [facility] [address] [id number] [place] [address]- 6428 Apr, [facility] [address] [id number] [place] [address]- 0733 Apr, [facility] [address] [id number] [place] [address]- 5278 Jan, [facility] [place] [facility] [address] [id number] [place] [address]- 9253 Jan, [facility] [place] [facility] [address] [id number] [place] [address]- 7871 Jan, [facility] [place] [facility] [address] [id number] [place] [address]- 9827 Jan, [facility] [place] [facility] [address] [id number] [place] [address]- 1217 Jan, [facility] [place] [facility] [address] [id number] [place] [address]- 6766 17 Jan, 2012 [facility] [place] [facility] [address] [id number] [place] [address]- 6436 17 Jan, 2012 [facility] [place] [facility] [address] [id number] [place] [address] 2546 17 Jan, 2012 [facility] [place] [facility] [address] [id number] [place] [address]- 8546 Jan, [facility] [place] [facility] [address] [id number] [place] [address] 2545 Jan, [facility] [place] [facility] [address] [id number] [place] [address]- 4996 Jan, [facility] [place] [facility] [address] [id number] [place] [address]- 9502 Jan, [facility] [place] [facility] [address] [id number] [place] [address]- 9774 Jan, [facility] [place] [facility] [address] [id number] [place] [address]- 1120 Dec, [facility] [place] [facility] [address] [id number] [place] [address]- 7881 Dec, [facility] [place] [facility] [address] [id number] [place] [address]- 2443 Dec, [facility] [place] [facility] [address] [id number] [place] [address]- 2021 Sep, [facility] [place] [facility] [address] [id number] [place] [address]- 0774 Sep, [facility] [place] [facility] [address] [id number] [place] [address]- 9716 Sep, [facility] [place] [facility] [address] [id number] [place] [address]- 6836 Aug, [facility] [place] [facility] [address] [id number] [place] [address]- 8127 Aug, [facility] [place] [facility] [address] [id number] [place] [address]- 8137 Aug, [facility] [place] [facility] [address] [id number] [place] [address]- 4398 June, [facility] [place] [facility] [address] [id number] [place] [address]- 9217 Apr, [facility] [place] [facility] [address] [id number] [place] [address]- 6096 Apr, [facility] [place] [facility] [address] [id number] [place] [address]- 8309 Mar, [facility] [place] [facility] [address] [id number] [place] [address]- 9711 Feb, [facility] [place] [facility] [address] [id number] [place] [address]- 8161 Feb, [facility] [place] [facility] [address] [id number] [place] [address] Jan, [facility] [place] [facility] [address] [id number] [place] [address] Jan, [facility] [place] [facility] [address] [id number] [place] [address] Dec, [facility] [place] [facility] [address] [id number] [address] Dec, [facility] [place] [facility] [address] [id number] [address] Dec, [facility] [place] [facility] [address] [id number] [place] [address] Nov, [facility] [place] [facility] [address] [id number] [place] [address] Sep, [facility] [place] [facility] [address] [id number] [place] [address] Apr, [facility] [place] [facility] [address] [id number] [address] Mar, 2010 [facility] [id number] [address] Jan, [facility] [id number] [address] Dec, [facility] [id number] [address] Nov, [facility] [id number] [address] Sep, [facility] [id number] [address] Jul, [facility] [id number] [address] Feb, [facility] [id number] [address] Jan, IMMUNIZATIONS No Known Immunizations SOCIAL HISTORY Never Assessed REASON FOR VISIT PLAN OF CARE VITAL SIGNS MEDICATIONS Medication Instructions Dosage Frequency Start Date End Date Duration Status Metoprolol Tartrate 25 MG Orally Twice a day 1 tablet with food 12h Active RESULTS No Results PROCEDURES No Known procedures INSTRUCTIONS MEDICATIONS ADMINISTERED No Known Medications MEDICAL (GENERAL) HISTORY Type Description Date Medical History spinal compression fracture Medical History cardiovascular disease Medical History stent placed 03-07-15 Surgical History cardiac stent 03-07-15 Surgical History Cardiac stent 11/2015 Hospitalization History [place] with stent placement 03-06-15 Hospitalization History Cardiac Stent Collapsed/Heart attack 11/2015
--- OUTSIDE RECORDS SUMMARY | 2018-01-15 21:22 | XMS REPORT ---
Author Author ROB RAMIREZ Organization [facility] Address [address] [place] [address] Care Team Providers [employer]ge [employer] Supervisor Name Role Phone ROB RAMIREZ Unavailable PROBLEMS Type Condition ICD9-CM Code NNM66-SF Code Onset Dates Condition Status SNOMED Code Problem Polyneuropathy associated with underlying disease G63 Active 994844469 Problem Other chronic pain G89.29 Active 36206827 Problem Erectile dysfunction due to arterial insufficiency N52.01 Active 444032391 Problem Right leg weakness R29.898 Active [id number] Problem Morbid (severe) obesity due to excess calories E66.01 Active 081562086 Problem Morbid obesity E66.01 Active 715210458 Problem Recurrent right knee instability M23.51 Active 034602648 Problem Coronary artery disease involving belkofski coronary artery of belkofski 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 Active 3023742494828 Problem Mixed hyperlipidemia E78.2 Active 166079629 Problem Cervical spinal stenosis M48.02 Active 84583742 Problem Obesity E66.9 Active 788867690 Problem HTN (hypertension) I10 Active 15488498 Problem Ingrowing nail L60.0 Active 070308053 Problem Cardiac disease I51.9 Active 39747505 Problem Foot pain, left M79.672 Active 32223186 Problem 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 Active [id number] ALLERGIES No Information ENCOUNTERS Encounter Location Date Diagnosis [facility] [address] [facility] [id number] [place] [address] 05 Jul, 2017 Medicare annual wellness visit, initial Z00.00 ; Morbid ( severe) obesity due to excess calories E66.01 ; Coronary artery disease involving belkofski coronary artery of belkofski 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 ; 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 ; Polyneuropathy associated with underlying disease G63 ; HTN (hypertension) I10 ; Mixed hyperlipidemia E78.2 ; BMI 50.0-59.9, adult Z68.43 and Encounter for immunization Z23 [place] [address] [address] Jul, Cervical spinal stenosis M48.02 ; HTN (hypertension) I10 ; Coronary artery disease involving belkofski coronary artery of belkofski 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 and Right leg weakness R29.898 [place] [address] [address] June, Cervical spinal stenosis M48.02 [place] [address] [address]- 3640 June, Cervical spinal stenosis M48.02 [place] [address] [address]- 1627 May, Cervical spinal stenosis M48.02 [place] [address] [address]- 0925 Apr, Cervical spinal stenosis M48.02 [facility] [address] [address] Mar, Neck pain on right side M54.2 and BMI 50.0-59.9, adult Z68.43 [place] [address] [address]- [address] 06 Mar, 2017 Cervical spinal stenosis M48.02 [place] [address] [address]- 1059 Feb, Cervical spinal stenosis M48.02 [place] [address] 40394- 2745 Feb, [facility] [address] [address]- 59[address] Feb, Morbid (severe) obesity due to excess calories E66.01 and Coronary artery disease involving belkofski coronary artery of belkofski 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 [facility] [address] [address]- 6568 Feb, Mixed hyperlipidemia E78.2 and HTN (hypertension) I10 [facility] [address] [place] [id number] [place] [address]- 7984 Feb, Cervical spinal stenosis M48.02 ; HTN (hypertension) I10 ; Mixed hyperlipidemia E78.2 ; Recurrent right knee instability M23.51 and Morbid obesity E66.01 [facility] [address] [place] [id number] [place] [address] 89228- 9167 Jan, Other chronic pain G89.29 [facility] [address] [place] [id number] [place] [address] 27377- 7908 Dec, Other chronic pain G89.29 [facility] [address] [address]80- 0936 Nov, Other chronic pain G89.29 [place] [address] [place] [id number] [place] [address] 19843- 6193 Oct, Other chronic pain G89.29 [facility] [address] [place] [id number] [place] [address] 49712- 5500 Sep, Other chronic pain G89.29 [facility] [address] 45450- 5156 Sep, Other chronic pain G89.29 [place] [address] [place] [id number] [place] [address] 78283- 5455 Sep, Tenderness of left calf M79.662 and Cervical spinal stenosis M48.02 [facility] [address] [place] [id number] [place] [address] 21930- 2154 Aug, Other chronic pain G89.29 [facility] [address] [place] [id number] [place] [address] 34125- 4903 Aug, Cervical radiculopathy M54.12 [facility] [address] [place] [id number] [place] [address]80 -0450 Aug, Cervical neuritis M54.12 [facility] [address] [place] [address]- [address] Jul, Other chronic pain G89.29 [facility] [id number] [place] [address] [id number] Jul, Dental caries K02.9 [facility] [address] [place] [id number] [place] [address] 63752- 8268 Jul, Other chronic pain G89.29 [facility] [address] [place] [id number] [place] [address] 62435- 2822 June, Other chronic pain G89.29 [facility] [id number] [place] [address] [id number] May, Dental examination Z01.20 [facility] [address] [place] [id number] [place] [address] 59937- 6988 May, Other chronic pain G89.29 [facility] [address] [place] [id number] [place] [address] 49885- 7543 Apr, Cervical spinal stenosis M48.02 and Drug-induced constipation K59.03 [facility] [address] [place] [id number] [place] [address] 22142- 8602 Apr, [facility] [address] [place] [id number] [place] [address] 23630- 8033 Apr, Other chronic pain G89.29 [facility] [address] [place] [address] 53576- 9536 Apr, [facility] [address] [place] [id number] [place] [address] 06847- 2549 Mar, [facility] [address] [place] [id number] [place] [address] 325264- 4648 Mar, Other chronic pain G89.29 [facility] [address] [place] [address] 372164- 7770 Feb, Other chronic pain G89.29 [facility] [address] [place] [id number] [place] [address] 09048- 2447 Jan, Other chronic pain G89.29 [facility] [address] [place] [id number] [place] [address] 91132- 3538 Dec, [facility] [address] 56389- 8730 Dec, Other chronic pain G89.29 [facility] [address] 02898- 6281 Dec, Cervical spinal stenosis M48.02 ; Encounter for immunization Z23 ; Polyneuropathy associated with underlying disease G63 and Erectile dysfunction due to arterial insufficiency N52.01 [facility] [address] 00102- 3050 Nov, [facility] [address] 83864- 2685 Nov, [facility] [address] 34082- 4600 Oct, [facility] [address] [place] [id number] [place] [address] 17912- 8946 Sep, [facility] [address] 29031- 0296 Aug, [facility] [address] 42447- 2766 Jul, Other chronic pain G89.29 [facility] [address] 32066 -7831 Jul, Angioedema, initial encounter T78.3XXA and Dental abscess K04.7 [facility] [address] 35565- 5600 Jul, Leg pain M79.606 [facility] [address] [place] [id number] [place] [address] 48866- 9800 June, Other chronic pain G89.29 and Encounter for immunization Z23 [facility] [address] [place] [address]- 4094 June, [facility] [address] [place] [id number] [place] [address] 23694- 8948 May, Leg pain M79.606 [facility] [address] [place] [id number] [place] [address] 52026- 5096 Apr, Leg pain M79.606 and Cervical spinal stenosis M48.02 [facility] [address] [place] [id number] [place] [address] 44161- 0492 Apr, [facility] [address] [place] [id number] [place] [address] 41742- 4177 Mar, High ankle sprain of left lower extremity S93.432A [place] [address] [place] [id number] [place] [address] 78780- 3386 Mar, [facility] [address] [place] [id number] [place] [address] 62142- 2983 Mar, Left ankle pain M25.572 [facility] [address] [place] [id number] [place] [address] 79517- 8330 Mar, [facility] [address] [place] [id number] [place] [address] 48676- 0963 Mar, [facility] [address] [place] [id number] [place] [address] 20634- 8904 Mar, Leg pain M79.606 [facility] [address] [place] [id number] [place] [address] 36750- 2492 Mar, [facility] [address] [place] [id number] [place] [address] 46619- 0050 Mar, Ankle pain M25.579 ; Cardiac disease I51.9 ; Obesity E66.9 ; Leg pain M79.606 ; HTN (hypertension) I10 ; Ingrowing nail L60.0 ; 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 and Foot pain, left M79.672 [facility] [address] [facility] [id number] [address]- 9347 Feb, [facility] [address] [place] [address] 65343- 4303 Jan, [facility] [address] [id number] [address]- 1221 Dec, Cervical spinal stenosis M48.02 and Hypertension I10 [facility] [address] [facility] [id number] [place] [address] 76372- 2241 Dec, [facility] [address] [facility] [id number] [place] [address] 50814- 9653 Dec, [facility] [address] [place] [id number] [place] [address] 49154- 5119 Dec, [facility] [address] [place] [id number] [place] [address] 92953- 9227 Nov, [facility] [address] [place] [id number] [place] [address] 46444- 8801 Nov, [facility] [address] [address]- 8153 Oct, [facility] [address] [address]- 9779 Oct, [facility] [address] [address]- 1052 Oct, [facility] [address] [place] [address]- 4696 Oct, [facility] [address] [id number] [address]- 5965 Sep, [facility] [address] [facility] [id number], [place] [address]- 1177 Sep, [facility] [address] [place] [address]- 9685 Sep, Spinal stenosis in cervical region 723.0 ; Essential hypertension, benign 401.1 and Erectile dysfunction 607.84 [facility] [address] [place] [id number] [address]- 3178 Sep, [facility] [address] [facility] [id number], [place] [address]- 8716 Aug, [facility] [id number] [place] [address]- 8403 Aug, [facility] [address] [id number] [address]- 6325 Jul, [facility] [address] [place] [id number] [address]- 4996 June, [facility] [address]- 6057 June, [facility] [address], [place] [address]- 4637 June, [facility] [address], [place] [address]- 3221 June, [facility] [address], [place] [address]- 1120 June, Spinal stenosis in cervical region 723.0 and Essential hypertension, benign 401.1 [facility] [address] [id number] [address]- 1115 May, [facility] [address], [place] [address]- 7878 May, [facility] [address] [id number], [place] [address]- 6172 Apr, [facility] [address] 5072 Apr, [facility] [address] [id number] 5428 Apr, [facility] [address] [id number], [place] [address]- 2851 Apr, [facility] [place] [facility] [address] [id number] [place] [address]- 8453 Mar, [facility] [place] [facility] [address] [id number] [place] [address]- 6089 Mar, [facility] [place] [facility] [address] [id number] [place] [address]- 1316 Feb, [facility] [place] [facility] [address] [id number] [place] [address]- 7602 Feb, [facility] [place] [facility] [address] [id number] [place] [address]- 2008 Feb, [facility] [place] [facility] [address] [id number] [place] [address]- 9244 Feb, [facility] [place] [facility] [address] [id number] [place] [address]- 6908 Feb, [facility] [place] [facility] [address] [id number] [place] [address]- 4420 Jan, [facility] [place] [facility] [address] [id number] [place] [address]- 2916 Jan, [facility] [place] [facility] [address] [id number] [place] [address]- 3153 Jan, [facility] [place] [facility] [address] [id number], [place] [address]- 5358 Jan, [facility] [place] [facility] [address] [id number], [place] [address]- 7676 Dec, [facility] [place] [facility] [address] [id number] [place] [address]- 9009 Dec, [facility] [place] [facility] [address] [id number], [place] [address]- 6165 Nov, [facility] [place] [facility] [address] [id number] [place] [address]- 4587 Nov, [facility] [place] [facility] [address] [id number] [place] [address]- 3611 Oct, [facility] [place] [facility] [address] [id number] [place] [address]- 9658 Oct, [facility] [place] [facility] [address] [id number] [place] [address]- 4176 Oct, [facility] [place] [facility] [address] [id number] [place] [address]- 1065 Oct, [facility] [place] [facility] [address] [id number] [place] [address]- 9349 Sep, [facility] [place] [facility] [address] [id number] [place] [address]- 3291 Sep, [facility] [place] [facility] [address] [id number] [place] [address]- 3118 Jul, [facility] [place] [facility] [address] [id number] [place] [address]- 1575 Jul, [facility] [place] [facility] [address] [id number] [place] [address]- 9735 Jul, [facility] [place] [facility] [address] [id number] [place] [address]- 6014 Jul, [facility] [place] [facility] [address] [id number] [place] [address]- 9414 June, [facility] [place] [facility] [address] [id number] [place] [address]- 6852 June, [facility] [place] [facility] [address] [id number] [place] [address]- 4495 June, [facility] [place] [facility] [address] [id number] [place] [address]- 5480 June, [facility] [place] [facility] [address] [id number] [place] [address]- 4801 Mar, [facility] [place] [facility] [address] [id number] [place] [address]- 7262 Mar, [facility] [place] [facility] [address] [id number] [place] [address]- 6502 Mar, [facility] [place] [facility] [address] [id number] [place] [address]- 2581 Mar, [facility] [place] [facility] [address] [id number] [place] [address]- 1706 Mar, [facility] [place] [facility] [address] [id number] [place] [address]- 7806 Feb, [facility] [place] [facility] [address] [id number] [place] [address]- 9290 Feb, [facility] [place] [facility] [address] [id number] [place] [address]- 4127 Feb, [facility] [place] [facility] [address] [id number] [place] [address]- 1941 Feb, [facility] [place] [facility] [address] [id number] [place] [address]- 3735 Feb, [facility] [place] [facility] [address] [id number] [place] [address]- 5777 Feb, [facility] [place] [facility] [address] [id number] [place] [address]- 7173 Feb, [facility] [place] [facility] [address] [id number] [place] [address]- 8362 Feb, [facility] [place] [facility] [address] [id number], [place] [address]- 3519 Feb, [facility] [place] [facility] [address] [id number] [place] [address]- 8842 Feb, [facility] [place] [facility] [address] [id number] [place] [address]- 7390 Nov, [facility] [place] [facility] [address] [id number] [place] [address]- 5945 Nov, [facility] [place] [facility] [address] [id number] [place] [address]- 9358 Nov, [facility] [address] [id number] [place] [address]- 8515 Nov, [facility] [place] [facility] [address] [id number] [place] [address]- 6804 Nov, [facility] [address] [id number] [place] [address]- 8489 Nov, [facility] [place] [facility] [address] [id number] [place] [address]- 1539 Aug, [facility] [address] [id number] [place] [address]- 2092 Aug, [facility] [address] [id number] [place] [address]- 1954 Aug, [facility] [address] [id number] [place] [address]- 2636 Aug, [facility] [address] [id number] [place] [address]- 6392 May, [facility] [address] [id number] [place] [address]- 7249 Apr, [facility] [address] [id number] [place] [address]- 2886 Apr, [facility] [address] [id number] [place] [address]- 8745 Jan, [facility] [place] [facility] [address] [id number] [place] [address]- 4570 Jan, [facility] [place] [facility] [address] [id number] [place] [address]- 6194 Jan, [facility] [place] [facility] [address] [id number] [place] [address]- 3145 Jan, [facility] [place] [facility] [address] [id number] [place] [address]- 7401 Jan, [facility] [place] [facility] [address] [id number] [place] [address]- 0437 17 Jan, 2012 [facility] [place] [facility] [address] [id number] [place] [address]- 8736 17 Jan, 2012 [facility] [place] [facility] [address] [id number] [place] [address] 2546 17 Jan, 2012 [facility] [place] [facility] [address] [id number] [place] [address]- 6536 Jan, [facility] [place] [facility] [address] [id number] [place] [address] 2549 Jan, [facility] [place] [facility] [address] [id number] [place] [address]- 1326 Jan, [facility] [place] [facility] [address] [id number] [place] [address]- 0418 Jan, [facility] [place] [facility] [address] [id number] [place] [address]- 9582 Jan, [facility] [place] [facility] [address] [id number] [place] [address]- 6373 Dec, [facility] [place] [facility] [address] [id number] [place] [address]- 5645 Dec, [facility] [place] [facility] [address] [id number] [place] [address]- 9849 Dec, [facility] [place] [facility] [address] [id number] [place] [address]- 3242 Sep, [facility] [place] [facility] [address] [id number] [place] [address]- 7952 Sep, [facility] [place] [facility] [address] [id number] [place] [address]- 4356 Sep, [facility] [place] [facility] [address] [id number] [place] [address] Aug, [facility] [place] [facility] [address] [id number] [place] [address] Aug, [facility] [place] [facility] [address] [id number] [place] [address] Aug, [facility] [place] [facility] [address] [id number] [place] [address] June, [facility] [place] [facility] [address] [id number] [place] [address] Apr, [facility] [place] [facility] [address] [id number] [place] [address] Apr, [facility] [place] [facility] [address] [id number] [place] [address] Mar, [facility] [place] [facility] [address] [id number] [place] [address] Feb, [facility] [place] [facility] [address] [id number] [place] [address] Feb, [facility] [place] [facility] [address] [id number] [place] [address] Jan, [facility] [place] [facility] [address] [id number] [place] [address] Jan, [facility] [place] [facility] [address] [id number] [place] [address] Dec, [facility] [place] [facility] [address] [id number], [place] [address] Dec, [facility] [place] [facility] [address] [id number], [place] [address] Dec, [facility] [place] [facility] [address] [id number] [place] [address] Nov, [facility] [place] [facility] [address] [id number] [place] [address] Sep, [facility] [place] [facility] [address] [id number] [place] [address] Apr, [facility] [place] [facility] [address] [id number] [address] 16 Mar, 2010 [facility] [id number] [address] Jan, [facility] [id number], [place] [address] Dec, [facility] [id number], [place] [address] Nov, [facility] [id number], [place] [address] Sep, [facility] [id number] [place] [address] Jul, [facility] [id number], [place] [address] Feb, [facility] [id number], [place] [address] Jan, IMMUNIZATIONS No Known Immunizations SOCIAL HISTORY Never Assessed REASON FOR VISIT PLAN OF CARE VITAL SIGNS MEDICATIONS No Known Medications RESULTS No Results PROCEDURES No Known procedures INSTRUCTIONS MEDICATIONS ADMINISTERED No Known Medications MEDICAL (GENERAL) HISTORY Type Description Date Medical History spinal compression fracture Medical History cardiovascular disease Medical History stent placed 03-07-15 Surgical History cardiac stent 03-07-15 Surgical History Cardiac stent 11/2015 Hospitalization History [place] with stent placement 03-06-15 Hospitalization History Cardiac Stent Collapsed/Heart attack 11/2015
--- OUTSIDE RECORDS SUMMARY | 2018-01-15 21:28 | XMS REPORT | Continuity of Care Document ---
Author Author [facility] Address Unknown Phone Unavailable Allergies Active Description Code Type Severity Reaction Onset Reported/Identified Relationship to Patient Clinical Status Yes No Known Drug Allergies [id number] Drug Allergy Unknown N/A 11/02/2007 Yes allopurinol Drug Allergy N/A N/A 05/10/2008 Yes allopurinol Drug Allergy 05/10/2008 Yes Metoprolol Tartrate 100 mg Tablet Drug Allergy N/A N/A 10/03/2011 Yes Metoprolol Tartrate 100 mg Tablet Drug Allergy 10/03/2011 Medications There is no data. Problems Date Dx Coded Attending Type Code Diagnosis Diagnosed By 08/23/2007 ROB RAMIREZ MD 724.4 BACK PAIN WITH RADIATION 08/23/2007 ROB RAMIREZ MD 724.4 BACK PAIN WITH RADIATION 08/23/2007 724.4 BACK PAIN WITH RADIATION 08/23/2007 ROB RAMIREZ MD 724.4 BACK PAIN WITH RADIATION 08/23/2007 ROB RAMIERZ MD 724.4 BACK PAIN WITH RADIATION 08/23/2007 ASPEN DAI DO 724.4 BACK PAIN WITH RADIATION 08/23/2007 ROB RAMIREZ MD 724.4 BACK PAIN WITH RADIATION 08/23/2007 ROB RAMIREZ MD 724.4 BACK PAIN WITH RADIATION 08/23/2007 ROB RAMIREZ MD 724.4 BACK PAIN WITH RADIATION 08/23/2007 ROB RAMIREZ MD 724.4 BACK PAIN WITH RADIATION 08/23/2007 ROB RAMIREZ MD 724.4 BACK PAIN WITH RADIATION 08/23/2007 ROB RAMIREZ MD 724.4 BACK PAIN WITH RADIATION 08/23/2007 ROB RAMIREZ MD 724.4 BACK PAIN WITH RADIATION 08/23/2007 724.4 BACK PAIN WITH RADIATION 09/20/2007 ROB RAMIREZ MD 719.46 Pain In Joint Involving Lower Leg 09/20/2007 ROB RAMIREZ MD 719.46 Pain In Joint Involving Lower Leg 09/20/2007 719.46 Pain In Joint Involving Lower Leg 09/20/2007 ROB RAMIREZ MD 719.46 Pain In Joint Involving Lower Leg 09/20/2007 ROB RAMIREZ MD 719.46 Pain In Joint Involving Lower Leg 09/20/2007 ASPEN DAI DO 719.46 Pain In Joint Involving Lower Leg 09/20/2007 ROB RAMIREZ MD 719.46 Pain In Joint Involving Lower Leg 09/20/2007 ROB RAMIREZ MD 719.46 Pain In Joint Involving Lower Leg 09/20/2007 ROB RAMIREZ MD 719.46 Pain In Joint Involving Lower Leg 09/20/2007 ROB RAMIREZ MD 719.46 Pain In Joint Involving Lower Leg 09/20/2007 ROB RAMIREZ MD 719.46 Pain In Joint Involving Lower Leg 09/20/2007 ROB RAMIREZ MD 719.46 Pain In Joint Involving Lower Leg 09/20/2007 ROB RAMIREZ MD 71Dontrell.46 Pain In Joint Involving Lower Leg 09/20/2007 719.46 Pain In Joint Involving Lower Leg 10/17/2007 ROB RAMIREZ MD 724.2 Pain Low Back 10/17/2007 ROB RAMIREZ MD4.2 Pain Low Back 10/17/2007 724.2 Pain Low Back 10/17/2007 ROB RAMIREZ MD 724.2 Pain Low Back 10/17/2007 ROB RAMIREZ MD 724.2 Pain Low Back 10/17/2007 ASPEN DAI DO 724.2 Pain Low Back 10/17/2007 ROB RAMIREZ MD 724.2 Pain Low Back 10/17/2007 ROB RAMIREZ MD 724.2 Pain Low Back 10/17/2007 ROB RAMIREZ MD 724.2 Pain Low Back 10/17/2007 ROB RAMIREZ MD 724.2 Pain Low Back 10/17/2007 ROB RAMIREZ MD 724.2 Pain Low Back 10/17/2007 ROB RAMIREZ MD 724.2 Pain Low Back 10/17/2007 ROB RAMIREZ MD 724.2 Pain Low Back 10/17/2007 724.2 Pain Low Back 05/10/2008 ROB RAMIREZ MD 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 05/10/2008 ROB RAMIREZ MD 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 05/10/2008 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 05/10/2008 ROB RAMIREZ MD 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 05/10/2008 ROB RAMIREZ MD 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 05/10/2008 ASPEN DAI DO 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 05/10/2008 ROB RAMIREZ MD 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 05/10/2008 ROB RAMIREZ MD 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 05/10/2008 ROB RAMIREZ MD 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 05/10/2008 ROB RAMIREZ MD9.2 NEURALGIA NEURITIS AND RADICULITIS UNSPECIFIED 05/10/2008 ROB RAMIREZ MD 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 05/10/2008 ROB RAMIREZ MD 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 05/10/2008 ROB RAMIREZ MD9.2 NEURALGIA NEURITIS AND RADICULITIS UNSPECIFIED 05/10/2008 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 05/25/2008 ROB RAMIREZ MD 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 05/25/2008 ROB RAMIREZ MD 410.90 Acute Myocardial Infarction Of Unspecified Site Episode Of Care Unspecified 05/25/2008 ROB RAMIREZ MD 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 05/25/2008 ROB RAMIREZ MD 410.90 Acute Myocardial Infarction Of Unspecified Site Episode Of Care Unspecified 05/25/2008 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 05/25/2008 410.90 Acute Myocardial Infarction Of Unspecified Site Episode Of Care Unspecified 05/25/2008 ROB RAMIREZ MD 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 05/25/2008 ROB RAMIREZ MD 410.90 Acute Myocardial Infarction Of Unspecified Site Episode Of Care Unspecified 05/25/2008 ROB RAMIREZ MD 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 05/25/2008 ROB RAMIREZ MD 410.90 Acute Myocardial Infarction Of Unspecified Site Episode Of Care Unspecified 05/25/[address] K 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 05/25/[address] K 410.90 Acute Myocardial Infarction Of Unspecified Site Episode Of Care Unspecified 05/25/2008 ROB RAMIREZ MD 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 05/25/2008 ROB RAMIREZ MD 410.90 Acute Myocardial Infarction Of Unspecified Site Episode Of Care Unspecified 05/25/2008 ROB RAMIREZ MD 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 05/25/2008 ROB RAMIREZ MD 410.90 Acute Myocardial Infarction Of Unspecified Site Episode Of Care Unspecified 05/25/2008 ROB RAMIREZ MD 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 05/25/2008 ROB RAMIREZ MD 410.90 Acute Myocardial Infarction Of Unspecified Site Episode Of Care Unspecified 05/25/2008 ROB RAMIREZ MD 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 05/25/2008 ROB RAMIREZ MD 410.90 Acute Myocardial Infarction Of Unspecified Site Episode Of Care Unspecified 05/25/2008 ROB RAMIREZ MD 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 05/25/2008 ROB RAMIREZ MD 410.90 Acute Myocardial Infarction Of Unspecified Site Episode Of Care Unspecified 05/25/2008 ROB RAMIREZ MD 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 05/25/2008 ROB RAMIREZ MD 410.90 Acute Myocardial Infarction Of Unspecified Site Episode Of Care Unspecified 05/25/2008 ROB RAMIREZ MD 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 05/25/2008 ROB RAMIREZ MD 410.90 Acute Myocardial Infarction Of Unspecified Site Episode Of Care Unspecified 05/25/2008 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 05/25/2008 410.90 Acute Myocardial Infarction Of Unspecified Site Episode Of Care Unspecified 02/03/2009 ROB RAMIREZ MD 465.9 Upper Respiratory Infection 02/03/2009 ROB RAMIREZ MD 724.5 BACKACHE 02/03/2009 ROB RAMRIEZ MD 786.07 Wheezing [as A Symptom] 02/03/2009 ROB RAMIREZ MD 786.2 Cough 02/03/2009 ROB RAMIREZ MD 465.9 Upper Respiratory Infection 02/03/2009 ROB RAMIREZ MD 724.5 BACKACHE 02/03/2009 ROB RAMIREZ MD 786.07 Wheezing [as A Symptom] 02/03/2009 ROB RAMIREZ MD 786.2 Cough 02/03/2009 465.9 Upper Respiratory Infection 02/03/2009 724.5 BACKACHE 02/03/2009 786.07 Wheezing [as A Symptom] 02/03/2009 786.2 Cough 02/03/2009 ROB RAMIREZ MD 465.9 Upper Respiratory Infection 02/03/2009 ROB RAMIREZ MD 724.5 BACKACHE 02/03/2009 ROB RAMIREZ MD 786.07 Wheezing [as A Symptom] 02/03/2009 ROB RAMIREZ MD 786.2 Cough 02/03/2009 ROB RAMIREZ MD 465.9 Upper Respiratory Infection 02/03/2009 ROB RAMIREZ MD 724.5 BACKACHE 02/03/2009 ROB RAMIREZ MD 786.07 Wheezing [as A Symptom] 02/03/2009 ROB RAMIREZ MD 786.2 Cough 02/03/2009 DAI DO, ASPEN K 465.9 Upper Respiratory Infection 02/03/2009 DAI DO, ASPEN K 724.5 BACKACHE 02/03/2009 DAI DO, ASPEN K 786.07 Wheezing [as A Symptom] 02/03/2009 DAI DO, ASPEN K 786.2 Cough 02/03/2009 ROB RAMIREZ MD 465.9 Upper Respiratory Infection 02/03/2009 ROB RAMIREZ MD 724.5 BACKACHE 02/03/2009 ROB RAMIREZ MD 786.07 Wheezing [as A Symptom] 02/03/2009 ROB RAMIREZ MD 786.2 Cough 02/03/2009 ROB RAMIREZ MD 465.9 Upper Respiratory Infection 02/03/2009 JAMES BARNES, ROB 724.5 BACKACHE 02/03/2009 JAMES BARNES, ROB 786.07 Wheezing [as A Symptom] 02/03/2009 JAMES BARNES, ROB 786.2 Cough 02/03/2009 JAMES BARNES, ROB 465.9 Upper Respiratory Infection 02/03/2009 JAMES BARNES, ROB 724.5 BACKACHE 02/03/2009 JAMES BARNES, ROB 786.07 Wheezing [as A Symptom] 02/03/2009 JAMES BARNES, ROB 786.2 Cough 02/03/2009 JAMES BARNES, ROB 465.9 Upper Respiratory Infection 02/03/2009 JAMES BARNES, ROB 724.5 BACKACHE 02/03/2009 JAMES BARNES, ROB 786.07 Wheezing [as A Symptom] 02/03/2009 JAMES BARNSE, ROB 786.2 Cough 02/03/2009 JAMES BARNES, ROB 465.9 Upper Respiratory Infection 02/03/2009 JAMES BARNES, ROB 724.5 BACKACHE 02/03/2009 JAMES BARNES, ROB 786.07 Wheezing [as A Symptom] 02/03/2009 JAMES BARNES, ROB 786.2 Cough 02/03/2009 JAMES BARNES, ROB 465.9 Upper Respiratory Infection 02/03/2009 JAMES BARNES, ROB 724.5 BACKACHE 02/03/2009 JAMES BARNES, ROB 786.07 Wheezing [as A Symptom] 02/03/2009 JAMES BARNES, ROB 786.2 Cough 02/03/2009 JAMES BARNES, ROB 465.9 Upper Respiratory Infection 02/03/2009 JAMES BARNES, ROB 724.5 BACKACHE 02/03/2009 JAMES BARNES, ROB 786.07 Wheezing [as A Symptom] 02/03/2009 JAMES BARNES, ROB 786.2 Cough 02/03/2009 465.9 Upper Respiratory Infection 02/03/2009 724.5 BACKACHE 02/03/2009 786.07 Wheezing [as A Symptom] 02/03/2009 786.2 Cough 03/06/2009 JAMES BARNES, ROB 278.01 Morbid Obesity 03/06/2009 JAMES BARNES, ROB 401.9 UNSPECIFIED ESSENTIAL HYPERTENSION 03/06/2009 JAMES BARNES, ROB 278.01 Morbid Obesity 03/06/2009 JAMES BARNES, ROB 401.9 UNSPECIFIED ESSENTIAL HYPERTENSION 03/06/2009 278.01 Morbid Obesity 03/06/2009 401.9 UNSPECIFIED ESSENTIAL HYPERTENSION 03/06/2009 JAMES BARNES, ROB 278.01 Morbid Obesity 03/06/2009 JAMES BARNES, ROB 401.9 UNSPECIFIED ESSENTIAL HYPERTENSION 03/06/2009 JAMES BARNES, ROB 278.01 Morbid Obesity 03/06/2009 JAMES BARNES, ROB 401.9 UNSPECIFIED ESSENTIAL HYPERTENSION 03/06/2009 DAI DO, ASPEN K 278.01 Morbid Obesity 03/06/2009 DAI DO, ASPEN K 401.9 UNSPECIFIED ESSENTIAL HYPERTENSION 03/06/2009 JAMES BARNES, ROB 278.01 Morbid Obesity 03/06/2009 JAMES BARNES, ROB 401.9 UNSPECIFIED ESSENTIAL HYPERTENSION 03/06/2009 JAMES BARNES, ROB 278.01 Morbid Obesity 03/06/2009 JAMES BARNES, ROB 401.9 UNSPECIFIED ESSENTIAL HYPERTENSION 03/06/2009 JAMES BARNES, ROB 278.01 Morbid Obesity 03/06/2009 JAMES BARNES, ROB 401.9 UNSPECIFIED ESSENTIAL HYPERTENSION 03/06/2009 JAMES BARNES, ROB 278.01 Morbid Obesity 03/06/2009 JAMES BARNES, ROB 401.9 UNSPECIFIED ESSENTIAL HYPERTENSION 03/06/2009 JAMES BARNES, ROB 278.01 Morbid Obesity 03/06/2009 JAMES BARNES, ROB 401.9 UNSPECIFIED ESSENTIAL HYPERTENSION 03/06/2009 JAMES BARNES, ROB 278.01 Morbid Obesity 03/06/2009 JAMES BARNES, ROB 401.9 UNSPECIFIED ESSENTIAL HYPERTENSION 03/06/2009 JAMES BARNES, ROB 278.01 Morbid Obesity 03/06/2009 JAMES BARNES, ROB 401.9 UNSPECIFIED ESSENTIAL HYPERTENSION 03/06/2009 278.01 Morbid Obesity 03/06/2009 401.9 UNSPECIFIED ESSENTIAL HYPERTENSION 06/08/2009 JAMES BARNES, ROB 274.9 GOUT UNSPECIFIED 06/08/2009 JAMES BARNES, ROB 307.40 INSOMNIA 06/08/2009 JAMES BARNES, ROB 357.9 Neuropathy Unsp 06/08/2009 JAMES BARNES, ROB 274.9 GOUT UNSPECIFIED 06/08/2009 JAMES BARNES, ROB 307.40 INSOMNIA 06/08/2009 JAMES BARNES, ROB 357.9 Neuropathy Unsp 06/08/2009 274.9 GOUT UNSPECIFIED 06/08/2009 307.40 INSOMNIA 06/08/2009 357.9 Neuropathy Unsp 06/08/2009 JAMES BARNES, ROB 274.9 GOUT UNSPECIFIED 06/08/2009 JAMES BARNES, ROB 307.40 INSOMNIA 06/08/2009 JAMES BARNES, ROB 357.9 Neuropathy Unsp 06/08/2009 JAMES BARNES, ROB 274.9 GOUT UNSPECIFIED 06/08/2009 JAMES BRANES, ROB 307.40 INSOMNIA 06/08/2009 JAMES BARNES, ROB 357.9 Neuropathy Unsp 06/08/2009 DAI DO, ASPEN K 274.9 GOUT UNSPECIFIED 06/08/2009 DAI DO, ASPEN K 307.40 INSOMNIA 06/08/2009 DAI DO, ASPEN K 357.9 Neuropathy Unsp 06/08/2009 JAMES BARNES, ROB 274.9 GOUT UNSPECIFIED 06/08/2009 JAMES BARNES, ROB 307.40 INSOMNIA 06/08/2009 JAMES BARNES, ROB 357.9 Neuropathy Unsp 06/08/2009 JAMES BARNES, ROB 274.9 GOUT UNSPECIFIED 06/08/2009 JAMES BARNES, ROB 307.40 INSOMNIA 06/08/2009 JAMES BARNES, ROB 357.9 Neuropathy Unsp 06/08/2009 JAMES BARNES, ROB 274.9 GOUT UNSPECIFIED 06/08/2009 JAMES BARNES, ROB 307.40 INSOMNIA 06/08/2009 JAMES BARNES, ROB 357.9 Neuropathy Unsp 06/08/2009 JAMES BARNES, ROB 274.9 GOUT UNSPECIFIED 06/08/2009 JAMES BARNES, ROB 307.40 INSOMNIA 06/08/2009 JAMES BARNES, ROB 357.9 Neuropathy Unsp 06/08/2009 JAMES BARNES, ROB 274.9 GOUT UNSPECIFIED 06/08/2009 JAMES BARNES, ROB 307.40 INSOMNIA 06/08/2009 JAMES BARNES, ROB 357.9 Neuropathy Unsp 06/08/2009 JAMES BARNES, ROB 274.9 GOUT UNSPECIFIED 06/08/2009 JAMES BARNES, ROB 307.40 INSOMNIA 06/08/2009 JAMES BARNES, ROB 357.9 Neuropathy Unsp 06/08/2009 JAMES BARNES, ROB 274.9 GOUT UNSPECIFIED 06/08/2009 JAMES BARNES, ROB 307.40 INSOMNIA 06/08/2009 ROB RAMIREZ MD 357.9 Neuropathy Unsp 06/08/2009 274.9 GOUT UNSPECIFIED 06/08/2009 307.40 INSOMNIA 06/08/2009 357.9 Neuropathy Unsp 10/01/2009 JAMES BARNES, ROB 564.00 Constipation 10/01/2009 JAMES BARNES, ROB 564.00 Constipation 10/01/2009 564.00 Constipation 10/01/2009 JAMES BARNES, ROB 564.00 Constipation 10/01/2009 JAMES BARNES, ROB 564.00 Constipation 10/01/2009 ASPEN DAI DO K 564.00 Constipation 10/01/2009 JAMES BARNES, ROB 564.00 Constipation 10/01/2009 JAMES BARNES, ROB 564.00 Constipation 10/01/2009 JAMES BARNES, ROB 564.00 Constipation 10/01/2009 JAMES BARNES, ROB 564.00 Constipation 10/01/2009 JAMES BARNES, ROB 564.00 Constipation 10/01/2009 JAMES BARNES, ROB 564.00 Constipation 10/01/2009 JAMES BARNES, ROB 564.00 Constipation 10/01/2009 564.00 Constipation 03/31/2010 JAMES BARNES, ROB 382.00 Acute Suppurative Otitis Media Without Spontaneous Rupture Of Eardrum 03/31/2010 ROB RAMIREZ MD 382.00 Acute Suppurative Otitis Media Without Spontaneous Rupture Of Eardrum 03/31/2010 382.00 Acute Suppurative Otitis Media Without Spontaneous Rupture Of Eardrum 03/31/2010 ROB RAMIREZ MD 382.00 Acute Suppurative Otitis Media Without Spontaneous Rupture Of Eardrum 03/31/2010 JAMES BARNES, ROB 382.00 Acute Suppurative Otitis Media Without Spontaneous Rupture Of Eardrum 03/31/[address], ASPEN K 382.00 Acute Suppurative Otitis Media Without Spontaneous Rupture Of Eardrum 03/31/2010 JAMES BARNES, ROB 382.00 Acute Suppurative Otitis Media Without Spontaneous Rupture Of Eardrum 03/31/2010 JAMES BARNES, ROB 382.00 Acute Suppurative Otitis Media Without Spontaneous Rupture Of Eardrum 03/31/2010 JAMES BARNES, ROB 382.00 Acute Suppurative Otitis Media Without Spontaneous Rupture Of Eardrum 03/31/2010 JAMES BARNES, ROB 382.00 Acute Suppurative Otitis Media Without Spontaneous Rupture Of Eardrum 03/31/2010 JAMES BARNES, ROB 382.00 Acute Suppurative Otitis Media Without Spontaneous Rupture Of Eardrum 03/31/2010 JAMES BARNES, ROB 382.00 Acute Suppurative Otitis Media Without Spontaneous Rupture Of Eardrum 03/31/2010 JAMES BARNES, ROB 382.00 Acute Suppurative Otitis Media Without Spontaneous Rupture Of Eardrum 03/31/2010 382.00 Acute Suppurative Otitis Media Without Spontaneous Rupture Of Eardrum 04/09/2010 JAMES BARNES, ROB 381.01 Otitis Media, Acute Serous 04/09/2010 JAMES BARNES, ROB 381.01 Otitis Media, Acute Serous 04/09/2010 381.01 Otitis Media , Acute Serous 04/09/2010 JAMES BARNES, ROB 381.01 Otitis Media, Acute Serous 04/09/2010 JAMES BARNES, ROB 381.01 Otitis Media, Acute Serous 04/09/[address] 381.01 Otitis Media, Acute Serous 04/09/2010 JAMES BARNES, ROB 381.01 Otitis Media, Acute Serous 04/09/2010 JAMES BARNES, ROB 381.01 Otitis Media, Acute Serous 04/09/2010 JAMES BARNES, ROB 381.01 Otitis Media, Acute Serous 04/09/2010 JAMES BARNES, ROB 381.01 Otitis Media, Acute Serous 04/09/2010 ROB RAMIREZ MD 381.01 Otitis Media, Acute Serous 04/09/2010 ROB RAMIREZ MD 381.01 Otitis Media, Acute Serous 04/09/2010 JAMES BARNES, ROB 381.01 Otitis Media, Acute Serous 04/09/2010 381.01 Otitis Media , Acute Serous 04/27/2010 ROB RAMIREZ MD 719.45 Hip Pain 04/27/2010 ROB RAMIREZ MD 719.45 Hip Pain 04/27/2010 719.45 Hip Pain 04/27/2010 ROB RAMIREZ MD 719.45 Hip Pain 04/27/2010 ROB RAMIREZ MD 719.45 Hip Pain 04/27/2010 ASPEN DAI DO 719.45 Hip Pain 04/27/2010 ROB RAMIREZ MD 719.45 Hip Pain 04/27/2010 ROB RAMIREZ MD.45 Hip Pain 04/27/2010 ROB RAMIREZ MD.45 Hip Pain 04/27/2010 ROB RAMIREZ MD.45 Hip Pain 04/27/2010 ROB RAMIREZ MD.45 Hip Pain 04/27/2010 ROB RAMIREZ MD 719.45 Hip Pain 04/27/2010 ROB RAMIREZ MD.45 Hip Pain 04/27/2010 719.45 Hip Pain 04/28/2010 ROB RAMIREZ MD.45 Hip Pain 04/28/2010 ROB RAMIREZ MD.45 Hip Pain 04/28/2010 719.45 Hip Pain 04/28/2010 ROB RAMIREZ MD.45 Hip Pain 04/28/2010 ROB RAMIREZ MD.45 Hip Pain 04/28/2010 ASPEN DAI DO 719.45 Hip Pain 04/28/2010 ROB RAMIREZ MD.45 Hip Pain 04/28/2010 ROB RAMIREZ MD.45 Hip Pain 04/28/2010 ROB RAMIREZ MD.45 Hip Pain 04/28/2010 ROB RAMIREZ MD.45 Hip Pain 04/28/2010 ROB RAMIREZ MD.45 Hip Pain 04/28/2010 ROB RAMIREZ MD.45 Hip Pain 04/28/2010 ROB RAMIREZ MD.45 Hip Pain 04/28/2010 719.45 Hip Pain 06/08/2010 ROB RAMIREZ MD 782.2 Localized Superficial Swelling Mass Or Lump 06/08/2010 ROB RAMIREZ MD2.2 Localized Superficial Swelling Mass Or Lump 06/08/2010 782.2 Localized Superficial Swelling Mass Or Lump 06/08/2010 ROB RAMIREZ MD2.2 Localized Superficial Swelling Mass Or Lump 06/08/2010 ROB RAMIREZ MD2.2 Localized Superficial Swelling Mass Or Lump 06/08/2010 ASPEN DAI DO 782.2 Localized Superficial Swelling Mass Or Lump 06/08/2010 ROB RAMIREZ MD2.2 Localized Superficial Swelling Mass Or Lump 06/08/2010 ROB RAMRIEZ MD2.2 Localized Superficial Swelling Mass Or Lump 06/08/2010 ROB RAMIREZ MD 782.2 Localized Superficial Swelling Mass Or Lump 06/08/2010 ROB RAMIREZ MD 782.2 Localized Superficial Swelling Mass Or Lump 06/08/2010 ROB RAMIREZ MD 782.2 Localized Superficial Swelling Mass Or Lump 06/08/2010 ROB RAMIREZ MD 782.2 Localized Superficial Swelling Mass Or Lump 06/08/2010 ROB RAMIREZ MD 782.2 Localized Superficial Swelling Mass Or Lump 06/08/2010 782.2 Localized Superficial Swelling Mass Or Lump 09/27/2010 ROB RAMIREZ MD 214.1 Lipoma Of Other Skin And Subcutaneous Tissue 09/27/2010 ROB RAMIREZ MD 729.5 Pain In Limb 09/27/2010 ROB RAMIREZ MD 214.1 Lipoma Of Other Skin And Subcutaneous Tissue 09/27/2010 ROB RAMIREZ MD 729.5 Pain In Limb 09/27/2010 214.1 Lipoma Of Other Skin And Subcutaneous Tissue 09/27/2010 729.5 Pain In Limb 09/27/2010 ROB RAMIREZ MD 214.1 Lipoma Of Other Skin And Subcutaneous Tissue 09/27/2010 ROB RAMIREZ MD 729.5 Pain In Limb 09/27/2010 ROB RAMIREZ MD 214.1 Lipoma Of Other Skin And Subcutaneous Tissue 09/27/2010 ROB RAMIREZ MD 729.5 Pain In Limb 09/27/2010 MALAIKA DOASPEN K 214.1 Lipoma Of Other Skin And Subcutaneous Tissue 09/27/2010 DAI DOASPEN K 729.5 Pain In Limb 09/27/2010 ROB RAMIREZ MD 214.1 Lipoma Of Other Skin And Subcutaneous Tissue 09/27/2010 ROB RAMIREZ MD9.5 Pain In Limb 09/27/2010 ROB RAMIREZ MD 214.1 Lipoma Of Other Skin And Subcutaneous Tissue 09/27/2010 ROB RAMIREZ MD9.5 Pain In Limb 09/27/2010 ROB RAMIREZ MD 214.1 Lipoma Of Other Skin And Subcutaneous Tissue 09/27/2010 ROB RAMIREZ MD 729.5 Pain In Limb 09/27/2010 ROB RAMIREZ MD 214.1 Lipoma Of Other Skin And Subcutaneous Tissue 09/27/2010 ROB RAMIREZ MD 729.5 Pain In Limb 09/27/2010 ROB RAMIREZ MD 214.1 Lipoma Of Other Skin And Subcutaneous Tissue 09/27/2010 ROB RAMIREZ MD 729.5 Pain In Limb 09/27/2010 ROB RAMIREZ MD 214.1 Lipoma Of Other Skin And Subcutaneous Tissue 09/27/2010 ROB RAMIREZ MD 729.5 Pain In Limb 09/27/2010 ROB RAMIREZ MD 214.1 Lipoma Of Other Skin And Subcutaneous Tissue 09/27/2010 ROB RAMIREZ MD 729.5 Pain In Limb 09/27/2010 214.1 Lipoma Of Other Skin And Subcutaneous Tissue 09/27/2010 729.5 Pain In Limb 12/24/2010 ROB RAMIREZ MD V04.81 Flu Dx (medicare Only) 12/24/2010 ROB RAMIREZ MD V65.3 Counseling - Dietary 12/24/2010 ROB RAMIREZ MD V68.1 Issue Of Repeat Prescriptions 12/24/2010 ROB RAMIREZ MD V04.81 Flu Dx (medicare Only) 12/24/2010 ROB RAMIREZ MD V65.3 Counseling - Dietary 12/24/2010 ROB RAMIREZ MD V68.1 Issue Of Repeat Prescriptions 12/24/2010 V04.81 Flu Dx ( medicare Only) 12/24/2010 V65.3 Counseling - Dietary 12/24/2010 V68.1 Issue Of Repeat Prescriptions 12/24/2010 ROB RAMIREZ MD V04.81 Flu Dx (medicare Only) 12/24/2010 ROB RAMIREZ MD V65.3 Counseling - Dietary 12/24/2010 ROB RAMIREZ MD V68.1 Issue Of Repeat Prescriptions 12/24/2010 ROB RAMIREZ MD V04.81 Flu Dx (medicare Only) 12/24/2010 ROB RAMIREZ MD V65.3 Counseling - Dietary 12/24/2010 ROB RAMIREZ MD V68.1 Issue Of Repeat Prescriptions 12/24/2010 DAI DO, ASPEN K V04.81 Flu Dx (medicare Only) 12/24/2010 DAI DO, ASPEN K V65.3 Counseling - Dietary 12/24/2010 DAI DO, ASPEN K V68.1 Issue Of Repeat Prescriptions 12/24/2010 ROB RAMIREZ MD V04.81 Flu Dx (medicare Only) 12/24/2010 ROB RAMIREZ MD V65.3 Counseling - Dietary 12/24/2010 ROB RAMIREZ MD V68.1 Issue Of Repeat Prescriptions 12/24/2010 ROB RAMIREZ MD V04.81 Flu Dx (medicare Only) 12/24/2010 ROB RAMIREZ MD V65.3 Counseling - Dietary 12/24/2010 ROB RAMIREZ MD V68.1 Issue Of Repeat Prescriptions 12/24/2010 ROB RAMIREZ MD V04.81 Flu Dx (medicare Only) 12/24/2010 ROB RAMIREZ MD V65.3 Counseling - Dietary 12/24/2010 ROB RAMIREZ MD V68.1 Issue Of Repeat Prescriptions 12/24/2010 ROB RAMIREZ MD V04.81 Flu Dx (medicare Only) 12/24/2010 ROB RAMIREZ MD V65.3 Counseling - Dietary 12/24/2010 ROB RAMIREZ MD V68.1 Issue Of Repeat Prescriptions 12/24/2010 ROB RAMIREZ MD V04.81 Flu Dx (medicare Only) 12/24/2010 ROB RAMIREZ MD V65.3 Counseling - Dietary 12/24/2010 ROB RAMIREZ MD V68.1 Issue Of Repeat Prescriptions 12/24/2010 ROB RAMIREZ MD V04.81 Flu Dx (medicare Only) 12/24/2010 ROB RAMIREZ MD V65.3 Counseling - Dietary 12/24/2010 ROB RAMIREZ MD V68.1 Issue Of Repeat Prescriptions 12/24/2010 ROB RAMIERZ MD V04.81 Flu Dx (medicare Only) 12/24/2010 ROB RAMIREZ MD V65.3 Counseling - Dietary 12/24/2010 ROB RAMIREZ MD V68.1 Issue Of Repeat Prescriptions 12/24/2010 V04.81 Flu Dx ( medicare Only) 12/24/2010 V65.3 Counseling - Dietary 12/24/2010 V68.1 Issue Of Repeat Prescriptions 05/10/2011 ROB RAMIREZ MD 278.01 Morbid Obesity 05/10/2011 ROB RAMIREZ MD 278.01 Morbid Obesity 05/10/2011 278.01 Morbid Obesity 05/10/2011 ROB RAMIREZ MD 278.01 Morbid Obesity 05/10/2011 ROB RAMIREZ MD 278.01 Morbid Obesity 05/10/2011 ASPEN DAI DO K 278.01 Morbid Obesity 05/10/2011 JAMES BARNES, ROB 278.01 Morbid Obesity 05/10/2011 JAMES BARNES, ROB 278.01 Morbid Obesity 05/10/2011 JAMES BARNES, ROB 278.01 Morbid Obesity 05/10/2011 JAMES BARNES, ROB 278.01 Morbid Obesity 05/10/2011 JAMES BARNES, ROB 278.01 Morbid Obesity 05/10/2011 ROB RAMIREZ MD 278.01 Morbid Obesity 05/10/2011 JAMES BARNES, ROB 278.01 Morbid Obesity 05/10/2011 278.01 Morbid Obesity 08/21/2012 JAMES BARNES, ROB 356.9 UNSPECIFIED IDIOPATHIC PERIPHERAL NEUROPATHY 08/21/2012 JAMES BARNES, ROB 356.9 UNSPECIFIED IDIOPATHIC PERIPHERAL NEUROPATHY 08/21/2012 ASPEN DAI DO 356.9 UNSPECIFIED IDIOPATHIC PERIPHERAL NEUROPATHY 08/21/2012 ROB RAMIREZ MD 356.9 UNSPECIFIED IDIOPATHIC PERIPHERAL NEUROPATHY 08/21/2012 ROB RAMIREZ MD 356.9 UNSPECIFIED IDIOPATHIC PERIPHERAL NEUROPATHY 08/21/2012 ROB RAMIREZ MD 356.9 UNSPECIFIED IDIOPATHIC PERIPHERAL NEUROPATHY 08/21/2012 JAMES BARNES, ROB 356.9 UNSPECIFIED IDIOPATHIC PERIPHERAL NEUROPATHY 08/21/2012 JAMES BARNES, ROB 356.9 UNSPECIFIED IDIOPATHIC PERIPHERAL NEUROPATHY 08/21/2012 JAMES BARNES, ROB 356.9 UNSPECIFIED IDIOPATHIC PERIPHERAL NEUROPATHY 08/21/2012 JAMES BARNES, ROB 356.9 UNSPECIFIED IDIOPATHIC PERIPHERAL NEUROPATHY 12/10/2012 ROB RAMIREZ MD 401.1 BENIGN ESSENTIAL HYPERTENSION 12/10/2012 ROB RAMIREZ MD 785.6 ENLARGEMENT OF LYMPH NODES 12/10/2012 ASPEN DAI DO K 401.1 BENIGN ESSENTIAL HYPERTENSION 12/10/2012 ASPEN DAI DO K 785.6 ENLARGEMENT OF LYMPH NODES 12/10/2012 ROB RAMIREZ MD 401.1 BENIGN ESSENTIAL HYPERTENSION 12/10/2012 ROB RAMIREZ MD 785.6 ENLARGEMENT OF LYMPH NODES 12/10/2012 ROB RAMIREZ MD 401.1 BENIGN ESSENTIAL HYPERTENSION 12/10/2012 ROB RAMIREZ MD 785.6 ENLARGEMENT OF LYMPH NODES 12/10/2012 ROB RAMIREZ MD 401.1 BENIGN ESSENTIAL HYPERTENSION 12/10/2012 ROB RAMIREZ MD 785.6 ENLARGEMENT OF LYMPH NODES 12/10/2012 JAMES BARNES, ROB 401.1 BENIGN ESSENTIAL HYPERTENSION 12/10/2012 JAMES BARNES, ROB 785.6 ENLARGEMENT OF LYMPH NODES 12/10/2012 JAMES BARNES, ROB 401.1 BENIGN ESSENTIAL HYPERTENSION 12/10/2012 JAMES BARNES, ROB 785.6 ENLARGEMENT OF LYMPH NODES 12/10/2012 JAMES BARNES, ROB 401.1 BENIGN ESSENTIAL HYPERTENSION 12/10/2012 JAMES BARNES, ROB 785.6 ENLARGEMENT OF LYMPH NODES 12/10/2012 JAMES BARNES, ROB 401.1 BENIGN ESSENTIAL HYPERTENSION 12/10/2012 JAMES BARNES, ROB 785.6 ENLARGEMENT OF LYMPH NODES 02/19/2013 ASPEN DAI DO 522.5 PERIAPICAL ABSCESS WITHOUT SINUS 02/19/2013 JAMES BARNES, ROB 522.5 PERIAPICAL ABSCESS WITHOUT SINUS 02/19/2013 JAMES BARNES, ROB 522.5 PERIAPICAL ABSCESS WITHOUT SINUS 02/19/2013 JAMES BARNES, ROB 522.5 PERIAPICAL ABSCESS WITHOUT SINUS 02/19/2013 JAMES BARNES, ROB 522.5 PERIAPICAL ABSCESS WITHOUT SINUS 02/19/2013 JAMES BARNES, ROB 522.5 PERIAPICAL ABSCESS WITHOUT SINUS 02/19/2013 JAMES BARNES, ROB 522.5 PERIAPICAL ABSCESS WITHOUT SINUS 02/19/2013 JAMES BARNES, ROB 522.5 PERIAPICAL ABSCESS WITHOUT SINUS 07/11/2013 JAMES BARNES, ROB 723.0 SPINAL STENOSIS IN CERVICAL REGION 07/11/2013 JAMES BARNES, ROB 723.0 SPINAL STENOSIS IN CERVICAL REGION 07/11/2013 ROB RAMIREZ MD 723.0 SPINAL STENOSIS IN CERVICAL REGION 07/11/2013 JAMES BARNES, ROB 723.0 SPINAL STENOSIS IN CERVICAL REGION 11/07/2013 JAMES BARNES, ROB 703.0 INGROWING NAIL 11/07/2013 JAMES BARNES, ROB 703.0 INGROWING NAIL 11/07/2013 ROB RAMIREZ MD 703.0 INGROWING NAIL 02/14/2014 ROB RAMIREZ MD 463 ACUTE TONSILLITIS 06/12/2014 JAMES BARNES, ROB F Ot 784.2 06/12/2014 JAMES BARNES, ROB Wan Ot 785.6 06/12/2014 VANESSAMARLEEN SOLOMON DO Ot 401.9 HYPERTENSION NOS 06/12/2014 MARLEEN MENDEZ DO Ot 722.4 CERVICAL DISC DEGEN 06/12/2014 MARLEEN MENDEZ DO Ot 723.1 CERVICALGIA 06/12/2014 MARLEEN MENDEZ DO Ot 847.0 SPRAIN OF NECK 06/12/2014 MARLEEN MENDEZ DO Ot E000.8 OTHER EXTERNAL CAUSE STATUS 06/12/2014 MARLEEN MENDEZ DO Ot E927.0 OVEREXERTION FROM SUDDEN STRENUOUS MOVEM 06/12/2014 MARLEEN MENDEZ DO Ot V58.69 OT MED,LT,CURRENT USE 03/08/2015 LADAN AKINS MD, Ot E66.01 MORBID (SEVERE) OBESITY DUE TO EXCESS CA 03/08/2015 LADAN AKINS MD Ot E78.5 HYPERLIPIDEMIA, UNSPECIFIED 03/08/2015 LADAN AKINS MD Ot I10 ESSENTIAL (PRIMARY) HYPERTENSION 03/08/2015 LADAN AKINS MD Ot I21.4 NON-ST ELEVATION (NSTEMI) MYOCARDIAL INF 03/08/2015 LADAN AKINS MD, Ot I25.10 ATHSCL HEART DISEASE OF [place] CORONARY 03/08/2015 LADAN AKINS MD, Ot K21.9 GASTRO-ESOPHAGEAL REFLUX DISEASE WITHOUT 03/08/2015 LADAN AKINS MD Ot Z23 ENCOUNTER FOR IMMUNIZATION 03/08/2015 LADAN AKINS MD, Ot Z68.43 BODY MASS INDEX (BMI) 50-59.9 , ADULT 03/08/2015 LADAN AKINS MD Ot Z91.14 PATIENT'S OTHER NONCOMPLIANCE WITH MEDIC 03/08/2015 LADAN AKINS MD Ot Z95.5 PRESENCE OF CORONARY ANGIOPLASTY IMPLANT 03/08/2015 LADAN AKINS MD Ot E66.01 03/08/2015 LADAN AKINS MD Ot E78.5 03/08/2015 LADAN AKINS MD Ot I10 03/08/2015 LADAN AKINS MD Ot I21.4 03/08/2015 LADAN AKINS MD Ot I25.10 03/08/2015 LADAN AKINS MD, Ot K21.9 03/08/2015 MABLE MD, BASHAR J Ot Z23 03/08/2015 MABLE BARNES, BASHAR J Ot Z68.43 03/08/2015 MABLE BARNES, BASHAR J Ot Z91.14 03/08/2015 MABLE BARNES, BASHAR J Ot Z95.5 03/11/2015 MABLE BARNES, BASHAR J Ot E66.01 03/11/2015 MABLE BARNES, BASHAR J Ot E78.5 03/11/2015 MABLE BARNES, BASHAR J Ot I10 03/11/2015 MABLE BARNES, BASHAR J Ot I21.4 03/11/2015 MABLE BARNES, BASHAR J Ot I25.10 03/11/2015 MABLE BARNES, BASHAR J Ot K21.9 03/11/2015 MABLE BARNES, BASHAR J Ot Z23 03/11/2015 MABLE BARNES, BASHAR J Ot Z68.43 03/11/2015 MABLE BARNES, BASHAR J Ot Z91.14 03/11/2015 MABLE BARNES, BASHAR J Ot Z95.5 03/11/2015 MABLE BARNES, BASHAR J Ot E66.01 03/11/2015 MABLE BARNES, BASHAR J Ot E78.5 03/11/2015 MABLE BARNES, BASHAR J Ot I10 03/11/2015 MABLE BARNES, BASHAR J Ot I21.4 03/11/2015 MABLE BARNES, BASHAR J Ot I25.10 03/11/2015 MABLE BARNES, BASHAR J Ot K21.9 03/11/2015 MABLE BARNES, BASHAR J Ot Z23 03/11/2015 MABLE BARNES, BASHAR J Ot Z68.43 03/11/2015 MABLE BARNES, BASHAR J Ot Z91.14 03/11/2015 MABLE BARNES, BASHAR J Ot Z95.5 03/11/2015 MABLE BARNES, BASHAR J Ot E66.01 03/11/2015 MABLE BARNES, BASHAR J Ot E78.5 03/11/2015 MABLE BARNES, BASHAR J Ot I10 03/11/2015 MABLE BARNES, BASHAR J Ot I21.4 03/11/2015 MABLE BARNES, BASHAR J Ot I25.10 03/11/2015 MABLE BARNES, BASHAR J Ot K21.9 03/11/2015 LADAN AKINS MD Ot Z23 03/11/2015 LADAN AKINS MD Ot Z68.43 03/11/2015 LADAN AKINS MD Ot Z91.14 03/11/2015 LADAN AKINS MD Ot Z95.5 03/14/2015 June SOFIA MD, Ot F17.210 NICOTINE DEPENDENCE, CIGARETTES, UNCOMPL 03/14/2015 June SOFIA MD Ot I21.4 NON-ST ELEVATION (NSTEMI) MYOCARDIAL INF 03/14/2015 June SOFIA MD Ot I25.10 ATHSCL HEART DISEASE OF [place] CORONARY 03/14/2015 KIMBERLYN BARNES, June SHARP Ot R07.9 CHEST PAIN, UNSPECIFIED 03/14/2015 June SOFIA MD Ot R19.7 DIARRHEA, UNSPECIFIED 03/14/2015 June SOFIA MD Ot Z95.5 PRESENCE OF CORONARY ANGIOPLASTY IMPLANT 04/01/2015 ROB RAMIREZ MD Ot 784.2 04/01/2015 ROB RAMIREZ MD Ot 785.6 04/06/2015 DINROA KAHN INDUCTION MACHINE OPERATOR Ot M25.572 04/07/2015 DINORA KAHN INDUCTION MACHINE OPERATOR Ot M25.572 07/13/2015 TITUS REDDY MD Ot F17.210 NICOTINE DEPENDENCE, CIGARETTES, UNCOMPL 07/13/2015 TITUS REDDY MD Ot H57.9 UNSPECIFIED DISORDER OF EYE AND ADNEXA 07/15/2015 TITUS REDDY MD Ot F17.210 NICOTINE DEPENDENCE, CIGARETTES, UNCOMPL 07/15/2015 TITUS REDDY MD Ot H57.9 UNSPECIFIED DISORDER OF EYE AND ADNEXA 08/11/2015 CAPO HAYWARD SEARCH ENGINE OPTIMIZATION CONSULTANT Ot R60.0 LOCALIZED EDEMA 2015 CAPO HAYWARD R SEARCH ENGINE OPTIMIZATION CONSULTANT Ot R60.0 LOCALIZED EDEMA 09/03/2015 CAPO HAYWARD SEARCH ENGINE OPTIMIZATION CONSULTANT Ot R60.0 LOCALIZED EDEMA 09/15/2015 ROB RAMIREZ MD Ot 784.2 SWELLING IN HEAD NECK 09/15/2015 ROB RAMIREZ MD Ot 785.6 ENLARGEMENT LYMPH NODES 09/15/2015 KAHN, 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 Ot M25.572 PAIN IN LEFT ANKLE AND JOINTS OF LEFT FO 09/15/2015 MAINORALYSIACAPO R SEARCH ENGINE OPTIMIZATION CONSULTANT Ot R60.0 LOCALIZED EDEMA 10/20/2015 MAINOR CAPO Salas SEARCH ENGINE OPTIMIZATION CONSULTANT Ot R60.0 LOCALIZED EDEMA 11/17/2015 ROB RAMIREZ MD Ot 784.2 SWELLING IN HEAD NECK 11/17/2015 ROB RAMIREZ MD Ot 785.6 ENLARGEMENT LYMPH NODES 11/17/2015 DIANNE KAHNNETTYareli Stahl INDUCTION MACHINE OPERATOR Ot M25.572 PAIN IN LEFT ANKLE AND JOINTS OF LEFT FO 11/17/2015 HAYWARDCAPO Red SEARCH ENGINE OPTIMIZATION CONSULTANT Ot R60.0 LOCALIZED EDEMA 11/17/2015 CODY KAM MD Ot E66.01 MORBID (SEVERE) OBESITY DUE TO EXCESS CA 11/17/2015 CODY KAM MD Ot E78.1 PURE HYPERGLYCERIDEMIA 11/17/2015 CODY KAM MD, Ot E78.5 HYPERLIPIDEMIA, UNSPECIFIED 11/17/2015 CODY KAM MD Ot F17.210 NICOTINE DEPENDENCE, CIGARETTES, UNCOMPL 11/17/2015 CODY KAM MD Ot I10 ESSENTIAL (PRIMARY) HYPERTENSION 11/17/2015 CODY KAM MD, Ot I21.4 NON-ST ELEVATION (NSTEMI) MYOCARDIAL INF 11/17/2015 CODY KAM MD Ot I25.119 ATHSCL HEART DISEASE OF [place] COR ART W 11/17/2015 CODY KAM MD, Ot I25.2 OLD MYOCARDIAL INFARCTION 11/17/2015 CODY KAM MD, Ot K21.9 GASTRO-ESOPHAGEAL REFLUX DISEASE WITHOUT 11/17/2015 CODY KAM MD, Ot M48.02 SPINAL STENOSIS, CERVICAL REGION 11/17/2015 CODY KAM MD Ot R40.0 SOMNOLENCE 11/17/2015 CODY KAM MD, Ot T40.2X5A ADVERSE EFFECT OF OTHER OPIOIDS, INITIAL 11/17/2015 CODY KAM MD Ot Z68.43 BODY MASS INDEX (BMI) 50-59.9 , ADULT 11/17/2015 CODY KAM MD, Ot Z91.14 PATIENT'S OTHER NONCOMPLIANCE WITH MEDIC 11/17/2015 CODY KAM MD Ot Z95.5 PRESENCE OF CORONARY ANGIOPLASTY IMPLANT 11/20/2015 CAPO HAYWARD SEARCH ENGINE OPTIMIZATION CONSULTANT Ot R60.0 LOCALIZED EDEMA 11/26/2015 CODY KAM MD Ot E66.01 MORBID (SEVERE) OBESITY DUE TO EXCESS CA 11/26/2015 CODY KAM MD, Ot E78.1 PURE HYPERGLYCERIDEMIA 11/26/2015 CODY KAM MD, Ot E78.5 HYPERLIPIDEMIA, UNSPECIFIED 11/26/2015 CODY KAM MD, Ot F17.210 NICOTINE DEPENDENCE, CIGARETTES, UNCOMPL 11/26/2015 CODY KAM MD, Ot I10 ESSENTIAL (PRIMARY) HYPERTENSION 11/26/2015 CODY KAM MD Ot I21.4 NON-ST ELEVATION (NSTEMI) MYOCARDIAL INF 11/26/2015 CODY KAM MD, Ot I25.119 ATHSCL HEART DISEASE OF [place] COR ART W 11/26/2015 CODY KAM MD, Ot I25.2 OLD MYOCARDIAL INFARCTION 11/26/2015 CODY KAM MD, Ot K21.9 GASTRO-ESOPHAGEAL REFLUX DISEASE WITHOUT 11/26/2015 CODY KAM MD Ot M48.02 SPINAL STENOSIS, CERVICAL REGION 11/26/2015 CODY KAM MD Ot R40.0 SOMNOLENCE 11/26/2015 CODY KAM MD, Ot T40.2X5A ADVERSE EFFECT OF OTHER OPIOIDS, INITIAL 11/26/2015 CODY KAM MD, Ot Z68.43 BODY MASS INDEX (BMI) 50-59.9 , ADULT 11/26/2015 CODY KAM MD, Ot Z91.14 PATIENT'S OTHER NONCOMPLIANCE WITH MEDIC 11/26/2015 CODY KAM MD Ot Z95.5 PRESENCE OF CORONARY ANGIOPLASTY IMPLANT 11/26/2015 CODY KAM MD, Ot E66.01 MORBID (SEVERE) OBESITY DUE TO EXCESS CA 11/26/2015 CODY KAM MD, Ot E78.1 PURE HYPERGLYCERIDEMIA 11/26/2015 CODY KAM MD, Ot E78.5 HYPERLIPIDEMIA, UNSPECIFIED 11/26/2015 CODY KAM MD, Ot F17.210 NICOTINE DEPENDENCE, CIGARETTES, UNCOMPL 11/26/2015 CODY KAM MD, Ot I10 ESSENTIAL (PRIMARY) HYPERTENSION 11/26/2015 CODY KAM MD, Ot I21.4 NON-ST ELEVATION (NSTEMI) MYOCARDIAL INF 11/26/2015 CODY KAM MD, Ot I25.119 ATHSCL HEART DISEASE OF [place] COR ART W 11/26/2015 CODY KAM MD, Ot I25.2 OLD MYOCARDIAL INFARCTION 11/26/2015 CODY KAM MD, Ot K21.9 GASTRO-ESOPHAGEAL REFLUX DISEASE WITHOUT 11/26/2015 CODY KAM MD, Ot M48.02 SPINAL STENOSIS, CERVICAL REGION 11/26/2015 CODY KAM MD, Ot R40.0 SOMNOLENCE 11/26/2015 CODY KAM MD, Ot T40.2X5A ADVERSE EFFECT OF OTHER OPIOIDS, INITIAL 11/26/2015 CODY KAM MD, Ot Z68.43 BODY MASS INDEX (BMI) 50-59.9 , ADULT 11/26/2015 CODY KAM MD, Ot Z91.14 PATIENT'S OTHER NONCOMPLIANCE WITH MEDIC 11/26/2015 CODY KAM MD, Ot Z95.5 PRESENCE OF CORONARY ANGIOPLASTY IMPLANT 09/03/2016 KEYON MORIN MD Ot E66.01 MORBID (SEVERE) OBESITY DUE TO EXCESS CA 09/03/2016 KEYON MORIN MD Ot F17.210 NICOTINE DEPENDENCE, CIGARETTES, UNCOMPL 09/03/2016 KEYON MORIN MD Ot I10 ESSENTIAL (PRIMARY) HYPERTENSION 09/03/2016 KEYON MORIN MD, Ot I25.10 ATHSCL HEART DISEASE OF [place] CORONARY 09/03/2016 KEYON MORIN MD, Ot I25.2 OLD MYOCARDIAL INFARCTION 09/03/2016 KEYON MORIN MD, Ot K21.9 GASTRO-ESOPHAGEAL REFLUX DISEASE WITHOUT 09/03/2016 KEYON MORIN MD Ot M10.9 GOUT, UNSPECIFIED 09/03/2016 KEYON MORIN MD Ot M19.90 UNSPECIFIED OSTEOARTHRITIS, UNSPECIFIED 09/03/2016 KEYON MORIN MD Ot M48.02 SPINAL STENOSIS, CERVICAL REGION 09/03/2016 KEYON MORIN MD Ot M54.2 CERVICALGIA 09/03/2016 KEYON MORIN MD Ot R29.2 ABNORMAL REFLEX 09/03/2016 KEYON MORIN MD Ot Z79.82 ALF (CURRENT) USE OF ASPIRIN 09/03/2016 KEYON MORIN MD Ot Z82.49 FAMILY HX OF ISCHEM HEART DIS AND OTH DI 09/03/2016 KEYON MORIN MD Ot Z90.49 ACQUIRED ABSENCE OF OTHER SPECIFIED PART 09/03/2016 KEYON MORIN MD Ot Z95.5 PRESENCE OF CORONARY ANGIOPLASTY IMPLANT 09/13/2016 ROB RAMIREZ MD Ot M79.662 PAIN IN LEFT LOWER LEG 08/21/2017 YASMANY CAMPBELL MD Ot E66.01 MORBID (SEVERE) OBESITY DUE TO EXCESS CA 08/21/2017 YASMANY CAMPBELL MD Ot F17.210 NICOTINE DEPENDENCE, CIGARETTES, UNCOMPL 08/21/2017 YASMANY CAMPBELL MD Ot I10 ESSENTIAL (PRIMARY) HYPERTENSION 08/21/2017 YASMANY CAMPBELL MD, Ot I25.10 ATHSCL HEART DISEASE OF [place] CORONARY 08/21/2017 YASMANY CAMPBELL MD, Ot I25.2 OLD MYOCARDIAL INFARCTION 08/21/2017 YAMSANY CAMPBELL MD Ot K21.9 GASTRO-ESOPHAGEAL REFLUX DISEASE WITHOUT 08/21/2017 YASMANY CAMPBELL MD Ot S81.001A UNSPECIFIED OPEN WOUND, RIGHT KNEE, INIT 08/21/2017 YASMANY CAMPBELL MD, Ot S89.91XA UNSPECIFIED INJURY OF RIGHT LOWER LEG, I 08/21/2017 YASMANY CAMPBELL MD Ot W18.39XA OTHER FALL ON SAME LEVEL, INITIAL ENCOUN 08/21/2017 YASMANY CAMPBELL MD Ot Z68.43 BODY MASS INDEX (BMI) 50-59.9 , ADULT 08/21/2017 YASMANY CAMPBELL MD Ot Z79.82 ASSEMBLER MOVEMENT (CURRENT) USE OF ASPIRIN 08/21/2017 YASMANY CAMPBELL MD, Ot Z90.49 ACQUIRED ABSENCE OF OTHER SPECIFIED PART 08/21/2017 YASMANY CAMPBELL MD Ot Z91.14 PATIENT'S OTHER NONCOMPLIANCE WITH MEDIC 08/21/2017 YASMANY CAMPBELL MD Ot Z95.5 PRESENCE OF CORONARY ANGIOPLASTY IMPLANT 08/21/2017 ROB RAMIREZ MD Ot 784.2 SWELLING IN HEAD NECK 08/21/2017 ROB RAMIREZ MD Ot 785.6 ENLARGEMENT LYMPH NODES 08/21/2017 DINORA KAHN INDUCTION MACHINE OPERATOR Ot M25.572 PAIN IN LEFT ANKLE AND JOINTS OF LEFT FO 08/21/2017 HAYWARDCAPO Red ZAMZAM Ot R60.0 LOCALIZED EDEMA 08/22/2017 YASMANY CAMPBELL MD Ot E66.01 MORBID (SEVERE) OBESITY DUE TO EXCESS CA 08/22/2017 YASMANY CAMPBELL MD Ot F17.210 NICOTINE DEPENDENCE, CIGARETTES, UNCOMPL 08/22/2017 YASMANY CAMPBELL MD Ot I10 ESSENTIAL (PRIMARY) HYPERTENSION 08/22/2017 YASMANY CAMPBELL MD, Ot I25.10 ATHSCL HEART DISEASE OF [place] CORONARY 08/22/2017 YASMANY CAMPBELL MD, Ot I25.2 OLD MYOCARDIAL INFARCTION 08/22/2017 YASMANY CAMPBELL MD, Ot K21.9 GASTRO-ESOPHAGEAL REFLUX DISEASE WITHOUT 08/22/2017 YASMANY CAMPBELL MD Ot S81.001A UNSPECIFIED OPEN WOUND, RIGHT KNEE, INIT 08/22/2017 YASMANY CAMPBELL MD Ot S89.91XA UNSPECIFIED INJURY OF RIGHT LOWER LEG, I 08/22/2017 YASMANY CAMPBELL MD Ot W18.39XA OTHER FALL ON SAME LEVEL, INITIAL ENCOUN 08/22/2017 YASMANY CAMPBELL MD Ot Z68.43 BODY MASS INDEX (BMI) 50-59.9 , ADULT 08/22/2017 YASMANY CAMPBELL MD Ot Z79.82 ALF (CURRENT) USE OF ASPIRIN 08/22/2017 YASMANY CAMPBELL MD Ot Z90.49 ACQUIRED ABSENCE OF OTHER SPECIFIED PART 08/22/2017 YASMANY CAMPBELL MD Ot Z91.14 PATIENT'S OTHER NONCOMPLIANCE WITH MEDIC 08/22/2017 YASMANY CAMPBELL MD Ot Z95.5 PRESENCE OF CORONARY ANGIOPLASTY IMPLANT Procedures Code [place] [address] URINE DRUG SCREEN (IN-HOUSE ) 01/24/2012 URINEDRUG URINE DRUG SCREEN (CON'F ) 01/26/2012 18718 ROUTINE VENIPUNCTURE 04/30/2012 48966 CMP 04/30/2012 [id number] GFR CALC (RESULT ONLY) 04/30/2012 05438 URINE DRUG SCREEN (IN-HOUSE ) 03/08/2013 26874 US SOFT TISSUE (SPECIFY LOCATION) 03/12/2013 73656 ROUTINE VENIPUNCTURE 07/11/2013 78855 CMP 07/11/2013 7302017 GFR CALC (RESULT ONLY) 07/11/2013 50082 [employer] 01/31/2014 Results Test Result Range Complete blood count (CBC) with automated white blood cell (WBC) differential - 11/17/15 02:00 Blood leukocytes automated count (number/volume) 11.1 10*3/uL 4.3-11.0 Blood erythrocytes automated count (number/volume) 4.86 10*6/uL 4.35-5.85 Venous blood hemoglobin measurement (mass/volume) 15.0 g/dL 13.3-17.7 Blood hematocrit (volume fraction) 45 % 40-54 Automated erythrocyte mean corpuscular volume 92 [foz_us] 80-99 Automated erythrocyte mean corpuscular hemoglobin (mass per erythrocyte) 31 pg 25-34 Automated erythrocyte mean corpuscular hemoglobin concentration measurement ( mass/volume) 34 g/dL 32-36 Automated erythrocyte distribution width ratio 13.2 % 10.0-14.5 Automated blood platelet count (count/volume) 274 10*3/uL 130-400 Automated blood platelet mean volume measurement 10.1 [foz_us] 7.4-10.4 Automated blood neutrophils/100 leukocytes 65 % 42-75 Automated blood lymphocytes/100 leukocytes 26 % 12-44 Blood monocytes/100 leukocytes 9 % 0-12 Automated blood eosinophils/100 leukocytes 1 % 0-10 Automated blood basophils/100 leukocytes 0 % 0-10 Blood neutrophils automated count (number/volume) 7.2 10*3 1.8-7.8 Blood lymphocytes automated count (number/volume) 2.8 10*3 1.0-4.0 Blood monocytes automated count (number/volume) 1.0 10*3 0.0-1.0 Automated eosinophil count 0.1 10*3/uL 0.0-0.3 Automated blood basophil count (count/volume) 0.0 10*3/uL 0.0-0.1 PT panel in platelet poor plasma by coagulation assay - 11/17/15 02:00 Prothrombin time (PT) in platelet poor plasma by coagulation assay 12.6 s 12.2-14.7 INR in platelet poor plasma or blood by coagulation assay 1.0 0.8-1.4 Activated partial thromboplastin time (aPTT) in platelet poor plasma bycoagulation assay - 11/17/15 02:00 Activated partial thromboplastin time (aPTT) in platelet poor plasma bycoagulation assay 27 s 24-35 Comprehensive metabolic panel - 11/17/15 02:00 Serum or plasma sodium measurement (moles/volume) 138 mmol/L 135-145 Serum or plasma potassium measurement (moles/volume) 3.4 mmol/L 3.6-5.0 Serum or plasma chloride measurement (moles/volume) 105 mmol/L 98-107 Carbon dioxide 18 mmol/L 21-32 Serum or plasma anion gap determination (moles/volume) 15 mmol/L 5-14 Serum or plasma urea nitrogen measurement (mass/volume) 14 mg/dL 7-18 Serum or plasma creatinine measurement (mass/volume) 1.21 mg/dL 0.60-1.30 Serum or plasma urea nitrogen/creatinine mass ratio 12 NRG Serum or plasma creatinine measurement with calculation of estimated glomerular filtration rate > NRG Serum or plasma glucose measurement (mass/volume) 154 mg/dL 70-105 Serum or plasma calcium measurement (mass/volume) 9.2 mg/dL 8.5-10.1 Serum or plasma total bilirubin measurement (mass/volume) 0.3 mg/dL 0.1-1.0 Serum or plasma alkaline phosphatase measurement (enzymatic activity/volume) 76 U/L 40-136 Serum or plasma aspartate aminotransferase measurement (enzymatic activity/ volume) 21 U/L 5-34 Serum or plasma alanine aminotransferase measurement (enzymatic activity/volume ) 23 U/L 0-55 Serum or plasma protein measurement (mass/volume) 7.5 g/dL 6.4-8.2 Serum or plasma albumin measurement (mass/volume) 4.4 g/dL 3.2-4.5 Serum or plasma creatine kinase measurement (enzymatic activity/volume) - 11/16 02:00 Serum or plasma creatine kinase measurement (enzymatic activity/volume) 382 U/L 30-200 Serum or plasma creatine kinase MB measurement (enzymatic activity/volume) - 02:00 Serum or plasma creatine kinase MB measurement (enzymatic activity/volume) 2.9 ng/mL <6.6 Serum or plasma troponin i.cardiac measurement (mass/volume) - 11/17/15 02:00 Serum or plasma troponin i.cardiac measurement (mass/volume) < ng/ mL <0.30 Serum or plasma amylase measurement (enzymatic activity/volume) - 11/17/15 02: 00 Serum or plasma amylase measurement (enzymatic activity/volume) 43 U /L 25-125 Lipase - 11/17/15 02:00 Lipase 5 U/L 8-78 Serum or plasma lithium measurement (moles/volume) - 11/17/15 02:00 BNP level 64.6 pg/mL <100.0 Complete blood count (CBC) with automated white blood cell (WBC) differential - 11/17/15 08:29 Blood leukocytes automated count (number/volume) 12.2 10*3/uL 4.3-11.0 Blood erythrocytes automated count (number/volume) 4.75 10*6/uL 4.35-5.85 Venous blood hemoglobin measurement (mass/volume) 14.9 g/dL 13.3-17.7 Blood hematocrit (volume fraction) 44 % 40-54 Automated erythrocyte mean corpuscular volume 93 [foz_us] 80-99 Automated erythrocyte mean corpuscular hemoglobin (mass per erythrocyte) 31 pg 25-34 Automated erythrocyte mean corpuscular hemoglobin concentration measurement ( mass/volume) 34 g/dL 32-36 Automated erythrocyte distribution width ratio 13.3 % 10.0-14.5 Automated blood platelet count (count/volume) 273 10*3/uL 130-400 Automated blood platelet mean volume measurement 9.7 [foz_us] 7.4-10.4 Automated blood neutrophils/100 leukocytes 73 % 42-75 Automated blood lymphocytes/100 leukocytes 17 % 12-44 Blood monocytes/100 leukocytes 10 % 0-12 Automated blood eosinophils/100 leukocytes 0 % 0-10 Automated blood basophils/100 leukocytes 0 % 0-10 Blood neutrophils automated count (number/volume) 8.9 10*3 1.8-7.8 Blood lymphocytes automated count (number/volume) 2.1 10*3 1.0-4.0 Blood monocytes automated count (number/volume) 1.2 10*3 0.0-1.0 Automated eosinophil count 0.0 10*3/uL 0.0-0.3 Automated blood basophil count (count/volume) 0.0 10*3/uL 0.0-0.1 Comprehensive metabolic panel - 11/17/15 08:29 Serum or plasma sodium measurement (moles/volume) 137 mmol/L 135-145 Serum or plasma potassium measurement (moles/volume) 5.6 mmol/L 3.6-5.0 Serum or plasma chloride measurement (moles/volume) 104 mmol/L 98-107 Carbon dioxide 24 mmol/L 21-32 Serum or plasma anion gap determination (moles/volume) 9 mmol/L 5-14 Serum or plasma urea nitrogen measurement (mass/volume) 13 mg/dL 7-18 Serum or plasma creatinine measurement (mass/volume) 1.11 mg/dL 0.60-1.30 Serum or plasma urea nitrogen/creatinine mass ratio 12 NRG Serum or plasma creatinine measurement with calculation of estimated glomerular filtration rate > NRG Serum or plasma glucose measurement (mass/volume) 122 mg/dL 70-105 Serum or plasma calcium measurement (mass/volume) 8.9 mg/dL 8.5-10.1 Serum or plasma total bilirubin measurement (mass/volume) 0.5 mg/dL 0.1-1.0 Serum or plasma alkaline phosphatase measurement (enzymatic activity/volume) 74 U/L 40-136 Serum or plasma aspartate aminotransferase measurement (enzymatic activity/ volume) 59 U/L 5-34 Serum or plasma alanine aminotransferase measurement (enzymatic activity/volume ) 25 U/L 0-55 Serum or plasma protein measurement (mass/volume) 7.2 g/dL 6.4-8.2 Serum or plasma albumin measurement (mass/volume) 4.2 g/dL 3.2-4.5 Serum or plasma troponin i.cardiac measurement (mass/volume) - 11/17/15 08:29 Serum or plasma troponin i.cardiac measurement (mass/volume) 2.10 ng /mL <0.30 Lipid 1996 panel - 11/17/15 08:29 Serum or plasma triglyceride measurement (mass/volume) 229 mg/dL <150 Serum or plasma cholesterol measurement (mass/volume) 222 mg/dL < 200 Serum or plasma cholesterol in HDL measurement (mass/volume) 29 mg/ dL 40-60 Cholesterol in LDL [mass/volume] in serum or plasma by direct assay 152 mg/dL 1-129 Serum or plasma cholesterol in VLDL measurement (mass/volume) 46 mg/ dL 5-40 Activated partial thromboplastin time (aPTT) in platelet poor plasma bycoagulation assay - 11/17/15 08:30 Activated partial thromboplastin time (aPTT) in platelet poor plasma bycoagulation assay 29 s 24-35 Automated blood complete blood count (hemogram) panel - 11/17/15 10:40 Blood leukocytes automated count (number/volume) 12.8 10*3/uL 4.3-11.0 Blood erythrocytes automated count (number/volume) 4.79 10*6/uL 4.35-5.85 Venous blood hemoglobin measurement (mass/volume) 14.8 g/dL 13.3-17.7 Blood hematocrit (volume fraction) 45 % 40-54 Automated erythrocyte mean corpuscular volume 93 [foz_us] 80-99 Automated erythrocyte mean corpuscular hemoglobin (mass per erythrocyte) 31 pg 25-34 Automated erythrocyte mean corpuscular hemoglobin concentration measurement ( mass/volume) 33 g/dL 32-36 Automated erythrocyte distribution width ratio 13.4 % 10.0-14.5 Automated blood platelet count (count/volume) 260 10*3/uL 130-400 Automated blood platelet mean volume measurement 10.0 [foz_us] 7.4-10.4 LIPID PANEL - 02/17/17 14:56 CHOLESTEROL, TOTAL 235 mg/dL <200 HDL CHOLESTEROL 23 mg/dL >40 TRIGLYCERIDES 336 mg/dL <150 LDL-CHOLESTEROL 160 mg/dL (calc) NRG CHOL/HDLC RATIO 10.2 (calc) <5.0 NON HDL CHOLESTEROL 212 mg/dL (calc) <130 Complete blood count (CBC) with automated white blood cell (WBC) differential - 08/21/17 00:15 Blood leukocytes automated count (number/volume) 9.7 10*3/uL 4.3-11.0 Blood erythrocytes automated count (number/volume) 5.06 10*6/uL 4.35-5.85 Venous blood hemoglobin measurement (mass/volume) 16.0 g/dL 13.3-17.7 Blood hematocrit (volume fraction) 46 % 40-54 Automated erythrocyte mean corpuscular volume 92 [foz_us] 80-99 Automated erythrocyte mean corpuscular hemoglobin (mass per erythrocyte) 32 pg 25-34 Automated erythrocyte mean corpuscular hemoglobin concentration measurement ( mass/volume) 35 g/dL 32-36 Automated erythrocyte distribution width ratio 13.0 % 10.0-14.5 Automated blood platelet count (count/volume) 300 10*3/uL 130-400 Automated blood platelet mean volume measurement 10.2 [foz_us] 7.4-10.4 Automated blood neutrophils/100 leukocytes 61 % 42-75 Automated blood lymphocytes/100 leukocytes 30 % 12-44 Blood monocytes/100 leukocytes 8 % 0-12 Automated blood eosinophils/100 leukocytes 1 % 0-10 Automated blood basophils/100 leukocytes 0 % 0-10 Blood neutrophils automated count (number/volume) 5.9 10*3 1.8-7.8 Blood lymphocytes automated count (number/volume) 2.9 10*3 1.0-4.0 Blood monocytes automated count (number/volume) 0.8 10*3 0.0-1.0 Automated eosinophil count 0.1 10*3/uL 0.0-0.3 Automated blood basophil count (count/volume) 0.0 10*3/uL 0.0-0.1 Comprehensive metabolic panel - 08/21/17 00:15 Serum or plasma sodium measurement (moles/volume) 143 mmol/L 135-145 Serum or plasma potassium measurement (moles/volume) 3.6 mmol/L 3.6-5.0 Serum or plasma chloride measurement (moles/volume) 110 mmol/L 98-107 Carbon dioxide 23 mmol/L 21-32 Serum or plasma anion gap determination (moles/volume) 10 mmol/L 5-14 Serum or plasma urea nitrogen measurement (mass/volume) 8 mg/dL 7-18 Serum or plasma creatinine measurement (mass/volume) 1.04 mg/dL 0.60-1.30 Serum or plasma urea nitrogen/creatinine mass ratio 8 NRG Serum or plasma creatinine measurement with calculation of estimated glomerular filtration rate > NRG Serum or plasma glucose measurement (mass/volume) 95 mg/dL 70-105 Serum or plasma calcium measurement (mass/volume) 9.4 mg/dL 8.5-10.1 Serum or plasma total bilirubin measurement (mass/volume) 0.5 mg/dL 0.1-1.0 Serum or plasma alkaline phosphatase measurement (enzymatic activity/volume) 97 U/L 40-136 Serum or plasma aspartate aminotransferase measurement (enzymatic activity/ volume) 25 U/L 5-34 Serum or plasma alanine aminotransferase measurement (enzymatic activity/volume ) 44 U/L 0-55 Serum or plasma protein measurement (mass/volume) 7.6 g/dL 6.4-8.2 Serum or plasma albumin measurement (mass/volume) 4.2 g/dL 3.2-4.5 Magnesium - 08/21/17 00:15 Magnesium 2.1 mg/dL 1.8-2.4 Serum or plasma C reactive protein measurement (mass/volume) - 08/21/17 00:15 Serum or plasma C reactive protein measurement (mass/volume) 0.31 mg /dL 0.00-0.50 Blood lactic acid measurement (moles/volume) - 08/21/17 01:12 Blood lactic acid measurement (moles/volume) 0.83 mmol/L 0.50-2.00 Bacterial blood culture - 08/21/17 01:12 QUANTITY OF GROWTH Isolated NRG Bacterial blood culture [id number] NRG Bacterial blood culture - 08/21/17 01:30 Bacterial blood culture NG NRG Gram stain microscopy - 08/21/17 02:25 GRAM STAIN RESULT FEW WBC'S, NO BACTERIA OBSERVED NRG Bacteria identification in wound by culture - 08/21/17 02:25 Bacteria identification in wound by culture [id number] NRG FREE TEXT EXTERNAL SENSITIVITY REPORTED 08/23/17 8:05 NRG QUANTITY OF GROWTH Scant Growth NRG Bacterial susceptibility panel - 08/21/17 02:25 Oxacillin susceptibility test by minimum inhibitory concentration < = NRG Gentamicin susceptibility test by minimum inhibitory concentration < = NRG Clindamycin susceptibility test by minimum inhibitory concentration <= NRG Erythromycin susceptibility test by minimum inhibitory concentration <= NRG Trimethoprim/sulfamethoxazole susceptibility test by minimum inhibitoryconcentration S NRG Vancomycin susceptibility test by minimum inhibitory concentration 1 NRG Levofloxacin susceptibility test by minimum inhibitory concentration <= NRG Rifampin susceptibility test by minimum inhibitory concentration <= NRG Tetracycline susceptibility test by minimum inhibitory concentration <= NRG Encounters ACCT No. Visit Date/Time Discharge Status Pt. Type Provider Facility Loc./Unit Complaint [id number] 02/14/2014 10:17:00 02/14/2014 23:59:59 CLS Outpatient ROB RAMIREZ MD [id number] 01/27/2014 14:36:00 01/27/2014 23:59:59 CLS Outpatient ROB RAMIREZ MD [id number] 11/07/2013 16:13:00 11/07/2013 23:59:59 CLS Outpatient ROB RAMIREZ MD [id number] 07/11/2013 14:59:00 07/11/2013 23:59:59 CLS Outpatient ROB RAMIREZ MD [id number] 04/11/2013 16:47:00 04/11/2013 23:59:59 CLS Outpatient ROB RAMIREZ MD [id number] 03/08/2013 09:11:00 03/08/2013 23:59:59 CLS Outpatient ROB RAMIREZ MD [id number] 03/08/2013 09:11:00 03/08/2013 23:59:59 CLS Outpatient ROB RAMIREZ MD [id number] 02/19/2013 18:47:00 02/19/2013 23:59:[address] [id number] 12/10/2012 13:53:00 12/10/2012 23:59:59 CLS Outpatient ROB RAMIREZ MD [id number] 08/21/2012 11:13:00 08/21/2012 23:59:59 CLS Outpatient ROB RAMIREZ MD [id number] 04/30/2012 10:11:00 04/30/2012 23:59:59 CLS Outpatient ROB RAMIREZ MD [id number] 01/24/2012 17:57:00 01/24/2012 23:59:59 CLS Outpatient ROB RAMIREZ MD [id number] 10/03/2011 10:36:00 10/03/2011 23:59:59 CLS Outpatient [id number] 04/30/2012 10:11:00 Document Registration [id number] 08/20/2017 23:53:00 08/21/2017 03:31:00 DIS Emergency YASMANY CAMPBELL MD [facility] ER NUMB LEGS FALL AT HOME [id number] 09/15/2016 14:30:00 09/15/2016 23:59:59 CLS Preadmit ROB RAMIREZ MD [facility] RAD TENDERNESS OF LEFT CALF M79.662 [id number] 09/03/2016 11:02:00 09/03/2016 12:35:00 DIS Emergency KEYON MORIN MD [facility] ER L SIDE NECK/SHOULDER PAIN [id number] 11/17/2015 10:03:00 11/17/2015 14:15:00 DIS Inpatient CODY KAM MD [facility] ICU CHEST PAIN;UNCONTROLLED HTN [id number] 08/10/2015 10:49:00 08/10/2015 23:59:59 CLS Outpatient CAPO HAYWARD ZAMZAM [facility] RAD FACIAL EDEMA [id number] 07/13/2015 22:39:00 07/13/2015 23:48:00 DIS Emergency TITUS REDDY MD [facility] ER R EYE FOREIGN OBJECT [id number] 04/01/2015 09:05:00 04/01/2015 23:59:59 CLS Outpatient 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, 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 [facility] RAD LEFT ANKLE PAIN [id number] 03/13/2015 20:54:00 03/14/2015 12:02:00 DIS Inpatient June SOFIA MD [facility] CSD CHEST PAIN, DIARRHEA [id number] 03/08/2015 12:30:00 03/08/2015 17:14:00 DIS Inpatient LADAN AKINS MD [facility] ICU CHEST PAIN R/O [id number] 06/12/2014 15:52:00 06/12/2014 19:52:00 DIS Emergency MARLEEN MENDEZ DO [facility] ER NECK PAIN [id number] 03/12/2013 15:04:00 03/12/2013 23:59:59 CLS Outpatient ROB RAMIREZ MD [facility] RAD CHRONIC SWELLING LEFT SIDE OF FACE [id number] 07/23/2012 05:40:00 07/23/2012 08:23:00 DIS Emergency [id number] 09/14/2017 15:20:00 09/14/2017 23:59:59 CLS Outpatient ROB RAMIREZ MD [facility] [id number] 02/17/2017 14:40:00 Document Registration
== END 2018-01-15 18:50 | disposition home or self-care (01) ==
LOC: EDUNIT# 15:16 → ER 15:19
DX: M47.812 Spondylosis without myelopathy or radiculopathy, cervical region (principal); M47.816 Spondylosis without myelopathy or radiculopathy, lumbar region; I25.10 Atherosclerotic heart disease of native coronary artery without angina pectoris; I25.2 Old myocardial infarction; I10 Essential (primary) hypertension; K21.9 Gastro-esophageal reflux disease without esophagitis; E66.01 Morbid (severe) obesity due to excess calories; M10.9 Gout, unspecified; Z82.49 Family history of ischemic heart disease and other diseases of the circulatory system; Z87.19 Personal history of other diseases of the digestive system; Z79.82 Long term (current) use of aspirin; Z77.22 Contact with and (suspected) exposure to environmental tobacco smoke (acute) (chronic); Z90.49 Acquired absence of other specified parts of digestive tract; Z95.5 Presence of coronary angioplasty implant and graft
CPT/HCPCS: 36415; 72125; 72131; 80053; 83036; 85025

== ENCOUNTER 2018-03-12 12:11 | Outpatient (CLI) | payer MEDICARE ==
[~2018-03-12] VITALS: Ht 190.5 cm; Wt 195.0 kg
[~2018-03-12 12:11] MED LIST changes: -AMLO10TA6 PO; +AMLO10TA7 PO; -GABA600T2 PO; +GBPN600T PO
[2018-03-12] MEDS ORDERED: ZOLP10TA5 PO (13:29)
[2018-03-12] MEDS ORDERED: TICA90TA PO (13:29)
[2018-03-12] MEDS ORDERED: NAPR-915 PO (13:29)
[2018-03-12] MEDS ORDERED: MORP-33 PO (13:29)
== END 2018-03-12 14:05 | disposition home or self-care (01) ==
LOC: PREOP 12:11
PROVIDERS: ATTEND Orthopaedic Surgery
DX: Z01.818 Encounter for other preprocedural examination (principal)

== ENCOUNTER 2018-03-15 07:30 | Inpatient (IN) | payer MEDICARE ==
[~2018-03-15] VITALS: Ht 190.5 cm; Wt 188.7 kg
[~2018-03-15 07:30] MED LIST changes: +MORP-33 PO; +NAPR-915 PO; +ZOLP10TA5 PO
[2018-03-22] MEDS ORDERED: LISI-556 PO (13:05)
[2018-03-22] MEDS ORDERED: AMLO10TA7 PO (13:05)
[2018-04-02 08:10] VITALS: BP 124/59
[2018-04-02] MEDS ORDERED: ceFAZolin 2 GM IV Premixed 50 ML IV ONE (08:15)
[2018-04-02] MEDS: LACTATED RINGERS 1,000 ML IV PRN ×2 (08:30→10:55)
[2018-04-02] MEDS ORDERED: ceFAZolin 2 GM IV Premixed 50 ML ONE (08:45)
[2018-04-02] MEDS ORDERED: fentaNYL INJECTION 100 MCG/2 ML AMP ONE (08:46)
[2018-04-02] MEDS ORDERED: NEO/POLY/BAC (NEOSPORIN) OINT 15 GM TUBE ONE (09:05)
[2018-04-02] MEDS ORDERED: VANCOMYCIN 1000 MG/VIAL ONE (09:05)
[2018-04-02] MEDS ORDERED: BUP/EPI 0.5% 1:200,000 (SENSORCAINE) 30 ML VIAL ONE (09:05)
[2018-04-02] MEDS ORDERED: ROCURONIUM 10 MG/ML 5 ML SYRINGE IV ONE ×2 (09:15→10:29)
[2018-04-02] MEDS ORDERED: fentaNYL INJECTION 250 MCG/5 ML AMP ONE (09:15)
[2018-04-02] MEDS ORDERED: ONDANSETRON 4 MG/2 ML (SDV) Z0FRAN ONE (09:15)
[2018-04-02] MEDS ORDERED: proPOfol 200 MG/20 ML (DIPRIVAN) VIAL IV ONE (09:15)
[2018-04-02] MEDS ORDERED: SEVOFLURANE (ULTANE) 15 ML INHAL SOLN ONE ×2 (09:15→11:57)
[2018-04-02] MEDS ORDERED: LIDOCAINE PF 2% 5 ML (XYLOCAINE) VIAL ONE (09:15)
[2018-04-02] MEDS ORDERED: MIDAZOLAM 2 MG/2 ML (VERSED) VIAL ONE (09:15)
[2018-04-02] MEDS ORDERED: GLYCOPYRROLATE 0.2 MG/ML (ROBINUL) 2 ML VIAL ONE (09:15)
[2018-04-02] MEDS ORDERED: PROPOFOL INJECTION 50 ML IV ONE ×2 (09:15→10:16)
[2018-04-02] MEDS ORDERED: SUCCINYLCHOLINE INJ 100 MG/5 ML SYR ONE ×2 (09:15→09:18)
[2018-04-02] MEDS ORDERED: NEOSTIGMINE 1 MG/ML 5 ML SYRINGE ONE (09:15)
[2018-04-02] MEDS ORDERED: BACITRACIN 100,000 UNIT/NS 1000 ML POUR BOTTLE IR ONE ×2 (10:15)
[2018-04-02] MEDS ORDERED: VANCOMYCIN INJECTION 1,000 MG in NS (IVPB) 250 ML IV SCH (10:55)
[2018-04-02] MEDS ORDERED: morphine INJ 10 MG/ML 1ML (SYR OR VIAL) ONE (11:59)
[2018-04-02 12:00] VITALS: BP 117/71
[2018-04-02] MEDS ORDERED: ONDANSETRON 4 MG/2 ML (SDV) Z0FRAN IVP PRN (12:00)
[2018-04-02] MEDS ORDERED: morphine INJ 10 MG/ML 1ML (SYR OR VIAL) IVP ONE (12:00)
[2018-04-02] MEDS ORDERED: HYDROmorphone 2 MG/ML VIAL (DILAUDID) IV ONE (12:00)
[2018-04-02] MEDS ORDERED: METOCLOPRAMIDE INJ 10 MG/2 ML (REGLAN) IV PRN (12:15)
[2018-04-02] MEDS ORDERED: METOCLOPRAMIDE 10 MG (REGLAN) TAB PO PRN (12:15)
[2018-04-02] MEDS ORDERED: ACETAMINOPHEN 325 MG TABLET PO PRN (12:15)
[2018-04-02] MEDS ORDERED: ONDANSETRON 4 MG/2 ML (SDV) Z0FRAN IV PRN (12:15)
[2018-04-02] MEDS: APAP 300 MG/CODEINE 30 MG (TYLENOL #3) TAB PO PRN ×2 (13:27→16:56)
[2018-04-02] MEDS ORDERED: PHENYLEPHRINE 100 MCG/ML 10 ML (ANESTHESIA) SYR ONE (13:33)
--- NOTE | 2018-04-02 13:37 | Anesthesia-General Post-Op ---
General Patient Condition Mental Status/LOC: Same as Preop Cardiovascular: Satisfactory Nausea/Vomiting: Absent Respiratory: Satisfactory Pain: Controlled Complications: Absent Post Op Complications Complications None Follow Up Care/Instructions Patient Instructions None needed. Anesthesia/Patient Condition Patient Condition Patient is doing well, no complaints, stable vital signs, no apparent adverse anesthesia problems. No complications reported per nursing. EDEN SHARMA CRNA Apr 02, 2018 13:37
[2018-04-02] MEDS: HYDROcodone/APAP 5 MG/325 MG (LORTAB) TAB PO PRN ×2 (14:08→18:23)
[2018-04-02] MEDS: oxyCODONE/APAP 5/325MG (PERCOCET 5) TABLET PO PRN (15:40)
[2018-04-02] MEDS ORDERED: FLU QUADRIvalent (5+ YOA) 2018-2019 (AFLURIA) 0.5 ML IM ONE (16:00)
[2018-04-02] MEDS ORDERED: ceFAZolin INJECTION 1,000 MG in WATER (STERILE) FOR INJECTION 10 ML IV SCH (16:15)
[2018-04-02 16:23] VITALS: BP 110/71
[2018-04-02] MEDS: ceFAZolin 2 GM IV Premixed 50 ML IV SCH (16:56)
[2018-04-02 19:37] VITALS: BP 120/64
[2018-04-03] VITALS: BP 113/52
[2018-04-03] MEDS: ceFAZolin 2 GM IV Premixed 50 ML IV SCH ×2 (01:30→08:26)
[2018-04-03] MEDS: APAP 300 MG/CODEINE 30 MG (TYLENOL #3) TAB PO PRN (01:35)
[2018-04-03 03:33] VITALS: BP 130/72
[2018-04-03 06:03] LABS: HEMOGLOBIN 14.4 G/DL (13.3-17.7); MEAN PLATELET VOLUME 9.4 FL (7.4-10.4); RED CELL DISTRIBUTION WIDTH 13.4 % (10.0-14.5); WHITE BLOOD COUNT 19.1 10^3/uL (4.3-11.0)
[2018-04-03] MEDS: MULTIVIT W/MINERALS TAB (THERAGRAN M) PO SCH (06:17)
[2018-04-03 06:25] LABS: ALANINE AMINOTRANSFERASE 18 U/L (0-55); ALBUMIN 3.9 GM/DL (3.2-4.5); ALKALINE PHOSPHATASE 77 U/L (40-136); BILIRUBIN,TOTAL 0.5 MG/DL (0.1-1.0); BUN/CREATININE RATIO 20; CALCIUM 9.7 MG/DL (8.5-10.1); CARBON DIOXIDE 24 MMOL/L (21-32); CHLORIDE 105 MMOL/L (98-107); CREATININE SERUM 1.18 MG/DL (0.60-1.30); GFR ESTIMATED > 60; GLUCOSE 114 MG/DL (70-105); POTASSIUM 4.5 MMOL/L (3.6-5.0); SODIUM 140 MMOL/L (135-145); TOTAL PROTEIN 7.3 GM/DL (6.4-8.2)
--- NOTE | 2018-04-03 07:54 | NUR ---
CALLED RAFAL PATRICIA. HE WILL ADDRESS THE PATIENT'S HOME MEDS AND PAIN MEDICATION.
[2018-04-03 08:03] VITALS: BP 141/83
--- NOTE | 2018-04-03 09:30 | Physical Therapy Evaluation ---
PT Evaluation-General Medical Diagnosis Admission Date Apr 02, 2018 at 07:44 Medical Diagnosis: Myelopathy Onset Date: Apr 02, 2018 Therapy Diagnosis Therapy Diagnosis: decreased mobility, weakness, decreased ROM Height/Weight Height (Feet): 6 Height (Inches): 3.00 Weight (Pounds): 416 Weight (Ounces): 0.0 Precautions Precautions/Isolations: Fall Prevention, Standard Precautions Weight Bear Status Right Lower Extremity: Right Full Weight Bearing Left Lower Extremity: Left Full Weight Bearing Referral Physician: Jose Luis Waldrop Reason for Referral: Evaluation/Treatment Medical History Pertinent Medical History: CAD, Smoking Additional Medical History Obesity, DDD, Myelopathy Reviewed History: Yes Social History Home: Single Level Current Living Status: Other Family Entry Into Home: Stairs With Railing Prior/Core FIM Prior Level of Function Therapy Code Descriptions/Definitions Functional Dunn Measure: 0=Not Assessed/NA 4=Minimal Assistance 1=Total Assistance 5=Supervision or Setup 2=Maximal Assistance 6=Modified Dunn 3=Moderate Assistance 7=Complete Dunn Therapy Quality Codes: 6 Independent with activity with or without an assistive device 5 Patient requires set up or clean up by helper. Patient completes activity by themselves 4 Supervision or touching assist (CGA). [place] provide cues , steadying assist 3 The helper provides less than half the effort to complete the activity 2 The helper provides more than half the effort to complete the activity 1 Dependent. The helper does all the effort to complete an activity 7 Patient refused to complete or attempt activity 9 The patient did not perform the activity before the current illness or injury 88 Not attempted due to Medical conditions or safety concerns Functional Abilities and Goals: Independent: Patient completed the activities by him/herself, with or without an assistive device, with no assistance from a helper. Needed Some Help: Patient needed partial assistance from another person to complete activities. Dependent: A helper completed the activities for the patient. Unknown: Not Applicable: Stairs: Dependent Pt reports that he was crawling around to amb on hands and knees since . Pt would crawl to porch, slide onto chair, then slide into his friends car and his friend would take him to his appointments. Before he was amb with 2 canes PT Evaluation-Current Subjective Pt in bed and reports he will not be able to walk. Pt agrees to PT. Pt also reports he would like more pain medication but was told that he already reached his max for the day. Pain Numeric Pain Scale: 10-Worst Possible Pain Location Body Site: Back Objective Patient Orientation: Person, Place, Situation, Normal For Age Attachments: SCD's, Haddad Catheter, IV ROM/Strength ROM Lower Extremities Decreased ROM B LE Integumentary/Posture Bladder Incontinence: Haddad Cath Neuromuscular (Tone, Coordination, Reflexes) Increased tone in B LE, Clonus in R LE Sensory Vision: Functional Hearing: Functional Sensation Right Lower Extremit: Impaired Sensation Left Lower Extremity: Impaired Transfers Therapy Code Descriptions/Definitions Functional Dunn Measure: 0=Not Assessed/NA 4=Minimal Assistance 1=Total Assistance 5=Supervision or Setup 2=Maximal Assistance 6=Modified Dunn 3=Moderate Assistance 7=Complete Dunn Transfers (B, C, W/C) (FIM): 1 Scootin Supine to/from Sit: 1 Sit to/from Stand: 1 Balance Sitting Static: Good Sitting Dynamic: Good Standing Static: Poor Assessment/Needs Pt required dependent A x2 with bed mobility. Pt attempted standing dependent x2 to FWW, was unsuccessful and had to put pt back in bed. Pt yelled out in pain during most of tx. Pt is back in bed sitting up with all needs met. Nurse notified of pt request for sprite and IV alarm. Rehab Potential: Guarded Post Rehab Potential-Barriers: co-morbidities, prior level of function PT Short Term Goals Short Term Goals Time Frame: Apr 10, 2018 Transfers (B,C,W/C) (FIM): 2 Gait (FIM): 0 Distance (FIM): 0=does not occure Gait Distance Comment: 0 Gait Level of Assist: 0 Gait Assistive Device: FWW PT Prison Goals Technical Internship Goals PT Technical Internship Goals Time Frame: May 01, 2018 Transfers (B,C,W/C) (FIM): 3 Gait (FIM): 1 Gait distance (FIM): 1=up to 49 ft Distance: 25' Gait Level of Assist: 3 Gait Assistive Device: FWW PT Plan Problem List Problem List: Activity Tolerance, Functional Strength, Safety, Balance, Gait, Transfer, Bed Mobility, ROM Treatment/Plan Treatment Plan: Continue Plan of Care Treatment Plan: Bed Mobility, Education, Functional Activity Nina, Functional Strength, Gait, Safety, Therapeutic Exercise, Transfers Treatment Duration: May 01, 2018 Frequency: 11 times per week Estimated Hrs Per Day: .25 hour per day Patient and/or Family Agrees t: Yes Safety Risks/Education Patient Education: Transfer Techniques, Steps, Correct Positioning, Safety Issues Teaching Recipient: Patient Teaching Methods: Demonstration, Discussion Discharge Recommendations Therapy D/C Recommendations: Acute Rehab, Fpc Placement, Long-Term (TCU/NH) Time/GCodes Time In: 845 Time Out: 903 Total Billed Treatment Time: 18 Total Billed Treatment 1 visit EV 18 min ROSHNI REAL PT Apr 03, 2018 09:30
[2018-04-03] MEDS: morphine ER 15 MG (MS CONTIN) TAB PO SCH ×2 (10:22→20:48)
--- NOTE | 2018-04-03 10:35 | Occupational Therapy Eval ---
OT Evaluation-General/PLF Medical Diagnosis Admission Date Apr 02, 2018 at 07:44 Medical Diagnosis: Myelopathy Onset Date: Apr 02, 2018 Therapy Diagnosis Therapy Diagnosis: impaired self care skills Height/Weight Height (Feet): 6 Height (Inches): 3.00 Weight (Pounds): 416 Weight (Ounces): 0.0 Precautions Precautions/Isolations: Fall Prevention, Standard Precautions Safety Interventions: Reorient-PRN Referral Physician: Jose Luis Waldrop Medical History Pertinent Medical History: CAD, Smoking Reviewed History: Yes Social History Home: Multilevel (stays on the main level) Current Living Status: Other Family (dad) Entry Into Home: Stairs With Railing ADL-Prior Level of Function Therapy Code Descriptions/Definitions Functional Bailey Measure: 0=Not Assessed/NA 4=Minimal Assistance 1=Total Assistance 5=Supervision or Setup 2=Maximal Assistance 6=Modified Bailey 3=Moderate Assistance 7=Complete Bailey Therapy Quality Codes: 6 Independent with activity with or without an assistive device 5 Patient requires set up or clean up by helper. Patient completes activity by themselves 4 Supervision or touching assist (CGA). [place] provide cues , steadying assist 3 The helper provides less than half the effort to complete the activity 2 The helper provides more than half the effort to complete the activity 1 Dependent. The helper does all the effort to complete an activity 7 Patient refused to complete or attempt activity 9 The patient did not perform the activity before the current illness or injury 88 Not attempted due to Medical conditions or safety concerns Functional Abilities and Goals: Independent: Patient completed the activities by him/herself, with or without an assistive device, with no assistance from a helper. Needed Some Help: Patient needed partial assistance from another person to complete activities. Dependent: A helper completed the activities for the patient. Unknown: Not Applicable: ADL PLOF Comments Pt states he has been mostly bedridden since . Has been unable to walk, so has been crawling. Pt states he has a friend who does assist as needed. Self Care: Needed Some Help DME/Equipment: Shower OT Current Status Subjective Pt in bed, reports back pain 9/10 with movement. States it is 4/10 at rest. Mental Status/Objective Patient Orientation: Person, Place, Situation Attachments: Haddad Catheter Current Glasses/Contacts: Yes (reading) Hearing Aids: No Dentures/Partials: No Hand Dominance: Right Upper Extremity ROM Unable to fully assess at this time secondary to pain. Upper Extremity Coordination Fair ADL-Treatment ADL-Current Pt washed face with set up. Pt states he just tried to stand up and could not complete. Declined to attempt any mobility at this time. Education provided regarding role of OT and plan of care. Pt states understanding of education. Pt resting in bed with needs met after session. Therapy Code Descriptions/Definitions Functional Bailey Measure: 0=Not Assessed/NA 4=Minimal Assistance 1=Total Assistance 5=Supervision or Setup 2=Maximal Assistance 6=Modified Bailey 3=Moderate Assistance 7=Complete Bailey Therapy Quality Codes: 6 Independent with activity with or without an assistive device 5 Patient requires set up or clean up by helper. Patient completes activity by themselves 4 Supervision or touching assist (CGA). [place] provide cues , steadying assist 3 The helper provides less than half the effort to complete the activity 2 The helper provides more than half the effort to complete the activity 1 Dependent. The helper does all the effort to complete an activity 7 Patient refused to complete or attempt activity 9 The patient did not perform the activity before the current illness or injury 88 Not attempted due to Medical conditions or safety concerns Grooming (FIM): 5 Education OT Patient Education: Rehab process Teaching Recipient: Patient Teaching Methods: Discussion Response to Teaching: Verbalize Understanding OT Short Term Goals Short Term Goals Transfers (B,C,W/C) (FIM): 2 1=Demonstrate adherence to instructed precautions during ADL tasks. 2=Patient will verbalize/demonstrate understanding of assistive devices/ modifications for ADL. 3=Patient will improve strength/tolerance for activity to enable patient to perform ADL's. OT Color Printer Operator Goals Skilled Nursing Goals Time Frame: Apr 24, 2018 Eating (FIM): 6 Grooming(FIM): 6 Bathing(FIM): 3 Upper Body Dressing(FIM): 5 Lower Body Dressing(FIM): 3 Toilet/Commode Transfer(FIM): 4 Additional Goals: 1-Demonstrate ADL Tasks, 2-Verbalize Understanding, 3- ImproveStrength/Nina 1=Demonstrate adherence to instructed precautions during ADL tasks. 2=Patient will verbalize/demonstrate understanding of assistive devices/ modifications for ADL. 3=Patient will improve strength/tolerance for activity to enable patient to perform ADL's. OT Education/Plan Problem List/Assessment Assessment: Decreased Activ Tolerance, Decreased UE Strength, Dependent Transfers, Impaired Self-Care Skills Pt to benefit from skilled OT intervention for ADL training, transfers, strengthening, and adaptive equipment training as needed to increase level of independence and allow safe discharge plan. Discharge Recommendations Plan/Recommendations: Continue POC Treatment Plan/Plan of Care Treatment,Training & Education: Yes Patient would benefit from OT for education, treatment and training to promote independence in ADL's, mobility, safety and/or upper extremity function for ADL' s. Plan of Care: ADL Retraining, Functional Mobility, UE Funct Exercise/Act Treatment Duration: Apr 24, 2018 Frequency: 5 times per week Estimated Hrs Per Day: .25 hour per day Rehab Potential: Guarded Time/GCodes Start Time: 09:25 Stop Time: 09:44 Total Time Billed (hr/min): 19 Billed Treatment Time 1 visit, RASHEEDA(19minutes) WES MARIN OT Apr 03, 2018 10:35
--- NOTE | 2018-04-03 10:41 | OPERATIVE REPORT ---
DATE OF SERVICE: 04/02/2018 SURGEON: Salty Schuster DO. MICROFILM PROCESSOR: RAFAL Carlos. This is a medically necessary procedure. Assistance was necessary for retraction of vital neurovascular structures. Without an communication assistant, the procedure would not be possible. PREOPERATIVE DIAGNOSES: 1. Thoracic myelopathy. 2. Ambulatory dysfunction. 3. Thoracic spinal stenosis (connective tissue, central, severe). POSTOPERATIVE DIAGNOSES: 1. Thoracic myelopathy. 2. Ambulatory dysfunction. 3. Thoracic spinal stenosis (connective tissue, central, severe). PROCEDURE PERFORMED: A T9-10, T10-11 bilateral laminectomy with hemifacetectomies and foraminotomies. COMPLICATIONS: None. SPECIMEN SENT: None. DRAINS PLACED: Hemovac. ANESTHESIA: General endotracheal tube anesthesia with local anesthetic. INDICATIONS: This is a very pleasant 47-year-old gentleman, who had lost complete use of his right lower extremity. He was unable to ambulate as a result and was wheelchair bound. He presented to me with a long history of increasing back and bilateral lower extremity weakness and pain. MRI demonstrated severe central stenosis in the T9 to T11 region as well as severe stenosis in his cervical spine. It was felt that the thoracic stenosis should be addressed urgently and first, he was agreeable to this. He failed all conservative options and had rapid progression of his neurologic decline. DESCRIPTION OF PROCEDURE: The patient was identified by name on wrist band in the preoperative holding area. His operative site was signed and consent was signed. SCDs were placed. Neuromonitoring was hooked up and antibiotics were started. He was taken to the operating room theater and placed under general endotracheal tube anesthesia and then transferred to the operating room table in the prone position. He was prepped and draped in the usual sterile fashion. Formal timeout was conducted. I then infiltrated the skin and soft tissue with 0.5% Marcaine with epinephrine. I made a midline incision over the T9 to T11 levels. I proceeded with bilateral subperiosteal paraspinal muscular approach exposing the posterior elements and used a Leksell rongeur followed by a high speed bur followed by Kerrison rongeurs to perform bilateral laminectomy with hemifacetectomies and foraminotomies. I was finished. There was no further compression on the thecal sac. Neuromonitoring remained stable throughout this procedure. I maintained hemostasis, irrigated the wound thoroughly with 2 liters of antibiotic enhanced irrigation. I maintained hemostasis. I closed the wound utilizing 0 Vicryls followed by 2-0 Vicryls followed by dede for skin. We applied dressings and took the patient in the supine position in the PACU where he awoke without incident. He tolerated the procedure well. PLAN: Plan at this time is to admit the patient for IV antibiotics, IV pain control and postoperative monitoring. We will have the patient out of bed on postop day #1 and we will plan to get the patient over to rehab where he will work on lower extremity strengthening and ambulatory function. Job ID: [id number] DocumentID: [id number] Dictated Date: 04/03/2018 07:47:47 Advanced Analytics Associate Date: 04/03/2018 10:41:06 Dictated By: SALTY SCHUSTER DO
[2018-04-03] MEDS ORDERED: ZOLPIDEM 5 MG (AMBIEN) TAB PO PRN (11:00)
--- NOTE | 2018-04-03 11:56 | NUR ---
CM/SS spoke with the patient and his friend Gloria, that helps him in the home. They discussed that SNF for rehab would be in his best interest. Patient would like referral sent to [facility]. Contacted Fabien Waldrop and asked for an H&P, he is to fax one over. Will then send referral to [facility].
[2018-04-03 12:05] VITALS: BP 175/88
--- NOTE | 2018-04-03 12:17 | Progress Note (SOAP) ---
Subjective Date Seen by a Provider: Apr 03, 2018 Time Seen by a Provider: 12:15 Subjective/Events-last exam LAVINIA. C/o severe incisional pain. Denies N/V/CP/SOB. Has some RLE new pain after surgery. Objective Exam Vital Signs Date Time Temp Pulse Resp B/P (MAP) Pulse Ox O2 Delivery O2 Flow Rate FiO2 04/03/18 09:00 93 Room Air 04/03/18 08:03 99.2 79 20 141/83 (102) 93 Room Air 04/03/18 03:33 97.7 74 21 130/72 (91) 94 Room Air 04/03/18 00:00 98.9 78 20 113/52 (72) 94 Room Air 04/02/18 21:00 Room Air 04/02/18 19:37 98.0 74 18 120/64 (82) 93 Room Air 04/02/18 16:23 97.8 76 20 110/71 (84) 95 Room Air I & O 04/03/18 07:00 Intake Total 2590 ml Output Total 1400 ml Balance 1190 ml Capillary Refill : General Appearance: No Apparent Distress Extremity: Other (RLE profound weakness unchanged since prior to surgery, wound CDI, 5/5 LLE motor) Results Lab Laboratory Tests 04/03/18 05:30: White Blood Count 19.1H, Red Blood Count 4.75, Hemoglobin 14.4, Hematocrit 44, Mean Corpuscular Volume 93, Mean Corpuscular Hemoglobin 30, Mean Corpuscular Hemoglobin Concent 33, Red Cell Distribution Width 13.4, Platelet Count 295, Mean Platelet Volume 9.4, Sodium Level 140, Potassium Level 4.5, Chloride Level 105, Carbon Dioxide Level 24, Anion Gap 11, Blood Urea Nitrogen 24H, Creatinine 1.18, Estimat Glomerular Filtration Rate > 60, BUN/Creatinine Ratio 20, Glucose Level 114H, Calcium Level 9.7, Corrected Calcium 9.8, Total Bilirubin 0.5, Aspartate Amino Transf (AST/SGOT) 33, Alanine Aminotransferase (ALT/SGPT) 18, Alkaline Phosphatase 77, Total Protein 7.3, Albumin 3.9 Microbiology 04/02/18 MRSA Screen - Final, Complete MRSA not isolated Assessment/Plan Assessment/Plan Assess & Plan/Chief Complaint ASSESSMENT: s/p thoracic laminectomy for myelopathy PLAN: rehab placement pain control d/c drain per protocol dressing changes as needed Clinical Quality Measures DVT/VTE Risk/Contraindication: Risk Factor Score Per Nursin RFS Level Per Nursing on Admit: 4+=Very High SALTY RODARTE DO Apr 03, 2018 12:17
[2018-04-03] MEDS: GABAPENTIN 600 MG (NEURONTIN) TAB PO SCH ×3 (12:19→20:48)
[2018-04-03] MEDS: BACLOFEN 10 MG (LIORESAL) TAB PO SCH ×3 (12:20→20:48)
--- NOTE | 2018-04-03 12:31 | NUR ---
Inpatient rehab We were asked to take a look at this patient for possible admission to the inpatient rehab unit. Discussed with therapy team. Unfortunately, it does not appear patient could tolerate 3 hours of therapy at this time. PT reports that patient stated he would be discharging to a [facility]. According to notes from socially responsible investment adviser, a referral has been sent to [facility] per patient's request. Agree that SNF placement is the best option at this time.
--- NOTE | 2018-04-03 12:58 | NUR ---
CM/SS [facility] is unable to accept the patient, they do not have bariatric equipment. They suggested [facility] as they have some bariatric equipment. Addendum: 04/03/18 at 1322 by RELL ALLEN Spoke with the patient about sending referral to [facility]. He was ok with this and a referral was sent there.
[2018-04-03] MEDS: NICOTINE 21 MG (NICODERM) PATCH TD SCH (13:39)
--- NOTE | 2018-04-03 13:40 | Physical Therapy Daily Note ---
PT Daily Note-Current Subjective Pt in bed and reports he was able to get more of his pain medication. Pt agrees to PT. Pain Numeric Pain Scale: 10-Worst Possible Pain Location: Medial Location Body Site: Back Pain Description: Acute Mental Status Patient Orientation: Person, Place, Situation Attachments: SCD's, Haddad Catheter Transfers Therapy Code Descriptions/Definitions Functional [place] Measure: 0=Not Assessed/NA 4=Minimal Assistance 1=Total Assistance 5=Supervision or Setup 2=Maximal Assistance 6=Modified [place] 3=Moderate Assistance 7=Complete [place] Therapy Quality Codes: 6 Independent with activity with or without an assistive device 5 Patient requires set up or clean up by helper. Patient completes activity by themselves 4 Supervision or touching assist (CGA). [place] provide cues , steadying assist 3 The helper provides less than half the effort to complete the activity 2 The helper provides more than half the effort to complete the activity 1 Dependent. The helper does all the effort to complete an activity 7 Patient refused to complete or attempt activity 9 The patient did not perform the activity before the current illness or injury 88 Not attempted due to Medical conditions or safety concerns Transfers (B, C, W/C) (FIM): 1 Supine to/from Sit: 1 Weight Bearing Right Lower Extremity: Right Full Weight Bearing Left Lower Extremity: Left Full Weight Bearing Assessment Current Status: Poor Progress Pt required dependent A x2 to get to EOB. Pt was able to sit EOB with min A for balance. SPT stretched pts gastroc and hamstrings bilateral. Pt was also able to perform seated AP. Pt still has increased tone and rigidity. Pt also seems hypersensitive with light touch. PT was able to put a trapeze on pts bed for him to self adjust with use of BUE. Pt is back in bed with all needs met. PT Short Term Goals Short Term Goals Time Frame: Apr 10, 2018 Transfers (B,C,W/C) (FIM): 2 Gait (FIM): 0 Distance (FIM): 0=does not occure Gait Distance Comment: 0 Gait Level of Assist: 0 Gait Assistive Device: FWW PT Retirement Goals Retirement Goals PT Retirement Goals Time Frame: May 01, 2018 Transfers (B,C,W/C) (FIM): 3 Gait (FIM): 1 Gait distance (FIM): 1=up to 49 ft Distance: 25' Gait Level of Assist: 3 Gait Assistive Device: FWW PT Plan Problem List Problem List: Activity Tolerance, Functional Strength, Safety, Balance, Gait, Transfer, Bed Mobility, ROM Treatment/Plan Treatment Plan: Continue Plan of Care Treatment Plan: Bed Mobility, Education, Functional Activity Nina, Functional Strength, Gait, Safety, Therapeutic Exercise, Transfers Treatment Duration: May 01, 2018 Frequency: 11 times per week Estimated Hrs Per Day: .25 hour per day Patient and/or Family Agrees t: Yes Time/GCodes Time In: 1255 Time Out: 1309 Total Billed Treatment Time: 14 Total Billed Treatment 1 visit EX 14 min ROSHNI REAL PT Apr 03, 2018 13:40
--- NOTE | 2018-04-03 14:55 | NUR ---
CM/SS administrative staff from [facility] will be out to speak with the patient before they can make decision on acceptance. For the patient to have access to senior living benefits he couldn't discharge there until after the .
[2018-04-03 15:47] VITALS: BP 152/73
[2018-04-03] MEDS: HYDROcodone/APAP 5 MG/325 MG (LORTAB) TAB PO PRN ×2 (16:34→20:57)
[2018-04-03 20:16] VITALS: BP 136/79
[2018-04-03] MEDS ORDERED: morphine ER 15 MG (MS CONTIN) TAB PO SCH (21:00)
[2018-04-04] VITALS: BP 132/78
[2018-04-04 03:30] VITALS: BP 146/77
[2018-04-04] MEDS: oxyCODONE/APAP 5/325MG (PERCOCET 5) TABLET PO PRN ×2 (03:33→17:11)
[2018-04-04] MEDS: MULTIVIT W/MINERALS TAB (THERAGRAN M) PO SCH (06:06)
[2018-04-04 07:43] VITALS: BP 143/92
[2018-04-04] MEDS: amLODIPine 10 MG (NORVASC) TAB PO SCH (08:24)
[2018-04-04] MEDS: BACLOFEN 10 MG (LIORESAL) TAB PO SCH ×4 (08:24→20:36)
[2018-04-04] MEDS: GABAPENTIN 600 MG (NEURONTIN) TAB PO SCH ×4 (08:24→20:36)
[2018-04-04] MEDS: HYDROcodone/APAP 5 MG/325 MG (LORTAB) TAB PO PRN ×3 (08:24→20:36)
[2018-04-04] MEDS: morphine ER 15 MG (MS CONTIN) TAB PO SCH ×2 (08:24→20:36)
[2018-04-04] MEDS: lisINopril 5 MG (PRINIVIL) TABLET PO SCH (08:26)
[2018-04-04] MEDS: NICOTINE 21 MG (NICODERM) PATCH TD SCH (08:26)
[2018-04-04] MEDS: NICOTINE PATCH REMOVAL TP SCH (08:26)
--- NOTE | 2018-04-04 08:58 | NUR ---
CM/SS ML-F would accept the patient for SNF, able to access that on .
--- NOTE | 2018-04-04 12:08 | Physical Therapy Daily Note ---
PT Daily Note-Current Subjective Pt. in bed, declines Rx at this time stating his back pain is too much right now. Pt. states he is having a brace brought to the hospital today from home and he feels this will provide the support he needs and will help decrease his back pain so he can tolerate activity. Pt. asks that this SKEIN WINDING OPERATOR return later in the day to see if his brace has arrived. Pain Numeric Pain Scale: 6 Location: Medial Location Body Site: Back Pain Description: Stabbing Transfers Therapy Code Descriptions/Definitions Functional [place] Measure: 0=Not Assessed/NA 4=Minimal Assistance 1=Total Assistance 5=Supervision or Setup 2=Maximal Assistance 6=Modified [place] 3=Moderate Assistance 7=Complete [place] Therapy Quality Codes: 6 Independent with activity with or without an assistive device 5 Patient requires set up or clean up by helper. Patient completes activity by themselves 4 Supervision or touching assist (CGA). [place] provide cues , steadying assist 3 The helper provides less than half the effort to complete the activity 2 The helper provides more than half the effort to complete the activity 1 Dependent. The helper does all the effort to complete an activity 7 Patient refused to complete or attempt activity 9 The patient did not perform the activity before the current illness or injury 88 Not attempted due to Medical conditions or safety concerns Weight Bearing Right Lower Extremity: Right Full Weight Bearing Left Lower Extremity: Left Full Weight Bearing Assessment Current Status: Refused Treatment PT Short Term Goals Short Term Goals Time Frame: Apr 10, 2018 Transfers (B,C,W/C) (FIM): 2 Gait (FIM): 0 Distance (FIM): 0=does not occure Gait Distance Comment: 0 Gait Level of Assist: 0 Gait Assistive Device: FWW PT Usp Goals Oncology Physician Goals PT Usp Goals Time Frame: May 01, 2018 Transfers (B,C,W/C) (FIM): 3 Gait (FIM): 1 Gait distance (FIM): 1=up to 49 ft Distance: 25' Gait Level of Assist: 3 Gait Assistive Device: FWW PT Plan Treatment/Plan Treatment Plan: Continue Plan of Care Treatment Plan: Bed Mobility, Education, Functional Activity Nina, Functional Strength, Gait, Safety, Therapeutic Exercise, Transfers Treatment Duration: May 01, 2018 Frequency: 11 times per week Estimated Hrs Per Day: .25 hour per day Patient and/or Family Agrees t: Yes Time/GCodes Time In: 1005 Time Out: 1005 Total Billed Treatment Time: 0 Total Billed Treatment 1,No Rx, No chg G Codes Necessary: No MATT SLOAN SKEIN WINDING OPERATOR Apr 04, 2018 12:08
[2018-04-04 12:55] VITALS: BP 100/56
--- NOTE | 2018-04-04 13:15 | Occupational Ther Daily Note ---
OT Current Status-Daily Note Subjective Pt in bed, alert, cooperative, agreed for OT Treatment. c/o severe back pain. Pain Numeric Pain Scale: 6 Location: Lower Location Body Site: Back Pain Description: Ache, Stabbing, Sharp Mental Status/Objective Patient Orientation: Person, Place, Time, Situation, Normal For Age Therapy Code Descriptions/Definitions Functional [place] Measure: 0=Not Assessed/NA 4=Minimal Assistance 1=Total Assistance 5=Supervision or Setup 2=Maximal Assistance 6=Modified [place] 3=Moderate Assistance 7=Complete [place] Attachments: Central Line, Drains, Haddad Catheter, IV, Saline Lock, SCD's ADL-Treatment Pt participated in sponge-bath , ROM to BUE, & Strengthening ex to BUE to increase strength to participate in all ADLs & to push up from EOM to stand with FWW. Pt needs min A in sponge bath with READY-BATH Warm Wipes. Pt wipes face, arms, abdomen, legs, neck, head , Min A to wipes back. Pt c/o severe pain in middle back.Completed 30 reps x 2 setsx 2 lab wts, 30 reps with red theraband in all planes of motion & 40 reps using hand gripper to strengthen hand customer experience leader. Eating (FIM): 7 Grooming (FIM): 7 Bathing (FIM): 5 (sponge bath) Bathing Location: L Arm, R Arm, L Upper Leg, R Upper Leg, L Lower Leg ( including foot), R Lower Leg (including foot), Chest, Abdomen, Buttocks, Perineal Area Upper Body (FIM): 6 Lower Body Dressing (FIM): 0 Toileting (FIM): 0 Transfers (B, C, W/C) (FIM): 0 Toilet/Commode Transfer (FIM): 0 Tub Transfer(FIM): 0 Shower Transfer(FIM): 0 Education OT Patient Education: Correct positioning Teaching Recipient: Patient Teaching Methods: Demonstration Response to Teaching: Verbalize Understanding OT Short Term Goals Short Term Goals Transfers (B,C,W/C) (FIM): 2 1=Demonstrate adherence to instructed precautions during ADL tasks. 2=Patient will verbalize/demonstrate understanding of assistive devices/ modifications for ADL. 3=Patient will improve strength/tolerance for activity to enable patient to perform ADL's. OT Prison Goals Prison Goals Time Frame: Apr 24, 2018 Eating (FIM): 6 Grooming(FIM): 6 Bathing(FIM): 3 Upper Body Dressing(FIM): 5 Lower Body Dressing(FIM): 3 Toilet/Commode Transfer(FIM): 4 Additional Goals: 1-Demonstrate ADL Tasks, 2-Verbalize Understanding, 3- ImproveStrength/Nina 1=Demonstrate adherence to instructed precautions during ADL tasks. 2=Patient will verbalize/demonstrate understanding of assistive devices/ modifications for ADL. 3=Patient will improve strength/tolerance for activity to enable patient to perform ADL's. OT Education/Plan Problem List/Assessment Assessment: Decreased Activ Tolerance, Decreased Safety Aware, Decreased UE Strength, Dependent Transfers, Impaired Bed Mobility, Impaired Funct Balance, Impaired Self-Care Skills Pt to benefit from skilled OT intervention for ADL training, transfers, strengthening, and adaptive equipment training as needed to increase level of independence and allow safe discharge plan. Discharge Recommendations Plan/Recommendations: Continue POC Therapy D/C Recommendations: Home Independently, Occupational Therapy Home Care Equpiment Recommendations-D/C: Extended Bath Bench, Extended Shower Sprayer, Ride Assembly Supervisor Treatment Plan/Plan of Care Treatment,Training & Education: Yes Patient would benefit from OT for education, treatment and training to promote independence in ADL's, mobility, safety and/or upper extremity function for ADL' s. Plan of Care: ADL Retraining, Functional Mobility, UE Funct Exercise/Act Treatment Duration: Apr 24, 2018 Frequency: 5 times per week Estimated Hrs Per Day: .25 hour per day Rehab Potential: Guarded Time/GCodes Start Time: 11:05 Stop Time: 11:35 Total Time Billed (hr/min): 30 Billed Treatment Time 1, ADL 18 min, FA 12 min, Total 30 min. JOSE NEIL OT Apr 04, 2018 13:15
[2018-04-04 15:08] VITALS: BP 122/67
--- NOTE | 2018-04-04 15:49 | Physical Therapy Daily Note ---
PT Daily Note-Current Subjective Pt in bed and reports a friend will be bringing his back brace but he will participate in PT and do bed exercises but does not want to get out of bed until he has his brace. Pain Numeric Pain Scale: 10-Worst Possible Pain Location Body Site: Back Mental Status Patient Orientation: Person, Place, Situation, Normal For Age Attachments: SCD's, Haddad Catheter, IV Transfers Therapy Code Descriptions/Definitions Functional [place] Measure: 0=Not Assessed/NA 4=Minimal Assistance 1=Total Assistance 5=Supervision or Setup 2=Maximal Assistance 6=Modified [place] 3=Moderate Assistance 7=Complete [place] Therapy Quality Codes: 6 Independent with activity with or without an assistive device 5 Patient requires set up or clean up by helper. Patient completes activity by themselves 4 Supervision or touching assist (CGA). [place] provide cues , steadying assist 3 The helper provides less than half the effort to complete the activity 2 The helper provides more than half the effort to complete the activity 1 Dependent. The helper does all the effort to complete an activity 7 Patient refused to complete or attempt activity 9 The patient did not perform the activity before the current illness or injury 88 Not attempted due to Medical conditions or safety concerns Weight Bearing Right Lower Extremity: Right Full Weight Bearing Left Lower Extremity: Left Full Weight Bearing Exercises Supine Ex: Ankle pumps, Glut sets, Heel Slides Supine Reps: 10 Assessment Current Status: Poor Progress Pt was able to perform supine LE ex with RLE AAROM with gait belt LLE AROM. PT educated pt on pain threshold and nerve signals going from brain to foot and back to the brain. Pt is concerned that the pain will never go away because for 10 years he just experienced numbness. PT continues to have increased tone and clonus beats with rest in RLE and LLE. Pt has all needs met in and is in bed. PT Short Term Goals Short Term Goals Time Frame: Apr 10, 2018 Transfers (B,C,W/C) (FIM): 2 Gait (FIM): 0 Distance (FIM): 0=does not occure Gait Distance Comment: 0 Gait Level of Assist: 0 Gait Assistive Device: FWW PT Public Relations Studies Director Goals Public Relations Studies Director Goals PT Public Relations Studies Director Goals Time Frame: May 01, 2018 Transfers (B,C,W/C) (FIM): 3 Gait (FIM): 1 Gait distance (FIM): 1=up to 49 ft Distance: 25' Gait Level of Assist: 3 Gait Assistive Device: FWW PT Plan Problem List Problem List: Activity Tolerance, Functional Strength, Safety, Balance, Gait, Transfer, Bed Mobility, ROM Treatment/Plan Treatment Plan: Continue Plan of Care Treatment Plan: Bed Mobility, Concurrent Therapy, Education, Functional Activity Nina, Functional Strength, Gait, Safety, Therapeutic Exercise, Transfers Treatment Duration: May 01, 2018 Frequency: 11 times per week Estimated Hrs Per Day: .25 hour per day Patient and/or Family Agrees t: Yes Safety Risks/Education Patient Education: Safety Issues Teaching Recipient: Patient Teaching Methods: Demonstration, Discussion Response to Teaching: Reinforcement Needed Time/GCodes Time In: 1530 Time Out: 1545 Total Billed Treatment Time: 15 Total Billed Treatment 1 visit EX 15 min MITA SUAZO PT Apr 04, 2018 15:49
--- NOTE | 2018-04-04 17:08 | Progress Note (SOAP) ---
Subjective Date Seen by a Provider: Apr 04, 2018 Time Seen by a Provider: 17:04 Subjective/Events-last exam POD #2 s/p thoracic laminectomy for myelopathy. Pain is 4/10 at rest. This is incisional, his leg pain is much better. He has not yet been up or tried to walk. Plan is for dismissal to snf tomorrow Review of Systems General: No Chills, No Night Sweats HEENT: No Head Aches Gastrointestinal: No: Nausea, Vomiting Musculoskeletal: back pain Neurological: Weakness, Numbness; No: Change in speech Objective Exam Vital Signs Date Time Temp Pulse Resp B/P (MAP) Pulse Ox O2 Delivery O2 Flow Rate FiO2 04/04/18 15:08 97.6 85 18 122/67 (85) 92 Room Air 04/04/18 12:55 98.8 88 18 100/56 (71) 94 Room Air 04/04/18 09:00 93 Room Air 04/04/18 07:43 98.2 81 18 143/92 (109) 93 Room Air 04/04/18 03:30 98.4 86 18 146/77 (100) 94 Room Air 04/04/18 00:00 98.7 80 20 132/78 (96) 96 Room Air 04/03/18 21:00 98 Room Air 04/03/18 20:16 98.8 83 18 136/79 (98) 94 Room Air I & O 04/04/18 07:00 Intake Total 2395 ml Output Total 1670 ml Balance 725 ml Capillary Refill : General Appearance: No Apparent Distress, Other (sleeping when entered room) Respiratory: No Accessory Muscle Use, No Respiratory Distress Extremity: Non Tender, No Calf Tenderness Neurologic/Psychiatric: Alert, Oriented x3, Other (right foot drop, sensory deficit to ble, clonus to ble, improved since surgery. prior to surgery colus was sustained, no 3-4 beats are noted) Skin: Normal Color, Warm/Dry Results Lab Microbiology 04/02/18 MRSA Screen - Final, Complete MRSA not isolated Assessment/Plan Assessment/Plan Assess & Plan/Chief Complaint assessment pod #2 s/p thoracic laminectomy myelopathy right foot drop morbid obesity cad plan dismiss to snf tomorrow for continued care and pt follow up in clinic in 2 weeks back brace Clinical Quality Measures DVT/VTE Risk/Contraindication: Risk Factor Score Per Nursin RFS Level Per Nursing on Admit: 4+=Very High CARLOS PATRICIA Apr 04, 2018 17:08
--- NOTE | 2018-04-04 17:12 | Discharge Inst-Simple/Standard ---
Discharge Inst-Standard Patient Instructions/Follow Up Plan of Care/Instructions/FU: dont bend lift twist push or pull keep incision covered and dry brace when ambulatory or up Activity as Tolerated: No Goal: work with pt on ambulation Discharge Diet: Cardiac Diet Return to The Hospital For: shortness of breath chest pain fever chills or incisional drainage CARLOS PATRICIA Apr 04, 2018 17:11
[2018-04-04] MEDS ORDERED: FLU QUADRIvalent (5+ YOA) 2018-2019 (AFLURIA) 0.5 ML IM ONE (17:15)
--- NOTE | 2018-04-04 17:29 | NUR ---
called pharmacy to report that the flu vaccination syringe was thrown in the sharp's container before recording the lot number and expiration date. Addendum: 04/04/18 at 1737 by LOLLY DOBSON RN LOT NUMBER : [id number] EXP DATE: 06-29-18
--- NOTE | 2018-04-04 18:04 | NUR ---
HENOK AND SANA MADE AWARE OF NURSING COMMUNICATION FROM IRIS PATRICIA REQUESTING A BACK BRACE FOR THE PATIENT. THE BACK BRACE WILL BE DELIVERED TOMORROW MORNING--PER SANA.
[2018-04-04 20:00] VITALS: BP 146/87
[2018-04-05 00:55] VITALS: BP 144/81
[2018-04-05] MEDS: HYDROcodone/APAP 5 MG/325 MG (LORTAB) TAB PO PRN (03:35)
[2018-04-05] MEDS: MULTIVIT W/MINERALS TAB (THERAGRAN M) PO SCH (05:35)
[2018-04-05 08:00] VITALS: BP 152/100
[2018-04-05] MEDS: oxyCODONE/APAP 5/325MG (PERCOCET 5) TABLET PO PRN (08:42)
[2018-04-05] MEDS: morphine ER 15 MG (MS CONTIN) TAB PO SCH (08:42)
[2018-04-05] MEDS: NICOTINE 21 MG (NICODERM) PATCH TD SCH (08:42)
[2018-04-05] MEDS: GABAPENTIN 600 MG (NEURONTIN) TAB PO SCH (08:42)
[2018-04-05] MEDS: lisINopril 5 MG (PRINIVIL) TABLET PO SCH (08:43)
[2018-04-05] MEDS: amLODIPine 10 MG (NORVASC) TAB PO SCH (08:43)
[2018-04-05] MEDS: NICOTINE PATCH REMOVAL TP SCH (08:43)
[2018-04-05] MEDS: BACLOFEN 10 MG (LIORESAL) TAB PO SCH (08:43)
--- NOTE | 2018-04-05 09:03 | Discharge Summary ---
Diagnosis/Chief Complaint Date of Admission Apr 02, 2018 at 07:44 Date of Discharge 04/05/2018 Admission Diagnosis Admission Diagnosis thoracic stenosis with myelopathy Discharge Diagnosis same Reason Hospital Visit [id number] laminctomy Discharge Summary Discharge Physical Examination Allergies: Coded Allergies: No Known Drug Allergies (Verified , 11/02/07) Vitals & I&Os Vital Signs Date Time Temp Pulse Resp B/P (MAP) Pulse Ox O2 Delivery O2 Flow Rate FiO2 04/05/18 00:55 96.7 85 18 144/81 (102) 95 Room Air General Appearance: Alert, Oriented X3 Cardiovascular: Regular Rate Extremities: No Clubbing, No Cyanosis Neuro: Normal Speech, Other (3-4+ reflexes, clonus 3-4 beats, right foot drop) Hospital Course Was the Problem List Reviewed?: Yes admitted for thoracic laminectomy for thoracic myelopathy. this occured without event. due to patients severe stenosis with myelopathy and weakness he will need to continue pt for le strengthening and gait training. by pod #3 his vss and pain was controlled. he was dismissed to snf. Discharge Instructions to patient/family Please see electronic discharge instructions given to patient. Discharge Medications Reviewed and agree with Discharge Medication list on patient's Discharge Instruction sheet Clinical Quality Measures DVT/VTE Risk/Contraindication: Risk Factor Score Per Nursin RFS Level Per Nursing on Admit: 4+=Very High CARLOS PATRICIA Apr 05, 2018 09:03
--- NOTE | 2018-04-05 10:18 | NUR ---
CM/SS spoke with [facility], they will transport he patient this day at 11 or 12. Sent discharge information to [facility]. Completed the CARE assessment with the patient, copy on chart, faxed to facility and faxed to [facility].
--- NOTE | 2018-04-05 10:26 | NUR ---
REPORT CALLED TO [facility]
--- NOTE | 2018-04-05 10:57 | Discharge Inst-Skilled Nursing ---
Discharge Inst-Skilled NF Patient Instructions Patient Problems: thoracic myelopathy s/p thoracic laminectomy right foot drop Goal: le strengthening and conditioning gait training Patient Instructions: dont bend from standing position back brace when out of bed keep incision covered clean and dry Consult/Follow Up/Orders Follow Up Appt.: in clinic in 2 weeks Skilled NF [facility] ([facility]) I certify that SNF services are required to be given on an inpatient basis because of the above named patient's need for usp care on a continuing basis for the conditions(s) for which he/she was receiving inpatient hospital services prior to his/her transfer to the SNF. Intermediate Facility Order: Nursing Services, Fire Extinguisher Technician-Evaluate & Treat, Physical Therapy-Evaluate & Treat Oxygen Delivery Method: Room Air Discharge Diet: Cardiac Diet Daily Activity as Tolerated: Yes New & Resume Previous Orders Carlos Patricia Apr 05, 2018 10:55 CARLOS PATRICIA Apr 05, 2018 10:57
--- NOTE | 2018-04-05 11:02 | Occupational Ther Daily Note ---
OT Current Status-Daily Note Subjective Pt resting in bed , alert, oriented & cooperative. Agree for OT treatment. c/o middle Back Pain . Pain Numeric Pain Scale: 7 Location: Medial Location Body Site: Back Pain Description: Sharp Mental Status/Objective Patient Orientation: Person, Place, Time, Situation Therapy Code Descriptions/Definitions Functional [place] Measure: 0=Not Assessed/NA 4=Minimal Assistance 1=Total Assistance 5=Supervision or Setup 2=Maximal Assistance 6=Modified [place] 3=Moderate Assistance 7=Complete [place] Attachments: Central Line, Haddad Catheter, SCD's ADL-Treatment Pt participated in strengthening Ex to BUE to perform self care activities, bed mobility & push up from EOB to stand with FWW.. Morbid Obesity. Pt had back surgery & thus followinh post surgical precautions of not lifing ,pushing, pulling & carrying francois Not more than 5 lbs.Pt c/o severe pain constantly 7/10 on VAS. Pt completed 30 reps x 2 sets x 2 lb wts , 30 reps using Red theraband in all planes of motion with BUE, & 40 reps with hand gripper with each hand to improve Hand grain unloader machine. Eating (FIM): 7 Grooming (FIM): 7 Bathing (FIM): 0 Upper Body (FIM): 7 Lower Body Dressing (FIM): 3 Education OT Patient Education: Correct positioning, Energy conservation, Reviewed precautions, Safety issues, Use of adapted equipment Teaching Recipient: Patient Teaching Methods: Demonstration Response to Teaching: Verbalize Understanding OT Short Term Goals Short Term Goals Transfers (B,C,W/C) (FIM): 2 1=Demonstrate adherence to instructed precautions during ADL tasks. 2=Patient will verbalize/demonstrate understanding of assistive devices/ modifications for ADL. 3=Patient will improve strength/tolerance for activity to enable patient to perform ADL's. OT Longterm Goals Sugar Boiler Goals Time Frame: Apr 24, 2018 Eating (FIM): 6 Grooming(FIM): 6 Bathing(FIM): 3 Upper Body Dressing(FIM): 5 Lower Body Dressing(FIM): 3 Toilet/Commode Transfer(FIM): 4 Additional Goals: 1-Demonstrate ADL Tasks, 2-Verbalize Understanding, 3- ImproveStrength/Nina 1=Demonstrate adherence to instructed precautions during ADL tasks. 2=Patient will verbalize/demonstrate understanding of assistive devices/ modifications for ADL. 3=Patient will improve strength/tolerance for activity to enable patient to perform ADL's. OT Education/Plan Problem List/Assessment Assessment: Decreased Activ Tolerance, Decreased Safety Aware, Decreased UE Strength, Dependent Transfers, Impaired Bed Mobility, Impaired Funct Balance, Impaired Self-Care Skills Pt to benefit from skilled OT intervention for ADL training, transfers, strengthening, and adaptive equipment training as needed to increase level of independence and allow safe discharge plan. Discharge Recommendations Plan/Recommendations: Continue POC Therapy D/C Recommendations: Skilled Nursing Placement Equpiment Recommendations-D/C: Extended Bath Bench, Extended Shower Sprayer, Dipper Operator, Sock Aide, Dressing Stick, Long Shoe Horn, Toilet Riser Treatment Plan/Plan of Care Treatment,Training & Education: Yes Patient would benefit from OT for education, treatment and training to promote independence in ADL's, mobility, safety and/or upper extremity function for ADL' s. Plan of Care: ADL Retraining, Functional Mobility, UE Funct Exercise/Act Treatment Duration: Apr 24, 2018 Frequency: 5 times per week Estimated Hrs Per Day: .25 hour per day Rehab Potential: Guarded Time/GCodes Start Time: 09:50 Stop Time: 10:05 Total Time Billed (hr/min): 15 Billed Treatment Time 1, EX 15 Min. JOSE NEIL OT Apr 05, 2018 11:02
[2018-04-05 11:50] VITALS: BP 144/81
== END 2018-04-05 11:50 | DRG 519 ==
LOC: 4TH 04-02 07:44 → SURG 04-02 07:45 → 4TH 04-02 12:50
PROVIDERS: ADMIT Orthopaedic Surgery; ATTEND Orthopaedic Surgery
PROC: 00NX0ZZ Release Thoracic Spinal Cord, Open Approach (ICD-10-PCS; principal; 2018-04-02 09:27)
DX: M48.04 Spinal stenosis, thoracic region (principal); G95.9 Disease of spinal cord, unspecified; M48.02 Spinal stenosis, cervical region; E66.01 Morbid (severe) obesity due to excess calories; Z68.43 Body mass index [BMI] 50.0-59.9, adult; M21.371 Foot drop, right foot; R26.2 Difficulty in walking, not elsewhere classified; I25.10 Atherosclerotic heart disease of native coronary artery without angina pectoris; I10 Essential (primary) hypertension; I25.2 Old myocardial infarction; E78.5 Hyperlipidemia, unspecified; K21.9 Gastro-esophageal reflux disease without esophagitis; K59.09 Other constipation; Z95.5 Presence of coronary angioplasty implant and graft; Z87.891 Personal history of nicotine dependence
CPT/HCPCS: 36415; 80053; 85027; 87081; 90471; 90686; 94664

== ENCOUNTER → 2018-05-12 | Outpatient (CLI) | payer MEDICARE ==
[~2018-05-12] MED LIST changes: +LISI-556 PO
== END ==
PROVIDERS: ATTEND Internal Medicine
DX: R60.0 Localized edema (principal); E78.2 Mixed hyperlipidemia; I25.10 Atherosclerotic heart disease of native coronary artery without angina pectoris
CPT/HCPCS: 83880

== ENCOUNTER 2018-05-23 09:02 | Outpatient (CLI) | payer MEDICARE ==
[~2018-05-23] VITALS: Ht 190.5 cm; Wt 198.2 kg
[2018-05-23] MEDS ORDERED: CALC625T76 PO (12:18)
[2018-05-23] MEDS ORDERED: HYDR-3816 PO (12:18)
[2018-05-23] MEDS ORDERED: DOCU-143 PO (12:18)
[2018-05-23] MEDS ORDERED: ACET325T38 PO (12:18)
[2018-05-23] MEDS ORDERED: POLY119P5 PO (12:18)
== END 2018-05-23 12:27 | disposition home or self-care (01) ==
LOC: PREOP 09:02
PROVIDERS: ATTEND Orthopaedic Surgery
DX: Z01.818 Encounter for other preprocedural examination (principal)

== ENCOUNTER 2018-05-28 11:07 | Inpatient (IN) | payer MEDICARE ==
[~2018-05-28] VITALS: Ht 190.5 cm; Wt 198.2 kg
[2018-05-28] VITALS (11 sets, daily range): BP systolic 120–142; BP diastolic 58–78
[~2018-05-28 11:07] MED LIST changes: +ACET325T38 PO; +CALC625T76 PO; +DOCU-143 PO; +HYDR-3816 PO; +POLY119P5 PO
--- OUTSIDE RECORDS SUMMARY | 2018-05-28 11:13 | XMS REPORT ---
Author Author Migration, Doctor Organization [facility] Address Unknown Phone Unavailable Care Team Providers Care [employer] Press Set Up Operator Name Role Phone Migration, Doctor Unavailable Unavailable PROBLEMS Type Condition ICD9-CM Code UOZ22-RO Code Onset Dates Condition Status SNOMED Code Problem Foot pain, left M79.672 Active 09801275 Problem Cervical spinal stenosis M48.02 Active 81255710 Problem Obesity E66.9 Active 780619809 Problem Ingrowing nail L60.0 Active 216800760 Problem Cardiac disease I51.9 Active 69745292 Problem HTN (hypertension) I10 Active 09333097 Problem Other chronic pain G89.29 Active 44502464 Problem Morbid obesity E66.01 Active 283107081 Problem Recurrent right knee instability M23.51 Active 565180099 Problem 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 Active 060889137 Problem Erectile dysfunction due to arterial insufficiency N52.01 Active 231584938 Problem Lymphedema in adult patient I89.0 Active 258496851 Problem Polyneuropathy associated with underlying disease G63 Active 533425249 Problem Morbid (severe) obesity due to excess calories E66.01 Active 929816888 Problem 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 Active 7735933801923 Problem Right leg weakness R29.898 Active [id number] Problem Lumbar radiculopathy, chronic M54.16 Active 421512925 ALLERGIES No Information ENCOUNTERS Encounter Location Date Diagnosis [facility] [address] [facility] [id number] [address] May, [facility] [address] [facility] [id number] [place] [address] May, Cervical spinal stenosis M48.02 and Lumbar radiculopathy, chronic M54.16 [facility] [address] [facility] [id number] [place] [address] Apr, Cervical spinal stenosis M48.[address] [facility] [place] [id number] Apr, Lymphedema in adult patient I89.0 ; Cervical spinal stenosis M48.02 ; Lumbar radiculopathy, chronic M54.16 ; Blister of right foot, initial encounter S90.821A and Morbid obesity E66.01 [facility] [address] [address] Apr, [facility] [id number] [place] [address] 91703- 6977 Apr, [facility] [address] [address] Apr, Cervical spinal stenosis M48.[address] [id number] Apr, Edema of both lower extremities R60.0 ; Morbid (severe) obesity due to excess calories E66.01 ; Abrasion of left lower extremity, initial encounter S80.812A ; Lumbar radiculopathy, chronic M54.16 ; 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 ; 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 ; HTN ( hypertension) I10 ; History of back surgery Z98.890 and Morbid obesity E66.01 [facility] [address] [address] 13 Apr, 2018 [facility] [address] [address] 18[address] Apr, [facility] [address] [address] 2072 Apr, [facility] [address] [address] 6[address] Apr, [facility] [address] [address] 6552 04 Apr, [address] [facility] [address] [id number] Mar, Lumbar radiculopathy, chronic M54.16 ; 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 ; Recurrent right knee instability M23.51 ; Other chronic pain G89.29 ; HTN ( hypertension) I10 and Mixed hyperlipidemia E78.2 [facility] [id number] [place] [address] 49101- 7161 Mar, [facility] [id number] [place] [address] 99085- 6769 Mar, Lumbar radiculopathy, chronic M54.16 and Cervical spinal stenosis M48.02 [facility] [id number] [place] [address] 85951- 2836 Mar, [facility] [id number] [place] [address] 60748- 6588 Mar, [facility] [id number] [place] [address] 55091- 4405 Mar, [facility] [id number] [place] [address] 72013- 7293 Mar, Cervical spinal stenosis M48.02 [facility] [id number] [place] [address] 14026- 5487 Mar, Cervical spinal stenosis M48.02 [facility] [address] [place] [address] 06974- 3160 Mar, Lumbar radiculopathy, chronic M54.16 [facility] [id number] [place] [address] 91232- 6710 Mar, [facility] [id number] [place] [address] 30632- 9458 Feb, Cervical spinal stenosis M48.02 and Lumbar radiculopathy, chronic M54.16 [facility] [address] [place] [address] 77255- 4485 Feb, Lumbar radiculopathy, chronic M54.16 [facility] [id number] [place] [address] 07517- 9035 31 Jan, 2018 Cervical spinal stenosis M48.02 [facility] [id number] [place] [address] 31254- 9286 Jan, Cervical spinal stenosis M48.02 [facility] [id number] [place] [address] 17459- 9580 Jan, [facility] [id number] [place] [address] 55226- 8415 Jan, Lumbar radiculopathy, chronic M54.16 [facility] [id number] [place] [address] 63121- 6141 Jan, Cervical spinal stenosis M48.02 [facility] [id number] [place] [address] 45988- 6179 Jan, Lumbar radiculopathy, chronic M54.16 [facility] [id number] [place] [address] 74715- 6804 Jan, [facility] [id number] [place] [address] 66133- 8870 06 Jan, 2018 Cervical spinal stenosis M48.02 ; Morbid (severe) obesity due to excess calories E66.01 and BMI 50.0-59.9, adult Z68.43 [facility] [id number] [place] [address] 50237- 6479 Jan, Cervical spinal stenosis M48.02 [facility] [id number] [place] [address] 80215- 6298 Dec, Lumbar radiculopathy, chronic M54.16 [facility] [id number] [place] [address] 63893- 7912 Dec, Cervical spinal stenosis M48.02 [facility] [id number] [place] [address] 49254- 7389 Dec, Cervical spinal stenosis M48.02 [facility] [address] [place] [address] 6018 14 Dec, 2017 [facility] [id number] [place] [address] 20940- 1575 13 Dec, 2017 Lumbar radiculopathy, chronic M54.16 [facility] [id number] [place] [address] 72221- 1726 07 Dec, 2017 Cervical spinal stenosis M48.02 [facility] [address] 79337- 5785 Nov, Cardiac disease I51.9 and HTN (hypertension) I10 [facility] [address] 71675- 1321 Nov, Lumbar radiculopathy, chronic M54.16 [facility] [id number] [place] [address] 16324- 1453 Nov, Cervical spinal stenosis M48.02 [facility] [id number] [place] [address] 24609- 4673 Nov, Lumbar radiculopathy, chronic M54.16 [facility] [address] 90825- 5653 27 Sep, 2017 Lumbar radiculopathy, chronic M54.16 [facility] [id number] [place] [address] 56903- 5980 24 Oct, 2017 Cervical spinal stenosis M48.02 [facility] [id number] [place] [address] 53873- 6482 10 Oct, 2017 Lumbar radiculopathy, chronic M54.16 [facility] [id number] [place] [address] 85032- 7690 27 Sep, 2017 Cervical spinal stenosis M48.02 [facility] [id number] [place] [address] 04017- 1094 Sep, Cervical spinal stenosis M48.02 [facility] [address] 34782- 4270 Sep, Lumbar radiculopathy, chronic M54.16 [facility] [facility] [address] [place] [address] 78047- 3025 Sep, Lumbar radiculopathy, chronic M54.16 and BMI 50.0-59.9, adult Z68.43 [facility] [id number] [place] [address] 72547- 2423 Aug, Cervical spinal stenosis M48.02 [facility] [id number] [place] [address] 91393- 7106 Aug, [facility] [id number] [place] [address] 74835- 7719 Jul, Cervical spinal stenosis M48.02 [facility] [id number] [place] [address] 22479- 6866 Jul, Medicare annual wellness visit, initial Z00.00 ; Morbid ( severe) obesity due to excess calories E66.01 ; 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 ; 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 ; Polyneuropathy associated with underlying disease G63 ; HTN (hypertension) I10 ; Mixed hyperlipidemia E78.2 ; BMI 50.0-59.9, adult Z68.43 and Encounter for immunization Z23 [facility] [address] [place] [address] 72965- 7857 Jul, Cervical spinal stenosis M48.02 ; HTN (hypertension) I10 ; 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 and Right leg weakness R29.898 [facility] [id number] [place] [address] 10556- 1323 June, Cervical spinal stenosis M48.02 [facility] [id number] [place] [address] 30658- 4589 June, Cervical spinal stenosis M48.02 [facility] [id number] [place] [address] 72676- 2370 May, Cervical spinal stenosis M48.02 [facility] [id number] [place] [address] 07962- 3634 Apr, Cervical spinal stenosis M48.02 [facility] [id number] [place] [address] 54762 -3008 14 Mar, 2017 Neck pain on right side M54.2 and BMI 50.0-59.9, adult Z68.43 [place] [address] 14901- 6869 06 Mar, 2017 Cervical spinal stenosis M48.02 [place] [facility] [address] 21064- 4908 Feb, Cervical spinal stenosis M48.02 [place] [address] 74027- 9676 Feb, [facility] [address] 82235- 5198 Feb, Morbid (severe) obesity due to excess calories E66.01 and 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 [facility] [id number] [place] [address] 74433- 1190 Feb, Mixed hyperlipidemia E78.2 and HTN (hypertension) I10 [facility] [facility] [id number] [place] [address] 75160- 6776 Feb, Cervical spinal stenosis M48.02 ; HTN (hypertension) I10 ; Mixed hyperlipidemia E78.2 ; Recurrent right knee instability M23.51 and Morbid obesity E66.01 [facility] [facility] [id number] [place] [address] 15637- 1582 13 Jan, 2017 Other chronic pain G89.29 [facility] [id number] [place] [address] 22123- 6161 16 Dec, 2016 Other chronic pain G89.29 [place] [facility] [address] 66164- 8958 Nov, Other chronic pain G89.29 [facility] [id number] [place] [address] 06766- 4254 Oct, Other chronic pain G89.29 [facility] [id number] [place] [address] 57119- 6596 Sep, Other chronic pain G89.29 [facility] [id number] [place] [address] 42928- 6747 Sep, Other chronic pain G89.29 [facility] [id number] [place] [address] 74233- 8076 Sep, Tenderness of left calf M79.662 and Cervical spinal stenosis M48.02 [facility] [id number] [place] [address] 89147- 4544 Aug, Other chronic pain G89.29 [facility] [id number] [place] [address] 41812- 2516 Aug, Cervical radiculopathy M54.12 [facility] [address] [place] [address] 12883 -7982 Aug, Cervical neuritis M54.12 [facility] [id number] [place] [address] 86431- 4693 Jul, Other chronic pain G89.29 [facility] [id number] [place] [address] [id number] Jul, Dental caries K02.9 [facility] [address] [place] [address] 89191- 0787 Jul, Other chronic pain G89.29 [facility] [id number] [place] [address] 05358- 8836 June, Other chronic pain G89.29 [facility] [address] [place] [address] [id number] May, Dental examination Z01.20 [facility] [address] [address]- 5381 May, Other chronic pain G89.29 [facility] [id number] [place] [address] 86398- 6544 Apr, Cervical spinal stenosis M48.02 and Drug-induced constipation K59.03 [facility] [id number] [place] [address] 40516- 0546 Apr, [facility] [id number] [place] [address] 92387- 9022 Apr, Other chronic pain G89.29 [facility] [id number] [place] [address] 74993- 8090 Apr, [facility] [id number] [place] [address] 95455- 1978 Mar, [facility] [id number] [place] [address] 19329- 5239 Mar, Other chronic pain G89.29 [facility] [id number] [place] [address] 04046- 5218 Feb, Other chronic pain G89.29 [facility] [id number] [place] [address] 87098- 4560 Jan, Other chronic pain G89.29 [facility] [id number] [place] [address] 79461- 8093 30 Dec, 2015 [facility] [id number] [place] [address] 47231- 2547 16 Dec, 2015 Other chronic pain G89.29 [facility] [id number] [place] [address] 158337- 3117 11 Dec, 2015 Cervical spinal stenosis M48.02 ; Encounter for immunization Z23 ; Polyneuropathy associated with underlying disease G63 and Erectile dysfunction due to arterial insufficiency N52.01 [facility] [id number] [place] [address] 32049- 0021 Nov, [facility] [id number] [place] [address] 73394- 4512 Nov, [facility] [id number] [place] [address] 66834- 5432 Oct, [facility] [id number] [place] [address] 87999- 0807 Sep, [facility] [address] 32969- 0175 Aug, [facility] [id number] [place] [address] 78850- 8711 Jul, Other chronic pain G89.29 [facility] [id number] [place] [address] 53491 -9267 Jul, Angioedema, initial encounter T78.3XXA and Dental abscess K04.7 [facility] [address] 17010- 8948 Jul, Leg pain M79.606 [facility] [id number] [place] [address] 20320- 1298 June, Other chronic pain G89.29 and Encounter for immunization Z23 [facility] [id number] [place] [address] 19362- 9189 June, [facility] [id number] [place] [address] 41120- 5139 May, Leg pain M79.606 [facility] [id number] [place] [address] 12356- 6663 Apr, Leg pain M79.606 and Cervical spinal stenosis M48.02 [facility] [id number] [place] [address] 87168- 4543 Apr, [facility] [id number] [place] [address] 62186- 3382 Mar, High ankle sprain of left lower extremity S93.432A [facility] [id number] [place] [address] 74449- 9287 Mar, [facility] [id number] [place] [address] 54522- 0899 Mar, Left ankle pain M25.572 [facility] [id number] [place] [address] 09708- 5348 Mar, [facility] [id number] [place] [address] 50043- 4567 Mar, [facility] [id number] [place] [address] 04571- 8883 Mar, Leg pain M79.606 [facility] [id number] [place] [address] 61577- 0335 Mar, [facility] [id number] [place] [address] 07787- 0352 Mar, Ankle pain M25.579 ; Cardiac disease I51.9 ; Obesity E66.9 ; Leg pain M79.606 ; HTN (hypertension) I10 ; Ingrowing nail L60.0 ; 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 and Foot pain, left M79.672 [facility] [id number] [place] [address] 59001- 2179 Feb, [facility] [id number] [place] [address] 21076- 8798 Jan, [facility] [id number] [place] [address] 81115- 9469 Dec, Cervical spinal stenosis M48.02 and Hypertension I10 [facility] [id number] [place] [address] 00967- 7028 Dec, [facility] [id number] [place] [address] 56216- 1675 Dec, [facility] [id number] [place] [address] 45506- 4979 Dec, [facility] [address] [address]- 9000 Nov, [facility] [address] [address]- 4969 Nov, [facility] [address] [address]- 4555 Oct, [facility] [id number] [place] [address] 713118- 2718 Oct, [facility] [id number] [place] [address] 757338- 6594 Oct, [facility] [id number] [place] [address] 286650- 7961 Oct, [facility] [id number] [place] [address] 02647- 9395 Sep, [facility] [id number] [address]- 2834 Sep, [facility] [id number] [place] [address] 90217- 1192 Sep, Spinal stenosis in cervical region 723.0 ; Essential hypertension, benign 401.1 and Erectile dysfunction 607.84 [facility] [address] [address]- 3272 Sep, [facility] [address] [address]- 8841 Aug, [facility] [address] [address]- 7422 Aug, [facility] [id number] [address]- 6582 Jul, [facility] [address] [address]- 7166 June, [facility] [id number] [address]- 5036 June, [facility] [address] [id number] [address]- 2464 June, [facility] [address] [facility] [id number] [place] [address]- 3647 June, [facility] [address] [facility] [id number] [address]- 0358 June, Spinal stenosis in cervical region 723.0 and Essential hypertension, benign 401.1 [facility] [address] [id number] [place] [address]- 6986 May, [facility] [address] [facility] [id number] [place] [address]- 5481 May, [facility] [address] [address]- 9963 16 Apr, 2014 [facility] [place] [facility] [address] [facility] [id number] [place] [address]- 3774 16 Apr, 2014 [facility] [place] [facility] [address] [id number] [place] [address] Apr, [facility] [place] [facility] [address] [facility] [id number] [place] [address] Apr, [facility] [place] [facility] [address] [facility] [id number] [place] [address] Mar, [facility] [place] [facility] [address] [id number] [place] [address] Mar, [facility] [place] [facility] [address] [id number] [place] [address] Feb, [facility] [place] [facility] [address] [facility] [id number] [place] [address] Feb, [facility] [place] [facility] [address] [facility] [id number] [place] [address] Feb, [facility] [place] [facility] [address] [id number] [place] [address] Feb, [facility] [place] [facility] [address] [id number] [place] [address] Feb, [facility] [place] [facility] [address] [id number] [place] [address] Jan, [facility] [place] [facility] [address] [id number] [place] [address] Jan, [facility] [place] [facility] [address] [id number] [place] [address] Jan, [facility] [place] [facility] [address] [id number] [place] [address] Jan, [facility] [place] [facility] [address] [id number] [place] [address] Dec, [facility] [place] [facility] [address] [id number] [place] [address] Dec, [facility] [place] [facility] [address] [id number] [place] [address] Nov, [facility] [place] [facility] [address] [id number] [place] [address] Nov, [facility] [place] [facility] [address] [id number] [place] [address] Oct, [facility] [place] [facility] [address] [id number] [place] [address] Oct, [facility] [place] [facility] [address] [id number] [place] [address] Oct, [facility] [place] [facility] [address] [id number] [place] [address] Oct, [facility] [place] [facility] [address] [id number] [place] [address] Sep, [facility] [place] [facility] [address] [id number] [place] [address] Sep, [facility] [place] [facility] [address] [id number] [place] [address] Jul, [facility] [place] [facility] [address] [id number] [place] [address] Jul, [facility] [place] [facility] [address] [id number] [place] [address] Jul, [facility] [place] [facility] [address] [id number] [place] [address] Jul, [facility] [place] [facility] [address] [id number] [place] [address] June, [facility] [place] [facility] [address] [id number] [place] [address] June, [facility] [place] [facility] [address] [id number] [place] [address] June, [facility] [place] [facility] [address] [id number] [place] [address] June, [facility] [place] [facility] [address] [id number] [place] [address] Mar, [facility] [place] [facility] [address] [id number] [place] [address] Mar, [facility] [place] [facility] [address] [id number] [place] [address] Mar, [facility] [place] [facility] [address] [id number] [place] [address] Mar, [facility] [place] [facility] [address] [id number] [place] [address] Mar, [facility] [place] [facility] [address] [id number] [place] [address] Feb, [facility] [place] [facility] [address] [id number] [place] [address] Feb, [facility] [place] [facility] [address] [id number] [place] [address] Feb, [facility] [place] [facility] [address] [id number] [place] [address] Feb, [facility] [place] [facility] [address] [id number] [place] [address] Feb, [facility] [place] [facility] [address] [id number] [place] [address] Feb, [facility] [place] [facility] [address] [id number] [place] [address]843 Feb, [facility] [place] [facility] [address] [id number] [place] [address] Feb, [facility] [place] [facility] [address] [id number] [place] [address] Feb, [facility] [place] [facility] [address] [id number] [place] [address] Feb, [facility] [place] [facility] [address] [id number] [place] [address] Nov, [facility] [place] [facility] [address] [id number] [place] [address] Nov, [facility] [place] [facility] [address] [id number] [place] [address] Nov, [facility] [place] [facility] [address] [id number] [place] [address] Nov, [facility] [place] [facility] [address] [id number] [place] [address] Nov, [facility] [place] [facility] [address] [id number] [place] [address] Nov, [facility] [place] [facility] [address] [id number] [place] [address] Aug, [facility] [place] [facility] [address] [id number] [place] [address] Aug, [facility] [place] [facility] [address] [id number] [place] [address] Aug, 2012 [facility] [place] [facility] [address] [id number] [place] [address]26 Aug, [facility] [place] [facility] [address] [id number] [place] [address] 08 May, 2012 [facility] [place] [facility] [address] [id number] [place] [address] 18 Apr, 2012 [facility] [place] [facility] [address] [id number] [place] [address] Apr, [facility] [place] [facility] [address] [id number] [place] [address] 17 Jan, 2012 [facility] [place] [facility] [address] [id number] [place] [address] 17 Jan, 2012 [facility] [place] [facility] [address] [id number] [place] [address]- 4987 17 Jan, 2012 [facility] [place] [facility] [address] [id number] [place] [address]40 17 Jan, 2012 [facility] [place] [facility] [address] [id number] [place] [address] Jan, [facility] [place] [facility] [address] [id number] [place] [address] 8525 17 Jan, 2012 [facility] [place] [facility] [address] [id number] [place] [address]- [address]396 17 Jan, 2012 [facility] [place] [facility] [address] [id number] [place] [address] 0663 17 Jan, 2012 [facility] [place] [facility] [address] [id number] [place] [address]- [address]896 12 Jan, 2012 [facility] [place] [facility] [address] [id number] [place] [address] 1386 Jan, [facility] [place] [facility] [address] [id number] [place] [address] Jan, [facility] [place] [facility] [address] [id number] [place] [address]- [address] Jan, [facility] [place] [facility] [address] [id number] [place] [address]- [address] Jan, [facility] [place] [facility] [address] [id number] [place] [address]- [address]25 Dec, [facility] [place] [facility] [address] [id number] [place] [address] 1419 Dec, [facility] [place] [facility] [address] [id number] [place] [address]- [address] Dec, [facility] [place] [facility] [address] [id number] [place] [address]857 Sep, [facility] [place] [facility] [address] [id number] [place] [address]- 45[address] Sep, [facility] [place] [facility] [address] [id number] [place] [address]- 3812 Sep, [facility] [place] [facility] [address] [id number] [place] [address] 2533 Aug, [facility] [place] [facility] [address] [id number] [place] [address] 8813 Aug, [facility] [place] [facility] [address] [id number] [place] [address]15 Aug, [facility] [place] [facility] [address] [id number] [place] [address] June, [facility] [place] [facility] [address] [id number] [place] [address]297 Apr, [facility] [place] [facility] [address] [id number] [place] [address]326 Apr, [facility] [place] [facility] [address] [id number] [place] [address] 0559 Mar, [facility] [place] [facility] [address] [id number] [place] [address]- 3280 Feb, [facility] [address] [id number] [place] [address]- 7892 Feb, [facility] [place] [facility] [address] [id number] [place] [address]- 3885 Jan, [facility] [address] [id number] [place] [address] Jan, [facility] [place] [facility] [address] [id number] [place] [address]- 4935 Dec, [facility] [address] [id number] [place] [address]- [address]140 Dec, [facility] [place] [facility] [address] [id number] [place] [address]- 1639 Dec, [facility] [address] [id number] [place] [address]- 6018 Nov, [facility] [address] [id number] [place] [address]- 3727 15 Sep, 2010 [facility] [place] [facility] [address] [id number] [place] [address]- [address]643 Apr, [facility] [address] [id number] [place] [address]- 7368 16 Mar, 2010 [facility] [address] [id number] [place] [address]- [address]209 Jan, [facility] [place] [facility] [address] [id number] [place] [address]- 4020 Dec, [facility] [place] [facility] [address] [id number] [place] [address]- 3421 Nov, [facility] [place] [facility] [address] [id number] [place] [address]- 0924 Sep, [facility] [place] [facility] [address] [id number] [place] [address]- 59[address] Jul, [facility] [address] [facility] [id number] [place] [id number] Feb, [facility] [address] [facility] [id number] [place] [address]- [address] Jan, IMMUNIZATIONS No Known Immunizations SOCIAL HISTORY Never Assessed REASON FOR VISIT EMR-[facility] [place] PLAN OF CARE VITAL SIGNS MEDICATIONS Unknown [...]
--- OUTSIDE RECORDS SUMMARY | 2018-05-28 11:14 | XMS REPORT ---
Author Author INGE BUCK [facility] Address [address] [place] [address] Care Team Providers Care Refining Still Operator Name Role Phone INGE BUCK Unavailable PROBLEMS Type Condition ICD9-CM Code [id number]-OS Code Onset Dates Condition Status SNOMED Code Problem Foot pain, left M79.672 Active 83224881 Problem Cervical spinal stenosis M48.02 Active 39111283 Problem Obesity E66.9 Active 010969779 Problem Ingrowing nail L60.0 Active 497246140 Problem Cardiac disease I51.9 Active 32223668 Problem HTN (hypertension) I10 Active 46803470 Problem Other chronic pain G89.29 Active 03376568 Problem Morbid obesity E66.01 Active 390900488 Problem Recurrent right knee instability M23.51 Active 060084963 Problem 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 Active 590755168 Problem Erectile dysfunction due to arterial insufficiency N52.01 Active 269827408 Problem Lymphedema in adult patient I89.0 Active 315004608 Problem Polyneuropathy associated with underlying disease G63 Active 700789404 Problem Morbid (severe) obesity due to excess calories E66.01 Active 236441389 Problem Coronary artery disease involving [place] coronary artery of [place] 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 Active 8163911206593 Problem Right leg weakness R29.898 Active 30676819764526698 Problem Lumbar radiculopathy, chronic M54.16 Active 598463584 ALLERGIES No Information ENCOUNTERS Encounter Location Date Diagnosis [facility] [address] [facility] [id number] [address] May, [facility] [address] [facility] [id number], [place] [address] Apr, [facility]48.02 [facility] [address] [id number] Apr, Lymphedema in adult patient I89.0 ; Cervical spinal stenosis M48.02 ; Lumbar radiculopathy, chronic M54.16 ; Blister of right foot, initial encounter S90.821A and Morbid obesity E66.01 [facility] [address], [place] [address] Apr, [facility] [address] [place] [address] 09906- 2560 Apr, [facility] [id number] [place] [address] 08277- 8893 Apr, Cervical spinal stenosis M48.[address] [id number] Apr, Edema of both lower extremities R60.0 ; Morbid (severe) obesity due to excess calories E66.01 ; Abrasion of left lower extremity, initial encounter S80.812A ; Lumbar radiculopathy, chronic M54.16 ; 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 ; Coronary artery disease involving [place] coronary artery of [place] 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 ; HTN ( hypertension) I10 ; History of back surgery Z98.890 and Morbid obesity E66.01 [facility] [address], [place] [address] 13 Apr, 2018 [facility] [address], [place] [address] Apr, [facility] [address], [place] [address] 9[address] Apr, [facility] [address] [place] [address] 35427- 0409 Apr, [facility] [id number] [place] [address] 73836- 8891 04 Apr, [facility] [address] [id number] Mar, Lumbar radiculopathy, chronic M54.16 ; Coronary artery disease involving [place] coronary artery of [place] 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 ; Recurrent right knee instability M23.51 ; Other chronic pain G89.29 ; HTN ( hypertension) I10 and Mixed hyperlipidemia E78.2 [facility] [id number] [place] [address] 25043- 4853 Mar, [facility] [id number] [place] [address] 60694- 7220 Mar, Lumbar radiculopathy, chronic M54.16 and Cervical spinal stenosis M48.02 [facility] [id number] [place] [address] 81038- 4678 Mar, [facility] [address] 63147- 2877 Mar, [facility] [address] [address]- 0820 Mar, [facility] [address] 03150- 9837 Mar, Cervical spinal stenosis M48.02 [facility] [id number] [place] [address] 40965- 0782 Mar, Cervical spinal stenosis M48.02 [facility] [id number] [place] [address] 53019- 2044 Mar, Lumbar radiculopathy, chronic M54.16 [facility] [id number] [place] [address] 90816- 0510 Mar, [facility] [id number] [place] [address] 92109- 5707 Feb, Cervical spinal stenosis M48.02 and Lumbar radiculopathy, chronic M54.16 [facility] [id number] [place] [address] 82146- 7778 Feb, Lumbar radiculopathy, chronic M54.16 [facility] [id number] [place] [address] 97021- 6847 Jan, Cervical spinal stenosis M48.02 [facility] [id number] [place] [address] 01772- 9657 28 Jan, 2018 Cervical spinal stenosis M48.02 [facility] [id number] [place] [address] 82011- 1486 Jan, [facility] [id number] [place] [address] 63417- 5216 Jan, Lumbar radiculopathy, chronic M54.16 [facility] [id number] [place] [address] 86113- 1817 Jan, Cervical spinal stenosis M48.02 [facility] [id number] [place] [address] 11365- 1142 Jan, Lumbar radiculopathy, chronic M54.16 [facility] [id number] [place] [address] 34805- 4410 Jan, [facility] [id number] [place] [address] 03889- 3855 06 Jan, 2018 Cervical spinal stenosis M48.02 ; Morbid (severe) obesity due to excess calories E66.01 and BMI 50.0-59.9, adult Z68.43 [facility] [id number] [place] [address] 39516- 4904 Jan, Cervical spinal stenosis M48.02 [facility] [id number] [place] [address] 43808- 9548 30 Dec, 2017 Lumbar radiculopathy, chronic M54.16 [facility] [id number] [place] [address] 82288- 6371 Dec, Cervical spinal stenosis M48.02 [facility] [id number] [place] [address] 58689- 0277 Dec, Cervical spinal stenosis M48.02 [facility] [id number] [place] [address] 25542- 2372 14 Dec, 2017 [facility] [id number] [place] [address] 94875- 2549 Dec, Lumbar radiculopathy, chronic M54.16 [facility] [id number] [place] [address] 86561- 0936 07 Dec, 2017 Cervical spinal stenosis M48.02 [facility] [id number] [place] [address] 15235- 2736 Nov, Cardiac disease I51.9 and HTN (hypertension) I10 [facility] [id number] [place] [address] 46176- 3413 Nov, Lumbar radiculopathy, chronic M54.16 [facility] [id number] [place] [address] 59157- 6755 Nov, Cervical spinal stenosis M48.02 [facility] [id number] [place] [address] 54064- 9651 Nov, Lumbar radiculopathy, chronic M54.16 [facility] [id number] [place] [address] 19336- 8840 27 Oct, 2017 Lumbar radiculopathy, chronic M54.16 [facility] [id number] [place] [address] 81554- 0480 24 Oct, 2017 Cervical spinal stenosis M48.02 [facility] [id number] [place] [address] 88835- 9909 10 Oct, 2017 Lumbar radiculopathy, chronic M54.16 [facility] [id number] [place] [address] 78834- 6153 Sep, Cervical spinal stenosis M48.02 [facility] [id number] [place] [address] 55872 2546 Sep, Cervical spinal stenosis M48.02 [facility] [id number] [place] [address] 61792 2546 16 Sep, 2017 Lumbar radiculopathy, chronic M54.16 [facility] [address] [place] [address] 87422- 1869 Sep, Lumbar radiculopathy, chronic M54.16 and BMI 50.0-59.9, adult Z68.43 [facility] [id number] [place] [address] 72274- 4373 Aug, Cervical spinal stenosis M48.02 [facility] [id number] [place] [address] 89781- 1878 Aug, [facility] [id number] [place] [address] 89794- 5224 Jul, Cervical spinal stenosis M48.02 [facility] [id number] [place] [address] 10231- 9058 Jul, Medicare annual wellness visit, initial Z00.00 ; Morbid ( severe) obesity due to excess calories E66.01 ; Coronary artery disease involving [place] coronary artery of [place] 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 ; 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 ; Polyneuropathy associated with underlying disease G63 ; HTN (hypertension) I10 ; Mixed hyperlipidemia E78.2 ; BMI 50.0-59.9, adult Z68.43 and Encounter for immunization Z23 [facility] [id number] [place] [address] 01874- 1498 Jul, Cervical spinal stenosis M48.02 ; HTN (hypertension) I10 ; Coronary artery disease involving [place] coronary artery of [place] 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 and Right leg weakness R29.898 [facility] [address] [place] [address] 22794- 6736 June, Cervical spinal stenosis M48.02 [facility] [id number] [place] [address] 19804- 4943 June, Cervical spinal stenosis M48.02 [facility] [id number] [place] [address] 10818- 9477 May, Cervical spinal stenosis M48.02 [facility] [id number] [place] [address] 79805- 3834 07 Apr, 2017 Cervical spinal stenosis M48.02 [facility] [id number] [place] [address] 87639 -6572 14 Mar, 2017 Neck pain on right side M54.2 and BMI 50.0-59.9, adult Z68.43 [facility] [address] 72898- 3413 06 Mar, 2017 Cervical spinal stenosis M48.02 [facility] [address] 86019- 9973 Feb, Cervical spinal stenosis M48.02 [facility] [address] 03348- 3494 Feb, [facility] [address] 14289- 6596 Feb, Morbid (severe) obesity due to excess calories E66.01 and Coronary artery disease involving [place] coronary artery of [place] 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 [facility] [id number] [place] [address] 28404- 5967 05 Feb, 2017 Mixed hyperlipidemia E78.2 and HTN (hypertension) I10 [facility] [id number] [place] [address] 54523- 3953 Feb, Cervical spinal stenosis M48.02 ; HTN (hypertension) I10 ; Mixed hyperlipidemia E78.2 ; Recurrent right knee instability M23.51 and Morbid obesity E66.01 [facility] [id number] [place] [address] 43670- 1489 13 Jan, 2017 Other chronic pain G89.29 [facility] [address] 21755- 0950 16 Dec, 2016 Other chronic pain G89.29 [facility] [id number] [place] [address] 36582- 2511 Nov, Other chronic pain G89.29 [facility] [address], [place] [address]- 9725 Oct, Other chronic pain G89.29 [facility] [id number] [place] [address] 12894- 8678 Sep, Other chronic pain G89.29 [facility] [address] [place] [address] 19219- 6651 Sep, Other chronic pain G89.29 [facility] [id number] [place] [address] 78774- 9694 Sep, Tenderness of left calf M79.662 and Cervical spinal stenosis M48.02 [facility] [id number] [place] [address] 51682- 7058 Aug, Other chronic pain G89.29 [facility] [address] [place] [address] 82350- 7029 Aug, Cervical radiculopathy M54.12 [facility] [address] [place] [address] 74682 -1559 Aug, Cervical neuritis M54.12 [facility] [address] [place] [address] 41891- 7764 Jul, Other chronic pain G89.29 [facility] [address] [address] Jul, Dental caries K02.9 [facility] [address] [place] [address] 61703- 4048 Jul, Other chronic pain G89.29 [facility] [address] [place] [address] 60411- 8630 June, Other chronic pain G89.29 [facility] [address] [place] [address] [id number] May, Dental examination Z01.20 [facility] [id number] [place] [address] 68063- 0769 May, Other chronic pain G89.29 [facility] [id number] [place] [address] 21006- 3314 Apr, Cervical spinal stenosis M48.02 and Drug-induced constipation K59.03 [facility] [id number] [place] [address] 14656- 4926 13 Apr, 2016 [facility] [id number] [place] [address] 86501 2547 Apr, Other chronic pain G89.29 [facility] [id number] [place] [address] 14378- 8434 Apr, [facility] [id number] [place] [address] 63234- 9926 Mar, [facility] [id number] [place] [address] 68700- 8318 Mar, Other chronic pain G89.29 [facility] [id number] [place] [address] 87297- 9655 Feb, Other chronic pain G89.29 [facility] [id number] [place] [address] 42976- 9334 Jan, Other chronic pain G89.29 [facility] [id number] [place] [address] 10756- 9744 30 Dec, 2015 [facility] [id number] [place] [address] 30493- 4673 16 Dec, 2015 Other chronic pain G89.29 [facility] [id number] [place] [address] 08987- 0509 11 Dec, 2015 Cervical spinal stenosis M48.02 ; Encounter for immunization Z23 ; Polyneuropathy associated with underlying disease G63 and Erectile dysfunction due to arterial insufficiency N52.01 [facility] [id number] [place] [address] 06940- 5458 24 Nov, 2015 [facility] [id number] [place] [address] 18304- 6411 Nov, [facility] [id number] [place] [address] 78997- 0410 Oct, [facility] [address] 37322- 6821 Sep, [facility] [address] 94426- 5834 Aug, [facility] [address] 28537- 8654 Jul, Other chronic pain G89.29 [facility] [address] 12355 -2694 Jul, Angioedema, initial encounter T78.3XXA and Dental abscess K04.7 [facility] [facility] [address] 74286- 5597 Jul, Leg pain M79.606 [facility] [address] 67988- 9913 June, Other chronic pain G89.29 and Encounter for immunization Z23 [facility] [facility] [address] 64131- 1807 June, [facility] [id number] [place] [address] 79165- 4285 May, Leg pain M79.606 [facility] [address] 33466- 8405 Apr, Leg pain M79.606 and Cervical spinal stenosis M48.02 [facility] [facility] [address] 35181- 5949 Apr, [facility] [address] 70379- 5437 18 Mar, 2015 High ankle sprain of left lower extremity S93.432A [facility] [address] 99638- 2229 Mar, [facility] [id number] [place] [address] 11847- 5830 Mar, Left ankle pain M25.572 [facility] [id number] [place] [address] 42518- 5715 Mar, [facility] [id number] [place] [address] 08806- 3357 Mar, [facility] [id number] [place] [address] 13873- 6006 Mar, Leg pain M79.606 [facility] [id number] [place] [address] 27371- 5051 Mar, [facility] [id number] [place] [address] 23827- 1510 Mar, Ankle pain M25.579 ; Cardiac disease I51.9 ; Obesity E66.9 ; Leg pain M79.606 ; HTN (hypertension) I10 ; Ingrowing nail L60.0 ; 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 and Foot pain, left M79.672 [facility] [id number] [place] [address] 41243- 3151 Feb, [facility] [id number] [place] [address] 25270- 6520 Jan, [facility] [id number] [place] [address] 58030- 1745 Dec, Cervical spinal stenosis M48.02 and Hypertension I10 [facility] [id number] [place] [address] 45875- 1892 Dec, [facility] [id number] [place] [address] 41816- 2193 Dec, [facility] [id number] [place] [address] 50811- 7649 Dec, [facility] [address] [facility] [id number] [place] [address]- 0320 Nov, [facility] [id number] 8317 Nov, [facility] [address] [facility] [id number] [place] [address]- 2872 Oct, [facility] [address] [place] [address], [place] [address]- 5985 Oct, [facility] [address] [facility] [id number] [place] [address]- 2875 Oct, [facility] [id number] [place] [address], [place]- 5804 Oct, [facility] [address] [place] [address]- 9890 Sep, [facility] [id number] [place] [address], [place] [address]- 5931 Sep, [facility] [address], [place] [address]- 5626 Sep, Spinal stenosis in cervical region 723.0 ; Essential hypertension, benign 401.1 and Erectile dysfunction 607.84 [facility] [address], [place] [address]- 9005 Sep, [facility] [address], [place] [address]- 9818 Aug, [facility] [address], [place] [address]- 8029 Aug, [facility] [address], [place] [address]- 0812 Jul, [facility] [address] 1994 June, [facility] [address]- 1186 June, [facility] [address] [facility] [id number], [place] [address]- 1130 June, [facility] [address] [place] [address]- 5185 June, [facility] [address] [place] [address]- 0160 June, Spinal stenosis in cervical region 723.0 and Essential hypertension, benign 401.1 [facility] [address] [facility] [id number] [place] [address]- 3100 May, [facility] [address] [facility] [id number] [place] [address]- 4075 May, [facility] [address] [place] [address]- 6043 Apr, [facility] [id number] [place] [address]- 2981 Apr, [facility] [id number] [place] [address]- 2681 Apr, [facility] [id number] [place] [address]- 2818 Apr, [facility] [id number] [place] [address]- 2029 Mar, [facility] [id number] [place] [address]- 0048 Mar, [facility] [address] [facility] [id number], [place] [address]- 9017 Feb, [facility] [address] [id number] [place] [address]- 9900 Feb, [facility] [address] [facility] [id number], [place] [address]- 6851 Feb, [facility] [id number] 7689 Feb, [facility] [place] [facility] [address] [id number] [place] [address] Feb, [facility] [place] [facility] [address] [id number] [place] [address] Jan, [facility] [place] [facility] [address] [id number] [id number] [address] Jan, [facility] [place] [facility] [address] [id number] [place] [address] Jan, [facility] [place] [facility] [address] [id number] [place] [address] Jan, [facility] [place] [facility] [address] [id number] [place] [address] Dec, [facility] [place] [facility] [address] [id number] [place] [address] Dec, [facility] [place] [facility] [address] [id number] [place] [address] Nov, [facility] [place] [facility] [address] [id number] [place] [address] Nov, [facility] [place] [facility] [address] [id number] [place] [address] Oct, [facility] [place] [facility] [address] [id number] [place] [address] Oct, [facility] [place] [facility] [address] [id number] [place] [address] Oct, [facility] [place] [facility] [address] [id number] [place] [address] Oct, [facility] [place] [facility] [address] [id number] [place] [address] Sep, [facility] [place] [facility] [address] [id number] [place] [address] Sep, [facility] [place] [facility] [address] [id number] [place] [address] Jul, [facility] [place] [facility] [address] [id number] [place] [address] Jul, [facility] [place] [facility] [address] [id number] [place] [address] Jul, [facility] [place] [facility] [address] [id number] [place] [address] Jul, [facility] [place] [facility] [address] [id number] [place] [address] June, [facility] [place] [facility] [address] [id number] [place] [address] June, [facility] [place] [facility] [address] [id number] [place] [address] June, [facility] [place] [facility] [address] [id number] [place] [address] June, [facility] [place] [facility] [address] [id number] [place] [address] Mar, [facility] [place] [facility] [address] [id number] [place] [address] Mar, [facility] [place] [facility] [address] [id number] [place] [address] Mar, [facility] [place] [facility] [address] [id number] [place] [address] Mar, [facility] [place] [facility] [address] [id number] [place] [address] Mar, [facility] [place] [facility] [address] [id number] [place] [address] Feb, [facility] [place] [facility] [address] [id number] [place] [address] Feb, [facility] [place] [facility] [address] [id number] [place] [address] Feb, [facility] [place] [facility] [address] [id number] [place] [address] Feb, [facility] [place] [facility] [address] [id number] [place] [address] Feb, [facility] [place] [facility] [address] [id number] [place] [address] Feb, [facility] [place] [facility] [address] [id number] [place] [address] Feb, [facility] [place] [facility] [address] [id number] [place] [address] Feb, [facility] [place] [facility] [address] [id number] [place] [address] Feb, [facility] [place] [facility] [address] [id number] [place] [address] Feb, [facility] [place] [facility] [address] [id number] [place] [address] Nov, [facility] [place] [facility] [address] [id number] [place] [address] Nov, [facility] [place] [facility] [address] [id number] [place] [address] Nov, [facility] [place] [facility] [address] [id number] [place] [address] Nov, [facility] [place] [facility] [address] [id number] [place] [address] Nov, [facility] [place] [facility] [address] [id number] [place] [address] Nov, [facility] [place] [facility] [address] [id number] [place] [address] Aug, [facility] [place] [facility] [address] [id number] [place] [address] Aug, [facility] [place] [facility] [address] [id number] [place] [address] Aug, [facility] [address] [id number] [place] [address] Aug, [facility] [place] [facility] [address] [id number] [place] [address] 08 May, 2012 [facility] [place] [facility] [address] [id number] [place] [address] 18 Apr, 2012 [facility] [place] [facility] [address] [id number] [place] [address] Apr, [facility] [place] [facility] [address] [id number] [place] [address] Jan, [facility] [place] [facility] [address] [id number] [place] [address] Jan, [facility] [place] [facility] [address] [id number] [place] [address] Jan, [facility] [place] [facility] [address] [id number] [place] [address] Jan, [facility] [place] [facility] [address] [id number] [place] [address] Jan, [facility] [place] [facility] [address] [id number] [place] [address] Jan, [facility] [place] [facility] [address] [id number] [place] [address] Jan, [facility] [place] [facility] [address] [id number] [place] [address] Jan, [facility] [place] [facility] [address] [id number] [place] [address] 12 Jan, 2012 [facility] [place] [facility] [address] [id number] [place] [address] Jan, [facility] [place] [facility] [address] [id number] [place] [address] Jan, [facility] [place] [facility] [address] [id number] [place] [address] 10 Jan, 2012 [facility] [place] [facility] [address] [id number] [place] [address] Jan, [facility] [place] [facility] [address] [id number] [place] [address] Dec, [facility] [place] [facility] [address] [id number] [place] [address] Dec, [facility] [place] [facility] [address] [id number] [place] [address] Dec, [facility] [place] [facility] [address] [id number] [place] [address] Sep, [facility] [place] [facility] [address] [id number] [place] [address] Sep, [facility] [place] [facility] [address] [id number] [place] [address] Sep, [facility] [place] [facility] [address] [id number] [place] [address] Aug, [facility] [place] [facility] [address] [id number] [place] [address] Aug, [facility] [place] [facility] [address] [id number] [place] [address] Aug, [facility] [place] [facility] [address] [id number] [place] [address] June, [facility] [place] [facility] [address] [id number] [place] [address] Apr, [facility] [place] [facility] [address] [id number] [place] [address] Apr, [facility] [place] [facility] [address] [id number] [place] [address] Mar, [facility] [place] [facility] [address] [id number] [place] [address] Feb, [facility] [place] [facility] [address] [id number] [place] [address] Feb, [facility] [place] [facility] [address] [id number] [place] [address] Jan, [facility] [place] [facility] [address] [id number] [place] [address] Jan, [facility] [place] [facility] [address] [id number] [place] [address] Dec, [facility] [place] [facility] [address] [id number] [place] [address] Dec, [facility] [place] [facility] [address] [id number] [place] [address] Dec, [facility] [place] [facility] [address] [id number] [place] [address]- [address] Nov, [facility] [place] [facility] [address] [id number] [place] [address]- [address] 15 Sep, 2010 [facility] [place] [facility] [address] [id number] [place] [address]- [address] Apr, [facility] [place] [facility] [address] [id number] [place] [address] 16 Mar, 2010 [facility] [place] [facility] [address] [id number] [place] [address] Jan, [facility] [place] [facility] [address] [id number] [place] [address] 17 Dec, 2009 [facility] [place] [facility] [address] [id number] [place] [address] Nov, [facility] [place] [facility] [address] [id number] [place] [address] Sep, [facility] [place] [facility] [address] [id number] [place] [address] 16 Jul, 2009 [facility] [place] [facility] [address] [id number] [place] [address] Feb, [facility] [address] [facility] [id number] [place] [address] Jan, IMMUNIZATIONS No Known Immunizations SOCIAL HISTORY Never Assessed REASON FOR VISIT medication reconciliation--MT PLAN OF CARE VITAL SIGNS MEDICATIONS Medication Instructions Dosage Frequency Start Date End Date Duration Status Naproxen 500 MG TAKE ONE TABLET BY MOUTH TWICE DAILY NEEDED AFTER MEALS 30 Not-Taking Brilinta 90 MG Orally Twice a day 1 tablet 12h Mar, 30 day(s) Not-Taking Ticagrelor 90 MG Orally Twice a day 1 tablet 12h 30 day(s) Active Gabapentin 600 MG TAKE ONE TABLET BY MOUTH FOUR TIMES DAILY 30 Active Wheelchair - as directed Jan, Not-Taking Dietary Fiber Laxative Not-Taking Morphine Sulfate ER 15 mg Orally every 12 hrs 1 tablet 12h Mar, 7 days Active Nitroglycerin 0.4 MG Not-Taking Amlodipine Besylate 10 MG Orally Once a day 1 tablet 24h 30 day(s) Active Atorvastatin Calcium 80 MG Orally Once a day 1 tablet 24h Not- Taking Crutches-Aluminum - as directed Sep, Active Metoprolol Tartrate 25 MG Orally Twice a day 1 tablet with food 12h Not-Taking Wheelchair - as directed Mar, Active Aspirin 325 MG Orally Once a day 1 tablet 24h Not-Taking Baclofen 20 MG TAKE ONE TABLET BY MOUTH FOUR TIMES DAILY WITH FOOD OR MILK 30 Active Hydrocodone-Acetaminophen 7.5-325 MG Orally 3 times a day 1 tablet as needed 8h Mar, 7 days Active Wheelchair - as directed Jan, Not-Taking Lisinopril 20 mg Orally Once a day 1 tablet 24h Active Viagra 100 MG TAKE ONE TABLET BY MOUTH ONCE DAILY NEEDED 30 Not-Taking Ambien 10 mg Orally Once a day 1 tablet at bedtime as needed 24h Jul, 7 days Active RESULTS No Results PROCEDURES No Known procedures INSTRUCTIONS MEDICATIONS ADMINISTERED No Known Medications MEDICAL (GENERAL) HISTORY Type Description Date Medical History spinal compression fracture Medical History cardiovascular disease Medical History stent placed 03-07-15 Surgical History cardiac stent 03-07-15 Surgical History Cardiac stent 11/2015 Hospitalization History [place] with stent placement 03-06-15 Hospitalization History Cardiac Stent Collapsed/Heart attack 11/2015
--- OUTSIDE RECORDS SUMMARY | 2018-05-28 11:14 | XMS REPORT ---
Author Author JOLENE JOANNA [facility] Address [address] [place] [address] Care Team Providers Care Aeronautics Teacher Name Role Phone JOANNA FERNÁNDEZ Unavailable PROBLEMS Type Condition ICD9-CM Code [id number] Code Onset Dates Condition Status SNOMED Code Problem Cervical spinal stenosis M48.02 Active 46597701 Problem Ingrowing nail L60.0 Active 259348477 Problem Foot pain, left M79.672 Active 77525242 Problem HTN (hypertension) I10 Active 73349720 Problem Obesity E66.9 Active 734342031 Problem Erectile dysfunction due to arterial insufficiency N52.01 Active 799581039 Problem Other chronic pain G89.29 Active 95740607 Problem Morbid obesity E66.01 Active 058349052 Problem Lumbar radiculopathy, chronic M54.16 Active 111832741 Problem Polyneuropathy associated with underlying disease G63 Active 760180104 Problem 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 Active 740153764 Problem Cardiac disease I51.9 Active 85072263 Problem Recurrent right knee instability M23.51 Active 392015443 Problem Morbid (severe) obesity due to excess calories E66.01 Active 441496018 Problem Coronary artery disease involving [place] coronary artery of [place] 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 Active 3697560275477 Problem Right leg weakness R29.898 Active [id number] ALLERGIES No Information ENCOUNTERS Encounter Location Date Diagnosis [facility] [address] [facility] [id number] [address] Apr, [facility] [place] [address] [facility] [id number], [place] [address] Apr, Cervical spinal stenosis M48.02 [facility] [address] [place] [id number] 14 Apr, 2018 Edema of both lower extremities R60.0 ; Morbid (severe) obesity due to excess calories E66.01 ; Abrasion of left lower extremity, initial encounter S80.812A ; Lumbar radiculopathy, chronic M54.16 ; 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 ; Coronary artery disease involving [place] coronary artery of [place] 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 ; HTN ( hypertension) I10 ; History of back surgery Z98.890 and Morbid obesity E66.01 [facility] [place] [id number] [place] [address] 91405- 0677 13 Apr, 2018 [facility] [place] [id number] [place] [address] 77790- 1853 Apr, [facility] [place] [id number] [place] [address] 27551- 6477 Apr, [facility] [place] [id number] [place] [address] 55540- 1806 Apr, [facility] [place] [id number] [place] [address] 75715- 8955 Apr, [facility] [address] [place] [id number] Mar, Lumbar radiculopathy, chronic M54.16 ; Coronary artery disease involving [place] coronary artery of [place] 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 ; Recurrent right knee instability M23.51 ; Other chronic pain G89.29 ; HTN ( hypertension) I10 and Mixed hyperlipidemia E78.2 [facility] [address] [address] Mar, [facility] [place] [id number] [place] [address] 62225- 8310 Mar, Lumbar radiculopathy, chronic M54.16 and Cervical spinal stenosis M48.02 [facility] [place] [id number] [place] [address] 88372- 5572 Mar, [facility] [place] [id number] [place] [address] 88836- 6625 Mar, [facility] [place] [id number] [place] [address] 68830- 5185 12 Mar, 2018 [facility] [place] [id number] [place] [address] 27160- 5636 11 Mar, 2018 Cervical spinal stenosis M48.02 [facility] [place] [id number] [place] [address] 83280- 1746 08 Mar, 2018 Cervical spinal stenosis M48.02 [facility] [place] [id number] [place] [address] 98410- 1983 07 Mar, 2018 Lumbar radiculopathy, chronic M54.16 [facility] [place] [id number] [place] [address] 71272- 4256 05 Mar, 2018 [facility] [place] [id number] [place] [address] 39650- 7800 Feb, Cervical spinal stenosis M48.02 and Lumbar radiculopathy, chronic M54.16 [facility] [place] [id number] [place] [address] 29213- 6732 Feb, Lumbar radiculopathy, chronic M54.16 [facility] [place] [id number] [place] [address] 39811- 6625 Jan, Cervical spinal stenosis M48.02 [facility] [place] [id number] [place] [address] 83879- 4637 Jan, Cervical spinal stenosis M48.02 [facility] [place] [id number] [place] [address] 19697- 3012 Jan, [facility] [place] [id number] [place] [address] 28700- 2905 Jan, Lumbar radiculopathy, chronic M54.16 [facility] [place] [id number] [place] [address] 12359- 1330 Jan, Cervical spinal stenosis M48.02 [facility] [place] [id number] [place] [address] 56726- 8836 Jan, Lumbar radiculopathy, chronic M54.16 [facility] [facility] [address] 45761- 0584 Jan, [facility] [facility] [address] 91026- 2163 Jan, Cervical spinal stenosis M48.02 ; Morbid (severe) obesity due to excess calories E66.01 and BMI 50.0-59.9, adult Z68.43 [place] [address] 35612- 9831 Jan, Cervical spinal stenosis M48.02 [place] [address] 42724- 2645 30 Dec, 2017 Lumbar radiculopathy, chronic M54.16 [place] [address] 79142- 9142 Dec, Cervical spinal stenosis M48.02 [place] [address] 32421- 7687 Dec, Cervical spinal stenosis M48.02 [facility] [address] 72571- 2488 14 Dec, 2017 [place] [address] 63352- 1841 Dec, Lumbar radiculopathy, chronic M54.16 [facility] [address] 91547- 7559 Dec, Cervical spinal stenosis M48.02 [facility] [place] [id number] [place] [address] 74095- 4577 Nov, Cardiac disease I51.9 and HTN (hypertension) I10 [place] [facility] [address] 06075- 0340 Nov, Lumbar radiculopathy, chronic M54.16 [place] [address] 64743- 9087 Nov, Cervical spinal stenosis M48.02 [facility] [id number] [place] [address] 43494- 4333 Nov, Lumbar radiculopathy, chronic M54.16 [facility] [place] [id number] [place] [address] 32736- 1846 27 Oct, 2017 Lumbar radiculopathy, chronic M54.16 [facility] [place] [id number] [place] [address] 77498- 0735 24 Oct, 2017 Cervical spinal stenosis M48.02 [facility] [place] [id number] [place] [address] 14608- 7607 10 Oct, 2017 Lumbar radiculopathy, chronic M54.16 [facility] [place] [id number] [place] [address] 03809- 2240 Sep, Cervical spinal stenosis M48.02 [facility] [place] [id number] [place] [address] 33800- 7490 Sep, Cervical spinal stenosis M48.02 [facility] [place] [id number] [place] [address] 52544- 9672 Sep, Lumbar radiculopathy, chronic M54.16 [facility] [place] [id number] [place] [address] 89199- 2786 Sep, Lumbar radiculopathy, chronic M54.16 and BMI 50.0-59.9, adult Z68.43 [facility] [place] [id number] [place] [address] 19289- 9490 Aug, Cervical spinal stenosis M48.02 [facility] [place] [id number] [place] [address] 32345- 3106 Aug, [facility] [place] [id number] [place] [address] 06654- 3162 Jul, Cervical spinal stenosis M48.02 [facility] [place] [id number] [place] [address] 58356- 3620 Jul, Medicare annual wellness visit, initial Z00.00 ; Morbid ( severe) obesity due to excess calories E66.01 ; Coronary artery disease involving [place] coronary artery of [place] 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 ; 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 ; Polyneuropathy associated with underlying disease G63 ; HTN (hypertension) I10 ; Mixed hyperlipidemia E78.2 ; BMI 50.0-59.9, adult Z68.43 and Encounter for immunization Z23 [place] [address] 9[address]09- 1984 04 Jul, 2017 Cervical spinal stenosis M48.02 ; HTN (hypertension) I10 ; Coronary artery disease involving [place] coronary artery of [place] 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 and Right leg weakness R29.898 [place] [id number] [place] [address] 08308- 7905 June, Cervical spinal stenosis M48.02 [place] [address] 70885- 5325 June, Cervical spinal stenosis M48.02 [place] [address] 29151- 5741 May, Cervical spinal stenosis M48.02 [place] [address] 04431- 6513 Apr, Cervical spinal stenosis M48.02 [facility] [id number] [place] [address] 18988 -4141 14 Mar, 2017 Neck pain on right side M54.2 and BMI 50.0-59.9, adult Z68.43 [place] [id number] [place] [address] 79813- 5867 06 Mar, 2017 Cervical spinal stenosis M48.02 [facility] [address] 27026- 8855 Feb, Cervical spinal stenosis M48.02 [place] [address] 27437- 3003 Feb, [facility] [place] [address], [place] [address] 7981 09 Feb, 2017 Morbid (severe) obesity due to excess calories E66.01 and Coronary artery disease involving [place] coronary artery of [place] 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 [place] [id number] [place] [address] 38497- 0785 05 Feb, 2017 Mixed hyperlipidemia E78.2 and HTN (hypertension) I10 [place] [id number] [place] [address] 82523- 8264 Feb, Cervical spinal stenosis M48.02 ; HTN (hypertension) I10 ; Mixed hyperlipidemia E78.2 ; Recurrent right knee instability M23.51 and Morbid obesity E66.01 [facility] [place] [id number] [place] [address] 20221- 8573 Jan, Other chronic pain G89.29 [facility] [id number] [place] [address] 54431- 7974 Dec, Other chronic pain G89.29 [facility] [id number] [place] [address] 60110- 8159 Nov, Other chronic pain G89.29 [facility] [id number] [place] [address] 10990- 8024 Oct, Other chronic pain G89.29 [facility] [place] [id number] [place] [address] 07015- 9975 Sep, Other chronic pain G89.29 [facility] [place] [id number] [place] [address] 68001- 7352 Sep, Other chronic pain G89.29 [place] [id number] [place] [address] 32645- 6575 Sep, Tenderness of left calf M79.662 and Cervical spinal stenosis M48.02 [facility] [place] [id number] [place] [address] 83979- 2194 Aug, Other chronic pain G89.29 [facility] [place] [address], [place] [address]- 3803 Aug, Cervical radiculopathy M54.12 [facility] [id number] [place] [address] 43501 -5917 Aug, Cervical neuritis M54.12 [facility] [place] [id number] [place] [address] 04996- 3338 Jul, Other chronic pain G89.29 [facility] [id number] [place] [address] [id number] Jul, Dental caries K02.9 [facility] [place] [id number] [place] [address] 00662- 5628 Jul, Other chronic pain G89.29 [facility] [place] [id number] [place] [address] 48779- 2054 June, Other chronic pain G89.29 [facility] [id number] [place] [address] [phone] May, Dental examination Z01.20 [facility] [place] [id number] [place] [address] 47431- 2120 May, Other chronic pain G89.29 [facility] [place] [address] [place] [address] 17836- 2720 Apr, Cervical spinal stenosis M48.02 and Drug-induced constipation K59.03 [facility] [place] [id number] [place] [address] 07435- 9385 Apr, [facility] [place] [address] [place] [address] 30282- 7901 Apr, Other chronic pain G89.29 [facility] [place] [address] [place] [address] 80675- 1826 Apr, [facility] [place] [id number] [place] [address] 38466- 5887 Mar, [facility] [id number] [place] [address] 12349- 5247 Mar, Other chronic pain G89.29 [facility] [id number] [place] [address] 69677- 2654 Feb, Other chronic pain G89.29 [facility] [place] [id number] [place] [address] 92937- 0037 Jan, Other chronic pain G89.29 [facility] [place] [id number] [place] [address] 10356- 7552 Dec, [facility] [place] [address] 18259- 0520 Dec, Other chronic pain G89.29 [facility] [place] [id number] [place] [address] 73605- 7956 Dec, Cervical spinal stenosis M48.02 ; Encounter for immunization Z23 ; Polyneuropathy associated with underlying disease G63 and Erectile dysfunction due to arterial insufficiency N52.01 [facility] [place] [id number] [place] [address] 25871- 0414 Nov, [facility] [place] [id number] [place] [address] 94826- 3686 Nov, [facility] [place] [id number] [place] [address] 23244- 7072 Oct, [facility] [place] [id number] [place] [address] 69992- 5642 Sep, [facility] [place] [id number] [place] [address] 29276- 0542 Aug, [facility] [place] [id number] [place] [address] 03497- 3042 Jul, Other chronic pain G89.29 [facility] [id number] [place] [address] 08274 -4214 Jul, Angioedema, initial encounter T78.3XXA and Dental abscess K04.7 [facility] [place] [address] 25143- 7581 Jul, Leg pain M79.606 [facility] [place] [address] 93450- 4568 June, Other chronic pain G89.29 and Encounter for immunization Z23 [facility] [place] [address] 39318- 8049 June, [facility] [place] [address] 40228- 9913 May, Leg pain M79.606 [place] [address] 12139- 1062 Apr, Leg pain M79.606 and Cervical spinal stenosis M48.02 [place] [address] 54824- 8833 Apr, [place] [address] 52706- 5501 Mar, High ankle sprain of left lower extremity S93.432A [place] [address] 42703- 4796 Mar, [place] [id number] [place] [address] 34013- 8841 Mar, Left ankle pain M25.572 [facility] [place] [address] 58731- 5182 Mar, [facility] [place] [address] 86480- 1909 Mar, [facility] [place] [address] 74833- 1287 Mar, Leg pain M79.606 [facility] [place] [address] 48564- 3966 Mar, [place] [id number] [address]- 9187 Mar, Ankle pain M25.579 ; Cardiac disease I51.9 ; Obesity E66.9 ; Leg pain M79.606 ; HTN (hypertension) I10 ; Ingrowing nail L60.0 ; 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 and Foot pain, left M79.672 [facility] [place] [id number] [place] [address] 14041- 1156 Feb, [facility] [place] [id number] [place] [address] 16176- 2936 Jan, [facility] [place] [id number] [place] [address] 04026- 0276 Dec, Cervical spinal stenosis M48.02 and Hypertension I10 [facility] [id number] [place] [address] 84983- 8226 Dec, [facility] [id number] [place] [address] 99220- 4235 Dec, [facility] [id number] [place] [address] 16957- 8153 Dec, [facility] [id number] [place] [address] 00795- 5780 Nov, [facility] [id number] [place] [address] 47272- 6980 Nov, [facility] [place] [id number] [place] [address] 73123- 8907 Oct, [facility] [id number] [place] [id number]- 5733 Oct, [facility] [place] [id number] [place] [address]0971- 1515 Oct, [facility] [place] [id number] [place] [address]6481- 8220 Oct, [facility] [place] [address] [address] Sep, [facility] [place] [address] [address] Sep, [facility] [place] [id number] [address] Sep, Spinal stenosis in cervical region 723.0 ; Essential hypertension, benign 401.1 and Erectile dysfunction 607.84 [facility] [place] [address], [place] [address] Sep, [facility] [place] [id number], [place] [address] Aug, [facility] [place] [id number] [address] Aug, [facility] [place] [id number] [place] [address]- 5412 Jul, [facility] [place] [id number] [address] June, [facility] [place] [address], [place] [address] June, [facility] [place] [id number], [place] [address] June, [facility] [place] [id number] [place] [address] June, [facility] [place] [id number], [place] [address] June, Spinal stenosis in cervical region 723.0 and Essential hypertension, benign 401.1 [facility] [place] [id number], [place] [address] May, [facility] [place] [id number], [place] [address] May, [facility] [place] [id number], [place] [address] 16 Apr, 2014 [facility] [place] [facility] [address] [id number] [place] [address] 16 Apr, 2014 [facility] [place] [facility] [address] [id number] [place] [address] Apr, [facility] [place] [facility] [address] [id number] [place] [address] Apr, [facility] [place] [facility] [address] [id number] [place] [address]159 Mar, [facility] [place] [facility] [address] [id number] [place] [address] Mar, [facility] [place] [facility] [address] [id number] [place] [address] 4813 Feb, [facility] [place] [facility] [address] [id number] [place] [address]642 Feb, [facility] [place] [facility] [address] [id number] [place] [address]- 9677 Feb, [facility] [place] [facility] [address] [id number] [place] [address] Feb, [facility] [place] [facility] [address] [id number] [place] [address] Feb, [facility] [place] [facility] [address] [id number] [place] [address] Jan, [facility] [place] [facility] [address] [id number] [place] [address] Jan, [facility] [place] [facility] [address] [id number] [place] [address] Jan, [facility] [place] [facility] [address] [id number] [place] [address] Jan, [facility] [place] [facility] [address] [id number] [place] [address] Dec, [facility] [place] [facility] [address] [id number] [place] [address] Dec, [facility] [place] [facility] [address] [id number] [place] [address] Nov, [facility] [place] [facility] [address] [id number] [place] [address]74 Nov, [facility] [place] [facility] [address] [id number] [place] [address] Oct, [facility] [place] [facility] [address] [id number] [place] [address] Oct, [facility] [place] [facility] [address] [id number] [place] [address] Oct, [facility] [place] [facility] [address] [id number] [place] [address] Oct, [facility] [place] [facility] [address] [id number] [place] [address] Sep, [facility] [place] [facility] [address] [id number] [place] [address] Sep, [facility] [place] [facility] [address] [id number] [place] [address] Jul, [facility] [place] [facility] [address] [id number] [place] [address] Jul, [facility] [place] [facility] [address] [id number] [place] [address]44 Jul, [facility] [place] [facility] [address] [id number] [place] [address]- [address] Jul, [facility] [place] [facility] [address] [id number] [place] [address]90 June, [facility] [place] [facility] [address] [id number] [place] [address] June, [facility] [place] [facility] [address] [id number] [place] [address] June, [facility] [address] [id number] [place] [address] June, [facility] [place] [facility] [address] [id number] [place] [address] 9[address] Mar, [facility] [place] [facility] [address] [id number] [place] [address] 69[address] Mar, [facility] [place] [facility] [address] [id number] [place] [address] Mar, [facility] [place] [facility] [address] [id number] [place] [address] 8925 Mar, [facility] [place] [facility] [address] [id number] [place] [address] 29[address] Mar, [facility] [place] [facility] [address] [id number] [place] [address] Feb, [facility] [place] [facility] [address] [id number] [place] [address] 8628 Feb, [facility] [place] [facility] [address] [id number] [place] [address]- [address] Feb, [facility] [place] [facility] [address] [id number] [place] [address] 5895 Feb, [facility] [place] [facility] [address] [id number] [place] [address] Feb, [facility] [place] [facility] [address] [id number], [place] [address] Feb, [facility] [place] [facility] [address] [id number] [place] [address] Feb, [facility] [place] [facility] [address] [id number] [place] [address]- 0710 Feb, [facility] [place] [facility] [address] [id number] [place] [address] Feb, [facility] [place] [facility] [address] [id number] [place] [address]707 Feb, [facility] [address] [id number] [place] [address]64 Nov, [facility] [place] [facility] [address] [id number] [place] [address]684 Nov, [facility] [place] [facility] [address] [id number] [place] [address] Nov, [facility] [place] [facility] [address] [id number] [place] [address] Nov, [facility] [place] [facility] [address] [id number] [place] [address]40 Nov, [facility] [place] [facility] [address] [id number] [place] [address]- 4838 Nov, [facility] [place] [facility] [address] [id number] [place] [address] 6118 Aug, [facility] [place] [facility] [address] [id number] [place] [address]- [address] Aug, [facility] [place] [facility] [address] [id number] [place] [address] 8339 Aug, [facility] [place] [facility] [address] [id number] [place] [address] 44[address] Aug, [facility] [place] [facility] [address] [id number] [place] [address] May, [facility] [place] [facility] [address] [id number] [place] [address]- 2548 Apr, [facility] [place] [facility] [address] [id number] [place] [address] 1397 Apr, [facility] [place] [facility] [address] [id number] [place] [address]- 2546 Jan, [facility] [place] [facility] [address] [id number] [place] [address]- 2541 Jan, [facility] [place] [facility] [address] [id number] [place] [address]- [address] 17 Jan, 2012 [facility] [place] [facility] [address] [id number] [place] [address] 9896 Jan, [facility] [place] [facility] [address] [id number] [place] [address]- 9816 Jan, [facility] [place] [facility] [address] [id number] [place] [address]- 1676 Jan, [facility] [address] [id number] [place] [address] 6839 Jan, [facility] [place] [facility] [address] [id number] [place] [address]- 4866 Jan, [facility] [address] [id number] [place] [address]- 7985 Jan, [facility] [address] [id number] [place] [address]- 8521 Jan, [facility] [place] [facility] [address] [id number] [place] [address]- 1523 Jan, [facility] [place] [facility] [address] [id number] [place] [address]- 3692 Jan, [facility] [place] [facility] [address] [id number] [place] [address] Jan, [facility] [place] [facility] [address] [id number] [place] [address]- 6795 Dec, [facility] [place] [facility] [address] [id number] [place] [address]- 0238 Dec, [facility] [place] [facility] [address] [id number] [place] [address]- 5896 Dec, [facility] [place] [facility] [address] [id number] [place] [address]- 2546 Sep, [facility] [place] [facility] [address] [id number] [place] [address]- 2739 Sep, [facility] [place] [facility] [address] [id number] [place] [address]- 7954 Sep, [facility] [place] [facility] [address] [id number] [place] [address]- 5500 Aug, [facility] [place] [facility] [address] [id number] [place] [address]- 0456 Aug, [facility] [place] [facility] [address] [id number] [place] [address]- 6836 Aug, [facility] [place] [facility] [address] [id number] [place] [address]- 7102 June, [facility] [place] [facility] [address] [id number] [place] [address]- 0644 Apr, [facility] [place] [facility] [address] [id number] [place] [address]- 5612 Apr, [facility] [place] [facility] [address] [id number] [place] [address]- 0070 Mar, [facility] [place] [facility] [address] [id number] [place] [address]- 2763 Feb, [facility] [place] [facility] [address] [id number] [place] [address]- 2031 Feb, [facility] [place] [facility] [address] [id number] [place] [address]- 0009 Jan, [facility] [place] [facility] [address] [id number] [place] [address]- 9396 Jan, [facility] [place] [facility] [address] [id number] [place] [address]- 0013 Dec, [facility] [place] [facility] [address] [id number] [place] [address]- 6705 Dec, [facility] [place] [facility] [address] [id number] [place] [address]- 1147 Dec, [facility] [place] [facility] [address] [id number], [place] [address] 19 Nov, 2010 [facility] [address] [facility] [id number], [place] [address] 15 Sep, 2010 [facility] [address] [facility] [id number], [place] [address] Apr, [facility] [address] [facility] [id number], [place] [address] 16 Mar, 2010 [facility] [address] [facility] [id number], [place] [address]- 2970 Jan, [facility] [address] [facility] [id number], [place] [address]- 3905 Dec, [facility] [address] [facility] [id number], [place] [address]- 8288 Nov, [facility] [id number], [place] [address]097 Sep, [facility] [address] [id number], [place] [address] Jul, [facility] [id number], [place] [address]- 7688 Feb, [facility] [address] [id number], [place] [address] Jan, IMMUNIZATIONS No Known Immunizations SOCIAL HISTORY Never Assessed REASON FOR VISIT PLAN OF CARE VITAL SIGNS MEDICATIONS Unknown Medications RESULTS No Results PROCEDURES No Known procedures INSTRUCTIONS MEDICATIONS ADMINISTERED No Known Medications MEDICAL (GENERAL) HISTORY Type Description Date Medical History spinal compression fracture Medical History cardiovascular disease Medical History stent placed 03-07-15 Surgical History cardiac stent 03-07-15 Surgical History Cardiac stent 11/2015 Hospitalization History DC with stent placement 03-06-15 Hospitalization History Cardiac Stent Collapsed/Heart attack 11/2015
--- OUTSIDE RECORDS SUMMARY | 2018-05-28 11:15 | XMS REPORT ---
Author Author ROB RAMIREZ Organization [facility] Address [address] [place] [address] Care Team Providers Care Manufacturing Applications Engineer Name Role Phone ROB RAMIREZ Unavailable PROBLEMS Type Condition ICD9-CM Code [id number] Code Onset Dates Condition Status SNOMED Code Problem Erectile dysfunction due to arterial insufficiency N52.01 Active 680842868 Problem Recurrent right knee instability M23.51 Active 573858557 Problem Other chronic pain G89.29 Active 14153305 Problem Lumbar radiculopathy, chronic M54.16 Active 647130085 Problem Right leg weakness R29.898 Active [id number] Problem Mixed hyperlipidemia E78.2 Active 081465153 Problem Morbid obesity E66.01 Active 108444374 Problem Coronary artery disease involving [place] coronary artery of [place] 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 Active 6037722964951 Problem Morbid (severe) obesity due to excess calories E66.01 Active 955083812 Problem Cervical spinal stenosis M48.02 Active 26065304 Problem Foot pain, left M79.672 Active 25998011 Problem HTN (hypertension) I10 Active 03466932 Problem Cardiac disease I51.9 Active 27637513 Problem Ingrowing nail L60.0 Active 299146060 Problem 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 Active 960968062 Problem Obesity E66.9 Active 178342457 Problem Polyneuropathy associated with underlying disease G63 Active 915777935 ALLERGIES No Information ENCOUNTERS Encounter Location Date Diagnosis [facility] [id number] [address] Jan, Cervical spinal stenosis M48.02 [facility] [address] [address] 13 Jan, 2018 Lumbar radiculopathy, chronic M54.16 [facility] [address] [id number] [address] Jan, [facility] [id number] [place] [address] 87174- 6295 Jan, Cervical spinal stenosis M48.02 ; Morbid (severe) obesity due to excess calories E66.01 and BMI 50.0-59.9, adult Z68.43 [facility] [address] [address]- [address] Jan, Cervical spinal stenosis M48.02 [facility] [address] [address]- [address]005 30 Dec, 2017 Lumbar radiculopathy, chronic M54.16 [place] [address] [address]- [address] Dec, Cervical spinal stenosis M48.02 [place] [address] 6[address]- 1168 Dec, Cervical spinal stenosis M48.02 [place] [address] 80796- 1181 14 Dec, 2017 [place] [address] 86136- 5790 Dec, Lumbar radiculopathy, chronic M54.16 [place] [address] 85192- 0968 Dec, Cervical spinal stenosis M48.02 [place] [address] 64126- 5788 Nov, Cardiac disease I51.9 and HTN (hypertension) I10 [place] [address] 10439- 0569 Nov, Lumbar radiculopathy, chronic M54.16 [facility] [address] [address]51- 9521 Nov, Cervical spinal stenosis M48.02 [facility] [address] 76114- 2310 Nov, Lumbar radiculopathy, chronic M54.16 [facility] [id number] [place] [address] 25983- 0492 Oct, Lumbar radiculopathy, chronic M54.16 [facility] [id number] [place] [address] 53950- 8977 Oct, Cervical spinal stenosis M48.02 [facility] [id number] [place] [address] 15843- 6652 Oct, Lumbar radiculopathy, chronic M54.16 [facility] [id number] [place] [address] 39959- 2109 Sep, Cervical spinal stenosis M48.02 [facility] [id number] [place] [address] 31358- 3021 Sep, Cervical spinal stenosis M48.02 [facility] [id number] [place] [address] 30775- 7260 Sep, Lumbar radiculopathy, chronic M54.16 [facility] [id number] [place] [address] 33197- 6645 Sep, Lumbar radiculopathy, chronic M54.16 and BMI 50.0-59.9, adult Z68.43 [place] [id number] [place] [address] 02918- 2198 Aug, Cervical spinal stenosis M48.02 [facility] [id number] [place] [address] 57864- 1695 Aug, [facility] [id number] [place] [address] 72659- 3505 Jul, Cervical spinal stenosis M48.02 [facility] [id number] [place] [address] 41434- 1085 Jul, Medicare annual wellness visit, initial Z00.00 ; Morbid ( severe) obesity due to excess calories E66.01 ; Coronary artery disease involving [place] coronary artery of [place] 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 ; 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 ; Polyneuropathy associated with underlying disease G63 ; HTN (hypertension) I10 ; Mixed hyperlipidemia E78.2 ; BMI 50.0-59.9, adult Z68.43 and Encounter for immunization Z23 [facility] [address] 7[address]93- 2644 04 Jul, 2017 Cervical spinal stenosis M48.02 ; HTN (hypertension) I10 ; Coronary artery disease involving [place] coronary artery of [place] 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 and Right leg weakness R29.898 [facility] [address] [address]- 1959 June, Cervical spinal stenosis M48.02 [place] [address] 05697- 9867 June, Cervical spinal stenosis M48.02 [facility] [address] 20272- 4304 May, Cervical spinal stenosis M48.02 [facility] [address] 19925- 8534 Apr, Cervical spinal stenosis M48.02 [facility] [id number] [place] [address] 45619 -4157 14 Mar, 2017 Neck pain on right side M54.2 and BMI 50.0-59.9, adult Z68.43 [facility] [address] 76268- 2977 Mar, Cervical spinal stenosis M48.02 [facility] [address] 29150- 2697 Feb, Cervical spinal stenosis M48.02 [facility] [address] 33376- 8769 Feb, [facility] [address] 80024- 4620 Feb, Morbid (severe) obesity due to excess calories E66.01 and Coronary artery disease involving [place] coronary artery of [place] 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 [place] [id number] [place] [address] 04653- 2313 05 Feb, 2017 Mixed hyperlipidemia E78.2 and HTN (hypertension) I10 [place] [address] 36716- 7974 Feb, Cervical spinal stenosis M48.02 ; HTN (hypertension) I10 ; Mixed hyperlipidemia E78.2 ; Recurrent right knee instability M23.51 and Morbid obesity E66.01 [place] [address] 74254- 2697 Jan, Other chronic pain G89.29 [place] [address] 88041- 4472 Dec, Other chronic pain G89.29 [place] [address] 28018- 0760 Nov, Other chronic pain G89.29 [place] [address] 51310- 1177 Oct, Other chronic pain G89.29 [place] [id number] [place] [address] 82475- 1186 Sep, Other chronic pain G89.29 [place] [address] 26338- 2794 Sep, Other chronic pain G89.29 [place] [id number] [place] [address] 74096- 2684 Sep, Tenderness of left calf M79.662 and Cervical spinal stenosis M48.02 [place] [id number] [place] [address] 70417- 2330 Aug, Other chronic pain G89.29 [place] [address] 15151- 1691 Aug, Cervical radiculopathy M54.12 [facility] [address] [address] Aug, Cervical neuritis M54.12 [facility] [address] [place] [address] 95654- 2353 Jul, Other chronic pain G89.29 [facility] [id number] [place] [address] [id number] Jul, Dental caries K02.9 [facility] [id number] [place] [address] 91505- 9499 Jul, Other chronic pain G89.29 [facility] [id number] [place] [address] 16524- 0817 June, Other chronic pain G89.29 [facility] [id number] [place] [address] [id number] May, Dental examination Z01.20 [facility] [id number] [place] [address] 23018- 5330 May, Other chronic pain G89.29 [facility] [id number] [place] [address] 38970- 2712 Apr, Cervical spinal stenosis M48.02 and Drug-induced constipation K59.03 [facility] [id number] [place] [address] 97129- 3101 Apr, [facility] [id number] [place] [address] 32657- 3203 Apr, Other chronic pain G89.29 [facility] [id number] [place] [address] 90602- 3955 Apr, [facility] [id number] [place] [address] 79759- 2824 Mar, [facility] [id number] [place] [address] 65819- 6187 Mar, Other chronic pain G89.29 [facility] [id number] [place] [address] 13357- 9239 Feb, Other chronic pain G89.29 [facility] [id number] [place] [address] 42345- 2186 Jan, Other chronic pain G89.29 [facility] [id number] [place] [address] 29348- 3846 Dec, [facility] [address] 77988- 6822 Dec, Other chronic pain G89.29 [facility] [address] 65868- 5405 Dec, Cervical spinal stenosis M48.02 ; Encounter for immunization Z23 ; Polyneuropathy associated with underlying disease G63 and Erectile dysfunction due to arterial insufficiency N52.01 [facility] [address] 18011- 1679 Nov, [facility] [id number] [place] [address] 57347- 1638 Nov, [facility] [id number] [place] [address] 99254- 7826 Oct, [facility] [id number] [place] [address] 32102- 5845 Sep, [facility] [id number] [place] [address] 43047- 2420 Aug, [facility] [id number] [place] [address] 06133- 5521 Jul, Other chronic pain G89.29 [facility] [id number] [place] [address] 80050 -3849 Jul, Angioedema, initial encounter T78.3XXA and Dental abscess K04.7 [facility] [id number] [place] [address] 67644- 9946 Jul, Leg pain M79.606 [facility] [id number] [place] [address] 11073- 6509 June, Other chronic pain G89.29 and Encounter for immunization Z23 [facility] [id number] [place] [address] 35209- 7846 June, [facility] [address] 23340- 6512 May, Leg pain M79.606 [facility] [id number] [place] [address] 50348 2549 Apr, Leg pain M79.606 and Cervical spinal stenosis M48.02 [facility] [id number] [place] [address] 75440- 0687 Apr, [facility] [address] 91684- 4826 Mar, High ankle sprain of left lower extremity S93.432A [facility] [id number] [place] [address] 66462- 3843 Mar, [facility] [id number] [place] [address] 17980- 7836 Mar, Left ankle pain M25.572 [facility] [id number] [place] [address] 60729- 0893 Mar, [facility] [id number] [place] [address] 52508- 8940 Mar, [facility] [id number] [place] [address] 01716- 7058 Mar, Leg pain M79.606 [facility] [id number] [place] [address] 09840- 2893 Mar, [facility] [id number] [place] [address] 52516- 2088 Mar, Ankle pain M25.579 ; Cardiac disease I51.9 ; Obesity E66.9 ; Leg pain M79.606 ; HTN (hypertension) I10 ; Ingrowing nail L60.0 ; 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 and Foot pain, left M79.672 [facility] [id number] [place] [address] 21325- 3126 Feb, [facility] [id number] [place] [address] 52592- 3712 Jan, [facility] [id number] [place] [address] 66675- 3673 Dec, Cervical spinal stenosis M48.02 and Hypertension I10 [facility] [address] 62559- 0894 Dec, [facility] [id number] [place] [address] 35066- 2354 Dec, [facility] [id number] [place] [address] 47014- 9670 Dec, [facility] [id number] [place] [address] 67110- 1678 Nov, [facility] [id number] [place] [address] 35466- 9823 Nov, [facility] [id number] [place] [address] 81760- 8476 Oct, [facility] [id number] [place] [address] 94061- 4894 Oct, [facility] [id number] [place] [address] 62515- 6838 Oct, [facility] [id number] [place] [address] 56805- 2954 Oct, [facility] [id number] [place] [address] 96582- 2251 Sep, [facility] [address] [place] [address]- 1032 Sep, [facility] [address] [facility] [id number] 9955 Sep, Spinal stenosis in cervical region 723.0 ; Essential hypertension, benign 401.1 and Erectile dysfunction 607.84 [facility] [id number]- 8194 Sep, [facility] [address] [facility] [id number]- 5326 Aug, [facility] [id number]- 4074 Aug, [facility] [address]- 0578 Jul, [facility] [address] [address]- 1643 June, [facility] [address], [place] [address]- 6264 June, [facility] [address] [address]- 6491 June, [facility] [address] [address]- 4793 June, [facility] [id number]- 5660 June, Spinal stenosis in cervical region 723.0 and Essential hypertension, benign 401.1 [facility] [id number], [place] [address]- 4892 May, [facility] [address]- 6031 May, [facility] [id number] [address]- 4038 Apr, [facility] [address] [address]- 0052 Apr, [facility] [place] [facility] [address] [id number] [place] [address]- 6468 Apr, [facility] [place] [facility] [address] [id number] [place] [address]- 6273 Apr, [facility] [place] [facility] [address] [id number] [place] [address]- 4672 Mar, [facility] [place] [facility] [address] [id number] [place] [address]- 8614 Mar, [facility] [place] [facility] [address] [id number] [place] [address]- 0568 Feb, [facility] [place] [facility] [address] [id number] [place] [address]- 5974 Feb, [facility] [place] [facility] [address] [id number] [place] [address]- 1526 Feb, [facility] [place] [facility] [address] [id number] [place] [address]- 7500 Feb, [facility] [place] [facility] [address] [id number] [place] [address]- 8594 Feb, [facility] [place] [facility] [address] [id number] [place] [address]- 8704 Jan, [facility] [place] [facility] [address] [id number] [place] [address]- 6596 Jan, [facility] [place] [facility] [address] [id number] [place] [address]- 0880 Jan, [facility] [place] [facility] [address] [id number] [place] [address]- 0869 Jan, [facility] [place] [facility] [address] [id number] [place] [address]- 6836 Dec, [facility] [place] [facility] [address] [id number] [place] [address]- 7315 Dec, [facility] [place] [facility] [address] [id number] [place] [address]- 0388 Nov, [facility] [address] [id number] [place] [address]- 2079 Nov, [facility] [place] [facility] [address] [id number] [place] [address]- 4563 Oct, [facility] [place] [facility] [address] [id number] [place] [address]- 2541 Oct, [facility] [place] [facility] [address] [id number] [place] [address]- 2883 Oct, [facility] [place] [facility] [address] [id number] [place] [address]- 6511 Oct, [facility] [place] [facility] [address] [id number] [place] [address]- 4590 Sep, [facility] [place] [facility] [address] [id number] [place] [address]- 8707 Sep, [facility] [place] [facility] [address] [id number] [place] [address]- 5208 Jul, [facility] [place] [facility] [address] [id number] [place] [address]- 1316 Jul, [facility] [place] [facility] [address] [id number] [place] [address]- 3013 Jul, [facility] [place] [facility] [address] [id number] [place] [address]- 3925 Jul, [facility] [place] [facility] [address] [id number] [place] [address]- 3761 June, [facility] [place] [facility] [address] [id number] [place] [address]- 2842 June, [facility] [place] [facility] [address] [id number] [place] [address]- 1493 June, [facility] [place] [facility] [address] [id number] [place] [address]- 2506 June, [facility] [place] [facility] [address] [id number] [place] [address]- 3319 Mar, [facility] [place] [facility] [address] [id number] [place] [address]- 8734 Mar, [facility] [place] [facility] [address] [id number] [place] [address]- 6834 Mar, [facility] [place] [facility] [address] [id number] [place] [address]- 9204 Mar, [facility] [place] [facility] [address] [id number] [place] [address]- 0881 Mar, [facility] [place] [facility] [address] [id number] [place] [address]- 0008 Feb, [facility] [place] [facility] [address] [id number] [place] [address]- 0748 Feb, [facility] [place] [facility] [address] [id number] [place] [address]- 0916 Feb, [facility] [place] [facility] [address] [id number] [place] [address]- 3989 Feb, [facility] [place] [facility] [address] [id number] [place] [address]- 4194 Feb, [facility] [place] [facility] [address] [id number] [address]- 3057 Feb, [facility] [place] [facility] [address] [id number][place] [address]- 6823 Feb, [facility] [place] [facility] [address] [id number] [place] [address]- 7397 Feb, [facility] [place] [facility] [address] [id number][place] [address]- 3206 Feb, [facility] [place] [facility] [address] [id number] [place] [address]- 7170 Feb, [facility] [place] [facility] [address] [id number] [place] [address]- 2393 Nov, [facility] [address] [id number] [place] [address]- 5899 Nov, [facility] [place] [facility] [address] [id number] [place] [address]- 1883 Nov, [facility] [place] [facility] [address] [id number] [place] [address]- 7851 Nov, [facility] [place] [facility] [address] [id number] [place] [address]- 4374 Nov, [facility] [place] [facility] [address] [id number] [place] [address]- 1435 Nov, [facility] [place] [facility] [address] [id number] [place] [address]- 8192 Aug, [facility] [address] [id number] [place] [address]- 9136 Aug, [facility] [place] [facility] [address] [id number] [place] [address]- 5556 Aug, [facility] [place] [facility] [address] [id number] [place] [address]- 9844 Aug, [facility] [place] [facility] [address] [id number] [place] [address]- 1938 May, [facility] [place] [facility] [address] [id number] [place] [address] Apr, [facility] [place] [facility] [address] [id number] [place] [address] Apr, [facility] [place] [facility] [address] [id number] [place] [address] Jan, [facility] [place] [facility] [address] [id number] [place] [address] Jan, [facility] [place] [facility] [address] [id number] [place] [address] Jan, [facility] [place] [facility] [address] [id number] [place] [address] 17 Jan, 2012 [facility] [place] [facility] [address] [id number] [place] [address] Jan, [facility] [place] [facility] [address] [id number] [place] [address] 17 Jan, 2012 [facility] [place] [facility] [address] [id number] [place] [address] Jan, [facility] [place] [facility] [address] [id number] [place] [address] 17 Jan, 2012 [facility] [place] [facility] [address] [id number] [place] [address] Jan, [facility] [place] [facility] [address] [id number] [place] [address] Jan, [facility] [place] [facility] [address] [id number] [place] [address] Jan, [facility] [place] [facility] [address] [id number] [place] [address] Jan, [facility] [place] [facility] [address] [id number] [place] [address] Jan, [facility] [place] [facility] [address] [id number] [place] [address] Dec, [facility] [place] [facility] [address] [id number] [place] [address] Dec, [facility] [place] [facility] [address] [id number] [place] [address] Dec, [facility] [place] [facility] [address] [id number] [place] [address] Sep, [facility] [place] [facility] [address] [id number] [place] [address] Sep, [facility] [place] [facility] [address] [id number] [place] [address] Sep, [facility] [address] [id number] [place] [address] Aug, [facility] [place] [facility] [address] [id number] [place] [address] Aug, [facility] [place] [facility] [address] [id number] [place] [address] Aug, [facility] [place] [facility] [address] [id number] [place] [address] June, [facility] [place] [facility] [address] [id number] [place] [address] Apr, [facility] [place] [facility] [address] [id number] [place] [address] Apr, [facility] [place] [facility] [address] [id number] [place] [address] Mar, [facility] [place] [facility] [address] [id number] [place] [address] Feb, [facility] [place] [facility] [address] [id number] [place] [address] Feb, [facility] [place] [facility] [address] [id number] [place] [address] Jan, [facility] [place] [facility] [address] [id number] [place] [address] Jan, [facility] [place] [facility] [address] [id number] [place] [address] Dec, [facility] [place] [facility] [address] [id number] [place] [address] Dec, [facility] [place] [facility] [address] [id number] [place] [address] Dec, [facility] [place] [facility] [address] [id number] [place] [address] Nov, [facility] [place] [facility] [address] [id number] [address] 15 Sep, 2010 [facility] [id number] [address] Apr, [facility] [id number] [address] 16 Mar, 2010 [facility] [id number] [address] Jan, [facility] [id number] [address] Dec, [facility] [id number] [address] Nov, [facility] [id number] [address] Sep, [facility] [id number] [address] Jul, [facility] [id number] [address] Feb, [facility] [id number] [address] Jan, IMMUNIZATIONS No Known Immunizations SOCIAL HISTORY [...]
--- OUTSIDE RECORDS SUMMARY | 2018-05-28 11:15 | XMS REPORT ---
Author Author ROB RAMIREZ Organization [facility] Address [address] [place] [address] Care Team Providers Care Newspaper Delivery Driver Name Role Phone ROB RAMIREZ Unavailable PROBLEMS Type Condition ICD9-CM Code JWV49-FR Code Onset Dates Condition Status SNOMED Code Problem Erectile dysfunction due to arterial insufficiency N52.01 Active 037678621 Problem Recurrent right knee instability M23.51 Active 505662276 Problem Other chronic pain G89.29 Active 60279702 Problem Lumbar radiculopathy, chronic M54.16 Active 031721743 Problem Right leg weakness R29.898 Active [id number] Problem Mixed hyperlipidemia E78.2 Active 913320538 Problem Morbid obesity E66.01 Active 000100219 Problem 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 Active [id number] Problem Morbid (severe) obesity due to excess calories E66.01 Active 580818677 Problem Cervical spinal stenosis M48.02 Active 52227856 Problem Foot pain, left M79.672 Active 77862086 Problem HTN (hypertension) I10 Active 47287765 Problem Cardiac disease I51.9 Active 69137126 Problem Ingrowing nail L60.0 Active 796775332 Problem 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 Active 079770783 Problem Obesity E66.9 Active 559985394 Problem Polyneuropathy associated with underlying disease G63 Active 924345781 ALLERGIES No Information ENCOUNTERS Encounter Location Date Diagnosis [facility] [id number] [address] Jan, Lumbar radiculopathy, chronic M54.16 [facility] [id number] [address] Jan, [facility] [id number] [address] Jan, Cervical spinal stenosis M48.02 ; Morbid (severe) obesity due to excess calories E66.01 and BMI 50.0-59.9, adult Z68.43 [facility] [address] [address]- [address] Jan, Cervical spinal stenosis M48.02 [facility] [address] [address]- [address] Dec, Lumbar radiculopathy, chronic M54.16 [facility] [address] [address]- 6659 Dec, Cervical spinal stenosis M48.02 [place] [address] [address]- 5732 Dec, Cervical spinal stenosis M48.02 [place] [address] [address]- [address] 14 Dec, 2017 [facility] [address] [address]- [address] Dec, Lumbar radiculopathy, chronic M54.16 [place] [address] [address]- 7166 Dec, Cervical spinal stenosis M48.02 [facility] [address] [address]- 7[address] Nov, Cardiac disease I51.9 and HTN (hypertension) I10 [facility] [address] [address]- 8[address] Nov, Lumbar radiculopathy, chronic M54.16 [facility] [address] [address]- 5362 Nov, Cervical spinal stenosis M48.02 [facility] [address] [address]32- 7779 Nov, Lumbar radiculopathy, chronic M54.16 [facility] [address] [address]- 8039 Oct, Lumbar radiculopathy, chronic M54.16 [place] [id number] [place] [address] 96357- 0272 24 Oct, 2017 Cervical spinal stenosis M48.02 [place] [id number] [place] [address] 96014- 4387 Oct, Lumbar radiculopathy, chronic M54.16 [place] [id number] [place] [address] 20597- 0718 Sep, Cervical spinal stenosis M48.02 [place] [id number] [place] [address] 70914- 0267 Sep, Cervical spinal stenosis M48.02 [place] [id number] [place] [address] 93567- 7718 Sep, Lumbar radiculopathy, chronic M54.16 [place] [id number] [place] [address] 26682- 5886 Sep, Lumbar radiculopathy, chronic M54.16 and BMI 50.0-59.9, adult Z68.43 [place] [id number] [place] [address] 85140- 3542 Aug, Cervical spinal stenosis M48.02 [place] [id number] [place] [address] 24464- 2800 Aug, [place] [id number] [place] [address] 46327- 4286 Jul, Cervical spinal stenosis M48.02 [place] [id number] [place] [address] 92385- 4190 05 Jul, 2017 Medicare annual wellness visit, initial Z00.00 ; Morbid ( severe) obesity due to excess calories E66.01 ; 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 ; 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 ; Polyneuropathy associated with underlying disease G63 ; HTN (hypertension) I10 ; Mixed hyperlipidemia E78.2 ; BMI 50.0-59.9, adult Z68.43 and Encounter for immunization Z23 [place] [address] [address]- 8[address] Jul, Cervical spinal stenosis M48.02 ; HTN (hypertension) I10 ; 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 and Right leg weakness R29.898 [place] [address] 82629- 3267 June, Cervical spinal stenosis M48.02 [place] [address] 11777- 9897 June, Cervical spinal stenosis M48.02 [place] [address] 54447- 8620 May, Cervical spinal stenosis M48.02 [place] [address] 12687- 8363 Apr, Cervical spinal stenosis M48.02 [facility] [address] [address] -[address]68 14 Mar, 2017 Neck pain on right side M54.2 and BMI 50.0-59.9, adult Z68.43 [place] [address] 71466- 1721 06 Mar, 2017 Cervical spinal stenosis M48.02 [place] [address] 99134- 7360 Feb, Cervical spinal stenosis M48.02 [place] [address] 71431- 6252 Feb, [place] [address] 81096- 9849 Feb, Morbid (severe) obesity due to excess calories E66.01 and 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 [place] [id number] [place] [address] 93101- 0516 Feb, Mixed hyperlipidemia E78.2 and HTN (hypertension) I10 [place] [id number] [place] [address] 55727- 0987 Feb, Cervical spinal stenosis M48.02 ; HTN (hypertension) I10 ; Mixed hyperlipidemia E78.2 ; Recurrent right knee instability M23.51 and Morbid obesity E66.01 [place] [address] 90425- 3966 Jan, Other chronic pain G89.29 [place] [address] 77658- 5704 Dec, Other chronic pain G89.29 [place] [address] 37850- 5024 Nov, Other chronic pain G89.29 [place] [address] 23917- 2448 Oct, Other chronic pain G89.29 [place] [id number] [place] [address] 53001- 2876 Sep, Other chronic pain G89.29 [place] [id number] [place] [address] 60549- 7081 Sep, Other chronic pain G89.29 [place] [id number] [place] [address] 26166- 4609 Sep, Tenderness of left calf M79.662 and Cervical spinal stenosis M48.02 [facility] [id number] [place] [address] 92649- 6233 Aug, Other chronic pain G89.29 [facility] [id number] [place] [address] 52330- 1004 Aug, Cervical radiculopathy M54.12 [facility] [id number] [place] [address] 61434 -1148 Aug, Cervical neuritis M54.12 [facility] [address], [place] [address]- 2989 Jul, Other chronic pain G89.29 [facility] [address] [id number] Jul, Dental caries K02.9 [facility] [id number] [place] [address] 76846- 0555 Jul, Other chronic pain G89.29 [facility] [id number] [place] [address] 420801- 0393 June, Other chronic pain G89.29 [facility] [id number] [place] [address] [id number] May, Dental examination Z01.20 [facility] [id number] [place] [address] 20253- 5147 May, Other chronic pain G89.29 [facility] [id number] [place] [address] 97285- 1420 Apr, Cervical spinal stenosis M48.02 and Drug-induced constipation K59.03 [facility] [id number] [place] [address] 29184- 2437 Apr, [facility] [address], [place] [address] Apr, Other chronic pain G89.29 [facility] [id number] [place] [address] 71049- 4890 Apr, [facility] [address], [place] [address]- 8097 Mar, [facility] [id number] [place] [address] 531538- 9725 Mar, Other chronic pain G89.29 [facility] [address], [place] [address]- 5865 Feb, Other chronic pain G89.29 [facility] [id number] [place] [address] 50404- 2261 Jan, Other chronic pain G89.29 [facility] [id number] [place] [address] 86391- 4855 Dec, [facility] [id number] [place] [address] 33960- 1206 Dec, Other chronic pain G89.29 [facility] [id number] [place] [address] 16887- 5956 Dec, Cervical spinal stenosis M48.02 ; Encounter for immunization Z23 ; Polyneuropathy associated with underlying disease G63 and Erectile dysfunction due to arterial insufficiency N52.01 [facility] [id number] [place] [address] 53336- 6304 Nov, [facility] [address] 32325- 6263 Nov, [facility] [id number] [place] [address] 13368- 8260 Oct, [facility] [address] 13479- 6933 Sep, [facility] [id number] [place] [address] 53445- 4258 Aug, [facility] [id number] [place] [address] 36202- 9267 Jul, Other chronic pain G89.29 [facility] [id number] [place] [address] 63068 -1782 Jul, Angioedema, initial encounter T78.3XXA and Dental abscess K04.7 [facility] [id number] [place] [address] 16216- 0721 Jul, Leg pain M79.606 [facility] [id number] [place] [address] 52349- 0884 June, Other chronic pain G89.29 and Encounter for immunization Z23 [facility] [id number] [place] [address] 96683- 1209 June, [facility] [id number] [place] [address] 88632- 9676 May, Leg pain M79.606 [facility] [address] 13737- 7385 Apr, Leg pain M79.606 and Cervical spinal stenosis M48.02 [facility] [id number] [place] [address] 16778- 6268 Apr, [facility] [address] 72188- 8947 Mar, High ankle sprain of left lower extremity S93.432A [place] [address] 23914- 0420 Mar, [facility] [id number] [place] [address] 07427- 4384 Mar, Left ankle pain M25.572 [facility] [id number] [place] [address] 14672- 0923 Mar, [facility] [id number] [place] [address] 38850- 5346 Mar, [facility] [id number] [place] [address] 49651- 6980 Mar, Leg pain M79.606 [facility] [id number] [place] [address] 23094- 8310 Mar, [facility] [address] 61047- 8489 Mar, Ankle pain M25.579 ; Cardiac disease I51.9 ; Obesity E66.9 ; Leg pain M79.606 ; HTN (hypertension) I10 ; Ingrowing nail L60.0 ; 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 and Foot pain, left M79.672 [facility] [id number] [place] [address] 91425- 1093 Feb, [facility] [id number] [place] [address] 55190- 3286 Jan, [facility] [id number] [place] [address] 94332- 4787 Dec, Cervical spinal stenosis M48.02 and Hypertension I10 [facility] [id number] [place] [address] 00800- 2107 Dec, [facility] [id number] [place] [address] 96027- 6415 Dec, [facility] [id number] [place] [address] 95288- 6134 Dec, [facility] [id number] [place] [address] 56574- 9087 Nov, [facility] [id number] [place] [address] 78583- 4843 Nov, [facility] [id number] [place] [address] 28674- 9734 Oct, [facility] [id number] [place] [address] 08620- 1492 Oct, [facility] [id number] [place] [address] 94036- 0968 Oct, [facility] [id number] [place] [address] 12081- 5663 Oct, [facility] [id number] [place] [address] 21468- 7333 Sep, [facility] [id number] [place] [address] 12656- 5027 Sep, [facility] [id number] [place] [address] 41173- 4758 Sep, Spinal stenosis in cervical region 723.0 ; Essential hypertension, benign 401.1 and Erectile dysfunction 607.84 [facility] [address] [facility] [id number] [address]- 4141 Sep, [facility] [address] [facility] [id number]- 1232 Aug, [facility] [address] [facility] [id number], [place] [address]- 3338 Aug, [facility] [address] [facility] [id number] 5519 Jul, [facility] [address] [facility] [id number], [place] [address]- 9100 June, [facility] [id number], [place] [address]- 8321 June, [facility] [id number], [place] [address]- 2858 June, [facility] [id number], [place] [address]- 6318 June, [facility] [id number], [place] [address]- 7027 June, Spinal stenosis in cervical region 723.0 and Essential hypertension, benign 401.1 [facility] [id number], [place] [address]- 7571 May, [facility] [address] [facility] [id number], [place] [address]- 5621 May, [facility] [address] [facility] [id number]33[place]- 1122 Apr, [facility] [address] [facility] [id number][place] [address]- 1089 Apr, [facility] [id number], [place] [address]- 2192 Apr, [facility] [place] [facility] [address] [id number] [place] [address]- 1026 Apr, [facility] [place] [facility] [address] [id number] [place] [address]- 2445 Mar, [facility] [place] [facility] [address] [id number] [place] [address]- 3431 Mar, [facility] [place] [facility] [address] [id number] [place] [address]- 6310 Feb, [facility] [place] [facility] [address] [id number] [place] [address]- 4984 Feb, [facility] [place] [facility] [address] [id number] [place] [address]- 1619 Feb, [facility] [place] [facility] [address] [id number] [place] [address]- 4508 Feb, [facility] [place] [facility] [address] [id number] [place] [address]- 5551 Feb, [facility] [place] [facility] [address] [id number] [place] [address]- 0396 Jan, [facility] [place] [facility] [address] [id number] [place] [address]- 1820 Jan, [facility] [place] [facility] [address] [id number] [place] [address]- 4998 Jan, [facility] [place] [facility] [address] [id number], [place] [address]- 4235 Jan, [facility] [place] [facility] [address] [id number] [place] [address]- 2956 Dec, [facility] [place] [facility] [address] [id number] [place] [address]- 0150 Dec, [facility] [place] [facility] [address] [id number]- 8822 16 Nov, 2013 [facility] [place] [facility] [address] [id number], [place] [address]- 4187 Nov, [facility] [place] [facility] [address] [id number] [place] [address]- 0442 Oct, [facility] [place] [facility] [address] [id number] [place] [address]- 4452 Oct, [facility] [place] [facility] [address] [id number] [place] [address]- 4826 Oct, [facility] [place] [facility] [address] [id number] [place] [address]- 3087 Oct, [facility] [place] [facility] [address] [id number] [place] [address]- 6603 Sep, [facility] [place] [facility] [address] [id number] [place] [address]- 7654 Sep, [facility] [place] [facility] [address] [id number] [place] [address]- 2752 Jul, [facility] [place] [facility] [address] [id number] [place] [address]- 7097 Jul, [facility] [place] [facility] [address] [facility] [id number] [place] [address]- 5781 Jul, [facility] [place] [facility] [address] [facility] [id number] [place] [address]- 0296 Jul, [facility] [place] [facility] [address] [id number] [place] [address]- 6728 June, [facility] [place] [facility] [address] [id number] [place] [address]- 7699 June, [facility] [place] [facility] [address] [id number] [place] [address]- 1420 June, [facility] [place] [facility] [address] [id number] [place] [address]- 9214 June, [facility] [place] [facility] [address] [id number] [place] [address]- 9700 Mar, [facility] [place] [facility] [address] [id number] [place] [address]- 7116 Mar, [facility] [place] [facility] [address] [id number] [place] [address]- 0796 Mar, [facility] [place] [facility] [address] [id number] [place] [address]- 5100 Mar, [facility] [place] [facility] [address] [id number] [place] [address]- 7783 Mar, [facility] [place] [facility] [address] [id number] [place] [address]- 4061 Feb, [facility] [place] [facility] [address] [id number] [place] [address]- 5090 Feb, [facility] [place] [facility] [address] [id number] [place] [address]- 8550 Feb, [facility] [place] [facility] [address] [id number] [place] [address]- 1311 Feb, [facility] [place] [facility] [address] [id number] [place] [address]- 9995 Feb, [facility] [place] [facility] [address] [id number] [place] [address]- 3414 Feb, [facility] [place] [facility] [address] [id number] [place] [address]- 3316 Feb, [facility] [place] [facility] [address] [id number] [place] [address]- 3761 Feb, [facility] [place] [facility] [address] [id number] [place] [address]- 6295 Feb, [facility] [place] [facility] [address] [id number] [place] [address]- 9657 Feb, [facility] [place] [facility] [address] [id number] [place] [address]- 8744 Nov, [facility] [place] [facility] [address] [id number] [place] [address]- 2546 Nov, [facility] [place] [facility] [address] [id number] [place] [address]- 3164 Nov, [facility] [place] [facility] [address] [id number] [place] [address]- 3317 Nov, [facility] [place] [facility] [address] [id number] [place] [address]- 6239 Nov, [facility] [place] [facility] [address] [id number] [place] [address]- 9856 Nov, [facility] [place] [facility] [address] [id number] [place] [address]- 2553 Aug, [facility] [place] [facility] [address] [id number] [place] [address] Aug, [facility] [place] [facility] [address] [id number] [place] [address] Aug, [facility] [place] [facility] [address] [id number] [place] [address] Aug, [facility] [place] [facility] [address] [id number] [place] [address] May, [facility] [place] [facility] [address] [id number] [place] [address] Apr, [facility] [place] [facility] [address] [id number] [place] [address] Apr, [facility] [place] [facility] [address] [id number] [place] [address] Jan, [facility] [place] [facility] [address] [id number] [place] [address] Jan, [facility] [place] [facility] [address] [id number] [place] [address] Jan, [facility] [place] [facility] [address] [id number] [place] [address] Jan, [facility] [place] [facility] [address] [id number] [place] [address] 17 Jan, 2012 [facility] [address] [id number] [place] [address] 17 Jan, 2012 [facility] [place] [facility] [address] [id number] [place] [address]- [address] 17 Jan, 2012 [facility] [address] [id number] [place] [address] 17 Jan, 2012 [facility] [address] [id number] [place] [address] 12 Jan, 2012 [facility] [address] [id number] [place] [address]- [address] Jan, [facility] [address] [id number] [place] [address] Jan, [facility] [address] [id number] [place] [address] Jan, [facility] [address] [id number] [place] [address] Jan, [facility] [address] [id number] [place] [address] Dec, [facility] [address] [id number] [place] [address] Dec, [facility] [place] [facility] [address] [id number] [place] [address] Dec, [facility] [address] [id number] [place] [address] Sep, [facility] [place] [facility] [address] [id number] [place] [address] Sep, [facility] [place] [facility] [address] [id number] [place] [address] Sep, [facility] [place] [facility] [address] [id number] [place] [address] Aug, [facility] [address] [id number] [place] [address] Aug, [facility] [place] [facility] [address] [id number] [place] [address] Aug, [facility] [place] [facility] [address] [id number] [place] [address] June, [facility] [place] [facility] [address] [id number] [place] [address] Apr, [facility] [place] [facility] [address] [id number] [place] [address] Apr, [facility] [place] [facility] [address] [id number] [place] [address] Mar, [facility] [place] [facility] [address] [id number] [place] [address] Feb, [facility] [place] [facility] [address] [id number] [place] [address] Feb, [facility] [place] [facility] [address] [id number] [place] [address] Jan, [facility] [place] [facility] [address] [id number] [place] [address] Jan, [facility] [place] [facility] [address] [id number] [place] [address] Dec, [facility] [place] [facility] [address] [id number] [place] [address] Dec, [facility] [place] [facility] [address] [id number] [place] [address] Dec, [facility] [place] [facility] [address] [id number] [place] [address] Nov, [facility] [place] [facility] [address] [id number] [place] [address] Sep, [facility] [place] [facility] [address] [id number] [address] Apr, 2010 [facility] [address] [id number] [address] Mar, [facility] [address] [id number] [address] Jan, [facility] [address] [id number], [place] [address] Dec, [facility] [id number] [address] Nov, [facility] [id number] [address] Sep, [facility] [id number] [address] Jul, [facility] [id number] [address] Feb, [facility] [address] [id number], [place] [address] Jan, IMMUNIZATIONS No Known Immunizations SOCIAL HISTORY Never Assessed REASON FOR VISIT Controlled Med Refill 01/26 PLAN OF CARE VITAL SIGNS MEDICATIONS Medication Instructions Dosage Frequency Start Date End Date Duration Status Morphine Sulfate ER 15 mg Orally every 12 hrs 1 tablet 12h 14 Jan, 2018 14 days Active RESULTS No Results PROCEDURES [...]
--- OUTSIDE RECORDS SUMMARY | 2018-05-28 11:16 | XMS REPORT ---
Author Author ROB RAMIREZ Organization 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 Designer Name Role Phone ROB RAMIREZ Unavailable PROBLEMS Type Condition ICD9-CM Code SQF45-QY Code Onset Dates Condition Status SNOMED Code Problem Erectile dysfunction due to arterial insufficiency N52.01 Active 278859884 Problem Recurrent right knee instability M23.51 Active 034088293 Problem Other chronic pain G89.29 Active 96859415 Problem Lumbar radiculopathy, chronic M54.16 Active 582846370 Problem Right leg weakness R29.898 Active [id number] Problem Mixed hyperlipidemia E78.2 Active 624378680 Problem Morbid obesity E66.01 Active 883928453 Problem Coronary artery disease involving ione coronary artery of ione 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 Active [id number] Problem Morbid (severe) obesity due to excess calories E66.01 Active 152629176 Problem Cervical spinal stenosis M48.02 Active 17816147 Problem Foot pain, left M79.672 Active 10937516 Problem HTN (hypertension) I10 Active 66243491 Problem Cardiac disease I51.9 Active 40261933 Problem Ingrowing nail L60.0 Active 657419479 Problem 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 Active 236505161 Problem Obesity E66.9 Active 780291329 Problem Polyneuropathy associated with underlying disease G63 Active 316332286 ALLERGIES Substance Reaction Event Type Date Status Metoprolol Tartrate fatigue Drug Allergy Jan, Active ENCOUNTERS Encounter Location Date Diagnosis [facility] [address] [facility] [id number] [address] Jan, [facility] [address] [id number] [address] Jan, Cervical spinal stenosis M48.02 ; Morbid (severe) obesity due to excess calories E66.01 and BMI 50.0-59.9, adult Z68.43 [facility] [id number] [place] [address] 32722- 5193 Jan, Cervical spinal stenosis M48.02 [facility] [id number] [place] [address] 49581- 8636 30 Dec, 2017 Lumbar radiculopathy, chronic M54.16 [facility] [address] 31648- 0986 27 Dec, 2017 Cervical spinal stenosis M48.02 [facility] [address] 40904- 8845 Dec, Cervical spinal stenosis M48.02 [facility] [address] 72598- 1102 14 Dec, 2017 [facility] [address] 13557- 5742 Dec, Lumbar radiculopathy, chronic M54.16 [facility] [address] 37729- 2346 Dec, Cervical spinal stenosis M48.02 [facility] [address] 97797- 7696 Nov, Cardiac disease I51.9 and HTN (hypertension) I10 [place] [id number] [place] [address] 57267- 9136 Nov, Lumbar radiculopathy, chronic M54.16 [facility] [id number] [place] [address] 59637- 0996 Nov, Cervical spinal stenosis M48.02 [facility] [address] 38738- 0843 10 Nov, 2017 Lumbar radiculopathy, chronic M54.16 [facility] [id number] [place] [address] 01634- 7533 27 Oct, 2017 Lumbar radiculopathy, chronic M54.16 [facility] [address] [address] 37[address] 24 Oct, 2017 Cervical spinal stenosis M48.02 [facility] [id number] [place] [address] 30071- 2276 Oct, Lumbar radiculopathy, chronic M54.16 [facility] [id number] [place] [address] 79432- 9618 Sep, Cervical spinal stenosis M48.02 [facility] [id number] [place] [address] 74503- 4293 Sep, Cervical spinal stenosis M48.02 [facility] [id number] [place] [address] 75661- 3354 Sep, Lumbar radiculopathy, chronic M54.16 [facility] [id number] [place] [address] 48997- 8774 Sep, Lumbar radiculopathy, chronic M54.16 and BMI 50.0-59.9, adult Z68.43 [place] [id number] [place] [address] 58619- 0552 Aug, Cervical spinal stenosis M48.02 [facility] [id number] [place] [address] 70217- 4587 Aug, [place] [id number] [place] [address] 79593- 3124 Jul, Cervical spinal stenosis M48.02 [place] [address] [place] [address] 08919- 8671 05 Jul, 2017 Medicare annual wellness visit, [...] adult Z68.43 and Encounter for immunization Z23 [place] [address] 41214- 6757 Jul, Cervical spinal stenosis M48.02 ; HTN (hypertension) I10 ; Coronary artery disease involving ione coronary artery of ione 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 and Right leg weakness R29.898 [place] [address] 93536- 9544 June, Cervical spinal stenosis M48.02 [place] [address] 30834- 8197 June, Cervical spinal stenosis M48.02 [place] [address] 38510- 8930 May, Cervical spinal stenosis M48.02 [place] [address] 44498- 4790 Apr, Cervical spinal stenosis M48.02 [facility] [address] 39811 -6449 Mar, Neck pain on right side M54.2 and BMI 50.0-59.9, adult Z68.43 [place] [address] 24880- 1712 06 Mar, 2017 Cervical spinal stenosis M48.02 [place] [address] 52091- 0725 Feb, Cervical spinal stenosis M48.02 [place] [address] 42704- 7582 Feb, [facility] [address] 98767- 5050 Feb, Morbid (severe) obesity due to excess calories E66.01 and Coronary artery disease involving ione coronary artery of ione 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 [facility] [address] 29220- 1843 Feb, Mixed hyperlipidemia E78.2 and HTN (hypertension) I10 [facility] [id number] [place] [address] 34363- 1313 Feb, Cervical spinal stenosis M48.02 ; HTN (hypertension) I10 ; Mixed hyperlipidemia E78.2 ; Recurrent right knee instability M23.51 and Morbid obesity E66.01 [facility] [id number] [place] [address] 25359- 1698 Jan, Other chronic pain G89.29 [facility] [id number] [place] [address] 68972- 8337 Dec, Other chronic pain G89.29 [facility] [address] 47985- 1086 Nov, Other chronic pain G89.29 [place] [id number] [place] [address] 40688- 8620 Oct, Other chronic pain G89.29 [facility] [id number] [place] [address] 54045- 7599 Sep, Other chronic pain G89.29 [facility] [address] 26546- 1814 Sep, Other chronic pain G89.29 [place] [id number] [place] [address] 59386- 3081 Sep, Tenderness of left calf M79.662 and Cervical spinal stenosis M48.02 [facility] [id number] [place] [address] 29116- 8386 Aug, Other chronic pain G89.29 [facility] [id number] [place] [address] 64448- 9075 Aug, Cervical radiculopathy M54.12 [facility] [id number] [place] [address] 20934 -5649 Aug, Cervical neuritis M54.12 [facility] [address] [place] [address]- 2820 Jul, Other chronic pain G89.29 [facility] [address] [place] [address] [id number] Jul, Dental caries K02.9 [facility] [id number] [place] [address] 43200- 8271 Jul, Other chronic pain G89.29 [facility] [id number] [place] [address] 41484- 6744 June, Other chronic pain G89.29 [facility] [address] [place] [address] [id number] May, Dental examination Z01.20 [facility] [id number] [place] [address] 17167- 6989 May, Other chronic pain G89.29 [facility] [id number] [place] [address] 06162- 0640 Apr, Cervical spinal stenosis M48.02 and Drug-induced constipation K59.03 [facility] [id number] [place] [address] 84291- 3741 Apr, [facility] [id number] [place] [address] 22199- 3553 Apr, Other chronic pain G89.29 [facility] [address] [place] [address] 76865- 5131 Apr, [facility] [id number] [place] [address] 00368- 2549 Mar, [facility] [id number] [place] [address] 344352- 9071 Mar, Other chronic pain G89.29 [facility] [address] [place] [address] 847176- 3094 Feb, Other chronic pain G89.29 [facility] [id number] [place] [address] 19850- 5859 Jan, Other chronic pain G89.29 [facility] [id number] [place] [address] 46087- 8440 Dec, [facility] [address] 01181- 2058 Dec, Other chronic pain G89.29 [facility] [address] 87649- 8466 Dec, Cervical spinal stenosis M48.02 ; Encounter for immunization Z23 ; Polyneuropathy associated with underlying disease G63 and Erectile dysfunction due to arterial insufficiency N52.01 [facility] [address] 82414- 3976 Nov, [facility] [address] 55095- 5745 Nov, [facility] [address] 21647- 8690 Oct, [facility] [id number] [place] [address] 93195- 1596 Sep, [facility] [address] 23628- 3928 Aug, [facility] [address] 73339- 8429 Jul, Other chronic pain G89.29 [facility] [address] 31419 -8308 Jul, Angioedema, initial encounter T78.3XXA and Dental abscess K04.7 [facility] [address] 45384- 0858 Jul, Leg pain M79.606 [facility] [id number] [place] [address] 27694- 3596 June, Other chronic pain G89.29 and Encounter for immunization Z23 [facility] [address] [place] [address]- 0317 June, [facility] [id number] [place] [address] 09436- 0311 May, Leg pain M79.606 [facility] [id number] [place] [address] 75195- 6108 Apr, Leg pain M79.606 and Cervical spinal stenosis M48.02 [facility] [id number] [place] [address] 14509- 0360 Apr, [facility] [id number] [place] [address] 99457- 7493 Mar, High ankle sprain of left lower extremity S93.432A [place] [id number] [place] [address] 54209- 0633 Mar, [facility] [id number] [place] [address] 14284- 8887 Mar, Left ankle pain M25.572 [facility] [id number] [place] [address] 07521- 9610 Mar, [facility] [id number] [place] [address] 05906- 9789 Mar, [facility] [id number] [place] [address] 30723- 5975 Mar, Leg pain M79.606 [facility] [id number] [place] [address] 49643- 6283 Mar, [facility] [id number] [place] [address] 52301- 9211 Mar, Ankle pain M25.579 ; Cardiac disease I51.9 ; Obesity E66.9 ; Leg pain M79.606 ; HTN (hypertension) I10 ; Ingrowing nail L60.0 ; 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 and Foot pain, left M79.672 [facility] [address] [facility] [id number] [address]- 7763 Feb, [facility] [address] [place] [address] 53182- 2166 Jan, [facility] [address] [id number] [address]- 8511 Dec, Cervical spinal stenosis M48.02 and Hypertension I10 [facility] [address] [facility] [id number] [place] [address] 42241- 7033 Dec, [facility] [address] [facility] [id number] [place] [address] 31108- 1949 Dec, [facility] [id number] [place] [address] 87131- 9032 Dec, [facility] [id number] [place] [address] 75216- 0303 Nov, [facility] [id number] [place] [address] 47329- 9897 Nov, [facility] [address] [address]- 4729 Oct, [facility] [address] [address]- 2762 Oct, [facility] [address] [address]- 6495 Oct, [facility] [address] [address]- 0762 Oct, [facility] [address] [id number] [address]- 9104 Sep, [facility] [address] [facility] [id number] [address]- 7489 Sep, [facility] [address] [address]- 8580 Sep, Spinal stenosis in cervical region 723.0 ; Essential hypertension, benign 401.[address] [facility] [address] [id number] [place] [address]- 6366 Sep, [facility] [address] [facility] [id number] [address]- 2496 Aug, [facility] [address] [place] [address]- 8921 Aug, [facility] [address] [id number] [address]- 0762 Jul, [facility] [address] [id number] [place] [address]- 6673 June, [facility] [address] 5022 June, [facility] [address]65[address] [address]- 3086 June, [facility] [address]00565[address] [address]- 5336 June, [facility] [address] [address]- 3506 June, Spinal stenosis in cervical region 723.0 and Essential hypertension, benign 401.1 [facility] [address] [id number] [address]- 0489 May, [facility] [address] [address]- 3182 May, [facility] [address] [id number] [address]- 0297 Apr, [facility] [address]- 9172 Apr, [facility] [address] [id number]- 7336 Apr, [facility] [address] [id number] [address]- 2223 Apr, [facility] [place] [facility] [address] [id number] [place] [address]- 3077 Mar, [facility] [place] [facility] [address] [id number] [place] [address]- 4451 Mar, [facility] [place] [facility] [address] [id number] [place] [address]- 2394 Feb, [facility] [place] [facility] [address] [id number] [place] [address]- 0178 Feb, [facility] [place] [facility] [address] [id number] [place] [address]- 1401 Feb, [facility] [place] [facility] [address] [id number] [place] [address]- 5141 Feb, [facility] [place] [facility] [address] [id number] [place] [address]- 7473 Feb, [facility] [place] [facility] [address] [id number] [place] [address]- 3972 Jan, [facility] [place] [facility] [address] [id number] [place] [address]- 5994 Jan, [facility] [place] [facility] [address] [id number] [place] [address]- 2181 Jan, [facility] [place] [facility] [address] [id number] [place] [address]- 5845 Jan, [facility] [place] [facility] [address] [id number] [place] [address]- 4820 Dec, [facility] [place] [facility] [address] [id number] [place] [address]- 6429 Dec, [facility] [place] [facility] [address] [id number] [place] [address]- 6276 Nov, [facility] [place] [facility] [address] [id number] [place] [address]- 4041 Nov, [facility] [place] [facility] [address] [id number] [place] [address]- 6625 Oct, [facility] [place] [facility] [address] [id number] [place] [address]- 4066 Oct, [facility] [place] [facility] [address] [id number] [place] [address]- 9323 Oct, [facility] [place] [facility] [address] [id number] [place] [address]- 1629 Oct, [facility] [place] [facility] [address] [id number] [place] [address]- 6093 Sep, [facility] [place] [facility] [address] [id number] [place] [address]- 3343 Sep, [facility] [place] [facility] [address] [id number] [place] [address]- 1215 Jul, [facility] [place] [facility] [address] [id number] [place] [address]- 5933 Jul, [facility] [place] [facility] [address] [id number] [place] [address]- 3368 Jul, [facility] [place] [facility] [address] [id number] [place] [address]- 1690 Jul, [facility] [place] [facility] [address] [id number] [place] [address]- 6945 June, [facility] [place] [facility] [address] [id number] [place] [address]- 5742 June, [facility] [place] [facility] [address] [id number] [place] [address]- 9659 June, [facility] [place] [facility] [address] [id number] [place] [address]- 3088 June, [facility] [place] [facility] [address] [id number] [place] [address]- 5562 Mar, [facility] [place] [facility] [address] [id number] [place] [address]- 1780 Mar, [facility] [place] [facility] [address] [id number] [place] [address]- 6476 Mar, [facility] [place] [facility] [address] [id number] [place] [address]- 0162 Mar, [facility] [place] [facility] [address] [id number] [place] [address]- 8065 Mar, [facility] [place] [facility] [address] [id number] [place] [address]- 3772 Feb, [facility] [place] [facility] [address] [id number] [place] [address]- 5423 Feb, [facility] [place] [facility] [address] [id number] [place] [address]- 0698 Feb, [facility] [place] [facility] [address] [id number] [place] [address]- 5134 Feb, [facility] [place] [facility] [address] [id number] [place] [address]- 0708 Feb, [facility] [place] [facility] [address] [id number] [place] [address]- 3799 Feb, [facility] [place] [facility] [address] [id number] [place] [address]- 3942 Feb, [facility] [place] [facility] [address] [id number] [place] [address]- 1371 Feb, [facility] [place] [facility] [address] [id number] [place] [address]- 2530 Feb, [facility] [place] [facility] [address] [id number] [place] [address]- 2045 Feb, [facility] [place] [facility] [address] [id number] [place] [address]- 2928 Nov, [facility] [place] [facility] [address] [id number] [place] [address] Nov, [facility] [place] [facility] [address] [id number] [place] [address] Nov, [facility] [address] [id number] [place] [address] Nov, [facility] [place] [facility] [address] [id number] [place] [address] Nov, [facility] [address] [id number] [place] [address] Nov, [facility] [place] [facility] [address] [id number] [place] [address] Aug, [facility] [address] [id number] [place] [address] Aug, [facility] [address] [id number] [place] [address] Aug, [facility] [address] [id number] [place] [address] Aug, [facility] [address] [id number] [place] [address] May, [facility] [address] [id number] [place] [address] Apr, [facility] [address] [id number] [place] [address] Apr, [facility] [address] [id number] [place] [address] Jan, [facility] [place] [facility] [address] [id number] [place] [address] Jan, [facility] [place] [facility] [address] [id number] [place] [address] Jan, [facility] [place] [facility] [address] [id number] [place] [address] Jan, [facility] [place] [facility] [address] [id number] [place] [address] Jan, [facility] [place] [facility] [address] [id number] [place] [address]- [address] 17 Jan, 2012 [facility] [place] [facility] [address] [id number] [place] [address] 17 Jan, 2012 [facility] [place] [facility] [address] [id number] [place] [address] 17 Jan, 2012 [facility] [place] [facility] [address] [id number] [place] [address]- [address] Jan, [facility] [place] [facility] [address] [id number] [place] [address] Jan, [facility] [place] [facility] [address] [id number] [place] [address] Jan, [facility] [place] [facility] [address] [id number] [place] [address] Jan, [facility] [place] [facility] [address] [id number] [place] [address] Jan, [facility] [place] [facility] [address] [id number] [place] [address] Dec, [facility] [place] [facility] [address] [id number] [place] [address]- [address] Dec, [facility] [place] [facility] [address] [id number] [place] [address] Dec, [facility] [place] [facility] [address] [id number] [place] [address] Sep, [facility] [place] [facility] [address] [id number] [place] [address] Sep, [facility] [place] [facility] [address] [id number] [place] [address] Sep, [facility] [place] [facility] [address] [id number] [place] [address] Aug, [facility] [place] [facility] [address] [id number] [place] [address] Aug, [facility] [place] [facility] [address] [id number] [place] [address] Aug, [facility] [place] [facility] [address] [id number] [place] [address] June, [facility] [place] [facility] [address] [id number] [place] [address] Apr, [facility] [place] [facility] [address] [id number] [place] [address] Apr, [facility] [place] [facility] [address] [id number] [place] [address] Mar, [facility] [place] [facility] [address] [id number] [place] [address]- [address] Feb, [facility] [place] [facility] [address] [id number] [place] [address] Feb, [facility] [place] [facility] [address] [id number] [place] [address] Jan, [facility] [place] [facility] [address] [id number] [place] [address] Jan, [facility] [place] [facility] [address] [id number] [place] [address] Dec, [facility] [place] [facility] [address] [id number] [address] Dec, [facility] [place] [facility] [address] [id number] [place] [address] Dec, [facility] [place] [facility] [address] [id number] [place] [address] Nov, [facility] [place] [facility] [address] [id number] [place] [address] Sep, [facility] [place] [facility] [address] [id number] [place] [address] Apr, [facility] [place] [facility] [address] [id number] [address] Mar, [facility] [address] [address] Jan, [facility] [address]65[address] [address] Dec, [facility] [id number] [place] [address] Nov, [facility] [id number] [place] [address] Sep, [facility] [id number] [place] [address] Jul, [facility] [id number] [place] [address] Feb, [facility] [address] [address] Jan, IMMUNIZATIONS No Known Immunizations SOCIAL HISTORY Never Assessed REASON FOR VISIT ER f/u from [facility] 01/15/18- fell in shower on 01/09/18 Aislinn COVARRUBIAS , has numbness in legs and feet and neck for a couple years Aislinn COVARRUBIAS , advised to have an mri so surgeon can see Aislinn Covarrubias , consult on getting a wheelchair prescribed and a handicap placard or lic plate papers filled out Aislinn Covarrubias PLAN OF CARE Activity Details Follow Up 3 Months Reason: Pending Test MRI : Cervical w/o Contrast VITAL SIGNS Height 75 in 2018-01-18 Weight 445 lbs 2018-01-18 Temperature 96.9 degrees Fahrenheit 2018-01-18 Heart Rate 86 bpm 2018-01-18 Respiratory Rate 24 2018-01-18 BMI 55.62 kg/m2 2018-01-18 Blood pressure systolic 158 mmHg 2018-01-18 Blood pressure diastolic 86 mmHg 2018-01-18 MEDICATIONS Medication Instructions Dosage Frequency Start Date End Date Duration Status Hydrochlorothiazide 50 MG Orally Once a day 1 tablet 24h June, Not-Taking Requip 2 MG Orally Once a day 1 tablet 1 to 3 hours before bedtime 24h Mar, 30 day(s) Not-Taking Aspirin 325 MG Orally Once a day 1 tablet 24h Active Baclofen 20 MG TAKE ONE TABLET BY MOUTH FOUR TIMES DAILY WITH FOOD OR MILK 30 Active Crutches-Aluminum - as directed Sep, Active Atorvastatin Calcium 80 MG Orally Once a day 1 tablet 24h Not- Taking Brilinta 90 MG Orally Twice a day 1 tablet 12h Mar, 30 day(s) Not-Taking Morphine Sulfate ER 15 mg Orally every 12 hrs 1 tablet 12h Dec, 14 days Active Viagra 100 MG TAKE ONE TABLET BY MOUTH ONCE DAILY NEEDED 30 Active Nitroglycerin 0.4 MG Active Lisinopril 20 mg Orally Once a day 1 tablet 24h Active Metoprolol Tartrate 25 MG Orally Twice a day 1 tablet with food 12h Active Hydrocodone-Acetaminophen 7.5-325 MG Orally 3 times a day 1 tablet as needed 8h Jan, 28 days Active Naproxen 500 MG TAKE ONE TABLET BY MOUTH TWICE DAILY NEEDED AFTER MEALS 30 Active Wheelchair - as directed Jan, Active Gabapentin 600 MG TAKE ONE TABLET BY MOUTH FOUR TIMES DAILY 30 Active Dietary Fiber Laxative Active Wheelchair - as directed Jan, Active Ambien 10 mg Orally Once a day 1 tablet at bedtime as needed 24h Jul, Active RESULTS No Results PROCEDURES Procedure Date Ordered Result Body Site [facility] VISIT ESTABLISHED PATIENT Jan 18, 2018 INSTRUCTIONS MEDICATIONS ADMINISTERED No Known Medications MEDICAL (GENERAL) HISTORY Type Description Date Medical History spinal compression fracture Medical History cardiovascular disease Medical History stent placed 03-07-15 Surgical History cardiac stent 03-07-15 Surgical History Cardiac stent 11/2015 Hospitalization History [facility] with stent placement 03-06-15 Hospitalization History Cardiac Stent Collapsed/Heart attack 11/2015
--- OUTSIDE RECORDS SUMMARY | 2018-05-28 11:16 | XMS REPORT ---
Author Author ROB RAMIREZ [facility] Address [address] [place] [address] Care Team Providers Care Spray Drier Name Role Phone ROB RAMIREZ Unavailable PROBLEMS Type Condition ICD9-CM Code LWA45-OF Code Onset Dates Condition Status SNOMED Code Problem Erectile dysfunction due to arterial insufficiency N52.01 Active 757368133 Problem Recurrent right knee instability M23.51 Active 152392281 Problem Other chronic pain G89.29 Active 48057985 Problem Lumbar radiculopathy, chronic M54.16 Active 919036283 Problem Right leg weakness R29.898 Active [id number] Problem Mixed hyperlipidemia E78.2 Active 225395306 Problem Morbid obesity E66.01 Active 673758768 Problem Coronary artery disease involving douglas coronary artery of douglas 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 Active 0598367733285 Problem Morbid (severe) obesity due to excess calories E66.01 Active 771632934 Problem Cervical spinal stenosis M48.02 Active 01281308 Problem Foot pain, left M79.672 Active 66190211 Problem HTN (hypertension) I10 Active 39847423 Problem Cardiac disease I51.9 Active 54720244 Problem Ingrowing nail L60.0 Active 331779483 Problem 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 Active 392744201 Problem Obesity E66.9 Active 471643004 Problem Polyneuropathy associated with underlying disease G63 Active 847205205 ALLERGIES No Information ENCOUNTERS Encounter Location Date Diagnosis [facility] [address] [facility] [id number] [address] Jan, [facility] [address] [address] Jan, [facility] [address] [id number] [address] Jan, Cervical spinal stenosis M48.02 ; Morbid (severe) obesity due to excess calories E66.01 and BMI 50.0-59.9, adult Z68.43 [place] [address] 5[address]25- 8563 03 Jan, 2018 Cervical spinal stenosis M48.02 [facility] [address] 28947- 5428 30 Dec, 2017 Lumbar radiculopathy, chronic M54.16 [facility] [address] 03927- 0865 27 Dec, 2017 Cervical spinal stenosis M48.02 [place] [address] 65058- 9293 Dec, Cervical spinal stenosis M48.02 [place] [address] 01728- 2274 14 Dec, 2017 [place] [address] 22871- 0779 Dec, Lumbar radiculopathy, chronic M54.16 [place] [address] 93532- 3628 07 Dec, 2017 Cervical spinal stenosis M48.02 [facility] [address] 79662- 1086 Nov, Cardiac disease I51.9 and HTN (hypertension) I10 [place] [address] 20941- 5470 Nov, Lumbar radiculopathy, chronic M54.16 [facility] [address] 38252- 8641 Nov, Cervical spinal stenosis M48.02 [facility] [address] [id number] [place] [address] 58824- 4062 Nov, Lumbar radiculopathy, chronic M54.16 [facility] [address] 69058- 7060 Oct, Lumbar radiculopathy, chronic M54.16 [place] [id number] [place] [address] 50815- 2053 Oct, Cervical spinal stenosis M48.02 [place] [id number] [place] [address] 27422- 8683 Oct, Lumbar radiculopathy, chronic M54.16 [place] [id number] [place] [address] 19343- 5458 Sep, Cervical spinal stenosis M48.02 [place] [id number] [place] [address] 57530- 6761 Sep, Cervical spinal stenosis M48.02 [place] [id number] [place] [address] 39481- 1501 Sep, Lumbar radiculopathy, chronic M54.16 [place] [id number] [place] [address] 75745- 6229 Sep, Lumbar radiculopathy, chronic M54.16 and BMI 50.0-59.9, adult Z68.43 [place] [id number] [place] [address] 55063- 4565 Aug, Cervical spinal stenosis M48.02 [place] [id number] [place] [address] 36270- 8695 Aug, [place] [address] [id number] [place] [address] 58889- 4799 Jul, Cervical spinal stenosis M48.02 [place] [id number] [place] [address] 83656- 4045 05 Jul, 2017 Medicare annual wellness visit, initial Z00.00 ; Morbid ( severe) obesity due to excess calories E66.01 ; Coronary artery disease involving douglas coronary artery of douglas 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 ; 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 ; Polyneuropathy associated with underlying disease G63 ; HTN (hypertension) I10 ; Mixed hyperlipidemia E78.2 ; BMI 50.0-59.9, adult Z68.43 and Encounter for immunization Z23 [place] [address] 42014- 7739 Jul, Cervical spinal stenosis M48.02 ; HTN (hypertension) I10 ; Coronary artery disease involving douglas coronary artery of douglas 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 and Right leg weakness R29.898 [place] [address] 85462- 3929 June, Cervical spinal stenosis M48.02 [place] [address] 89787- 5991 June, Cervical spinal stenosis M48.02 [place] [address] 55755- 8346 May, Cervical spinal stenosis M48.02 [place] [address] 52747- 2926 Apr, Cervical spinal stenosis M48.02 [facility] [address] 11065 -5393 14 Mar, 2017 Neck pain on right side M54.2 and BMI 50.0-59.9, adult Z68.43 [place] [address] 32605- 3574 06 Mar, 2017 Cervical spinal stenosis M48.02 [place] [address] 36402- 3060 Feb, Cervical spinal stenosis M48.02 [place] [address] 12161- 9672 Feb, [facility] [address] 37433- 8216 Feb, Morbid (severe) obesity due to excess calories E66.01 and Coronary artery disease involving douglas coronary artery of douglas 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 [place] [address] 57273- 5290 Feb, Mixed hyperlipidemia E78.2 and HTN (hypertension) I10 [facility] [id number] [place] [address] 62619- 4327 Feb, Cervical spinal stenosis M48.02 ; HTN (hypertension) I10 ; Mixed hyperlipidemia E78.2 ; Recurrent right knee instability M23.51 and Morbid obesity E66.01 [facility] [id number] [place] [address] 39972- 8665 Jan, Other chronic pain G89.29 [place] [id number] [place] [address] 36317- 7057 Dec, Other chronic pain G89.29 [place] [address] [id number] [place] [address] 29537- 3407 Nov, Other chronic pain G89.29 [place] [address] 25668- 6465 Oct, Other chronic pain G89.29 [place] [address] [id number] [place] [address] 46282- 4260 Sep, Other chronic pain G89.29 [facility] [id number] [place] [address] 86474- 1214 Sep, Other chronic pain G89.29 [place] [address] [id number] [place] [address] 98328- 4740 Sep, Tenderness of left calf M79.662 and Cervical spinal stenosis M48.02 [facility] [id number] [place] [address] 05418- 0741 Aug, Other chronic pain G89.29 [place] [address] [address] [id number] [place] [address] 20189- 2044 Aug, Cervical radiculopathy M54.12 [facility] [id number] [place] [address] 64079 -8223 Aug, Cervical neuritis M54.12 [facility] [address] [address] 3214 Jul, Other chronic pain G89.29 [facility] [address] [place] [address] [id number] Jul, Dental caries K02.9 [facility] [id number] [place] [address] 09969 2546 Jul, Other chronic pain G89.29 [facility] [id number] [place] [address] 23383 2546 June, Other chronic pain G89.29 [facility] [id number] [place] [address] [id number] May, Dental examination Z01.20 [facility] [id number] [place] [address] 29638- 7153 May, Other chronic pain G89.29 [facility] [id number] [place] [address] 70689- 3777 Apr, Cervical spinal stenosis M48.02 and Drug-induced constipation K59.03 [facility] [id number] [place] [address] 57574 2546 Apr, [facility] [address] [place] [address] 53916 2545 Apr, Other chronic pain G89.29 [facility] [address] [place] [address] 13411- 8979 Apr, [facility] [address] [place] [address] 85820- 2541 Mar, [facility] [id number] [place] [address] 01942- 2543 Mar, Other chronic pain G89.29 [facility] [address] [place] [address] 94017- 2247 Feb, Other chronic pain G89.29 [facility] [id number] [place] [address] 54098- 6338 15 Jan, 2016 Other chronic pain G89.29 [facility] [address] 39938- 0920 Dec, [facility] [id number] [place] [address] 44707- 1815 Dec, Other chronic pain G89.29 [facility] [address] 05625- 4536 Dec, Cervical spinal stenosis M48.02 ; Encounter for immunization Z23 ; Polyneuropathy associated with underlying disease G63 and Erectile dysfunction due to arterial insufficiency N52.01 [place] [address] 76746- 0336 Nov, [facility] [address] 11066- 7268 Nov, [facility] [address] 74961- 1413 Oct, [facility] [address] 10503- 0550 Sep, [facility] [id number] [place] [address] 72607- 9771 Aug, [facility] [id number] [place] [address] 92828- 6643 Jul, Other chronic pain G89.29 [facility] [id number] [place] [address] 21909 -8941 Jul, Angioedema, initial encounter T78.3XXA and Dental abscess K04.7 [facility] [address] 88750- 2507 Jul, Leg pain M79.606 [facility] [id number] [place] [address] 17855- 5359 June, Other chronic pain G89.29 and Encounter for immunization Z23 [facility] [id number] [place] [address] 43219- 5743 June, [facility] [address] 50545- 8492 May, Leg pain M79.606 [place] [address] 00575- 8145 Apr, Leg pain M79.606 and Cervical spinal stenosis M48.02 [facility] [address] 77992- 6957 Apr, [place] [address] 53859- 1040 Mar, High ankle sprain of left lower extremity S93.432A [place] [address] 82006- 8041 Mar, [place] [id number] [place] [address] 23269- 5612 Mar, Left ankle pain M25.572 [place] [address] 28103- 6169 Mar, [place] [id number] [place] [address] 71096- 7241 Mar, [place] [id number] [place] [address] 86850- 0774 Mar, Leg pain M79.606 [place] [id number] [place] [address] 34930- 8762 Mar, [place] [address] 75090- 2575 Mar, Ankle pain M25.579 ; Cardiac disease I51.9 ; Obesity E66.9 ; Leg pain M79.606 ; HTN (hypertension) I10 ; Ingrowing nail L60.0 ; 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 and Foot pain, left M79.672 [facility] [id number] [place] [address]- 2883 Feb, [facility] [address] [facility] [id number] [place] [address], [place] [address]- 3667 Jan, [facility] [address] [place] [id number] [place] [address], [place] [address]- 8053 Dec, Cervical spinal stenosis M48.02 and Hypertension I10 [facility] [id number] [place] [address], [place] [address]- 3760 Dec, [facility] [id number] [place] [address], [place] [address]- 2214 Dec, [facility] [id number] [place] [address], [place] [address]- 7790 Dec, [facility] [id number] [place] [address], [place] [address]- 7687 Nov, [facility] [id number] [place] [address], [place] [address]- 5806 Nov, [facility] [id number] [place] [address], [place] [address]- 6831 Oct, [facility] [id number] [place] [address]- 9062 Oct, [facility] [id number] [place] [address], [place] [address]- 2021 Oct, [facility] [address] [facility] [id number], [place] [address]- 2547 Oct, [facility] [id number] [place] [address], [place] [address]- 2789 Sep, [facility] [address] [facility] [id number], [place] [address]- 2368 Sep, [facility] [address] [address]- 7025 Sep, Spinal stenosis in cervical region 723.0 ; Essential hypertension, benign 401.1 and Erectile dysfunction 607.84 [facility] [address] [facility] [id number], [place] [address]- 8218 Sep, [facility] [address] [facility] [id number] 0226 Aug, [facility] [address] [address]- 8299 Aug, [facility] [address] [facility] [id number], [place] [address]- 5358 Jul, [facility] [id number] [address]- 3277 June, [facility] [address] [address]- 9458 June, [facility] [address], [place] [address]- 6439 June, [facility] [id number] [address]- 3677 June, [facility] [address], [place] [address]- 0445 June, Spinal stenosis in cervical region 723.0 and Essential hypertension, benign 401.1 [facility] [address], [place] [address]- 5656 May, [facility] [id number] [address]- 6583 May, [facility] [id number] [address]- 7040 Apr, [facility] [id number] 5260 Apr, [facility] [address], [place] [address]- 7822 Apr, [facility] [id number] [place] [address]- 6611 Apr, [facility] [address] [id number] [place] [address]- 9327 Mar, [facility] [place] [facility] [address] [id number] [place] 4702 16 Mar, 2014 [facility] [address] [id number] [place] [address]- 8484 Feb, [facility] [place] [facility] [address] [id number] [place] [address]- 2757 Feb, [facility] [address] [id number] [place] [address]- 7794 Feb, [facility] [place] [facility] [address] [id number] [place] [address]- 3364 Feb, [facility] [place] [facility] [address] [id number] [place] [address]- 3614 Feb, [facility] [place] [facility] [address] [id number] [place] [address]- 7261 Jan, [facility] [place] [facility] [address] [id number] [place] [address]- 2113 Jan, [facility] [place] [facility] [address] [facility] [id number] [place] [address]- 4136 15 Jan, 2014 [facility] [place] [facility] [address] [id number] [place] [address]- 0815 Jan, [facility] [place] [facility] [address] [id number] [place] [address]- 6965 Dec, [facility] [place] [facility] [address] [id number] [place] [address]- 5275 Dec, [facility] [place] [facility] [address] [id number] [place] [address]- 9998 16 Nov, 2013 [facility] [place] [facility] [address] [id number] [place] [address]- 7866 Nov, [facility] [place] [facility] [address] [id number] [place] [address]- 2310 Oct, [facility] [place] [facility] [address] [id number] [place] [address]- 1107 Oct, [facility] [place] [facility] [address] [id number] [place] [address]- 0907 Oct, [facility] [place] [facility] [address] [id number] [place] [address]- 8438 Oct, [facility] [place] [facility] [address] [id number] [place] [address]- 4735 Sep, [facility] [place] [facility] [address] [id number] [place] [address]- 8685 Sep, [facility] [place] [facility] [address] [id number] [place] [address]- 9934 Jul, [facility] [place] [facility] [address] [id number] [place] [address]- 7170 Jul, [facility] [place] [facility] [address] [id number] [place] [address]- 9469 Jul, [facility] [place] [facility] [address] [id number] [place] [address]- 6176 Jul, [facility] [place] [facility] [address] [id number] [place] [address]- 6464 June, [facility] [place] [facility] [address] [id number], [place] [address]- 1448 June, [facility] [place] [facility] [address] [id number] [place] [address]- 8550 June, [facility] [place] [facility] [address] [id number] [place] [address]- 6893 June, [facility] [place] [facility] [address] [id number] [place] [address]- 0895 Mar, [facility] [place] [facility] [address] [id number], [place] [address]- 8609 Mar, [facility] [place] [facility] [address] [id number] [place] [address]- 7786 Mar, [facility] [place] [facility] [address] [id number] [place] [address]- 1366 Mar, [facility] [place] [facility] [address] [id number] [place] [address]- 8676 Mar, [facility] [place] [facility] [address] [id number] [place] [address]- 9502 Feb, [facility] [place] [facility] [address] [id number] [place] [address]- 9345 Feb, [facility] [place] [facility] [address] [id number] [place] [address]- 3446 Feb, [facility] [place] [facility] [address] [id number] [place] [address]- 5951 Feb, [facility] [place] [facility] [address] [id number] [place] [address]- 9596 Feb, [facility] [place] [facility] [address] [id number] [place] [address]- 8624 Feb, [facility] [place] [facility] [address] [facility] [id number] [place] [address]- 8878 Feb, [facility] [place] [facility] [address] [id number] [place] [address]- 0196 Feb, [facility] [place] [facility] [address] [id number] [place] [address]- 9405 Feb, [facility] [place] [facility] [address] [id number] [place] [address]- 8677 Feb, [facility] [place] [facility] [address] [id number] [place] [address]- 7521 Nov, [facility] [place] [facility] [address] [id number] [place] [address]- 7531 Nov, [facility] [place] [facility] [address] [id number] [place] [address]- 9254 Nov, [facility] [address] [id number] [place] [address]- 5797 Nov, [facility] [place] [facility] [address] [id number] [place] [address]- 6761 Nov, [facility] [address] [id number] [place] [address]- 8617 Nov, [facility] [address] [id number] [place] [address]- 7885 Aug, [facility] [address] [id number] [place] [address]- 4531 Aug, [facility] [address] [id number] [place] [address] Aug, [facility] [address] [id number] [place] [address] Aug, [facility] [address] [id number] [place] [address] May, [facility] [address] [id number] [place] [address] Apr, [facility] [place] [facility] [address] [id number] [place] [address] Apr, [facility] [address] [id number] [place] [address] Jan, [facility] [place] [facility] [address] [id number] [place] [address] Jan, [facility] [place] [facility] [address] [id number] [place] [address] Jan, [facility] [place] [facility] [address] [id number] [place] [address] Jan, [facility] [place] [facility] [address] [id number] [place] [address] 17 Jan, 2012 [facility] [place] [facility] [address] [id number] [place] [address] 17 Jan, 2012 [facility] [place] [facility] [address] [id number] [place] [address] 17 Jan, 2012 [facility] [place] [facility] [address] [id number] [place] [address] 17 Jan, 2012 [facility] [place] [facility] [address] [id number] [place] [address] Jan, [facility] [place] [facility] [address] [id number] [place] [address] Jan, [facility] [place] [facility] [address] [id number] [place] [address] Jan, [facility] [place] [facility] [address] [id number] [place] [address] Jan, [facility] [place] [facility] [address] [id number] [place] [address] Jan, [facility] [place] [facility] [address] [id number] [place] [address] Dec, [facility] [place] [facility] [address] [id number] [place] [address] Dec, [facility] [place] [facility] [address] [id number] [place] [address] Dec, [facility] [place] [facility] [address] [id number] [place] [address] Sep, [facility] [place] [facility] [address] [id number] [place] [address] Sep, [facility] [place] [facility] [address] [id number] [place] [address] Sep, [facility] [place] [facility] [address] [id number] [place] [address] Aug, [facility] [place] [facility] [address] [id number] [place] [address] Aug, [facility] [address] [id number] [place] [address] Aug, [facility] [place] [facility] [address] [id number] [place] [address] June, [facility] [address] [id number] [place] [address] Apr, [facility] [place] [facility] [address] [id number] [place] [address] Apr, [facility] [address] [id number] [place] [address] Mar, [facility] [address] [id number] [place] [address] Feb, [facility] [address] [id number] [place] [address] Feb, [facility] [address] [id number] [place] [address] Jan, [facility] [address] [id number] [place] [address] Jan, [facility] [address] [id number] [place] [address] Dec, [facility] [place] [facility] [address] [id number] [place] [address] Dec, [facility] [place] [facility] [address] [id number] [place] [address] Dec, [facility] [place] [facility] [address] [address] [id number] [place] [id number] Nov, [facility] [place] [facility] [address] [id number] [place] [address] Sep, [facility] [place] [facility] [address] [id number] [place] [address] Apr, [facility] [id number] [address] Mar, 2010 [facility] [id number] [address] Jan, [facility] [id number] [address] Dec, [facility] [id number] [address] Nov, [facility] [id number] [address] Sep, [facility] [id number] [address] Jul, [facility] [id number] [address] Feb, [facility] [id number] [address] Jan, IMMUNIZATIONS No Known Immunizations SOCIAL HISTORY Never Assessed REASON FOR VISIT wc order PLAN OF CARE VITAL SIGNS MEDICATIONS Unknown Medications RESULTS No Results PROCEDURES No Known procedures INSTRUCTIONS MEDICATIONS ADMINISTERED No Known Medications MEDICAL (GENERAL) HISTORY Type Description Date Medical History spinal compression fracture Medical History cardiovascular disease Medical History stent placed 03-07-15 Surgical History cardiac stent 03-07-15 Surgical History Cardiac stent 11/2015 Hospitalization History [place] with stent placement 03-06-15 Hospitalization History Cardiac Stent Collapsed/Heart attack 11/2015
--- OUTSIDE RECORDS SUMMARY | 2018-05-28 11:17 | XMS REPORT ---
Author Author ROB RAMIREZ [facility] Address [address] [place] [address] Care Team Providers Care Loan Interviewer Mortgage Name Role Phone ROB RAMIREZ Unavailable PROBLEMS Type Condition ICD9-CM Code [id number] Code Onset Dates Condition Status SNOMED Code Problem Erectile dysfunction due to arterial insufficiency N52.01 Active 806260469 Problem Recurrent right knee instability M23.51 Active 536069896 Problem Other chronic pain G89.29 Active 44388300 Problem Lumbar radiculopathy, chronic M54.16 Active 197945715 Problem Right leg weakness R29.898 Active [id number] Problem Mixed hyperlipidemia E78.2 Active 826222032 Problem Morbid obesity E66.01 Active 032157243 Problem 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 Active 7423907139113 Problem Morbid (severe) obesity due to excess calories E66.01 Active 140192855 Problem Cervical spinal stenosis M48.02 Active 56994777 Problem Foot pain, left M79.672 Active 67799542 Problem HTN (hypertension) I10 Active 81678150 Problem Cardiac disease I51.9 Active 78216414 Problem Ingrowing nail L60.0 Active 554525911 Problem 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 Active 472457774 Problem Obesity E66.9 Active 469138789 Problem Polyneuropathy associated with underlying disease G63 Active 819094788 ALLERGIES No Information ENCOUNTERS Encounter Location Date Diagnosis [facility] [id number] [address] Jan, [facility] [id number] [place] [address] 23628- 6511 Jan, [facility] [id number] [address] 44[address] Jan, Cervical spinal stenosis M48.02 [facility] [id number] [place] [address] 24373- 4771 30 Dec, 2017 Lumbar radiculopathy, chronic M54.16 [facility] [address] 66288- 9242 27 Dec, 2017 Cervical spinal stenosis M48.02 [facility] [address] 55928- 5024 Dec, Cervical spinal stenosis M48.02 [facility] [address] 18597- 7289 14 Dec, 2017 [facility] [address] 11743- 9608 13 Dec, 2017 Lumbar radiculopathy, chronic M54.16 [facility] [address] 72171- 8028 07 Dec, 2017 Cervical spinal stenosis M48.02 [facility] [address] 55653- 9555 Nov, Cardiac disease I51.9 and HTN (hypertension) I10 [facility] [address] 32697- 0442 24 Nov, 2017 Lumbar radiculopathy, chronic M54.16 [facility] [address] 39059- 2504 Nov, Cervical spinal stenosis M48.02 [facility] [id number] [place] [address] 83463- 0590 10 Nov, 2017 Lumbar radiculopathy, chronic M54.16 [facility] [address] 36617- 5799 27 Sep2017 Lumbar radiculopathy, chronic M54.16 [facility] [id number] [place] [address] 54822- 7024 24 Sep2017 Cervical spinal stenosis M48.02 [facility] [address] [place] [address] 5708 Oct, Lumbar radiculopathy, chronic M54.16 [facility] [id number] [place] [address] 94538- 4312 Sep, Cervical spinal stenosis M48.02 [facility] [id number] [place] [address] 75483- 3346 Sep, Cervical spinal stenosis M48.02 [facility] [id number] [place] [address] 58505- 7348 Sep, Lumbar radiculopathy, chronic M54.16 [facility] [id number] [place] [address] 16908- 5233 Sep, Lumbar radiculopathy, chronic M54.16 and BMI 50.0-59.9, adult Z68.43 [facility] [id number] [place] [address] 78452- 7580 Aug, Cervical spinal stenosis M48.02 [facility] [id number] [place] [address] 14810- 4824 Aug, [facility] [id number] [place] [address] 30241- 4342 Jul, Cervical spinal stenosis M48.02 [facility] [id number] [place] [address] 64347- 0064 05 Jul, 2017 Medicare annual wellness visit, initial Z00.00 ; Morbid ( severe) obesity due to excess calories E66.01 ; 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 ; 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 ; Polyneuropathy associated with underlying disease G63 ; HTN (hypertension) I10 ; Mixed hyperlipidemia E78.2 ; BMI 50.0-59.9, adult Z68.43 and Encounter for immunization Z23 [facility] [id number] [place] [address] 36200- 1030 04 Jul, 2017 Cervical spinal stenosis M48.02 ; HTN (hypertension) I10 ; 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 and Right leg weakness R29.898 [facility] [id number] [place] [address] 38679- 5904 June, Cervical spinal stenosis M48.02 [facility] [id number] [place] [address] 28233- 4588 June, Cervical spinal stenosis M48.02 [facility] [address] 82204- 6974 May, Cervical spinal stenosis M48.02 [facility] [address] 94508- 2439 Apr, Cervical spinal stenosis M48.02 [facility] [id number] [place] [address] 31979 -8962 14 Mar, 2017 Neck pain on right side M54.2 and BMI 50.0-59.9, adult Z68.43 [facility] [id number] [place] [address] 09004- 0073 Mar, Cervical spinal stenosis M48.02 [facility] [address] 46317- 9098 Feb, Cervical spinal stenosis M48.02 [facility] [id number] [place] [address] 38098- 6595 Feb, [facility] [id number] [place] [address] 78852- 2055 Feb, Morbid (severe) obesity due to excess calories E66.01 and 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 [facility] [address] 59749- 7063 Feb, Mixed hyperlipidemia E78.2 and HTN (hypertension) I10 [facility] [id number] [place] [address] 03502- 5116 Feb, Cervical spinal stenosis M48.02 ; HTN (hypertension) I10 ; Mixed hyperlipidemia E78.2 ; Recurrent right knee instability M23.51 and Morbid obesity E66.01 [facility] [id number] [place] [address] 06645- 5975 Jan, Other chronic pain G89.29 [facility] [id number] [place] [address] 53215- 5377 16 Dec, 2016 Other chronic pain G89.29 [facility] [address] 97687- 8699 Nov, Other chronic pain G89.29 [facility] [address] 33540- 1303 Oct, Other chronic pain G89.29 [facility] [id number] [place] [address] 60006- 9926 Sep, Other chronic pain G89.29 [facility] [address] 91500- 3270 Sep, Other chronic pain G89.29 [facility] [id number] [place] [address] 93888- 8639 Sep, Tenderness of left calf M79.662 and Cervical spinal stenosis M48.02 [facility] [id number] [place] [address] 34191- 5110 Aug, Other chronic pain G89.29 [facility] [id number] [place] [address] 82723- 7018 Aug, Cervical radiculopathy M54.12 [facility] [id number] [place] [address] 69567 -1023 Aug, Cervical neuritis M54.12 [facility] [id number] [place] [address] 96130- 0312 Jul, Other chronic pain G89.29 [facility] [id number] [place] [address] [id number] Jul, Dental caries K02.9 [facility] [address] [place] [address] 41624- 8909 Jul, Other chronic pain G89.29 [facility] [id number] [place] [address] 048210- 7087 June, Other chronic pain G89.29 [facility] [address] [place] [address] [id number] May, Dental examination Z01.20 [facility] [id number] [place] [address] 86082- 4413 May, Other chronic pain G89.29 [facility] [id number] [place] [address] 71676- 4003 Apr, Cervical spinal stenosis M48.02 and Drug-induced constipation K59.03 [facility] [id number] [place] [address] 52670- 1170 Apr, [facility] [id number] [place] [address] 76632- 7762 Apr, Other chronic pain G89.29 [facility] [id number] [place] [address] 14956- 7383 Apr, [facility] [id number] [place] [address] 43359- 5689 Mar, [facility] [id number] [place] [address] 24501- 6786 Mar, Other chronic pain G89.29 [facility] [address] [place] [address] 70987- 2907 Feb, Other chronic pain G89.29 [facility] [id number] [place] [address] 773108- 6760 Jan, Other chronic pain G89.29 [facility] [id number] [place] [address] 33664- 9440 Dec, [facility] [id number] [place] [address] 91072- 1147 Dec, Other chronic pain G89.29 [facility] [id number] [place] [address] 09022- 8587 Dec, Cervical spinal stenosis M48.02 ; Encounter for immunization Z23 ; Polyneuropathy associated with underlying disease G63 and Erectile dysfunction due to arterial insufficiency N52.01 [facility] [id number] [place] [address] 15245- 8407 Nov, [facility] [id number] [place] [address] 21982- 8193 Nov, [facility] [id number] [place] [address] 42023- 4534 Oct, [facility] [id number] [place] [address] 70163- 8139 Sep, [facility] [address] [place] [address] 95905- 6918 Aug, [facility] [id number] [place] [address] 27800- 3181 Jul, Other chronic pain G89.29 [facility] [id number] [place] [address] 42628 -0909 Jul, Angioedema, initial encounter T78.3XXA and Dental abscess K04.7 [facility] [address] [place] [address] 73273- 6565 Jul, Leg pain M79.606 [facility] [id number] [place] [address] 79920- 5730 June, Other chronic pain G89.29 and Encounter for immunization Z23 [facility] [id number] [place] [address] 62056- 2012 June, [facility] [address] [place] [address] 95122- 9822 May, Leg pain M79.606 [facility] [address] [place] [address] 76074- 6198 Apr, Leg pain M79.606 and Cervical spinal stenosis M48.02 [facility] [id number] [place] [address] 40821- 6566 Apr, [facility] [address] [place] [address] 00635- 3486 Mar, High ankle sprain of left lower extremity S93.432A [facility] [address] [place] [address] 24867- 3521 Mar, [facility] [address] [place] [address] 92423- 3830 Mar, Left ankle pain M25.572 [facility] [address] [place] [address] 64127- 5147 Mar, [facility] [address] [place] [address] 63711- 5522 Mar, [facility] [address] [place] [address] 53784- 6248 Mar, Leg pain M79.606 [facility] [address] [place] [address] 94003- 8655 Mar, [facility] [address] [place] [address] 97015- 2671 Mar, Ankle pain M25.579 ; Cardiac disease I51.9 ; Obesity E66.9 ; Leg pain M79.606 ; HTN (hypertension) I10 ; Ingrowing nail L60.0 ; 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 and Foot pain, left M79.672 [facility] [id number] [place] [address] 25355- 1464 Feb, [facility] [address] [place] [address] 63031- 4509 Jan, [facility] [address] [address]- 5604 Dec, Cervical spinal stenosis M48.02 and Hypertension I10 [facility] [id number] [place] [address] 80423- 8923 Dec, [facility] [address] [place] [address] 00765- 2354 Dec, [facility] [address] [place] [address] 32882- 4520 Dec, [facility] [id number] [place] [address] 05480- 4167 Nov, [facility] [address] [place] [address] 10170- 9021 Nov, [facility] [id number] [place] [address] 80238- 0947 Oct, [facility] [address] [place] [address] 46751- 7926 Oct, [facility] [address] [place] [address] 39327- 5866 Oct, [facility] [address] [place] [address] 75746- 9592 Oct, [facility] [address] [place] [address] 21160- 9140 Sep, [facility] [id number] [place] [address] 97433- 9936 Sep, [facility] [id number] [place] [address] 39913- 0913 Sep, Spinal stenosis in cervical region 723.0 ; Essential hypertension, benign 401.1 and Erectile dysfunction 607.84 [facility] [address] [address]- 8478 Sep, [facility] [id number] [address]- 3892 Aug, [facility] [address] [facility] [id number] 3015 Aug, [facility] [address] [facility] [id number] [address]- 9271 Jul, [facility] [address] [facility] [id number] [address]- 5670 June, [facility] [address] [facility] [id number] [address]- 6048 June, [facility] [id number] [address]- 0240 June, [facility] [id number] [place] [address]- 1634 June, [facility] [address] [address]- 4977 June, Spinal stenosis in cervical region 723.0 and Essential hypertension, benign 401.1 [facility] [id number] [place] [address]- 7616 May, [facility] [id number] [address]- 8115 May, [facility] [id number] [address]- 2999 Apr, [facility] [place] [facility] [id number] [address]- 5361 Apr, [facility] [place] [facility] [address] [facility] [id number] [place] [address]- 6892 Apr, [facility] [place] [facility] [address] [facility] [id number] [place] 9084 Apr, [facility] [place] [facility] [id number]- 2470 Mar, [facility] [place] [facility] [address] [facility] [id number] [place] [address]- 8631 16 Mar, 2014 [facility] [place] [facility] [address] [id number] [place] [address]- 9742 Feb, [facility] [place] [facility] [address] [id number] [place] [address]- 9293 Feb, [facility] [place] [facility] [address] [id number] [place] [address]- 1448 Feb, [facility] [place] [facility] [address] [id number] [place] [address]- 9161 Feb, [facility] [place] [facility] [address] [id number] [place] [address]- 6176 Feb, [facility] [place] [facility] [address] [id number] [place] [address]- 6531 Jan, [facility] [place] [facility] [address] [id number] [place] [address]- 5755 Jan, [facility] [place] [facility] [address] [id number] [place] [address]- 4406 Jan, [facility] [place] [facility] [address] [id number] [place] [address]- 0722 Jan, [facility] [place] [facility] [address] [id number] [place] [address]- 1765 Dec, [facility] [place] [facility] [address] [id number] [place] [address]- 2217 Dec, [facility] [place] [facility] [address] [id number] [place] [address]- 4468 Nov, [facility] [place] [facility] [address] [id number] [place] [address]- 5075 Nov, [facility] [place] [facility] [address] [id number] [place] [address]- 7186 Oct, [facility] [place] [facility] [address] [id number] [place] [address]- 6731 Oct, [facility] [place] [facility] [address] [id number] [place] [address]- 5288 Oct, [facility] [place] [facility] [address] [id number] [place] [address]- 0371 Oct, [facility] [place] [facility] [address] [id number] [place] [address]- 4510 Sep, [facility] [place] [facility] [address] [id number] [place] [address]- 4884 Sep, [facility] [place] [facility] [address] [id number] [place] [address]- 2634 Jul, [facility] [place] [facility] [address] [id number] [place] [address]- 7367 Jul, [facility] [place] [facility] [address] [id number] [place] [address]- 6218 Jul, [facility] [place] [facility] [address] [id number] [place] [address]- 2878 Jul, [facility] [place] [facility] [address] [id number] [place] [address]- 6693 June, [facility] [place] [facility] [address] [id number] [place] [address]- 5043 June, [facility] [place] [facility] [address] [id number] [place] [address]- 4192 June, [facility] [place] [facility] [address] [id number] [place] [address]- 4392 June, [facility] [place] [facility] [address] [id number] [place] [address]- 2030 Mar, [facility] [place] [facility] [address] [id number] [place] [address]- 6678 Mar, [facility] [place] [facility] [address] [id number] [place] [address]- 8582 Mar, [facility] [place] [facility] [address] [id number] [place] [address]- 5936 Mar, [facility] [place] [facility] [address] [id number] [place] [address]- 1610 Mar, [facility] [place] [facility] [address] [id number] [place] [address]- 5201 Feb, [facility] [place] [facility] [address] [id number] [place] [address]- 2035 Feb, [facility] [place] [facility] [address] [id number] [place] [address]- 2694 Feb, [facility] [place] [facility] [address] [id number] [place] [address]- 0223 Feb, [facility] [place] [facility] [address] [id number] [place] [address]- 3380 Feb, [facility] [place] [facility] [address] [id number] [place] [address]- 7660 Feb, [facility] [place] [facility] [address] [id number] [place] [address] Feb, [facility] [place] [facility] [address] [id number] [place] [address] Feb, [facility] [place] [facility] [address] [facility] [id number] [place] [address] Feb, [facility] [place] [facility] [address] [id number] [place] [address] Feb, [facility] [place] [facility] [address] [id number] [place] [address] Nov, [facility] [place] [facility] [address] [id number] [place] [address] Nov, [facility] [place] [facility] [address] [id number] [place] [address] Nov, [facility] [place] [facility] [address] [id number] [place] [address] Nov, [facility] [place] [facility] [address] [id number] [place] [address] Nov, [facility] [place] [facility] [address] [id number] [place] [address] Nov, [facility] [place] [facility] [address] [id number] [place] [address] Aug, [facility] [place] [facility] [address] [id number] [place] [address] Aug, [facility] [place] [facility] [address] [id number] [place] [address]- [address] Aug, [facility] [place] [facility] [address] [id number] [place] [address]- [address] Aug, [facility] [place] [facility] [address] [id number] [place] [address]- [address] May, [facility] [place] [facility] [address] [id number] [place] [address] Apr, [facility] [place] [facility] [address] [id number] [place] [address] Apr, [facility] [place] [facility] [address] [id number] [place] [address] Jan, [facility] [place] [facility] [address] [id number] [place] [address] 17 Jan, 2012 [facility] [place] [facility] [address] [id number] [place] [address]- [address] Jan, [facility] [place] [facility] [address] [id number] [place] [address] Jan, [facility] [place] [facility] [address] [id number] [place] [address]6 Jan, [facility] [place] [facility] [address] [id number] [place] [address]- [address] Jan, [facility] [place] [facility] [address] [id number] [place] [address]- [address] Jan, [facility] [place] [facility] [address] [id number] [place] [address]- [address] 17 Jan, 2012 [facility] [place] [facility] [address] [id number] [place] [address]- [address] Jan, [facility] [place] [facility] [address] [id number] [place] [address]- [address] Jan, [facility] [place] [facility] [address] [id number] [place] [address]- [address] Jan, [facility] [place] [facility] [address] [id number] [place] [address]- [address] Jan, [facility] [place] [facility] [address] [id number] [place] [address] Jan, [facility] [place] [facility] [address] [id number] [place] [address] Dec, [facility] [place] [facility] [address] [id number] [place] [address]- [address] Dec, [facility] [place] [facility] [address] [id number] [place] [address] Dec, [facility] [place] [facility] [address] [id number] [place] [address]- 164[address] Sep, [facility] [place] [facility] [address] [id number] [place] [address]- [address] Sep, [facility] [place] [facility] [address] [id number] [place] [address]- [address] Sep, [facility] [place] [facility] [address] [id number] [place] [address]- [address] Aug, [facility] [place] [facility] [address] [id number] [place] [address]- 7614 Aug, [facility] [place] [facility] [address] [id number] [place] [address]- [address] Aug, [facility] [place] [facility] [address] [id number] [place] [address] June, [facility] [address] [id number] [place] [address]- [address] Apr, [facility] [place] [facility] [address] [id number] [place] [address] Apr, [facility] [address] [id number] [place] [address]- [address] Mar, [facility] [place] [facility] [address] [id number] [place] [address]- [address] Feb, [facility] [address] [id number] [place] [address] Feb, [facility] [place] [facility] [address] [id number] [place] [address] Jan, [facility] [address] [id number] [place] [address] Jan, [facility] [address] [id number] [place] [address] Dec, [facility] [place] [facility] [address] [id number] [place] [address] Dec, [facility] [address] [id number] [place] [address] Dec, [facility] [place] [facility] [address] [id number] [place] [address] Nov, [facility] [place] [facility] [address] [id number] [place] [address] 15 Sep, 2010 [facility] [place] [facility] [address] [id number] [place] [address] 15 Apr, 2010 [facility] [place] [facility] [address] [id number] [place] [address] 16 Mar, 2010 [facility] [place] [facility] [address] [id number] [place] [address] Jan, [facility] [address] [facility] [id number] [address] Dec, [facility] [address] [id number] [address] Nov, [facility] [address] [id number] [address] Sep, [facility] [address] [id number] [address] Jul, [facility] [address] [id number] [address] Feb, [facility] [address] [id number] [address] Jan, IMMUNIZATIONS No Known Immunizations SOCIAL HISTORY Never Assessed REASON FOR VISIT Controlled Med Refill 01/16 PLAN OF CARE VITAL SIGNS MEDICATIONS Medication [...]
[2018-05-28] MEDS ORDERED: ceFAZolin 2 GM IV Premixed 50 ML IV ONE (11:30)
[2018-05-28] MEDS ORDERED: BACITRACIN 100,000 UNIT/NS 1000 ML POUR BOTTLE IR ONE ×2 (11:30)
--- OUTSIDE RECORDS SUMMARY | 2018-05-28 11:38 | XMS REPORT | Continuity of Care Document ---
Author Organization Unknown Address Unknown Allergies Active Description Code Type Severity Reaction Onset Reported/Identified Relationship to Patient Clinical Status Yes No Known Drug Allergies [id number] Drug Allergy Unknown N/A 11/02/2007 Yes allopurinol [...] BACK PAIN WITH RADIATION 08/23/2007 ROB RAMIREZ MD4.4 BACK PAIN WITH RADIATION 08/23/2007 724.4 BACK [...] BACK PAIN WITH RADIATION 08/23/2007 ROB RAMIREZ MD4.4 BACK PAIN WITH RADIATION 08/23/2007 ROB RAMIREZ MD4.4 BACK PAIN WITH RADIATION 08/23/2007 724.4 BACK PAIN WITH RADIATION 09/20/2007 ROB RAMIREZ MD 719.46 Pain In Joint Involving Lower Leg 09/20/2007 ROB RAMIREZ MD 719.46 Pain In Joint Involving Lower Leg 09/20/2007 719.46 Pain In Joint Involving Lower Leg 09/20/2007 ROB RAMIREZ MD 719.46 Pain In Joint Involving Lower Leg 09/20/2007 ROB RAMIREZ MD 71Dnotrell.46 Pain In Joint Involving Lower Leg 09/20/2007 [...] Unspecified Site Episode Of Care Unspecified 05/25/2008 ASPEN DAI DO 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 05/25/2008 ASPEN DAI DO 410.90 Acute Myocardial Infarction Of Unspecified Site [...] 02/03/2009 ROB RAMIREZ MD 724.5 BACKACHE 02/03/2009 JAMES BARNES, ROB 786.07 Wheezing [as A Symptom] 02/03/2009 JAMES BARNES, ROB 786.2 Cough 02/03/2009 RBO RAMIREZ MD 465.9 Upper Respiratory Infection 02/03/2009 ROB RAMIREZ MD 724.5 BACKACHE 02/03/2009 JAMES BARNES, ROB 786.07 [...] 02/03/2009 ROB RAMIREZ MD 724.5 BACKACHE 02/03/2009 JAMES BARNES, ROB 786.07 Wheezing [as A Symptom] 02/03/2009 JAMES BARNES, ROB 786.2 Cough 02/03/2009 DAI DO, ASPEN K [...] 02/03/2009 ROB RAMIREZ MD 724.5 BACKACHE 02/03/2009 JAMES BARNES, ROB 786.07 [...] BARNES, ROB 465.9 Upper Respiratory Infection 02/03/2009 JAMSE BARNES, ROB 724.5 BACKACHE 02/03/2009 JAMES BARNES, [...] ROB 564.00 Constipation 10/01/2009 ASPEN DAI DO 564.00 Constipation 10/01/2009 JAMES BARNES, ROB 564.00 Constipation 10/01/2009 JAMES BARNES, ROB 564.00 Constipation 10/01/2009 JAMES BARNES, ROB 564.00 Constipation 10/01/2009 JAMES BARNES, ROB 564.00 Constipation 10/01/2009 JAMES BARNES, ROB 564.00 Constipation 10/01/2009 JAMES BARNES, ROB 564.00 Constipation 10/01/2009 JAMES BARNES, ROB 564.00 Constipation 10/01/2009 564.00 Constipation 03/31/2010 ROB RAMIREZ MD 382.00 Acute Suppurative [...] Media Without Spontaneous Rupture Of Eardrum 03/31/2010 ASPEN DAI DO 382.00 Acute Suppurative Otitis Media Without Spontaneous [...] ROB 381.01 Otitis Media, Acute Serous 04/09/2010 ASPEN DAI DO 381.01 Otitis Media, Acute Serous 04/09/2010 JAMES [...] ROB RAMIREZ MD 719.45 Hip Pain 04/27/2010 JAMES BARNES, ROB 719.45 Hip Pain 04/27/2010 719.45 Hip Pain 04/27/2010 JAMES BARNES, ROB 719.45 Hip Pain 04/27/2010 JAMES BARNES, ROB 719.45 Hip Pain 04/27/2010 ASPEN DAI DO 719.45 Hip Pain 04/27/2010 ROB RAMIREZ MD 719.45 Hip Pain 04/27/2010 JAMES BARNES, ROB 719.45 Hip Pain 04/27/2010 ROB RAMIREZ MD.45 Hip Pain 04/27/2010 ROB RAMIREZ MD 719.45 Hip Pain 04/27/2010 ROB RAMIREZ MD 719.45 Hip Pain 04/27/2010 ROB RAMIREZ MD 719.45 Hip Pain 04/27/2010 ROB RAMIREZ MD.45 Hip Pain 04/27/2010 719.45 Hip Pain 04/28/2010 ROB RAMIREZ MD 71Dontrell.45 Hip Pain 04/28/2010 ROB RAMIREZ MD.45 Hip Pain 04/28/2010 719.45 Hip Pain 04/28/2010 ROB RAMIREZ MD 71Dontrell.45 Hip Pain 04/28/2010 ROB RAMIREZ MD.45 Hip Pain 04/28/2010 ASPEN DAI DO 719.45 Hip Pain 04/28/2010 ROB RAMIREZ MD 71Dontrell.45 Hip Pain 04/28/2010 ROB RAMIREZ MD.45 Hip Pain 04/28/2010 ROB RAMIREZ MD.45 Hip Pain 04/28/2010 ROB RAMIREZ MD.45 Hip Pain 04/28/2010 ROB RAMIREZ MD9.45 Hip Pain 04/28/2010 ROB RAMIREZ MD.45 Hip [...] RAMIREZ MD 729.5 Pain In Limb 09/27/2010 ASPEN DAI DO K 214.1 Lipoma Of Other Skin And Subcutaneous Tissue 09/27/2010 ASPEN DAI DO K 729.5 Pain In Limb 09/27/2010 ROB [...] Morbid Obesity 05/10/2011 278.01 Morbid Obesity 08/21/2012 ROB RAMIREZ MD 356.9 UNSPECIFIED IDIOPATHIC PERIPHERAL NEUROPATHY 08/21/2012 JAMES BARNES, ROB 356.9 UNSPECIFIED IDIOPATHIC PERIPHERAL NEUROPATHY 08/21/2012 ASPEN DAI DO 356.9 UNSPECIFIED IDIOPATHIC PERIPHERAL NEUROPATHY 08/21/2012 ROB RAMIREZ MD 356.9 UNSPECIFIED IDIOPATHIC PERIPHERAL NEUROPATHY 08/21/2012 JAMES BARNES, ROB 356.9 UNSPECIFIED IDIOPATHIC PERIPHERAL NEUROPATHY 08/21/2012 ROB RAMIREZ MD 356.9 UNSPECIFIED IDIOPATHIC PERIPHERAL NEUROPATHY 08/21/2012 JAMES BARNES, ROB 356.9 UNSPECIFIED IDIOPATHIC PERIPHERAL NEUROPATHY 08/21/2012 JAMES BARNES, ROB 356.9 UNSPECIFIED IDIOPATHIC PERIPHERAL NEUROPATHY 08/21/2012 JAMES BARNES, ROB 356.9 UNSPECIFIED IDIOPATHIC PERIPHERAL NEUROPATHY 08/21/2012 JAMES BARNES, ROB 356.9 UNSPECIFIED IDIOPATHIC PERIPHERAL NEUROPATHY 12/10/2012 ROB RAMIREZ MD 401.1 BENIGN ESSENTIAL HYPERTENSION 12/10/2012 ROB RAMIREZ MD5.6 ENLARGEMENT OF LYMPH NODES 12/10/2012 ASPEN DAI DO K 401.1 BENIGN ESSENTIAL HYPERTENSION 12/10/[address] K 785.6 ENLARGEMENT OF LYMPH NODES 12/10/2012 ROB RAMIREZ MD 401.1 BENIGN ESSENTIAL HYPERTENSION 12/10/2012 ROB RAMIREZ MD5.6 ENLARGEMENT OF LYMPH NODES 12/10/2012 ROB RAMIREZ MD 401.1 BENIGN ESSENTIAL HYPERTENSION 12/10/2012 ROB RAMIREZ MD 785.6 ENLARGEMENT OF LYMPH NODES 12/10/2012 ROB RAMIREZ MD 401.1 BENIGN ESSENTIAL HYPERTENSION 12/10/2012 HUERTER MD, ROB 785.6 ENLARGEMENT OF LYMPH NODES 12/10/2012 [...] ROB 522.5 PERIAPICAL ABSCESS WITHOUT SINUS 07/11/2013 ROB RAMIREZ MD 723.0 SPINAL STENOSIS IN CERVICAL REGION 07/11/2013 JAMES BARNES, ROB 723.0 SPINAL STENOSIS IN CERVICAL REGION 07/11/2013 ROB RAMIREZ MD 723.0 SPINAL STENOSIS IN CERVICAL REGION 07/11/2013 ROB RAMIREZ MD 723.0 SPINAL STENOSIS IN CERVICAL REGION 11/07/2013 ROB RAMIREZ MD 703.0 INGROWING NAIL 11/07/2013 JAMES BARNES, ROB 703.0 INGROWING NAIL 11/07/2013 ROB RAMIREZ MD 703.0 INGROWING NAIL 02/14/2014 ROB RAMIREZ MD 463 ACUTE TONSILLITIS 06/12/2014 ROB RAMIREZ MD Ot 784.2 06/12/2014 ROB RAMIREZ MD Ot 785.6 06/12/2014 MARLEEN MENDEZ DO Ot 401.9 HYPERTENSION NOS 06/12/2014 VANESSAMARLEEN SOLOMON DO Ot 722.4 CERVICAL DISC DEGEN 06/12/2014 MARLEEN MENDEZ DO Ot 723.1 CERVICALGIA 06/12/2014 VANESSAMARLEEN SOLOMON DO Ot 847.0 SPRAIN OF NECK 06/12/[address] Ot E000.8 OTHER EXTERNAL CAUSE STATUS 06/12/[address] Ot E927.0 OVEREXERTION FROM SUDDEN STRENUOUS MOVEM 06/12/[address] Ot V58.69 OT MED,LT,CURRENT USE 03/08/2015 LADAN AKINS MD, Ot E66.01 MORBID (SEVERE) OBESITY DUE TO EXCESS CA 03/08/2015 LADAN AKINS MD, Ot E78.5 HYPERLIPIDEMIA, UNSPECIFIED 03/08/2015 LADAN AKINS MD Ot I10 ESSENTIAL (PRIMARY) HYPERTENSION 03/08/2015 LADAN AKINS MD, Ot I21.4 NON-ST ELEVATION (NSTEMI) MYOCARDIAL INF 03/08/2015 LADAN AKINS MD, Ot I25.10 ATHSCL HEART DISEASE OF [place] CORONARY 03/08/2015 LADAN AKISN MD Ot K21.9 GASTRO-ESOPHAGEAL REFLUX DISEASE WITHOUT 03/08/2015 LADAN AKINS MD, Ot Z23 ENCOUNTER FOR IMMUNIZATION 03/08/2015 LADAN AKINS MD, Ot Z68.43 BODY MASS INDEX (BMI) 50-59.9 , ADULT 03/08/2015 LADAN AKINS MD, Ot Z91.14 PATIENT'S OTHER NONCOMPLIANCE WITH MEDIC 03/08/2015 LADAN AKINS MD Ot Z95.5 PRESENCE OF CORONARY ANGIOPLASTY IMPLANT 03/08/2015 LADAN AKINS MD Ot E66.01 03/08/2015 LADAN AKINS MD, Ot E78.5 03/08/2015 LADAN AKINS MD Ot I10 03/08/2015 LADAN AKINS MD, Ot I21.4 03/08/2015 LADAN AKINS MD Ot I25.10 03/08/2015 LADAN AKINS MD, Ot K21.9 03/08/2015 LADAN AKINS MD, Ot Z23 03/08/2015 MABLE BARNES, BASHAR J [...] BASHAR J Ot I21.4 03/11/2015 MABLE BARNES, LJHAR J Ot I25.10 03/11/2015 MABLE BARNES, BASHAR J Ot K21.9 03/11/2015 MABLE BARNES, BASHAR J Ot Z23 03/11/2015 MABLE BARNES, BASHAR J Ot Z68.43 03/11/2015 MABLE BARNES, BASHAR J Ot Z91.14 03/11/2015 MABEL BARNES, BASHAR J Ot Z95.5 03/11/2015 MABLE BARNES, BASHAR J Ot E66.01 03/11/2015 MABLE BARNES, BASHAR J Ot E78.5 03/11/2015 MABLE BARNES, BASHAR J Ot I10 03/11/2015 MABLE BARNES, BASHAR J Ot I21.4 03/11/2015 MABLE BARNES, BASHAR J Ot I25.10 03/11/2015 MABLE BARNES, BASHAR J Ot K21.9 03/11/2015 MABLE BARNES, BASHAR J Ot Z23 03/11/2015 LADAN AKINS MD Ot Z68.43 03/11/2015 LADAN AKINS MD Ot Z91.14 03/11/2015 LADAN AKINS MD Ot Z95.5 03/14/2015 June SOFIA MD Ot F17.210 NICOTINE DEPENDENCE, CIGARETTES, UNCOMPL 03/14/2015 KIMBERLYN BARNES, June SHARP Ot I21.4 NON-ST ELEVATION (NSTEMI) MYOCARDIAL INF 03/14/2015 June SOFIA MD Ot I25.10 ATHSCL HEART DISEASE OF [place] CORONARY 03/14/2015 June SOFIA MD Ot R07.9 CHEST PAIN, UNSPECIFIED 03/14/2015 June SOFIA MD Ot R19.7 DIARRHEA, UNSPECIFIED 03/14/2015 June SOFIA MD Ot Z95.5 PRESENCE OF CORONARY ANGIOPLASTY IMPLANT 04/01/2015 ROB RAMIREZ MD Ot 784.2 04/01/2015 ROB RAMIREZ MD Ot 785.6 04/06/2015 DINORA KAHNP Ot M25.572 04/07/2015 DINORA KAHN HARPOONER Ot M25.572 07/13/2015 TITUS REDDY MD Ot F17.210 NICOTINE DEPENDENCE, CIGARETTES, UNCOMPL 07/13/2015 TITUS REDDY MD Ot H57.9 UNSPECIFIED DISORDER OF EYE AND ADNEXA 07/15/2015 TITUS REDDY MD Ot F17.210 NICOTINE DEPENDENCE, CIGARETTES, UNCOMPL 07/15/2015 TITUS REDDY MD Ot H57.9 UNSPECIFIED DISORDER OF EYE AND ADNEXA 08/11/2015 [employer] [employer] Ot R60.0 LOCALIZED EDEMA 2015 [employer] [employer] Ot R60.0 LOCALIZED EDEMA 09/03/2015 [employer] Ot R60.0 LOCALIZED EDEMA 09/15/2015 ROB RAMIREZ MD Ot 784.2 SWELLING IN HEAD NECK 09/15/2015 ROB RAMIREZ MD Ot 785.6 ENLARGEMENT LYMPH NODES 09/15/2015 DINORA KAHNP Ot M25.572 PAIN IN LEFT ANKLE AND JOINTS OF LEFT FO 09/15/2015 [employer] [employer] Ot R60.0 LOCALIZED EDEMA 10/20/2015 [employer] [employer] Ot R60.0 LOCALIZED EDEMA 11/17/2015 JAMES BARNES, ROB Wan Ot 784.2 SWELLING IN HEAD NECK 11/17/2015 JAMES BARNES, ROB Wan Ot 785.6 ENLARGEMENT LYMPH NODES 11/17/2015 DINORA KAHN Ot M25.572 PAIN IN LEFT ANKLE AND JOINTS OF LEFT FO 11/17/2015 [employer] [employer] Ot R60.0 LOCALIZED EDEMA 11/17/2015 CODY KAM MD Ot E66.01 MORBID (SEVERE) OBESITY DUE TO EXCESS CA 11/17/2015 CODY KAM MD Ot E78.1 PURE HYPERGLYCERIDEMIA 11/17/2015 CODY KAM MD, Ot E78.5 HYPERLIPIDEMIA, UNSPECIFIED 11/17/2015 CODY KAM MD Ot F17.210 NICOTINE DEPENDENCE, CIGARETTES, UNCOMPL 11/17/2015 CODY KAM MD Ot I10 ESSENTIAL (PRIMARY) HYPERTENSION 11/17/2015 CODY KAM MD Ot I21.4 NON-ST ELEVATION (NSTEMI) MYOCARDIAL INF 11/17/2015 CODY KAM MD, Ot I25.119 ATHSCL HEART DISEASE OF [place] COR ART W 11/17/2015 CODY KAM MD, Ot I25.2 OLD MYOCARDIAL INFARCTION 11/17/2015 CODY KAM MD Ot K21.9 GASTRO-ESOPHAGEAL REFLUX DISEASE WITHOUT 11/17/2015 CODY KAM MD Ot M48.02 SPINAL STENOSIS, CERVICAL REGION 11/17/2015 CODY KAM MD Ot R40.0 SOMNOLENCE 11/17/2015 CODY KAM MD Ot T40.2X5A ADVERSE EFFECT OF OTHER OPIOIDS, INITIAL 11/17/2015 CODY KAM MD Ot Z68.43 BODY MASS INDEX (BMI) 50-59.9 , ADULT 11/17/2015 CODY KAM MD Ot Z91.14 PATIENT'S OTHER NONCOMPLIANCE WITH MEDIC 11/17/2015 CODY KAM MD Ot Z95.5 PRESENCE OF CORONARY ANGIOPLASTY IMPLANT 11/20/2015 [employer] [facility] [employer] Ot R60.0 LOCALIZED EDEMA 11/26/2015 CODY KAM MD Ot E66.01 MORBID (SEVERE) OBESITY DUE TO EXCESS CA 11/26/2015 CODY KAM MD Ot E78.1 PURE HYPERGLYCERIDEMIA 11/26/2015 CODY KAM MD, Ot E78.5 HYPERLIPIDEMIA, UNSPECIFIED 11/26/2015 CODY KAM MD Ot F17.210 NICOTINE DEPENDENCE, CIGARETTES, UNCOMPL 11/26/2015 CODY KAM MD, Ot I10 ESSENTIAL (PRIMARY) HYPERTENSION 11/26/2015 CODY KAM MD, Ot I21.4 NON-ST ELEVATION (NSTEMI) MYOCARDIAL INF 11/26/2015 CODY KAM MD Ot I25.119 ATHSCL HEART DISEASE OF [place] COR ART W 11/26/2015 CODY KAM MD, Ot I25.2 OLD MYOCARDIAL INFARCTION 11/26/2015 CODY KAM MD Ot K21.9 GASTRO-ESOPHAGEAL REFLUX DISEASE WITHOUT 11/26/2015 CODY KAM MD Ot M48.02 SPINAL STENOSIS, CERVICAL REGION 11/26/2015 CODY KAM MD Ot R40.0 SOMNOLENCE 11/26/2015 CODY KAM MD Ot T40.2X5A ADVERSE EFFECT OF OTHER OPIOIDS, INITIAL 11/26/2015 CODY KAM MD Ot Z68.43 BODY MASS INDEX (BMI) 50-59.9 , ADULT 11/26/2015 CODY KAM MD Ot Z91.14 PATIENT'S OTHER NONCOMPLIANCE WITH [...] ELEVATION (NSTEMI) MYOCARDIAL INF 11/26/2015 CODY KAM MD Ot I25.119 ATHSCL HEART DISEASE OF [place] COR ART W 11/26/2015 CODY KAM MD Ot I25.2 OLD MYOCARDIAL INFARCTION 11/26/2015 CODY [...] I10 ESSENTIAL (PRIMARY) HYPERTENSION 09/03/2016 KEYON MORIN MD Ot I25.10 ATHSCL HEART DISEASE OF [place] CORONARY 09/03/2016 KEYON MORIN MD, Ot I25.2 OLD MYOCARDIAL INFARCTION 09/03/2016 KEYON MORIN MD Ot K21.9 GASTRO-ESOPHAGEAL REFLUX DISEASE WITHOUT 09/03/2016 KEYON MORIN MD Ot M10.9 GOUT, UNSPECIFIED 09/03/2016 KEYON MORIN MD Ot M19.90 UNSPECIFIED OSTEOARTHRITIS, UNSPECIFIED 09/03/2016 KEYON MORIN MD Ot M48.02 SPINAL STENOSIS, CERVICAL REGION 09/03/2016 KEYON MORIN MD Ot M54.2 CERVICALGIA 09/03/2016 KEYON MORIN MD Ot R29.2 ABNORMAL REFLEX 09/03/2016 KEYON MORIN MD Ot Z79.82 HALF-WAY (CURRENT) USE OF ASPIRIN 09/03/2016 KEYON MORIN [...] DUE TO EXCESS CA 08/21/2017 YASMANY CAMPBELL MD, Ot F17.210 NICOTINE DEPENDENCE, CIGARETTES, UNCOMPL 08/21/2017 YASMANY CAMPBELL MD Ot I10 ESSENTIAL (PRIMARY) HYPERTENSION 08/21/2017 YASMANY CAMPBELL MD, Ot I25.10 ATHSCL HEART DISEASE OF [place] CORONARY 08/21/2017 YASMANY CAMPBELL MD, Ot I25.2 OLD MYOCARDIAL INFARCTION 08/21/2017 YASMANY CAMPBELL MD Ot K21.9 GASTRO-ESOPHAGEAL REFLUX DISEASE [...] ADULT 08/21/2017 YASMANY CAMPBELL MD Ot Z79.82 HALF-WAY (CURRENT) USE OF ASPIRIN 08/21/2017 YASMANY CAMPBELL MD, Ot Z90.49 ACQUIRED ABSENCE OF OTHER SPECIFIED PART 08/21/2017 YASMANY CAMPBELL MD Ot Z91.14 PATIENT'S OTHER NONCOMPLIANCE WITH MEDIC 08/21/2017 YASMANY CAMPBELL MD Ot Z95.5 PRESENCE OF CORONARY ANGIOPLASTY IMPLANT 08/21/2017 ROB RAMIREZ MD Ot 784.2 SWELLING IN HEAD NECK 08/21/2017 ROB RAMIREZ MD Ot 785.6 ENLARGEMENT LYMPH NODES 08/21/2017 KAHN, DINORA A HARPOONER Ot M25.572 PAIN IN LEFT ANKLE AND JOINTS OF LEFT FO 08/21/2017 [employer] [employer] Ot R60.0 LOCALIZED EDEMA 08/22/2017 YASMANY CAMPBELL MD Ot E66.01 MORBID (SEVERE) OBESITY DUE TO EXCESS CA 08/22/2017 YASMANY CAMPBELL MD Ot F17.210 NICOTINE DEPENDENCE, CIGARETTES, UNCOMPL 08/22/2017 YASMANY CAMPBELL MD Ot I10 ESSENTIAL (PRIMARY) HYPERTENSION 08/22/2017 YASMANY CAMPBELL MD, Ot I25.10 ATHSCL HEART DISEASE OF [place] CORONARY 08/22/2017 YASMANY CAMPBELL MD, Ot I25.2 OLD MYOCARDIAL INFARCTION 08/22/2017 YASMANY CAMPBELL MD, Ot K21.9 GASTRO-ESOPHAGEAL REFLUX DISEASE WITHOUT 08/22/2017 YASMANY CAMPBELL MD, Ot S81.001A UNSPECIFIED OPEN WOUND, RIGHT KNEE, INIT 08/22/2017 YASMANY CAMPBELL MD, Ot S89.91XA UNSPECIFIED INJURY OF RIGHT LOWER LEG, I 08/22/2017 YASMANY CMAPBELL MD Ot W18.39XA OTHER FALL ON SAME LEVEL, INITIAL ENCOUN 08/22/2017 YASMANY CAMPBELL MD, Ot Z68.43 BODY MASS INDEX (BMI) 50-59.9 , ADULT 08/22/2017 YASMANY CAMPBELL MD, Ot 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 08/22/2017 YASMANY CAMPBELL MD Ot Z90.49 ACQUIRED ABSENCE OF OTHER SPECIFIED PART 08/22/2017 YASMANY CAMPBELL MD Ot Z91.14 PATIENT'S OTHER NONCOMPLIANCE WITH MEDIC 08/22/2017 YASMANY CAMPBELL MD Ot Z95.5 PRESENCE OF CORONARY ANGIOPLASTY IMPLANT 01/15/2018 ROB RAMIREZ MD Ot 784.2 SWELLING IN HEAD NECK 01/15/2018 ROB RAMIREZ MD Ot 785.6 ENLARGEMENT LYMPH NODES 01/15/2018 DINORA KAHN HARPOONER Ot M25.572 PAIN IN LEFT ANKLE AND JOINTS OF LEFT FO 01/15/2018 [employer] [employer] Ot R60.0 LOCALIZED EDEMA 01/15/2018 AARON GRACE MD Ot E66.01 MORBID (SEVERE) OBESITY DUE TO EXCESS CA 01/15/2018 AARON GRACE MD Ot I10 ESSENTIAL (PRIMARY) HYPERTENSION 01/15/2018 AARON GRACE MD Ot I25.10 ATHSCL HEART DISEASE OF [place] CORONARY 01/15/2018 AARON GRACE MD Ot I25.2 OLD MYOCARDIAL INFARCTION 01/15/2018 AARON GRACE MD Ot K21.9 GASTRO-ESOPHAGEAL REFLUX DISEASE WITHOUT 01/15/2018 AARON GRACE MD Ot M10.9 GOUT, UNSPECIFIED 01/15/2018 AARON GRACE MD Ot M47.812 SPONDYLOSIS W/O MYELOPATHY OR RADICULOPA 01/15/2018 AARON GRACE MD Ot M47.816 SPONDYLOSIS W/O MYELOPATHY OR RADICULOPA 01/15/2018 AARON GRACE MD Ot R20.0 ANESTHESIA OF SKIN 01/15/2018 AARON GRACE MD Ot Z77.22 CNTCT W AND EXPSR TO ENVIRON TOBACCO SMO 01/15/2018 AARON GRACE MD Ot 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 01/15/2018 AARON GRACE MD Ot Z82.49 FAMILY HX OF ISCHEM HEART DIS AND OTH DI 01/15/2018 AARON GRACE MD Ot Z87.19 PERSONAL HISTORY OF OTHER DISEASES OF 01/15/2018 AARON GRACE MD Ot Z90.49 ACQUIRED ABSENCE OF OTHER SPECIFIED PART 01/15/2018 AARON GRACE MD Ot Z95.5 PRESENCE OF CORONARY ANGIOPLASTY IMPLANT 01/16/2018 AARON GRACE MD Ot E66.01 MORBID (SEVERE) OBESITY DUE TO EXCESS CA 01/16/2018 AARON GRACE MD Ot I10 ESSENTIAL (PRIMARY) HYPERTENSION 01/16/2018 AARON GRACE MD Ot I25.10 ATHSCL HEART DISEASE OF [place] CORONARY 01/16/2018 AARON GRACE MD Ot I25.2 OLD MYOCARDIAL INFARCTION 01/16/2018 AARON GRACE MD Ot K21.9 GASTRO-ESOPHAGEAL REFLUX DISEASE WITHOUT 01/16/2018 AARON GRACE MD Ot M10.9 GOUT, UNSPECIFIED 01/16/2018 AARON GRACE MD Ot M47.812 SPONDYLOSIS W/O MYELOPATHY OR RADICULOPA 01/16/2018 AARON GRACE MD, Ot M47.816 SPONDYLOSIS W/O MYELOPATHY OR RADICULOPA 01/16/2018 AARON GRACE MD Ot R20.0 ANESTHESIA OF SKIN 01/16/2018 AARON GRACE MD, Ot Z77.22 CNTCT W AND EXPSR TO ENVIRON TOBACCO SMO 01/16/2018 AARON GRACE MD, Ot 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 01/16/2018 AARON GRACE MD Ot Z82.49 FAMILY HX OF ISCHEM HEART DIS AND OTH DI 01/16/2018 AARON GRACE MD, Ot Z87.19 PERSONAL HISTORY OF OTHER DISEASES OF TH 01/16/2018 AARON GRACE MD, Ot Z90.49 ACQUIRED ABSENCE OF OTHER SPECIFIED PART 01/16/2018 AARON GRACE MD Ot Z95.5 PRESENCE OF CORONARY ANGIOPLASTY IMPLANT 03/09/2018 ROB RAMIREZ MD Ot 784.2 SWELLING IN HEAD NECK 03/09/2018 ROB RAMIREZ MD Ot 785.6 ENLARGEMENT LYMPH NODES 03/09/2018 DINORA KAHN Ot M25.572 PAIN IN LEFT ANKLE AND JOINTS OF LEFT FO 03/09/2018 CAPO HAYWARD APRN Ot R60.0 LOCALIZED EDEMA 03/09/2018 ROB RAMIREZ MD Ot 784.2 SWELLING IN HEAD NECK 03/09/2018 ROB RAMIREZ MD Ot 785.6 ENLARGEMENT LYMPH NODES 03/09/2018 DINORA KAHN Ot M25.572 PAIN IN LEFT ANKLE AND JOINTS OF LEFT FO 03/09/2018 CAPO HAYWARD APRN Ot R60.0 LOCALIZED EDEMA 03/12/2018 SALTY RODARTE DO Ot Z01.818 ENCOUNTER FOR OTHER PREPROCEDURAL EXAMIN 03/14/2018 SALTY RODARTE DO Ot Z01.818 ENCOUNTER FOR OTHER PREPROCEDURAL EXAMIN 04/05/2018 SALTY RODARTE DO Ot E66.01 MORBID (SEVERE) OBESITY DUE TO EXCESS CA 04/05/2018 SALTY RODARTE DO Ot E78.5 HYPERLIPIDEMIA, UNSPECIFIED 04/05/2018 SALTY RODARTE DO Ot G95.9 DISEASE OF SPINAL CORD, UNSPECIFIED 04/05/2018 SALTY RODARTE DO Ot I10 ESSENTIAL (PRIMARY) HYPERTENSION 04/05/2018 SALTY RODARTE DO Ot I25.10 ATHSCL HEART DISEASE OF [place] CORONARY 04/05/2018 SALTY RODARTE DO Ot I25.2 OLD MYOCARDIAL INFARCTION 04/05/2018 SALTY RODARTE DO Ot K21.9 GASTRO-ESOPHAGEAL REFLUX DISEASE WITHOUT 04/05/2018 SALTY RODARTE DO Ot K59.09 OTHER CONSTIPATION 04/05/2018 SALTY RODARTE DO Ot M21.371 FOOT DROP, RIGHT FOOT 04/05/2018 SALTY RODARTE DO Ot M48.02 SPINAL STENOSIS, CERVICAL REGION 04/05/2018 SALTY RODARTE DO Ot M48.04 SPINAL STENOSIS, THORACIC REGION 04/05/2018 SALTY RODARTE DO Ot R26.2 DIFFICULTY IN WALKING, NOT ELSEWHERE CLA 04/05/2018 SALTY RODARTE DO Ot Z23 ENCOUNTER FOR IMMUNIZATION 04/05/2018 SALTY RODARTE DO Ot Z68.43 BODY MASS INDEX (BMI) 50-59.9, ADULT 04/05/2018 SALTY RODARTE DO Ot Z87.891 PERSONAL HISTORY OF NICOTINE DEPENDENCE 04/05/2018 SALTY RODARTE DO Ot Z95.5 PRESENCE OF CORONARY ANGIOPLASTY IMPLANT 05/14/2018 ROB RAMIREZ MD Ot E78.2 MIXED HYPERLIPIDEMIA 05/14/2018 ROB RAMIREZ MD Ot I25.10 ATHSCL HEART DISEASE OF [place] CORONARY 05/14/2018 ROB RAMIREZ MD Ot R60.0 LOCALIZED EDEMA 05/23/2018 SALTY RODARTE DO Ot Z01.818 ENCOUNTER FOR OTHER PREPROCEDURAL EXAMIN 05/24/2018 SALTY RODARTE DO Ot Z01.818 ENCOUNTER FOR OTHER PREPROCEDURAL EXAMIN Procedures Code Description [place] [address] URINE DRUG SCREEN (IN-HOUSE ) 01/24/2012 URINEDRUG URINE DRUG SCREEN (CON'F ) 01/26/2012 51287 ROUTINE VENIPUNCTURE 04/30/2012 86606 CMP 04/30/2012 [id number] GFR CALC (RESULT ONLY) 04/30/2012 14464 URINE DRUG SCREEN (IN-HOUSE ) 03/08/2013 55264 US SOFT TISSUE (SPECIFY LOCATION) 03/12/2013 26684 ROUTINE VENIPUNCTURE 07/11/2013 63188 CMP 07/11/2013 [id number] GFR CALC (RESULT ONLY) 07/11/2013 18752 [employer] 01/31/2014 [id number] RELEASE THORACIC SPINAL CORD, OPEN APPRO 04/02/2018 Results Test Result Range Complete blood count [...] OF GROWTH Isolated NRG Bacterial blood culture [id number] NRG Bacterial blood culture - 08/21/17 01:30 Bacterial blood culture NG NRG Gram stain microscopy - 08/21/17 02:25 GRAM STAIN RESULT FEW WBC'S, NO BACTERIA OBSERVED NRG Bacteria identification in wound by culture - 08/21/17 02:25 Bacteria identification in wound by culture [id number] NRG FREE TEXT EXTERNAL SENSITIVITY REPORTED 08/23/17 [...] test by minimum inhibitory concentration <= NRG Complete blood count (CBC) with automated white blood cell (WBC) differential - 01/15/18 16:02 Blood leukocytes automated count (number/volume) 7.3 10*3/uL 4.3-11.0 Blood erythrocytes automated count (number/volume) 5.06 10*6/uL 4.35-5.85 Venous blood hemoglobin measurement (mass/volume) 15.4 g/dL 13.3-17.7 Blood hematocrit (volume fraction) 46 % 40-54 Automated erythrocyte mean corpuscular volume 92 [foz_us] 80-99 Automated erythrocyte mean corpuscular hemoglobin (mass per erythrocyte) 30 pg 25-34 Automated erythrocyte mean corpuscular hemoglobin concentration measurement ( mass/volume) 33 g/dL 32-36 Automated erythrocyte distribution width ratio 13.3 % 10.0-14.5 Automated blood platelet count (count/volume) 252 10*3/uL 130-400 Automated blood platelet mean volume measurement 10.0 [foz_us] 7.4-10.4 Automated blood neutrophils/100 leukocytes 59 % 42-75 Automated blood lymphocytes/100 leukocytes 29 % 12-44 Blood monocytes/100 leukocytes 10 % 0-12 Automated blood eosinophils/100 leukocytes 1 % 0-10 Automated blood basophils/100 leukocytes 0 % 0-10 Blood neutrophils automated count (number/volume) 4.3 10*3 1.8-7.8 Blood lymphocytes automated count (number/volume) 2.2 10*3 1.0-4.0 Blood monocytes automated count (number/volume) 0.7 10*3 0.0-1.0 Automated eosinophil count 0.1 10*3/uL 0.0-0.3 Automated blood basophil count (count/volume) 0.0 10*3/uL 0.0-0.1 Comprehensive metabolic panel - 01/15/18 16:02 Serum or plasma sodium measurement (moles/volume) 142 mmol/L 135-145 Serum or plasma potassium measurement (moles/volume) 4.1 mmol/L 3.6-5.0 Serum or plasma chloride measurement (moles/volume) 107 mmol/L 98-107 Carbon dioxide 26 mmol/L 21-32 Serum or plasma anion gap determination (moles/volume) 9 mmol/L 5-14 Serum or plasma urea nitrogen measurement (mass/volume) 12 mg/dL 7-18 Serum or plasma creatinine measurement (mass/volume) 0.94 mg/dL 0.60-1.30 Serum or plasma urea nitrogen/creatinine mass ratio 13 NRG Serum or plasma creatinine measurement with calculation of estimated glomerular filtration rate > NRG Serum or plasma glucose measurement (mass/volume) 95 mg/dL 70-105 Serum or plasma calcium measurement (mass/volume) 9.2 mg/dL 8.5-10.1 Serum or plasma total bilirubin measurement (mass/volume) 0.3 mg/dL 0.1-1.0 Serum or plasma alkaline phosphatase measurement (enzymatic activity/volume) 82 U/L 40-136 Serum or plasma aspartate aminotransferase measurement (enzymatic activity/ volume) 19 U/L 5-34 Serum or plasma alanine aminotransferase measurement (enzymatic activity/volume ) 14 U/L 0-55 Serum or plasma protein measurement (mass/volume) 7.1 g/dL 6.4-8.2 Serum or plasma albumin measurement (mass/volume) 3.9 g/dL 3.2-4.5 CALCIUM CORRECTED 9.3 mg/dL 8.5-10.1 Hemoglobin A1c - 01/15/18 16:02 Blood hemoglobin A1C measurement (mass/volume) 5.3 % 4.0- 5.6 MEAN BLOOD GLUCOSE 105 % <=126 Methicillin resistant Staphylococcus aureus (MRSA) screening culture - 08:16 Methicillin resistant Staphylococcus aureus (MRSA) screening culture NEG NRG Automated blood complete blood count (hemogram) panel - 04/03/18 05:30 Blood leukocytes automated count (number/volume) 19.1 10*3/uL 4.3-11.0 Blood erythrocytes automated count (number/volume) 4.75 10*6/uL 4.35-5.85 Venous blood hemoglobin measurement (mass/volume) 14.4 g/dL 13.3-17.7 Blood hematocrit (volume fraction) 44 % 40-54 Automated erythrocyte mean corpuscular volume 93 [foz_us] 80-99 Automated erythrocyte mean corpuscular hemoglobin (mass per erythrocyte) 30 pg 25-34 Automated erythrocyte mean corpuscular hemoglobin concentration measurement ( mass/volume) 33 g/dL 32-36 Automated erythrocyte distribution width ratio 13.4 % 10.0-14.5 Automated blood platelet count (count/volume) 295 10*3/uL 130-400 Automated blood platelet mean volume measurement 9.4 [foz_us] 7.4-10.4 Comprehensive metabolic panel - 04/03/18 05:30 Serum or plasma sodium measurement (moles/volume) 140 mmol/L 135-145 Serum or plasma potassium measurement (moles/volume) 4.5 mmol/L 3.6-5.0 Serum or plasma chloride measurement (moles/volume) 105 mmol/L 98-107 Carbon dioxide 24 mmol/L 21-32 Serum or plasma anion gap determination (moles/volume) 11 mmol/L 5-14 Serum or plasma urea nitrogen measurement (mass/volume) 24 mg/dL 7-18 Serum or plasma creatinine measurement (mass/volume) 1.18 mg/dL 0.60-1.30 Serum or plasma urea nitrogen/creatinine mass ratio 20 NRG Serum or plasma creatinine measurement with calculation of estimated glomerular filtration rate > NRG Serum or plasma glucose measurement (mass/volume) 114 mg/dL 70-105 Serum or plasma calcium measurement (mass/volume) 9.7 mg/dL 8.5-10.1 Serum or plasma total bilirubin measurement (mass/volume) 0.5 mg/dL 0.1-1.0 Serum or plasma alkaline phosphatase measurement (enzymatic activity/volume) 77 U/L 40-136 Serum or plasma aspartate aminotransferase measurement (enzymatic activity/ volume) 33 U/L 5-34 Serum or plasma alanine aminotransferase measurement (enzymatic activity/volume ) 18 U/L 0-55 Serum or plasma protein measurement (mass/volume) 7.3 g/dL 6.4-8.2 Serum or plasma albumin measurement (mass/volume) 3.9 g/dL 3.2-4.5 CALCIUM CORRECTED 9.8 mg/dL 8.5-10.1 Serum or plasma lithium measurement (moles/volume) - 05/12/18 08:45 BNP level 45.8 pg/mL <100.0 Encounters ACCT No. Visit Date/Time Discharge Status Pt. Type Provider Facility Loc./Unit Complaint [id number] 02/14/2014 10:17:00 02/14/2014 23:59:59 ROB Pike MD [id number] 01/27/2014 14:36:00 01/27/2014 23:59:59 [facility] Out[facility] ROB RAMIREZ MD [id number] 11/07/2013 16:13:00 11/07/2013 23:59:59 [facility] Outpatient ROB RAMIREZ MD [id number] 07/11/2013 14:59:00 07/11/2013 23:59:59 ROB Pike MD [id number] 04/11/2013 16:47:00 04/11/2013 23:59:59 [facility] Outpatient ROB RAMIREZ MD [id number] 03/08/2013 09:11:00 03/08/2013 23:59:59 [facility] Outpatient ROB RAMIREZ MD [id number] 03/08/2013 09:11:00 03/08/2013 23:59:59 [facility] Outpatient ROB RAMIREZ MD [id number] 02/19/2013 18:47:00 02/19/2013 23:59:59 CLS Outpatient ASPEN DAI DO [id number] 12/10/2012 13:53:00 12/10/2012 23:59:59 CLS Outpatient ROB RAMIREZ MD [id number] 08/21/2012 11:13:00 08/21/2012 23:59:59 CLS Outpatient ROB RAMIREZ MD [id number] 04/30/2012 10:11:00 04/30/2012 23:59:59 CLS Outpatient ROB RAMIREZ MD [id number] 01/24/2012 17:57:00 01/24/2012 23:59:59 CLS Outpatient ROB RAMIREZ MD [id number] 10/03/2011 10:36:00 10/03/2011 23:59:59 CLS Outpatient [id number] 04/30/2012 10:11:00 Document Registration [id number] 05/23/2018 09:02:00 05/23/2018 12:27:00 DIS Outpatient SALTY RODARTE DO [facility] PREOP C5-C7 ACDF [id number] 05/12/2018 09:11:00 05/12/2018 23:59:59 CLS Outpatient ROB RAMIREZ MD [facility] MLF [id number] 04/02/2018 07:44:00 04/02/2018 23:59:59 CLS Inpatient SALTY RODARTE DO [facility] 4TH MYLEOPATHY [id number] 03/12/2018 12:11:00 03/12/2018 14:05:00 DIS Outpatient SALTY RODARTE DO [facility] PREOP T9-T11 LAMINECTOMY [id number] 01/15/2018 15:19:00 01/15/2018 18:50:00 DIS Emergency AARON GRACE MD [facility] ER WEAKNESS/FALL [id number] 08/20/2017 23:53:00 08/21/2017 03:31:00 DIS Emergency YASMANY CAMPBELL MD [facility] ER NUMB LEGS FALL AT HOME [id number] 09/15/2016 14:30:00 09/15/2016 23:59:59 CLS Preadmit ROB RAMIREZ MD [facility] RAD TENDERNESS OF LEFT CALF M79.662 [id number] 09/03/2016 11:02:00 09/03/2016 12:35:00 DIS Emergency KEYON MORIN MD [facility] ER L SIDE NECK/SHOULDER PAIN [id number] 11/17/2015 10:03:00 11/17/2015 14:15:00 DIS Inpatient CODY KAM MD [facility] ICU CHEST PAIN;UNCONTROLLED HTN [id number] 08/10/2015 10:49:00 08/10/2015 23:59:59 CLS Outpatient CAPO HAYWARD APRN [facility] RAD FACIAL EDEMA [id number] 07/13/2015 22:39:00 07/13/2015 23:48:00 DIS Emergency TITUS REDDY MD [facility] ER R EYE FOREIGN OBJECT [id number] 04/01/2015 09:05:00 04/01/2015 23:59:59 CLS Outpatient DINORA KAHN HARPOONER [facility] RAD LEFT ANKLE PAIN [id number] 03/13/2015 20:54:00 03/14/2015 12:02:00 DIS Inpatient June SOFIA MD [facility] CSD CHEST PAIN, DIARRHEA [id number] 03/08/2015 12:30:00 03/08/2015 17:14:00 DIS Inpatient LADAN AKINS MD [facility] ICU CHEST PAIN R/O [id number] 06/12/2014 15:52:00 06/12/2014 19:52:00 DIS Emergency MARLEEN MENDEZ DO [facility] ER NECK PAIN [id number] 03/12/2013 15:04:00 03/12/2013 23:59:59 CLS Outpatient ROB RAMIREZ MD [facility] RAD CHRONIC SWELLING LEFT SIDE OF FACE [id number] 07/23/2012 05:40:00 07/23/2012 08:23:00 DIS Emergency [id number] 05/28/2018 11:07:00 ACT Inpatient SALTY RODARTE DO [facility] SURG C5-C7 STENOSIS [id number] 03/26/2018 14:20:00 03/26/2018 23:59:59 [facility] Outpatient JAMES BARNES, [facility] [id number] 02/17/2017 14:40:00 Document Registration
[2018-05-28] MEDS ORDERED: LIDOCAINE PF 1% 5 ML (XYLOCAINE) AMP ONE (12:14)
[2018-05-28] MEDS ORDERED: LIDOCAINE PF 1% 5 ML (XYLOCAINE) AMP INJ ONE (12:20)
[2018-05-28 12:22] LABS: BASOPHILS % (AUTO) 0 % (0-10); EOSINOPHILS # (AUTO) 0.1 10^3/uL (0.0-0.3); EOSINOPHILS % (AUTO) 2 % (0-10); HEMATOCRIT 38 % (40-54); HEMOGLOBIN 12.2 G/DL (13.3-17.7); LYMPHOCYTES # (AUTO) 1.9 X 10^3 (1.0-4.0); LYMPHOCYTES % (AUTO) 20 % (12-44); MEAN CORPUSCULAR HEMOGLOBIN 31 PG (25-34); MEAN CORPUSCULAR HGB CONC 32 G/DL (32-36); MEAN CORPUSCULAR VOLUME 95 FL (80-99); MEAN PLATELET VOLUME 8.6 FL (7.4-10.4); MONOCYTES # (AUTO) 1.1 X 10^3 (0.0-1.0); MONOCYTES % (AUTO) 11 % (0-12); NEUTROPHILS # (AUTO) 6.3 X 10^3 (1.8-7.8); NEUTROPHILS % (AUTO) 67 % (42-75); PLATELET COUNT 329 10^3/uL (130-400); RED CELL DISTRIBUTION WIDTH 13.3 % (10.0-14.5); WHITE BLOOD COUNT 9.4 10^3/uL (4.3-11.0)
[2018-05-28] MEDS: LACTATED RINGERS 1,000 ML IV PRN ×2 (12:25→15:38)
[2018-05-28] MEDS ORDERED: MIDAZOLAM 2 MG/2 ML (VERSED) VIAL ONE (14:06)
[2018-05-28] MEDS ORDERED: fentaNYL INJECTION 250 MCG/5 ML AMP ONE (14:06)
[2018-05-28] MEDS ORDERED: proPOfol 200 MG/20 ML (DIPRIVAN) VIAL IV ONE ×4 (14:09→16:02)
[2018-05-28] MEDS ORDERED: DEXAMETHASONE 10 MG/ML (DECADRON) 1 ML VIAL ONE (14:46)
[2018-05-28] MEDS ORDERED: SUCCINYLCHOLINE INJ 100 MG/5 ML SYR ONE (14:46)
[2018-05-28] MEDS ORDERED: ROCURONIUM 10 MG/ML 5 ML SYRINGE IV ONE (14:46)
[2018-05-28] MEDS ORDERED: ceFAZolin INJECTION 1,000 MG ONE ×2 (15:10→22:20)
[2018-05-28] MEDS ORDERED: NS (IVPB) 100 ML ONE ×2 (15:13→15:59)
[2018-05-28] MEDS ORDERED: LACTATED RINGERS 2,000 ML IV ONE (15:32)
[2018-05-28] MEDS ORDERED: DEXMEDETOMIDINE 200 MCG/2 ML (PRECEDEX) VIAL IV ONE ×2 (16:00→16:03)
[2018-05-28] MEDS ORDERED: SEVOFLURANE (ULTANE) 15 ML INHAL SOLN ONE (17:09)
[2018-05-28] MEDS ORDERED: ACETAMINOPHEN 325 MG TABLET PO PRN (17:45)
[2018-05-28] MEDS ORDERED: morphine INJ 10 MG/ML 1ML (SYR OR VIAL) IM PRN (17:45)
[2018-05-28] MEDS ORDERED: NON-FORMULARY MEDICATION 1 EA EA (Zolpidem Tartrate 10 MG) PO PRN (17:45)
[2018-05-28] MEDS ORDERED: DOCUSATE SODIUM 100 MG (COLACE) CAP PO PRN (17:45)
[2018-05-28] MEDS ORDERED: ONDANSETRON 4 MG/2 ML (SDV) Z0FRAN IV PRN (17:45)
[2018-05-28] MEDS ORDERED: NON-FORMULARY MEDICATION 1 EA EA (Polyethylene Glycol 3350 (Miralax) 17 GM) PO PRN (17:45)
[2018-05-28] MEDS ORDERED: HYDROcodone/APAP 5 MG/325 MG (LORTAB) TAB PO PRN (17:45)
--- NOTE | 2018-05-28 19:07 | Diagnostic Imaging Report ---
EXAMINATION: Intraoperative fluoroscopy INDICATION: C5-C7 anterior C-spine decompression with fusion. COMPARISONS: CT cervical spine performed on 01/15/2018. TECHNIQUE: Fluoroscopy support was provided. There was no radiologist in attendance. FLUOROSCOPY: 27 seconds NUMBER OF VIEWS: 2 FINDINGS: AP and lateral views of the cervical spine were performed intraoperatively during C5-7 anterior fusion. Fixation plate and screws are demonstrated anterior to the cervical spine. IMPRESSION: Intraoperative fluoroscopy obtained during cervical spine fusion, as detailed above. Dictated by: Dictated on workstation # [id number]
[2018-05-28] MEDS ORDERED: NS IV 1000 ML 1,000 ML IV SCH (19:30)
[2018-05-28] MEDS ORDERED: NS IV 1000 ML 1,000 ML ONE (20:51)
[2018-05-28] MEDS ORDERED: NON-FORMULARY MEDICATION 1 EA EA (Baclofen 20 MG) PO SCH (21:00)
[2018-05-28] MEDS ORDERED: CALCIUM POLYCARBOPHIL 1250 MG PO SCH (21:00)
--- NOTE | 2018-05-28 21:28 | NUR ---
10 BREATHS Q2H WHILE AWAKE - PATIENT ONLY DID 5 AND COUGHED AND SAID SOMETHING POPPED IN HIS NECK, RT INFORMED RN OF THIS AND SHE DID AN ASSESSMENT ON HIM. WHE WILL CONTINUE TO MONITOR PATIENT
[2018-05-28] MEDS ORDERED: POLYETHYLENE GLYCOL 17 GM (MIRALAX) PACK PO PRN (21:30)
[2018-05-28] MEDS ORDERED: ZOLPIDEM 5 MG (AMBIEN) TAB PO PRN (21:30)
[2018-05-28] MEDS: FAMOTIDINE 20 MG (PEPCID) TABLET PO SCH (21:37)
[2018-05-28] MEDS: GABAPENTIN 600 MG (NEURONTIN) TAB PO SCH (21:38)
[2018-05-28] MEDS: oxyCODONE/APAP 5/325MG (PERCOCET 5) TABLET PO PRN (21:39)
[2018-05-28] MEDS ORDERED: WATER (STERILE) FOR INJECTION 10 ML ONE (22:20)
[2018-05-28] MEDS: ceFAZolin INJECTION 1,000 MG in WATER (STERILE) FOR INJECTION 10 ML IV SCH (22:30)
[2018-05-29 00:21] VITALS: BP 139/72
[2018-05-29] MEDS: oxyCODONE/APAP 5/325MG (PERCOCET 5) TABLET PO PRN ×2 (02:18→14:13)
[2018-05-29] MEDS ORDERED: BACLOFEN 10 MG (LIORESAL) TAB ONE (02:54)
[2018-05-29] MEDS: BACLOFEN 10 MG (LIORESAL) TAB PO SCH ×3 (02:59→14:12)
--- NOTE | 2018-05-29 02:59 | NUR ---
PT REQUEST TO TAKE BACLOFEN AT TIME TIME. BACLOFEN GIVEN
--- NOTE | 2018-05-29 03:32 | OPERATIVE REPORT ---
DATE OF SERVICE: 05/28/2018 SURGEON: Salty Schuster DO TUCKPOINTER: RAFLA Carlos. This is a medically necessary procedure. Assistance was necessary for retraction of vital neurovascular structures. Without an executive staff assistant, the procedure would not be possible. PREOPERATIVE DIAGNOSES: 1. Cervical myelopathy. 2. Cervical stenosis (central, bony). 3. Cervical radiculopathy. 4. Ambulatory dysfunction. POSTOPERATIVE DIAGNOSES: 1. Cervical myelopathy. 2. Cervical stenosis (central, bony). 3. Cervical radiculopathy. 4. Ambulatory dysfunction. PROCEDURE PERFORMED: 1. C5-C6, C6-C7 anterior cervical diskectomy and fusion. 2. C6 corpectomy (100%). 3. Application of anterior instrumentation, C5-C6, C6-C7. 4. Application of PEEK interbody corpectomy cage. 5. Use of human Allograft for spine. 6. Use of local bone autograft. COMPLICATIONS: None. SPECIMEN SENT: None. DRAIN PLACED: Jordy-Cardenas. ESTIMATED BLOOD LOSS: See anesthesia records. HISTORY OF PRESENT ILLNESS: This is a very pleasant 47-year-old morbidly obese gentleman who presented to me some time ago with severe ambulatory dysfunction of myelopathy. He did have severe central stenosis both in his thoracic spine as well as the cervical. He underwent thoracic decompression a few weeks ago and was back for cervical ACDF. Please note that the patient had profound right lower extremity weakness and ambulatory dysfunction. He did wish to proceed with an operation to prevent progression of his neurologic deficits. OPERATION: The patient was identified by name on wrist band in the preoperative holding area. His operative site was signed, consent was signed. SCDs were placed. Neuro monitoring was hooked up and antibiotics were started. He was taken to the operating room theater and placed under general endotracheal tube anesthesia and then transferred to the operating room table in the supine position. He was prepped and draped in the usual sterile fashion. Formal timeout was conducted. At this point, an incision was made over the medial aspect of the left sternocleidomastoid. I proceeded with standard anterior cervical approach exposing the C5-C6 and C6-C7 level. I have placed a self-retaining retractor and Dewitt pin in the body of 5 and in the body of C6. I placed distraction across the disk space. I then performed an annulotomy followed by complete diskectomy. I repeated this process at C6-C7. Please note due to the patient's body habitus, I had extreme difficulty doing this procedure. After the C6-C7 disk was removed, I turned my attention to the corpectomy. Please note that I had not initially planned to do a corpectomy, but I did not feel satisfied with my decompression at this point. Therefore, I used the high speed bur and I corpectomized the entire vertebral body of C6. This allowed me access to the stenosis both above and below the C6-C7 disk space. I thoroughly decompressed from C5-C7. I took down the posterior longitudinal ligaments and I performed bilateral foraminotomies. I then obtained an appropriate PEEK interbody corpectomy cage. I packed with human allograft and local bone autograft and seated in the midline position. I then obtained a Medtronic plate, placed it over the middle and I placed screws through the plate and into the body of C5 into the body of C7. AP and lateral x-ray demonstrated good positioning of the hardware. I maintained hemostasis, irrigated the wound. I placed a deep Jordy-Cardenas drain alongside the plate. I closed the wound utilizing 3-0 Vicryl followed by running 3-0 subcuticular stitch. I applied dressings, took the patient in the supine position in the PACU where he awoke without incident. He tolerated the procedure well. PLAN: At this time is to admit the patient for IV antibiotics, IV pain control and postoperative monitoring. Discontinue his drain and his catheter per my protocol. Please note instrumentation utilized was Medtronic. Neuro monitoring was stable throughout the procedure. Job ID: [id number] DocumentID: [id number] Dictated Date: 05/28/2018 18:40:19 Drapery Maker Date: 05/29/2018 03:31:18 Dictated By: SALTY SCHUSTER DO
[2018-05-29 04:00] VITALS: BP 137/63
[2018-05-29] MEDS ORDERED: WATER (STERILE) FOR INJECTION 10 ML ONE ×2 (05:11→16:17)
[2018-05-29] MEDS ORDERED: ceFAZolin INJECTION 1,000 MG ONE ×2 (05:11→16:17)
[2018-05-29] MEDS: ceFAZolin INJECTION 1,000 MG in WATER (STERILE) FOR INJECTION 10 ML IV SCH ×2 (05:18→13:30)
[2018-05-29] MEDS: FAMOTIDINE 20 MG (PEPCID) TABLET PO SCH (05:20)
[2018-05-29] MEDS ORDERED: MULTIVIT W/MINERALS TAB (THERAGRAN M) PO SCH (07:00)
[2018-05-29 08:00] VITALS: BP 142/66
[2018-05-29] MEDS ORDERED: NON-FORMULARY MEDICATION 1 EA EA (Amlodipine Besylate 10 MG) PO SCH (09:00)
[2018-05-29] MEDS ORDERED: amLODIPine 10 MG (NORVASC) TAB PO SCH (09:00)
[2018-05-29] MEDS ORDERED: lisINopril 5 MG (PRINIVIL) TABLET PO SCH (09:00)
[2018-05-29] MEDS: CAL. POLYCARBOPHIL 625 MG (FIBERCON) TAB PO SCH ×2 (10:14→14:13)
[2018-05-29] MEDS: GABAPENTIN 600 MG (NEURONTIN) TAB PO SCH ×2 (10:17→14:12)
--- NOTE | 2018-05-29 11:25 | Physical Therapy Evaluation ---
PT Evaluation-General Medical Diagnosis Admission Date May 28, 2018 at 11:07 Medical Diagnosis: C5-6, C6-7 anterior cervical diskectomy and fusion Onset Date: May 28, 2018 Therapy Diagnosis Therapy Diagnosis: impaired mobility, strength, endurance Height/Weight Height (Feet): 6 Height (Inches): 3.00 Weight (Pounds): 437 Weight (Ounces): 0.0 Precautions Precautions/Isolations: Standard Precautions Weight Bear Status Right Lower Extremity: Right Full Weight Bearing Left Lower Extremity: Left Full Weight Bearing Referral Physician: Jose Luis Waldrop Reason for Referral: Evaluation/Treatment Medical History Pertinent Medical History: CAD, Smoking Reviewed History: Yes Social History Home: Assisted Prior/Core FIM Prior Level of Function Therapy Code Descriptions/Definitions Functional [place] Measure: 0=Not Assessed/NA 4=Minimal Assistance 1=Total Assistance 5=Supervision or Setup 2=Maximal Assistance 6=Modified [place] 3=Moderate Assistance 7=Complete [place] Therapy Quality Codes: 6 Independent with activity with or without an assistive device 5 Patient requires set up or clean up by helper. Patient completes activity by themselves 4 Supervision or touching assist (CGA). [place] provide cues , steadying assist 3 The helper provides less than half the effort to complete the activity 2 The helper provides more than half the effort to complete the activity 1 Dependent. The helper does all the effort to complete an activity 7 Patient refused to complete or attempt activity 9 The patient did not perform the activity before the current illness or injury 88 Not attempted due to Medical conditions or safety concerns Functional Abilities and Goals: Independent: Patient completed the activities by him/herself, with or without an assistive device, with no assistance from a helper. Needed Some Help: Patient needed partial assistance from another person to complete activities. Dependent: A helper completed the activities for the patient. Unknown: Not Applicable: Bed Mobility: 1 Transfers (B,C,W/C) (FIM): 1 Patient states he has not been standing since December of last year. PT Evaluation-Current Subjective Patient in wheelchair pre tx, just got back from xray, has pain of 6-7/10 in neck, has neck brace on. Pt/Family Goals "to be able to move his legs better now that he had his neck surgery" Objective Patient Orientation: Person, Place, Situation Attachments: Oxygen neck brace ROM/Strength ROM Lower Extremities limited by morbid obesity and edema Strength Lower Extremities 1/5 both lower extremities Neuromuscular (Tone, Coordination, Reflexes) NT Sensory Vision: Functional Hearing: Functional Transfers Therapy Code Descriptions/Definitions Functional [place] Measure: 0=Not Assessed/NA 4=Minimal Assistance 1=Total Assistance 5=Supervision or Setup 2=Maximal Assistance 6=Modified [place] 3=Moderate Assistance 7=Complete [place] Transfers (B, C, W/C) (FIM): 1 Scootin Supine to/from Sit: 1 Sit to/from Stand: 1 bed t/f WC(FIM only if WC use): 1 Used a standing transfer machine to transfer patient from wheelchair to bed. Needed 3 people to go from sitting to supine and to scoot up in bed. Balance Sitting Static: Normal Sitting Dynamic: Normal Standing Static: Poor Standing Dynamic: Poor Assessment/Needs Patient has profound impairments in strength and mobility, severe edema in both lower extremities. Rehab Potential: Poor PT Short Term Goals Short Term Goals Time Frame: Jun 05, 2018 Transfers (B,C,W/C) (FIM): 2 PT Plan Problem List Problem List: Activity Tolerance, Functional Strength, Safety, Balance, Gait, Transfer, Bed Mobility, ROM Treatment/Plan Treatment Plan: Continue Plan of Care Treatment Plan: Bed Mobility, Concurrent Therapy, Education, Functional Activity Nina, Functional Strength, Gait, Safety, Therapeutic Exercise, Transfers Treatment Duration: Jun 05, 2018 Frequency: 11 times per week Estimated Hrs Per Day: .25 hour per day (15-30') Patient and/or Family Agrees t: Yes Safety Risks/Education Patient Education: Transfer Techniques, Reviewed Precautions, Correct Positioning, Safety Issues Teaching Recipient: Patient Teaching Methods: Demonstration, Discussion Response to Teaching: Reinforcement Needed Discharge Recommendations Plan Patient will perform bed mobility and transfer training, balance and endurance training, functional strengthening, and education, to improve functional mobility and independence at home. Therapy D/C Recommendations: Long Term (TCU/NH) Time/GCodes Time In: 1055 Time Out: 1115 Total Billed Treatment Time: 20 Total Billed Treatment 1 visit MITA GOULD PT May 29, 2018 11:25
[2018-05-29 12:00] VITALS: BP 169/79
--- NOTE | 2018-05-29 12:06 | Diagnostic Imaging Report ---
INDICATION: Postop fusion. TECHNIQUE: AP and lateral views of the cervical spine at 10:47 AM. CORRELATION STUDY: None. FINDINGS: Post operative change with anterior cervical decompression and fusion with plate and screws from C5 to C7. Intervertebral spacer devices are present. The inferior extent of the hardware is incompletely visualized. The visualized portions demonstrate relatively normal alignment. Nonfused segments demonstrate trace anterolisthesis of C3 on C4. Mildly prominent prevertebral soft tissue swelling is suggested. IMPRESSION: Limited surgical changes of anterior cervical decompression and fusion from C5 to C7. The visualized alignment appears to be anatomic. Prevertebral soft tissue swelling is present. Dictated by: Dictated on workstation # [id number]
--- NOTE | 2018-05-29 12:43 | Anesthesia-General Post-Op ---
General Patient Condition Mental Status/LOC: Same as Preop Cardiovascular: Satisfactory Nausea/Vomiting: Absent Respiratory: Satisfactory Pain: Controlled Complications: Absent Post Op Complications Complications None Follow Up Care/Instructions Patient Instructions None needed. Anesthesia/Patient Condition Patient Condition Patient is doing well, no complaints, stable vital signs, no apparent adverse anesthesia problems. No complications reported per nursing. SARBJIT DURAND CRNA May 29, 2018 12:43
--- NOTE | 2018-05-29 15:35 | Physical Therapy Daily Note ---
PT Daily Note-Current Subjective Patient in bed pre tx, agrees to PT, has 8/10 pain in neck. Appearance Patient in wheelchair at bedside per patient request, has cervical collar on, has nurse call, phone, tray, all needs met. Mental Status Patient Orientation: Person, Place, Situation Attachments: Oxygen, IV Transfers Therapy Code Descriptions/Definitions Functional [place] Measure: 0=Not Assessed/NA 4=Minimal Assistance 1=Total Assistance 5=Supervision or Setup 2=Maximal Assistance 6=Modified [place] 3=Moderate Assistance 7=Complete [place] Therapy Quality Codes: 6 Independent with activity with or without an assistive device 5 Patient requires set up or clean up by helper. Patient completes activity by themselves 4 Supervision or touching assist (CGA). [place] provide cues , steadying assist 3 The helper provides less than half the effort to complete the activity 2 The helper provides more than half the effort to complete the activity 1 Dependent. The helper does all the effort to complete an activity 7 Patient refused to complete or attempt activity 9 The patient did not perform the activity before the current illness or injury 88 Not attempted due to Medical conditions or safety concerns Transfers (B, C, W/C) (FIM): 1 Scootin Rollin Supine to/from Sit: 1 Sit to/from Stand: 1 Bed to/from Chair: 1 Patient sat on the edge of the bed for several minutes to perform LE exercises before transferring over to his wheelchair. Patient uses a standing transfer machine to perform transfers. Weight Bearing Right Lower Extremity: Right Full Weight Bearing Left Lower Extremity: Left Full Weight Bearing Exercises Seated Therapy Exercises: Ankle pumps, Long arc quads Seated Reps: 15 Treatments bed mobility, transfers, LE exercises Assessment Current Status: Poor Progress no change in mobility PT Short Term Goals Short Term Goals Time Frame: Jun 05, 2018 Transfers (B,C,W/C) (FIM): 2 PT Plan Problem List Problem List: Activity Tolerance, Functional Strength, Safety, Balance, Gait, Transfer, Bed Mobility, ROM Treatment/Plan Treatment Plan: Continue Plan of Care Treatment Plan: Bed Mobility, Concurrent Therapy, Education, Functional Activity Nina, Functional Strength, Gait, Safety, Therapeutic Exercise, Transfers Treatment Duration: Jun 05, 2018 Frequency: 11 times per week Estimated Hrs Per Day: .25 hour per day (15-30') Patient and/or Family Agrees t: Yes Safety Risks/Education Patient Education: Transfer Techniques, Reviewed Precautions, Correct Positioning, Safety Issues Teaching Recipient: Patient Teaching Methods: Demonstration, Discussion Response to Teaching: Reinforcement Needed Time/GCodes Time In: 1503 Time Out: 1526 Total Billed Treatment Time: 23 Total Billed Treatment 1 visit FA 23 MITA SUAZO PT May 29, 2018 15:35
[2018-05-29 15:48] VITALS: BP 143/84
[2018-05-29] MEDS ORDERED: ceFAZolin 2 GM IV Premixed 0 ML ONE (16:16)
--- NOTE | 2018-05-29 16:46 | Discharge Summary ---
Diagnosis/Chief Complaint Date of Admission May 28, 2018 at 11:07 Date of Discharge 05/29/2018 Discharge Date: May 29, 2018 Discharge Time: 16:44 Admission Diagnosis Admission Diagnosis cervical myelopathy Discharge Diagnosis cervical myelopathy Reason Hospital Visit stenosis Discharge Summary Procedures: C6 corpectomy Discharge Physical Examination Allergies: Coded Allergies: No Known Drug Allergies (Verified , 11/02/07) Vitals & I&Os Vital Signs Date Time Temp Pulse Resp B/P (MAP) Pulse Ox O2 Delivery O2 Flow Rate FiO2 05/29/18 15:48 97.9 81 16 143/84 (103) 100 Nasal Cannula 1.50 Extremities: Other (5/5 motor canelo UE, 2/5 RLE (present preop), wound CDI) Hospital Course admitted for C6 corpectomy. tolerated procedure well wo complications. stable for d/c on POD 1. Discharge Instructions to patient/family Please see electronic discharge instructions given to patient. Discharge Medications Reviewed and agree with Discharge Medication list on patient's Discharge Instruction sheet Clinical Quality Measures DVT/VTE Risk/Contraindication: Risk Factor Score Per Nursin RFS Level Per Nursing on Admit: 4+=Very High SALTY RODARTE DO May 29, 2018 16:46
== END 2018-05-29 18:30 | DRG 472 ==
LOC: 4TH 11:07 → SURG 11:08 → 4TH 20:30
PROVIDERS: ADMIT Orthopaedic Surgery; ATTEND Orthopaedic Surgery
PROC: 0RT30ZZ Resection of Cervical Vertebral Disc, Open Approach (ICD-10-PCS; 2018-05-28)
PROC: 0RG20A0 Fusion of 2 or more Cervical Vertebral Joints with Interbody Fusion Device, Anterior Approach, Anterior Column, Open Approach (ICD-10-PCS; principal; 2018-05-28 14:18)
DX: M50.022 Cervical disc disorder at C5-C6 level with myelopathy (principal); M48.02 Spinal stenosis, cervical region; M54.12 Radiculopathy, cervical region; E66.01 Morbid (severe) obesity due to excess calories; Z68.43 Body mass index [BMI] 50.0-59.9, adult; M47.12 Other spondylosis with myelopathy, cervical region; I25.10 Atherosclerotic heart disease of native coronary artery without angina pectoris; K21.9 Gastro-esophageal reflux disease without esophagitis; I11.9 Hypertensive heart disease without heart failure; E78.5 Hyperlipidemia, unspecified; F17.210 Nicotine dependence, cigarettes, uncomplicated; I25.2 Old myocardial infarction; Z95.5 Presence of coronary angioplasty implant and graft; Z82.49 Family history of ischemic heart disease and other diseases of the circulatory system
CPT/HCPCS: 36415; 72040; 85025; 87081; 94664

== ENCOUNTER 2018-08-01 03:36 | Emergency (ER) | payer MEDICARE, MEDICAID ==
[~2018-08-01] VITALS: Ht 190.5 cm; Wt 181.9 kg
[2018-08-01] MEDS ORDERED: LACTATED RINGERS 1,000 ML IV ONE (03:39)
[2018-08-01 03:55] LABS: BASOPHILS % (AUTO) 0 % (0-10); EOSINOPHILS # (AUTO) 0.1 10^3/uL (0.0-0.3); EOSINOPHILS % (AUTO) 1 % (0-10); HEMATOCRIT 45 % (40-54); HEMOGLOBIN 14.5 G/DL (13.3-17.7); LYMPHOCYTES # (AUTO) 1.7 X 10^3 (1.0-4.0); LYMPHOCYTES % (AUTO) 18 % (12-44); MEAN CORPUSCULAR HEMOGLOBIN 29 PG (25-34); MEAN CORPUSCULAR HGB CONC 33 G/DL (32-36); MEAN CORPUSCULAR VOLUME 89 FL (80-99); MEAN PLATELET VOLUME 9.3 FL (7.4-10.4); MONOCYTES # (AUTO) 0.5 X 10^3 (0.0-1.0); MONOCYTES % (AUTO) 5 % (0-12); NEUTROPHILS # (AUTO) 7.1 X 10^3 (1.8-7.8); NEUTROPHILS % (AUTO) 76 % (42-75); PLATELET COUNT 331 10^3/uL (130-400); RED CELL DISTRIBUTION WIDTH 13.6 % (10.0-14.5); WHITE BLOOD COUNT 9.4 10^3/uL (4.3-11.0)
[2018-08-01] MEDS ORDERED: PANTOPRAZOLE 40 MG (PROTONIX) VIAL IV ONE (04:00)
[2018-08-01] MEDS ORDERED: ONDANSETRON 4 MG/2 ML (SDV) Z0FRAN IVP ONE (04:00)
--- NOTE | 2018-08-01 04:05 | ED GI ---
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), EMS History of Present Illness Date Seen by Provider: Aug 01, 2018 Time Seen by Provider: 03:38 Initial Comments PT ARRIVES VIA [facility] FROM HOME PT STATES "MY STOMACH STARTED BURNING AND I STARTED COUGHING AND I THREW UP TWICE" STATES HIS SYMPTOMS BEGAN AT 2230 TONIGHT STATES SYMPTOMS BEGAN AFTER HE ATE FRIED CHICKEN, BANANAS, AND DRANK MILK TONIGHT STATES HE HAD DIARRHEA X 1 LAST PM DENIES FEVER STATES HE HAS URGE TO URINATE, BUT CANNOT STATES HE IS STILL NAUSEATED DENIES HISTORY OF SIMILAR PT HAS LONG HISTORY OF NONCOMPLIANCE PT TAKES HYDROCODONE FOR CHRONIC PAIN COMPLAINTS--STATES HE RAN OUT YESTERDAY MORNING, AND CAN'T REFILL UNTIL TOMORROW MORNING. PCP: DR. NATHANIEL ROSS SNOWMOBILE MECHANIC: DR. AKINS ORTHOPEDIC SURGEON: DR. RODARTE Allergies and Home Medications Allergies Coded Allergies: No Known Drug Allergies (Verified , 11/02/07) Home Medications Acetaminophen 325 Mg Tablet, 650 MG PO Q6H PRN for PAIN-MILD, (Reported) take 2 (325mg) tabs Amlodipine Besylate 10 Mg Tablet, 10 MG PO DAILY, (Reported) Baclofen 20 Mg Tablet, 20 MG PO QID, (Reported) Calcium Polycarbophil 625 Mg Tablet, 1,250 MG PO QID, (Reported) take 2 (625mg) tabs Docusate Sodium 100 Mg Capsule, 100 MG PO Q12H PRN for CONSTIPATION-1ST LINE, (Reported) Gabapentin 600 Mg Tablet, 600 MG PO QID, (Reported) Hydrocodone/Acetaminophen 1 Each Tablet, 1 TAB PO Q4H PRN for PAIN-MILD TO MODERATE, (Reported) Lisinopril 5 Mg Tablet, 5 MG PO DAILY, (Reported) Polyethylene Glycol 3350 119 Gm Powder, 17 GM PO Q8H PRN for CONSTIPATION-2ND LINE, (Reported) Ticagrelor 90 Mg Tablet, 90 MG PO BID, (Reported) Zolpidem Tartrate 10 Mg Tablet, 10 MG PO HS PRN for SLEEP, (Reported) Review of Systems Review of Systems Constitutional: No fever Respiratory: Cough; Denies Shortness of Air Cardiovascular: No Symptoms Reported Gastrointestinal: See HPI, Abdominal Pain, Diarrhea, Nausea, Vomiting Genitourinary: See HPI Musculoskeletal: other (CHRONIC PAIN COMPLAINTS--LEG PAIN, BACK AND NECK PAIN --TAKES HYDROCODONE--STATES HIS LAST DOSE WAS YESTERDAY. " LIMITED MOBILITY" DUE TO CHRONIC BACK PAIN ) Skin: no symptoms reported Psychiatric/Neurological: No Symptoms Reported Endocrine: No Symptoms Reported Hematologic/Lymphatic: No Symptoms Reported Past Kspsbke-Buwymj-Gfaejy Hx Patient Social History Alcohol Use: Occasionally Uses Alcohol Beverage of Choice: Beer Recreational Drug Use: No Smoking Status: Current Everyday Smoker (1 PPD) Type Used: Cigarettes 2nd Hand Smoke Exposure: No Recent Foreign Travel: No Contact w/Someone Who Travel: No Recent Hopitalizations: No Immunizations Up To Date Tetanus Booster (TDap): More than 5yrs PED Vaccines UTD: No Date of Pneumonia Vaccine: Jul 18, 2017 Date of Influenza Vaccine: Mar 07, 2015 Seasonal Allergies Seasonal Allergies: Yes Past Medical History Surgeries: Yes (CARDIAC STENTS X 3; RUPTURED APPENDIX, BMT, WISDOM TEETH,THORACIC LAMINECTOMY 04/03/18; CERVICAL SPINE DISCECTOMY AND FUSION C5-C6, C6-C7 05/28/18--DR. 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/NUMBNESS IN LEGS) Neuropathy Reproductive Disorders: No Sexually Transmitted Disease: No HIV/AIDS: No Genitourinary: No Gastrointestinal: Yes Gastroesophageal Reflux, Chronic Constipation Musculoskeletal: Yes (cervical spinal stenosis-CHRONIC NECK PAIN AND CHRONIC BACK PAIN --S/P SURGERIES ) Degenerate Disk Disease, Chronic Back Pain, Gout Endocrine: Yes (MORBID OBESITY) HEENT: No Loss of Vision: Denies Hearing Impairment: Denies Cancer: No Psychosocial: No Integumentary: No Blood Disorders: No Adverse Reaction/Blood Tranf: No Family Medical History Cardiovascular disease 19 FATHER (BYPASS) Hypercholesterolemia 19 FATHER Hypertension 19 FATHER Physical Exam Vital Signs Vital Signs - First Documented 08/01/18 03:39 Temp 97.6 Pulse 78 Resp 20 B/P (MAP) 170/95 (120) O2 Delivery Room Air Capillary Refill : Height/Weight/BMI Height: 6'3.00" Weight: 437lbs. 0.0oz. 198.375831um; 54.6 BMI Method:Stated General Appearance: obese (MORBIDLY), other (MALODOROUS; VERY DRAMATIC; KEEPS HANDS/ARMS OVER FACE; FREQUENT HARSH, VERY LOUD FORCED COUGH) HEENT: other (TONGUE IS VERY LARGE AND VOICE IS SOMEWHAT MUFFLED--NORMAL FOR PT) Respiratory: normal breath sounds, no respiratory distress, no accessory muscle use Cardiovascular: regular rate, rhythm, no murmur Gastrointestinal: normal bowel sounds, tenderness (DIFFUSE UPPER ABDOMINAL TENDERNESS, ESPEICALLY IN EPIGASTRIC AREA) Extremities: no pedal edema Neurologic/Psychiatric: director of individual giving II-XII nml as tested, no motor/sensory deficits, alert, oriented x 3 Skin: normal color, warm/dry Progress/Results/Core Measures Results/Orders Lab Results Laboratory Tests Test 08/01/18 03:47 08/01/18 05:53 Range/Units White Blood Count 9.4 4.3-11.0 10^3/uL Red Blood Count 5.00 4.35-5.85 10^6/uL Hemoglobin 14.5 13.3-17.7 G/DL Hematocrit 45 40-54 % Mean Corpuscular Volume 89 80-99 FL Mean Corpuscular Hemoglobin 29 25-34 PG Mean Corpuscular Hemoglobin Concent 33 32-36 G/DL Red Cell Distribution Width 13.6 10.0-14.5 % Platelet Count 331 130-400 10^3/uL Mean Platelet Volume 9.3 7.4-10.4 FL Neutrophils (%) (Auto) 76 H 42-75 % Lymphocytes (%) (Auto) 18 12-44 % Monocytes (%) (Auto) 5 0-12 % Eosinophils (%) (Auto) 1 0-10 % Basophils (%) (Auto) 0 0-10 % Neutrophils # (Auto) 7.1 1.8-7.8 X 10^3 Lymphocytes # (Auto) 1.7 1.0-4.0 X 10^3 Monocytes # (Auto) 0.5 0.0-1.0 X 10^3 Eosinophils # (Auto) 0.1 0.0-0.3 10^3/uL Basophils # (Auto) 0.0 0.0-0.1 10^3/uL Sodium Level 141 135-145 MMOL/L Potassium Level 4.1 3.6-5.0 MMOL/L Chloride Level 105 98-107 MMOL/L Carbon Dioxide Level 25 21-32 MMOL/L Anion Gap 11 5-14 MMOL/L Blood Urea Nitrogen 8 7-18 MG/DL Creatinine 0.90 0.60-1.30 MG/DL Estimat Glomerular Filtration Rate > 60 BUN/Creatinine Ratio 9 Glucose Level 125 H 70-105 MG/DL Calcium Level 9.7 8.5-10.1 MG/DL Corrected Calcium 9.8 8.5-10.1 MG/DL Magnesium Level 2.0 1.8-2.4 MG/DL Total Bilirubin 0.3 0.1-1.0 MG/DL Aspartate Amino Transf (AST/SGOT) 18 5-34 U/L Alanine Aminotransferase (ALT/SGPT) 18 0-55 U/L Alkaline Phosphatase 92 40-136 U/L Total Protein 7.8 6.4-8.2 GM/DL Albumin 3.9 3.2-4.5 GM/DL Amylase Level 39 25-125 U/L Lipase 5 L 8-78 U/L Serum Alcohol < 10 <10 MG/DL Urine Color YELLOW Urine Clarity CLEAR Urine pH 7 5-9 Urine Specific [place] 1.015 L 1.016-1.022 Urine Protein 1+ H NEGATIVE Urine Glucose (UA) NEGATIVE NEGATIVE Urine Ketones NEGATIVE NEGATIVE Urine Nitrite NEGATIVE NEGATIVE Urine Bilirubin NEGATIVE NEGATIVE Urine Urobilinogen NORMAL NORMAL MG/DL Urine Leukocyte Esterase 1+ H NEGATIVE Urine RBC (Auto) NEGATIVE NEGATIVE Urine RBC NONE /HPF Urine WBC RARE /HPF Urine Squamous Epithelial Cells RARE /HPF Urine Crystals PRESENT H /LPF Urine Calcium Oxalate Crystals FEW H /LPF Urine Bacteria NEGATIVE /HPF Urine Casts NONE /LPF Urine Mucus MODERATE H /LPF Urine Culture Indicated NO Urine Opiates Screen POSITIVE H NEGATIVE Urine Oxycodone Screen NEGATIVE NEGATIVE Urine Methadone Screen NEGATIVE NEGATIVE Urine Propoxyphene Screen NEGATIVE NEGATIVE Urine Barbiturates Screen NEGATIVE NEGATIVE Ur Tricyclic Antidepressants Screen NEGATIVE NEGATIVE Urine Phencyclidine Screen NEGATIVE NEGATIVE Urine Amphetamines Screen NEGATIVE NEGATIVE Urine Methamphetamines Screen NEGATIVE NEGATIVE Urine Benzodiazepines Screen NEGATIVE NEGATIVE Urine Cocaine Screen NEGATIVE NEGATIVE Urine Cannabinoids Screen NEGATIVE NEGATIVE My Orders Orders - TATO BURNETTE DO Ed Iv/Invasive Line Start (08/01/18 03:39) Monitor-Rhythm Ecg Trace Only (08/01/18 03:39) Alcohol (08/01/18 03:39) Amylase (08/01/18 03:39) Cbc With Automated Diff (08/01/18 03:39) Comprehensive Metabolic Panel (08/01/18 03:39) Drug Screen Stat (Urine) (08/01/18 03:39) Lipase (08/01/18 03:39) Magnesium (08/01/18 03:39) Ua Culture If Indicated (08/01/18 03:39) Ed Iv/Invasive Line Start (08/01/18 03:39) Lactated Ringers (Lr 1000 Ml Iv Solution (08/01/18 03:39) Ondansetron Injection (Zofran Injectio (08/01/18 04:00) Pantoprazole Injection (Protonix Injecti (08/01/18 04:00) Ct Chest/Abdomen/Pelvis W (08/01/18 04:23) Acute Abd Series (08/01/18 04:23) Benzonatate Capsule (Tessalon Perles) (08/01/18 04:30) Promethazine Syrup (Phenergan Syrup) (08/01/18 04:30) Promethazine/ Codeine Syrup (Phenergan W (08/01/18 04:25) Promethazine/ Codeine Syrup (Phenergan W (08/01/18 04:30) Lidocaine 2% Viscous 15 Ml (Xylocaine Vi (08/01/18 07:15) Mylanta Po (08/01/18 07:15) Hyoscyamine Sl Tablet (Levsin Sl Tablet) (08/01/18 07:15) Medications Given in ED Current Medications Medications Dose Ordered Sig/Iván Route Start Time Stop Time Status Last Admin Dose Admin Lactated Ringer's 1,000 ml @ 0 mls/hr Q0M ONCE IV 08/01/18 03:39 08/01/18 03:41 DC 08/01/18 03:59 999 MLS/HR Ondansetron HCl 8 mg ONCE ONCE IVP 08/01/18 04:00 08/01/18 04:01 DC 08/01/18 03:59 8 MG Pantoprazole 40 mg ONCE ONCE IV 08/01/18 04:00 08/01/18 04:01 DC 08/01/18 03:59 40 MG Promethazine HCl 10 ml ONCE ONCE PO 08/01/18 04:30 08/01/18 04:31 DC 08/01/18 04:50 10 ML Vital Signs/I&O 08/01/18 03:39 Temp 97.6 Pulse 78 Resp 20 B/P (MAP) 170/95 (120) O2 Delivery Room Air Progress Progress Note : Progress Note NO ACTUAL VOMITING DURING ER STAY COUGH IMPROVED WITH MEDICATIONS PT REQUESTS GI COCKTAIL PRIOR TO DISMISSAL Diagnostic Imaging Comments ABDOMEN XRAYS--NONSPECIFIC BOWEL PATTERN, PENDING RADIOLOGIST REVIEW CT CHEST/ABDOMEN/PELVIS--NO ACUTE PROCESS, PER RADIOLOGIST REPORT AT 0705 Reviewed: Reviewed by Me Departure Impression Primary Impression: NAUSEA, VOMITNG AND ABDOMINAL PAIN Additional Impressions: POSSIBLE OPIATE WITHDRAWL Morbid obesity Cough Disposition: HOME, SELF-CARE Condition: Improved Departure-Patient Inst. Referrals: ROB RAMIREZ MD (PCP/Family) Primary Care Physician Patient Instructions: [id number] Add. Discharge Instructions: CLEAR LIQUIDS--WATER, BROTH, JELLO GATORADE TOMORROW IF YOU ARE BETTER, ADD BRATS DIET TO CLEAR LIQUIDS--BANANAS, RICE, APPLESAUCE, TOAST, SALTINES FOLLOW UP WITH YOUR DR IN 1-2 DAYS IF NO BETTER All discharge instructions reviewed with patient and/or family. Voiced understanding. TATO BURNETTE DO Aug 01, 2018 04:05
[2018-08-01 04:16] LABS: ALANINE AMINOTRANSFERASE 18 U/L (0-55); ALBUMIN 3.9 GM/DL (3.2-4.5); ALKALINE PHOSPHATASE 92 U/L (40-136); AMYLASE 39 U/L (25-125); BILIRUBIN,TOTAL 0.3 MG/DL (0.1-1.0); BUN/CREATININE RATIO 9; CALCIUM 9.7 MG/DL (8.5-10.1); CARBON DIOXIDE 25 MMOL/L (21-32); CHLORIDE 105 MMOL/L (98-107); GFR ESTIMATED > 60; GLUCOSE 125 MG/DL (70-105); LIPASE 5 U/L (8-78); POTASSIUM 4.1 MMOL/L (3.6-5.0); SODIUM 141 MMOL/L (135-145); TOTAL PROTEIN 7.8 GM/DL (6.4-8.2)
[2018-08-01] MEDS ORDERED: PROMETHAZINE/ CODEINE SYRUP 5 ML UDC ONE ×2 (04:25→04:30)
[2018-08-01] MEDS ORDERED: BENZONATATE 100 MG (TESSALON) CAPSULE PO SCH (04:30)
[2018-08-01] MEDS ORDERED: PROMETHAZINE 6.25 MG/5 ML SYRUP (PHENERGAN) 5 ML UDC PO ONE (04:30)
[2018-08-01 06:16] LABS: BILIRUBIN,URINE NEGATIVE (NEGATIVE); CLARITY,URINE CLEAR; COLOR,URINE YELLOW; GLUCOSE, URINE (UA) NEGATIVE (NEGATIVE); KETONES,URINE NEGATIVE (NEGATIVE); LEUKOCYTE ESTERASE ,URINE 1+ (NEGATIVE); NITRITE,URINE NEGATIVE (NEGATIVE); PH,URINE 7 (5-9); PROTEIN,URINE 1+ (NEGATIVE); UROBILINOGEN,URINE NORMAL (NORMAL)
--- NOTE | 2018-08-01 06:36 | Diagnostic Imaging Report ---
INDICATION: Nausea and vomiting. Decubitus view left lateral as well as PA chest. FINDINGS: Lungs are clear. There is mild gaseous distention of the small bowel. There is gas and stool in the colon. Left lateral decubitus view shows a few air-fluid levels. There is no evidence of free air. IMPRESSION: Nonspecific finding consistent with generalized ileus. No evidence of perforated bowel. Minimal distention of the small bowel. Dictated by: Dictated on workstation # [id number]
[2018-08-01 06:39] LABS: AMPHETAMINE SCREEN, URINE NEGATIVE (NEGATIVE); BARBITURATE SCREEN URINE NEGATIVE (NEGATIVE); BENZODIAZEPINES SCREEN URINE NEGATIVE (NEGATIVE); CANNABINOID SCREEN, URINE NEGATIVE (NEGATIVE); COCAINE SCREEN URINE NEGATIVE (NEGATIVE); METHADONE STAT NEGATIVE (NEGATIVE); METHAMPHETAMINE SCREEN URINE S NEGATIVE (NEGATIVE); OPIATE SCREEN URINE POSITIVE (NEGATIVE); OXYCODONE STAT NEGATIVE (NEGATIVE); PROPOXYPHENE STAT NEGATIVE (NEGATIVE); TRICYCLIC ANTIDEPRESSANTS SCRE NEGATIVE (NEGATIVE)
[2018-08-01 06:43] LABS: BACTERIA,URINE NEGATIVE /HPF; CALCIUM OXALATE CRYSTALS,UR FEW /LPF; SQUAMOUS EPITHELIAL CELL,UR RARE /HPF; WBC,URINE RARE /HPF
--- NOTE | 2018-08-01 06:50 | Diagnostic Imaging Report ---
PROCEDURE: CT chest, abdomen, and pelvis with contrast. TECHNIQUE: Multiple contiguous axial images were obtained through the chest, abdomen, and pelvis after the administration of intravenous contrast. Auto Exposure Controls were utilized during the CT exam to meet ALARA standards for radiation dose reduction. INDICATION: Abdominal pain with nausea and vomiting. CT chest: The lungs are well-aerated and clear. No pleural effusion or pericardial effusion. No mediastinal or hilar adenopathy. Aorta appears normal. There is opacification of aorta and pulmonary arteries. No bony lesions. IMPRESSION: Negative CT of the chest. CT abdomen and pelvis: Liver is normal. Gallbladder and bile ducts are normal. Pancreas and spleen are normal. Adrenal glands are normal. Kidneys are normal. There is good opacification of the abdominal organs and vessels following IV contrast. The stomach and small bowel are not distended. No evidence of bowel wall thickening. Colon shows normal stool and gas pattern. The appendix is not identified, though no findings to indicate inflammatory changes about the cecum and terminal ileum. The bladder is opacified and not distended. Prostate is not enlarged. There is no free air or free fluid. No intra-abdominal adenopathy. No bony lesions. IMPRESSION: 1. No evidence of bowel obstruction or constipation. No inflammatory bowel changes noted. 2. Kidneys, ureter and bladder appear normal. Dictated by: Dictated on workstation # [id number]
[2018-08-01] MEDS ORDERED: ANTACID SUSP 30 ML UDC (MYLANTA) ONE (07:14)
[2018-08-01] MEDS ORDERED: HYOSCYAMINE 0.125 MG (LEVSIN) TAB ONE (07:15)
[2018-08-01] MEDS ORDERED: HYOSCYAMINE 0.125 MG (LEVSIN) TAB SL ONE (07:15)
[2018-08-01] MEDS ORDERED: ANTACID SUSP 30 ML UDC (MYLANTA) PO ONE (07:15)
[2018-08-01] MEDS ORDERED: LIDOCAINE 2% VISCOUS 15 ML UDC PO ONE (07:15)
[2018-08-01 08:05] VITALS: BP 159/108
== END 2018-08-01 08:05 | disposition home or self-care (01) ==
LOC: EDUNIT# 03:36 → ER 03:37
DX: R11.2 Nausea with vomiting, unspecified (principal); E66.01 Morbid (severe) obesity due to excess calories; R05 Cough; I25.10 Atherosclerotic heart disease of native coronary artery without angina pectoris; I25.2 Old myocardial infarction; E78.00 Pure hypercholesterolemia, unspecified; I10 Essential (primary) hypertension; G62.9 Polyneuropathy, unspecified; M10.9 Gout, unspecified; M48.02 Spinal stenosis, cervical region; K21.9 Gastro-esophageal reflux disease without esophagitis; F17.210 Nicotine dependence, cigarettes, uncomplicated; Z91.14 Patient's other noncompliance with medication regimen; Z82.49 Family history of ischemic heart disease and other diseases of the circulatory system; Z68.43 Body mass index [BMI] 50.0-59.9, adult; Z90.49 Acquired absence of other specified parts of digestive tract; Z87.19 Personal history of other diseases of the digestive system; Z95.5 Presence of coronary angioplasty implant and graft; Z98.890 Other specified postprocedural states; Z98.1 Arthrodesis status
CPT/HCPCS: 36415; 71260; 74022; 74177; 80053; 80306; 80320; 81000; 82150; 83690; 83735; 85025; 93041; 96361; 96374; 96375

== ENCOUNTER 2018-08-03 20:37 | Emergency (ER) | payer MEDICARE, MEDICAID ==
[~2018-08-03] VITALS: Ht 190.5 cm; Wt 181.9 kg
[2018-08-03] MEDS ORDERED: ONDA8TAB13 (20:49)
[2018-08-03] MEDS ORDERED: DICY20TA10 (20:49)
[2018-08-03] MEDS ORDERED: PANT40TA3 (20:49)
[2018-08-03] MEDS ORDERED: NS IV 500 ML 500 ML IV ONE (20:51)
[2018-08-03] MEDS ORDERED: NS IV 1000 ML 1,000 ML IV SCH ×3 (20:51→23:25)
--- NOTE | 2018-08-03 20:51 | NUR ---
ekg by me
[2018-08-03] MEDS ORDERED: CEFEPIME INJECTION 1,000 MG in WATER (STERILE) FOR INJECTION 10 ML IV ONE (21:00)
--- NOTE | 2018-08-03 21:00 | NUR ---
pt cleaned, linens changed. pt tolerated well.
[2018-08-03 21:02] LABS: BASOPHILS % (AUTO) 0 % (0-10); EOSINOPHILS % (AUTO) 0 % (0-10); HEMATOCRIT 46 % (40-54); HEMOGLOBIN 15.3 G/DL (13.3-17.7); LYMPHOCYTES # (AUTO) 1.8 X 10^3 (1.0-4.0); LYMPHOCYTES % (AUTO) 12 % (12-44); MEAN CORPUSCULAR HEMOGLOBIN 29 PG (25-34); MEAN CORPUSCULAR HGB CONC 33 G/DL (32-36); MEAN CORPUSCULAR VOLUME 88 FL (80-99); MEAN PLATELET VOLUME 9.1 FL (7.4-10.4); MONOCYTES # (AUTO) 1.4 X 10^3 (0.0-1.0); MONOCYTES % (AUTO) 9 % (0-12); NEUTROPHILS # (AUTO) 11.4 X 10^3 (1.8-7.8); NEUTROPHILS % (AUTO) 78 % (42-75); PLATELET COUNT 403 10^3/uL (130-400); RED CELL DISTRIBUTION WIDTH 13.6 % (10.0-14.5); WHITE BLOOD COUNT 14.6 10^3/uL (4.3-11.0)
--- NOTE | 2018-08-03 21:04 | ED Syncope ---
General Chief Complaint: Dizziness/Syncope Stated Complaint: SYNCOPAL EPISODE Source of Information: Patient, EMS Exam Limitations: No Limitations History of Present Illness Date Seen by Provider: Aug 03, 2018 Time Seen by Provider: 20:45 Initial Comments Patient presents to the ER by [facility] with chief complaint that he was outs amy talking to a friend and did not feel well so he went inside. He says he has not been drinking very well and he's been having some diarrhea since Monday, 4 days ago. He has also had some nausea and vomiting. Was here a couple days ago in the ER apparently for some abdominal pain and put out on some medicines. He denies any fevers or chills. He said he sat down on his commode trying to the bathroom and was using a metal chair in front of him to hold onto while he strained. He uses opiates for his spinal stenosis and has chronic constipation. He says he suddenly lost consciousness and her members is very striking the metal chair and then following the floor. He had BM all over him. He said his family insisted on calling an ambulance he just wanted to get cleaned up. He is not diabetic area and he does have a history of cardiac stents but no dysrhythmias. He is on Brilinta but no blood thinners. EMS made multiple attempts at an IV stick unsuccessfully. His blood pressure was low in the 80s to 90s systolic. He says this has happened before. Allergies and Home Medications Allergies Coded Allergies: No Known Drug Allergies (Verified , 11/02/07) Home Medications Acetaminophen 325 Mg Tablet, 650 MG PO Q6H PRN for PAIN-MILD, (Reported) take 2 (325mg) tabs Amlodipine Besylate 10 Mg Tablet, 10 MG PO DAILY, (Reported) Baclofen 20 Mg Tablet, 20 MG PO QID, (Reported) Calcium Polycarbophil 625 Mg Tablet, 1,250 MG PO QID, (Reported) take 2 (625mg) tabs Docusate Sodium 100 Mg Capsule, 100 MG PO Q12H PRN for CONSTIPATION-1ST LINE, (Reported) Gabapentin 600 Mg Tablet, 600 MG PO QID, (Reported) Hydrocodone/Acetaminophen 1 Each Tablet, 1 TAB PO Q4H PRN for PAIN-MILD TO MODERATE, (Reported) Lisinopril 5 Mg Tablet, 5 MG PO DAILY, (Reported) Polyethylene Glycol 3350 119 Gm Powder, 17 GM PO Q8H PRN for CONSTIPATION-2ND LINE, (Reported) Ticagrelor 90 Mg Tablet, 90 MG PO BID, (Reported) Zolpidem Tartrate 10 Mg Tablet, 10 MG PO HS PRN for SLEEP, (Reported) Patient Home Medication List Home Medication List Reviewed: Yes Review of Systems Constitutional: No chills, No fever, No malaise; weakness EENTM: No ear discharge, No hearing loss, No ear pain Respiratory: No cough, No dyspnea on exertion, No short of breath Cardiovascular: No chest pain, No edema, No palpitations Gastrointestinal: No abdominal pain; constipation, diarrhea; No nausea Genitourinary: No discharge, No dysuria Musculoskeletal: No joint swelling, No muscle pain Skin: No dryness, No rash Psychiatric/Neurological: Denies Headache, Denies Numbness Past Wmcibyh-Xdjmqg-Lcldbk Hx Patient Social History Alcohol Use: Occasionally Uses Number of Drinks Today: AA Alcohol Beverage of Choice: Beer Recreational Drug Use: No Smoking Status: Current Everyday Smoker Type Used: Cigarettes 2nd Hand Smoke Exposure: No Recent Foreign Travel: No Contact w/Someone Who Travel: No Recent Hopitalizations: Yes Immunizations Up To Date Tetanus Booster (TDap): More than 5yrs PED Vaccines UTD: No Date of Pneumonia Vaccine: Jul 18, 2017 Date of Influenza Vaccine: Mar 07, 2015 Seasonal Allergies Seasonal Allergies: Yes Past Medical History Surgeries: Yes Appendectomy, Cardiac, Coronary Stent, Ear Surgery, Orthopedic Respiratory: No Currently Using CPAP: No Currently Using BIPAP: No Cardiac: Yes (STENT IN and 2 stents at [facility] 03/07/15) Coronary Artery Disease, Heart Attack, High Cholesterol, Hypertension Neurological: Yes (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/NUMBNESS IN LEGS) Neuropathy Reproductive Disorders: No Sexually Transmitted Disease: No HIV/AIDS: No Genitourinary: No Gastrointestinal: Yes Gastroesophageal Reflux, Chronic Constipation Musculoskeletal: Yes Degenerate Disk Disease, Chronic Back Pain, Gout Endocrine: Yes (MORBID OBESITY) HEENT: No Loss of Vision: Denies Hearing Impairment: Denies Cancer: No Psychosocial: No Integumentary: No Blood Disorders: No Adverse Reaction/Blood Tranf: No Family Medical History Cardiovascular disease 19 FATHER (BYPASS) Hypercholesterolemia 19 FATHER Hypertension 19 FATHER Physical Exam Vital Signs Vital Signs - First Documented 08/03/18 20:40 Temp 97.2 Pulse 71 Resp 18 B/P (MAP) 86/47 (60) Pulse Ox 98 O2 Delivery Room Air Capillary Refill : Height, Weight, BMI Height: 6'3.00" Weight: 401lbs. 0.0oz. 181.540028hm; 54.6 BMI Method:Actual General Appearance: No Apparent Distress, Obese (morbidly) HEENT: PERRL/EOMI, TMs Normal, Normal ENT Inspection, Pharynx Normal, Other (atraumatic appearing head with moderate to extensive dental caries. Negative for Flores sign and raccoon eyes or hemotympanum. C-collar in place.) Neck: Normal Inspection, Non Tender, Other (c-collar in place) Cardiovascular: Regular Rate, Rhythm, Normal Peripheral Pulses Respiratory: Lungs Clear, Normal Breath Sounds, No Accessory Muscle Use, No Respiratory Distress Gastrointestinal: Normal Bowel Sounds, Non Tender, Soft Neurologic/Psychiatric: Alert, Oriented x3, No Motor/Sensory Deficits, Normal Mood/Affect, seam stayer II-XII Norm as Tested Cranial Nerves: Normal Hearing, Normal Speech, PERRL Coordination/Gait: Normal Finger to Nose Motor/Sensory: No Motor Deficit, No Sensory Deficit Skin: Normal Color, Warm/Dry Focused Exam Lactate Level 08/03/18 20:57: Lactic Acid Level 2.45*H 08/03/18 23:30: Lactic Acid Level Laboratory Tests Test 08/03/18 20:57 08/03/18 23:30 Lactic Acid Level 2.45 MMOL/L (0.50-2.00) *H Progress/Results/Core Measures Results/Orders Lab Results Laboratory Tests Test 08/03/18 20:45 08/03/18 20:57 08/03/18 23:05 08/03/18 23:30 Range/Units White Blood Count 14.6 H 4.3-11.0 10^3/uL Red Blood Count 5.25 4.35-5.85 10^6/uL Hemoglobin 15.3 13.3-17.7 G/DL Hematocrit 46 40-54 % Mean Corpuscular Volume 88 80-99 FL Mean Corpuscular Hemoglobin 29 25-34 PG Mean Corpuscular Hemoglobin Concent 33 32-36 G/DL Red Cell Distribution Width 13.6 10.0-14.5 % Platelet Count 403 H 130-400 10^3/uL Mean Platelet Volume 9.1 7.4-10.4 FL Neutrophils (%) (Auto) 78 H 42-75 % Lymphocytes (%) (Auto) 12 12-44 % Monocytes (%) (Auto) 9 0-12 % Eosinophils (%) (Auto) 0 0-10 % Basophils (%) (Auto) 0 0-10 % Neutrophils # (Auto) 11.4 H 1.8-7.8 X 10^3 Lymphocytes # (Auto) 1.8 1.0-4.0 X 10^3 Monocytes # (Auto) 1.4 H 0.0-1.0 X 10^3 Eosinophils # (Auto) 0.0 0.0-0.3 10^3/uL Basophils # (Auto) 0.0 0.0-0.1 10^3/uL Neutrophils % (Manual) 76 % Lymphocytes % (Manual) 11 % Monocytes % (Manual) 7 % Eosinophils % (Manual) 0 % Basophils % (Manual) 0 % Band Neutrophils 2 % Reactive Lymphocytes 4 % Blood Morphology Comment NORMAL Prothrombin Time 13.2 12.2-14.7 SEC INR Comment 1.0 0.8-1.4 Activated Partial Thromboplast Time 27 24-35 SEC Sodium Level 138 135-145 MMOL/L Potassium Level 3.4 L 3.6-5.0 MMOL/L Chloride Level 101 98-107 MMOL/L Carbon Dioxide Level 26 21-32 MMOL/L Anion Gap 11 5-14 MMOL/L Blood Urea Nitrogen 13 7-18 MG/DL Creatinine 2.32 H 0.60-1.30 MG/DL Estimat Glomerular Filtration Rate 37 BUN/Creatinine Ratio 6 Glucose Level 100 70-105 MG/DL Calcium Level 9.5 8.5-10.1 MG/DL Corrected Calcium 9.5 8.5-10.1 MG/DL Total Bilirubin 0.3 0.1-1.0 MG/DL Aspartate Amino Transf (AST/SGOT) 22 5-34 U/L Alanine Aminotransferase (ALT/SGPT) 20 0-55 U/L Alkaline Phosphatase 88 40-136 U/L Troponin I 0.034 H < 0.028 <0.028 NG/ML B-Type Natriuretic Peptide 66.1 <100.0 PG/ML Total Protein 7.7 6.4-8.2 GM/DL Albumin 4.0 3.2-4.5 GM/DL Lactic Acid Level 2.45 *H 0.50-2.00 MMOL/L My Orders Orders - SAMMI MERIDA Cbc With Automated Diff (08/03/18 20:51) Comprehensive Metabolic Panel (08/03/18 20:51) Blood Culture (08/03/18 20:51) Sputum Culture (08/03/18 20:51) Urinalysis (08/03/18 20:51) Urine Culture (08/03/18 20:51) Protime With Inr (08/03/18:51) Partial Thromboplastin Time (08/03/18 20:51) Chest 1 View, Ap/Pa Only (08/03/18 20:51) Ed Iv/Invasive Line Start (08/03/18 20:51) Ed Iv/Invasive Line Start (08/03/18 20:51) Ekg Tracing (08/03/18:) Troponin I (08/03/18 20:51) Vital Signs Adult Sepsis Patie Q15M (08/03/18 20:51) O2 (08/03/18 20:51) Remove Rings In Anticipation O (08/03/18 20:51) Lactic Acid Analyzer (08/03/18 20:51) Ns Iv 1000 Ml (Sodium Chloride 0.9%) (08/03/18 20:51) Cefepime Injection (Maxipime Injection) (08/03/18 21:00) Ed Iv/Invasive Line Start (08/03/18 20:51) Ns Iv 500 Ml (Sodium Chloride 0.9%) (08/03/18 20:51) Ns Iv 1000 Ml (Sodium Chloride 0.9%) (08/03/18 20:51) Ct Head/Cervical Spine Wo (08/03/18 20:51) BNP (08/03/18 20:51) Manual Differential (08/03/18 20:45) Hydrocodone/Apap 5/325 Tablet (Lortab 5 (08/03/18 22:15) Troponin I (08/03/18 23:03) Ed Iv/Invasive Line Start (08/03/18 23:25) Ns Iv 1000 Ml (Sodium Chloride 0.9%) (08/03/18 23:25) Medications Given in ED Current Medications Medications Dose Ordered Sig/Iván Route Start Time Stop Time Status Last Admin Dose Admin Acetaminophen/ Hydrocodone Bitart 1 tab ONCE ONCE PO 08/03/18 22:15 08/03/18 22:16 DC 08/03/18 22:16 1 TAB Cefepime HCl 1000 mg/Sterile Water 10 ml @ 200 mls/hr ONCE ONCE IV 08/03/18 21:00 08/03/18 21:02 DC 08/03/18 21:25 200 MLS/HR Sodium Chloride 500 ml @ 0 mls/hr Q0M ONCE IV 08/03/18 20:51 08/03/18 20:57 DC 08/03/18 21:25 0 MLS/HR Vital Signs/I&O 08/03/18 08/03/18 08/03/18 20:40 21:17 21:17 Temp 97.2 97.8 Pulse 71 71 Resp 18 14 B/P (MAP) 86/47 (60) 91/80 Pulse Ox 98 98 98 O2 Delivery Room Air Room Air Room Air Progress Progress Note #1: Time: 21:03 Progress Note Possible vasovagal syncope on the toilet however with his history for the last week or 2 of intermittent diarrhea and he could have a viral or bacterial colitis. His blood pressures persistently low at 88/46 so 30 mL/kg based on an adjusted ideal body weight of 272 pounds has been ordered, 2500 cc. Cefepime was selected for possible GI coverage. No respiratory symptoms. Stent done to the PDA at [facility] by Dr. Gardner in February 2015. History of stent 2007 and 2012. Progress Note #2: Time: 22:15 Progress Note Cervical collar cleared by radiographic evidence. [place] for chronic back pain given. Progress Note #3: Time: 23:06 Progress Note Patient is looking much better. His heart rate is in the 70s and his blood press ure is 1 teens systolic. His repeat troponin was okay we'll let him go home. I do not think he needs antibiotics after 4 days of diarrhea and he has no acute abdominal pain. Follow-up with Dr. Gonzalez outpatient next week. We offered him to stay in the hospital for increase fluids and monitoring of his acute kidney injury but the patient is adamant he does not want to stay in the hospital area Initial ECG Impression Date: Aug 03, 2018 Initial ECG Impression Time: 20:48 Initial ECG Rate: 70 Initial ECG Rhythm: Normal Sinus Initial ECG Intervals: Normal Initial ECG Impression: Normal Comment No ST elevation or depression. Diagnostic Imaging Diagonstic Imaging: Xray Plain Films/CT/US/NM/MRI: chest (1v) Comments NAME: KALI RAVI [facility] REC#: [id number] PT STATUS: REG ER : 1970 PHYSICIAN: SAMMI MERIDA MD ADMIT DATE: 08/03/18/ER Signed Date of Exam:08/03/18 CHEST 1 VIEW, AP/PA ONLY Patient History: Syncope, fall, head injury. Technique: Frontal view of the chest. Comparison: 08/21/2017. FINDINGS: The lung volumes are normal. No focal consolidation is seen. No large pleural effusion or pneumothorax is seen. The cardiomediastinal silhouette is normal in size and contour given technique. No acute osseous abnormality is seen. IMPRESSION: No acute pulmonary abnormality seen. Dictated by: Dictated on workstation # [id number] Dict: 08/03/182147 Trans: 08/03/182215 LOCATED WITHIN [facility] [id number] Interpreted by: MILAGRO PATEL MD Electronically signed by: MILAGRO PATEL MD 08/03/182215 Reviewed: Reviewed by Me Diagonstic Imaging: CT (non contrast) Plain Films/CT/US/NM/MRI: c-spine, head Comments NAME: KALI RAVI [facility] REC#: [id number] PT STATUS: REG ER : 1970 PHYSICIAN: SAMMI MERIDA MD ADMIT DATE: 08/03/18/ER Draft Date of Exam:08/03/18 CT HEAD/CERVICAL SPINE WO PROCEDURE: CT head and CT cervical spine without contrast. TECHNIQUE: Multiple contiguous axial images were obtained through the brain and cervical spine without the use of intravenous contrast. Sagittal and coronal reformations through the cervical spine were then performed. Auto Exposure Controls were utilized during the CT exam to meet ALARA standards for radiation dose reduction. INDICATION: Syncope, fall forward with head injury. COMPARISON: Cervical spine CT from 01/15/2018. FINDINGS: CT head: The ventricles and cortical sulci are age-appropriate. There is no midline shift or mass effect. No acute intracranial hemorrhage is seen. There is no CT evidence of acute territorial ischemia. No calvarium fracture is seen. There is mild subcutaneous edema over the frontal scalp. There is complete opacification of the right maxillary sinus. A large mucous retention cyst or polyp is seen in the left maxillary sinus. CT cervical spine: There is significant streak artifact particularly in the lower cervical spine. There are postsurgical changes of prior anterior fusion from C5-C7. No hardware complication is seen on these images. No acute fracture is seen. Alignment demonstrates straightening of the lordosis but no spondylolisthesis. No acute soft tissue abnormality is seen. IMPRESSION: 1. No acute intracranial hemorrhage or CT evidence of acute territorial ischemia. 2. Mild frontal soft tissue edema with no calvarium fracture seen. 3. Right maxillary sinusitis. 4. Postsurgical changes in the cervical spine with no acute fracture seen. Dictated on workstation # [id number] Dict: 08/03/182150 Trans: 08/03/182157 LOCATED [facility] [id number] Interpreted by: MILAGRO PATEL MD Electronically signed by: Reviewed: Reviewed by Me Consults : Consulting Physician: ANDRE RAVI MD FACP [facility] CCDS Consults Notes Discussed the case lab EKG and findings and Dr. Ravi agrees that it is likely the patient has hypotension secondary to volume depletion from his gastroenteritis/colitis and if we can restore his blood pressure and show a static or improvement in his troponin in 4 hours and he'll be okay letting him go home. He should follow-up X week with cardiology and hold all his blood pressure medicines until that time. Departure Impression Primary Impression: Syncope Qualified Codes: R55 - Syncope and collapse Additional Impressions: Hypovolemia Gastroenteritis and colitis, viral Dehydration Acute kidney injury Disposition: HOME, SELF-CARE Condition: Improved Departure-Patient Inst. Decision time for Depature: 23:40 Referrals: ROB RAMIREZ MD (PCP/Family) Primary Care Physician LADAN GONZALEZ MD Patient Instructions: Syncope (Fainting) (DC), Viral Gastroenteritis Add. Discharge Instructions: I believe you have gastroenteritis and colitis and you have lost so much fluids as this caused your blood pressure to be low which resulted new passing out. This also resulted in your having a small kidney injury which may resolve if you get enough fluids in. You need to follow-up next week with your primary care doctor for reevaluation. You should also follow up next week with Dr. Gonzalez. Do not resume your blood pressure medicines until you see Dr. Gonzalez or your primary care doctor restarts them. Drink lots of fluids and avoid caffeine. If your diarrhea last for more than 10 days then you should go to your primary care doctor for reevaluation. All discharge instructions reviewed with patient and/or family. Voiced understanding. SAMMI MERIDA Aug 03, 2018 21:04
[2018-08-03 21:07] LABS: PROTHROMBIN TIME PATIENT 13.2 SEC (12.2-14.7)
[2018-08-03 21:14] LABS: BILIRUBIN,TOTAL 0.3 MG/DL (0.1-1.0); CALCIUM 9.5 MG/DL (8.5-10.1); CREATININE SERUM 2.32 MG/DL (0.60-1.30); POTASSIUM 3.4 MMOL/L (3.6-5.0); TOTAL PROTEIN 7.7 GM/DL (6.4-8.2)
[2018-08-03 21:16] LABS: BAND NEUTROPHILS 2 %; BASOPHILS % (MANUAL) 0 %; EOSINOPHILS % (MANUAL) 0 %; LYMPHOCYTES % (MANUAL) 11 %; MONOCYTES % (MANUAL) 7 %; NEUTROPHILS % (MANUAL) 76 %; RBC MORPH NORMAL; REACTIVE LYMPHOCYTES 4 %
--- NOTE | 2018-08-03 21:49 | Diagnostic Imaging Report ---
Patient History: Syncope, fall, head injury. Technique: Frontal view of the chest. Comparison: 08/21/2017. FINDINGS: The lung volumes are normal. No focal consolidation is seen. No large pleural effusion or pneumothorax is seen. The cardiomediastinal silhouette is normal in size and contour given technique. No acute osseous abnormality is seen. IMPRESSION: No acute pulmonary abnormality seen. Dictated by: Dictated on workstation # [id number]
--- NOTE | 2018-08-03 21:59 | Diagnostic Imaging Report ---
PROCEDURE: CT head and CT cervical spine without contrast. TECHNIQUE: Multiple contiguous axial images were obtained through the brain and cervical spine without the use of intravenous contrast. Sagittal and coronal reformations through the cervical spine were then performed. Auto Exposure Controls were utilized during the CT exam to meet ALARA standards for radiation dose reduction. INDICATION: Syncope, fall forward with head injury. COMPARISON: Cervical spine CT from 01/15/2018. FINDINGS: CT head: The ventricles and cortical sulci are age-appropriate. There is no midline shift or mass effect. No acute intracranial hemorrhage is seen. There is no CT evidence of acute territorial ischemia. No calvarium fracture is seen. There is mild subcutaneous edema over the frontal scalp. There is complete opacification of the right maxillary sinus. A large mucous retention cyst or polyp is seen in the left maxillary sinus. CT cervical spine: There is significant streak artifact particularly in the lower cervical spine. There are postsurgical changes of prior anterior fusion from C5-C7. No hardware complication is seen on these images. No acute fracture is seen. Alignment demonstrates straightening of the lordosis but no spondylolisthesis. No acute soft tissue abnormality is seen. IMPRESSION: 1. No acute intracranial hemorrhage or CT evidence of acute territorial ischemia. 2. Mild frontal soft tissue edema with no calvarium fracture seen. 3. Right maxillary sinusitis. 4. Postsurgical changes in the cervical spine with no acute fracture seen. Dictated by: Dictated on workstation # [id number]
[2018-08-03] MEDS ORDERED: HYDROcodone/APAP 5 MG/325 MG (LORTAB) TAB PO ONE (22:15)
--- NOTE | 2018-08-03 22:18 | NUR ---
c-collar removed per dr swift.
[2018-08-04] VITALS: BP 128/61
== END 2018-08-04 | disposition home or self-care (01) ==
LOC: EDUNIT# 20:37 → ER 20:39
DX: R55 Syncope and collapse (principal); E86.0 Dehydration; E86.1 Hypovolemia; A08.4 Viral intestinal infection, unspecified; N17.9 Acute kidney failure, unspecified; I25.10 Atherosclerotic heart disease of native coronary artery without angina pectoris; I25.2 Old myocardial infarction; E78.00 Pure hypercholesterolemia, unspecified; I10 Essential (primary) hypertension; G62.9 Polyneuropathy, unspecified; K21.9 Gastro-esophageal reflux disease without esophagitis; E66.01 Morbid (severe) obesity due to excess calories; M10.9 Gout, unspecified; F17.210 Nicotine dependence, cigarettes, uncomplicated; Z87.19 Personal history of other diseases of the digestive system; Z95.5 Presence of coronary angioplasty implant and graft; Z90.49 Acquired absence of other specified parts of digestive tract; Z82.49 Family history of ischemic heart disease and other diseases of the circulatory system; Z68.43 Body mass index [BMI] 50.0-59.9, adult; Z98.890 Other specified postprocedural states
CPT/HCPCS: 36415; 70450; 71045; 72125; 80053; 83605; 83880; 84484; 85007; 85027; 85610; 85730; 87040; 93005

== ENCOUNTER 2019-01-30 10:46 | Outpatient (RCR) | payer MEDICARE, MEDICAID ==
[~2019-01-30 10:46] MED LIST changes: +DICY20TA10; +ONDA8TAB13; +PANT40TA3
== END 2019-01-30 12:56 | disposition home or self-care (01) ==
PROVIDERS: ATTEND Internal Medicine
DX: M54.16 Radiculopathy, lumbar region (principal); M62.81 Muscle weakness (generalized)

== ENCOUNTER 2019-04-26 09:30 | Outpatient (RCR) | payer MEDICAID, MEDICARE ==
[~2019-04-26 09:30] MED LIST changes: -HYDR-3816 PO; -IBUP-2055 PO; +IBUP-2473 PO; -INDO25CA15 PO; +INDO25CA99 PO; -MORP-33 PO; +MORP-68 PO
== END 2019-07-09 | disposition home or self-care (01) ==
PROVIDERS: ATTEND Internal Medicine
DX: M54.2 Cervicalgia (principal); M54.5 Low back pain

== ENCOUNTER 2021-03-09 19:48 | Inpatient (IN) | payer MEDICARE ==
[~2021-03-09] VITALS: Ht 185.4 cm; Wt 203.5 kg
[~2021-03-09 19:48] MED LIST changes: +AMLO-251 PO; -AMLO10TA7 PO; +ASPI-1238 PO; -ASPI-983 PO; +CLIN-144 PO; -CLIN300C11 PO; +CLN.1T PO; -CLON0.1T PO; +DICY20TA; -DICY20TA10; -ISOS30TA3 PO; +ISOS30TA82 PO; -LISI-552 PO; -LISI-556 PO; +LISI20TA26 PO; +LISI5TAB20 PO; -PANT40TA3; -PANT40TA3 PO; +PANT40TA52; +PANT40TA52 PO
[2021-03-09] MEDS ORDERED: cefTRIAXone 1 GM PRE-MIX 50 ML IV ONE ×2 (20:15→23:01)
[2021-03-09] MEDS ORDERED: NS IV 500 ML 500 ML IV ONE (20:15)
[2021-03-09] MEDS ORDERED: NS IV 1000 ML 1,000 ML IV SCH ×2 (20:15)
[2021-03-09] MEDS ORDERED: AZITHROMYCIN INJECTION 500 MG in NS (IVPB) 250 ML IV ONE (20:15)
--- NOTE | 2021-03-09 20:20 | ED Respiratory ---
General Stated Complaint: FACIAL SWELLING/LETHARGIC Source: patient Exam Limitations: no limitations History of Present Illness Date Seen by Provider: Mar 09, 2021 Time Seen by Provider: 19:57 Initial Comments Patient ER by EMS from [facility] with chief complaint of lethargy and facial swelling. He said the swelling started in the last for 5 days and has been taking Benadryl for it. Typically he takes baclofen, hydrocodone for his chronic back pain. Dr. Schuster did a surgery several years ago. He follows with Dr. Espinosa for primary care and was there to get refills on medications. He says Dr. Espinosa looked at his eyes but did not make any recommendations or put him on any drops or antibiotics. He is not had any fevers chills or cough. He denies feeling short of breath but he says is been very lethargic had a difficult time getting into a vehicle. He found a friend of a friend to give him a ride there but they would not bring him home. EMS noted his oxygen saturation to be 85-87% on room air. He does not use supplemental oxygen at baseline he denies a history of COPD or asthma. He smokes about half pack cigarettes a day. He is not having any chest pain. He rates his pain in his back as chronic, 4 out of 10. He has not had a hydrocodone he states since last week. He had 1 dose of [employer]ath COVID-19 vaccination. No influenza vaccine. He does not wear BiPAP at night. He lives with his [id number]. 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 His pants are soaked in urine but he denies recalling that he lost control of his bowel or bladder. He states normally he is able to walk short distances. Patient had a CT angiogram in 2016 which did not reveal any aortic dissection or aneurysm present. He had a non-ST elevation IA in 2016 and a stent [address] Dr. Gardner, [facility] in 2016. History of hypertension, hyperlipidemia, hypertriglyceridemia, and morbid obesity and nonadherence to therapy. He also has a history of GERD. Allergies and Home Medications Allergies Coded Allergies: No Known Drug Allergies (Verified , 11/02/07) Patient Home Medication List Home Medication List Reviewed: Yes Acetaminophen (Tylenol) 325 Mg Tablet, 650 MG PO Q6H PRN for PAIN-MILD, (Reported) Entered as Reported by: KYLEE SOL on 05/23/18 1218 Amlodipine Besylate (Amlodipine Besylate) 10 Mg Tablet, 10 MG PO DAILY, (Reported) Entered as Reported by: KYLEE SOL on 03/22/18 130 Baclofen (Baclofen) 20 Mg Tablet, 20 MG PO QID, (Reported) Entered as Reported by: GAGANDEEP CARDENAS on 03/13/15 2234 Calcium Polycarbophil (Fiber Laxative) 625 Mg Tablet, 1,250 MG PO QID, (Reported) Entered as Reported by: KYLEE SOL on 05/23/18 121 Dicyclomine HCl (Dicyclomine HCl) 20 Mg Tablet, (Reported) Entered as Reported by: LAY FERNANDEZ on 08/03/182048 Docusate Sodium (Colace) 100 Mg Capsule, 100 MG PO Q12H PRN for CONSTIPATION-1ST LINE, (Reported) Entered as Reported by: KYLEE SOL on 05/23/18 121 Gabapentin (Gabapentin) 600 Mg Tablet, 600 MG PO QID, (Reported) Entered as Reported by: MELINDA LAINEZ on 03/07/15 0436 Hydrocodone Bit/Acetaminophen (HYDROcodone/APAP 7.5/325 TAB) 1 Each Tablet, 1 TAB PO Q4H PRN for PAIN-MILD TO MODERATE, (Reported) Entered as Reported by: KYLEE SOL on 05/23/18 121 Lisinopril (Lisinopril) 5 Mg Tablet, 5 MG PO DAILY, (Reported) Entered as Reported by: KYLEE SOL on 03/22/18 130 Ondansetron (Ondansetron Odt) 8 Mg Tab.lillian, (Reported) Entered as Reported by: LAY FERNANDEZ on 08/03/182048 Pantoprazole Sodium (Pantoprazole Sodium) 40 Mg Tablet.dr, (Reported) Entered as Reported by: LAY FERNANDEZ on 08/03/182048 Polyethylene Glycol 3350 (Miralax) 119 Gm Powder, 17 GM PO Q8H PRN for CONSTIPATION-2ND LINE, (Reported) Entered as Reported by: KYLEE SOL on 05/23/18 121 Ticagrelor (Brilinta) 90 Mg Tablet, 90 MG PO BID, (Reported) Entered as Reported by: KYLEE SOL on 03/12/18 1329 Zolpidem Tartrate (Zolpidem Tartrate) 10 Mg Tablet, 10 MG PO HS PRN for SLEEP, (Reported) Entered as Reported by: KYLEE SOL on 03/12/18 1329 Review of Systems Review of Systems Constitutional: No chills, No diaphoresis EENTM: No ear discharge, No ear pain Respiratory: No cough, No hemoptysis; short of breath; No wheezing Cardiovascular: No chest pain, No palpitations Gastrointestinal: No abdominal pain, No constipation, No diarrhea, No loss of appetite, No nausea, No vomiting Genitourinary: No discharge, No dysuria; incontinence Musculoskeletal: back pain (Chronic); No joint pain All Other Systems Reviewed Negative Unless Noted: Yes Past Jbfyhti-Ambagc-Vosbud Hx Patient Social History Tobacco Use?: Yes Tobacco type used: Cigarettes Use of E-Cig and/or Vaping dev: No Substance use?: No Immunizations Up To Date Tetanus Booster (TDap): More than 5yrs PED Vaccines UTD: No Seasonal Allergies Seasonal Allergies: Yes Past Medical History Surgeries: Yes Appendectomy, Cardiac, Coronary Stent, Ear Surgery, Orthopedic Respiratory: No Currently Using CPAP: No Currently Using BIPAP: No Cardiac: Yes (STENT IN and 2 stents at [facility] 03/07/15) Coronary Artery Disease, Heart Attack, High Cholesterol, Hypertension Neurological: Yes (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/NUMBNESS IN LEGS) Neuropathy Reproductive Disorders: No Sexually Transmitted Disease: No HIV/AIDS: No Genitourinary: No Gastrointestinal: Yes Gastroesophageal Reflux, Chronic Constipation Musculoskeletal: Yes Degenerate Disk Disease, Chronic Back Pain, Gout Endocrine: Yes (MORBID OBESITY) HEENT: No Loss of Vision: Denies Hearing Impairment: Denies Cancer: No Psychosocial: No Integumentary: No Blood Disorders: No Adverse Reaction/Blood Tranf: No Family Medical History Cardiovascular disease 19 FATHER (BYPASS) Hypercholesterolemia 19 FATHER Hypertension 19 FATHER Physical Exam Vital Signs - First Documented 03/09/21 19:49 Temp 36.9 Pulse 86 Resp 28 B/P (MAP) 96/82 (87) Pulse Ox 87 O2 Delivery Room Air O2 Flow Rate 3.00 Capillary Refill : Height: 6'3.00" Weight: 401lbs. 0.0oz. 181.395996pw; 54.6 BMI Method:Actual General Appearance: moderate distress, obese Eyes: Bilateral Eye Normal Inspection, Bilateral Eye PERRL, Bilateral Eye EOMI HEENT: PERRL/EOMI (Bilateral preorbital tissue swelling, erythema without fluctuance and some mattering of the eyelids.), TMs normal; No pharynx normal (Dry, crusty) Neck: non-tender, full range of motion, supple, normal inspection Respiratory: chest non-tender, lungs clear, respiratory distress (Oxygen saturations 86% on room air.), decreased breath sounds Cardiovascular: normal peripheral pulses, regular rate, rhythm Gastrointestinal: normal bowel sounds, non tender, soft, no organomegaly Extremities: other (Gaulded under his pannus and anterior thighs.) Neurologic/Psychiatric: 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 tested, alert, normal mood/affect, oriented x 3, other (GCS 14 mildly somnolent) Skin: warm/dry, other (Gaulded skin with several small 1 cm shallow ulcers and scabs on his legs and lower abdomen) Focused Exam Sepsis Stage: Sepsis Possible Source: Skin/Soft Tissue Lactate Level 03/09/21 20:10: Lactic Acid Level 1.25 Time of Focused Exam: 21:25 Respiratory: Lungs Clear, Normal Breath Sounds, Decreased Breath Sounds Cardiovascular: Regular Rate, Rhythm, Other (Bilateral pedal) Capillary Refill: Less Than 3 Seconds Peripheral Pulses: 2+ Radial Pulses (R), 2+ Radial Pulses (L) Skin: warm/dry, ulcerations, other (Erythema) Lactic Acid Level Laboratory Tests Test 03/09/21 20:10 Lactic Acid Level 1.25 MMOL/L (0.50-2.00) Within 3hrs of presentation: Admin fluids, Admin 30ml/kg IBW due to BMI>30, Admin ABX, Blood cultures prior to ABX's, Focus exam, Lactate level Procedures/Interventions Lumen: triple Central Line Procedure: betadine prep (Chlorhexidine), sterile drapes applied, sterile dressing applied Position: internal jugular (R) Anesthesia: Propofol Complications: none Post Position: sutured, good blood return, position confirmed w/ CXR Risks, benefits and alternatives were discussed with the patient and the patient consented to the procedure. The patient was positioned in the usual format and using the usual sterile garments and drapes the patient was dressed out. The skin was thoroughly cleaned with the supplied chlorhexidine prep. After the prep had dried a sterile drape was placed. The 15 cm 7 Welsh triple-lumen catheter was flushed with sterile saline. We used ultrasound guidance to pass the introducer needle into the right internal jugular without difficulty. A guidewire was placed easily without difficulty. No ectopy was seen on the monitor. The supplied 11 blade scalpel was used to make a 2 mm incision at the inferior portion of the introducer needle. The introducer needle was replaced with the dilator. The dilator was taken out and the patient had the central lumen of the triple lumen catheter threaded over the guidewire and placed at 14 cm. The guidewire was removed and the triple-lumen catheter was stitched in place using the supplied braided stitch at 2 different points. The catheter withdrew blood and flushed easily. A sterile dressing was placed over the c atheter. The patient tolerated the procedure well. A chest x-ray was obtained that demonstrated no pneumothorax and a new interval central catheter over the shadow of the right internal jugular down the superior vena cava and terminating just proximal to the right atria. Reason for Intubation: GCS less than 8, hypoxemia, hypercarbia Date of ETT Placement: Mar 09, 2021 Time of ETT Placement: 21:41 Intubation Method: orotracheal Tube Size: 8.0 Medications: Etomidate (40 mg), Rocuronium (100 mg) Positive End Tide CO2: Yes Breath Sounds after Intubation: bilateral-equal Intubation Complications: oral-unsuccessful attempt (X3), O2 saturation decreased (78 percent) Post Intubation Xray: Yes ET tube 2 to 3 cm above jonnie Patient was incredibly difficult to intubate using Willie vision laryngoscope. W itnessed a lot of redundant scar tissue from previous tracheostomy site and could not visualize the vocal cords. Used a 4 Ike and could not get past the tissue. Tried advancing a bougie and running the tube over the bougie twice with no tracheal intubation. Left the bougie in place and made a third attempt unsuccessfully. Anesthesia was in house and came down using a [place] video laryngoscope was able to place the ET tube past the vocal cords on first attempt. Four total attempts. Oxygen saturations 91% on fourth attempt. NPA/OPA were used. Towel rolls were used. Progress/Results/Core Measures Suspected Sepsis SIRS Temperature: Pulse: Respiratory Rate: Laboratory Tests 03/09/21 20:10: White Blood Count 9.2 Blood Pressure / Mean: 03/09/21 20:10: Lactic Acid Level 1.25 Laboratory Tests 03/09/21 20:10: Creatinine 0.77, INR Comment 1.0, Platelet Count 219, Total Bilirubin 0.7 Results/Orders Lab Results Laboratory Tests Test 03/09/21 20:10 03/09/21 20:17 Range/Units White Blood Count 9.2 4.3-11.0 10^3/uL Red Blood Count 5.71 H 4.30-5.52 10^6/uL Hemoglobin 17.5 13.3-17.7 g/dL Hematocrit 57 H 40-54 % Mean Corpuscular Volume 100 H 80-99 fL Mean Corpuscular Hemoglobin 31 25-34 pg Mean Corpuscular Hemoglobin Concent 31 L 32-36 g/dL Red Cell Distribution Width 14.5 10.0-14.5 % Platelet Count 219 130-400 10^3/uL Mean Platelet Volume 10.4 9.0-12.2 fL Immature Granulocyte % (Auto) 0 % Neutrophils (%) (Auto) 70 42-75 % Lymphocytes (%) (Auto) 18 12-44 % Monocytes (%) (Auto) 9 0-12 % Eosinophils (%) (Auto) 2 0-10 % Basophils (%) (Auto) 0 0-10 % Neutrophils # (Auto) 6.5 1.8-7.8 10^3/uL Lymphocytes # (Auto) 1.7 1.0-4.0 10^3/uL Monocytes # (Auto) 0.8 0.0-1.0 10^3/uL Eosinophils # (Auto) 0.2 0.0-0.3 10^3/uL Basophils # (Auto) 0.0 0.0-0.1 10^3/uL Immature Granulocyte # (Auto) 0.0 0.0-0.1 10^3/uL Prothrombin Time 13.9 12.2-14.7 SEC INR Comment 1.0 0.8-1.4 Activated Partial Thromboplast Time 22 L 24-35 SEC Sodium Level 144 135-145 MMOL/L Potassium Level 5.3 H 3.6-5.0 MMOL/L Chloride Level 106 98-107 MMOL/L Carbon Dioxide Level 29 21-32 MMOL/L Anion Gap 9 5-14 MMOL/L Blood Urea Nitrogen 7 7-18 MG/DL Creatinine 0.77 0.60-1.30 MG/DL Estimat Glomerular Filtration Rate 110 BUN/Creatinine Ratio 9 Glucose Level 82 70-105 MG/DL Lactic Acid Level 1.25 0.50-2.00 MMOL/L Calcium Level 7.7 L 8.5-10.1 MG/DL Corrected Calcium 8.4 L 8.5-10.1 MG/DL Total Bilirubin 0.7 0.1-1.0 MG/DL Aspartate Amino Transf (AST/SGOT) 74 H 5-34 U/L Alanine Aminotransferase (ALT/SGPT) 41 0-55 U/L Alkaline Phosphatase 81 40-136 U/L Troponin I 0.096 H <0.028 NG/ML C-Reactive Protein High Sensitivity 2.99 H 0.00-0.50 MG/DL B-Type Natriuretic Peptide 668.7 H <100.0 PG/ML Total Protein 7.0 6.4-8.2 GM/DL Albumin 3.1 L 3.2-4.5 GM/DL Serum Alcohol < 10 <10 MG/DL Influenza Type A (RT-PCR) Not Detected Not Detecte Influenza Type B (RT-PCR) Not Detected Not Detecte SARS-CoV-2 RNA (RT-PCR) Detected H Not Detecte Blood Gas Puncture Site RIGHT RADIAL Blood Gas Patient Temperature 36.9 Arterial Blood pH 7.33 *L 7.37-7.43 Arterial Blood Partial Pressure CO2 70 H 35-45 MMHG Arterial Blood Partial Pressure O2 66 L 79-93 MMHG Arterial Blood HCO3 36 H 23-27 MMOL/L Arterial Blood Total CO2 37.8 H 21.0-31.0 MMOL/L Arterial Blood Oxygen Saturation 93 L 94-100 % Arterial Blood Base Excess 9.6 H -2.5-2.5 MMOL/L Ignacio Test YES-POS Blood Gas Ventilator Setting NO Blood Gas Inspired Oxygen 3L My Orders Orders - SAMMI MERIDA Cbc With Automated Diff (03/09/21 20:10) Comprehensive Metabolic Panel (03/09/21 20:10) Blood Culture (03/09/21 20:10) Sputum Culture (03/09/21 20:10) Urinalysis (03/09/21 20:10) Urine Culture (03/09/21 20:10) Protime With Inr (03/09/21 20:10) Partial Thromboplastin Time (03/09/21 20:10) Chest 1 View, Ap/Pa Only (03/09/21 20:10) Ed Iv/Invasive Line Start (03/09/21 20:10) Ed Iv/Invasive Line Start (03/09/21 20:10) Vital Signs Adult Sepsis Patie Q15M (03/09/21 20:10) O2 (03/09/21 20:10) Remove Rings In Anticipation O (03/09/21 20:10) Lactic Acid Analyzer (03/09/21 20:10) Influenza A And B By Pcr (03/09/21 20:10) Ns Iv 1000 Ml (Sodium Chloride 0.9%) (03/09/21 20:15) Ceftriaxone 1 Gm Pre-Mix (Rocephin 1 Gm (03/09/21 20:15) Azithromycin Injection (Zithromax Inject (03/09/21 20:15) Covid 19 Inhouse Test (03/09/21 20:10) Ed Iv/Invasive Line Start (03/09/21 20:10) Ns Iv 1000 Ml (Sodium Chloride 0.9%) (03/09/21 20:15) Drug Screen Stat (Urine) (03/09/21 20:10) Alcohol (03/09/21 20:10) Bnp Smith (03/09/21 20:14) Arterial Blood Gas (03/09/21 20:17) Continuous Ekg Monitoring (03/09/21 20:24) Ekg Tracing (03/09/21 20:24) Troponin I Smith (03/09/21 20:10) Methylprednisolone Sod Succ (Solu-Medrol (03/09/21 20:45) Aspirin Chewable Tablet (Baby Aspirin Ch (03/09/21 21:15) Furosemide Injection (Lasix Injection) (03/09/21 21:15) Catheter(Urinary) Insert & Ass 03,15 (03/09/21 21:01) Hs C Reactive Protein (03/09/21 21:02) Medications Given in ED Current Medications Medications Dose Ordered Sig/Iván Route Start Time Stop Time Status Last Admin Dose Admin Furosemide 80 mg ONCE ONCE IVP 03/09/21 21:15 03/09/21 21:16 DC 03/09/21 22:55 80 MG Methylprednisolone Sodium Succinate 125 mg ONCE ONCE IVP 03/09/21 20:45 03/09/21 20:46 DC 03/09/21 22:54 125 MG Vital Signs/I&O 03/09/21 03/09/21 03/09/21 19:49 19:49 19:55 Temp 36.9 Pulse 86 Resp 28 B/P (MAP) 96/82 (87) Pulse Ox 87 O2 Delivery Room Air Nasal Cannula Nasal Cannula O2 Flow Rate 3.00 3.00 Capillary Refill : Progress Note #1: Time: 20:20 Progress Note Pneumonia, obesity hypoventilation syndrome, opiate overdose, likely preorbital cellulitis and conjunctivitis bilateral with a? Of sepsis. We will also swab him for Covid and influenza since he states he spent the last 3 to 4 days in bed not feeling well with cold-like symptoms. 2-1/2 L based on adjusted ideal body weight is greater than 20 mL/kg. EMS remarks his blood pressure was high at 160/100 however our blood pressure cuff on his right arm is only pulling about 100 systolic. We will get a BNP, chest x-ray EKG and troponin. Oxygen 4 L by nasal cannula. ABG. Progress Note #2: Time: 21:04 Progress Note We repositioned his cuff and his blood pressure is actually 190s over 110. BNP is significantly elevated over his baseline around 60. He looks like is having may be little elevation of troponin perhaps because of his hypoxemia and hypercapnia. Put on Vapotherm 30 L/min and 50% FiO2 and were keeping his oxygen sats in the mid 90s. We will give him 80 of Lasix IV put a Haddad catheter and put him in the ICU for heart failure exacerbation. Trend troponins.. ECG Initial ECG Impression Date: Mar 09, 2021 Initial ECG Impression Time: 20:13 Initial ECG Rate: 79 Initial ECG Rhythm: Normal Sinus Initial ECG Intervals: Normal Initial ECG Impression: Normal Comment Normal sinus rhythm without clinically relevant ST elevation or depression. Diagnostic Imaging Diagonstic Imaging: Xray Plain Films/CT/US/NM/MRI: chest Reviewed: Reviewed by Me Critical Care Note Critical Care Start Time: 21:35 Stop Time: 22:55 Total Time (minutes) 80 m Progress Patient went unresponsive. Oxygen saturations in the upper 80s on 100% by Vapotherm. Elected to emergently intubate him and put a central line and as he had poor vascular access peripherally. Blood pressure still decent. See intubation and central line note. He has a complicated intubation requiring hel p from anesthesia. He is now oxygenating well and on propofol drip. Departure Communication (Admissions) Time/Spoke to Admitting Phy: 21:[address] Gonzalez she agrees to BiPAP Lasix consult eICU and cardiology. 2300: Updated Dr. Gonzalez as to the deterioration of the patient's status during ER stay. Time/Spoke to Consulting Phy: 21:09 Discussed the case with Dr. Funes, cardiology and he agrees to consult on the case. Discussed case with eICU and agree to consult on the case Impression Primary Impression: COVID-19 Additional Impressions: Acute on chronic respiratory failure with hypoxia and hypercapnia Congestive heart failure (CHF) Qualified Codes: I50.9 - Heart failure, unspecified Facial cellulitis Sepsis Qualified Codes: A41.9 - Sepsis, unspecified organism; R65.20 - Severe sepsis without septic shock; J96.01 - Acute respiratory failure with hypoxia Disposition: ADMITTED INPATIENT Condition: Critical Admissions Decision to Admit Reason: Admit from ER (General) Decision to Admit/Date: Mar 09, 2021 Time/Decision to Admit Time: 21:16 Departure-Patient Inst. Referrals: ROB RAMIREZ MD (PCP) Primary Care Physician [facility] (Family) Primary Care Physician SAMMI MERIDA Mar 09, 2021 20:20
[2021-03-09 20:23] LABS: BASOPHILS % (AUTO) 0 % (0-10); EOSINOPHILS # (AUTO) 0.2 10^3/uL (0.0-0.3); EOSINOPHILS % (AUTO) 2 % (0-10); HEMATOCRIT 57 % (40-54); HEMOGLOBIN 17.5 g/dL (13.3-17.7); LYMPHOCYTES # (AUTO) 1.7 10^3/uL (1.0-4.0); LYMPHOCYTES % (AUTO) 18 % (12-44); MEAN CORPUSCULAR HEMOGLOBIN 31 pg (25-34); MEAN CORPUSCULAR HGB CONC 31 g/dL (32-36); MEAN CORPUSCULAR VOLUME 100 fL (80-99); MEAN PLATELET VOLUME 10.4 fL (9.0-12.2); MONOCYTES # (AUTO) 0.8 10^3/uL (0.0-1.0); MONOCYTES % (AUTO) 9 % (0-12); NEUTROPHILS # (AUTO) 6.5 10^3/uL (1.8-7.8); NEUTROPHILS % (AUTO) 70 % (42-75); PLATELET COUNT 219 10^3/uL (130-400); WHITE BLOOD COUNT 9.2 10^3/uL (4.3-11.0)
[2021-03-09 20:23] LABS: ABG BASE EXCESS 9.6 MMOL/L (-2.5-2.5); ABG OXYGEN SATURATION 93 % (94-100); ABG PCO2 70 MMHG (35-45); ABG PO2 66 MMHG (79-93); ABG TCO2 37.8 MMOL/L (21.0-31.0)
[2021-03-09 20:24] LABS: ABG PH 7.33 (7.37-7.43); ALLENS TEST YES-POS
[2021-03-09 20:25] LABS: INSPIRED O2 3L; PATIENT TEMP 36.9; VENTILATOR NO
[2021-03-09 20:35] LABS: PROTHROMBIN TIME PATIENT 13.9 SEC (12.2-14.7)
[2021-03-09] MEDS ORDERED: methylPREDNISolone 125 MG (Solu-MEDROL) VIAL IVP ONE (20:45)
[2021-03-09 20:46] LABS: ALANINE AMINOTRANSFERASE 41 U/L (0-55); ALBUMIN 3.1 GM/DL (3.2-4.5); ALKALINE PHOSPHATASE 81 U/L (40-136); BILIRUBIN,TOTAL 0.7 MG/DL (0.1-1.0); BUN/CREATININE RATIO 9; CALCIUM 7.7 MG/DL (8.5-10.1); CARBON DIOXIDE 29 MMOL/L (21-32); CHLORIDE 106 MMOL/L (98-107); CREATININE SERUM 0.77 MG/DL (0.60-1.30); GFR ESTIMATED 110; GLUCOSE 82 MG/DL (70-105); POTASSIUM 5.3 MMOL/L (3.6-5.0); SODIUM 144 MMOL/L (135-145)
[2021-03-09] MEDS ORDERED: FUROSEMIDE 40 MG/4 ML INJ (LASIX) IVP ONE (21:15)
[2021-03-09] MEDS ORDERED: ASPIRIN 81 MG CHEW (CHILDREN'S ASA) PO ONE (21:15)
[2021-03-09] MEDS ORDERED: NS 100 ML (IVPB) BAG IV ONE (21:30)
[2021-03-09] MEDS ORDERED: IOHEXOL 350 MG/ML 100 ML (OMNIPAQUE 350) VIAL IV ONE (21:30)
[2021-03-09] MEDS ORDERED: HOLD METFORMIN - RECEIVED CONTRAST 20 ML VIAL IV SCH (21:30)
[2021-03-09] MEDS ORDERED: PROPOFOL DRIP (ICU) 100 ML IV ONE (21:45)
--- NOTE | 2021-03-09 22:28 | Anesthesia-Procedure Note ---
Procedures/Interventions Procedure Start/Stop/Diagnosis Date of Procedure: Mar 09, 2021 Start Time: 22:15 Referring Physician: Art Preprocedural Diagnosis: covid + respiratory distress Brief History Called to ER to assist with difficult intubation. Report received from ER physician that prior to my arrival poor view with direct largynoscopy, Willie Vision, and unable to blind pass with bougie. Pt sedate/unreponsive following induction medications. Positive pressure ventilation with ambu bag, SP02 87%. 80cm OPA, NPA also in place. Pt noted to be morbidly obese with redundant neck tissue, and what appears to be old tracheostomy scar. Assisted with PPV, SP02 maxed at 90%. Gonzalez x 1 attempt, with grade 1 view. 8.0 ETT passed through cords without resistance. +ETCO2. Care assumed by ER staff. Stop Time: 22:20 GUILLERMO DE LA ROSA CRNA Mar 09, 2021 22:28
[2021-03-09 22:40] LABS: BILIRUBIN,URINE NEGATIVE (NEGATIVE); CLARITY,URINE CLEAR; COLOR,URINE YELLOW; GLUCOSE, URINE (UA) NEGATIVE (NEGATIVE); KETONES,URINE NEGATIVE (NEGATIVE); LEUKOCYTE ESTERASE ,URINE NEGATIVE (NEGATIVE); NITRITE,URINE NEGATIVE (NEGATIVE); PH,URINE 6.5 (5-9); PROTEIN,URINE NEGATIVE (NEGATIVE)
[2021-03-09 22:46] LABS: BACTERIA,URINE NEGATIVE /HPF
[2021-03-09 22:51] LABS: AMPHETAMINE SCREEN, URINE NEGATIVE (NEGATIVE); BARBITURATE SCREEN URINE NEGATIVE (NEGATIVE); BENZODIAZEPINES SCREEN URINE NEGATIVE (NEGATIVE); CANNABINOID SCREEN, URINE NEGATIVE (NEGATIVE); COCAINE SCREEN URINE NEGATIVE (NEGATIVE); METHADONE STAT NEGATIVE (NEGATIVE); METHAMPHETAMINE SCREEN URINE S NEGATIVE (NEGATIVE); OPIATE SCREEN URINE NEGATIVE (NEGATIVE); OXYCODONE STAT NEGATIVE (NEGATIVE); PROPOXYPHENE STAT NEGATIVE (NEGATIVE); TRICYCLIC ANTIDEPRESSANTS SCRE NEGATIVE (NEGATIVE)
[2021-03-09] MEDS ORDERED: PROPOFOL DRIP (ICU) 100 ML IV SCH (23:00)
--- NOTE | 2021-03-09 23:06 | Diagnostic Imaging Report ---
INDICATION: Sepsis, Covid. Compared with the exam 08/03/2018 FINDINGS: ET tube is in the upper thoracic trachea. There is a right IJ near the junction of the innominates. The heart is enlarged. An OG catheter goes into the lower thoracic esophagus, beyond that it cannot be defined likely owing to body habitus. Body habitus limits pulmonary evaluation. No focal consolidation, effusion or pneumothorax. IMPRESSION: ET tube in the upper thoracic trachea. OG is in the esophagus at least to the distal 3rd. Right IJ at the upper SVC or right innominate. No pneumothorax. Cardiomegaly. No focal consolidation. Dictated by: Dictated on workstation # [id number]
[2021-03-09] MEDS ORDERED: NOREPINEPHRINE 8 MG/250 ML 250 ML IV SCH (23:15)
[2021-03-09 23:42] VITALS: BP 102/55
[2021-03-09] MEDS ORDERED: ACETAMINOPHEN 650 MG SUPP (TYLENOL) PR PRN (23:45)
[2021-03-09] MEDS ORDERED: CATHETER FLUSH 10 ML SYR IV PRN (23:45)
[2021-03-09] MEDS ORDERED: ONDANSETRON 4 MG/2 ML (SDV) Z0FRAN IV PRN (23:45)
[2021-03-10] VITALS (7 sets, daily range): BP systolic 96–144; BP diastolic 71–82
[2021-03-10] MEDS ORDERED: HYDROcodone/APAP 5 MG/325 MG (LORTAB) TAB PO PRN (00:15)
[2021-03-10] MEDS ORDERED: AZITHROMYCIN INJECTION 500 MG/5 ML VIAL ONE (00:29)
[2021-03-10] MEDS ORDERED: RT-ALBUTEROL HFA 8.5 GM INHALER IH PRN (00:30)
[2021-03-10] MEDS ORDERED: EPINEPHrine 1 MG INJECTION 4 MG in NS (IVPB) 248 ML IV SCH (00:30)
[2021-03-10] MEDS ORDERED: NS (IVPB) 250 ML ONE (00:30)
[2021-03-10] MEDS ORDERED: PIPERACILLIN SODIUM/TAZOBACTAM 4.5 GM in NS (IVPB) 100 ML IV ONE (01:00)
[2021-03-10] MEDS: VASOPRESSIN INJECTION 20 UNIT in NS (IVPB) 100 ML IV SCH ×3 (01:02→21:35)
[2021-03-10] MEDS: NOREPINEPHRINE 8 MG/250 ML 250 ML IV SCH ×4 (01:02→19:27)
[2021-03-10] MEDS: PROPOFOL DRIP (ICU) 100 ML IV SCH ×12 (01:03→22:12)
[2021-03-10] MEDS ORDERED: NS IV 500 ML 500 ML ONE (01:44)
[2021-03-10] MEDS ORDERED: VANCOMYCIN INJECTION 2,000 MG in NS IV 500 ML 500 ML IV ONE (02:00)
[2021-03-10 02:21] LABS: BASOPHILS % (AUTO) 0 % (0-10); EOSINOPHILS % (AUTO) 0 % (0-10); HEMATOCRIT 56 % (40-54); HEMOGLOBIN 16.7 g/dL (13.3-17.7); LYMPHOCYTES # (AUTO) 0.6 10^3/uL (1.0-4.0); LYMPHOCYTES % (AUTO) 5 % (12-44); MEAN CORPUSCULAR HEMOGLOBIN 31 pg (25-34); MEAN CORPUSCULAR HGB CONC 30 g/dL (32-36); MEAN CORPUSCULAR VOLUME 102 fL (80-99); MEAN PLATELET VOLUME 9.3 fL (9.0-12.2); MONOCYTES # (AUTO) 0.4 10^3/uL (0.0-1.0); MONOCYTES % (AUTO) 3 % (0-12); NEUTROPHILS # (AUTO) 11.1 10^3/uL (1.8-7.8); NEUTROPHILS % (AUTO) 92 % (42-75); PLATELET COUNT 227 10^3/uL (130-400); WHITE BLOOD COUNT 12.1 10^3/uL (4.3-11.0)
[2021-03-10 02:29] LABS: ALBUMIN 2.9 GM/DL (3.2-4.5); POTASSIUM 3.7 MMOL/L (3.6-5.0)
[2021-03-10 02:30] LABS: CALCIUM 8.1 MG/DL (8.5-10.1)
[2021-03-10 02:32] LABS: FIBRIN DEGRADATION PRODUCTS 0.86 UG/ML (0.00-0.49); TOTAL PROTEIN 6.1 GM/DL (6.4-8.2)
[2021-03-10 02:33] LABS: BILIRUBIN,TOTAL 0.7 MG/DL (0.1-1.0)
[2021-03-10 02:35] LABS: CREATININE SERUM 0.96 MG/DL (0.60-1.30); PHOSPHORUS 4.1 MG/DL (2.3-4.7)
[2021-03-10 02:38] LABS: MAGNESIUM 1.9 MG/DL (1.6-2.4)
[2021-03-10 02:40] LABS: BAND NEUTROPHILS 5 %; LYMPHOCYTES % (MANUAL) 2 %; MONOCYTES % (MANUAL) 4 %; NEUTROPHILS % (MANUAL) 89 %; RBC MORPH NORMAL
[2021-03-10] MEDS: RT-ALBUTEROL HFA 8.5 GM INHALER IH SCH ×4 (02:48→21:17)
[2021-03-10] MEDS: CATHETER FLUSH 10 ML SYR IV SCH ×3 (03:24→21:06)
[2021-03-10 04:19] LABS: ABG BASE EXCESS 10.5 MMOL/L (-2.5-2.5); ABG OXYGEN SATURATION 89 % (94-100); ABG PCO2 58 MMHG (35-45); ABG PO2 48 MMHG (79-93); ABG TCO2 37.8 MMOL/L (21.0-31.0)
[2021-03-10 04:21] LABS: ALLENS TEST YES-POS; INSPIRED O2 70%; PATIENT TEMP 35.4; VENTILATOR YES
[2021-03-10] MEDS: inSUlin ASPART (NovoLOG) 1 UNIT/0.01 ML (CHARGE PER UNIT) SC SCH ×3 (05:01→18:03)
[2021-03-10] MEDS ORDERED: inSUlin ASPART (NovoLOG) 1 UNIT/0.01 ML (CHARGE PER UNIT) SC SCH (06:00)
--- NOTE | 2021-03-10 07:14 | Diagnostic Imaging Report ---
Reason for examination: COVID 19, acute heart failure. Upright AP portable chest was obtained and compared to yesterday. Cardiac silhouette is enlarged with central pulmonary vascular congestion. Mixed interstitial and alveolar opacities bilaterally could represent edema and/or infiltrate and this is slightly worse than yesterday. A right IJ central line is in place with the tip probably in the lower right IJ. No pneumothorax or large pleural effusion. IMPRESSION: 1. Increased central pulmonary vascular congestion and worsening interstitial and alveolar opacities which could represent progressive edema and/or infectious/inflammatory infiltrate. Cardiomegaly is persistent as well. Dictated by: Dictated on workstation # [id number]
[2021-03-10] MEDS: PIPERACILLIN SODIUM/TAZOBACTAM 4.5 GM in NS (IVPB) 100 ML IV SCH ×2 (07:58→16:28)
[2021-03-10] MEDS: PANTOPRAZOLE 40 MG (PROTONIX) VIAL IV SCH (07:59)
[2021-03-10] MEDS ORDERED: REMDESIVIR INJ 200 MG in NS (IVPB) 210 ML IV ONE (08:00)
[2021-03-10] MEDS ORDERED: ROCURONIUM 10 MG/ML 5 ML SYRINGE IV ONE (08:58)
[2021-03-10] MEDS ORDERED: ETOMIDATE IV SOLN 20 MG/10 ML VIAL IV ONE (08:58)
[2021-03-10] MEDS ORDERED: MIDAZOLAM 5 MG/5 ML (VERSED) VIAL IJ ONE (08:58)
[2021-03-10] MEDS ORDERED: ENOXAPARIN 60 MG/0.6 ML (LOVENOX) SYR SC SCH (09:00)
[2021-03-10] MEDS: MICONAZOLE 2% POWDER (DESENEX AF) 90 GM TOP SCH ×4 (10:02→21:06)
--- NOTE | 2021-03-10 10:04 | Consultation-Cardiology ---
HPI-Cardiology Cardiology Consultation: Date of Consultation 03/10/2021 Date of Admission 03/09/2021 Attending Physician Katarzyna Gonzalez DO Admitting Physician Rob Rodas MD Consulting Physician ROB CANTOR JR, MD HPI: Time Seen by a Provider: 10:03 Chief Complaint: Reason for consultation: Non-ST elevation myocardial infarction. I had the pleasure of seeing Rayray in the intensive care unit at [facility] in [place], [place] this morning. The patient is presently intubated and sedated. Due to his Covid status, I did not enter his room but I did view the patient from the doorway and also spoke with his nurse. I also spoke with the emergency room physician last evening. Apparently, the patient had gone to see his primary provider yesterday to get some refills for his medications. He also reported swelling of his face. It appears as though the primary provider then called EMS who brought the patient to the hospital. He was initially felt to have possible pneumonia with superimposed heart failure. Plans were made to admit the patient to the hospital and then he became unresponsive. Ultimately, he was intubated and sedated. He also had a central line catheter placed in the emergency room. Because of the questionable heart failure and elevated troponin level, a cardiology consultation was requested. The patient normally follows with a chuck wagon cook at [facility] in [place]. Certain portions of this document may have been dictated utilizing voice recognition technology. Inherent to this technology, typographical and grammatical errors may exist. As much as I am diligent to identify and correct these mistakes, some errors may remain in the document. Review of Systems-Cardiology Review of Systems Other comments Not obtainable due to patient's intubation and sedation. All Other Systems Reviewed Negative Unless Noted: Yes [id number] Hx Patient Social History Smoking Status: Current Everyday Smoker 2nd Hand Smoke Exposure: No Tobacco type used: Cigarettes Immunizations Up To Date Tetanus Booster (TDap): More than 5yrs Date of Pneumonia Vaccine: Jul 18, 2017 Date of Influenza Vaccine: Mar 07, 2015 Past Medical History PMH As described under Assessment. Family Medical History Family History: Cardiovascular disease 19 FATHER (BYPASS) Hypercholesterolemia 19 FATHER Hypertension 19 FATHER Allergies and Home Medications Allergies Coded Allergies: No Known Drug Allergies (Verified , 11/02/07) Patient Home Medication List Home Medication List Reviewed: Yes Acetaminophen (Tylenol) 325 Mg Tablet, 650 MG PO Q6H PRN for PAIN-MILD, (Reported) Entered as Reported by: KYLEE SOL on 05/23/18 1218 Amlodipine Besylate (Amlodipine Besylate) 10 Mg Tablet, 10 MG PO DAILY, (Reported) Entered as Reported by: KYLEE SOL on 03/22/18 1305 Baclofen (Baclofen) 20 Mg Tablet, 20 MG PO QID, (Reported) Entered as Reported by: GAGANDEEP CARDENAS on 03/13/15 2234 Calcium Polycarbophil (Fiber Laxative) 625 Mg Tablet, 1,250 MG PO QID, (Reported) Entered as Reported by: KYLEE SOL on 05/23/18 121 Dicyclomine HCl (Dicyclomine HCl) 20 Mg Tablet, (Reported) Entered as Reported by: LAY FERNANDEZ on 08/03/182048 Docusate Sodium (Colace) 100 Mg Capsule, 100 MG PO Q12H PRN for CONSTIPATION-1ST LINE, (Reported) Entered as Reported by: KYLEE SOL on 05/23/18 1218 Gabapentin (Gabapentin) 600 Mg Tablet, 600 MG PO QID, (Reported) Entered as Reported by: MELINDA LAINEZ on 03/07/15 0436 Hydrocodone Bit/Acetaminophen (HYDROcodone/APAP 7.5/325 TAB) 1 Each Tablet, 1 TAB PO Q4H PRN for PAIN-MILD TO MODERATE, (Reported) Entered as Reported by: KYLEE SOL on 05/23/18 1218 Lisinopril (Lisinopril) 5 Mg Tablet, 5 MG PO DAILY, (Reported) Entered as Reported by: KYLEE SOL on 03/22/18 1305 Ondansetron (Ondansetron Odt) 8 Mg Tab.lillian, (Reported) Entered as Reported by: LAY FERNANDEZ on 08/03/182048 Pantoprazole Sodium (Pantoprazole Sodium) 40 Mg Tablet.dr, (Reported) Entered as Reported by: LAY FERNANDEZ on 08/03/182048 Polyethylene Glycol 3350 (Miralax) 119 Gm Powder, 17 GM PO Q8H PRN for CO NSTIPATION-2ND LINE, (Reported) Entered as Reported by: KYLEE SOL on 05/23/18 1218 Ticagrelor (Brilinta) 90 Mg Tablet, 90 MG PO BID, (Reported) Entered as Reported by: KYLEE SOL on 03/12/18 1329 Zolpidem Tartrate (Zolpidem Tartrate) 10 Mg Tablet, 10 MG PO HS PRN for SLEEP, (Reported) Entered as Reported by: KYLEE SOL on 03/12/18 1329 Exam Vital Signs Vital Signs Date Time Temp Pulse Resp B/P (MAP) Pulse Ox O2 Delivery O2 Flow Rate FiO2 03/10/21 12:48 73 119/67 03/10/21 11:47 93 Mechanical Ventilator 70 03/10/21 11:46 36.4 03/10/21 10:43 18 03/10/21 10:00 70.00 Physical Exam Due to the patient's COVID status, I viewed the patient from the doorway. General: The patient is intubated and sedated. Morbidly obese. HENT: Normocephalic. Atraumatic. Respiratory: Symmetrical expansion bilaterally. Skin: There is no pallor. Neurologic: Intubated and sedated. Psychiatric: Not obtainable due to clinical status. Labs Laboratory Tests Test 03/09/21 20:10 03/09/21 20:17 03/09/21 22:30 03/10/21 02:00 Range/Units White Blood Count 9.2 12.1 H 4.3-11.0 10^3/uL Red Blood Count 5.71 H 5.47 4.30-5.52 10^6/uL Hemoglobin 17.5 16.7 13.3-17.7 g/dL Hematocrit 57 H 56 H 40-54 % Mean Corpuscular Volume 100 H 102 H 80-99 fL Mean Corpuscular Hemoglobin 31 31 25-34 pg Mean Corpuscular Hemoglobin Concent 31 L 30 L 32-36 g/dL Red Cell Distribution Width 14.5 14.2 10.0-14.5 % Platelet Count 219 227 130-400 10^3/uL Mean Platelet Volume 10.4 9.3 9.0-12.2 fL Immature Granulocyte % (Auto) 0 0 % Neutrophils (%) (Auto) 70 92 H 42-75 % Lymphocytes (%) (Auto) 18 5 L 12-44 % Monocytes (%) (Auto) 9 3 0-12 % Eosinophils (%) (Auto) 2 0 0-10 % Basophils (%) (Auto) 0 0 0-10 % Neutrophils # (Auto) 6.5 11.1 H 1.8-7.8 10^3/uL Lymphocytes # (Auto) 1.7 0.6 L 1.0-4.0 10^3/uL Monocytes # (Auto) 0.8 0.4 0.0-1.0 10^3/uL Eosinophils # (Auto) 0.2 0.0 0.0-0.3 10^3/uL Basophils # (Auto) 0.0 0.0 0.0-0.1 10^3/uL Immature Granulocyte # (Auto) 0.0 0.1 0.0-0.1 10^3/uL Prothrombin Time 13.9 12.2-14.7 SEC INR Comment 1.0 0.8-1.4 Activated Partial Thromboplast Time 22 L 24-35 SEC Sodium Level 144 144 135-145 MMOL/L Potassium Level 5.3 H 3.7 3.6-5.0 MMOL/L Chloride Level 106 104 98-107 MMOL/L Carbon Dioxide Level 29 29 21-32 MMOL/L Anion Gap 9 11 5-14 MMOL/L Blood Urea Nitrogen 7 7 7-18 MG/DL Creatinine 0.77 0.96 0.60-1.30 MG/DL Estimat Glomerular Filtration Rate 110 98 BUN/Creatinine Ratio 9 7 Glucose Level 82 115 H 70-105 MG/DL Lactic Acid Level 1.25 0.50-2.00 MMOL/L Calcium Level 7.7 L 8.1 L 8.5-10.1 MG/DL Corrected Calcium 8.4 L 9.0 8.5-10.1 MG/DL Total Bilirubin 0.7 0.7 0.1-1.0 MG/DL Aspartate Amino Transf (AST/SGOT) 74 H 46 H 5-34 U/L Alanine Aminotransferase (ALT/SGPT) 41 35 0-55 U/L Alkaline Phosphatase 81 78 40-136 U/L Troponin I 0.096 H 0.474 *H <0.028 NG/ML C-Reactive Protein High Sensitivity 2.99 H 0.00-0.50 MG/DL B-Type Natriuretic Peptide 668.7 H <100.0 PG/ML Total Protein 7.0 6.1 L 6.4-8.2 GM/DL Albumin 3.1 L 2.9 L 3.2-4.5 GM/DL Triglycerides Level 130 <150 MG/DL Serum Alcohol < 10 <10 MG/DL Influenza Type A (RT-PCR) Not Detected Not Detecte Influenza Type B (RT-PCR) Not Detected Not Detecte SARS-CoV-2 RNA (RT-PCR) Detected H Not Detecte Blood Gas Puncture Site RIGHT RADIAL Blood Gas Patient Temperature 36.9 Arterial Blood pH 7.33 *L 7.37-7.43 Arterial Blood Partial Pressure CO2 70 H 35-45 MMHG Arterial Blood Partial Pressure O2 66 L 79-93 MMHG Arterial Blood HCO3 36 H 23-27 MMOL/L Arterial Blood Total CO2 37.8 H 21.0-31.0 MMOL/L Arterial Blood Oxygen Saturation 93 L 94-100 % Arterial Blood Base Excess 9.6 H -2.5-2.5 MMOL/L Ignacio Test YES-POS Blood Gas Ventilator Setting NO Blood Gas Inspired Oxygen 3L Urine Color YELLOW Urine Clarity CLEAR Urine pH 6.5 5-9 Urine Specific [place] <=1.005 1.016-1.022 Urine Protein NEGATIVE NEGATIVE Urine Glucose (UA) NEGATIVE NEGATIVE Urine Ketones NEGATIVE NEGATIVE Urine Nitrite NEGATIVE NEGATIVE Urine Bilirubin NEGATIVE NEGATIVE Urine Urobilinogen 1.0 < = 1.0 MG/DL Urine Leukocyte Esterase NEGATIVE NEGATIVE Urine RBC (Auto) NEGATIVE NEGATIVE Urine RBC NONE /HPF Urine WBC NONE /HPF Urine Squamous Epithelial Cells NONE /HPF Urine Renal Epithelial Cells NONE /HPF Urine Crystals NONE /LPF Urine Bacteria NEGATIVE /HPF Urine Casts NONE /LPF Urine Mucus NEGATIVE /LPF Urine Culture Indicated CULTURE PENDING Urine Opiates Screen NEGATIVE NEGATIVE Urine Oxycodone Screen NEGATIVE NEGATIVE Urine Methadone Screen NEGATIVE NEGATIVE Urine Propoxyphene Screen NEGATIVE NEGATIVE Urine Barbiturates Screen NEGATIVE NEGATIVE Ur Tricyclic Antidepressants Screen NEGATIVE NEGATIVE Urine Phencyclidine Screen NEGATIVE NEGATIVE Urine Amphetamines Screen NEGATIVE NEGATIVE Urine Methamphetamines Screen NEGATIVE NEGATIVE Urine Benzodiazepines Screen NEGATIVE NEGATIVE Urine Cocaine Screen NEGATIVE NEGATIVE Urine Cannabinoids Screen NEGATIVE NEGATIVE Neutrophils % (Manual) 89 % Lymphocytes % (Manual) 2 % Monocytes % (Manual) 4 % Band Neutrophils 5 % Blood Morphology Comment NORMAL Fibrinogen 373 221-496 MG/DL D-Dimer 0.86 H 0.00-0.49 UG/ML Phosphorus Level 4.1 2.3-4.7 MG/DL Magnesium Level 1.9 1.6-2.4 MG/DL Test 03/10/21 04:00 03/10/21 08:10 03/10/21 11:10 Range/Units Blood Gas Puncture Site RIGHT RADIAL Blood Gas Patient Temperature 35.4 Arterial Blood pH 7.40 7.37-7.43 Arterial Blood Partial Pressure CO2 58 H 35-45 MMHG Arterial Blood Partial Pressure O2 48 L 79-93 MMHG Arterial Blood HCO3 36 H 23-27 MMOL/L Arterial Blood Total CO2 37.8 H 21.0-31.0 MMOL/L Arterial Blood Oxygen Saturation 89 L 94-100 % Arterial Blood Base Excess 10.5 H -2.5-2.5 MMOL/L Ignacio Test YES-POS Blood Gas Ventilator Setting YES Blood Gas Inspired Oxygen 70% Troponin I 2.823 *H <0.028 NG/ML Glucometer 173 H 70-110 MG/DL Radiology ECHOCARDIOGRAM (03/10/2021): 1. This is a technically difficult study due to the patient's body habitus. Intravenous contrast was administered to enhance image quality. 2. Left ventricle: The cavity size is moderately increased. There is severe concentric hypertrophy. Systolic function is mildly reduced. The estimated ejection fraction is 40-45%. However, due to poor image quality, the left ventricular systolic function may be under or over estimated. The study is not technically sufficient to allow evaluation of LV diastolic function. 3. Inferior vena cava: The vessel is dilated. Respirophasic changes in dimension are absent. 4. Pulmonary arteries: The pulmonary artery pressure cannot be estimated on this study due to inadequate tricuspid regurgitant envelope. ECG Impression ECG Comment Electrocardiogram from 03/09 shows sinus rhythm with left atrial abnormality and possible old anterior and inferior myocardial infarctions and/or left anterior hemiblock. No signs of ST elevation or any acute ST-T wave changes. Diagnosis/Problems Diagnosis/Problems (1) Non-ST elevation myocardial infarction (NSTEMI), initial care episode Assessment & Plan: He appears to be suffering a non-ST elevation myocardial infarction. There is no evidence of ST elevation on his electrocardiograms. Unfortunately, due to his morbid obesity, his weight is above the limit of our cardiac catheterization table. As such, the best we can do for this patient at this point in time is medical management. I will change his enoxaparin over to therapeutic dosing. I will restart ticagrelor that he was supposed to be taking at home and also add low-dose aspirin. I will also start low-dose carvedilol and add intensive dose statin medication. His clinical course will likely be complicated. (2) Cardiomyopathy Assessment & Plan: His echocardiogram showed possible mild left ventricular systolic dysfunction. We will initiate guideline directed medical therapy as tolerated by his blood pressure and renal function. Unfortunately, due to the poor image quality on his echocardiogram related to his body habitus and intubated status, I cannot reliably estimate his ejection fraction. (3) Acute HFrEF (heart failure with reduced ejection fraction) Assessment & Plan: His chest x-rays have showed evidence of pulmonary congestion. I will start him on IV furosemide twice daily. We will need to monitor his renal function closely. (4) Primary hypertension Assessment & Plan: I will start him on low-dose carvedilol due to the acute myocardial infarction. We will need to watch his blood pressures closely. (5) Noncompliance with medication regimen Assessment & Plan: He has a reported history of noncompliance with his medications. This is probably contributing to his current clinical situation. (6) Morbid obesity Status: Acute Assessment & Plan: Unfortunately, due to his morbid obesity, he is above the weight limit for our cardiac catheterization table as outlined above. ROB CANTOR JR, MD Mar 10, 2021 10:04
[2021-03-10] MEDS: VANCOMYCIN INJECTION 2,000 MG in NS IV 500 ML 500 ML IV SCH ×2 (10:09→21:05)
--- NOTE | 2021-03-10 10:14 | Tele-ICU Consult ---
History of Present Illness History of Present Illness Date Seen by Provider: Mar 10, 2021 Time Seen by Provider: 08:26 Date of Admission Allergies and Home Medications Allergies Coded Allergies: No Known Drug Allergies (Verified , 11/02/07) Home Medications Acetaminophen 325 Mg Tablet, 650 MG PO Q6H PRN for PAIN-MILD, (Reported) take 2 (325mg) tabs Amlodipine Besylate 10 Mg Tablet, 10 MG PO DAILY, (Reported) Baclofen 20 Mg Tablet, 20 MG PO QID, (Reported) Calcium Polycarbophil 625 Mg Tablet, 1,250 MG PO QID, (Reported) take 2 (625mg) tabs Docusate Sodium 100 Mg Capsule, 100 MG PO Q12H PRN for CONSTIPATION-1ST LINE, (Reported) Gabapentin 600 Mg Tablet, 600 MG PO QID, (Reported) Hydrocodone Bit/Acetaminophen 1 Each Tablet, 1 TAB PO Q4H PRN for PAIN-MILD TO MODERATE, (Reported) Lisinopril 5 Mg Tablet, 5 MG PO DAILY, (Reported) Polyethylene Glycol 3350 119 Gm Powder, 17 GM PO Q8H PRN for CONSTIPATION-2ND LINE, (Reported) Ticagrelor 90 Mg Tablet, 90 MG PO BID, (Reported) Zolpidem Tartrate 10 Mg Tablet, 10 MG PO HS PRN for SLEEP, (Reported) Past Medical/Social/Family Hx Patient Social History Tobacco Use?: Yes Tobacco type used: Cigarettes Smoking Status: Current Everyday Smoker Use of E-Cig and/or Vaping dev: No Substance use?: No Immunizations Up To Date Influenza Vaccine Up-to-Date: No; Not Current Hepatitis A: No Hepatitis B: Yes TB Skin Test: None Date of Pneumonia Vaccine: Jul 18, 2017 Current Status Communicates: Verbally Primary Language: [place] Preferred Spoken Language: [place] Is interpretation needed?: No Past Medical History NSTEMI - 3 stents Feb 2015 at [facility] (weight limit for VC cath table) Supramorbid obesity Malignant HTN Medication Noncompliance Review of Systems Constitutional: see HPI Focused Exam Lactate Level 03/09/21 20:10: Lactic Acid Level 1.25 Height, Weight, BMI Height: 6'3.00" Weight: 401lbs. 0.0oz. 181.102041dz; 60.27 BMI Method:Actual Time of Focused Exam: 21:25 Exam Exam Patient acknowledged, consented, and participated in this virtual visit which was conducted using real time audio/video Vital Signs Date Time Temp Pulse Resp B/P (MAP) Pulse Ox O2 Delivery O2 Flow Rate FiO2 03/10/21 10:06 71 123/75 03/10/21 10:03 71 123/75 03/10/21 09:00 71 18 123/75 91 Mechanical Ventilator 70.00 03/10/21 08:00 72 18 136/82 91 Mechanical Ventilator 70.00 03/10/21 07:53 35.7 03/10/21 07:00 71 03/10/21 07:00 71 18 135/82 90 Mechanical Ventilator 70.00 03/10/21 06:43 68 18 92 70 03/10/21 06:42 65 130/80 03/10/21 06:41 65 130/80 03/10/21 06:00 65 18 130/80 92 Mechanical Ventilator 70.00 03/10/21 05:00 64 18 125/81 93 Mechanical Ventilator 70.00 03/10/21 04:00 35.8 03/10/21 04:00 93 Mechanical Ventilator 70 03/10/21 04:00 63 18 121/74 92 Mechanical Ventilator 70.00 03/10/21 04:00 66 118/76 03/10/21 03:59 66 118/76 03/10/21 03:00 64 18 121/77 93 Mechanical Ventilator 70.00 03/10/21 02:48 66 18 93 70 03/10/21 02:05 Mechanical Ventilator 70.00 03/10/21 02:00 63 18 105/67 93 Mechanical Ventilator 100.00 03/10/21 01:03 66 124/77 03/10/21 01:03 66 124/77 03/10/21 01:00 66 18 119/73 94 Mechanical Ventilator 100.00 03/10/21 01:00 66 03/10/21 00:45 63 18 117/71 96 Mechanical Ventilator 100.00 03/10/21 00:30 66 18 124/77 96 Mechanical Ventilator 100.00 03/10/21 00:21 36.9 86 93 100 03/10/21 00:15 67 18 127/78 98 Mechanical Ventilator 100.00 03/10/21 00:00 68 18 115/72 99 Mechanical Ventilator 100.00 03/09/21 23:45 35.6 84 18 128/82 100 Mechanical Ventilator 100.00 03/09/21 23:45 100 Mechanical Ventilator 100 03/09/21 23:43 84 03/09/21 23:42 120 18 93 100 03/09/21 23:42 87 Vapotherm 30.00 50 03/09/21 23:30 74 18 78/52 92 Mechanical Ventilator 100.00 03/09/21 22:05 70 03/09/21 19:55 Nasal Cannula 3.00 03/09/21 19:49 Nasal Cannula 3.00 03/09/21 19:49 36.9 86 28 96/82 (87) 87 Room Air I & O 03/10/21 07:00 Intake Total 450 ml Output Total 600 ml Balance -150 ml Height & Weight Height: 6'3.00" Weight: 401lbs. 0.0oz. 181.149847kw; 60.27 BMI Method:Actual General Appearance: No Apparent Distress Respiratory: Lungs Clear, Normal Breath Sounds, Decreased Breath Sounds Cardiovascular: Regular Rate, Rhythm, Other (Bilateral pedal) Capillary Refill: Less Than 3 Seconds Peripheral Pulses: 2+ Radial Pulses (R), 2+ Radial Pulses (L) Gastrointestinal: normal bowel sounds, non tender, soft, no organomegaly Results Lab Laboratory Tests 03/09/21 20:10 03/10/21 02:00 Assessment/Plan Assessment/Plan (Tele-ICU Physician , consultation) Available chart/ vitals / labs / Images reviewed H&P is from ER notes Patient's information available about PMH, Shx, Fhx allergy reviewed in EMR. ROS as per chart and RN report Now in ICU, hemodynamically stable Video assessment done using teleICU camera, rest of exam as per RN Discussed with RN. Sedation gtt: propofol 40 ( RASS -2 ) fent prn VENT SETTINGS and ABG reviewed Not candidate for SBT today REVIEWED Cardiovascular Stability / Sedation Score / FI02/PEEP / ABG / CXR Consultants: cards Hospital course: 03/09 - COVID PNA , ( post J&J) DIFFICULT INTUBATION A/P AHRF / ARDS due to severe COVID19 - Intubated 03/09 in ER - CAN NOT VISUALIZE ETT ON CXR, ASKED RN TO CONFURM WITH RADIOLOGY - PER RADIOLOGY ETT IS IN CORRECT POSITION -AC 18 - 500 ( 6cc/kg =480) 70% peep 12 , spRR 28 -with body habitus will postpone prone position for today - conservative fluid strategy (aim for even or negative fluid balance Difficult intubation in ER - done by anaestesiology -appears to be old tracheostomy scar in place as per noted with redundant scar tissue from previous tracheostomy - in ER c/o facial swelling 5 days ( taken benadryl ) FVMT-Dafdflnwrly-1/COVID-19 PNA ( Symptom onset ~ 1/ latisha J&J vaccine --Remdesivir --Dexamethasone -Hypercoagulable state , thrombotic microangiopathy, DDIMER= 0.9 on -> lovenox ppx dose 60 bid , follow D dimer Suspected superimposed bact PNA ( flu neg) -empiric abx Zosyn and Vanco started on 03/10 Cx sputum CAD, stent 2007 - ECHO pending Hyperglycemia - ISS , close f/up on steroids Chronic pain syndrome - baclofen, hydrocodone [employer] HTN morbid obesity Lines : R IJ 03/09 (Central Line Necessity Reviewed) Haddad: + OG: Nutrition: Analgesia: Anxiety/ delirium VTE Prophylaxis: zully 60 bid Stress Ulcer Prophylaxis: Glycemic Control: Plans in collaboration with bedside consultants and IM MDs. Discussed with RN to reach out if any questions or concerns A total of 35 minutes of critical care time was devoted to this patient today, required to treat and/or prevent further deterioration of critical care condition ( as above ) . ÓSCAR DALLAS MD Mar 10, 2021 10:14
[2021-03-10] MEDS ORDERED: ENOXAPARIN 120 MG/0.8 ML (LOVENOX) SQ NR (10:30)
[2021-03-10] MEDS: TICAGRELOR 90 MG TABLET (BRILINTA) PO SCH ×2 (11:23→21:05)
[2021-03-10] MEDS: ASPIRIN 81 MG CHEW (CHILDREN'S ASA) PO SCH (11:24)
[2021-03-10] MEDS: fentaNYL INJ 100 MCG/2 ML AMP IV PRN ×2 (11:29→16:43)
[2021-03-10] MEDS: LACRI-LUBE OPTHALMIC OINT 3.5 GM TUBE OU PRN ×2 (11:35→16:28)
--- NOTE | 2021-03-10 11:52 | History & Physical-Hospitalist ---
CIFUENTESLEIGH 03/10/21 1151: History of Present Illness HPI/Chief Complaint Rayray Manuel is a 50 year old male who presented to the ED yesterday evening via EMS from [facility] with lethargy and facial swelling. Patient has a past medical history significant for chronic back pain managed by Hydrocodone/acetaminophen, NSTEMI with stent placement in 2016, HTN, hyperlipidemia, hypertriglyceridemia, morbid obesity, and GERD. Per the ED re port the patient had been experiencing his symptoms for the past 5 days and had been taking Benadryl for the edema. His SpO2 was 85-87% on room air. He smokes 1/2 pack per day. He tested positive for COVID-19 infection. He had received one dose of the Bharath&Bharath vaccine. His pants were soaked in urine although he did not recall voiding. The patient went unresponsive with SpO2 in the upper 80s on 100% Vapotherm. He was emergently intubated and a central line was placed in his right internal jugular vein. Patient is intubated, sedated, and supine this morning. Ventilator dependent day: 1 Ventilator settings: 500/18/12 of PEEP and FiO2 of 70% AB.4/58/48 Antibiotics day 1: Vancomycin and Zosyn Remdesivir day [address] Haddad catheter in place Cr: 0.96 Lactic Acid: 1.25 Troponin I: 0.474 D-dimer: 0.86 CRP: 2.99 BNP: 668.7 CXR 03/09: ET in thoracic trachea, OG in esophagus, right IJ at the upper SVC or right innominate. No pneumothorax. Cardiomegaly. No focal consolidation CXR 03/10: Increase in central pulmonary vascular congestion and worsening interstitial and alveolar opacities EKG: Sinus rhythm, old inferior and anterior infarcts, IVDC due to possible atypical RBBB, left atrial enlargement Source: EMS notes reviewed Exam Limitations: clinical condition Date Seen 03/10/21 Time Seen by a Provider: 09:45 Attending Physician Katarzyna Luna DO PCP Morgan Rodas MD Referring Physician Date of Admission Mar 09, 2021 at 21:20 Home Medications & Allergies Home Medications Reviewed patient Home Medication Reconciliation performed by pharmacy medication reconciliations hvac/r service technician and/or nursing. Patients Allergies have been reviewed. Allergies Allergies Coded Allergies No Known Drug Allergies (Verified11/02/07) Past Hsswnzx-Ycntki-Yigdor Hx Patient Social History Tobacco Use?: Yes Tobacco type used: Cigarettes Smoking Status: Current Everyday Smoker (1/2 pack per day) Use of E-Cig and/or Vaping dev: No Substance use?: No Immunizations Up To Date Date of Influenza Vaccine: Mar 07, 2015 Hepatitis A: No Hepatitis B: Yes PED Vaccines UTD: No Date of Pneumonia Vaccine: Jul 18, 2017 Seasonal Allergies Seasonal Allergies: Yes Current Status Communicates: Verbally Primary Language: Bermudian Preferred Spoken Language: Bermudian Is interpretation needed?: No Past Medical History Surgeries: Appendectomy, Cardiac, Coronary Stent, Ear Surgery, Orthopedic Currently Using CPAP: No Currently Using BIPAP: No Coronary Artery Disease, Heart Attack, High Cholesterol, Hypertension Neuropathy Sexually Transmitted Disease: No HIV/AIDS: No Gastroesophageal Reflux, Chronic Constipation Degenerate Disk Disease, Chronic Back Pain, Gout Loss of Vision: Denies Hearing Impairment: Denies Blood Disorders: No Adverse Reaction/Blood Tranf: No NSTEMI - 3 stents Feb 2015 at [place] (weight limit for VC cath table) Supramorbid obesity Malignant HTN Medication Noncompliance Family Medical History Cardiovascular disease 19 FATHER (BYPASS) Hypercholesterolemia 19 FATHER Hypertension 19 FATHER Review of Systems ROS-Unable to Obtain: Unable to obtain Physical Exam Physical Exam Vital Signs Vital Signs - First Documented 03/09/21 03/09/21 19:49 23:42 Temp 36.9 Pulse 86 Resp 28 B/P (MAP) 96/82 (87) Pulse Ox 87 O2 Delivery Room Air O2 Flow Rate 3.00 FiO2 50 Capillary Refill : Less Than 3 Seconds Height, Weight, BMI Height: 6'3.00" Weight: 401lbs. 0.0oz. 181.499575ew; 60.27 BMI Method:Actual General Appearance: Chronically ill, Obese, Other (intubated, sedated, supine) Skin: Other (edema of face and purple/erythematous discoloration of eyelids) Results Results/Procedures Labs Laboratory Tests 03/09/21 20:10 03/10/21 02:00 Patient resulted labs reviewed. Imaging: Reviewed Imaging Films, Reviewed Imaging Report Assessment/Plan Admission Diagnosis Acute on chronic respiratory failure due to COVID-19 infection and Obesity hypoventilation syndrome Admission Status: Inpatient Order (span 2 midnights) Reason for Inpatient Admission: Acute on chronic respiratory failure due to COVID-19 infection and Obesity hypoventilation syndrome Assessment and Plan Assessment: Acute on chronic respiratory failure secondary to COVID-19 infection and Obesity hypoventilation syndrome Congestive heart failure Sepsis BMI 60.3, Severe obesity Ventilator dependent day 1 Coronary artery disease with NSTEMI s/p 3 stents placement in 2016 Facial cellulitis Plan: Vancomycin Zosyn Remdesivir Propofol sedation Lovenox - DVT prophylaxis, anticoagulation with elevated D-dimer Protonix and Famotidine - stress ulcer prophylaxis Decadron injection Novolog sliding scale Ticagrelor Carvedilol Cardiology following; stated 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 Who presented to the ER by ambulance with lethargy for 9 days was found to be in hypoxic and hypercapnic respiratory failure requiring BiPAP. He failed that it became obtunded and emergently intubated in the ER and central line placed. He had a stent in [address] Funes cardiology consult reports that he is not a cardiac cath candidate because he is too heavy for the table. Vent settings are 500/18/12/70% ABG is 7.40/58/48, adjusting oxygen Vancomycin and Zosyn maintained along with Decadron Very grave prognosis Source: RN/MD, EMS notes reviewed Exam Limitations: clinical condition Past Crvujob-Twdnxe-Uszsel Hx Patient Social History Marrital Status: single Employed/Student: unemployed Smoking Status: Current Everyday Smoker (1/2 pack per day) Past Medical History COPD Chronic Edema/Swelling, Coronary Artery Disease, High Cholesterol, Hypertension Chronic Back Pain Family Medical History Cardiovascular disease 19 FATHER (BYPASS) Hypercholesterolemia 19 FATHER Hypertension 19 FATHER Review of Systems Constitutional: see HPI Physical Exam Physical Exam General Appearance: Chronically ill, Obese, Other (intubated, sedated, supine) Respiratory: No Accessory Muscle Use, No Respiratory Distress, Decreased Breath Sounds Cardiovascular: Regular Rate, Rhythm Assessment/Plan Admission Diagnosis Acute on chronic hypoxic hypercapnic respiratory failure COVID-19 pneumonia Super morbid obesity BMI 61 Non-ST elevation UT CAD previous stent Current smoker COPD exacerbation Obesity hypoventilation syndrome Plan: Ventilator management ICU care Prognosis poor Admission Status: Inpatient Order (span 2 midnights) Reason for Inpatient Admission: Respiratory failure Supervisory-Addendum Brief Verification & Attestation Participated in pt care: history, MDM, physical Personally performed: exam, history, MDM, supervision of care Care discussed with: Medical Student Procedures: n/a Results interpretation: Verified all documentation Verification and Attestation of Medical Student E/M Service A medical student performed and documented this service in my presence. I reviewed and verified all information documented by the medical student and made modifications to such information, when appropriate. I personally performed the physical exam and medical decision making. Katarzyna Luna, Mar 11, 2021,05:42 LEIGH CIFUENTES Mar 10, 2021 11:51 KATARZYNA LUNA DO Mar 11, 2021 05:42
[2021-03-10 13:36] LABS: TRIGLYCERIDES 164 MG/DL (<150); VLDL CHOLESTEROL 33 MG/DL (5-40)
[2021-03-10 13:41] LABS: CHOLESTEROL 168 MG/DL (< 200)
[2021-03-10 13:42] LABS: HDL CHOLESTEROL 28 MG/DL (40-60)
[2021-03-10] MEDS ORDERED: GABA800T10 PO (15:12)
[2021-03-10] MEDS ORDERED: HYDR-3817 PO (15:12)
[2021-03-10] MEDS: FUROSEMIDE 40 MG/4 ML INJ (LASIX) IVP SCH (16:28)
[2021-03-10] MEDS: ROSUVASTATIN 20 MG (CRESTOR) TABLET PO SCH (21:05)
[2021-03-10] MEDS: ENOXAPARIN 300 MG/3 ML (LOVENOX) MULTI-DOSE VIAL SQ SCH (21:06)
[2021-03-11] MEDS: PIPERACILLIN SODIUM/TAZOBACTAM 4.5 GM in NS (IVPB) 100 ML IV SCH ×4 (00:49→23:42)
[2021-03-11] MEDS: PROPOFOL DRIP (ICU) 100 ML IV SCH ×13 (00:53→23:42)
[2021-03-11] MEDS ORDERED: MIDAZOLAM DRIP PRE-MIX 100 ML IV ONE (01:42)
[2021-03-11] MEDS: RT-ALBUTEROL HFA 8.5 GM INHALER IH SCH ×4 (01:50→22:08)
[2021-03-11 01:51] VITALS: BP 160/98
[2021-03-11] MEDS: inSUlin ASPART (NovoLOG) 1 UNIT/0.01 ML (CHARGE PER UNIT) SC SCH ×5 (01:56→23:46)
[2021-03-11] MEDS: fentaNYL INJ 100 MCG/2 ML AMP IV PRN ×2 (01:57→11:41)
[2021-03-11] MEDS: MIDAZOLAM DRIP PRE-MIX 100 ML IV SCH ×2 (01:58→17:54)
[2021-03-11] MEDS: NOREPINEPHRINE 8 MG/250 ML 250 ML IV SCH ×4 (02:23→19:11)
[2021-03-11] MEDS: CATHETER FLUSH 10 ML SYR IV SCH ×3 (02:23→20:08)
[2021-03-11 04:42] LABS: BASOPHILS % (AUTO) 0 % (0-10); EOSINOPHILS # (AUTO) 0.1 10^3/uL (0.0-0.3); EOSINOPHILS % (AUTO) 1 % (0-10); HEMATOCRIT 52 % (40-54); HEMOGLOBIN 15.9 g/dL (13.3-17.7); LYMPHOCYTES # (AUTO) 1.9 10^3/uL (1.0-4.0); LYMPHOCYTES % (AUTO) 15 % (12-44); MEAN CORPUSCULAR HEMOGLOBIN 30 pg (25-34); MEAN CORPUSCULAR HGB CONC 31 g/dL (32-36); MEAN CORPUSCULAR VOLUME 98 fL (80-99); MEAN PLATELET VOLUME 9.9 fL (9.0-12.2); MONOCYTES # (AUTO) 1.3 10^3/uL (0.0-1.0); MONOCYTES % (AUTO) 10 % (0-12); NEUTROPHILS # (AUTO) 9.7 10^3/uL (1.8-7.8); NEUTROPHILS % (AUTO) 74 % (42-75); PLATELET COUNT 262 10^3/uL (130-400); WHITE BLOOD COUNT 13.1 10^3/uL (4.3-11.0)
[2021-03-11 05:12] LABS: ABG BASE EXCESS 12.5 MMOL/L (-2.5-2.5); ABG OXYGEN SATURATION 91 % (94-100); ABG PCO2 51 MMHG (35-45); ABG PH 7.47 (7.37-7.43); ABG PO2 59 MMHG (79-93); ABG TCO2 38.5 MMOL/L (21.0-31.0)
[2021-03-11 05:14] LABS: ALLENS TEST YES-POS; INSPIRED O2 70%; PATIENT TEMP 37.1; VENTILATOR YES
[2021-03-11 05:38] LABS: ALBUMIN 2.7 GM/DL (3.2-4.5); POTASSIUM 3.5 MMOL/L (3.6-5.0)
[2021-03-11 05:39] LABS: CALCIUM 7.9 MG/DL (8.5-10.1)
[2021-03-11 05:41] LABS: TOTAL PROTEIN 5.8 GM/DL (6.4-8.2)
[2021-03-11 05:42] LABS: BILIRUBIN,TOTAL 0.6 MG/DL (0.1-1.0)
[2021-03-11 05:44] LABS: CREATININE SERUM 1.27 MG/DL (0.60-1.30); PHOSPHORUS 3.8 MG/DL (2.3-4.7)
[2021-03-11] MEDS: POTASSIUM CL 10MEQ/50ML IVPB 50 ML IV SCH ×3 (05:44→06:48)
[2021-03-11] MEDS: MAGNESIUM 1 GM/100 ML IVPB 100 ML IV SCH (05:44)
[2021-03-11] MEDS: KCL 20 MEQ TAB (K-DUR) PO SCH (05:44)
[2021-03-11] MEDS ORDERED: POTASSIUM CL 10MEQ/50ML IVPB 100 ML IV ONE (05:46)
[2021-03-11 05:47] LABS: MAGNESIUM 1.8 MG/DL (1.6-2.4)
[2021-03-11] MEDS: FUROSEMIDE 40 MG/4 ML INJ (LASIX) IVP SCH ×2 (06:05→17:52)
[2021-03-11 07:21] VITALS: BP 129/84
[2021-03-11] MEDS: ASPIRIN 81 MG CHEW (CHILDREN'S ASA) PO SCH (08:28)
[2021-03-11] MEDS: TICAGRELOR 90 MG TABLET (BRILINTA) PO SCH ×2 (08:28→20:07)
[2021-03-11] MEDS: PANTOPRAZOLE 40 MG (PROTONIX) VIAL IV SCH (08:29)
[2021-03-11] MEDS: MICONAZOLE 2% POWDER (DESENEX AF) 90 GM TOP SCH ×4 (08:29→20:08)
[2021-03-11] MEDS: FAMOTIDINE 20MG/2ML IV (PEPCID) IVP SCH (08:29)
[2021-03-11] MEDS: ENOXAPARIN 300 MG/3 ML (LOVENOX) MULTI-DOSE VIAL SQ SCH ×2 (08:29→20:08)
[2021-03-11] MEDS: LACRI-LUBE OPTHALMIC OINT 3.5 GM TUBE OU PRN (08:30)
[2021-03-11] MEDS ORDERED: TROUGH ORDER-PHARMACY XX ONE (09:00)
--- NOTE | 2021-03-11 09:00 | Cardiology Progress Note ---
Progress Note-Cardiology Events since last exam Date Seen by Provider: Mar 11, 2021 Time Seen by Provider: 08:58 Events since last exam I am following him due to probable non-ST elevation myocardial infarction. He remains in the intensive care unit intubated and sedated. Yesterday the nurses tried a sedation holiday but the patient became very agitated and had to be placed back on full sedation. I did not enter the patient's room due to his COVID status. I did view the patient from the doorway. I spoke to his nurse who is caring for him today. One of her concerns today is that the patient has significant swelling of his lips. He is requiring 70% FiO2 on the ventilator and nursing has been unable to titrate this down due to hypoxia. He is not on any vasopressors at this point in time. Certain portions of this document may have been dictated utilizing voice recognition technology. Inherent to this technology, typographical and grammatical errors may exist. As much as I am diligent to identify and correct these mistakes, some errors may remain in the document. Vitals Last set of Vitals Signs Vital Signs 03/11/21 03/11/21 03/11/21 08:00 09:15 09:23 Temp 36.7 Pulse 77 Resp 17 B/P (MAP) 152/96 Pulse Ox 93 O2 Delivery Mechanical Ventilator O2 Flow Rate 70.00 FiO2 70 Labs Labs Laboratory Tests 03/11/21 04:00 Exam Vital Signs Vital Signs Date Time Temp Pulse Resp B/P (MAP) Pulse Ox O2 Delivery O2 Flow Rate FiO2 03/11/21 09:23 93 Mechanical Ventilator 70 03/11/21 09:15 77 17 152/96 70.00 03/11/21 08:00 36.7 Physical Exam Due to the patient's COVID status, I viewed the patient from the doorway. General: The patient is intubated and sedated. HENT: Normocephalic. Atraumatic. Respiratory: Symmetrical expansion bilaterally. Skin: There is no pallor. Neurologic: Intubated and sedated. Psychiatric: Not obtainable due to clinical status. Labs Laboratory Tests Test 03/10/21 11:10 03/10/21 18:02 03/11/21 00:46 03/11/21 04:00 Range/Units Glucometer 173 H 134 H 122 H 70-110 MG/DL White Blood Count 13.1 H 4.3-11.0 10^3/uL Red Blood Count 5.29 4.30-5.52 10^6/uL Hemoglobin 15.9 13.3-17.7 g/dL Hematocrit 52 40-54 % Mean Corpuscular Volume 98 80-99 fL Mean Corpuscular Hemoglobin 30 25-34 pg Mean Corpuscular Hemoglobin Concent 31 L 32-36 g/dL Red Cell Distribution Width 14.6 H 10.0-14.5 % Platelet Count 262 130-400 10^3/uL Mean Platelet Volume 9.9 9.0-12.2 fL Immature Granulocyte % (Auto) 1 % Neutrophils (%) (Auto) 74 42-75 % Lymphocytes (%) (Auto) 15 12-44 % Monocytes (%) (Auto) 10 0-12 % Eosinophils (%) (Auto) 1 0-10 % Basophils (%) (Auto) 0 0-10 % Neutrophils # (Auto) 9.7 H 1.8-7.8 10^3/uL Lymphocytes # (Auto) 1.9 1.0-4.0 10^3/uL Monocytes # (Auto) 1.3 H 0.0-1.0 10^3/uL Eosinophils # (Auto) 0.1 0.0-0.3 10^3/uL Basophils # (Auto) 0.0 0.0-0.1 10^3/uL Immature Granulocyte # (Auto) 0.1 0.0-0.1 10^3/uL Blood Gas Puncture Site L RAD Blood Gas Patient Temperature 37.1 Arterial Blood pH 7.47 H 7.37-7.43 Arterial Blood Partial Pressure CO2 51 H 35-45 MMHG Arterial Blood Partial Pressure O2 59 L 79-93 MMHG Arterial Blood HCO3 37 H 23-27 MMOL/L Arterial Blood Total CO2 38.5 H 21.0-31.0 MMOL/L Arterial Blood Oxygen Saturation 91 L 94-100 % Arterial Blood Base Excess 12.5 H -2.5-2.5 MMOL/L Ignacio Test YES-POS Blood Gas Ventilator Setting YES Blood Gas Inspired Oxygen 70% Sodium Level 145 135-145 MMOL/L Potassium Level 3.5 L 3.6-5.0 MMOL/L Chloride Level 101 98-107 MMOL/L Carbon Dioxide Level 31 21-32 MMOL/L Anion Gap 13 5-14 MMOL/L Blood Urea Nitrogen 13 7-18 MG/DL Creatinine 1.27 0.60-1.30 MG/DL Estimat Glomerular Filtration Rate 70 BUN/Creatinine Ratio 10 Glucose Level 103 70-105 MG/DL Calcium Level 7.9 L 8.5-10.1 MG/DL Corrected Calcium 8.9 8.5-10.1 MG/DL Phosphorus Level 3.8 2.3-4.7 MG/DL Magnesium Level 1.8 1.6-2.4 MG/DL Total Bilirubin 0.6 0.1-1.0 MG/DL Aspartate Amino Transf (AST/SGOT) 44 H 5-34 U/L Alanine Aminotransferase (ALT/SGPT) 28 0-55 U/L Alkaline Phosphatase 66 40-136 U/L Total Protein 5.8 L 6.4-8.2 GM/DL Albumin 2.7 L 3.2-4.5 GM/DL Triglycerides Level 167 H <150 MG/DL Test 03/11/21 08:45 Range/Units Vancomycin Level Trough 30.2 *H 10.0-20.0 UG/ML Diagnosis/Problems Diagnosis/Problems (1) Non-ST elevation myocardial infarction (NSTEMI), initial care episode Assessment & Plan: He appears to be suffering a non-ST elevation myocardial infarction. There is no evidence of ST elevation on his electrocardiograms. Unfortunately, due to his morbid obesity, his weight is above the limit of our cardiac catheterization table. As such, the best we can do for this patient at this point in time is medical management. I recommend he continue therapeutic dosing of enoxaparin for 5 days total. I restarted ticagrelor that he was supposed to be taking at home and also added low-dose aspirin. I also started low-dose carvedilol and intensive dose statin medication. His clinical course will likely be complicated. (2) Cardiomyopathy Assessment & Plan: His echocardiogram from this admission showed possible mild left ventricular systolic dysfunction. We will initiate guideline directed medical therapy as tolerated by his blood pressure and renal function. Unfortunately, due to the poor image quality on his echocardiogram related to his body habitus and intubated status, I cannot reliably estimate his ejection fraction. (3) Acute HFrEF (heart failure with reduced ejection fraction) Assessment & Plan: His chest x-rays have showed evidence of pulmonary congestion. I started him on IV furosemide twice daily on 03/11. We will need to monitor his renal function closely. (4) Primary hypertension Assessment & Plan: His blood pressures have been trending upwards. I started low-dose carvedilol on 03/10. I will slowly increase the dose as tolerated by his blood pressure. I would avoid rapid increase his in his antihypertensive medication or he may develop iatrogenic hypotension. (5) Noncompliance with medication regimen Assessment & Plan: He has a reported history of noncompliance with his medications. This is probably contributing to his current clinical situation. (6) Morbid obesity Status: Acute Assessment & Plan: Unfortunately, due to his morbid obesity, he is above the weight limit for our cardiac catheterization table as outlined above. ROB CANTOR JR, MD Mar 11, 2021 09:00
[2021-03-11] MEDS: VASOPRESSIN INJECTION 20 UNIT in NS (IVPB) 100 ML IV SCH ×2 (09:26→19:10)
--- NOTE | 2021-03-11 09:59 | Tele-ICU Progress Note ---
Subjective Date Seen by a Provider: Mar 11, 2021 Time Seen by a Provider: 09:58 Sepsis Event Evaluation Height, Weight, BMI Height: 6'3.00" Weight: 401lbs. 0.0oz. 181.962722ys; 60.27 BMI Method:Actual Focused Exam Lactate Level 03/09/21 20:10: Lactic Acid Level 1.25 Time of Focused Exam: 21:25 Exam Exam Patient acknowledged, consented, and participated in this virtual visit which was conducted using real time audio/video Vital Signs Date Time Temp Pulse Resp B/P (MAP) Pulse Ox O2 Delivery O2 Flow Rate FiO2 03/11/21 09:23 93 Mechanical Ventilator 70 03/11/21 09:15 77 17 152/96 92 Mechanical Ventilator 70.00 03/11/21 09:00 75 17 157/108 93 Mechanical Ventilator 70.00 03/11/21 08:45 78 14 161/101 93 Mechanical Ventilator 70.00 03/11/21 08:30 77 18 149/90 92 Mechanical Ventilator 70.00 03/11/21 08:30 75 129/84 03/11/21 08:30 75 129/84 03/11/21 08:15 76 18 144/85 93 Mechanical Ventilator 70.00 03/11/21 08:00 75 18 134/84 93 Mechanical Ventilator 70.00 03/11/21 08:00 36.7 03/11/21 07:45 77 18 134/81 92 Mechanical Ventilator 70.00 03/11/21 07:30 75 18 134/82 91 Mechanical Ventilator 70.00 03/11/21 07:21 75 18 91 70 03/11/21 07:15 75 17 129/84 91 Mechanical Ventilator 70.00 03/11/21 07:00 75 17 135/84 91 Mechanical Ventilator 70.00 03/11/21 07:00 71 03/11/21 06:07 78 121/72 03/11/21 06:07 78 121/72 03/11/21 06:00 75 18 128/76 92 Mechanical Ventilator 70.00 03/11/21 05:00 78 18 121/72 93 Mechanical Ventilator 70.00 03/11/21 04:00 80 17 121/82 93 Mechanical Ventilator 70.00 03/11/21 04:00 93 Mechanical Ventilator 70 03/11/21 03:46 78 121/72 03/11/21 03:45 78 121/72 03/11/21 03:00 84 17 125/78 93 Mechanical Ventilator 70.00 03/11/21 02:00 90 18 124/74 92 Mechanical Ventilator 70.00 03/11/21 01:58 90 18 160/98 03/11/21 01:51 90 18 92 70 03/11/21 01:00 83 17 137/83 93 Mechanical Ventilator 70.00 03/11/21 01:00 84 03/11/21 00:53 84 122/72 03/11/21 00:53 84 122/72 03/11/21 00:00 85 21 124/71 92 Mechanical Ventilator 70.00 03/11/21 00:00 37.1 03/10/21 23:59 92 Mechanical Ventilator 70 03/10/21 23:00 84 18 118/72 92 Mechanical Ventilator 70.00 03/10/21 22:12 84 122/72 03/10/21 22:12 84 122/72 03/10/21 22:00 86 17 118/68 92 Mechanical Ventilator 70.00 03/10/21 21:17 84 18 92 70 03/10/21 21:00 85 17 123/67 92 Mechanical Ventilator 70.00 03/10/21 20:04 37.1 03/10/21 20:00 91 Mechanical Ventilator 70 03/10/21 20:00 82 36 126/72 92 Mechanical Ventilator 70.00 03/10/21 19:27 84 121/71 03/10/21 19:27 84 121/71 03/10/21 19:00 86 03/10/21 19:00 86 25 118/68 92 Mechanical Ventilator 70.00 03/10/21 18:41 84 18 92 70 03/10/21 18:00 84 18 123/70 92 Mechanical Ventilator 70.00 03/10/21 17:00 86 23 140/75 92 Mechanical Ventilator 70.00 03/10/21 16:34 86 129/71 03/10/21 16:34 86 129/71 03/10/21 16:30 93 Mechanical Ventilator 70 03/10/21 16:00 82 24 130/73 92 Mechanical Ventilator 70.00 03/10/21 15:40 36.8 03/10/21 15:00 86 26 129/71 90 Mechanical Ventilator 70.00 03/10/21 14:52 96 23 92 70 03/10/21 14:00 76 26 129/71 90 Mechanical Ventilator 70.00 03/10/21 13:41 73 03/10/21 13:00 73 18 123/68 89 Mechanical Ventilator 70.00 03/10/21 12:48 73 119/67 03/10/21 12:47 73 119/67 03/10/21 12:00 74 18 121/67 90 Mechanical Ventilator 70.00 03/10/21 11:47 93 Mechanical Ventilator 70 03/10/21 11:46 36.4 03/10/21 11:00 71 24 127/74 90 Mechanical Ventilator 70.00 03/10/21 10:43 70 18 90 70 03/10/21 10:06 71 123/75 03/10/21 10:03 71 123/75 03/10/21 10:00 73 24 144/90 92 Mechanical Ventilator 70.00 l I & O 03/11/21 07:00 Intake Total 2140 ml Output Total 2315 ml Balance -175 ml Height & Weight Height: 6'3.00" Weight: 401lbs. 0.0oz. 181.505371gu; 60.27 BMI Method:Actual General Appearance: Chronically ill, Obese, Other (intubated, sedated, supine) Respiratory: No Accessory Muscle Use, No Respiratory Distress, Decreased Breath Sounds Cardiovascular: Regular Rate, Rhythm Capillary Refill: Less Than 3 Seconds Peripheral Pulses: 2+ Radial Pulses (R), 2+ Radial Pulses (L) Gastrointestinal: normal bowel sounds, non tender, soft, no organomegaly Skin: Other (edema of face and purple/erythematous discoloration of eyelids) Results Lab Laboratory Tests 03/09/21 20:10 03/10/21 02:00 03/11/21 04:00 Assessment/Plan Assessment/Plan (Tele-ICU Physician , Progress Note ) Available chart/ vitals / labs / Images reviewed Video assessment done using teleICU camera, rest of exam as per RN Discussed with RN , EXAM PER RN Events overnight : Afebrile FiO2 - 770 I/O = neg Drips: Pressors: , hemodynamically stable Sedation gtt: propofol 50 versed 6 ( RASS -3 ) fent prn VENT SETTINGS and ABG reviewed Not candidate for SBT today REVIEWED Cardiovascular Stability / Sedation Score / FI02/PEEP / ABG / CXR Consultants: rashad Hospital course: 03/09 - COVID PNA , ( post J&J) DIFFICULT INTUBATION 03/10 - peep 12 , 70% 03/11 -peep 12 70% , increased edema of lips and toungue - INCREASED DECARDONE TO 10 q6H A/P AHRF / ARDS due to severe COVID19 - Intubated 03/09 in ER - CAN NOT VISUALIZE ETT ON CXR, ASKED RN TO CONFURM WITH RADIOLOGY - PER RADIOLOGY ETT IS IN CORRECT POSITION -AC 18 - 500 ( 6cc/kg =480) 70% peep 12 , spRR 28 -with body habitus will postpone prone position for today - conservative fluid strategy (aim for even or negative fluid balance Difficult intubation in ER - done by anaestesiology -appears to be old tracheostomy scar in place as per noted with redundant scar tissue from previous tracheostomy - in ER c/o facial swelling 5 days ( taken benadryl ) - as per RN exam 03/11 - increased edema of lips and toungue - INCREASED DECARDONE TO 10 q6H [id number]-[id number]-2/COVID-19 PNA ( Symptom onset ~? DX Received latisha J&J vaccine --Remdesivir x1 --Dexamethasone - INCREASED DECARDONE TO 10 q6H 03/11 -Hypercoagulable state , thrombotic microangiopathy, DDIMER= 0.9 on -> lovenox ppx dose 60 bid , follow D dimer Suspected superimposed bact PNA ( flu neg) -empiric abx Zosyn and Vanco started on 03/10 Cx sputum CAD, stent 2007 - ECHO 03/10= EF 45% Hyperglycemia - ISS , close f/up on steroids Chronic pain syndrome - baclofen, hydrocodone [employer] HTN morbid obesity Lines : R IJ 03/09 (Central Line Necessity Reviewed) Haddad: + OG: Nutrition: TF Analgesia: Anxiety/ delirium VTE Prophylaxis: zully 60 bid Stress Ulcer Prophylaxis: Glycemic Control: Plans in collaboration with bedside consultants and IM MDs. Discussed with RN to reach out if any questions or concerns A total of 35 minutes of critical care time was devoted to this patient today, required to treat and/or prevent further deterioration of critical care condition ( as above ) . ÓSCAR DALLAS MD Mar 11, 2021 09:59
[2021-03-11 10:26] VITALS: BP 161/103
--- NOTE | 2021-03-11 12:26 | Progress Note - Hospitalist ---
LEIGH CIFUENTES 03/11/21 1225: Subjective HPI/CC On Admission Date Seen by Provider: Mar 11, 2021 Time Seen by Provider: 10:15 CC: Respiratory failure HPI: 50 yr old WM with super morbid obesity with past medical history of CAD and congestive heart failure, who presents with worsened hypoxia with periorbital edema consistent with cellulitis. Who presented to the ER by ambulance with lethargy for 9 days was found to be in hypoxic and hypercapnic respiratory failure requiring BiPAP. He failed that it became obtunded and emergently intubated in the ER and central line placed. He had a stent in [address] Funes cardiology consult reports that he is not a cardiac cath candidate because he is too heavy for the table. Vent settings are 500/18/12/70% ABG is 7.40/58/48, adjusting oxygen Vancomycin and Zosyn maintained along with Decadron Very grave prognosis Subjective/Events-last exam Patient is supine, intubated, and sedated. Ventilator dependent day: 2 Ventilator settings: 502/18/12 of PEEP and FiO2 of 70% AB.47/51/59 Antibiotics day 2: Vancomycin and Zosyn Remdesivir infused yesterday OG tube in place Haddad catheter in place Cr: 1.27 K: 3.5 WBC: 13.1, likely secondary to steroids Echocardiogram with contrast: Overall difficult study. LV: moderate increased size, severe concentric hypertrophy, decreased systolic function, EF 40-45%. IVC: dilated. Focused Exam Lactate Level 03/09/21 20:10: Lactic Acid Level 1.25 Time of Focused Exam: 21:25 Objective Exam Vital Signs Vital Signs Date Time Temp Pulse Resp B/P (MAP) Pulse Ox O2 Delivery O2 Flow Rate FiO2 03/11/21 11:45 36.5 03/11/21 11:43 72 153/93 03/11/21 11:43 93 Mechanical Ventilator 70 03/11/21 11:00 18 70.00 Capillary Refill : Less Than 3 Seconds General Appearance: Other (supine, sedated, intubated) Skin: Other (angioedema of lips) Results/Procedures Lab Laboratory Tests 03/11/21 04:00 Patient resulted labs reviewed. Imaging: Reviewed Imaging Films, Reviewed Imaging Report Assessment/Plan Assessment and Plan Assess & Plan/Chief Complaint Assessment: Acute on chronic respiratory failure secondary to COVID-19 infection and Obesity hypoventilation syndrome Congestive heart failure Sepsis BMI 60.3, Severe obesity Ventilator dependent day 2 Coronary artery disease with NSTEMI s/p 3 stents placement in 2016 Facial cellulitis Angioedema of lips Leukocytosis, likely secondary to steroids Plan: Vancomycin Zosyn Remdesivir - infused Midazolam, Propofol sedation Lovenox - DVT prophylaxis, anticoagulation with elevated D-dimer Protonix and Famotidine - stress ulcer prophylaxis Decadron injection, angioedema treatment Novolog sliding scale Ticagrelor Carvedilol Cardiology following; stated patient will not be taken to custodial laborer due to obesity Ophthalmic ointment - eye care K replacement Critical Care: Ventilator Management KATARZYNA LUNA DO 03/12/21 0522: Subjective Subjective/Events-last exam Patient remains intubated Grave prognosis continues Reviewed all meds labs and imaging Appreciate eICU Objective Exam General Appearance: Other (supine, sedated, intubated) Respiratory: Decreased Breath Sounds Cardiovascular: Regular Rate, Rhythm Assessment/Plan Assessment and Plan Assess & Plan/Chief Complaint Supportive care Prognosis grave Supervisory-Addendum Brief Verification & Attestation Participated in pt care: history, MDM, physical Personally performed: exam, history, MDM, supervision of care Care discussed with: Medical Student Procedures: n/a Results interpretation: Verified all documentation Verification and Attestation of Medical Student E/M Service A medical student performed and documented this service in my presence. I reviewed and verified all information documented by the medical student and made modifications to such information, when appropriate. I personally performed the physical exam and medical decision making. Katarzyna Luna Mar 12, 2021,05:21 LEIGH CIFUENTES Mar 11, 2021 12:25 KATARZYNA LUNA DO Mar 12, 2021 05:22
[2021-03-11 14:16] VITALS: BP 145/87
[2021-03-11 18:31] VITALS: BP 142/86
[2021-03-11] MEDS: ROSUVASTATIN 20 MG (CRESTOR) TABLET PO SCH (20:07)
[2021-03-11 22:08] VITALS: BP 143/82
[2021-03-12 02:10] VITALS: BP 141/85
[2021-03-12] MEDS: RT-ALBUTEROL HFA 8.5 GM INHALER IH SCH ×4 (02:10→21:39)
[2021-03-12] MEDS: PROPOFOL DRIP (ICU) 100 ML IV SCH ×13 (03:05→21:12)
[2021-03-12 03:20] LABS: ABG BASE EXCESS 11.9 MMOL/L (-2.5-2.5); ABG OXYGEN SATURATION 89 % (94-100); ABG PCO2 51 MMHG (35-45); ABG PH 7.46 (7.37-7.43); ABG PO2 55 MMHG (79-93)
[2021-03-12 03:21] LABS: BASOPHILS % (AUTO) 0 % (0-10); EOSINOPHILS % (AUTO) 0 % (0-10); HEMATOCRIT 52 % (40-54); HEMOGLOBIN 16.2 g/dL (13.3-17.7); LYMPHOCYTES # (AUTO) 0.5 10^3/uL (1.0-4.0); LYMPHOCYTES % (AUTO) 7 % (12-44); MEAN CORPUSCULAR HEMOGLOBIN 30 pg (25-34); MEAN CORPUSCULAR HGB CONC 31 g/dL (32-36); MEAN CORPUSCULAR VOLUME 97 fL (80-99); MEAN PLATELET VOLUME 9.6 fL (9.0-12.2); MONOCYTES # (AUTO) 0.3 10^3/uL (0.0-1.0); MONOCYTES % (AUTO) 5 % (0-12); NEUTROPHILS # (AUTO) 5.3 10^3/uL (1.8-7.8); NEUTROPHILS % (AUTO) 87 % (42-75); PLATELET COUNT 241 10^3/uL (130-400); WHITE BLOOD COUNT 6.1 10^3/uL (4.3-11.0)
[2021-03-12] MEDS: CATHETER FLUSH 10 ML SYR IV SCH ×3 (03:22→21:13)
[2021-03-12] MEDS: NOREPINEPHRINE 8 MG/250 ML 250 ML IV SCH ×4 (03:22→22:51)
[2021-03-12 03:24] LABS: ALLENS TEST YES-POS; INSPIRED O2 70%; PATIENT TEMP 36.8; VENTILATOR YES
[2021-03-12 03:31] LABS: POTASSIUM 3.3 MMOL/L (3.6-5.0)
[2021-03-12 03:32] LABS: CALCIUM 8.1 MG/DL (8.5-10.1)
[2021-03-12 03:33] LABS: TOTAL PROTEIN 6.5 GM/DL (6.4-8.2)
[2021-03-12 03:35] LABS: BILIRUBIN,TOTAL 0.5 MG/DL (0.1-1.0)
[2021-03-12 03:37] LABS: CREATININE SERUM 1.01 MG/DL (0.60-1.30); PHOSPHORUS 4.4 MG/DL (2.3-4.7)
[2021-03-12 03:40] LABS: MAGNESIUM 1.9 MG/DL (1.6-2.4)
[2021-03-12] MEDS: POTASSIUM CL 10MEQ/50ML IVPB 50 ML IV SCH ×5 (04:28→08:11)
[2021-03-12] MEDS: KCL 20 MEQ TAB (K-DUR) PO SCH (04:28)
[2021-03-12] MEDS: MAGNESIUM 1 GM/100 ML IVPB 100 ML IV SCH (04:28)
[2021-03-12] MEDS: inSUlin ASPART (NovoLOG) 1 UNIT/0.01 ML (CHARGE PER UNIT) SC SCH ×3 (04:29→18:00)
--- NOTE | 2021-03-12 05:39 | Progress Note - Hospitalist ---
Subjective HPI/CC On Admission Date Seen by Provider: Mar 12, 2021 Time Seen by Provider: 10:30 CC: Respiratory failure HPI: 50 yr old WM with super morbid obesity with past medical history of CAD and congestive heart failure, who presents with worsened hypoxia with periorbital edema consistent with cellulitis. Who presented to the ER by ambulance with lethargy for 9 days was found to be in hypoxic and hypercapnic respiratory failure requiring BiPAP. He failed that it became obtunded and emergently intubated in the ER and central line placed. He had a stent in [address] Funes cardiology consult reports that he is not a cardiac cath candidate because he is too heavy for the table. Vent settings are 500/18/12/70% ABG is 7.40/58/48, adjusting oxygen Vancomycin and Zosyn maintained along with Decadron Very grave prognosis Subjective/Events-last exam Pt the same Intubated Covid-19 progressing Chest x-ray worse Vitals reviewed Grave prognosis Focused Exam Lactate Level Time of Focused Exam: 21:25 Objective Exam Vital Signs Vital Signs Date Time Temp Pulse Resp B/P (MAP) Pulse Ox O2 Delivery O2 Flow Rate FiO2 03/13/21 04:11 35.4 Mechanical Ventilator 80.00 03/13/21 04:00 93 85 03/13/21 02:23 52 18 03/13/21 01:05 142/85 Capillary Refill : Less Than 3 Seconds General Appearance: Chronically ill, Obese, Other (sedated intubated) Respiratory: Decreased Breath Sounds Cardiovascular: Regular Rate, Rhythm Results/Procedures Lab Laboratory Tests 03/13/21 04:15 Patient resulted labs reviewed. Imaging: Reviewed Imaging Films, Reviewed Imaging Report Assessment/Plan Assessment and Plan Assess & Plan/Chief Complaint Assessment: Acute on chronic respiratory failure secondary to COVID-19 infection and Obesity hypoventilation syndrome Congestive heart failure Sepsis BMI 60.3, Severe obesity Ventilator dependent day 2 Coronary artery disease with NSTEMI s/p 3 stents placement in 2016 Facial cellulitis Angioedema of lips Leukocytosis, likely secondary to steroids Plan: Vancomycin Zosyn Remdesivir - infused Midazolam, Propofol sedation Lovenox - DVT prophylaxis, anticoagulation with elevated D-dimer Protonix and Famotidine - stress ulcer prophylaxis Decadron injection, angioedema treatment Novolog sliding scale Ticagrelor Carvedilol Cardiology following; stated patient will not be taken to lab support tech due to obesity Ophthalmic ointment - eye care K replacement Critical Care Ventilator Management DARIUS LUNA DO Mar 12, 2021 05:39
[2021-03-12] MEDS: FUROSEMIDE 40 MG/4 ML INJ (LASIX) IVP SCH ×2 (06:02→18:00)
[2021-03-12 07:38] VITALS: BP 149/86
[2021-03-12] MEDS: FAMOTIDINE 20MG/2ML IV (PEPCID) IVP SCH (08:12)
[2021-03-12] MEDS: PANTOPRAZOLE 40 MG (PROTONIX) VIAL IV SCH (08:13)
[2021-03-12] MEDS: TICAGRELOR 90 MG TABLET (BRILINTA) PO SCH ×2 (08:13→21:11)
[2021-03-12] MEDS: ASPIRIN 81 MG CHEW (CHILDREN'S ASA) PO SCH (08:13)
[2021-03-12] MEDS: PIPERACILLIN SODIUM/TAZOBACTAM 4.5 GM in NS (IVPB) 100 ML IV SCH ×2 (08:15→15:02)
[2021-03-12] MEDS: MIDAZOLAM DRIP PRE-MIX 100 ML IV SCH (08:17)
[2021-03-12] MEDS: VASOPRESSIN INJECTION 20 UNIT in NS (IVPB) 100 ML IV SCH ×2 (08:19→19:42)
[2021-03-12] MEDS: MICONAZOLE 2% POWDER (DESENEX AF) 90 GM TOP SCH ×4 (08:19→21:12)
[2021-03-12] MEDS ORDERED: TROUGH ORDER-PHARMACY XX NR (09:00)
--- NOTE | 2021-03-12 09:17 | Cardiology Progress Note ---
Progress Note-Cardiology Events since last exam Date Seen by Provider: Mar 12, 2021 Time Seen by Provider: 09:14 Events since last exam I am following him due to non-ST elevation myocardial infarction with mild left ventricular dysfunction. He remains intubated and sedated in the intensive care unit. I did not enter his room due to his COVID status. I did visualize the patient from the doorway. Certain portions of this document may have been dictated utilizing voice recognition technology. Inherent to this technology, typographical and grammatical errors may exist. As much as I am diligent to identify and correct these mistakes, some errors may remain in the document. Vitals Last set of Vitals Signs Vital Signs 03/11/21 03/12/21 20:25 09:00 Temp 36.8 Pulse 66 Resp 27 B/P (MAP) 147/87 Pulse Ox 90 O2 Delivery Mechanical Ventilator O2 Flow Rate 100.00 Labs Labs Laboratory Tests 03/12/21 03:05 Exam Vital Signs Vital Signs Date Time Temp Pulse Resp B/P (MAP) Pulse Ox O2 Delivery O2 Flow Rate FiO2 03/12/21 09:00 66 27 147/87 90 Mechanical Ventilator 100.00 03/12/21 08:00 100 03/11/21 20:25 36.8 Physical Exam Due to the patient's COVID status, I viewed the patient from the doorway. General: The patient is intubated and sedated. He is morbidly obese. HENT: Normocephalic. Atraumatic. Respiratory: Symmetrical expansion bilaterally. Skin: There is no pallor. Neurologic: Intubated and sedated. Psychiatric: Not obtainable due to clinical status. Labs Laboratory Tests Test 03/11/21 11:21 03/11/21 18:02 03/11/21 23:40 03/12/21 03:05 Range/Units Glucometer 124 H 144 H 148 H 70-110 MG/DL White Blood Count 6.1 4.3-11.0 10^3/uL Red Blood Count 5.36 4.30-5.52 10^6/uL Hemoglobin 16.2 13.3-17.7 g/dL Hematocrit 52 40-54 % Mean Corpuscular Volume 97 80-99 fL Mean Corpuscular Hemoglobin 30 25-34 pg Mean Corpuscular Hemoglobin Concent 31 L 32-36 g/dL Red Cell Distribution Width 14.6 H 10.0-14.5 % Platelet Count 241 130-400 10^3/uL Mean Platelet Volume 9.6 9.0-12.2 fL Immature Granulocyte % (Auto) 0 % Neutrophils (%) (Auto) 87 H 42-75 % Lymphocytes (%) (Auto) 7 L 12-44 % Monocytes (%) (Auto) 5 0-12 % Eosinophils (%) (Auto) 0 0-10 % Basophils (%) (Auto) 0 0-10 % Neutrophils # (Auto) 5.3 1.8-7.8 10^3/uL Lymphocytes # (Auto) 0.5 L 1.0-4.0 10^3/uL Monocytes # (Auto) 0.3 0.0-1.0 10^3/uL Eosinophils # (Auto) 0.0 0.0-0.3 10^3/uL Basophils # (Auto) 0.0 0.0-0.1 10^3/uL Immature Granulocyte # (Auto) 0.0 0.0-0.1 10^3/uL D-Dimer 0.42 0.00-0.49 UG/ML Blood Gas Puncture Site LEFT RADIAL Blood Gas Patient Temperature 36.8 Arterial Blood pH 7.46 H 7.37-7.43 Arterial Blood Partial Pressure CO2 51 H 35-45 MMHG Arterial Blood Partial Pressure O2 55 L 79-93 MMHG Arterial Blood HCO3 36 H 23-27 MMOL/L Arterial Blood Total CO2 38.0 H 21.0-31.0 MMOL/L Arterial Blood Oxygen Saturation 89 L 94-100 % Arterial Blood Base Excess 11.9 H -2.5-2.5 MMOL/L Ignacio Test YES-POS Blood Gas Ventilator Setting YES Blood Gas Inspired Oxygen 70% Sodium Level 143 135-145 MMOL/L Potassium Level 3.3 L 3.6-5.0 MMOL/L Chloride Level 99 98-107 MMOL/L Carbon Dioxide Level 31 21-32 MMOL/L Anion Gap 13 5-14 MMOL/L Blood Urea Nitrogen 16 7-18 MG/DL Creatinine 1.01 0.60-1.30 MG/DL Estimat Glomerular Filtration Rate 92 BUN/Creatinine Ratio 16 Glucose Level 147 H 70-105 MG/DL Calcium Level 8.1 L 8.5-10.1 MG/DL Corrected Calcium 8.9 8.5-10.1 MG/DL Phosphorus Level 4.4 2.3-4.7 MG/DL Magnesium Level 1.9 1.6-2.4 MG/DL Total Bilirubin 0.5 0.1-1.0 MG/DL Aspartate Amino Transf (AST/SGOT) 22 5-34 U/L Alanine Aminotransferase (ALT/SGPT) 24 0-55 U/L Alkaline Phosphatase 63 40-136 U/L Total Protein 6.5 6.4-8.2 GM/DL Albumin 3.0 L 3.2-4.5 GM/DL Triglycerides Level 167 H <150 MG/DL Test 03/12/21 08:55 Range/Units Vancomycin Level Trough 8.7 L 10.0-20.0 UG/ML Diagnosis/Problems Diagnosis/Problems (1) Non-ST elevation myocardial infarction (NSTEMI), initial care episode Assessment & Plan: He appears to be suffering a non-ST elevation myocardial infarction. There is no evidence of ST elevation on his electrocardiograms. Unfortunately, due to his morbid obesity, his weight is above the limit of our cardiac catheterization table. As such, the best we can do for this patient at this point in time is medical management. I recommend he continue therapeutic dosing of enoxaparin for 5 days total. I restarted ticagrelor that he was supposed to be taking at home and also added low-dose aspirin. I also started low-dose carvedilol and intensive dose statin medication. His clinical course will likely be complicated. (2) Cardiomyopathy Assessment & Plan: His echocardiogram from this admission showed possible mild left ventricular systolic dysfunction. We will initiate guideline directed medical therapy as tolerated by his blood pressure and renal function. Unfortun ately, due to the poor image quality on his echocardiogram related to his body habitus and intubated status, I cannot reliably estimate his ejection fraction. He is on carvedilol. His blood pressure seems to be tolerating this. I will add low-dose lisinopril. (3) Acute HFrEF (heart failure with reduced ejection fraction) Assessment & Plan: His chest x-rays have showed evidence of pulmonary congestion. I started him on IV furosemide twice daily on 03/11. We will need to monitor his renal function closely. I have also ordered carvedilol and lisin opril as outlined above. (4) Primary hypertension Assessment & Plan: His blood pressures have been trending upwards. I started low-dose carvedilol on 03/10. I will slowly increase the dose as tolerated by his blood pressure. I will also add low-dose lisinopril as above. I would avoid rapid up titration of his antihypertensive medication or he may develop iatrogenic hypotension. (5) Noncompliance with medication regimen Assessment & Plan: He has a reported history of noncompliance with his medications. This is probably contributing to his current clinical situation. (6) Morbid obesity Status: Acute Assessment & Plan: Unfortunately, due to his morbid obesity, he is above the weight limit for our cardiac catheterization table as outlined above. ROB CANTOR JR, MD Mar 12, 2021 09:17
[2021-03-12] MEDS ORDERED: lisINopril 5 MG (PRINIVIL) TABLET PO ONE (10:30)
[2021-03-12] MEDS: ENOXAPARIN 300 MG/3 ML (LOVENOX) MULTI-DOSE VIAL SQ SCH ×2 (10:32→21:16)
[2021-03-12] MEDS: VANCOMYCIN 1 GM/NS 250 ML IVPB IV SCH ×4 (11:27→23:03)
[2021-03-12 11:40] VITALS: BP 145/85
--- NOTE | 2021-03-12 12:10 | Tele-ICU Progress Note ---
Subjective Date Seen by a Provider: Mar 12, 2021 Time Seen by a Provider: 08:40 Sepsis Event Evaluation Height, Weight, BMI Height: 6'3.00" Weight: 401lbs. 0.0oz. 181.288346xd; 60.27 BMI Method:Actual Focused Exam Lactate Level 03/09/21 20:10: Lactic Acid Level 1.25 Time of Focused Exam: 21:25 Exam Exam Patient acknowledged, consented, and participated in this virtual visit which was conducted using real time audio/video Vital Signs Date Time Temp Pulse Resp B/P (MAP) Pulse Ox O2 Delivery O2 Flow Rate FiO2 03/12/21 12:00 89 Mechanical Ventilator 100 03/12/21 11:28 61 141/85 03/12/21 11:26 58 141/85 03/12/21 11:00 60 18 143/83 90 Mechanical Ventilator 100.00 03/12/21 10:00 63 18 136/82 90 Mechanical Ventilator 100.00 03/12/21 09:00 66 27 147/87 90 Mechanical Ventilator 100.00 03/12/21 08:19 65 146/85 03/12/21 08:17 66 18 146/85 03/12/21 08:16 66 146/85 03/12/21 08:00 36.4 03/12/21 08:00 89 Mechanical Ventilator 100 03/12/21 08:00 68 17 145/84 88 Mechanical Ventilator 100.00 03/12/21 07:38 69 18 89 100 03/12/21 07:00 59 03/12/21 07:00 61 17 161/94 90 Mechanical Ventilator 80.00 03/12/21 06:55 Mechanical Ventilator 80.00 03/12/21 06:00 60 17 149/89 91 Mechanical Ventilator 75.00 03/12/21 05:28 61 141/85 03/12/21 05:28 61 141/85 03/12/21 05:00 60 18 143/83 91 Mechanical Ventilator 75.00 03/12/21 04:15 Mechanical Ventilator 75.00 03/12/21 04:00 93 Mechanical Ventilator 75 03/12/21 04:00 63 17 144/84 91 Mechanical Ventilator 70.00 03/12/21 03:06 61 141/85 03/12/21 03:05 61 141/85 03/12/21 03:00 61 17 144/85 91 Mechanical Ventilator 70.00 03/12/21 02:10 61 18 91 70 03/12/21 02:00 61 17 141/85 91 Mechanical Ventilator 70.00 03/12/21 01:00 64 18 137/84 91 Mechanical Ventilator 70.00 03/12/21 01:00 64 03/12/21 00:00 66 17 139/83 92 Mechanical Ventilator 70.00 03/11/21 23:59 93 Mechanical Ventilator 70 03/11/21 23:42 68 135/83 03/11/21 23:42 68 135/83 03/11/21 23:00 68 18 135/83 92 Mechanical Ventilator 70.00 03/11/21 22:08 69 18 92 70 03/11/21 22:00 70 18 142/82 92 Mechanical Ventilator 70.00 03/11/21 21:00 68 17 143/85 92 Mechanical Ventilator 70.00 03/11/21 20:27 68 142/86 03/11/21 20:26 68 142/86 03/11/21 20:25 36.8 03/11/21 20:00 67 18 138/82 92 Mechanical Ventilator 70.00 03/11/21 20:00 92 Mechanical Ventilator 70 03/11/21 19:00 70 03/11/21 19:00 68 17 137/81 92 Mechanical Ventilator 70.00 03/11/21 18:45 68 17 142/86 92 Mechanical Ventilator 70.00 03/11/21 18:31 69 18 92 70 03/11/21 18:30 70 17 142/86 92 Mechanical Ventilator 70.00 03/11/21 18:15 70 18 145/89 93 Mechanical Ventilator 70.00 03/11/21 18:00 65 17 143/84 92 Mechanical Ventilator 70.00 03/11/21 17:54 66 17 141/82 03/11/21 17:54 66 141/82 03/11/21 17:53 66 141/82 03/11/21 17:45 66 17 135/81 92 Mechanical Ventilator 70.00 03/11/21 17:30 66 17 141/82 92 Mechanical Ventilator 70.00 03/11/21 17:15 66 17 142/84 92 Mechanical Ventilator 70.00 03/11/21 17:00 66 17 142/84 92 Mechanical Ventilator 70.00 03/11/21 16:45 65 17 138/84 93 Mechanical Ventilator 70.00 03/11/21 16:30 66 18 140/84 93 Mechanical Ventilator 70.00 03/11/21 16:15 66 17 138/84 93 Mechanical Ventilator 70.00 03/11/21 16:00 65 17 139/83 92 Mechanical Ventilator 70.00 03/11/21 16:00 36.9 03/11/21 15:45 65 17 141/86 92 Mechanical Ventilator 70.00 03/11/21 15:31 93 Mechanical Ventilator 70 03/11/21 15:30 68 18 146/87 92 Mechanical Ventilator 70.00 03/11/21 15:15 68 18 146/91 92 Mechanical Ventilator 70.00 03/11/21 15:12 67 145/87 03/11/21 15:12 67 145/87 03/11/21 15:00 65 18 142/87 92 Mechanical Ventilator 70.00 03/11/21 14:45 64 17 137/87 92 Mechanical Ventilator 70.00 03/11/21 14:30 66 17 142/87 92 Mechanical Ventilator 70.00 03/11/21 14:16 67 18 92 70 03/11/21 14:15 67 17 145/87 92 Mechanical Ventilator 70.00 03/11/21 14:00 67 18 146/88 92 Mechanical Ventilator 70.00 03/11/21 13:45 68 17 146/91 92 Mechanical Ventilator 70.00 03/11/21 13:30 67 17 154/90 92 Mechanical Ventilator 70.00 03/11/21 13:15 67 17 144/86 92 Mechanical Ventilator 70.00 03/11/21 13:00 67 17 145/84 92 Mechanical Ventilator 70.00 03/11/21 13:00 67 03/11/21 12:45 68 17 147/88 92 Mechanical Ventilator 70.00 03/11/21 12:30 68 18 145/87 92 Mechanical Ventilator 70.00 03/11/21 12:15 70 17 139/85 92 Mechanical Ventilator 70.00 I & O 03/12/21 07:00 Intake Total 620 ml Output Total 5000 ml Balance -4380 ml Height & Weight Height: 6'3.00" Weight: 401lbs. 0.0oz. 181.824846ex; 60.27 BMI Method:Actual General Appearance: Other (supine, sedated, intubated) Respiratory: Decreased Breath Sounds Cardiovascular: Regular Rate, Rhythm Capillary Refill: Less Than 3 Seconds Peripheral Pulses: 2+ Radial Pulses (R), 2+ Radial Pulses (L) Gastrointestinal: normal bowel sounds, non tender, soft, no organomegaly Skin: Other (angioedema of lips) Results Lab Laboratory Tests 03/11/21 04:00 03/12/21 03:05 Assessment/Plan Assessment/Plan (Tele-ICU Physician , Progress Note ) Available chart/ vitals / labs / Images reviewed Video assessment done using teleICU camera, rest of exam as per RN Discussed with RN , EXAM PER RN Events overnight : Afebrile FiO2 - 100 I/O = 4L Drips: Pressors: , hemodynamically stable Sedation gtt: propofol 50 versed 6 ( RASS -3 ) fent prn VENT SETTINGS and ABG reviewed Not candidate for SBT today REVIEWED Cardiovascular Stability / Sedation Score / FI02/PEEP / ABG / CXR Consultants: rashad Hospital course: 03/09 - COVID PNA , ( post J&J) DIFFICULT INTUBATION 03/10 - peep 12 , 70% 03/11 -peep 12 70% , increased edema of lips and toungue - INCREASED DECARDONE TO 10 q6H 03/12 - 100% peep 20 A/P AHRF / ARDS due to severe COVID19 - Intubated 03/09 in ER - CAN NOT VISUALIZE ETT ON CXR, ASKED RN TO CONFURM WITH RADIOLOGY - PER RADIOLOGY ETT IS IN CORRECT POSITION -AC 18 - 500 ( 6cc/kg =480) 100% peep 12 , PAP 27 - WILL INCREASE PEEP -with body habitus will postpone prone position - check CVP - if elevated will increase diuretics dose -conservative fluid strategy (aim for even or negative fluid balance Difficult intubation in ER - done by anaestesiology -appears to be old tracheostomy scar in place as per noted with redundant scar tissue from previous tracheostomy - in ER c/o facial swelling 5 days ( taken benadryl ) - as per RN exam 03/11 - increased edema of lips and toungue - INCREASED DECARDONE TO 10 q6H [id number]/COVID-19 PNA ( Symptom onset ~? 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 Discussed with RN to reach out if any questions or concerns A total of 35 minutes of critical care time was devoted to this patient today, required to treat and/or prevent further deterioration of critical care condition ( as above ) . ÓSCAR DALLAS MD Mar 12, 2021 12:10
[2021-03-12 14:14] VITALS: BP 140/92
[2021-03-12] MEDS ORDERED: NS IV 500 ML 500 ML ONE (15:10)
[2021-03-12] MEDS: ROSUVASTATIN 20 MG (CRESTOR) TABLET PO SCH (21:11)
[2021-03-12 21:39] VITALS: BP 136/82
[2021-03-13] MEDS: PROPOFOL DRIP (ICU) 100 ML IV SCH ×11 (00:35→22:27)
[2021-03-13] MEDS: PIPERACILLIN SODIUM/TAZOBACTAM 4.5 GM in NS (IVPB) 100 ML IV SCH ×3 (00:37→17:15)
[2021-03-13] MEDS: inSUlin ASPART (NovoLOG) 1 UNIT/0.01 ML (CHARGE PER UNIT) SC SCH ×4 (00:37→18:02)
[2021-03-13] MEDS: MIDAZOLAM DRIP PRE-MIX 100 ML IV SCH ×2 (01:05→17:17)
[2021-03-13] MEDS: RT-ALBUTEROL HFA 8.5 GM INHALER IH SCH ×4 (02:22→21:45)
[2021-03-13 02:23] VITALS: BP 135/83
[2021-03-13 04:31] LABS: ABG BASE EXCESS 10.3 MMOL/L (-2.5-2.5); ABG OXYGEN SATURATION 92 % (94-100); ABG PCO2 52 MMHG (35-45); ABG PH 7.44 (7.37-7.43); ABG PO2 65 MMHG (79-93); ABG TCO2 36.9 MMOL/L (21.0-31.0)
[2021-03-13 04:32] LABS: BASOPHILS % (AUTO) 0 % (0-10); EOSINOPHILS % (AUTO) 0 % (0-10); HEMATOCRIT 53 % (40-54); HEMOGLOBIN 16.6 g/dL (13.3-17.7); LYMPHOCYTES # (AUTO) 0.4 10^3/uL (1.0-4.0); LYMPHOCYTES % (AUTO) 4 % (12-44); MEAN CORPUSCULAR HEMOGLOBIN 31 pg (25-34); MEAN CORPUSCULAR HGB CONC 32 g/dL (32-36); MEAN CORPUSCULAR VOLUME 98 fL (80-99); MEAN PLATELET VOLUME 9.9 fL (9.0-12.2); MONOCYTES # (AUTO) 0.6 10^3/uL (0.0-1.0); MONOCYTES % (AUTO) 7 % (0-12); NEUTROPHILS # (AUTO) 7.7 10^3/uL (1.8-7.8); NEUTROPHILS % (AUTO) 88 % (42-75); PLATELET COUNT 233 10^3/uL (130-400); WHITE BLOOD COUNT 8.7 10^3/uL (4.3-11.0)
[2021-03-13 04:34] LABS: ALLENS TEST YES-POS; INSPIRED O2 80%; PATIENT TEMP 35.4; VENTILATOR YES
[2021-03-13 04:47] LABS: POTASSIUM 3.4 MMOL/L (3.6-5.0)
[2021-03-13 04:49] LABS: CALCIUM 7.9 MG/DL (8.5-10.1)
[2021-03-13 04:50] LABS: TOTAL PROTEIN 6.6 GM/DL (6.4-8.2)
[2021-03-13 04:51] LABS: BILIRUBIN,TOTAL 0.5 MG/DL (0.1-1.0)
[2021-03-13 04:53] LABS: CREATININE SERUM 0.89 MG/DL (0.60-1.30); PHOSPHORUS 4.4 MG/DL (2.3-4.7)
[2021-03-13 04:57] LABS: MAGNESIUM 2.1 MG/DL (1.6-2.4)
[2021-03-13] MEDS: CATHETER FLUSH 10 ML SYR IV SCH ×3 (05:19→21:15)
[2021-03-13] MEDS: POTASSIUM CL 10MEQ/50ML IVPB 50 ML IV SCH ×3 (05:19→06:52)
[2021-03-13] MEDS: KCL 20 MEQ TAB (K-DUR) PO SCH (05:19)
[2021-03-13] MEDS: MAGNESIUM 1 GM/100 ML IVPB 100 ML IV SCH (05:19)
[2021-03-13] MEDS: NOREPINEPHRINE 8 MG/250 ML 250 ML IV SCH ×3 (05:19→18:02)
[2021-03-13] MEDS: VASOPRESSIN INJECTION 20 UNIT in NS (IVPB) 100 ML IV SCH ×2 (05:21→17:16)
--- NOTE | 2021-03-13 05:41 | Progress Note - Hospitalist ---
Subjective HPI/CC On Admission Date Seen by Provider: Mar 13, 2021 Time Seen by Provider: 11:30 CC: Respiratory failure HPI: 50 yr old WM with super morbid obesity with past medical history of CAD and congestive heart failure, who presents with worsened hypoxia with periorbital edema consistent with cellulitis. Who presented to the ER by ambulance with lethargy for 9 days was found to be in hypoxic and hypercapnic respiratory rylie lure requiring BiPAP. He failed that it became obtunded and emergently intubated in the ER and central line placed. He had a stent in [address] Funes cardiology consult reports that he is not a cardiac cath candidate because he is too heavy for the table. Vent settings are 500/18/12/70% ABG is 7.40/58/48, adjusting oxygen Vancomycin and Zosyn maintained along with Decadron Very grave prognosis Subjective/Events-last exam No major changes Central line needs assessed Poor prognosis Focused Exam Time of Focused Exam: 21:25 Objective Exam Vital Signs Vital Signs Date Time Temp Pulse Resp B/P (MAP) Pulse Ox O2 Delivery O2 Flow Rate FiO2 03/14/21 05:44 73 143/85 03/14/21 04:30 36.4 Mechanical Ventilator 75.00 03/14/21 04:00 95 80 03/14/21 02:36 18 Capillary Refill : Less Than 3 Seconds General Appearance: WD/WN, Chronically ill, Obese, Other (intubated and sedated) Respiratory: No Accessory Muscle Use, No Respiratory Distress, Decreased Breath Sounds Cardiovascular: Regular Rate, Rhythm Results/Procedures Lab Patient resulted labs reviewed. Imaging: Reviewed Imaging Films, Reviewed Imaging Report Assessment/Plan Assessment and Plan Assess & Plan/Chief Complaint Assessment: Acute on chronic respiratory failure secondary to COVID-19 infection and Obesity hypoventilation syndrome Congestive heart failure Sepsis BMI 60.3, Severe obesity Ventilator dependent day 2 Coronary artery disease with NSTEMI s/p 3 stents placement in 2016 Facial cellulitis Angioedema of lips Leukocytosis, likely secondary to steroids Plan: Vancomycin Zosyn Remdesivir - infused Midazolam, Propofol sedation Lovenox - DVT prophylaxis, anticoagulation with elevated D-dimer Protonix and Famotidine - stress ulcer prophylaxis Decadron injection, angioedema treatment Novolog sliding scale Ticagrelor Carvedilol Cardiology following; stated patient will not be taken to dental laboratory worker due to obesity Ophthalmic ointment - eye care K replacement 03/13/21: Prognosis poor Critical Care Ventilator Management DARIUS LUNA DO Mar 13, 2021 05:41
[2021-03-13] MEDS: FUROSEMIDE 40 MG/4 ML INJ (LASIX) IVP SCH ×2 (06:52→17:15)
[2021-03-13 07:35] VITALS: BP 159/53
[2021-03-13] MEDS: ASPIRIN 81 MG CHEW (CHILDREN'S ASA) PO SCH (08:33)
[2021-03-13] MEDS: TICAGRELOR 90 MG TABLET (BRILINTA) PO SCH ×2 (08:33→21:15)
[2021-03-13] MEDS: PANTOPRAZOLE 40 MG (PROTONIX) VIAL IV SCH (08:33)
[2021-03-13] MEDS: FAMOTIDINE 20MG/2ML IV (PEPCID) IVP SCH (08:33)
[2021-03-13] MEDS: MICONAZOLE 2% POWDER (DESENEX AF) 90 GM TOP SCH ×4 (08:34→21:15)
[2021-03-13] MEDS: ENOXAPARIN 300 MG/3 ML (LOVENOX) MULTI-DOSE VIAL SQ SCH ×2 (08:34→21:14)
[2021-03-13] MEDS ORDERED: lisINopril 5 MG (PRINIVIL) TABLET PO SCH (09:00)
--- NOTE | 2021-03-13 09:06 | Tele-ICU Progress Note ---
Progress Note video rounds completed 50 y/o male with super obesity (BMI > 50) and COvid PNA Now intubated Settings: 18/500/80/16 Also has NSTEMI, not able to be cath due to oesity issue. On brilinta and asa Overall stable vent settings On famotidine and lovenox Focused Exam Height, Weight, BMI Height: 6'3.00" Weight: 401lbs. 0.0oz. 181.873446xy; 60.27 BMI Method:Actual Time of Focused Exam: 21:25 Laboratory Tests 03/13/21 04:15 SALTY CALDWELL MD Mar 13, 2021 09:06
--- NOTE | 2021-03-13 09:43 | Cardiology Progress Note ---
Subjective Date Seen by Provider: Mar 13, 2021 Time Seen by Provider: 09:38 Subjective/Events-last exam Patient is sedated and intubated. Review of Systems General: Other (Unable to provide review of system) Focused Exam Time of Focused Exam: 21:25 Objective-Cardiology Exam Last Set of Vital Signs Vital Signs 03/13/21 03/13/21 03/13/21 08:00 08:41 09:00 Temp 36.0 Pulse 63 Resp 18 B/P (MAP) 173/102 Pulse Ox 95 O2 Delivery Mechanical Ventilator O2 Flow Rate 85.00 FiO2 80 I&O Intake and Output 03/13/21 00:00 Intake Total 814 ml Output Total 2725 ml Balance -1911 ml IV Total 400 ml Tube Feeding 354 ml Other 60 ml Output Urine Total 2725 ml # Voids 1 # Bowel Movements 2 General: Other (Sedated and intubated) HEENT: Atraumatic Neck: Supple Lungs: Normal Air Movement Heart: Regular Rate, Normal S1, Normal S2 Abdomen: Normal Bowel Sounds Extremities: No Clubbing Skin: No Rashes, No Breakdown Neuro: Other (Sedated and intubated) Psych/Mental Status: Other (Sedated and intubated) Results Lab Laboratory Tests 03/13/21 04:15 A/P-Cardiology Admission Diagnosis COVID-19 pneumonia Acute respiratory failure Non-ST elevation myocardial infarction Hypertension Assessment/Plan COVID-19 pneumonia, acute respiratory failure, managed by primary care physician Non-ST elevation myocardial infarction, conservative management was recommended, has been followed by Dr. Funes. Continue to monitor Congestive heart failure, acute on chronic left ventricular systolic dysfunction, responding to diuretics. Hypertension, poorly controlled. Maintained on Coreg 6.25 mg twice daily, was started on lisinopril 2.5 mg, I will increase the dose to 5 mg daily and give hi m additional dose today and evaluate tolerance and response Acute respiratory failure, ventilator dependent, managed by primary care physician Morbid obesity, BMI 60 History of noncompliance with medications. LADAN AKINS MD Mar 13, 2021 09:43
[2021-03-13 10:23] VITALS: BP 148/88
--- NOTE | 2021-03-13 11:08 | Diagnostic Imaging Report ---
INDICATION: Line placement. Comparison made with prior examination from 03/10/2021. FINDINGS: There is cardiomegaly. There is some mild venous congestion. ET and NG tubes appear to be in satisfactory position. Right internal jugular central venous catheter has its tip at the junction of the internal jugular vein and subclavian vein. IMPRESSION: Cardiomegaly and mild venous congestion. Central venous catheter is at the junction of the internal jugular vein and subclavian vein. Dictated by: Dictated on workstation # [id number]
[2021-03-13] MEDS: lisINopril 5 MG (PRINIVIL) TABLET PO SCH (11:18)
[2021-03-13] MEDS: VANCOMYCIN 1 GM/NS 250 ML IVPB IV SCH ×4 (11:18→22:27)
[2021-03-13 15:17] VITALS: BP 121/74
[2021-03-13 18:50] VITALS: BP 125/80
[2021-03-13] MEDS: ROSUVASTATIN 20 MG (CRESTOR) TABLET PO SCH (21:14)
[2021-03-13 21:45] VITALS: BP 128/78
[2021-03-14] MEDS: inSUlin ASPART (NovoLOG) 1 UNIT/0.01 ML (CHARGE PER UNIT) SC SCH ×4 (00:56→18:52)
[2021-03-14] MEDS: PIPERACILLIN SODIUM/TAZOBACTAM 4.5 GM in NS (IVPB) 100 ML IV SCH ×3 (00:59→17:14)
[2021-03-14] MEDS: NOREPINEPHRINE 8 MG/250 ML 250 ML IV SCH ×4 (01:20→20:43)
[2021-03-14] MEDS: PROPOFOL DRIP (ICU) 100 ML IV SCH ×10 (01:42→22:23)
[2021-03-14 02:36] VITALS: BP 124/71
[2021-03-14] MEDS: RT-ALBUTEROL HFA 8.5 GM INHALER IH SCH ×4 (02:36→21:39)
[2021-03-14] MEDS: VASOPRESSIN INJECTION 20 UNIT in NS (IVPB) 100 ML IV SCH ×2 (04:28→15:25)
[2021-03-14] MEDS: FUROSEMIDE 40 MG/4 ML INJ (LASIX) IVP SCH ×2 (05:45→17:14)
[2021-03-14 06:12] LABS: ABG BASE EXCESS 11.8 MMOL/L (-2.5-2.5); ABG OXYGEN SATURATION 92 % (94-100); ABG PCO2 60 MMHG (35-45); ABG PH 7.41 (7.37-7.43); ABG PO2 73 MMHG (79-93); ABG TCO2 38.9 MMOL/L (21.0-31.0)
[2021-03-14 06:13] LABS: ALLENS TEST YES-POS; BASOPHILS % (AUTO) 0 % (0-10); EOSINOPHILS % (AUTO) 0 % (0-10); HEMATOCRIT 54 % (40-54); HEMOGLOBIN 16.9 g/dL (13.3-17.7); LYMPHOCYTES # (AUTO) 1.4 10^3/uL (1.0-4.0); LYMPHOCYTES % (AUTO) 13 % (12-44); MEAN CORPUSCULAR HEMOGLOBIN 31 pg (25-34); MEAN CORPUSCULAR HGB CONC 31 g/dL (32-36); MEAN CORPUSCULAR VOLUME 98 fL (80-99); MEAN PLATELET VOLUME 10.2 fL (9.0-12.2); MONOCYTES # (AUTO) 1.1 10^3/uL (0.0-1.0); MONOCYTES % (AUTO) 10 % (0-12); NEUTROPHILS # (AUTO) 8.5 10^3/uL (1.8-7.8); NEUTROPHILS % (AUTO) 77 % (42-75); PLATELET COUNT 222 10^3/uL (130-400); WHITE BLOOD COUNT 11.1 10^3/uL (4.3-11.0)
[2021-03-14 06:14] LABS: INSPIRED O2 75%; PATIENT TEMP 36.4; VENTILATOR NO
[2021-03-14 06:32] LABS: BILIRUBIN,TOTAL 0.4 MG/DL (0.1-1.0); CALCIUM 7.9 MG/DL (8.5-10.1); CREATININE SERUM 0.8 MG/DL (0.60-1.30); MAGNESIUM 2.1 MG/DL (1.6-2.4); PHOSPHORUS 3.4 MG/DL (2.3-4.7); POTASSIUM 3.1 MMOL/L (3.6-5.0); TOTAL PROTEIN 6.3 GM/DL (6.4-8.2)
--- NOTE | 2021-03-14 06:43 | Progress Note - Hospitalist ---
Subjective HPI/CC On Admission Date Seen by Provider: Mar 14, 2021 Time Seen by Provider: 12:00 CC: Respiratory failure HPI: 50 yr old WM with super morbid obesity with past medical history of CAD and congestive heart failure, who presents with worsened hypoxia with periorbital edema consistent with cellulitis. Who presented to the ER by ambulance with lethargy for 9 days was found to be in hypoxic and hypercapnic respiratory failure requiring BiPAP. He failed that it became obtunded and emergently intubated in the ER and central line placed. He had a stent in [address] Funes cardiology consult reports that he is not a cardiac cath candidate because he is too heavy for the table. Vent settings are 500/18/12/70% ABG is 7.40/58/48, adjusting oxygen Vancomycin and Zosyn maintained along with Decadron Very grave prognosis Subjective/Events-last exam No significant change Checked meds labs Sedation continues Prognosis poor Focused Exam Time of Focused Exam: 21:25 Objective Exam Vital Signs Vital Signs Date Time Temp Pulse Resp B/P (MAP) Pulse Ox O2 Delivery O2 Flow Rate FiO2 03/15/21 05:00 68 18 140/81 96 Mechanical Ventilator 60.00 03/15/21 04:00 36.5 03/15/21 04:00 60 Capillary Refill : Less Than 3 Seconds General Appearance: Chronically ill, Obese, Other (Sedated and intubated) Respiratory: Decreased Breath Sounds Cardiovascular: Regular Rate, Rhythm Results/Procedures Lab Laboratory Tests 03/14/21 05:30 03/15/21 04:00 Patient resulted labs reviewed. Imaging: Reviewed Imaging Films, Reviewed Imaging Report Assessment/Plan Assessment and Plan Assess & Plan/Chief Complaint Assessment: Acute on chronic respiratory failure secondary to COVID-19 infection and Obesity hypoventilation syndrome Congestive heart failure Sepsis BMI 60.3, Severe obesity Ventilator dependent day 2 Coronary artery disease with NSTEMI s/p 3 stents placement in 2016 Facial cellulitis Angioedema of lips Leukocytosis, likely secondary to steroids Plan: Vancomycin Zosyn Remdesivir - infused Midazolam, Propofol sedation Lovenox - DVT prophylaxis, anticoagulation with elevated D-dimer Protonix and Famotidine - stress ulcer prophylaxis Decadron injection, angioedema treatment Novolog sliding scale Ticagrelor Carvedilol Cardiology following; 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
[2021-03-14] MEDS: MAGNESIUM 1 GM/100 ML IVPB 100 ML IV SCH (06:49)
[2021-03-14] MEDS: CATHETER FLUSH 10 ML SYR IV SCH ×3 (06:49→22:20)
[2021-03-14] MEDS: POTASSIUM CL 10MEQ/50ML IVPB 50 ML IV SCH ×4 (06:49→09:10)
[2021-03-14] MEDS: KCL 20 MEQ TAB (K-DUR) PO SCH (06:50)
[2021-03-14 07:43] VITALS: BP 124/81
[2021-03-14] MEDS: TICAGRELOR 90 MG TABLET (BRILINTA) PO SCH ×2 (08:15→21:08)
[2021-03-14] MEDS: lisINopril 5 MG (PRINIVIL) TABLET PO SCH (08:15)
[2021-03-14] MEDS: FAMOTIDINE 20MG/2ML IV (PEPCID) IVP SCH (08:15)
[2021-03-14] MEDS: ASPIRIN 81 MG CHEW (CHILDREN'S ASA) PO SCH (08:15)
[2021-03-14] MEDS: PANTOPRAZOLE 40 MG (PROTONIX) VIAL IV SCH (08:15)
[2021-03-14] MEDS: MICONAZOLE 2% POWDER (DESENEX AF) 90 GM TOP SCH ×4 (08:16→21:09)
[2021-03-14] MEDS: ENOXAPARIN 300 MG/3 ML (LOVENOX) MULTI-DOSE VIAL SQ SCH ×2 (08:16→21:08)
[2021-03-14] MEDS: MIDAZOLAM DRIP PRE-MIX 100 ML IV SCH ×2 (09:22→22:24)
--- NOTE | 2021-03-14 09:23 | Cardiology Progress Note ---
Subjective Date Seen by Provider: Mar 14, 2021 Time Seen by Provider: 09:20 Subjective/Events-last exam Patient is sedated and intubated, laying down in bed. Review of Systems General: Other (Unable to provide review of system) Focused Exam Time of Focused Exam: 21:25 Objective-Cardiology Exam Last Set of Vital Signs Vital Signs 03/14/21 03/14/21 03/14/21 07:43 08:00 09:00 Temp 36.9 Pulse 63 Resp 18 B/P (MAP) 125/85 Pulse Ox 97 O2 Delivery Mechanical Ventilator O2 Flow Rate 75.00 FiO2 75 I&O Intake and Output0 03/14/21 00:00 Intake Total 4874 ml Output Total 3975 ml Balance 899 ml IV Total 2770 ml Tube Feeding 929 ml Other 1175 ml Output Urine Total 3975 ml General: Other (Sedated and intubated) HEENT: Atraumatic Neck: Supple Lungs: Normal Air Movement Heart: Regular Rate, Normal S1, Normal S2 Abdomen: Normal Bowel Sounds Extremities: No Clubbing Skin: No Rashes, No Breakdown Neuro: Other (Sedated and intubated) Psych/Mental Status: Other (Sedated and intubated) Results Lab Laboratory Tests 03/14/21 05:30 A/P-Cardiology Admission Diagnosis COVID-19 pneumonia Acute respiratory failure Non-ST elevation myocardial infarction Hypertension Assessment/Plan COVID-19 pneumonia, acute respiratory failure, ventilator dependent, maintained on PEEP of 14, managed by primary care physician Non-ST elevation myocardial infarction, conservative management was recommended, has been followed by Dr. Funes. Continue to monitor Congestive heart failure, acute on chronic left ventricular systolic dysfunction, responding to diuretics. Maintained on Lasix 80 mg twice daily Hypertension, blood pressure is better controlled today. Continue to monitor Maintained on Coreg 6.25 twice daily Lisinopril was increased to 5 mg on March 13, 2021 Acute respiratory failure, ventilator dependent, managed by primary care physician Morbid obesity, BMI 60 History of noncompliance with medications. LADAN AKINS MD Mar 14, 2021 09:23
--- NOTE | 2021-03-14 10:09 | Tele-ICU Progress Note ---
Subjective Date Seen by a Provider: Mar 14, 2021 Time Seen by a Provider: 08:35 Subjective/Events-last exam This virtual visit was conducted using real time audio/video. Thank you for asking us to see this patient for respiratory insufficiency due to Covid pna. Also NSTEMI, htn. Recent events: PEEP down to 14. PE: Morbidly obese. Sedated on vent. VSS. O2 sat 97% on 80/+14. HEENT: No obvious masses, adenopathy or JVD. Chest: clear to auscultation. Diminished. CV: RRR S1 S2 No murmur or added sounds. Abd: Non-tender. Bowel sounds Y. : Unremarkable. Haddad Y. BROTH SETTER/psychiatric: Grossly intact. No obvious focal findings. Extremities: 2+ edema. Capillary refill < 3 seconds. Skin: periorbital swelling. Results: Elevated BUN 26, BG 120, WCC 11.1. Decreased K 3.1. B.41/60/73. CXR: congested. Available chart/ vitals / labs / images reviewed. Video assessment done using teleICU camera, rest of exam as per RN. A/P: Respiratory insufficiency: Continue present management with vent. Wean FiO2 as juan.Cont alb., precedex, Dex. Monitor for increasing oxygenation needs. Critical Care: critically ill patient. Cont. Brilinta, ASA, pepcid, zully., vanco., zosyn, SSI, coreg, lasix, statin. Replace K. Discussed with ANNALISE Patino. Asked RN to reach out to eICU if any questions or concerns later. Time spent with patient/coordination of care with other health professionals (mins): 30. Sepsis Event Evaluation Height, Weight, BMI Height: 6'3.00" Weight: 401lbs. 0.0oz. 181.477219wi; 60.27 BMI Method:Actual Focused Exam Time of Focused Exam: 21:25 Exam Exam Patient acknowledged, consented, and participated in this virtual visit which was conducted using real time audio/video Vital Signs Date Time Temp Pulse Resp B/P (MAP) Pulse Ox O2 Delivery O2 Flow Rate FiO2 03/14/21 09:22 63 18 125/85 03/14/21 09:22 63 125/85 03/14/21 09:22 63 125/85 03/14/21 09:00 63 18 125/85 97 Mechanical Ventilator 75.00 03/14/21 08:00 64 18 127/80 98 Mechanical Ventilator 75.00 03/14/21 08:00 36.9 03/14/21 07:43 77 18 95 75 03/14/21 07:00 64 18 119/79 98 Mechanical Ventilator 75.00 03/14/21 07:00 67 03/14/21 06:00 66 18 129/82 97 Mechanical Ventilator 75.00 03/14/21 05:44 73 143/85 03/14/21 05:00 60 18 140/82 97 Mechanical Ventilator 75.00 03/14/21 04:30 36.4 Mechanical Ventilator 75.00 03/14/21 04:00 55 18 127/76 96 Mechanical Ventilator 80.00 03/14/21 04:00 95 Mechanical Ventilator 80 03/14/21 03:00 53 18 121/68 97 Mechanical Ventilator 80.00 03/14/21 02:36 53 18 98 80 03/14/21 02:00 51 18 117/72 96 Mechanical Ventilator 80.00 03/14/21 01:42 51 124/78 03/14/21 01:00 50 03/14/21 01:00 50 18 118/73 95 Mechanical Ventilator 80.00 03/14/21 00:00 49 18 122/77 94 Mechanical Ventilator 80.00 03/14/21 00:00 93 Mechanical Ventilator 80 03/13/21 23:34 35.3 03/13/21 23:00 50 18 132/82 95 Mechanical Ventilator 80.00 03/13/21 22:27 55 134/80 03/13/21 22:00 51 18 134/80 94 Mechanical Ventilator 80.00 03/13/21 21:45 59 18 94 80 03/13/21 21:00 49 18 117/70 93 Mechanical Ventilator 80.00 03/13/21 20:00 36.0 03/13/21 20:00 51 18 118/72 94 Mechanical Ventilator 80.00 03/13/21 20:00 93 Mechanical Ventilator 80 03/13/21 19:00 52 03/13/21 19:00 52 18 125/75 93 Mechanical Ventilator 80.00 03/13/21 18:50 50 18 93 80 03/13/21 18:46 49 134/80 03/13/21 18:46 49 134/80 03/13/21 18:00 49 18 134/80 94 Mechanical Ventilator 85.00 03/13/21 17:17 48 22 135/80 03/13/21 17:00 48 22 135/80 95 Mechanical Ventilator 85.00 03/13/21 16:40 36.4 03/13/21 16:30 92 Mechanical Ventilator 80 03/13/21 16:00 52 18 127/80 95 Mechanical Ventilator 85.00 03/13/21 15:33 53 121/74 03/13/21 15:33 53 121/74 03/13/21 15:17 53 18 96 80 03/13/21 15:00 53 18 121/74 94 Mechanical Ventilator 85.00 03/13/21 14:00 53 18 126/79 94 Mechanical Ventilator 85.00 03/13/21 13:00 55 18 124/70 93 Mechanical Ventilator 85.00 03/13/21 12:57 56 03/13/21 12:00 55 18 141/82 94 Mechanical Ventilator 85.00 03/13/21 12:00 36.3 03/13/21 11:51 92 Mechanical Ventilator 80 03/13/21 11:00 55 18 142/84 93 Mechanical Ventilator 85.00 03/13/21 10:23 28 18 94 80 I & O 03/14/21 07:00 Intake Total 4420 ml Output Total 3750 ml Balance 670 ml Height & Weight Height: 6'3.00" Weight: 401lbs. 0.0oz. 181.129975qg; 60.27 BMI Method:Actual General Appearance: WD/WN, Chronically ill, Obese, Other (intubated and sedated) Respiratory: No Accessory Muscle Use, No Respiratory Distress, Decreased Breath Sounds Cardiovascular: Regular Rate, Rhythm Capillary Refill: Less Than 3 Seconds Peripheral Pulses: 2+ Radial Pulses (R), 2+ Radial Pulses (L) Gastrointestinal: normal bowel sounds, non tender, soft, no organomegaly Skin: Other (angioedema of lips) Results Lab Laboratory Tests 03/13/21 04:15 03/14/21 05:30 Assessment/Plan Assessment/Plan See free text. Critical Care: Ventilator Management RADHA BRUNSON MD Mar 14, 2021 10:08
[2021-03-14 11:29] VITALS: BP 133/87
[2021-03-14] MEDS: VANCOMYCIN 1 GM/NS 250 ML IVPB IV SCH ×4 (11:44→22:20)
[2021-03-14 15:38] VITALS: BP 136/88
[2021-03-14] MEDS ORDERED: DEXTROSE 50% 50 ML (IMS) SYR ONE (18:48)
[2021-03-14] MEDS ORDERED: DEXTROSE 50% 50 ML (IMS) SYR IV ONE (19:00)
[2021-03-14] MEDS ORDERED: D5 LR IV SOLUTION 1,000 ML IV ONE (20:58)
[2021-03-14] MEDS: D5 LR IV SOLUTION 1,000 ML IV SCH (21:08)
[2021-03-14] MEDS: ROSUVASTATIN 20 MG (CRESTOR) TABLET PO SCH (21:08)
[2021-03-14 21:39] VITALS: BP 131/89
[2021-03-15] MEDS: inSUlin ASPART (NovoLOG) 1 UNIT/0.01 ML (CHARGE PER UNIT) SC SCH ×5 (00:06→23:12)
[2021-03-15 02:32] VITALS: BP 131/89
[2021-03-15] MEDS: VASOPRESSIN INJECTION 20 UNIT in NS (IVPB) 100 ML IV SCH ×3 (02:47→23:13)
[2021-03-15] MEDS: NOREPINEPHRINE 8 MG/250 ML 250 ML IV SCH ×4 (03:03→20:07)
[2021-03-15] MEDS: PROPOFOL DRIP (ICU) 100 ML IV SCH ×5 (03:46→23:13)
[2021-03-15 04:26] LABS: BASOPHILS % (AUTO) 0 % (0-10); EOSINOPHILS # (AUTO) 0.1 10^3/uL (0.0-0.3); EOSINOPHILS % (AUTO) 1 % (0-10); HEMATOCRIT 54 % (40-54); HEMOGLOBIN 16.4 g/dL (13.3-17.7); LYMPHOCYTES # (AUTO) 2.3 10^3/uL (1.0-4.0); LYMPHOCYTES % (AUTO) 21 % (12-44); MEAN CORPUSCULAR HEMOGLOBIN 30 pg (25-34); MEAN CORPUSCULAR HGB CONC 31 g/dL (32-36); MEAN CORPUSCULAR VOLUME 98 fL (80-99); MEAN PLATELET VOLUME 10.1 fL (9.0-12.2); MONOCYTES # (AUTO) 1.4 10^3/uL (0.0-1.0); MONOCYTES % (AUTO) 13 % (0-12); NEUTROPHILS # (AUTO) 7.3 10^3/uL (1.8-7.8); NEUTROPHILS % (AUTO) 66 % (42-75); PLATELET COUNT 211 10^3/uL (130-400); WHITE BLOOD COUNT 11.2 10^3/uL (4.3-11.0)
[2021-03-15 04:27] LABS: ABG BASE EXCESS 11.6 MMOL/L (-2.5-2.5); ABG OXYGEN SATURATION 95 % (94-100); ABG PCO2 55 MMHG (35-45); ABG PH 7.44 (7.37-7.43); ABG PO2 81 MMHG (79-93); ABG TCO2 38.1 MMOL/L (21.0-31.0)
[2021-03-15 04:28] LABS: ALLENS TEST YES-POS; INSPIRED O2 60%; PATIENT TEMP 36.5; VENTILATOR YES
[2021-03-15 04:39] LABS: ALBUMIN 2.9 GM/DL (3.2-4.5); BILIRUBIN,TOTAL 0.5 MG/DL (0.1-1.0); CALCIUM 7.9 MG/DL (8.5-10.1); CREATININE SERUM 0.87 MG/DL (0.60-1.30); PHOSPHORUS 2.6 MG/DL (2.3-4.7); TOTAL PROTEIN 6.4 GM/DL (6.4-8.2)
[2021-03-15] MEDS: KCL 20 MEQ TAB (K-DUR) PO SCH (05:06)
[2021-03-15] MEDS: POTASSIUM CL 10MEQ/50ML IVPB 50 ML IV SCH ×7 (05:06→16:04)
[2021-03-15] MEDS: MAGNESIUM 1 GM/100 ML IVPB 100 ML IV SCH (05:06)
[2021-03-15] MEDS: CATHETER FLUSH 10 ML SYR IV SCH ×3 (05:06→20:06)
[2021-03-15] MEDS: FUROSEMIDE 40 MG/4 ML INJ (LASIX) IVP SCH ×2 (06:20→16:05)
[2021-03-15 07:26] VITALS: BP 121/78
[2021-03-15] MEDS: lisINopril 5 MG (PRINIVIL) TABLET PO SCH (08:02)
[2021-03-15] MEDS: TICAGRELOR 90 MG TABLET (BRILINTA) PO SCH ×2 (08:03→20:05)
[2021-03-15] MEDS: MICONAZOLE 2% POWDER (DESENEX AF) 90 GM TOP SCH ×4 (08:03→20:05)
[2021-03-15] MEDS: ENOXAPARIN 300 MG/3 ML (LOVENOX) MULTI-DOSE VIAL SQ SCH (08:03)
[2021-03-15] MEDS: ASPIRIN 81 MG CHEW (CHILDREN'S ASA) PO SCH (08:03)
--- NOTE | 2021-03-15 08:51 | Cardiology Progress Note ---
Progress Note-Cardiology Events since last exam Date Seen by Provider: Mar 15, 2021 Time Seen by Provider: 08:50 Events since last exam I am following him due to probable non-ST elevation myocardial infarction with superimposed cardiomyopathy and heart failure. This is on top of Covid infection. He remains intubated and sedated. FiO2 is 60% and PEEP is 12. These settings have improved. I did not enter the patient's room due to his COVID status but did view him from the doorway. I also spoke with his nurse of today. Certain portions of this document may have been dictated utilizing voice recognition technology. Inherent to this technology, typographical and grammatical errors may exist. As much as I am diligent to identify and correct these mistakes, some errors may remain in the document. Vitals Last set of Vitals Signs Vital Signs 03/15/21 03/15/21 03/15/21 07:26 07:59 08:00 Temp 37.0 Pulse 69 Resp 18 B/P (MAP) 124/72 Pulse Ox 93 O2 Delivery Mechanical Ventilator O2 Flow Rate 60.00 FiO2 60 Labs Labs Laboratory Tests 03/15/21 04:00 Exam Vital Signs Vital Signs Date Time Temp Pulse Resp B/P (MAP) Pulse Ox O2 Delivery O2 Flow Rate FiO2 03/15/21 08:00 69 18 124/72 93 Mechanical Ventilator 60.00 03/15/21 07:59 37.0 03/15/21 07:26 60 Physical Exam Due to the patient's COVID status, I viewed the patient from the doorway. He is morbidly obese. General: The patient is intubated and sedated. HENT: Normocephalic. Atraumatic. Respiratory: Symmetrical expansion bilaterally. Skin: There is no pallor. Neurologic: Intubated and sedated. Psychiatric: Not obtainable due to clinical status. Labs Laboratory Tests Test 03/14/21 11:49 03/14/21 18:42 03/15/21 00:00 03/15/21 04:00 Range/Units Glucometer 97 68 L 87 70-110 MG/DL White Blood Count 11.2 H 4.3-11.0 10^3/uL Red Blood Count 5.46 4.30-5.52 10^6/uL Hemoglobin 16.4 13.3-17.7 g/dL Hematocrit 54 40-54 % Mean Corpuscular Volume 98 80-99 fL Mean Corpuscular Hemoglobin 30 25-34 pg Mean Corpuscular Hemoglobin Concent 31 L 32-36 g/dL Red Cell Distribution Width 14.5 10.0-14.5 % Platelet Count 211 130-400 10^3/uL Mean Platelet Volume 10.1 9.0-12.2 fL Immature Granulocyte % (Auto) 1 % Neutrophils (%) (Auto) 66 42-75 % Lymphocytes (%) (Auto) 21 12-44 % Monocytes (%) (Auto) 13 H 0-12 % Eosinophils (%) (Auto) 1 0-10 % Basophils (%) (Auto) 0 0-10 % Neutrophils # (Auto) 7.3 1.8-7.8 10^3/uL Lymphocytes # (Auto) 2.3 1.0-4.0 10^3/uL Monocytes # (Auto) 1.4 H 0.0-1.0 10^3/uL Eosinophils # (Auto) 0.1 0.0-0.3 10^3/uL Basophils # (Auto) 0.0 0.0-0.1 10^3/uL Immature Granulocyte # (Auto) 0.1 0.0-0.1 10^3/uL Blood Gas Puncture Site RIGHT RADIAL Blood Gas Patient Temperature 36.5 Arterial Blood pH 7.44 H 7.37-7.43 Arterial Blood Partial Pressure CO2 55 H 35-45 MMHG Arterial Blood Partial Pressure O2 81 79-93 MMHG Arterial Blood HCO3 36 H 23-27 MMOL/L Arterial Blood Total CO2 38.1 H 21.0-31.0 MMOL/L Arterial Blood Oxygen Saturation 95 94-100 % Arterial Blood Base Excess 11.6 H -2.5-2.5 MMOL/L Ignacio Test YES-POS Blood Gas Ventilator Setting YES Blood Gas Inspired Oxygen 60% Sodium Level 145 135-145 MMOL/L Potassium Level 3.0 L 3.6-5.0 MMOL/L Chloride Level 101 98-107 MMOL/L Carbon Dioxide Level 29 21-32 MMOL/L Anion Gap 15 H 5-14 MMOL/L Blood Urea Nitrogen 28 H 7-18 MG/DL Creatinine 0.87 0.60-1.30 MG/DL Estimat Glomerular Filtration Rate 106 BUN/Creatinine Ratio 32 Glucose Level 131 H 70-105 MG/DL Calcium Level 7.9 L 8.5-10.1 MG/DL Corrected Calcium 8.8 8.5-10.1 MG/DL Phosphorus Level 2.6 2.3-4.7 MG/DL Magnesium Level 2.0 1.6-2.4 MG/DL Total Bilirubin 0.5 0.1-1.0 MG/DL Aspartate Amino Transf (AST/SGOT) 30 5-34 U/L Alanine Aminotransferase (ALT/SGPT) 34 0-55 U/L Alkaline Phosphatase 60 40-136 U/L Total Protein 6.4 6.4-8.2 GM/DL Albumin 2.9 L 3.2-4.5 GM/DL Diagnosis/Problems Diagnosis/Problems (1) Non-ST elevation myocardial infarction (NSTEMI), initial care episode Assessment & Plan: He appears to have suffered a non-ST elevation myocardial infarction. There was no evidence of ST elevation on his electrocardiograms. Unfortunately, due to his morbid obesity, his weight is above the limit of our cardiac catheterization table. As such, the best we can do for this patient at this point in time is medical management. He has received therapeutic dosing of enoxaparin for 5 days. I will change this over to prophylactic dosing. I rest arted ticagrelor that he was supposed to be taking at home and also added low- dose aspirin. I also started low-dose carvedilol and intensive dose statin medication. His clinical course will likely be complicated due to the superimposed Covid infection. (2) Cardiomyopathy Assessment & Plan: His echocardiogram from this admission showed possible mild left ventricular systolic dysfunction but was a very technically difficult study. We will initiate guideline directed medical therapy as tolerated by his blood pressure and renal function. He is on carvedilol and lisinopril. (3) Acute HFrEF (heart failure with reduced ejection fraction) Assessment & Plan: His chest x-rays have showed evidence of pulmonary congestion. I started him on IV furosemide twice daily on 03/11. We will need to monitor his renal function closely. I have also ordered carvedilol and lisinopril as outlined above. (4) Primary hypertension Assessment & Plan: His blood pressures have been trending upwards. I started low-dose carvedilol on 03/10. I will slowly increase the dose as tolerated by his blood pressure. I also added low-dose lisinopril as above. I would avoid rapid up titration of his antihypertensive medication or he may develop iatrogenic hypotension. (5) Noncompliance with medication regimen Assessment & Plan: He has a reported history of noncompliance with his medications. This is probably contributing to his current clinical situation. (6) Morbid obesity Status: Acute Assessment & Plan: Unfortunately, due to his morbid obesity, he is above the weight limit for our cardiac catheterization table as outlined above. ROB CANTOR JR, MD Mar 15, 2021 08:51
[2021-03-15] MEDS: FAMOTIDINE 20MG/2ML IV (PEPCID) IVP SCH (09:21)
[2021-03-15] MEDS: PANTOPRAZOLE 40 MG (PROTONIX) VIAL IV SCH (09:21)
--- NOTE | 2021-03-15 09:24 | Diagnostic Imaging Report ---
INDICATION: COVID 19 positive. TIME OF EXAM: 9:05 AM Correlation is made with prior chest from 03/13/2021. The heart is enlarged. Enlarged heart does obscure a large portion of the left hemithorax. No definite infiltrates are seen. Pulmonary vascularity is normal. No definite effusion or pneumothorax is seen. There are postoperative changes lower cervical spine. Patient does have an ET tube and NG tube however these are obscured on this study. Study is somewhat compromised due to patient large body habitus. In addition, the right IJ line appears to be pulled back and has the tip in the supraclavicular region on the right. IMPRESSION: 1. Cardiomegaly. No acute cardiopulmonary process is detected. 2. Lines and catheters are somewhat difficult to visualize on this study. Right IJ line appears be pulled back. Dictated by: Dictated on workstation # [id number]
[2021-03-15] MEDS: D5 LR IV SOLUTION 1,000 ML IV SCH ×2 (09:32→11:17)
--- NOTE | 2021-03-15 09:37 | Progress Note ---
Subjective Subjective/Events-last exam Intubated, afebrile. Focused Exam Time of Focused Exam: 21:25 Objective Exam Last Set of Vital Signs Vital Signs Date Time Temp Pulse Resp B/P (MAP) Pulse Ox O2 Delivery O2 Flow Rate FiO2 03/15/21 09:31 69 124/72 03/15/21 09:00 21 95 Mechanical Ventilator 60.00 03/15/21 07:59 37.0 03/15/21 07:26 60 Capillary Refill : Less Than 3 Seconds I&O Intake and Output 03/15/21 00:00 Intake Total 3635 ml Output Total 3050 ml Balance 585 ml Intake Oral 0 ml IV Total 1370 ml Tube Feeding 1210 ml Other 1055 ml Output Urine Total 3050 ml General: Other (intubated, obese) Lungs: Other (ronchi) Heart: Regular Rate, No Murmurs Abdomen: Normal Bowel Sounds Extremities: No Edema Results/Procedures Lab Laboratory Tests 03/14/21 11:49: Glucometer 97 03/14/21 18:42: Glucometer 68L 03/15/21 00:00: Glucometer 87 03/15/21 04:00: White Blood Count 11.2H, Red Blood Count 5.46, Hemoglobin 16.4, Hematocrit 54, Mean Corpuscular Volume 98, Mean Corpuscular Hemoglobin 30, Mean Corpuscular Hemoglobin Concent 31L, Red Cell Distribution Width 14.5, Platelet Count 211, Mean Platelet Volume 10.1, Immature Granulocyte % (Auto) 1, Neutrophils (%) (Auto) 66, Lymphocytes (%) (Auto) 21, Monocytes (%) (Auto) 13H, Eosinophils (%) (Auto) 1, Basophils (%) (Auto) 0, Neutrophils # (Auto) 7.3, Lymphocytes # (Auto) 2.3, Monocytes # (Auto) 1.4H, Eosinophils # (Auto) 0.1, Basophils # (Auto) 0.0, Immature Granulocyte # (Auto) 0.1, Blood Gas Puncture Site RIGHT RADIAL, Blood Gas Patient Temperature 36.5, Arterial Blood pH 7.44H, Arterial Blood Partial Pressure CO2 55H, Arterial Blood Partial Pressure O2 81, Arterial Blood HCO3 36H , Arterial Blood Total CO2 38.1H, Arterial Blood Oxygen Saturation 95, Arterial Blood Base Excess 11.6H, Ignacio Test YES-POS, Blood Gas Ventilator Setting YES, Blood Gas Inspired Oxygen 60%, Sodium Level 145, Potassium Level 3.0L, Chloride Level 101, Carbon Dioxide Level 29, Anion Gap 15H, Blood Urea Nitrogen 28H, Creatinine 0.87, Estimat Glomerular Filtration Rate 106, BUN/Creatinine Ratio 32, Glucose Level 131H, Calcium Level 7.9L, Corrected Calcium 8.8, Phosphorus Level 2.6, Magnesium Level 2.0, Total Bilirubin 0.5, Aspartate Amino Transf (AST/SGOT) 30, Alanine Aminotransferase (ALT/SGPT) 34, Alkaline Phosphatase 60, Total Protein 6.4, Albumin 2.9L Microbiology 03/10/21 Gram Stain - Final, Resulted 03/10/21 Sputum Culture - Preliminary, Resulted Usual upper respiratory erick Staphylococcus aureus 03/09/21 Blood Culture - Preliminary, Resulted Aerococcus Viridans 03/09/21 Urine Culture - Final, Complete NO GROWTH Assessment/Plan Assessment/Plan (1) Acute on chronic respiratory failure with hypoxia and hypercapnia Status: Acute Assessment & Plan: Ventilator dependent, appreciate [facility] ICU recommendations. Suspect secondary to COVID19 infection with superimposed CHF and pulmonary e michelle. (2) Facial cellulitis Status: Acute Assessment & Plan: Question of facial cellulitis vs angioedema prior to admission. Completed 5 days of Zosyn, remains on vancomycin. Will resume Zosyn due to growth of aerococcus in blood x 2 and stop vancomycin given negative MRSA swab. (3) COVID-19 Status: Acute Assessment & Plan: Unknown onset of symptoms. On dexamethasone, requiring mechanical ventilation. (4) Morbid obesity Status: Chronic (5) Primary hypertension Status: Chronic Assessment & Plan: Initially hypotensive, blood pressure trending back up, appreciate Cardiology management. (6) Non-ST elevation myocardial infarction (NSTEMI), initial care episode Status: Acute Assessment & Plan: Elevated troponin on admit, unable to cath due to weight limit of table, on therapeutic enoxaparin x 5 days, changed back to prophylactic dose per Cardiology, started on ticagrelor. (7) Acute HFrEF (heart failure with reduced ejection fraction) Status: Acute Assessment & Plan: Appreciate Cardiology recommendations, receiving IV lasix, echo with somewhat reduced EF but difficult to evaluate well due to body habitus. (8) DVT prophylaxis Status: Acute Assessment & Plan: Enoxaparin (9) Discharge planning issues Status: Acute Assessment & Plan: Called [facility] to update on current status and discuss plans, no answer, voicemail not set up. JOANNA FERNÁNDEZ MD Mar 15, 2021 09:37
[2021-03-15] MEDS: VANCOMYCIN 1 GM/NS 250 ML IVPB IV SCH ×2 (10:43)
--- NOTE | 2021-03-15 10:51 | Tele-ICU Progress Note ---
Subjective Date Seen by a Provider: Mar 15, 2021 Time Seen by a Provider: 10:51 Sepsis Event Evaluation Height, Weight, BMI Height: 6'3.00" Weight: 401lbs. 0.0oz. 181.669648gn; 60.27 BMI Method:Actual Focused Exam Time of Focused Exam: 21:25 Exam Exam Patient acknowledged, consented, and participated in this virtual visit which was conducted using real time audio/video Vital Signs Date Time Temp Pulse Resp B/P (MAP) Pulse Ox O2 Delivery O2 Flow Rate FiO2 03/15/21 10:00 87 24 169/95 100 Mechanical Ventilator 60.00 03/15/21 09:31 69 124/72 03/15/21 09:00 87 21 129/88 95 Mechanical Ventilator 60.00 03/15/21 09:00 69 124/72 03/15/21 09:00 69 124/72 03/15/21 08:00 69 18 124/72 93 Mechanical Ventilator 60.00 03/15/21 07:59 37.0 03/15/21 07:58 95 Mechanical Ventilator 60 03/15/21 07:26 77 18 94 60 03/15/21 07:00 70 03/15/21 07:00 68 18 121/78 93 Mechanical Ventilator 60.00 03/15/21 06:00 68 18 122/76 93 Mechanical Ventilator 60.00 03/15/21 05:00 68 18 140/81 96 Mechanical Ventilator 60.00 03/15/21 04:00 36.5 03/15/21 04:00 95 Mechanical Ventilator 60 03/15/21 04:00 68 18 153/89 95 Mechanical Ventilator 60.00 03/15/21 03:47 66 122/81 03/15/21 03:00 64 18 120/79 91 Mechanical Ventilator 60.00 03/15/21 02:32 62 18 97 60 03/15/21 02:00 66 18 142/90 94 Mechanical Ventilator 60.00 03/15/21 01:00 66 18 144/90 96 Mechanical Ventilator 60.00 03/15/21 01:00 66 03/15/21 00:00 95 Mechanical Ventilator 60 03/15/21 00:00 64 18 125/79 97 Mechanical Ventilator 60.00 03/14/21 23:00 64 18 116/69 97 Mechanical Ventilator 60.00 03/14/21 22:23 64 119/80 03/14/21 22:00 64 18 119/80 95 Mechanical Ventilator 60.00 03/14/21 21:39 62 18 97 60 03/14/21 21:00 63 18 117/74 95 Mechanical Ventilator 65.00 03/14/21 20:00 62 18 110/71 95 Mechanical Ventilator 65.00 03/14/21 20:00 95 Mechanical Ventilator 65 03/14/21 19:00 65 18 147/87 95 Mechanical Ventilator 65.00 03/14/21 19:00 Mechanical Ventilator 65.00 03/14/21 19:00 65 03/14/21 18:00 68 18 136/87 96 Mechanical Ventilator 75.00 03/14/21 17:25 65 127/82 03/14/21 17:24 65 127/82 03/14/21 17:00 65 19 127/82 97 Mechanical Ventilator 75.00 03/14/21 16:15 96 Mechanical Ventilator 65 03/14/21 16:00 66 18 136/88 97 Mechanical Ventilator 75.00 03/14/21 15:38 76 18 95 65 03/14/21 15:25 65 141/90 03/14/21 15:25 65 141/90 03/14/21 15:00 65 18 141/90 98 Mechanical Ventilator 75.00 03/14/21 14:00 66 31 133/85 98 Mechanical Ventilator 75.00 03/14/21 13:00 68 18 132/88 93 Mechanical Ventilator 75.00 03/14/21 12:50 68 03/14/21 12:15 95 Mechanical Ventilator 65 03/14/21 12:00 68 18 136/91 95 Mechanical Ventilator 75.00 03/14/21 11:44 67 129/84 03/14/21 11:43 67 129/84 03/14/21 11:29 66 18 96 65 03/14/21 11:00 65 18 133/87 96 Mechanical Ventilator 75.00 I & O 03/15/21 07:00 Intake Total 3315 ml Output Total 3025 ml Balance 290 ml Height & Weight Height: 6'3.00" Weight: 401lbs. 0.0oz. 181.294934mu; 60.27 BMI Method:Actual General Appearance: Chronically ill, Obese, Other (Sedated and intubated) Respiratory: Decreased Breath Sounds Cardiovascular: Regular Rate, Rhythm Capillary Refill: Less Than 3 Seconds Peripheral Pulses: 2+ Radial Pulses (R), 2+ Radial Pulses (L) Gastrointestinal: normal bowel sounds, non tender, soft, no organomegaly Skin: Other (angioedema of lips) Results Lab Laboratory Tests 03/14/21 05:30 03/15/21 04:00 Assessment/Plan Assessment/Plan Tele-ICU Physician , Progress Note ) Available chart/ vitals / labs / Images reviewed Video assessment done using teleICU camera, rest of exam as per RN Discussed with RN , EXAM PER RN Events overnight : Afebrile FiO2 - 100 I/O = 4L Drips: Pressors: , hemodynamically stable Sedation gtt: propofol 20 versed 7 ( RASS -3 ) fent prn VENT SETTINGS and ABG reviewed Not candidate for SBT today REVIEWED Cardiovascular Stability / Sedation Score / FI02/PEEP / ABG / CXR Consultants: rashad Hospital course: 03/09 - COVID PNA , ( post J&J) DIFFICULT INTUBATION 03/10 - peep 12 , 70% 03/11 -peep 12 70% , increased edema of lips and toungue - INCREASED DECARDONE TO 10 q6H 03/12 - 100% peep 20 03/13- 80/+14- OFF DECARDONE 03/15- 60 % +10 A/P AHRF / ARDS due to severe COVID19 - Intubated 03/09 in ER -AC 18 - 500 ( 6cc/kg =480) 60 % +10 -with body habitus will postpone prone position Difficult intubation in ER - done by anaestesiology -appears to be old tracheostomy scar in place as per noted with redundant scar tissue from previous tracheostomy - in ER c/o facial swelling 5 days ( taken benadryl ) - as per RN exam 03/11 - increased edema of lips and toungue - INCREASED DECARDONE TO 10 q6H - OFF DECARDONE 03/13 [id number]-9/COVID-19 PNA ( Symptom onset ~? 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 Discussed with RN to reach out if any questions or concerns A total of 35 minutes of critical care time was devoted to this patient today, required to treat and/or prevent further deterioration of critical care condition ( as above ) . ÓSCAR DALLAS MD Mar 15, 2021 10:51
[2021-03-15] MEDS: RT-ALBUTEROL HFA 8.5 GM INHALER IH SCH ×3 (11:08→22:28)
[2021-03-15 11:09] VITALS: BP 159/83
[2021-03-15] MEDS: MIDAZOLAM DRIP PRE-MIX 100 ML IV SCH (11:17)
[2021-03-15] MEDS: LACRI-LUBE OPTHALMIC OINT 3.5 GM TUBE OU PRN (13:03)
[2021-03-15 13:42] LABS: CALCIUM 8.2 MG/DL (8.5-10.1); CREATININE SERUM 0.82 MG/DL (0.60-1.30); POTASSIUM 3.1 MMOL/L (3.6-5.0)
[2021-03-15] MEDS ORDERED: PIPERACILLIN SODIUM/TAZOBACTAM 4.5 GM in NS (IVPB) 100 ML IV NR (14:30)
[2021-03-15 15:27] VITALS: BP 144/87
[2021-03-15 19:03] VITALS: BP 124/84
[2021-03-15] MEDS: ENOXAPARIN 60 MG/0.6 ML (LOVENOX) SYR SQ SCH (20:05)
[2021-03-15] MEDS: ROSUVASTATIN 20 MG (CRESTOR) TABLET PO SCH (20:05)
[2021-03-15] MEDS: PIPERACILLIN SODIUM/TAZOBACTAM 4.5 GM in NS (IVPB) 100 ML IV SCH (20:06)
[2021-03-15 22:29] VITALS: BP 113/73
[2021-03-16 02:16] VITALS: BP 113/74
[2021-03-16] MEDS: RT-ALBUTEROL HFA 8.5 GM INHALER IH SCH ×4 (02:16→21:28)
[2021-03-16] MEDS: MIDAZOLAM DRIP PRE-MIX 100 ML IV SCH ×2 (02:22→18:37)
[2021-03-16] MEDS: NOREPINEPHRINE 8 MG/250 ML 250 ML IV SCH ×3 (02:23→17:29)
[2021-03-16] MEDS ORDERED: LACTATED RINGERS 0 ML IV ONE (03:57)
[2021-03-16] MEDS: D5 LR IV SOLUTION 1,000 ML IV SCH ×2 (04:00→17:33)
[2021-03-16 04:14] LABS: BASOPHILS % (AUTO) 0 % (0-10); EOSINOPHILS # (AUTO) 0.2 10^3/uL (0.0-0.3); EOSINOPHILS % (AUTO) 1 % (0-10); HEMATOCRIT 53 % (40-54); HEMOGLOBIN 16.1 g/dL (13.3-17.7); LYMPHOCYTES # (AUTO) 1.8 10^3/uL (1.0-4.0); LYMPHOCYTES % (AUTO) 16 % (12-44); MEAN CORPUSCULAR HEMOGLOBIN 30 pg (25-34); MEAN CORPUSCULAR HGB CONC 31 g/dL (32-36); MEAN CORPUSCULAR VOLUME 99 fL (80-99); MEAN PLATELET VOLUME 10.3 fL (9.0-12.2); MONOCYTES # (AUTO) 1.6 10^3/uL (0.0-1.0); MONOCYTES % (AUTO) 14 % (0-12); NEUTROPHILS # (AUTO) 7.9 10^3/uL (1.8-7.8); NEUTROPHILS % (AUTO) 68 % (42-75); PLATELET COUNT 208 10^3/uL (130-400); WHITE BLOOD COUNT 11.5 10^3/uL (4.3-11.0)
[2021-03-16 04:15] LABS: ABG BASE EXCESS 11.4 MMOL/L (-2.5-2.5); ABG OXYGEN SATURATION 90 % (94-100); ABG PCO2 55 MMHG (35-45); ABG PH 7.44 (7.37-7.43); ABG PO2 69 MMHG (79-93); ABG TCO2 37.8 MMOL/L (21.0-31.0)
[2021-03-16 04:17] LABS: ALLENS TEST POSITIVE; INSPIRED O2 50; PATIENT TEMP 37.4; VENTILATOR YES
[2021-03-16 04:29] LABS: POTASSIUM 3.4 MMOL/L (3.6-5.0)
[2021-03-16 04:30] LABS: CALCIUM 8.2 MG/DL (8.5-10.1)
[2021-03-16 04:31] LABS: TOTAL PROTEIN 6.3 GM/DL (6.4-8.2)
[2021-03-16 04:33] LABS: BILIRUBIN,TOTAL 0.7 MG/DL (0.1-1.0)
[2021-03-16 04:34] LABS: PHOSPHORUS 2.7 MG/DL (2.3-4.7)
[2021-03-16 04:35] LABS: CREATININE SERUM 0.8 MG/DL (0.60-1.30)
[2021-03-16 04:38] LABS: MAGNESIUM 2.2 MG/DL (1.6-2.4)
[2021-03-16] MEDS: MAGNESIUM 1 GM/100 ML IVPB 100 ML IV SCH (04:39)
[2021-03-16] MEDS: POTASSIUM CL 10MEQ/50ML IVPB 50 ML IV SCH ×3 (04:39→05:13)
[2021-03-16] MEDS: inSUlin ASPART (NovoLOG) 1 UNIT/0.01 ML (CHARGE PER UNIT) SC SCH ×3 (04:39→17:29)
[2021-03-16] MEDS: KCL 20 MEQ TAB (K-DUR) PO SCH (04:39)
[2021-03-16] MEDS: CATHETER FLUSH 10 ML SYR IV SCH ×3 (05:13→21:21)
[2021-03-16] MEDS: PIPERACILLIN SODIUM/TAZOBACTAM 4.5 GM in NS (IVPB) 100 ML IV SCH ×3 (05:13→20:17)
[2021-03-16] MEDS: FUROSEMIDE 40 MG/4 ML INJ (LASIX) IVP SCH ×2 (05:13→17:09)
[2021-03-16 07:38] VITALS: BP 128/74
[2021-03-16] MEDS: ASPIRIN 81 MG CHEW (CHILDREN'S ASA) PO SCH (08:13)
[2021-03-16] MEDS: PANTOPRAZOLE 40 MG (PROTONIX) VIAL IV SCH (08:14)
[2021-03-16] MEDS: TICAGRELOR 90 MG TABLET (BRILINTA) PO SCH ×2 (08:14→20:16)
[2021-03-16] MEDS: lisINopril 5 MG (PRINIVIL) TABLET PO SCH (08:14)
[2021-03-16] MEDS: ENOXAPARIN 60 MG/0.6 ML (LOVENOX) SYR SQ SCH ×2 (08:15→20:16)
[2021-03-16] MEDS: FAMOTIDINE 20MG/2ML IV (PEPCID) IVP SCH (08:15)
[2021-03-16] MEDS: PROPOFOL DRIP (ICU) 100 ML IV SCH ×3 (08:17→21:20)
[2021-03-16] MEDS: MICONAZOLE 2% POWDER (DESENEX AF) 90 GM TOP SCH ×4 (08:17→20:17)
--- NOTE | 2021-03-16 08:17 | Cardiology Progress Note ---
Subjective Date Seen by Provider: Mar 16, 2021 Time Seen by Provider: 08:15 Subjective/Events-last exam Patient is sedated and intubated Review of Systems General: Other (Unable to provide review of system) Focused Exam Time of Focused Exam: 21:25 Objective-Cardiology Exam Last Set of Vital Signs Vital Signs 03/16/21 03/16/21 03/16/21 03:57 06:00 07:38 Temp 37.4 Pulse 81 Resp 18 B/P (MAP) 135/86 Pulse Ox 98 O2 Delivery Mechanical Ventilator O2 Flow Rate 45.00 FiO2 45 I&O Intake and Output 03/16/21 00:00 Intake Total 3510 ml Output Total 4875 ml Balance -1365 ml Intake Oral 0 ml IV Total 1320 ml Tube Feeding 1440 ml Other 750 ml Output Urine Total 4875 ml General: Other (intubated, obese) HEENT: Atraumatic Neck: Supple Lungs: Other (ronchi) Heart: Regular Rate, No Murmurs Abdomen: Normal Bowel Sounds Extremities: No Edema Skin: No Rashes, No Breakdown Neuro: Other (Sedated and intubated) Psych/Mental Status: Other (Sedated and intubated) Results Lab Laboratory Tests 03/15/21 10:40 03/16/21 04:00 A/P-Cardiology Admission Diagnosis COVID-19 pneumonia Acute respiratory failure Non-ST elevation myocardial infarction Hypertension Assessment/Plan COVID-19 pneumonia, acute respiratory failure, ventilator dependent, improving, chest x-ray showed significant improvement, possible weaning trial today. Non-ST elevation myocardial infarction, conservative management was recommended, has been followed by Dr. Funes. Continue to monitor Congestive heart failure, acute on chronic left ventricular systolic dysfunction, responding to diuretics. Maintained on Lasix 80 mg twice daily Hypertension, blood pressure is better controlled today. Continue to monitor Maintained on Coreg 6.25 twice daily and lisinopril 5 mg daily, continue to monitor blood pressure Morbid obesity, BMI 60 History of noncompliance with medications. LADAN AKINS MD Mar 16, 2021 08:17
--- NOTE | 2021-03-16 10:44 | Tele-ICU Progress Note ---
Subjective Date Seen by a Provider: Mar 16, 2021 Time Seen by a Provider: 10:42 Sepsis Event Evaluation Height, Weight, BMI Height: 6'3.00" Weight: 401lbs. 0.0oz. 181.197058le; 60.27 BMI Method:Actual Focused Exam Time of Focused Exam: 21:25 Exam Exam Patient acknowledged, consented, and participated in this virtual visit which was conducted using real time audio/video Vital Signs Date Time Temp Pulse Resp B/P (MAP) Pulse Ox O2 Delivery O2 Flow Rate FiO2 03/16/21 10:22 78 117/67 03/16/21 10:00 78 18 117/67 97 Mechanical Ventilator 40.00 03/16/21 09:24 45 03/16/21 09:00 78 18 117/71 96 Mechanical Ventilator 40.00 03/16/21 08:35 98 Mechanical Ventilator 40 03/16/21 08:24 81 128/74 03/16/21 08:17 81 128/74 03/16/21 08:00 81 18 119/74 97 Mechanical Ventilator 40.00 03/16/21 07:49 Mechanical Ventilator 40.00 03/16/21 07:38 81 18 98 45 03/16/21 07:00 80 03/16/21 07:00 82 20 121/79 98 Mechanical Ventilator 45.00 03/16/21 06:00 78 18 135/86 98 Mechanical Ventilator 45.00 03/16/21 05:20 45 03/16/21 05:00 76 18 122/77 99 Mechanical Ventilator 45.00 03/16/21 04:11 45 03/16/21 04:11 Mechanical Ventilator 45.00 03/16/21 04:00 75 18 137/88 98 Mechanical Ventilator 50.00 03/16/21 04:00 98 Mechanical Ventilator 45 03/16/21 03:57 37.4 Mechanical Ventilator 50.00 03/16/21 03:00 76 18 107/67 99 Mechanical Ventilator 50.00 03/16/21 02:22 78 18 113/74 03/16/21 02:16 78 18 100 55 03/16/21 02:00 76 18 113/74 100 Mechanical Ventilator 50.00 03/16/21 01:30 50 03/16/21 01:00 77 18 115/76 100 Mechanical Ventilator 50.00 03/16/21 01:00 77 03/16/21 00:00 74 18 112/70 97 Mechanical Ventilator 50.00 03/15/21 23:15 99 Mechanical Ventilator 50 03/15/21 23:13 81 126/78 03/15/21 23:13 81 126/78 03/15/21 23:00 37.6 80 18 126/78 99 Mechanical Ventilator 50.00 03/15/21 22:29 81 26 100 55 03/15/21 22:00 78 18 136/82 100 Mechanical Ventilator 55.00 03/15/21 21:30 55 03/15/21 21:00 76 18 103/64 98 Mechanical Ventilator 55.00 03/15/21 20:00 79 18 116/77 95 Mechanical Ventilator 55.00 03/15/21 20:00 95 Mechanical Ventilator 55 03/15/21 20:00 55 03/15/21 19:46 37.0 03/15/21 19:03 87 24 92 55 03/15/21 19:00 86 03/15/21 19:00 37.3 Mechanical Ventilator 55.00 03/15/21 19:00 86 18 124/84 94 Mechanical Ventilator 55.00 03/15/21 18:00 92 27 149/84 96 Mechanical Ventilator 60.00 03/15/21 17:00 82 20 139/81 95 Mechanical Ventilator 60.00 03/15/21 16:40 95 Mechanical Ventilator 60 03/15/21 16:13 80 144/87 03/15/21 16:04 80 144/87 03/15/21 16:04 80 144/87 03/15/21 16:00 80 14 147/92 92 Mechanical Ventilator 60.00 03/15/21 15:53 36.9 03/15/21 15:27 80 18 97 55 03/15/21 15:00 80 18 144/87 96 Mechanical Ventilator 60.00 03/15/21 14:01 80 138/85 03/15/21 14:00 79 18 127/80 96 Mechanical Ventilator 60.00 03/15/21 13:00 80 18 138/85 99 Mechanical Ventilator 60.00 03/15/21 12:32 84 03/15/21 12:23 37.7 03/15/21 12:15 95 Mechanical Ventilator 60 03/15/21 12:00 83 22 137/82 99 Mechanical Ventilator 60.00 03/15/21 11:17 87 24 159/83 03/15/21 11:09 87 24 99 60 03/15/21 11:00 91 31 159/83 100 Mechanical Ventilator 60.00 I & O 03/16/21 07:00 Intake Total 4270 ml Output Total 4950 ml Balance -680 ml Height & Weight Height: 6'3.00" Weight: 401lbs. 0.0oz. 181.558845yr; 60.27 BMI Method:Actual General Appearance: Chronically ill, Obese, Other (Sedated and intubated) Respiratory: Decreased Breath Sounds Cardiovascular: Regular Rate, Rhythm Capillary Refill: Less Than 3 Seconds Peripheral Pulses: 2+ Radial Pulses (R), 2+ Radial Pulses (L) Gastrointestinal: normal bowel sounds, non tender, soft, no organomegaly Skin: Other (angioedema of lips) Results Lab Laboratory Tests 03/15/21 04:00 03/15/21 10:40 03/16/21 04:00 Assessment/Plan Assessment/Plan Tele-ICU Physician , Progress Note ) Available chart/ vitals / labs / Images reviewed Video assessment done using teleICU camera, rest of exam as per RN Discussed with RN , EXAM PER RN Events overnight : febrilke FiO2 - 45% I/O = neg 1300 Drips: Pressors: , hemodynamically stable Sedation gtt: propofol 10 versed 6 ( RASS -2 ) fent prn VENT SETTINGS and ABG reviewed Not candidate for SBT today REVIEWED Cardiovascular Stability / Sedation Score / FI02/PEEP / ABG / CXR Consultants: rashad Hospital course: 03/09 - COVID PNA , ( post J&J) DIFFICULT INTUBATION 03/10 - peep 12 , 70% 03/11 -peep 12 70% , increased edema of lips and toungue - INCREASED DECARDONE TO 10 q6H 03/12 - 100% peep 20 03/13- 80/+14- OFF DECARDONE 03/15- 60 % +10 03/16- 40% +10 A/P AHRF / ARDS due to severe COVID19 - Intubated 03/09 in ER -AC 18 - 500 ( 6cc/kg =480) 60 % +10 CUFF LEAK - to be done today - WILL BE VERY CAUTIOS WITH EXTUBATION ATTEMTS ID LEAK IS LOW Difficult intubation in ER - done by anaestesiology -appears to be old tracheostomy scar in place as per noted with redundant scar tissue from previous tracheostomy - in ER c/o facial swelling 5 days ( taken benadryl ) - as per RN exam 03/11 - increased edema of lips and toungue - INCREASED DECARDONE TO 10 q6H - OFF DECARDONE 03/13- resumed 03/16 6qd VHIR-Efnztadvhmb-4/COVID-19 PNA ( Symptom onset ~? 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 Discussed with RN to reach out if any questions or concerns A total of 35 minutes of critical care time was devoted to this patient today, required to treat and/or prevent further deterioration of critical care condition ( as above ) . ÓSCAR DALLAS MD Mar 16, 2021 10:43
[2021-03-16 11:08] VITALS: BP 123/75
[2021-03-16] MEDS: VASOPRESSIN INJECTION 20 UNIT in NS (IVPB) 100 ML IV SCH ×2 (11:27→23:04)
--- NOTE | 2021-03-16 12:31 | Progress Note ---
Subjective Subjective/Events-last exam Afebrile, having a lot of secretions, able to decrease sedation some and on 40% FiO2 on ventilator. Focused Exam Time of Focused Exam: 21:25 Objective Exam Last Set of Vital Signs Vital Signs Date Time Temp Pulse Resp B/P (MAP) Pulse Ox O2 Delivery O2 Flow Rate FiO2 03/16/21 11:36 98 Mechanical Ventilator 40 03/16/21 11:27 81 123/75 03/16/21 11:08 20 03/16/21 11:00 40.00 03/16/21 03:57 37.4 Capillary Refill : Less Than 3 Seconds I&O Intake and Output 03/16/21 00:00 Intake Total 3510 ml Output Total 4875 ml Balance -1365 ml Intake Oral 0 ml IV Total 1320 ml Tube Feeding 1440 ml Other 750 ml Output Urine Total 4875 ml General: Other (sedated, ventilated) HEENT: Other (bubbling saliva at edges of mouth) Lungs: Normal Air Movement Heart: Regular Rate, No Murmurs Abdomen: Normal Bowel Sounds, Soft Extremities: Other (decreased edema with skin wrinkling) Results/Procedures Lab Laboratory Tests 03/15/21 17:31: Glucometer 97 03/15/21 23:06: Glucometer 136H 03/16/21 04:00: White Blood Count 11.5H, Red Blood Count 5.31, Hemoglobin 16.1, Hematocrit 53, Mean Corpuscular Volume 99, Mean Corpuscular Hemoglobin 30, Mean Corpuscular Hemoglobin Concent 31L, Red Cell Distribution Width 14.2, Platelet Count 208, Mean Platelet Volume 10.3, Immature Granulocyte % (Auto) 1, Neutrophils (%) (Auto) 68, Lymphocytes (%) (Auto) 16, Monocytes (%) (Auto) 14H, Eosinophils (%) (Auto) 1, Basophils (%) (Auto) 0, Neutrophils # (Auto) 7.9H, Lymphocytes # (Auto) 1.8, Monocytes # (Auto) 1.6H, Eosinophils # (Auto) 0.2, Basophils # (Auto) 0.0, Immature Granulocyte # (Auto) 0.1, Blood Gas Puncture Site RIGHT RADIAL, Blood Gas Patient Temperature 37.4, Arterial Blood pH 7.44H, Arterial Blood Partial Pressure CO2 55H, Arterial Blood Partial Pressure O2 69L, Arterial Blood HCO3 36H, Arterial Blood Total CO2 37.8H, Arterial Blood Oxygen Saturation 90L, Arterial Blood Base Excess 11.4H, Ignacio Test POSITIVE, Blood Gas Ventilator Setting YES, Blood Gas Inspired Oxygen 50, Sodium Level 144, Potassium Level 3.4L, Chloride Level 102, Carbon Dioxide Level 29, Anion Gap 13, Blood Urea Nitrogen 23H, Creatinine 0.80, Estimat Glomerular Filtration Rate 109, BUN/Creatinine Ratio 29, Glucose Level 117H, Calcium Level 8.2L, Corrected Calcium 9.0, Phosphorus Level 2.7, Magnesium Level 2.2, Total Bilirubin 0.7, Aspartate Amino Transf (AST/SGOT) 42H, Alanine Aminotransferase (ALT/SGPT) 48, Alkaline Phosphatase 57, Total Protein 6.3L, Albumin 3.0L, Triglycerides Level 191H 03/16/21 11:26: Glucometer 146H Microbiology 03/10/21 Gram Stain - Final, Complete 03/10/21 Sputum Culture - Final, Complete Usual upper respiratory erick Staphylococcus aureus 03/09/21 Blood Culture - Preliminary, Resulted Aerococcus Viridans 03/09/21 Urine Culture - Final, Complete NO GROWTH Assessment/Plan Assessment/Plan (1) Acute on chronic respiratory failure with hypoxia and hypercapnia Status: Acute Assessment & Plan: Ventilator dependent, appreciate [facility] ICU recommendations. Suspect secondary to COVID19 infection with superimposed CHF and pulmonary edema. (2) Facial cellulitis Status: Acute Assessment & Plan: Question of facial cellulitis vs angioedema prior to admis laina. Completed 5 days of Zosyn, remains on vancomycin. Will resume Zosyn due to growth of aerococcus in blood x 2 and stop vancomycin given negative MRSA swab. 03/16/21- continue zosyn (3) COVID-19 Status: Acute Assessment & Plan: Unknown onset of symptoms. On dexamethasone day 7, requiring mechanical ventilation. (4) Morbid obesity Status: Chronic (5) Primary hypertension Status: Chronic Assessment & Plan: Initially hypotensive, blood pressure trending back up, appreciate Cardiology management. (6) Non-ST elevation myocardial infarction (NSTEMI), initial care episode Status: Acute Assessment & Plan: Elevated troponin on admit, unable to cath due to weight l imit of table, on therapeutic enoxaparin x 5 days, changed back to prophylactic dose per Cardiology, started on ticagrelor. (7) Acute HFrEF (heart failure with reduced ejection fraction) Status: Acute Assessment & Plan: Appreciate Cardiology recommendations, receiving IV lasix, echo with somewhat reduced EF but difficult to evaluate well due to body habitus. (8) DVT prophylaxis Status: Acute Assessment & Plan: Enoxaparin (9) Discharge planning issues Status: Acute Assessment & Plan: 03/15- Called Guerda to update on current status and discuss plans, no answer, voicemail not set up. 03/16- Called Guedra (sister) and updated on status, she denied further questions at this time. JOANNA FERNÁNDEZ MD Mar 16, 2021 12:31
[2021-03-16] MEDS ORDERED: SCOPOLAMINE 1.5 MG (TRANSDERM-SCOP) PATCH TD NR (12:45)
[2021-03-16 15:10] VITALS: BP 113/72
[2021-03-16 19:00] VITALS: BP 103/67
[2021-03-16] MEDS: ROSUVASTATIN 20 MG (CRESTOR) TABLET PO SCH (20:16)
[2021-03-16 21:28] VITALS: BP 102/62
[2021-03-17] VITALS (7 sets, daily range): BP systolic 99–107; BP diastolic 63–69
[2021-03-17] MEDS: RT-ALBUTEROL HFA 8.5 GM INHALER IH SCH ×5 (03:15→21:46)
[2021-03-17] MEDS: PIPERACILLIN SODIUM/TAZOBACTAM 4.5 GM in NS (IVPB) 100 ML IV SCH ×3 (04:22→20:26)
[2021-03-17] MEDS: D5 LR IV SOLUTION 1,000 ML IV SCH (04:23)
[2021-03-17 04:48] LABS: BASOPHILS % (AUTO) 0 % (0-10); EOSINOPHILS # (AUTO) 0.2 10^3/uL (0.0-0.3); EOSINOPHILS % (AUTO) 1 % (0-10); HEMATOCRIT 49 % (40-54); HEMOGLOBIN 14.9 g/dL (13.3-17.7); LYMPHOCYTES # (AUTO) 2.1 10^3/uL (1.0-4.0); LYMPHOCYTES % (AUTO) 16 % (12-44); MEAN CORPUSCULAR HEMOGLOBIN 30 pg (25-34); MEAN CORPUSCULAR HGB CONC 31 g/dL (32-36); MEAN CORPUSCULAR VOLUME 99 fL (80-99); MEAN PLATELET VOLUME 10.3 fL (9.0-12.2); MONOCYTES # (AUTO) 1.6 10^3/uL (0.0-1.0); MONOCYTES % (AUTO) 12 % (0-12); NEUTROPHILS # (AUTO) 9.1 10^3/uL (1.8-7.8); NEUTROPHILS % (AUTO) 70 % (42-75); PLATELET COUNT 204 10^3/uL (130-400); WHITE BLOOD COUNT 13.1 10^3/uL (4.3-11.0)
[2021-03-17 04:58] LABS: ALBUMIN 2.9 GM/DL (3.2-4.5); POTASSIUM 3.5 MMOL/L (3.6-5.0)
[2021-03-17 04:59] LABS: CALCIUM 8.3 MG/DL (8.5-10.1)
[2021-03-17 05:00] LABS: TOTAL PROTEIN 6.1 GM/DL (6.4-8.2)
[2021-03-17 05:02] LABS: BILIRUBIN,TOTAL 0.7 MG/DL (0.1-1.0)
[2021-03-17 05:03] LABS: PHOSPHORUS 3.1 MG/DL (2.3-4.7)
[2021-03-17] MEDS: KCL 20 MEQ TAB (K-DUR) PO SCH (05:03)
[2021-03-17] MEDS: inSUlin ASPART (NovoLOG) 1 UNIT/0.01 ML (CHARGE PER UNIT) SC SCH ×5 (05:03→23:59)
[2021-03-17 05:04] LABS: CREATININE SERUM 0.75 MG/DL (0.60-1.30)
[2021-03-17 05:07] LABS: MAGNESIUM 2.2 MG/DL (1.6-2.4)
[2021-03-17] MEDS: MAGNESIUM 1 GM/100 ML IVPB 100 ML IV SCH (05:07)
[2021-03-17] MEDS: POTASSIUM CL 10MEQ/50ML IVPB 50 ML IV SCH ×3 (05:07→06:15)
[2021-03-17] MEDS: CATHETER FLUSH 10 ML SYR IV SCH ×3 (05:16→21:47)
[2021-03-17] MEDS: NOREPINEPHRINE 8 MG/250 ML 250 ML IV SCH ×4 (05:56→18:20)
[2021-03-17] MEDS: FUROSEMIDE 40 MG/4 ML INJ (LASIX) IVP SCH ×2 (06:30→18:20)
[2021-03-17] MEDS: PROPOFOL DRIP (ICU) 100 ML IV SCH ×3 (08:20→20:24)
[2021-03-17] MEDS: FAMOTIDINE 20MG/2ML IV (PEPCID) IVP SCH (08:22)
[2021-03-17] MEDS: ENOXAPARIN 60 MG/0.6 ML (LOVENOX) SYR SQ SCH ×2 (08:22→20:25)
[2021-03-17] MEDS: TICAGRELOR 90 MG TABLET (BRILINTA) PO SCH ×2 (08:23→20:26)
[2021-03-17] MEDS: ASPIRIN 81 MG CHEW (CHILDREN'S ASA) PO SCH (08:23)
[2021-03-17] MEDS: lisINopril 5 MG (PRINIVIL) TABLET PO SCH (08:23)
[2021-03-17] MEDS: PANTOPRAZOLE 40 MG (PROTONIX) VIAL IV SCH (08:23)
[2021-03-17] MEDS: MICONAZOLE 2% POWDER (DESENEX AF) 90 GM TOP SCH ×4 (08:24→20:25)
--- NOTE | 2021-03-17 08:38 | Progress Note ---
Subjective Subjective/Events-last exam Afebrile, remains on same ventilator settings, no acute events. Focused Exam Time of Focused Exam: 21:25 Objective Exam Last Set of Vital Signs Vital Signs Date Time Temp Pulse Resp B/P (MAP) Pulse Ox O2 Delivery O2 Flow Rate FiO2 03/17/21 08:20 69 96/73 03/17/21 07:00 18 95 Mechanical Ventilator 40.00 03/17/21 06:57 40 03/17/21 04:00 36.6 Capillary Refill : Less Than 3 Seconds I&O Intake and Output 03/17/21 00:00 Intake Total 2670 ml Output Total 4650 ml Balance -1980 ml Intake Oral 0 ml IV Total 1200 ml Tube Feeding 720 ml Other 750 ml Output Urine Total 4650 ml General: Other (sedated, intubated) Lungs: Other (ronchi) Heart: Regular Rate, No Murmurs Abdomen: Normal Bowel Sounds, Soft Extremities: No Edema Results/Procedures Lab Laboratory Tests 03/16/21 11:26: Glucometer 146H 03/16/21 17:27: Glucometer 121H 03/16/21 23:26: Glucometer 101 03/17/21 04:33: White Blood Count 13.1H, Red Blood Count 4.92, Hemoglobin 14.9, Hematocrit 49, Mean Corpuscular Volume 99, Mean Corpuscular Hemoglobin 30, Mean Corpuscular Hemoglobin Concent 31L, Red Cell Distribution Width 13.8, Platelet Count 204, Mean Platelet Volume 10.3, Immature Granulocyte % (Auto) 1, Neutrophils (%) (Auto) 70, Lymphocytes (%) (Auto) 16, Monocytes (%) (Auto) 12, Eosinophils (%) (Auto) 1, Basophils (%) (Auto) 0, Neutrophils # (Auto) 9.1H, Lymphocytes # (Auto) 2.1, Monocytes # (Auto) 1.6H, Eosinophils # (Auto) 0.2, Basophils # (Auto) 0.0, Immature Granulocyte # (Auto) 0.1, Sodium Level 144, Potassium Level 3.5L, Chloride Level 102, Carbon Dioxide Level 31, Anion Gap 11, Blood Urea Nitrogen 22H, Creatinine 0.75, Estimat Glomerular Filtration Rate 111, BUN/Crea tinine Ratio 29, Glucose Level 125H, Calcium Level 8.3L, Corrected Calcium 9.2, Phosphorus Level 3.1, Magnesium Level 2.2, Total Bilirubin 0.7, Aspartate Amino Transf (AST/SGOT) 38H, Alanine Aminotransferase (ALT/SGPT) 55, Alkaline Phosphatase 50, Total Protein 6.1L, Albumin 2.9L, Triglycerides Level 191H Microbiology 03/10/21 Gram Stain - Final, Complete 03/10/21 Sputum Culture - Final, Complete Usual upper respiratory erick Staphylococcus aureus 03/09/21 Blood Culture - Final, Complete Aerococcus Viridans 03/09/21 Urine Culture - Final, Complete NO GROWTH Assessment/Plan Assessment/Plan (1) Acute on chronic respiratory failure with hypoxia and hypercapnia Status: Acute Assessment & Plan: Ventilator dependent, appreciate [facility] ICU recommendations. Suspect secondary to COVID19 infection with superimposed CHF and pulmonary edema. (2) Facial cellulitis Status: Acute Assessment & Plan: Question of facial cellulitis vs angioedema prior to admission. Completed 5 days of Zosyn, remains on vancomycin. Will resume Zosyn due to growth of aerococcus in blood x 2 and stop vancomycin given negative MRSA swab. 03/17/21- continue zosyn (3) COVID-19 Status: Acute Assessment & Plan: Unknown onset of symptoms. On dexamethasone day 8, requiring mechanical ventilation. (4) Morbid obesity Status: Chronic (5) Primary hypertension Status: Chronic Assessment & Plan: Initially hypotensive, blood pressure trending back up, appreciate Cardiology management. (6) Non-ST elevation myocardial infarction (NSTEMI), initial care episode Status: Acute Assessment & Plan: Elevated troponin on admit, unable to cath due to weight limit of table, on therapeutic enoxaparin x 5 days, changed back to prophylactic dose per Cardiology, started on ticagrelor. (7) Acute HFrEF (heart failure with reduced ejection fraction) Status: Acute Assessment & Plan: Appreciate Cardiology recommendations, receiving IV lasix, echo with somewhat reduced EF but difficult to evaluate well due to body habitus. (8) DVT prophylaxis Status: Acute Assessment & Plan: Enoxaparin (9) Discharge planning issues Status: Acute Assessment & Plan: 03/15- Called Guerda to update on current status and dis cuss plans, no answer, voicemail not set up. 03/16- Called Guerda (sister) and updated on status, she denied further questions at this time. 03/17- spoke with Guerda around 0830, discussed no significant changes from yesterday, awaiting [facility] ICU physician plan later this morning. JOANNA FERNÁNDEZ MD Mar 17, 2021 08:38
--- NOTE | 2021-03-17 10:15 | Cardiology Progress Note ---
Subjective Date Seen by Provider: Mar 17, 2021 Time Seen by Provider: 10:14 Subjective/Events-last exam Patient is sedated and intubated. Failed weaning yesterday Review of Systems General: Other (Unable to provide review of system) Focused Exam Time of Focused Exam: 21:25 Objective-Cardiology Exam Last Set of Vital Signs Vital Signs 03/17/21 03/17/21 03/17/21 08:00 09:10 10:00 Temp 36.3 Pulse 67 Resp 18 B/P (MAP) 103/65 Pulse Ox 95 O2 Delivery Mechanical Ventilator O2 Flow Rate 40.00 FiO2 40 I&O Intake and Output 03/17/21 00:00 Intake Total 2670 ml Output Total 4650 ml Balance -1980 ml Intake Oral 0 ml IV Total 1200 ml Tube Feeding 720 ml Other 750 ml Output Urine Total 4650 ml General: Other (sedated, intubated) HEENT: Other (bubbling saliva at edges of mouth) Neck: Supple Lungs: Other (ronchi) Heart: Regular Rate, No Murmurs Abdomen: Soft Extremities: No Edema Skin: No Rashes, No Breakdown Neuro: Other (Sedated and intubated) Psych/Mental Status: Other (Sedated and intubated) Results Lab Laboratory Tests 03/17/21 04:33 A/P-Cardiology Admission Diagnosis COVID-19 pneumonia Acute respiratory failure Non-ST elevation myocardial infarction Hypertension Assessment/Plan COVID-19 pneumonia, acute respiratory failure, ventilator dependent, improving, chest x-ray showed significant improvement, failed weaning on March 16, 2021. Managed by medical team Ventilator dependent respiratory failure, multiple comorbid condition. Overall poor prognosis, consider tracheostomy Non-ST elevation myocardial infarction, conservative management was recommended, has been followed by Dr. Funes. Continue to monitor Congestive heart failure, acute on chronic left ventricular systolic dysfunction, responding to diuretics. Maintained on Lasix 80 mg twice daily Hypertension, blood pressure is better controlled today. Continue to monitor Maintained on Coreg 6.25 twice daily and lisinopril 5 mg daily, continue to monitor blood pressure Morbid obesity, BMI 60 History of noncompliance with medications. LADAN AKINS MD Mar 17, 2021 10:15
[2021-03-17] MEDS: MIDAZOLAM DRIP PRE-MIX 100 ML IV SCH (10:19)
[2021-03-17] MEDS: VASOPRESSIN INJECTION 20 UNIT in NS (IVPB) 100 ML IV SCH ×2 (10:31→21:47)
--- NOTE | 2021-03-17 10:46 | Tele-ICU Progress Note ---
Subjective Date Seen by a Provider: Mar 17, 2021 Time Seen by a Provider: 10:44 Sepsis Event Evaluation Height, Weight, BMI Height: 6'3.00" Weight: 401lbs. 0.0oz. 181.677672me; 60.27 BMI Method:Actual Focused Exam Time of Focused Exam: 21:25 Exam Exam Patient acknowledged, consented, and participated in this virtual visit which was conducted using real time audio/video Vital Signs Date Time Temp Pulse Resp B/P (MAP) Pulse Ox O2 Delivery O2 Flow Rate FiO2 03/17/21 10:31 70 103/65 03/17/21 10:28 70 23 95 40 03/17/21 10:19 67 18 103/65 03/17/21 10:00 67 18 103/65 95 Mechanical Ventilator 40.00 03/17/21 09:10 40 03/17/21 09:00 67 18 103/67 96 Mechanical Ventilator 40.00 03/17/21 08:43 96 Mechanical Ventilator 40 03/17/21 08:20 69 96/73 03/17/21 08:20 69 96/73 03/17/21 08:00 36.3 03/17/21 08:00 71 18 108/68 95 Mechanical Ventilator 40.00 03/17/21 07:00 69 18 96/73 95 Mechanical Ventilator 40.00 03/17/21 07:00 74 03/17/21 06:57 71 20 95 40 03/17/21 06:00 67 18 107/71 97 Mechanical Ventilator 40.00 03/17/21 05:30 40 03/17/21 05:00 67 18 105/64 97 Mechanical Ventilator 40.00 03/17/21 04:00 96 Mechanical Ventilator 40 03/17/21 04:00 36.6 Mechanical Ventilator 40.00 03/17/21 04:00 67 18 110/67 97 Mechanical Ventilator 40.00 03/17/21 03:15 69 18 94 40 03/17/21 03:00 68 18 100/63 95 Mechanical Ventilator 40.00 03/17/21 02:00 71 18 101/66 94 Mechanical Ventilator 40.00 03/17/21 01:33 40 03/17/21 01:00 75 18 108/68 93 Mechanical Ventilator 40.00 03/17/21 01:00 75 03/17/21 00:00 70 18 101/61 96 Mechanical Ventilator 40.00 03/17/21 00:00 36.9 Mechanical Ventilator 40.00 03/16/21 23:59 92 Mechanical Ventilator 40 03/16/21 23:00 73 18 103/64 95 Mechanical Ventilator 40.00 03/16/21 22:00 75 18 104/66 92 Mechanical Ventilator 40.00 03/16/21 21:33 40 03/16/21 21:28 74 18 93 40 03/16/21 21:20 74 106/52 03/16/21 21:00 74 18 102/62 94 Mechanical Ventilator 40.00 03/16/21 20:00 94 Mechanical Ventilator 40 03/16/21 20:00 71 18 106/69 96 Mechanical Ventilator 40.00 03/16/21 20:00 37.2 Mechanical Ventilator 40.00 03/16/21 19:00 75 18 95 40 03/16/21 19:00 75 18 103/67 96 Mechanical Ventilator 40.00 03/16/21 19:00 75 03/16/21 18:37 77 18 116/69 03/16/21 18:00 77 18 116/69 96 Mechanical Ventilator 40.00 03/16/21 17:29 77 115/73 03/16/21 17:14 40 03/16/21 17:00 77 18 115/73 96 Mechanical Ventilator 40.00 03/16/21 16:00 37.5 03/16/21 16:00 78 18 112/70 95 Mechanical Ventilator 40.00 03/16/21 15:21 95 Mechanical Ventilator 45 03/16/21 15:10 80 18 95 45 03/16/21 15:00 81 18 113/72 94 Mechanical Ventilator 40.00 03/16/21 14:00 84 18 120/78 97 Mechanical Ventilator 40.00 03/16/21 13:05 40 03/16/21 13:00 83 27 129/82 97 Mechanical Ventilator 40.00 03/16/21 12:50 80 03/16/21 12:00 82 18 130/83 97 Mechanical Ventilator 40.00 03/16/21 12:00 37.5 03/16/21 11:36 98 Mechanical Ventilator 40 03/16/21 11:27 81 123/75 03/16/21 11:08 81 20 96 40 03/16/21 11:00 82 19 123/75 97 Mechanical Ventilator 40.00 I & O 03/17/21 07:00 Intake Total 1470 ml Output Total 4850 ml Balance -3380 ml Height & Weight Height: 6'3.00" Weight: 401lbs. 0.0oz. 181.580494xh; 60.27 BMI Method:Actual General Appearance: Chronically ill, Obese, Other (Sedated and intubated) Respiratory: Decreased Breath Sounds Cardiovascular: Regular Rate, Rhythm Capillary Refill: Less Than 3 Seconds Peripheral Pulses: 2+ Radial Pulses (R), 2+ Radial Pulses (L) Gastrointestinal: normal bowel sounds, non tender, soft, no organomegaly Skin: Other (angioedema of lips) Results Lab Laboratory Tests 03/16/21 04:00 03/17/21 04:33 Assessment/Plan Assessment/Plan Tele-ICU Physician , Progress Note ) Available chart/ vitals / labs / Images reviewed Video assessment done using teleICU camera, rest of exam as per RN Discussed with RN , EXAM PER RN Events overnight : febrilke FiO2 - 45% I/O = neg 1300 Drips: Pressors: , hemodynamically stable Sedation gtt: propofol 10 versed 6 ( RASS -2 ) fent prn VENT SETTINGS and ABG reviewed Not candidate for SBT today REVIEWED Cardiovascular Stability / Sedation Score / FI02/PEEP / ABG / CXR Consultants: rashad Hospital course: 03/09 - COVID PNA , ( post J&J) DIFFICULT INTUBATION 03/10 - peep 12 , 70% 03/11 -peep 12 70% , increased edema of lips and tongue - INCREASED DECARDONE TO 10 q6H 03/12 - 100% peep 20 03/13- 80/+14- OFF DECARDONE 03/15- 60 % +10 03/16- 40% +10, can not do cuff leak test - copious oral secretions - scopalamine patch started A/P AHRF / ARDS due to severe COVID19 - Intubated 03/09 in ER -AC 18 - 500 ( 6cc/kg =480) 40 % +10 CUFF LEAK - WAS NOT DONE - consernes for copious oral secretions - WILL BE VERY CAUTION WITH EXTUBATION ATTEMPTS IF LEAK IS LOW - attempts to decrease sedations - not follow commands, but moves all 4 Difficult intubation in ER - done by anesthesiology -appears to be old tracheostomy scar in place as per noted with redundant scar tissue from previous tracheostomy - in ER c/o facial swelling 5 days ( taken Benadryl ) - as per RN exam 03/11 - increased edema of lips and tongue - INCREASED DECARDONE TO 10 q6H - OFF DECARDONE 03/13- resumed 03/16 6qd [id number]-[id number]-7/COVID-19 PNA ( Symptom onset ~? DX Received J&J vaccine --Remdesivir x1 --Dexamethasone - DECARDONE TO 10 q6H 03/11--03/13 , will resume decadrone covid dose 03/16 -Hypercoagulable state , thrombotic microangiopathy, DDIMER low on amd 03/12 -> lovenox ppx dose 60 bid Suspected superimposed bact PNA ( flu neg) -empiric abx Zosyn and Vanco started on 03/10 Cx sputum + STAPH MSSA CAD, stent 2007 - ECHO 03/10= EF 45% - cont diuresis Hyperglycemia - ISS , close f/up on steroids Chronic pain syndrome - baclofen, hydrocodone PROCESS DEVELOPER HTN morbid obesity Elevated TGL - minimal propofol Lines : R IJ 03/09 (Central Line Necessity Reviewed) Haddad: + OG: Nutrition: TF - tolerates Analgesia: Anxiety/ delirium VTE Prophylaxis: zully 60 bid Stress Ulcer Prophylaxis: ppi Glycemic Control: Plans in collaboration with bedside consultants and IM MDs. Discussed with RN to reach out if any questions or concerns A total of 35 minutes of critical care time was devoted to this patient today, required to treat and/or prevent further deterioration of critical care condition ( as above ) . ÓSCAR DALLAS MD Mar 17, 2021 10:46
[2021-03-17] MEDS: ROSUVASTATIN 20 MG (CRESTOR) TABLET PO SCH (20:26)
[2021-03-18] MEDS: MIDAZOLAM DRIP PRE-MIX 100 ML IV SCH ×2 (00:01→10:08)
[2021-03-18] MEDS: PROPOFOL DRIP (ICU) 100 ML IV SCH ×4 (01:47→12:52)
[2021-03-18] MEDS: NOREPINEPHRINE 8 MG/250 ML 250 ML IV SCH ×4 (01:52→21:13)
[2021-03-18 02:42] VITALS: BP 109/72
[2021-03-18] MEDS: RT-ALBUTEROL HFA 8.5 GM INHALER IH SCH ×6 (02:42→22:34)
[2021-03-18] MEDS: D5 LR IV SOLUTION 1,000 ML IV SCH ×2 (03:12→19:14)
[2021-03-18] MEDS: PIPERACILLIN SODIUM/TAZOBACTAM 4.5 GM in NS (IVPB) 100 ML IV SCH ×3 (04:35→21:11)
[2021-03-18 04:58] LABS: BASOPHILS % (AUTO) 0 % (0-10); EOSINOPHILS # (AUTO) 0.3 10^3/uL (0.0-0.3); EOSINOPHILS % (AUTO) 2 % (0-10); HEMATOCRIT 50 % (40-54); HEMOGLOBIN 15.2 g/dL (13.3-17.7); LYMPHOCYTES # (AUTO) 2.6 10^3/uL (1.0-4.0); LYMPHOCYTES % (AUTO) 18 % (12-44); MEAN CORPUSCULAR HEMOGLOBIN 31 pg (25-34); MEAN CORPUSCULAR HGB CONC 31 g/dL (32-36); MEAN CORPUSCULAR VOLUME 100 fL (80-99); MEAN PLATELET VOLUME 10.4 fL (9.0-12.2); MONOCYTES # (AUTO) 1.6 10^3/uL (0.0-1.0); MONOCYTES % (AUTO) 11 % (0-12); NEUTROPHILS % (AUTO) 69 % (42-75); PLATELET COUNT 228 10^3/uL (130-400); WHITE BLOOD COUNT 14.5 10^3/uL (4.3-11.0)
[2021-03-18 05:01] LABS: ABG BASE EXCESS 10.2 MMOL/L (-2.5-2.5); ABG OXYGEN SATURATION 86 % (94-100); ABG PCO2 59 MMHG (35-45); ABG PO2 52 MMHG (79-93); ABG TCO2 37.2 MMOL/L (21.0-31.0)
[2021-03-18 05:06] LABS: ALLENS TEST POSITIVE; INSPIRED O2 40; PATIENT TEMP 36.7; VENTILATOR YES
[2021-03-18 05:39] LABS: ALBUMIN 3.1 GM/DL (3.2-4.5); POTASSIUM 3.5 MMOL/L (3.6-5.0)
[2021-03-18] MEDS: CATHETER FLUSH 10 ML SYR IV SCH ×3 (05:40→22:09)
[2021-03-18] MEDS: KCL 20 MEQ TAB (K-DUR) PO SCH (05:40)
[2021-03-18 05:41] LABS: CALCIUM 8.7 MG/DL (8.5-10.1)
[2021-03-18 05:42] LABS: TOTAL PROTEIN 6.5 GM/DL (6.4-8.2)
[2021-03-18 05:44] LABS: BILIRUBIN,TOTAL 0.5 MG/DL (0.1-1.0)
[2021-03-18 05:45] LABS: PHOSPHORUS 3.1 MG/DL (2.3-4.7)
[2021-03-18 05:46] LABS: CREATININE SERUM 0.73 MG/DL (0.60-1.30)
[2021-03-18 05:48] LABS: MAGNESIUM 2.3 MG/DL (1.6-2.4)
[2021-03-18] MEDS: inSUlin ASPART (NovoLOG) 1 UNIT/0.01 ML (CHARGE PER UNIT) SC SCH ×3 (05:57→18:00)
[2021-03-18] MEDS: MAGNESIUM 1 GM/100 ML IVPB 100 ML IV SCH (05:57)
[2021-03-18] MEDS: POTASSIUM CL 10MEQ/50ML IVPB 50 ML IV SCH ×3 (06:20→10:04)
[2021-03-18] MEDS: FUROSEMIDE 40 MG/4 ML INJ (LASIX) IVP SCH (06:55)
[2021-03-18 07:32] VITALS: BP 111/72
[2021-03-18] MEDS: PANTOPRAZOLE 40 MG (PROTONIX) VIAL IV SCH (10:06)
[2021-03-18] MEDS: FAMOTIDINE 20MG/2ML IV (PEPCID) IVP SCH (10:06)
[2021-03-18] MEDS: ENOXAPARIN 60 MG/0.6 ML (LOVENOX) SYR SQ SCH ×2 (10:06→21:12)
[2021-03-18] MEDS: MICONAZOLE 2% POWDER (DESENEX AF) 90 GM TOP SCH ×4 (10:07→21:12)
[2021-03-18] MEDS: TICAGRELOR 90 MG TABLET (BRILINTA) PO SCH ×2 (10:07→21:12)
[2021-03-18] MEDS: ASPIRIN 81 MG CHEW (CHILDREN'S ASA) PO SCH (10:07)
--- NOTE | 2021-03-18 10:19 | Cardiology Progress Note ---
Progress Note-Cardiology Events since last exam Date Seen by Provider: Mar 18, 2021 Time Seen by Provider: 10:17 Events since last exam I am following him due to probable non-ST elevation myocardial infarction with superimposed mild left ventricular systolic dysfunction and heart failure with reduced ejection fraction on top of Covid infection. He remains in the intensive care unit intubated and sedated. His lisinopril was discontinued due to his lip swelling. When the nurses try a sedation holiday, the patient becomes very agitated and starts thrashing around in the bed. He has not yet been tried on Precedex. He is not requiring any vasopressors. His oxygenation has improved. I viewed the patient from his doorway. I spoke with his nurse of today. Certain portions of this document may have been dictated utilizing voice recognition technology. Inherent to this technology, typographical and gra mmatical errors may exist. As much as I am diligent to identify and correct these mistakes, some errors may remain in the document. Vitals Last set of Vitals Signs Vital Signs 03/18/21 03/18/21 03/18/21 03/18/21 06:00 08:00 10:08 10:56 Temp 36.2 Pulse 69 Resp 17 B/P (MAP) 108/70 Pulse Ox 96 O2 Delivery Mechanical Ventilator O2 Flow Rate 50.00 FiO2 50 Labs Labs Laboratory Tests 03/18/21 04:35 Exam Vital Signs Vital Signs Date Time Temp Pulse Resp B/P (MAP) Pulse Ox O2 Delivery O2 Flow Rate FiO2 03/18/21 10:56 69 17 96 50 03/18/21 10:08 108/70 03/18/21 08:00 36.2 03/18/21 06:00 Mechanical Ventilator 50.00 Physical Exam Due to the patient's COVID status, I viewed the patient from the doorway. He is morbidly obese. General: The patient is intubated and sedated. HENT: Normocephalic. Atraumatic. Respiratory: Symmetrical expansion bilaterally. Skin: There is no pallor. Neurologic: Intubated and sedated. Psychiatric: Not obtainable due to clinical status. Labs Laboratory Tests Test 03/17/21 12:01 03/17/21 17:43 03/17/21 23:58 03/18/21 04:35 Range/Units Glucometer 114 H 123 H 74 70-110 MG/DL White Blood Count 14.5 H 4.3-11.0 10^3/uL Red Blood Count 4.98 4.30-5.52 10^6/uL Hemoglobin 15.2 13.3-17.7 g/dL Hematocrit 50 40-54 % Mean Corpuscular Volume 100 H 80-99 fL Mean Corpuscular Hemoglobin 31 25-34 pg Mean Corpuscular Hemoglobin Concent 31 L 32-36 g/dL Red Cell Distribution Width 13.8 10.0-14.5 % Platelet Count 228 130-400 10^3/uL Mean Platelet Volume 10.4 9.0-12.2 fL Immature Granulocyte % (Auto) 0 % Neutrophils (%) (Auto) 69 42-75 % Lymphocytes (%) (Auto) 18 12-44 % Monocytes (%) (Auto) 11 0-12 % Eosinophils (%) (Auto) 2 0-10 % Basophils (%) (Auto) 0 0-10 % Neutrophils # (Auto) 10.0 H 1.8-7.8 10^3/uL Lymphocytes # (Auto) 2.6 1.0-4.0 10^3/uL Monocytes # (Auto) 1.6 H 0.0-1.0 10^3/uL Eosinophils # (Auto) 0.3 0.0-0.3 10^3/uL Basophils # (Auto) 0.0 0.0-0.1 10^3/uL Immature Granulocyte # (Auto) 0.1 0.0-0.1 10^3/uL Blood Gas Puncture Site RIGHT RADIAL Blood Gas Patient Temperature 36.7 Arterial Blood pH 7.40 7.37-7.43 Arterial Blood Partial Pressure CO2 59 H 35-45 MMHG Arterial Blood Partial Pressure O2 52 L 79-93 MMHG Arterial Blood HCO3 35 H 23-27 MMOL/L Arterial Blood Total CO2 37.2 H 21.0-31.0 MMOL/L Arterial Blood Oxygen Saturation 86 L 94-100 % Arterial Blood Base Excess 10.2 H -2.5-2.5 MMOL/L Ignacio Test POSITIVE Blood Gas Ventilator Setting YES Blood Gas Inspired Oxygen 40 Sodium Level 144 135-145 MMOL/L Potassium Level 3.5 L 3.6-5.0 MMOL/L Chloride Level 102 98-107 MMOL/L Carbon Dioxide Level 30 21-32 MMOL/L Anion Gap 12 5-14 MMOL/L Blood Urea Nitrogen 24 H 7-18 MG/DL Creatinine 0.73 0.60-1.30 MG/DL Estimat Glomerular Filtration Rate 112 BUN/Creatinine Ratio 33 Glucose Level 121 H 70-105 MG/DL Calcium Level 8.7 8.5-10.1 MG/DL Corrected Calcium 9.4 8.5-10.1 MG/DL Phosphorus Level 3.1 2.3-4.7 MG/DL Magnesium Level 2.3 1.6-2.4 MG/DL Total Bilirubin 0.5 0.1-1.0 MG/DL Aspartate Amino Transf (AST/SGOT) 34 5-34 U/L Alanine Aminotransferase (ALT/SGPT) 58 H 0-55 U/L Alkaline Phosphatase 56 40-136 U/L Total Protein 6.5 6.4-8.2 GM/DL Albumin 3.1 L 3.2-4.5 GM/DL Triglycerides Level 232 H <150 MG/DL Diagnosis/Problems Diagnosis/Problems (1) Non-ST elevation myocardial infarction (NSTEMI), initial care episode Status: Acute Assessment & Plan: He appears to have suffered a non-ST elevation myocardial infarction. There was no evidence of ST elevation on his electrocardiograms. Unfortunately, due to his morbid obesity, his weight is above the limit of our cardiac catheterization table. As such, the best we can do for this patient at this point in time is medical management. He received therapeutic dosing of enoxaparin for 5 days and I changed this over to prophylactic dosing for deep venous thrombosis on 03/15. I restarted ticagrelor that he was supposed to be taking at home and also added low-dose aspirin. I also started low-dose carvedilol and intensive dose statin medication. His clinical course will likely be complicated due to the superimposed Covid infection. (2) Cardiomyopathy Status: Acute Assessment & Plan: His echocardiogram from this admission showed possible mild left ventricular systolic dysfunction but was a very technically difficult study. We will continue guideline directed medical therapy as tolerated by his blood pressure and renal function. He is on carvedilol. YUDI inhibitor was discontinued due to swelling of his lips with possible concern for angioedema. We can consider adding hydralazine and nitrates but his blood pressure is running on the low side so I will hold off on adding these medications at this time. (3) Acute HFrEF (heart failure with reduced ejection fraction) Status: Acute Assessment & Plan: His chest x-rays had showed evidence of pulmonary congestion but was improved on 03/15 and again today. I started him on IV furosemide twice daily on 03/11 and this has now been reduced to once daily. We will need to monitor his renal function closely. We will continue carvedilol. (4) Primary hypertension Status: Chronic Assessment & Plan: His blood pressures have been trending upwards. I started low-dose carvedilol on 03/10. I will slowly increase the dose as tolerated by his blood pressure. I would avoid rapid up titration of his antihypertensive medication or he may develop iatrogenic hypotension. (5) Noncompliance with medication regimen Assessment & Plan: He has a reported history of noncompliance with his medications. This is probably contributing to his current clinical situation. (6) Morbid obesity Status: Chronic Assessment & Plan: Unfortunately, due to his morbid obesity, he is above the weight limit for our cardiac catheterization table as outlined above. ROB CANTOR JR, MD Mar 18, 2021 10:19
[2021-03-18 10:56] VITALS: BP 108/70
--- NOTE | 2021-03-18 11:01 | Diagnostic Imaging Report ---
Indication: Shortness of air and cough. TIME OF EXAM: 10:51 AM Correlation is made with prior chest 03/15/2021. Heart remains enlarged. ET tube has tip above the jonnie. NG tube appears to pass below the diaphragm. There is a right-sided line with tip overlying the upper SVC. Lungs remain clear although the left base is obscured by the enlarged heart. No effusion or pneumothorax is seen. IMPRESSION: Stable chest. No acute cardiopulmonary process is detected. Dictated by: Dictated on workstation # [id number]
[2021-03-18] MEDS: VASOPRESSIN INJECTION 20 UNIT in NS (IVPB) 100 ML IV SCH ×2 (11:15→20:02)
--- NOTE | 2021-03-18 14:24 | Tele-ICU Progress Note ---
Subjective Date Seen by a Provider: Mar 18, 2021 Time Seen by a Provider: 14:22 Sepsis Event Evaluation Height, Weight, BMI Height: 6'3.00" Weight: 401lbs. 0.0oz. 181.232317lk; 60.27 BMI Method:Actual Focused Exam Time of Focused Exam: 21:25 Exam Exam Patient acknowledged, consented, and participated in this virtual visit which was conducted using real time audio/video Vital Signs Date Time Temp Pulse Resp B/P (MAP) Pulse Ox O2 Delivery O2 Flow Rate FiO2 03/18/21 13:00 81 03/18/21 12:52 87 03/18/21 12:52 87 03/18/21 12:00 79 143/96 92 Mechanical Ventilator 50.00 03/18/21 11:32 35.9 03/18/21 11:00 70 18 123/86 96 Mechanical Ventilator 50.00 03/18/21 10:56 69 17 96 50 03/18/21 10:08 68 18 108/70 03/18/21 10:00 68 19 108/70 96 Mechanical Ventilator 50.00 03/18/21 09:00 67 19 111/72 95 Mechanical Ventilator 50.00 03/18/21 08:00 36.2 03/18/21 08:00 68 18 109/71 94 Mechanical Ventilator 50.00 03/18/21 07:32 69 18 91 50 03/18/21 07:00 66 25 111/72 93 Mechanical Ventilator 50.00 03/18/21 07:00 65 03/18/21 06:00 69 18 100/64 91 Mechanical Ventilator 50.00 03/18/21 05:39 50 03/18/21 05:00 71 18 132/79 93 Mechanical Ventilator 50.00 03/18/21 04:49 Mechanical Ventilator 50.00 03/18/21 04:45 36.7 03/18/21 04:00 93 Mechanical Ventilator 40 03/18/21 04:00 65 18 127/86 92 Mechanical Ventilator 40.00 03/18/21 03:00 64 18 104/71 93 Mechanical Ventilator 40.00 03/18/21 02:42 65 18 94 40 03/18/21 02:00 68 18 111/75 94 Mechanical Ventilator 40.00 03/18/21 01:48 40 03/18/21 01:00 68 03/18/21 01:00 68 18 93/61 91 Mechanical Ventilator 40.00 03/18/21 00:13 36.6 03/18/21 00:00 94 Mechanical Ventilator 40 03/18/21 00:00 69 18 113/46 96 Mechanical Ventilator 40.00 03/17/21 23:00 68 18 121/79 94 Mechanical Ventilator 40.00 03/17/21 22:00 67 18 103/72 94 Mechanical Ventilator 40.00 03/17/21 22:00 40 03/17/21 21:54 Mechanical Ventilator 40.00 03/17/21 21:46 65 18 96 40 03/17/21 21:00 68 18 104/68 97 Mechanical Ventilator 60.00 03/17/21 20:38 36.2 Mechanical Ventilator 60.00 03/17/21 20:24 70 105/70 03/17/21 20:00 98 Mechanical Ventilator 60 03/17/21 20:00 61 18 105/70 97 Mechanical Ventilator 70.00 03/17/21 19:00 Mechanical Ventilator 70.00 03/17/21 19:00 64 18 102/67 96 Mechanical Ventilator 70.00 03/17/21 19:00 64 03/17/21 18:45 60 18 100 70 03/17/21 18:20 64 103/63 03/17/21 18:00 64 18 103/63 100 Mechanical Ventilator 40.00 03/17/21 17:57 40 03/17/21 17:00 67 18 103/66 100 Mechanical Ventilator 40.00 03/17/21 16:00 64 18 98/62 99 Mechanical Ventilator 40.00 03/17/21 15:55 98 Mechanical Ventilator 40 03/17/21 15:39 36.2 03/17/21 15:00 72 18 114/69 98 Mechanical Ventilator 40.00 03/17/21 14:38 74 102/65 03/17/21 14:38 74 102/65 03/17/21 14:29 36.3 74 99 100 03/17/21 14:26 74 18 99 100 I & O 03/18/21 07:00 Intake Total 2645 ml Output Total 3575 ml Balance -930 ml Height & Weight Height: 6'3.00" Weight: 401lbs. 0.0oz. 181.579442nm; 60.27 BMI Method:Actual General Appearance: Chronically ill, Obese, Other (Sedated and intubated) Respiratory: Decreased Breath Sounds Cardiovascular: Regular Rate, Rhythm Capillary Refill: Less Than 3 Seconds Peripheral Pulses: 2+ Radial Pulses (R), 2+ Radial Pulses (L) Gastrointestinal: normal bowel sounds, non tender, soft, no organomegaly Skin: Other (angioedema of lips) Results Lab Laboratory Tests 03/17/21 04:33 03/18/21 04:35 Assessment/Plan Assessment/Plan Tele-ICU Physician , Progress Note ) Available chart/ vitals / labs / Images reviewed Video assessment done using teleICU camera, rest of exam as per RN Discussed with RN , EXAM PER RN Events overnight : febrilke FiO2 - 50% I/O = neg 500 Drips: Pressors: , hemodynamically stable Sedation gtt: propofol 10 versed 6 ( RASS -2 ) fent prn VENT SETTINGS and ABG reviewed Not candidate for SBT today REVIEWED Cardiovascular Stability / Sedation Score / FI02/PEEP / ABG / CXR Consultants: rashad Hospital course: 03/09 - COVID PNA , ( post J&J) DIFFICULT INTUBATION 03/10 - peep 12 , 70% 03/11 -peep 12 70% , increased edema of lips and tongue - INCREASED DECARDONE TO 10 q6H 03/12 - 100% peep 20 03/13- 80/+14- OFF DECARDONE 03/15- 60 % +10 03/16- 40% +10, can not do cuff leak test - copious oral secretions - scopalamine patch started 03/18- 50% +8 , starting precedex A/P AHRF / ARDS due to severe COVID19 - Intubated 03/09 in ER -AC 18 - 500 ( 6cc/kg =480) -50% +8 , starting precedex, trying to wean off propofol , prn pain meds ( with chronic pain syndrome ) - follow CUFF LEAK - WAS NOT DONE - copious oral secretions - WILL BE VERY CAUTION WITH EXTUBATION ATTEMPTS IF LEAK IS LOW - attempts to decrease sedations - not follow commands, but moves all 4 Difficult intubation in ER - done by anesthesiology -appears to be old tracheostomy scar in place as per noted with redundant scar tissue from previous tracheostomy - in ER c/o facial swelling 5 days ( taken Benadryl ) - as per RN exam 03/11 - increased edema of lips and tongue - INCREASED DECARDONE TO 10 q6H - OFF DECARDONE 03/13- resumed 03/16 6qd - consider total 10 days , then stop LURZ-Apxedsfgzki-2/COVID-19 PNA ( Symptom onset ~? DX Received J&J vaccine --Dexamethasone -Hypercoagulable state , thrombotic microangiopathy, DDIMER low on amd 03/12 -> lovenox ppx dose 60 bid Suspected superimposed bact PNA ( flu neg) -empiric abx Zosyn and Vanco started on 03/10--03/20 planned Cx sputum + STAPH MSSA- OFF VANCO , CAD, stent 2007 - ECHO 03/10= EF 45% - cont diuresis Hyperglycemia - ISS , close f/up on steroids Chronic pain syndrome - baclofen, hydrocodone TEST PREPARER HTN morbid obesity Elevated TGL - minimal propofol Epistaxix - RIGHT nostril 03/18 - spontaneously stopped Lines : R IJ 03/09 (Central Line Necessity Reviewed) Haddad: + OG: Nutrition: TF - tolerates Analgesia: Anxiety/ delirium VTE Prophylaxis: zully 60 bid Stress Ulcer Prophylaxis: ppi Glycemic Control: Plans in collaboration with bedside consultants and IM MDs. Discussed with RN to reach out if any questions or concerns A total of 35 minutes of critical care time was devoted to this patient today, required to treat and/or prevent further deterioration of critical care co ndition ( as above ) . ÓSCAR DALLAS MD Mar 18, 2021 14:24
--- NOTE | 2021-03-18 14:36 | Progress Note ---
Subjective Subjective/Events-last exam Afebrile, no acute events. Minimal ventilator support, but continued facial swelling and concern for airway difficulties, gets agitated when sedation is decreased. Lisinopril held yesterday due to continued swelling and possible angioedema. Focused Exam Time of Focused Exam: 21:25 Objective Exam Last Set of Vital Signs Vital Signs Date Time Temp Pulse Resp B/P (MAP) Pulse Ox O2 Delivery O2 Flow Rate FiO2 03/18/21 13:00 81 03/18/21 12:00 143/96 92 Mechanical Ventilator 50.00 03/18/21 11:32 35.9 03/18/21 11:00 18 03/18/21 10:56 50 Capillary Refill : Less Than 3 Seconds I&O Intake and Output 03/18/21 00:00 Intake Total 2245 ml Output Total 2700 ml Balance -455 ml Intake Oral 0 ml IV Total 700 ml Tube Feeding 720 ml Other 825 ml Output Urine Total 2700 ml General: Other (sedated, intubated) HEENT: Other (lips large, purplish, dark scab below right eye) Lungs: Clear to Auscultation, Normal Air Movement Heart: Regular Rate, No Murmurs Abdomen: Normal Bowel Sounds, Soft Extremities: No Edema Results/Procedures Lab Laboratory Tests 03/17/21 17:43: Glucometer 123H 03/17/21 23:58: Glucometer 74 03/18/21 04:35: White Blood Count 14.5H, Red Blood Count 4.98, Hemoglobin 15.2, Hematocrit 50, Mean Corpuscular Volume 100H, Mean Corpuscular Hemoglobin 31, Mean Corpuscular Hemoglobin Concent 31L, Red Cell Distribution Width 13.8, Platelet Count 228, Mean Platelet Volume 10.4, Immature Granulocyte % (Auto) 0, Neutrophils (%) (Auto) 69, Lymphocytes (%) (Auto) 18, Monocytes (%) (Auto) 11, Eosinophils (%) (Auto) 2, Basophils (%) (Auto) 0, Neutrophils # (Auto) 10.0H, Lymphocytes # (Auto) 2.6, Monocytes # (Auto) 1.6H, Eosinophils # (Auto) 0.3, Basophils # (Auto) 0.0, Immature Granulocyte # (Auto) 0.1, Blood Gas Puncture Site RIGHT RADIAL, Blood Gas Patient Temperature 36.7, Arterial Blood pH 7.40, Arterial Blood Partial Pressure CO2 59H, Arterial Blood Partial Pressure O2 52L, Arterial Blood HCO3 35H, Arterial Blood Total CO2 37.2H, Arterial Blood Oxygen Saturation 86L, Arterial Blood Base Excess 10.2H, Ignacio Test POSITIVE, Blood Gas Ventilator Setting YES, Blood Gas Inspired Oxygen 40, Sodium Level 144, Potassium Level 3. 5L, Chloride Level 102, Carbon Dioxide Level 30, Anion Gap 12, Blood Urea Nitrogen 24H, Creatinine 0.73, Estimat Glomerular Filtration Rate 112, BUN/Creatinine Ratio 33, Glucose Level 121H, Calcium Level 8.7, Corrected Calcium 9.4, Phosphorus Level 3.1, Magnesium Level 2.3, Total Bilirubin 0.5, Aspartate Amino Transf (AST/SGOT) 34, Alanine Aminotransferase (ALT/SGPT) 58H, Alkaline Phosphatase 56, Total Protein 6.5, Albumin 3.1L, Triglycerides Level 232H 03/18/21 11:18: Glucometer 88 Microbiology 03/10/21 Gram Stain - Final, Complete 03/10/21 Sputum Culture - Final, Complete Usual upper respiratory erick Staphylococcus aureus 03/09/21 Blood Culture - Final, Complete Aerococcus Viridans 03/09/21 Urine Culture - Final, Complete NO GROWTH Assessment/Plan Assessment/Plan (1) Acute on chronic respiratory failure with hypoxia and hypercapnia Status: Acute Assessment & Plan: Ventilator dependent, appreciate [facility] ICU recommendations. Suspect secondary to COVID19 infection with superimposed CHF and pulmonary edema. (2) Facial cellulitis Status: Acute Assessment & Plan: Question of facial cellulitis vs angioedema prior to admission. Completed 5 days of Zosyn, remains on vancomycin. Will resume Zosyn due to growth of aerococcus in blood x 2 and stop vancomycin given negative MRSA swab. 03/18/21- continue zosyn, held lisinopril due to facial swelling/possible angioedema, is on dexamethasone. (3) COVID-19 Status: Acute Assessment & Plan: Unknown onset of symptoms. On dexamethasone day 9, requiring mechanical ventilation. (4) Morbid obesity Status: Chronic (5) Primary hypertension Status: Chronic Assessment & Plan: Initially hypotensive, blood pressure trending back up, appreciate Cardiology management. (6) Non-ST elevation myocardial infarction (NSTEMI), initial care episode Status: Acute Assessment & Plan: Elevated troponin on admit, unable to cath due to weight limit of table, on therapeutic enoxaparin x 5 days, changed back to prophylactic dose per Cardiology, started on ticagrelor. (7) Acute HFrEF (heart failure with reduced ejection fraction) Status: Acute Assessment & Plan: Appreciate Cardiology recommendations, receiving IV lasix, echo with somewhat reduced EF but difficult to evaluate well due to body habitus. (8) DVT prophylaxis Status: Acute Assessment & Plan: Enoxaparin (9) Discharge planning issues Status: Acute Assessment & Plan: 03/15- Called Guerda to update on current status and discuss plans, no answer, voicemail not set up. 03/16- Called Guerda (sister) and updated on status, she denied further questions at this time. 03/17- spoke with Guerda around 0830, discussed no significant changes from yesterday, awaiting [facility] ICU physician plan later this morning. 03/18- Called to update at 1438, no answer. JOANNA FERNÁNDEZ MD Mar 18, 2021 14:36
[2021-03-18 15:01] VITALS: BP 111/72
[2021-03-18] MEDS: DexMEDEtomidine 250 ML DRIP 250 ML IV SCH ×2 (17:12→21:29)
[2021-03-18 19:01] VITALS: BP 167/111
[2021-03-18] MEDS: ROSUVASTATIN 20 MG (CRESTOR) TABLET PO SCH (21:12)
[2021-03-18 22:34] VITALS: BP 182/128
[2021-03-19] MEDS: inSUlin ASPART (NovoLOG) 1 UNIT/0.01 ML (CHARGE PER UNIT) SC SCH ×4 (00:46→17:41)
[2021-03-19] MEDS: DexMEDEtomidine 250 ML DRIP 250 ML IV SCH ×6 (00:50→20:40)
[2021-03-19] MEDS: MIDAZOLAM DRIP PRE-MIX 100 ML IV SCH ×2 (00:51→09:52)
[2021-03-19 02:38] VITALS: BP 188/121
[2021-03-19] MEDS: RT-ALBUTEROL HFA 8.5 GM INHALER IH SCH ×6 (02:38→22:27)
[2021-03-19] MEDS: NOREPINEPHRINE 8 MG/250 ML 250 ML IV SCH ×3 (03:55→16:08)
[2021-03-19] MEDS: PROPOFOL DRIP (ICU) 100 ML IV SCH ×4 (04:11→10:57)
[2021-03-19] MEDS: PIPERACILLIN SODIUM/TAZOBACTAM 4.5 GM in NS (IVPB) 100 ML IV SCH ×3 (04:13→21:13)
[2021-03-19] MEDS: fentaNYL INJ 100 MCG/2 ML AMP IV PRN ×3 (04:14→16:07)
[2021-03-19 04:42] LABS: BASOPHILS % (AUTO) 0 % (0-10); EOSINOPHILS # (AUTO) 0.1 10^3/uL (0.0-0.3); EOSINOPHILS % (AUTO) 1 % (0-10); HEMATOCRIT 52 % (40-54); HEMOGLOBIN 16.1 g/dL (13.3-17.7); LYMPHOCYTES # (AUTO) 2.5 10^3/uL (1.0-4.0); LYMPHOCYTES % (AUTO) 19 % (12-44); MEAN CORPUSCULAR HEMOGLOBIN 30 pg (25-34); MEAN CORPUSCULAR HGB CONC 31 g/dL (32-36); MEAN CORPUSCULAR VOLUME 97 fL (80-99); MEAN PLATELET VOLUME 10.6 fL (9.0-12.2); MONOCYTES # (AUTO) 1.7 10^3/uL (0.0-1.0); MONOCYTES % (AUTO) 13 % (0-12); NEUTROPHILS # (AUTO) 8.5 10^3/uL (1.8-7.8); NEUTROPHILS % (AUTO) 66 % (42-75); PLATELET COUNT 255 10^3/uL (130-400); WHITE BLOOD COUNT 12.9 10^3/uL (4.3-11.0)
[2021-03-19 04:49] LABS: ALBUMIN 3.4 GM/DL (3.2-4.5)
[2021-03-19 04:50] LABS: POTASSIUM 4.7 MMOL/L (3.6-5.0)
[2021-03-19 04:51] LABS: CALCIUM 9.1 MG/DL (8.5-10.1)
[2021-03-19] MEDS: D5 LR IV SOLUTION 1,000 ML IV SCH (04:51)
[2021-03-19 04:52] LABS: TOTAL PROTEIN 7.3 GM/DL (6.4-8.2)
[2021-03-19 04:54] LABS: BILIRUBIN,TOTAL 0.5 MG/DL (0.1-1.0)
[2021-03-19 04:55] LABS: PHOSPHORUS 3.3 MG/DL (2.3-4.7)
[2021-03-19 04:56] LABS: CREATININE SERUM 0.79 MG/DL (0.60-1.30)
[2021-03-19 04:58] LABS: MAGNESIUM 2.3 MG/DL (1.6-2.4)
[2021-03-19] MEDS: MAGNESIUM 1 GM/100 ML IVPB 100 ML IV SCH (05:04)
[2021-03-19] MEDS: VASOPRESSIN INJECTION 20 UNIT in NS (IVPB) 100 ML IV SCH ×2 (05:04→16:08)
[2021-03-19] MEDS: CATHETER FLUSH 10 ML SYR IV SCH ×3 (05:04→22:00)
[2021-03-19] MEDS: POTASSIUM CL 10MEQ/50ML IVPB 50 ML IV SCH (05:04)
[2021-03-19] MEDS: KCL 20 MEQ TAB (K-DUR) PO SCH (05:04)
[2021-03-19 05:53] LABS: ABG BASE EXCESS 9.1 MMOL/L (-2.5-2.5); ABG OXYGEN SATURATION 93 % (94-100); ABG PCO2 54 MMHG (35-45); ABG PH 7.41 (7.37-7.43); ABG PO2 62 MMHG (79-93); ABG TCO2 35.5 MMOL/L (21.0-31.0); ALLENS TEST POSITIVE; INSPIRED O2 60; PATIENT TEMP 38; VENTILATOR YES
[2021-03-19 07:41] VITALS: BP 175/109
--- NOTE | 2021-03-19 08:24 | Cardiology Progress Note ---
Progress Note-Cardiology Events since last exam Date Seen by Provider: Mar 19, 2021 Time Seen by Provider: 08:23 Events since last exam I am following him due to probable non-ST elevation myocardial infarction with superimposed mild left ventricular systolic dysfunction and heart failure with reduced ejection fraction on top of Covid infection. He remains in the intensive care unit intubated and sedated. His lisinopril was discontinued due to his lip swelling. When the nurses try a sedation holiday, the patient becomes very agitated and starts thrashing around in the bed. He was started on Precedex infusion on 03/18 but this has not yet helped with weaning trials. He is not requiring any vasopressors and over the past 24 hours his blood pressure has trended upwards. His oxygenation has improved. I viewed the patient from his doorway. I spoke with his nurse of today. Certain portions of this document may have been dictated utilizing voice recognition technology. Inherent to this technology, typographical and grammatical errors may exist. As much as I am diligent to identify and correct these mistakes, some errors may remain in the document. Vitals Last set of Vitals Signs Vital Signs 03/19/21 03/19/21 03/19/21 07:41 08:03 09:00 Temp 38.3 Pulse 70 Resp 27 B/P (MAP) 127/72 Pulse Ox 96 O2 Delivery Mechanical Ventilator O2 Flow Rate 60.00 FiO2 60 Labs Labs Laboratory Tests 03/19/21 04:15 Exam Vital Signs Vital Signs Date Time Temp Pulse Resp B/P (MAP) Pulse Ox O2 Delivery O2 Flow Rate FiO2 03/19/21 09:00 70 27 127/72 96 Mechanical Ventilator 60.00 03/19/21 08:03 38.3 03/19/21 07:41 60 Physical Exam Due to the patient's COVID status, I viewed the patient from the doorway. General: The patient is intubated and sedated. He is morbidly obese. HENT: Normocephalic. Atraumatic. Respiratory: Symmetrical expansion bilaterally. Skin: There is no pallor. Neurologic: Intubated and sedated. Psychiatric: Not obtainable due to clinical status. Labs Laboratory Tests Test 03/18/21 11:18 03/18/21 18:44 03/18/21 22:52 03/19/21 04:15 Range/Units Glucometer 88 125 H 129 H 70-110 MG/DL White Blood Count 12.9 H 4.3-11.0 10^3/uL Red Blood Count 5.34 4.30-5.52 10^6/uL Hemoglobin 16.1 13.3-17.7 g/dL Hematocrit 52 40-54 % Mean Corpuscular Volume 97 80-99 fL Mean Corpuscular Hemoglobin 30 25-34 pg Mean Corpuscular Hemoglobin Concent 31 L 32-36 g/dL Red Cell Distribution Width 13.4 10.0-14.5 % Platelet Count 255 130-400 10^3/uL Mean Platelet Volume 10.6 9.0-12.2 fL Immature Granulocyte % (Auto) 1 % Neutrophils (%) (Auto) 66 42-75 % Lymphocytes (%) (Auto) 19 12-44 % Monocytes (%) (Auto) 13 H 0-12 % Eosinophils (%) (Auto) 1 0-10 % Basophils (%) (Auto) 0 0-10 % Neutrophils # (Auto) 8.5 H 1.8-7.8 10^3/uL Lymphocytes # (Auto) 2.5 1.0-4.0 10^3/uL Monocytes # (Auto) 1.7 H 0.0-1.0 10^3/uL Eosinophils # (Auto) 0.1 0.0-0.3 10^3/uL Basophils # (Auto) 0.0 0.0-0.1 10^3/uL Immature Granulocyte # (Auto) 0.1 0.0-0.1 10^3/uL Blood Gas Puncture Site RIGHT RADIAL Blood Gas Patient Temperature 38 Arterial Blood pH 7.41 7.37-7.43 Arterial Blood Partial Pressure CO2 54 H 35-45 MMHG Arterial Blood Partial Pressure O2 62 L 79-93 MMHG Arterial Blood HCO3 34 H 23-27 MMOL/L Arterial Blood Total CO2 35.5 H 21.0-31.0 MMOL/L Arterial Blood Oxygen Saturation 93 L 94-100 % Arterial Blood Base Excess 9.1 H -2.5-2.5 MMOL/L Ignacio Test POSITIVE Blood Gas Ventilator Setting YES Blood Gas Inspired Oxygen 60 Sodium Level 143 135-145 MMOL/L Potassium Level 4.7 3.6-5.0 MMOL/L Chloride Level 103 98-107 MMOL/L Carbon Dioxide Level 28 21-32 MMOL/L Anion Gap 12 5-14 MMOL/L Blood Urea Nitrogen 28 H 7-18 MG/DL Creatinine 0.79 0.60-1.30 MG/DL Estimat Glomerular Filtration Rate 110 BUN/Creatinine Ratio 35 Glucose Level 129 H 70-105 MG/DL Calcium Level 9.1 8.5-10.1 MG/DL Corrected Calcium 9.6 8.5-10.1 MG/DL Phosphorus Level 3.3 2.3-4.7 MG/DL Magnesium Level 2.3 1.6-2.4 MG/DL Total Bilirubin 0.5 0.1-1.0 MG/DL Aspartate Amino Transf (AST/SGOT) 23 5-34 U/L Alanine Aminotransferase (ALT/SGPT) 51 0-55 U/L Alkaline Phosphatase 62 40-136 U/L Total Protein 7.3 6.4-8.2 GM/DL Albumin 3.4 3.2-4.5 GM/DL Triglycerides Level 205 H <150 MG/DL Diagnosis/Problems Diagnosis/Problems (1) Non-ST elevation myocardial infarction (NSTEMI), initial care episode Status: Acute Assessment & Plan: He appears to have suffered a non-ST elevation myocardial infarction. There was no evidence of ST elevation on his electrocardiograms. Unfortunately, due to his morbid obesity, his weight is above the limit of our cardiac catheterization table. As such, the best we can do for this patient at this point in time is medical management. He received therapeutic dosing of enoxaparin for 5 days and I changed this over to prophylactic dosing for deep venous thrombosis on 03/15. I restarted ticagrelor that he was supposed to be taking at home and also added low-dose aspirin. I also started low-dose carvedilol and intensive dose statin medication. His clinical course will likely be complicated due to the superimposed Covid infection and his morbid obesity. (2) Cardiomyopathy Status: Acute Assessment & Plan: His echocardiogram from this admission showed possible mild left ventricular systolic dysfunction but was a very technically difficult study. We will continue guideline directed medical therapy as tolerated by his blood pressure and renal function. He is on carvedilol. YUDI inhibitor was discontinued due to swelling of his lips with possible concern for angioedema. For this reason, he is not a good candidate for ARB. Since his blood pressures have been trending upwards, I will increase the dose of carvedilol and add hydralazine. (3) Acute HFrEF (heart failure with reduced ejection fraction) Status: Acute Assessment & Plan: His chest x-rays had showed evidence of pulmonary congestion but was improved on 03/15 and again 03/18. I started him on IV furosemide twice daily on 03/11 and this has now been reduced to once daily on 03/18. We will need to monitor his renal function closely. We will continue carvedilol and hydralazine as above. (4) Primary hypertension Status: Chronic Assessment & Plan: His blood pressures have been trending upwards. I started low-dose carvedilol on 03/10. I will double the dose of carvedilol today and also add low-dose hydralazine every 8 hours. I would avoid rapid up titration of his antihypertensive medication or he may develop iatrogenic hypotension. (5) Noncompliance with medication regimen Assessment & Plan: He has a reported history of noncompliance with his medications. This is probably contributing to his current clinical situation. (6) Morbid obesity Status: Chronic Assessment & Plan: Unfortunately, due to his morbid obesity, he is above the weight limit for our cardiac catheterization table as outlined above. ROB CANTOR JR, MD Mar 19, 2021 08:24
[2021-03-19] MEDS: TICAGRELOR 90 MG TABLET (BRILINTA) PO SCH ×2 (09:48→21:14)
[2021-03-19] MEDS: ACETAMINOPHEN 325 MG TABLET PO PRN ×2 (09:48→21:57)
[2021-03-19] MEDS: ASPIRIN 81 MG CHEW (CHILDREN'S ASA) PO SCH (09:48)
[2021-03-19] MEDS: ENOXAPARIN 60 MG/0.6 ML (LOVENOX) SYR SQ SCH ×2 (09:48→21:14)
[2021-03-19] MEDS: PANTOPRAZOLE 40 MG (PROTONIX) VIAL IV SCH (09:49)
[2021-03-19] MEDS: FAMOTIDINE 20MG/2ML IV (PEPCID) IVP SCH (09:49)
[2021-03-19] MEDS: FUROSEMIDE 40 MG/4 ML INJ (LASIX) IVP SCH (09:49)
[2021-03-19] MEDS: MICONAZOLE 2% POWDER (DESENEX AF) 90 GM TOP SCH ×4 (09:50→21:14)
[2021-03-19 10:48] VITALS: BP 141/90
--- NOTE | 2021-03-19 11:46 | Tele-ICU Progress Note ---
Subjective Date Seen by a Provider: Mar 19, 2021 Time Seen by a Provider: 11:46 Sepsis Event Evaluation Height, Weight, BMI Height: 6'3.00" Weight: 401lbs. 0.0oz. [id number]; 60.27 BMI Method:Actual Focused Exam Time of Focused Exam: 21:25 Exam Exam Patient acknowledged, consented, and participated in this virtual visit which was conducted using real time audio/video Vital Signs Date Time Temp Pulse Resp B/P (MAP) Pulse Ox O2 Delivery O2 Flow Rate FiO2 03/19/21 11:00 39.3 67 22 137/93 91 Mechanical Ventilator 50.00 03/19/21 10:57 64 141/90 03/19/21 10:56 64 141/90 03/19/21 10:48 64 21 93 50 03/19/21 10:18 39.3 03/19/21 10:17 50.00 03/19/21 10:00 39.5 66 22 128/74 97 Mechanical Ventilator 60.00 03/19/21 09:52 68 23 124/79 03/19/21 09:51 68 124/79 03/19/21 09:48 39.5 03/19/21 09:00 70 27 127/72 96 Mechanical Ventilator 60.00 03/19/21 08:03 38.3 03/19/21 08:00 72 24 164/101 92 Mechanical Ventilator 60.00 03/19/21 07:41 69 22 96 60 03/19/21 07:00 68 03/19/21 07:00 67 21 179/110 96 Mechanical Ventilator 60.00 03/19/21 06:00 69 25 182/116 96 Mechanical Ventilator 60.00 03/19/21 05:52 60 03/19/21 05:00 70 21 185/115 97 Mechanical Ventilator 60.00 03/19/21 04:20 38.3 03/19/21 04:00 95 Mechanical Ventilator 60 03/19/21 04:00 70 19 196/124 95 Mechanical Ventilator 60.00 03/19/21 03:00 68 26 191/121 96 Mechanical Ventilator 60.00 03/19/21 02:38 70 22 97 70 03/19/21 02:00 70 23 190/122 95 Mechanical Ventilator 60.00 03/19/21 01:00 70 22 189/130 96 Mechanical Ventilator 60.00 03/19/21 01:00 70 03/19/21 00:52 Mechanical Ventilator 60.00 03/19/21 00:51 70 03/19/21 00:43 36.7 03/19/21 00:00 71 23 181/123 96 Mechanical Ventilator 70.00 03/19/21 00:00 95 Mechanical Ventilator 70 03/18/21 23:00 73 24 178/126 96 Mechanical Ventilator 70.00 03/18/21 22:34 73 18 95 70 03/18/21 22:00 73 25 184/128 94 Mechanical Ventilator 70.00 03/18/21 21:29 72 192/133 03/18/21 21:26 70 03/18/21 21:00 71 22 192/133 97 Mechanical Ventilator 70.00 03/18/21 20:00 95 Mechanical Ventilator 70 03/18/21 20:00 70 28 188/126 97 Mechanical Ventilator 70.00 03/18/21 20:00 37.3 03/18/21 19:01 64 18 90 70 03/18/21 19:00 Mechanical Ventilator 70.00 03/18/21 19:00 65 26 167/111 90 Mechanical Ventilator 70.00 03/18/21 19:00 65 03/18/21 18:00 57 35 142/92 95 Mechanical Ventilator 50.00 03/18/21 17:33 60 03/18/21 17:12 70 115/72 03/18/21 17:00 66 18 120/74 98 Mechanical Ventilator 50.00 03/18/21 16:00 37.4 03/18/21 16:00 67 29 113/71 96 Mechanical Ventilator 50.00 03/18/21 16:00 93 Mechanical Ventilator 60 03/18/21 15:01 70 19 95 50 03/18/21 15:00 70 35 116/68 94 Mechanical Ventilator 50.00 03/18/21 14:00 73 32 117/75 93 Mechanical Ventilator 50.00 03/18/21 13:33 50 03/18/21 13:00 81 03/18/21 13:00 80 124/75 94 Mechanical Ventilator 50.00 03/18/21 12:52 87 03/18/21 12:52 87 03/18/21 12:00 93 Mechanical Ventilator 60 03/18/21 12:00 79 143/96 92 Mechanical Ventilator 50.00 I & O 03/19/21 07:00 Intake Total 2670 ml Output Total 4350 ml Balance -1680 ml Height & Weight Height: 6'3.00" Weight: 401lbs. 0.0oz. 181.903887qx; 60.27 BMI Method:Actual General Appearance: Chronically ill, Obese, Other (Sedated and intubated) Respiratory: Decreased Breath Sounds Cardiovascular: Regular Rate, Rhythm Capillary Refill: Less Than 3 Seconds Peripheral Pulses: 2+ Radial Pulses (R), 2+ Radial Pulses (L) Gastrointestinal: normal bowel sounds, non tender, soft, no organomegaly Skin: Other (angioedema of lips) Results Lab Laboratory Tests 03/18/21 04:35 03/19/21 04:15 Assessment/Plan Assessment/Plan Tele-ICU Physician , Progress Note ) Available chart/ vitals / labs / Images reviewed Video assessment done using teleICU camera, rest of exam as per RN Discussed with RN , EXAM PER RN Events overnight : febrilke FiO2 - 60% I/O = neg 500 Drips: Pressors: , hemodynamically stable Sedation gtt: propofol 10 versed 6 ( RASS -2 ) fent prn VENT SETTINGS and ABG reviewed Not candidate for SBT today REVIEWED Cardiovascular Stability / Sedation Score / FI02/PEEP / ABG / CXR Consultants: cards, ENT Hospital course: 03/09 - COVID PNA , ( post J&J) DIFFICULT INTUBATION 03/10 - peep 12 , 70% 03/11 -peep 12 70% , increased edema of lips and tongue - INCREASED DECARDONE TO 10 q6H 03/12 - 100% peep 20 03/13- 80/+14- OFF DECARDONE 03/15- 60 % +10 03/16- 40% +10, can not do cuff leak test - copious oral secretions - scopalamine patch started 03/18- 50% +8 , starting precedex ,Epistaxix - RIGHT nostril 03/19 - ENT consult , new fever 38 A/P AHRF / ARDS due to severe COVID19 - Intubated 03/09 in ER -AC 18 - 500 ( 6cc/kg =480) -50% +8 , starting precedex, trying to wean off propofol , prn pain meds ( with chronic pain syndrome ) - follow CUFF LEAK test WAS NOT DONE - copious oral secretions - WILL BE VERY CAUTION WITH EXTUBATION ATTEMPTS IF LEAK IS LOW - attempts to decrease sedations - not follow commands, but moves all 4 Difficult intubation in ER - done by anesthesiology -appears to be old tracheostomy scar in place as per noted with redundant scar tissue from previous tracheostomy - in ER c/o facial swelling 5 days ( taken Benadryl ) DECARDONE NACR-Nfvinkksiuz-3/COVID-19 PNA ( Symptom onset ~? 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 Discussed with RN to reach out if any questions or concerns A total of 35 minutes of critical care time was devoted to this patient today, required to treat and/or prevent further deterioration of critical care condition ( as above ) . ÓSCAR DALLAS MD Mar 19, 2021 11:46
--- NOTE | 2021-03-19 12:21 | CONSULTATION REPORT ---
DATE OF SERVICE: ENT CONSULT LOCATION: ICU bed #7 [facility]. REASON FOR CONSULTATION: Possible angioedema. HISTORY OF PRESENT ILLNESS: The patient is a 50-year-old male, who has been in the ICU since 03/09/2021. He was intubated on admission and has remained intubated since that time. There is a question of possible angioedema of the lower lip as well as swelling of the right side of the face. This was noted by the EICU physician. He has not made progress on as far as being extubated. There is a concern about a small oropharynx with possible swelling in the throat as well. Today, he is actually worsened with yesterday requiring a higher level of PEEP. His O2 this morning's blood gas was 62 and his pCO2 remained elevated. He is on no medications potentially that are causative factor in the angioedema. He has had no swelling noted on the left side. He has been noted to have bruising of the right side of the face and the lower lip. Currently, he is sedated because of the ongoing respiratory failure and intubation. No other history is known. PHYSICAL EXAMINATION: GENERAL: He was lying in the bed. He is sedated. He is unresponsive. He has an endotracheal tube in place with an endotracheal tube bullard across his face. Externally, he has moderate swelling of the right cheek with some external bruising on the right lower lip with how he is lying does appear swollen with some bruising on the lip. There was no significant swelling seen on the right. EYES: The eyes did not have any significant swelling around them. NOSE: Clear. He has an NG tube on the right side. ORAL CAVITY: The oral cavity showed the endotracheal tube in place. On evaluation, his tongue showed no swelling. There is no swelling of the soft palate seen. His teeth are in poor condition and he has multiple loose lower teeth. NECK: There is no marked swelling of the neck. There was no mass or adenopathy palpable in the neck. He has a short and thick neck and a large circumference of the neck. IMPRESSION: 1. COVID positive - respiratory failure. 2. Ongoing intubation. 3. Swelling of the right cheek/right lower lip. RECOMMENDATIONS: Findings were discussed with his ICU nurse and the findings are not clinically suggestive of angioedema, what is causing the swelling at this point is unknown. Continued treatment of the respiratory failure was recommended. At this point, intraorally, he has no swelling of the tongue or soft palate to suggest an ongoing allergic process. It is unknown whether the swelling is coming from potentially displacement of the endotracheal tube and setting along with the bullard. If he gets better from respiratory failure standpoint, then I am happy to see him again and reevaluate him if needed prior to extubation. Job ID: [id number] DocumentID: [id number] Dictated Date: 03/19/2021 12:00:00 Director Biomedical Engineering Date: 03/19/2021 12:21:24 Dictated By: NATE RUIZ MD
[2021-03-19] MEDS ORDERED: SCOPOLAMINE PATCH REMOVAL TP NR (12:45)
--- NOTE | 2021-03-19 12:51 | Progress Note ---
Subjective Subjective/Events-last exam Febrile at time of my exam, afebrile prior 24 hours. Continues to have vital sign abnormalities when sedation weaned, trying to increase blood pressure medications to assist with weaning sedation. Focused Exam Time of Focused Exam: 21:25 Objective Exam Last Set of Vital Signs Vital Signs Date Time Temp Pulse Resp B/P (MAP) Pulse Ox O2 Delivery O2 Flow Rate FiO2 03/19/21 12:38 68 03/19/21 12:31 151/99 03/19/21 11:00 39.3 22 91 Mechanical Ventilator 50.00 03/19/21 10:48 50 Capillary Refill : Less Than 3 Seconds I&O Intake and Output 03/19/21 00:00 Intake Total 2170 ml Output Total 3875 ml Balance -1705 ml IV Total 600 ml Tube Feeding 720 ml Other 850 ml Output Urine Total 3875 ml General: Other (sedated, intubated) Lungs: Clear to Auscultation, Normal Air Movement Heart: Regular Rate, No Murmurs Abdomen: Normal Bowel Sounds, Soft Extremities: No Edema Skin: Other (lips large, with lower lip exophytic but appears somewhat improved from yesterday, scabbing around periorbital skin of right eye) Results/Procedures Lab Laboratory Tests 03/18/21 18:44: Glucometer 125H 03/18/21 22:52: Glucometer 129H 03/19/21 04:15: White Blood Count 12.9H, Red Blood Count 5.34, Hemoglobin 16.1, Hematocrit 52, Mean Corpuscular Volume 97, Mean Corpuscular Hemoglobin 30, Mean Corpuscular Hemoglobin Concent 31L, Red Cell Distribution Width 13.4, Platelet Count 255, Mean Platelet Volume 10.6, Immature Granulocyte % (Auto) 1, Neutrophils (%) (Auto) 66, Lymphocytes (%) (Auto) 19, Monocytes (%) (Auto) 13H, Eosinophils (%) (Auto) 1, Basophils (%) (Auto) 0, Neutrophils # (Auto) 8.5H, Lymphocytes # (Auto) 2.5, Monocytes # (Auto) 1.7H, Eosinophils # (Auto) 0.1, Basophils # (Auto) 0.0, Immature Granulocyte # (Auto) 0.1, Blood Gas Puncture Site RIGHT RADIAL, Blood Gas Patient Temperature 38, Arterial Blood pH 7.41, Arterial Blood Partial Pressure CO2 54H, Arterial Blood Partial Pressure O2 62L, Arterial Blood HCO3 34H, Arterial Blood Total CO2 35.5H, Arterial Blood Oxygen Saturation 93L, Arterial Blood Base Excess 9.1H, Ignacio Test POSITIVE, Blood Gas Ventilator Setting YES, Blood Gas Inspired Oxygen 60, Sodium Level 143, Potassium Level 4.7, Chloride Level 103, Carbon Dioxide Level 28, Anion Gap 12, Blood Urea Nitrogen 28H, Creatinine 0.79, Estimat Glomerular Filtration Rate 110, BUN /Creatinine Ratio 35, Glucose Level 129H, Calcium Level 9.1, Corrected Calcium 9.6, Phosphorus Level 3.3, Magnesium Level 2.3, Total Bilirubin 0.5, Aspartate Amino Transf (AST/SGOT) 23, Alanine Aminotransferase (ALT/SGPT) 51, Alkaline Phosphatase 62, Total Protein 7.3, Albumin 3.4, Triglycerides Level 205H 03/19/21 11:07: Glucometer 121H Microbiology 03/10/21 Gram Stain - Final, Complete 03/10/21 Sputum Culture - Final, Complete Usual upper respiratory erick Staphylococcus aureus 03/09/21 Blood Culture - Final, Complete Aerococcus Viridans 03/09/21 Urine Culture - Final, Complete NO GROWTH Assessment/Plan Assessment/Plan (1) Acute on chronic respiratory failure with hypoxia and hypercapnia Status: Acute Assessment & Plan: Ventilator dependent, appreciate [facility] ICU recommendations. Suspect secondary to COVID19 infection with superimposed CHF and pulmonary edema. (2) Facial cellulitis Status: Acute Assessment & Plan: Question of facial cellulitis vs angioedema prior to admission. Completed 5 days of Zosyn, remains on vancomycin. Will resume Zosyn due to growth of aerococcus in blood x 2 and stop vancomycin given negative MRSA swab. 03/19/21- continue zosyn, held lisinopril due to facial swelling/possible angioedema, is on dexamethasone. (3) COVID-19 Status: Acute Assessment & Plan: Unknown onset of symptoms. On dexamethasone day 10. (4) Morbid obesity Status: Chronic (5) Primary hypertension Status: Chronic Assessment & Plan: Initially hypotensive, blood pressure trending back up, appreciate Cardiology management. (6) Non-ST elevation myocardial infarction (NSTEMI), initial care episode Status: Acute Assessment & Plan: Elevated troponin on admit, unable to cath due to weight limit of table, on therapeutic enoxaparin x 5 days, changed back to prophylactic dose per Cardiology, started on ticagrelor. (7) Acute HFrEF (heart failure with reduced ejection fraction) Status: Acute Assessment & Plan: Appreciate Cardiology recommendations, receiving IV lasix, echo with somewhat reduced EF but difficult to evaluate well due to body habitus. (8) DVT prophylaxis Status: Acute Assessment & Plan: Enoxaparin (9) Discharge planning issues Status: Acute Assessment & Plan: 03/15- Called Guerda to update on current status and discuss plans, no answer, voicemail not set up. 03/16- Called Guerda (sister) and updated on status, she denied further questions at this time. 03/17- spoke with Guerda around 0830, discussed no significant changes from yesterday, awaiting [facility] ICU physician plan later this morning. 03/18- Called to update at 1438, no answer. 03/19- Spoke to Guerda and updated JOANNA FERNÁNDEZ MD Mar 19, 2021 12:51
[2021-03-19] MEDS: hydrALAZINE (APRESOLINE) 25 MG TAB PO SCH ×2 (13:57→21:14)
[2021-03-19 14:31] VITALS: BP 177/110
[2021-03-19] MEDS: hydrALAZINE (APESOLINE) 20 MG/ML VIAL IV PRN (18:30)
[2021-03-19 18:37] VITALS: BP 185/113
[2021-03-19] MEDS: ROSUVASTATIN 20 MG (CRESTOR) TABLET PO SCH (21:14)
[2021-03-19 22:27] VITALS: BP 170/101
[2021-03-20] MEDS: hydrALAZINE (APESOLINE) 20 MG/ML VIAL IV PRN
[2021-03-20] MEDS: NOREPINEPHRINE 8 MG/250 ML 250 ML IV SCH ×4 (00:01→18:14)
[2021-03-20] MEDS: DexMEDEtomidine 250 ML DRIP 250 ML IV SCH ×7 (00:04→22:48)
[2021-03-20] MEDS: MIDAZOLAM DRIP PRE-MIX 100 ML IV SCH ×3 (00:04→21:40)
[2021-03-20] MEDS: inSUlin ASPART (NovoLOG) 1 UNIT/0.01 ML (CHARGE PER UNIT) SC SCH ×4 (00:12→17:38)
[2021-03-20] MEDS: PROPOFOL DRIP (ICU) 100 ML IV SCH ×7 (02:17→21:41)
[2021-03-20 02:56] VITALS: BP 169/98
[2021-03-20] MEDS: RT-ALBUTEROL HFA 8.5 GM INHALER IH SCH ×6 (02:56→22:13)
[2021-03-20 04:05] LABS: ABG BASE EXCESS 6.2 MMOL/L (-2.5-2.5); ABG OXYGEN SATURATION 87 % (94-100); ABG PCO2 55 MMHG (35-45); ABG PH 7.38 (7.37-7.43); ABG PO2 65 MMHG (79-93); ABG TCO2 31.9 MMOL/L (21.0-31.0)
[2021-03-20 04:07] LABS: BASOPHILS # (AUTO) 0.1 10^3/uL (0.0-0.1); BASOPHILS % (AUTO) 0 % (0-10); EOSINOPHILS # (AUTO) 0.1 10^3/uL (0.0-0.3); EOSINOPHILS % (AUTO) 0 % (0-10); HEMATOCRIT 53 % (40-54); HEMOGLOBIN 16.3 g/dL (13.3-17.7); LYMPHOCYTES # (AUTO) 2.9 10^3/uL (1.0-4.0); LYMPHOCYTES % (AUTO) 24 % (12-44); MEAN CORPUSCULAR HEMOGLOBIN 30 pg (25-34); MEAN CORPUSCULAR HGB CONC 31 g/dL (32-36); MEAN CORPUSCULAR VOLUME 97 fL (80-99); MEAN PLATELET VOLUME 10.5 fL (9.0-12.2); MONOCYTES # (AUTO) 1.8 10^3/uL (0.0-1.0); MONOCYTES % (AUTO) 15 % (0-12); NEUTROPHILS # (AUTO) 7.2 10^3/uL (1.8-7.8); NEUTROPHILS % (AUTO) 60 % (42-75); PLATELET COUNT 252 10^3/uL (130-400)
[2021-03-20 04:08] LABS: ALLENS TEST YES-POS; INSPIRED O2 50%; PATIENT TEMP 40.1; VENTILATOR YES
[2021-03-20 04:17] LABS: ALBUMIN 3.2 GM/DL (3.2-4.5); POTASSIUM 3.8 MMOL/L (3.6-5.0)
[2021-03-20 04:18] LABS: CALCIUM 8.6 MG/DL (8.5-10.1)
[2021-03-20 04:21] LABS: BILIRUBIN,TOTAL 0.6 MG/DL (0.1-1.0)
[2021-03-20 04:22] LABS: PHOSPHORUS 2.7 MG/DL (2.3-4.7)
[2021-03-20 04:23] LABS: CREATININE SERUM 0.82 MG/DL (0.60-1.30)
[2021-03-20 04:25] LABS: MAGNESIUM 2.2 MG/DL (1.6-2.4)
[2021-03-20] MEDS: VASOPRESSIN INJECTION 20 UNIT in NS (IVPB) 100 ML IV SCH ×2 (05:22→16:17)
[2021-03-20] MEDS: MAGNESIUM 1 GM/100 ML IVPB 100 ML IV SCH (05:58)
[2021-03-20] MEDS: POTASSIUM CL 10MEQ/50ML IVPB 50 ML IV SCH (05:58)
[2021-03-20] MEDS: CATHETER FLUSH 10 ML SYR IV SCH ×3 (05:58→22:26)
[2021-03-20] MEDS: PIPERACILLIN SODIUM/TAZOBACTAM 4.5 GM in NS (IVPB) 100 ML IV SCH ×2 (05:58→13:46)
[2021-03-20] MEDS: KCL 20 MEQ TAB (K-DUR) PO SCH (05:59)
[2021-03-20] MEDS: hydrALAZINE (APRESOLINE) 25 MG TAB PO SCH ×3 (05:59→20:27)
[2021-03-20 06:57] VITALS: BP 181/103
[2021-03-20] MEDS ORDERED: VANCOMYCIN INJECTION 0.1 MG in NS (IVPB) 250 ML IV SCH (08:00)
[2021-03-20] MEDS: FUROSEMIDE 40 MG/4 ML INJ (LASIX) IVP SCH (08:59)
[2021-03-20] MEDS: ENOXAPARIN 60 MG/0.6 ML (LOVENOX) SYR SQ SCH ×2 (08:59→20:26)
[2021-03-20] MEDS: FAMOTIDINE 20MG/2ML IV (PEPCID) IVP SCH (09:00)
[2021-03-20] MEDS: TICAGRELOR 90 MG TABLET (BRILINTA) PO SCH ×2 (09:00→20:27)
[2021-03-20] MEDS: PANTOPRAZOLE 40 MG (PROTONIX) VIAL IV SCH (09:00)
[2021-03-20] MEDS: ASPIRIN 81 MG CHEW (CHILDREN'S ASA) PO SCH (09:00)
[2021-03-20] MEDS: MICONAZOLE 2% POWDER (DESENEX AF) 90 GM TOP SCH ×4 (09:03→20:28)
[2021-03-20] MEDS: LACRI-LUBE OPTHALMIC OINT 3.5 GM TUBE OU PRN (09:04)
[2021-03-20] MEDS ORDERED: VANCOMYCIN 2000 MG/NS 500 ML IVPB IV NR ×2 (10:00)
--- NOTE | 2021-03-20 10:02 | Progress Note - Hospitalist ---
Subjective HPI/CC On Admission Date Seen by Provider: Mar 20, 2021 Time Seen by Provider: 08:00 CC: Respiratory failure HPI: 50 yr old WM with super morbid obesity with past medical history of CAD and congestive heart failure, who presents with worsened hypoxia with periorbital edema consistent with cellulitis. Who presented to the ER by ambulance with lethargy for 9 days was found to be in hypoxic and hypercapnic respiratory failure requiring BiPAP. He failed that it became obtunded and emergently intubated in the ER and central line placed. He had a stent in [address] Funes cardiology consult reports that he is not a cardiac cath candidate because he is too heavy for the table. Vent settings are 500/18/12/70% ABG is 7.40/58/48, adjusting oxygen Vancomycin and Zosyn maintained along with Decadron Very grave prognosis Subjective/Events-last exam Patient sedated on mechanical ventilation appears to be in no acute distress Focused Exam Time of Focused Exam: 21:25 Objective Exam Vital Signs Vital Signs Date Time Temp Pulse Resp B/P (MAP) Pulse Ox O2 Delivery O2 Flow Rate FiO2 03/20/21 09:04 67 149/82 03/20/21 09:00 39.9 91 Mechanical Ventilator 50.00 03/20/21 08:58 55 03/20/21 06:57 18 Capillary Refill : Less Than 3 Seconds General Appearance: Chronically ill, Obese HEENT: Other (Facial swelling and purpura left worse than right no facial induration mild erythema pupils 4 mm and reactive to light.) Respiratory: Other (Anterior chest clear diminished breath sounds in the bases with a few fine rales no wheezing noted sedated not assisting the vent at this time.) Cardiovascular: Regular Rate, Rhythm, No Murmur Extremity: Other (3+ edema involving all extremities) Results/Procedures Lab Laboratory Tests 03/20/21 03:51 Patient resulted labs reviewed. Imaging: Reviewed Imaging Films, Reviewed Imaging Report Assessment/Plan Assessment and Plan Assess & Plan/Chief Complaint (1) Acute on chronic respiratory failure with hypoxia and hypercapnia Status: Acute Assessment & Plan: Ventilator dependent, appreciate [facility] ICU recommendations. Suspect secondary to COVID19 infection with superimposed CHF and pulmonary edema. (2) Facial cellulitis Status: Acute Assessment & Plan: Question of facial cellulitis vs angioedema prior to admi ssion. Completed 5 days of Zosyn, remains on vancomycin. Will resume Zosyn due to growth of aerococcus in blood x 2 and stop vancomycin given negative MRSA swab. 03/19/21- continue zosyn, held lisinopril due to facial swelling/possible angioedema, is on dexamethasone. 03/20/2021: There appears to be less induration and swelling of the face although still significant. With white count elevation persisting above 20,000 as well as fever and the fact that Aeromonas cultures only revealed intermediate se nsitivity to penicillin will be adding vancomycin for which he is fully sensitive. Staff was noted but did not appear to be methicillin-resistant on rapid screen. Prognosis poor. (3) COVID-19 Status: Acute Assessment & Plan: Unknown onset of symptoms. On dexamethasone day 10. (4) Morbid obesity Status: Chronic (5) Primary hypertension Status: Chronic Assessment & Plan: Initially hypotensive, blood pressure trending back up, appreciate Cardiology management. (6) Non-ST elevation myocardial infarction (NSTEMI), initial care episode Status: Acute Assessment & Plan: Elevated troponin on admit, unable to cath due to weight limit of table, on therapeutic enoxaparin x 5 days, changed back to prophylactic dose per Cardiology, started on ticagrelor. (7) Acute HFrEF (heart failure with reduced ejection fraction) Status: Acute Assessment & Plan: Appreciate Cardiology recommendations, receiving IV lasix, echo with somewhat reduced EF but difficult to evaluate well due to body habitus. (8) DVT prophylaxis Status: Acute Assessment & Plan: Enoxaparin (9) Discharge planning issues Status: Acute Assessment & Plan: 03/15- Called Guerda to update on current status and discuss plans, no answer, voicemail not set up. 03/16- Called Guerda (sister) and updated on status, she denied further questions at this time. 03/17- spoke with Guerda around 0830, discussed no significant changes from yesterday, awaiting [facility] ICU physician plan later this morning. 03/18- Called to update at 1438, no answer. 03/19- Spoke to Guerda and updated Critical Care Ventilator Management AARON HIGGINS MD Mar 20, 2021 10:02
--- NOTE | 2021-03-20 10:31 | Tele-ICU Progress Note ---
Subjective Date Seen by a Provider: Mar 20, 2021 Time Seen by a Provider: 09:07 Subjective/Events-last exam This virtual visit was conducted using real time audio/video. Thank you for asking us to see this patient for respiratory insufficiency due to Covid pna. Also NSTEMI, htn. Recent events: Off pressors. temp 40 degrees overnight PE: Morbidly obese. Sedated on vent. VSS. O2 sat 92% on 50/+8. HEENT: No obvious masses, adenopathy or JVD. Chest: clear to auscultation. Diminished. CV: RRR S1 S2 No murmur or added sounds. Abd: Non-tender. Bowel sounds Y. : Unremarkable. Haddad Y. CLIENT INTEGRATION MANAGER/psychiatric: Grossly intact. No obvious focal findings. Extremities: 1+ edema. Capillary refill < 3 seconds. Skin: lip swelling Results: Elevated BUN 27, D-dimer 0.81. B.38/55/65. CXR: clear Available chart/ vitals / labs / images reviewed. Video assessment done using teleICU camera, rest of exam as per RN. A/P: Respiratory insufficiency: Continue present management with vent. Wean FiO2 as juan. Cont alb., precedex, propofol, versed,Dex. Monitor for increasing oxygenation needs. Critical Care: critically ill patient. Cont. Brilinta, ASA,PPI, zully., vanco., zosyn, SSI, coreg, lasix, statin. Discussed with RN Sarahy. Asked RN to reach out to eICU if any questions or concerns later. Time spent with patient/coordination of care with other health professionals (mins): 30. Sepsis Event Evaluation Height, Weight, BMI Height: 6'3.00" Weight: 401lbs. 0.0oz. 181.964580oc; 60.27 BMI Method:Actual Focused Exam Time of Focused Exam: 21:25 Exam Exam Patient acknowledged, consented, and participated in this virtual visit which was conducted using real time audio/video Vital Signs Date Time Temp Pulse Resp B/P (MAP) Pulse Ox O2 Delivery O2 Flow Rate FiO2 03/20/21 10:00 40.0 68 129/78 90 Mechanical Ventilator 50.00 03/20/21 09:04 67 149/82 03/20/21 09:01 67 149/82 03/20/21 09:00 39.9 65 147/90 91 Mechanical Ventilator 50.00 03/20/21 08:59 67 149/82 03/20/21 08:58 55 03/20/21 08:55 91 Mechanical Ventilator 55 03/20/21 08:00 40.0 67 149/82 91 Mechanical Ventilator 50.00 03/20/21 07:56 40.0 03/20/21 07:00 68 03/20/21 07:00 40.0 66 179/106 94 Mechanical Ventilator 50.00 03/20/21 06:57 66 18 94 55 03/20/21 06:13 55 03/20/21 06:00 40.2 67 177/100 93 Mechanical Ventilator 50.00 03/20/21 06:00 68 172/101 03/20/21 05:58 40.2 03/20/21 05:00 40.2 68 161/96 92 Mechanical Ventilator 50.00 03/20/21 04:00 94 Mechanical Ventilator 55 03/20/21 04:00 40.1 68 146/89 92 Mechanical Ventilator 50.00 03/20/21 03:00 40.1 67 30 149/90 92 Mechanical Ventilator 50.00 03/20/21 02:56 68 27 93 55 03/20/21 02:29 40.1 03/20/21 02:23 187/108 03/20/21 02:17 187/108 03/20/21 02:00 40.1 69 28 179/103 93 Mechanical Ventilator 50.00 03/20/21 01:33 55 03/20/21 01:00 70 03/20/21 01:00 40.1 70 28 168/97 92 Mechanical Ventilator 50.00 03/20/21 00:04 67 03/20/21 00:04 67 204/117 03/20/21 00:00 94 Mechanical Ventilator 55 03/20/21 00:00 40.1 67 26 186/106 91 Mechanical Ventilator 50.00 03/19/21 23:00 40.1 67 24 184/109 93 Mechanical Ventilator 50.00 03/19/21 22:27 68 24 93 55 03/19/21 22:27 40.1 03/19/21 22:00 40.0 67 22 160/96 93 Mechanical Ventilator 50.00 03/19/21 21:57 40.0 03/19/21 21:00 55 03/19/21 21:00 39.8 62 19 193/113 95 Mechanical Ventilator 50.00 03/19/21 20:40 63 183/109 03/19/21 20:00 94 Mechanical Ventilator 55 03/19/21 20:00 39.7 62 18 185/112 94 Mechanical Ventilator 50.00 03/19/21 19:00 39.8 68 18 172/106 90 Mechanical Ventilator 50.00 03/19/21 19:00 70 03/19/21 18:37 68 22 90 55 03/19/21 18:00 39.8 64 22 185/110 92 Mechanical Ventilator 50.00 03/19/21 17:33 50 03/19/21 17:00 39.8 68 21 174/113 91 Mechanical Ventilator 50.00 03/19/21 16:07 64 188/117 03/19/21 16:00 95 Mechanical Ventilator 60 03/19/21 16:00 39.8 67 20 188/117 90 Mechanical Ventilator 50.00 03/19/21 15:00 39.7 66 22 186/113 88 Mechanical Ventilator 50.00 03/19/21 14:31 67 22 88 50 03/19/21 14:00 39.6 70 24 171/107 88 Mechanical Ventilator 50.00 03/19/21 13:33 60 03/19/21 13:00 39.6 67 24 158/97 92 Mechanical Ventilator 50.00 03/19/21 12:38 68 03/19/21 12:31 69 151/99 03/19/21 12:00 95 Mechanical Ventilator 60 03/19/21 12:00 39.5 67 22 147/95 92 Mechanical Ventilator 50.00 03/19/21 11:00 39.3 67 22 137/93 91 Mechanical Ventilator 50.00 03/19/21 10:57 64 141/90 03/19/21 10:56 64 141/90 03/19/21 10:48 64 21 93 50 I & O 03/20/21 07:00 Intake Total 1745 ml Output Total 8425 ml Balance -6680 ml Height & Weight Height: 6'3.00" Weight: 401lbs. 0.0oz. 181.669038ol; 60.27 BMI Method:Actual General Appearance: Chronically ill, Obese HEENT: Other (Facial swelling and purpura left worse than right no facial induration mild erythema pupils 4 mm and reactive to light.) Respiratory: Other (Anterior chest clear diminished breath sounds in the bases with a few fine rales no wheezing noted sedated not assisting the vent at this time.) Cardiovascular: Regular Rate, Rhythm, No Murmur Capillary Refill: Less Than 3 Seconds Peripheral Pulses: 2+ Radial Pulses (R), 2+ Radial Pulses (L) Gastrointestinal: normal bowel sounds, non tender, soft, no organomegaly Extremity: Other (3+ edema involving all extremities) Skin: Other (angioedema of lips) Results Lab Laboratory Tests 03/19/21 04:15 03/20/21 03:51 Assessment/Plan Assessment/Plan See free text. Critical Care: Ventilator Management RADHA BRUNSON MD Mar 20, 2021 10:31
[2021-03-20 11:42] VITALS: BP 150/88
[2021-03-20 15:14] VITALS: BP 128/77
[2021-03-20] MEDS: ACETAMINOPHEN 325 MG TABLET PO PRN (15:41)
--- NOTE | 2021-03-20 15:45 | Progress Note - Cardiology ---
Cardiology SOAP Progress Note Subjective: Intubated, on mech vent, unresponsive Objective: I&O/Vital Signs 03/20/21 03/20/21 03/20/21 03/20/21 04:00 04:00 05:00 05:58 Temp 40.1 40.2 40.2 Pulse 68 68 B/P (MAP) 146/89 161/96 Pulse Ox 92 94 92 O2 Delivery Mechanical Ventilator Mechanical Ventilator Mechanical Ventilator O2 Flow Rate 50.00 50.00 FiO2 55 03/20/21 03/20/21 03/20/21 03/20/21 06:00 06:00 06:13 06:57 Temp 40.2 Pulse 68 67 66 Resp 18 B/P (MAP) 172/101 177/100 Pulse Ox 93 94 O2 Delivery Mechanical Ventilator O2 Flow Rate 50.00 FiO2 55 55 03/20/21 03/20/21 03/20/21 03/20/21 07:00 07:00 07:56 08:00 Temp 40.0 40.0 40.0 Pulse 66 68 67 B/P (MAP) 179/106 149/82 Pulse Ox 94 91 O2 Delivery Mechanical Ventilator Mechanical Ventilator O2 Flow Rate 50.00 50.00 03/20/21 03/20/21 03/20/21 03/20/21 08:55 08:58 08:59 09:00 Temp 39.9 Pulse 67 65 B/P (MAP) 149/82 147/90 Pulse Ox 91 91 O2 Delivery Mechanical Ventilator Mechanical Ventilator O2 Flow Rate 50.00 FiO2 55 55 03/20/21 03/20/21 03/20/21 03/20/21 09:01 09:04 10:00 10:43 Temp 40.0 Pulse 67 67 68 68 Resp 18 B/P (MAP) 149/82 149/82 129/78 129/78 Pulse Ox 90 O2 Delivery Mechanical Ventilator O2 Flow Rate 50.00 03/20/21 03/20/21 03/20/21 03/20/21 11:00 11:42 12:00 12:00 Temp 40.1 40.1 Pulse 69 70 70 Resp 20 B/P (MAP) 144/85 160/89 Pulse Ox 89 89 90 O2 Delivery Mechanical Ventilator Mechanical Ventilator O2 Flow Rate 50.00 50.00 FiO2 55 03/20/21 03/20/21 03/20/21 03/20/21 12:15 12:15 12:52 13:00 Temp 40.0 Pulse 71 71 B/P (MAP) 154/89 Pulse Ox 91 90 O2 Delivery Mechanical Ventilator Mechanical Ventilator O2 Flow Rate 50.00 FiO2 55 55 03/20/21 03/20/21 03/20/21 03/20/21 13:46 14:00 15:00 15:14 Temp 40.2 40.3 Pulse 71 73 75 75 Resp 30 29 25 B/P (MAP) 154/89 115/67 128/77 Pulse Ox 90 93 94 O2 Delivery Mechanical Ventilator Mechanical Ventilator O2 Flow Rate 50.00 50.00 FiO2 55 03/20/21 00:00 Intake Total 855 ml Output Total 6000 ml Balance -5145 ml Weight (Pounds): 401 Weight (Ounces): 0.0 Weight (Calculated Kilograms): 181.545243 Results/Procedures: Labs Laboratory Tests 03/19/21 17:07: Glucometer 151H 03/20/21 00:12: Glucometer 142H 03/20/21 03:51: White Blood Count 12.0H, Red Blood Count 5.42, Hemoglobin 16.3, Hematocrit 53, Mean Corpuscular Volume 97, Mean Corpuscular Hemoglobin 30, Mean Corpuscular Hemoglobin Concent 31L, Red Cell Distribution Width 13.2, Platelet Count 252, Mean Platelet Volume 10.5, Immature Granulocyte % (Auto) 1, Neutrophils (%) (Auto) 60, Lymphocytes (%) (Auto) 24, Monocytes (%) (Auto) 15H, Eosinophils (%) (Auto) 0, Basophils (%) (Auto) 0, Neutrophils # (Auto) 7.2, Lymphocytes # (Auto) 2.9, Monocytes # (Auto) 1.8H, Eosinophils # (Auto) 0.1, Basophils # (Auto) 0.1, Immature Granulocyte # (Auto) 0.1, D-Dimer 0.81H, Sodium Level 145, Potassium Level 3.8, Chloride Level 107, Carbon Dioxide Level 26, Anion Gap 12, Blood Urea Nitrogen 27H, Creatinine 0.82, Estimat Glomerular Filtration Rate 108, BUN/Creatinine Ratio 33, Glucose Level 145H, Calcium Level 8.6, Corrected Calcium 9.2, Phosphorus Level 2.7, Magnesium Level 2.2, Total Bilirubin 0.6, Aspartate Amino Transf (AST/SGOT) 44H, Alanine Aminotransferase (ALT/SGPT) 69H, Alkaline Phosphatase 63, Total Protein 7.0, Albumin 3.2, Triglycerides Level 241H 03/20/21 03:55: Blood Gas Puncture Site RIGHT RADIAL, Blood Gas Patient Temperature 40.1, Arterial Blood pH 7.38, Arterial Blood Partial Pressure CO2 55H, Arterial Blood Partial Pressure O2 65L, Arterial Blood HCO3 31H, Arterial Blood Total CO2 31.9H , Arterial Blood Oxygen Saturation 87L, Arterial Blood Base Excess 6.2H, Ignacio Test YES-POS, Blood Gas Ventilator Setting YES, Blood Gas Inspired Oxygen 50% Microbiology 03/10/21 Gram Stain - Final, Complete 03/10/21 Sputum Culture - Final, Complete Usual upper respiratory erick Staphylococcus aureus 03/09/21 Blood Culture - Final, Complete Aerococcus Viridans 03/09/21 Urine Culture - Final, Complete NO GROWTH Laboratory Tests 03/19/21 04:15 03/20/21 03:51 A/P: Assessment: COVID-19 and [id number] resp failure - managed by the Hospitalist service Ac NSTEMI - his weight is above the limit of our cardiac catheterization table. Continue medical management. We have restarted ticagrelor that he was supposed to be taking at home and also added low-dose aspirin. We also have him on low-dose carvedilol and intensive dose statin medication. His clinical course will likely be complicated due to the superimposed Covid infection and his morbid obesity. Cardiomyopathy - His echocardiogram from this admission showed possible mild left ventricular systolic dysfunction but was a very technically difficult study. He is on carvedilol. YUDI inhibitor was discontinued due to swelling of his lips with possible concern for angioedema. For this reason, he is not a good candidate for ARB. HFrEF - continue furosemide and monitor labs Hypertension, controlled - continue current regimen Morbid obesity Plan: * I reviewed his records and vs and labs. To reduce COVID-19 exposure, I did not examine the patient * Continue current regimen * Monitor labs ANDRE RUBIO MD [facility] Mar 20, 2021 15:45
[2021-03-20] MEDS: VANCOMYCIN 1250 MG/NS 250 ML IVPB IV SCH ×2 (17:31)
[2021-03-20 18:08] VITALS: BP 136/72
[2021-03-20] MEDS: ROSUVASTATIN 20 MG (CRESTOR) TABLET PO SCH (20:27)
[2021-03-20 22:14] VITALS: BP 167/86
[2021-03-21] MEDS: inSUlin ASPART (NovoLOG) 1 UNIT/0.01 ML (CHARGE PER UNIT) SC SCH ×4 (00:03→17:58)
[2021-03-21] MEDS: NOREPINEPHRINE 8 MG/250 ML 250 ML IV SCH ×4 (02:32→20:37)
[2021-03-21] MEDS: VANCOMYCIN 1250 MG/NS 250 ML IVPB IV SCH ×6 (02:32→18:28)
[2021-03-21 02:54] VITALS: BP 150/88
[2021-03-21] MEDS: RT-ALBUTEROL HFA 8.5 GM INHALER IH SCH ×6 (02:54→21:45)
[2021-03-21] MEDS: VASOPRESSIN INJECTION 20 UNIT in NS (IVPB) 100 ML IV SCH ×2 (03:22→16:35)
[2021-03-21] MEDS: DexMEDEtomidine 250 ML DRIP 250 ML IV SCH ×5 (04:35→18:29)
[2021-03-21] MEDS: PROPOFOL DRIP (ICU) 100 ML IV SCH ×5 (04:36→18:28)
[2021-03-21 04:42] LABS: BASOPHILS # (AUTO) 0.1 10^3/uL (0.0-0.1); BASOPHILS % (AUTO) 1 % (0-10); EOSINOPHILS % (AUTO) 0 % (0-10); HEMATOCRIT 51 % (40-54); HEMOGLOBIN 15.4 g/dL (13.3-17.7); LYMPHOCYTES # (AUTO) 3.1 10^3/uL (1.0-4.0); LYMPHOCYTES % (AUTO) 22 % (12-44); MEAN CORPUSCULAR HEMOGLOBIN 30 pg (25-34); MEAN CORPUSCULAR HGB CONC 30 g/dL (32-36); MEAN CORPUSCULAR VOLUME 98 fL (80-99); MEAN PLATELET VOLUME 10.6 fL (9.0-12.2); MONOCYTES # (AUTO) 2.1 10^3/uL (0.0-1.0); MONOCYTES % (AUTO) 15 % (0-12); NEUTROPHILS # (AUTO) 8.6 10^3/uL (1.8-7.8); NEUTROPHILS % (AUTO) 61 % (42-75); PLATELET COUNT 229 10^3/uL (130-400); WHITE BLOOD COUNT 14.1 10^3/uL (4.3-11.0)
[2021-03-21 05:01] LABS: POTASSIUM 3.9 MMOL/L (3.6-5.0)
[2021-03-21 05:03] LABS: CALCIUM 8.4 MG/DL (8.5-10.1)
[2021-03-21 05:04] LABS: TOTAL PROTEIN 6.5 GM/DL (6.4-8.2)
[2021-03-21 05:05] LABS: BILIRUBIN,TOTAL 0.5 MG/DL (0.1-1.0)
[2021-03-21 05:07] LABS: PHOSPHORUS 3.5 MG/DL (2.3-4.7)
[2021-03-21 05:08] LABS: CREATININE SERUM 0.73 MG/DL (0.60-1.30)
[2021-03-21 05:10] LABS: MAGNESIUM 2.1 MG/DL (1.6-2.4)
[2021-03-21] MEDS: hydrALAZINE (APRESOLINE) 25 MG TAB PO SCH ×3 (05:34→21:17)
[2021-03-21] MEDS: CATHETER FLUSH 10 ML SYR IV SCH ×3 (06:58→22:56)
[2021-03-21] MEDS: POTASSIUM CL 10MEQ/50ML IVPB 50 ML IV SCH (06:59)
[2021-03-21] MEDS: MAGNESIUM 1 GM/100 ML IVPB 100 ML IV SCH (07:00)
[2021-03-21] MEDS: KCL 20 MEQ TAB (K-DUR) PO SCH (07:00)
[2021-03-21 07:13] VITALS: BP 146/80
[2021-03-21] MEDS: FUROSEMIDE 40 MG/4 ML INJ (LASIX) IVP SCH (08:59)
[2021-03-21] MEDS: ENOXAPARIN 60 MG/0.6 ML (LOVENOX) SYR SQ SCH ×2 (08:59→21:17)
[2021-03-21] MEDS: PANTOPRAZOLE 40 MG (PROTONIX) VIAL IV SCH (08:59)
[2021-03-21] MEDS: FAMOTIDINE 20MG/2ML IV (PEPCID) IVP SCH (08:59)
[2021-03-21] MEDS ORDERED: TROUGH ORDER-PHARMACY XX NR (09:00)
[2021-03-21] MEDS: TICAGRELOR 90 MG TABLET (BRILINTA) PO SCH ×2 (09:00→21:17)
[2021-03-21] MEDS: ASPIRIN 81 MG CHEW (CHILDREN'S ASA) PO SCH (09:00)
[2021-03-21 09:13] LABS: ABG BASE EXCESS 4.7 MMOL/L (-2.5-2.5); ABG OXYGEN SATURATION 86 % (94-100); ABG PCO2 56 MMHG (35-45); ABG PH 7.35 (7.37-7.43); ABG PO2 66 MMHG (79-93)
--- NOTE | 2021-03-21 09:17 | Progress Note - Hospitalist ---
Subjective HPI/CC On Admission Date Seen by Provider: Mar 21, 2021 Time Seen by Provider: 07:45 CC: Respiratory failure HPI: 50 yr old WM with super morbid obesity with past medical history of CAD and congestive heart failure, who presents with worsened hypoxia with periorbital edema consistent with cellulitis. Who presented to the ER by ambulance with lethargy for 9 days was found to be in hypoxic and hypercapnic respiratory failure requiring BiPAP. He failed that it became obtunded and emergently intubated in the ER and central line placed. He had a stent in [address] Funes cardiology consult reports that he is not a cardiac cath candidate because he is too heavy for the table. Vent settings are 500/18/12/70% ABG is 7.40/58/48, adjusting oxygen Vancomycin and Zosyn maintained along with Decadron Very grave prognosis Subjective/Events-last exam Patient sedated on vent appears to be in no acute distress Focused Exam Time of Focused Exam: 21:25 Objective Exam Vital Signs Vital Signs Date Time Temp Pulse Resp B/P (MAP) Pulse Ox O2 Delivery O2 Flow Rate FiO2 03/21/21 08:48 55 03/21/21 08:45 95 Mechanical Ventilator 03/21/21 08:00 39.4 64 21 129/70 50.00 Capillary Refill : Less Than 3 Seconds General Appearance: No Apparent Distress, Chronically ill HEENT: Other (Facial edema unchanged there is less erythema no induration edema is most prevalent on the lips but not tense) Respiratory: Other (Chest clear anteriorly) Cardiovascular: Regular Rate, Rhythm, No Gallop, No Murmur Gastrointestinal: Other (Bowel sounds present but hypoactive abdomen soft no mass no reaction to palpation.) Extremity: Other (3+ symmetrical forced extremity edema extremities are warm no ulceration. No erythema) Results/Procedures Lab Laboratory Tests 03/21/21 04:30 Patient resulted labs reviewed. Imaging: Reviewed Imaging Films, Reviewed Imaging Report Assessment/Plan Assessment and Plan Assess & Plan/Chief Complaint (1) Acute on chronic respiratory failure with hypoxia and hypercapnia Status: Acute Assessment & Plan: Ventilator dependent, appreciate [facility] ICU recommendations. Suspect secondary to COVID19 infection with superimposed CHF and pulmonary edema. (2) Facial cellulitis Status: Acute Assessment & Plan: Question of facial cellulitis vs angioedema prior to admission. Completed 5 days of Zosyn, remains on vancomycin. Will resume Zosyn due to growth of aerococcus in blood x 2 and stop vancomycin given negative MRSA swab. 03/19/21- continue zosyn, held lisinopril due to facial swelling/possible angioedema, is on dexamethasone. 03/20/2021: There appears to be less induration and swelling of the face although still significant. With white count elevation persisting above 20,000 as well as fever and the fact that Aeromonas cultures only revealed intermediate sensitivity to penicillin will be adding vancomycin for which he is fully sensitive. Staff was noted but did not appear to be methicillin-resistant on rapid screen. Prognosis poor. 03/21/2021: Facial examination exam slightly improved from yesterday patient still febrile now on vancomycin. Zosyn had finished a 5-day course yesterday afternoon we will continue for another 5 days we will repeat blood cultures. While white count is elevated there is not a left shift suggesting that this is likely steroid related continue for now and will repeat chest x-ray. (3) COVID-19 Status: Acute Assessment & Plan: Unknown onset of symptoms. On dexamethasone day 10. (4) Morbid obesity Status: Chronic (5) Primary hypertension Status: Chronic Assessment & Plan: Initially hypotensive, blood pressure trending back up, appreciate Cardiology management. (6) Non-ST elevation myocardial infarction (NSTEMI), initial care episode Status: Acute Assessment & Plan: Elevated troponin on admit, unable to cath due to weight limit of table, on therapeutic enoxaparin x 5 days, changed back to prophylactic dose per Cardiology, started on ticagrelor. (7) Acute HFrEF (heart failure with reduced ejection fraction) Status: Acute Assessment & Plan: Appreciate Cardiology recommendations, receiving IV lasix, echo with somewhat reduced EF but difficult to evaluate well due to body habitus. (8) DVT prophylaxis Status: Acute Assessment & Plan: Enoxaparin (9) Discharge planning issues Status: Acute Assessment & Plan: 03/15- Called Guerda to update on current status and discuss plans, no answer, voicemail not set up. 03/16- Called Guerda (sister) and updated on status, she denied further questions at this time. 03/17- spoke with Guerda around 0830, discussed no significant changes from yesterday, awaiting [facility] ICU physician plan later this morning. 03/18- Called to update at 1438, no answer. 03/19- Spoke to Guerda and updated Critical Care Critically Ill Patient AARON HIGGINS MD Mar 21, 2021 09:17
[2021-03-21 09:18] LABS: ALLENS TEST YES-POS; PATIENT TEMP 39.4; VENTILATOR YES
--- NOTE | 2021-03-21 09:44 | Diagnostic Imaging Report ---
CHEST 1 VIEW, AP/PA ONLY Indication: Pneumonia Comparison: 03/18/2021 Findings: Evaluation is suboptimal by portable technique and large patient body habitus. This results in suboptimal visualization of the tip of the ET tube which can only be seen with certainty at the level of the clavicular heads. An enteric tube cannot be visualized on this examination. Right IJ central venous catheter is in similar position. Very low lung volumes. Stable enlargement of the cardiac silhouette. Visualized portions of the lungs are clear. A large portion of the lung bases are not able to be seen on this examination. No pneumothorax. Impression: 1. Very limited examination due to portable technique and patient's large body habitus. 2. The tip of the ET tube cannot be readily identified and therefore position cannot be ascertained. Dictated by: Dictated on workstation # [id number]
[2021-03-21] MEDS: PIPERACILLIN SODIUM/TAZOBACTAM 4.5 GM in NS (IVPB) 100 ML IV SCH ×2 (10:26→16:35)
[2021-03-21] MEDS: MICONAZOLE 2% POWDER (DESENEX AF) 90 GM TOP SCH ×4 (10:27→21:17)
--- NOTE | 2021-03-21 10:39 | Tele-ICU Progress Note ---
Subjective Date Seen by a Provider: Mar 21, 2021 Time Seen by a Provider: 08:55 Subjective/Events-last exam This virtual visit was conducted using real time audio/video. Thank you for asking us to see this patient for respiratory insufficiency due to Covid pna. Also NSTEMI, htn. Recent events: Off pressors. temp 39.4 degrees overnight PE: Morbidly obese. Sedated on vent. VSS. O2 sat 92% on 55/+8. HEENT: No obvious masses, adenopathy or JVD. Chest: clear to auscultation. Diminished. CV: RRR S1 S2 No murmur or added sounds. Abd: Non-tender. Bowel sounds Y. : Unremarkable. 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 No obvious focal findings. Extremities: 2+ edema. Capillary refill < 3 seconds. Skin: lip swelling Results: Elevated WCC 14.1BUN 27, D-dimer 0.81. B.38/55/65. CXR: clear Available chart/ vitals / labs / images reviewed. Video assessment done using teleICU camera, rest of exam as per RN. A/P: Respiratory insufficiency: Continue present management with vent. Wean FiO2 as juan. Cont alb., precedex, propofol, versed,Dex. Monitor for increasing oxygenation needs. No SBT yet due to fever, high FiO2. Critical Care: critically ill patient. Cont. Brilinta, ASA, Pepcid, zully., vanco., zosyn, SSI, coreg, lasix, statin. Discussed with ANNALISE Weathers. Asked RN to reach out to eICU if any questions or concerns later. Time spent with patient/coordination of care with other health professionals (mins): 25. Sepsis Event Evaluation Height, Weight, BMI Height: 6'3.00" Weight: 401lbs. 0.0oz. 181.173904pe; 60.27 BMI Method:Actual Focused Exam Time of Focused Exam: 21:25 Exam Exam Patient acknowledged, consented, and participated in this virtual visit which was conducted using real time audio/video Vital Signs Date Time Temp Pulse Resp B/P (MAP) Pulse Ox O2 Delivery O2 Flow Rate FiO2 03/21/21 10:00 39.4 64 10 143/100 93 Mechanical Ventilator 50.00 03/21/21 09:00 39.4 63 24 131/73 95 Mechanical Ventilator 50.00 03/21/21 08:48 55 03/21/21 08:45 95 Mechanical Ventilator 55 03/21/21 08:00 39.4 64 21 129/70 92 Mechanical Ventilator 50.00 03/21/21 07:59 39.4 03/21/21 07:13 64 24 94 55 03/21/21 07:00 39.3 62 21 147/82 95 Mechanical Ventilator 50.00 03/21/21 07:00 62 03/21/21 06:00 39.3 62 28 142/83 95 Mechanical Ventilator 50.00 03/21/21 05:00 39.3 62 31 145/84 96 Mechanical Ventilator 50.00 03/21/21 04:37 64 145/85 03/21/21 04:36 64 145/85 03/21/21 04:36 64 145/85 03/21/21 04:35 64 145/85 03/21/21 04:00 91 Mechanical Ventilator 55 03/21/21 04:00 39.4 64 23 145/85 95 Mechanical Ventilator 50.00 03/21/21 04:00 55 03/21/21 03:00 39.5 65 27 143/85 93 Mechanical Ventilator 50.00 03/21/21 02:54 64 18 93 55 03/21/21 02:00 39.6 67 142/83 92 Mechanical Ventilator 50.00 03/21/21 01:00 63 03/21/21 01:00 39.6 66 22 137/77 93 Mechanical Ventilator 50.00 03/21/21 00:00 55 03/21/21 00:00 39.6 62 33 151/80 92 Mechanical Ventilator 50.00 03/20/21 23:59 91 Mechanical Ventilator 55 03/20/21 23:00 39.7 64 26 145/78 92 Mechanical Ventilator 50.00 03/20/21 22:48 62 167/86 03/20/21 22:14 62 22 93 55 03/20/21 22:00 39.7 63 18 166/91 94 Mechanical Ventilator 50.00 03/20/21 21:41 68 136/72 03/20/21 21:40 68 22 136/72 03/20/21 21:40 68 136/72 03/20/21 21:00 39.7 61 23 156/80 94 Mechanical Ventilator 50.00 03/20/21 20:26 68 136/72 03/20/21 20:00 39.8 62 26 158/86 93 Mechanical Ventilator 50.00 03/20/21 20:00 91 Mechanical Ventilator 55 03/20/21 20:00 55 03/20/21 19:00 66 03/20/21 19:00 40.0 65 37 151/84 91 Mechanical Ventilator 50.00 03/20/21 18:08 68 22 94 55 03/20/21 18:00 40.3 69 33 136/72 94 Mechanical Ventilator 50.00 03/20/21 17:31 73 126/78 03/20/21 17:00 40.6 73 26 126/78 96 Mechanical Ventilator 50.00 03/20/21 16:18 40.5 03/20/21 16:08 91 Mechanical Ventilator 55 03/20/21 16:08 55 03/20/21 16:00 40.5 75 23 116/76 92 Mechanical Ventilator 50.00 03/20/21 15:43 75 128/77 03/20/21 15:43 75 128/77 03/20/21 15:41 40.5 03/20/21 15:14 75 25 94 55 03/20/21 15:00 40.3 75 29 128/77 93 Mechanical Ventilator 50.00 03/20/21 14:00 40.2 73 30 115/67 90 Mechanical Ventilator 50.00 03/20/21 13:46 71 154/89 03/20/21 13:00 40.0 71 154/89 90 Mechanical Ventilator 50.00 03/20/21 12:52 71 03/20/21 12:15 55 03/20/21 12:15 91 Mechanical Ventilator 55 03/20/21 12:00 40.1 03/20/21 12:00 70 160/89 90 Mechanical Ventilator 50.00 03/20/21 11:42 70 20 89 55 03/20/21 11:00 40.1 69 144/85 89 Mechanical Ventilator 50.00 03/20/21 10:43 68 18 129/78 I & O 03/21/21 07:00 Intake Total 3405 ml Output Total 3850 ml Balance -445 ml Height & Weight Height: 6'3.00" Weight: 401lbs. 0.0oz. 181.296828eh; 60.27 BMI Method:Actual General Appearance: No Apparent Distress, Chronically ill HEENT: Other (Facial edema unchanged there is less erythema no induration edema is most prevalent on the lips but not tense) Respiratory: Other (Chest clear anteriorly) Cardiovascular: Regular Rate, Rhythm, No Gallop, No Murmur Capillary Refill: Less Than 3 Seconds Peripheral Pulses: 2+ Radial Pulses (R), 2+ Radial Pulses (L) Gastrointestinal: normal bowel sounds, non tender, soft, no organomegaly Extremity: Other (3+ symmetrical forced extremity edema extremities are warm no ulceration. No erythema) Skin: Other (angioedema of lips) Results Lab Laboratory Tests 03/20/21 03:51 03/21/21 04:30 Assessment/Plan Assessment/Plan Aee free text. Critical Care: Ventilator Management RADHA BRUNSON MD Mar 21, 2021 10:38
[2021-03-21 10:53] VITALS: BP 143/80
[2021-03-21 14:56] VITALS: BP 154/85
--- NOTE | 2021-03-21 16:17 | Progress Note - Cardiology ---
Cardiology SOAP Progress Note Subjective: Intubated and on mech vent Objective: I&O/Vital Signs 03/21/21 03/21/21 03/21/21 03/21/21 04:35 04:36 04:36 04:37 Pulse 64 64 64 64 B/P (MAP) 145/85 145/85 145/85 145/85 03/21/21 03/21/21 03/21/21 03/21/21 05:00 06:00 07:00 07:00 Temp 39.3 39.3 39.3 Pulse 62 62 62 62 Resp 31 28 21 B/P (MAP) 145/84 142/83 147/82 Pulse Ox 96 95 95 O2 Delivery Mechanical Ventilator Mechanical Ventilator Mechanical Ventilator O2 Flow Rate 50.00 50.00 50.00 03/21/21 03/21/21 03/21/21 03/21/21 07:13 07:59 08:00 08:45 Temp 39.4 39.4 Pulse 64 64 Resp 24 21 B/P (MAP) 129/70 Pulse Ox 94 92 95 O2 Delivery Mechanical Ventilator Mechanical Ventilator O2 Flow Rate 50.00 FiO2 55 55 03/21/21 03/21/21 03/21/21 03/21/21 08:48 09:00 10:00 10:53 Temp 39.4 39.4 Pulse 63 64 66 Resp 24 10 20 B/P (MAP) 131/73 143/100 Pulse Ox 95 93 91 O2 Delivery Mechanical Ventilator Mechanical Ventilator O2 Flow Rate 50.00 50.00 FiO2 55 55 03/21/21 03/21/21 03/21/21 03/21/21 11:00 11:39 11:39 11:39 Temp 39.4 Pulse 65 65 65 65 Resp 20 B/P (MAP) 141/76 141/76 141/76 141/76 Pulse Ox 91 O2 Delivery Mechanical Ventilator O2 Flow Rate 50.00 03/21/21 03/21/21 03/21/21 03/21/21 11:40 12:00 12:10 13:00 Temp 39.4 39.4 Pulse 65 67 69 Resp 19 B/P (MAP) 141/76 133/71 Pulse Ox 91 O2 Delivery Mechanical Ventilator O2 Flow Rate 50.00 03/21/21 03/21/21 03/21/21 03/21/21 13:00 14:00 14:56 15:00 Temp 39.6 39.8 40.1 Pulse 68 70 70 70 Resp 18 25 21 20 B/P (MAP) 131/78 154/87 159/89 Pulse Ox 92 92 93 93 O2 Delivery Mechanical Ventilator Mechanical Ventilator Mechanical Ventilator O2 Flow Rate 50.00 50.00 50.00 FiO2 55 03/21/21 16:00 Temp 40.1 Pulse 71 Resp 18 B/P (MAP) 166/94 Pulse Ox 93 O2 Delivery Mechanical Ventilator O2 Flow Rate 50.00 03/21/21 00:00 Intake Total 1745 ml Output Total 2300 ml Balance -555 ml Weight (Pounds): 401 Weight (Ounces): 0.0 Weight (Calculated Kilograms): 181.627445 Results/Procedures: Labs Laboratory Tests 03/20/21 17:17: Glucometer 156H 03/21/21 04:30: White Blood Count 14.1H, Red Blood Count 5.17, Hemoglobin 15.4, Hematocrit 51, Mean Corpuscular Volume 98, Mean Corpuscular Hemoglobin 30, Mean Corpuscular Hemoglobin Concent 30L, Red Cell Distribution Width 13.3, Platelet Count 229, Mean Platelet Volume 10.6, Immature Granulocyte % (Auto) 1, Neutrophils (%) (Auto) 61, Lymphocytes (%) (Auto) 22, Monocytes (%) (Auto) 15H, Eosinophils (%) (Auto) 0, Basophils (%) (Auto) 1, Neutrophils # (Auto) 8.6H, Lymphocytes # (Auto) 3.1, Monocytes # (Auto) 2.1H, Eosinophils # (Auto) 0.0, Basophils # (Auto) 0.1, Immature Granulocyte # (Auto) 0.1, Sodium Level 144, Potassium Level 3.9, Chloride Level 108H, Carbon Dioxide Level 25, Anion Gap 11, Blood Urea Nit rogen 27H, Creatinine 0.73, Estimat Glomerular Filtration Rate 112, BUN/Creatinine Ratio 37, Glucose Level 141H, Calcium Level 8.4L, Corrected Calci um 9.2, Phosphorus Level 3.5, Magnesium Level 2.1, Total Bilirubin 0.5, Aspartate Amino Transf (AST/SGOT) 77H, Alanine Aminotransferase (ALT/SGPT) 148H, Alkaline Phosphatase 55, Total Protein 6.5, Albumin 3.0L 03/21/21 08:50: Blood Gas Puncture Site L RAD, Blood Gas Patient Temperature 39.4, Arterial Blood pH 7.35L, Arterial Blood Partial Pressure CO2 56H, Arterial Blood Partial Pressure O2 66L, Arterial Blood HCO3 29H, Arterial Blood Total CO2 31.0, Arterial Blood Oxygen Saturation 86L, Arterial Blood Base Excess 4.7H, Ignacio Test YES-POS, Blood Gas Ventilator Setting YES, Blood Gas Inspired Oxygen 55% 03/21/21 09:00: Vancomycin Level Trough 15.3 03/21/21 11:36: Glucometer 143H Microbiology 03/19/21 Blood Culture - Preliminary, Resulted No growth 03/10/21 Gram Stain - Final, Complete 03/10/21 Sputum Culture - Final, Complete Usual upper respiratory erick Staphylococcus aureus 03/09/21 Urine Culture - Final, Complete NO GROWTH Laboratory Tests 03/20/21 03:51 03/21/21 04:30 A/P: Assessment: COVID-19 and [id number] resp failure - managed by the Hospitalist service Ac NSTEMI - his weight is above the limit of our cardiac catheterization table. Continue medical management. We have restarted ticagrelor that he was supposed to be taking at home and also added low-dose aspirin. We also have him on low-dose carvedilol and intensive dose statin medication. His clinical course will likely be complicated due to the superimposed Covid infection and his morbid obesity. Cardiomyopathy - His echocardiogram from this admission showed possible mild left ventricular systolic dysfunction but was a very technically difficult study. He is on carvedilol. YUDI inhibitor was discontinued due to swelling of his lips with possible concern for angioedema. For this reason, he is not a good candidate for ARB. HFrEF - continue furosemide and monitor labs Hypertension, controlled - continue current regimen Morbid obesity Plan: * I reviewed his records and vs and labs. To reduce COVID-19 exposure, I did not examine the patient * Continue current regimen * Monitor labs ANDRE RUBIO MD FACP [facility] Mar 21, 2021 16:17
[2021-03-21 18:59] VITALS: BP 138/83
[2021-03-21] MEDS: MIDAZOLAM DRIP PRE-MIX 100 ML IV SCH (19:53)
[2021-03-21] MEDS: ROSUVASTATIN 20 MG (CRESTOR) TABLET PO SCH (21:17)
[2021-03-21 21:45] VITALS: BP 160/96
[2021-03-22] MEDS: VANCOMYCIN 1250 MG/NS 250 ML IVPB IV SCH ×6 (00:20→17:51)
[2021-03-22] MEDS: PIPERACILLIN SODIUM/TAZOBACTAM 4.5 GM in NS (IVPB) 100 ML IV SCH ×3 (00:20→17:50)
[2021-03-22] MEDS: PROPOFOL DRIP (ICU) 100 ML IV SCH ×6 (00:21→15:26)
[2021-03-22] MEDS: DexMEDEtomidine 250 ML DRIP 250 ML IV SCH ×6 (00:21→22:53)
[2021-03-22] MEDS: inSUlin ASPART (NovoLOG) 1 UNIT/0.01 ML (CHARGE PER UNIT) SC SCH ×4 (00:22→17:42)
[2021-03-22 02:41] VITALS: BP 174/103
[2021-03-22] MEDS: RT-ALBUTEROL HFA 8.5 GM INHALER IH SCH ×6 (02:41→22:25)
[2021-03-22] MEDS: NOREPINEPHRINE 8 MG/250 ML 250 ML IV SCH ×4 (02:43→22:50)
[2021-03-22] MEDS: VASOPRESSIN INJECTION 20 UNIT in NS (IVPB) 100 ML IV SCH ×3 (02:43→23:24)
[2021-03-22 03:53] LABS: BASOPHILS # (AUTO) 0.1 10^3/uL (0.0-0.1); BASOPHILS % (AUTO) 1 % (0-10); EOSINOPHILS % (AUTO) 0 % (0-10); HEMATOCRIT 50 % (40-54); HEMOGLOBIN 15.3 g/dL (13.3-17.7); LYMPHOCYTES # (AUTO) 2.5 10^3/uL (1.0-4.0); LYMPHOCYTES % (AUTO) 19 % (12-44); MEAN CORPUSCULAR HEMOGLOBIN 30 pg (25-34); MEAN CORPUSCULAR HGB CONC 31 g/dL (32-36); MEAN CORPUSCULAR VOLUME 99 fL (80-99); MEAN PLATELET VOLUME 10.7 fL (9.0-12.2); MONOCYTES # (AUTO) 1.6 10^3/uL (0.0-1.0); MONOCYTES % (AUTO) 12 % (0-12); NEUTROPHILS # (AUTO) 8.8 10^3/uL (1.8-7.8); NEUTROPHILS % (AUTO) 68 % (42-75); PLATELET COUNT 211 10^3/uL (130-400); WHITE BLOOD COUNT 13.1 10^3/uL (4.3-11.0)
[2021-03-22] MEDS: hydrALAZINE (APESOLINE) 20 MG/ML VIAL IV PRN ×2 (03:55→17:50)
[2021-03-22 03:57] LABS: ABG BASE EXCESS 3.9 MMOL/L (-2.5-2.5); ABG OXYGEN SATURATION 89 % (94-100); ABG PCO2 54 MMHG (35-45); ABG PH 7.35 (7.37-7.43); ABG PO2 70 MMHG (79-93); ABG TCO2 30.1 MMOL/L (21.0-31.0)
[2021-03-22 04:03] LABS: ALLENS TEST YES-POS; INSPIRED O2 45%; PATIENT TEMP 39.5; VENTILATOR YES
[2021-03-22 04:10] LABS: ALBUMIN 3.1 GM/DL (3.2-4.5); POTASSIUM 4.2 MMOL/L (3.6-5.0)
[2021-03-22 04:11] LABS: CALCIUM 8.4 MG/DL (8.5-10.1)
[2021-03-22 04:12] LABS: TOTAL PROTEIN 6.6 GM/DL (6.4-8.2)
[2021-03-22 04:14] LABS: BILIRUBIN,TOTAL 0.6 MG/DL (0.1-1.0)
[2021-03-22 04:15] LABS: PHOSPHORUS 3.5 MG/DL (2.3-4.7)
[2021-03-22 04:16] LABS: CREATININE SERUM 0.8 MG/DL (0.60-1.30)
[2021-03-22] MEDS: MIDAZOLAM DRIP PRE-MIX 100 ML IV SCH ×2 (05:46→16:36)
[2021-03-22] MEDS: hydrALAZINE (APRESOLINE) 25 MG TAB PO SCH ×3 (05:46→22:52)
[2021-03-22] MEDS: POTASSIUM CL 10MEQ/50ML IVPB 50 ML IV SCH (06:18)
[2021-03-22] MEDS: CATHETER FLUSH 10 ML SYR IV SCH ×3 (06:18→22:52)
[2021-03-22] MEDS: KCL 20 MEQ TAB (K-DUR) PO SCH (06:19)
[2021-03-22] MEDS: MAGNESIUM 1 GM/100 ML IVPB 100 ML IV SCH (06:19)
[2021-03-22 06:21] VITALS: BP 155/83
[2021-03-22] MEDS: FUROSEMIDE 40 MG/4 ML INJ (LASIX) IVP SCH (08:07)
[2021-03-22] MEDS: MICONAZOLE 2% POWDER (DESENEX AF) 90 GM TOP SCH ×4 (08:08→20:06)
[2021-03-22] MEDS: TICAGRELOR 90 MG TABLET (BRILINTA) PO SCH ×2 (08:08→20:06)
[2021-03-22] MEDS: ENOXAPARIN 60 MG/0.6 ML (LOVENOX) SYR SQ SCH ×2 (08:08→20:06)
[2021-03-22] MEDS: PANTOPRAZOLE 40 MG (PROTONIX) VIAL IV SCH (08:08)
[2021-03-22] MEDS: ASPIRIN 81 MG CHEW (CHILDREN'S ASA) PO SCH (08:08)
[2021-03-22] MEDS: FAMOTIDINE 20MG/2ML IV (PEPCID) IVP SCH (08:08)
[2021-03-22] MEDS: LACRI-LUBE OPTHALMIC OINT 3.5 GM TUBE OU PRN (08:09)
[2021-03-22] MEDS ORDERED: KETOROLAC 15 MG/ML VIAL IVP ONE (09:15)
[2021-03-22] MEDS ORDERED: KETOROLAC 15 MG/ML VIAL ONE (09:15)
--- NOTE | 2021-03-22 09:15 | Tele-ICU Progress Note ---
Subjective Date Seen by a Provider: Mar 22, 2021 Time Seen by a Provider: 09:15 Sepsis Event Evaluation Height, Weight, BMI Height: 6'3.00" Weight: 401lbs. 0.0oz. 181.677946kw; 60.27 BMI Method:Actual Focused Exam Time of Focused Exam: 21:25 Exam Exam Patient acknowledged, consented, and participated in this virtual visit which was conducted using real time audio/video Vital Signs Date Time Temp Pulse Resp B/P (MAP) Pulse Ox O2 Delivery O2 Flow Rate FiO2 03/22/21 08:06 94 Mechanical Ventilator 40 03/22/21 08:06 Mechanical Ventilator 40.00 03/22/21 08:05 40 03/22/21 08:00 39.6 65 18 146/80 95 Mechanical Ventilator 45.00 03/22/21 07:00 39.6 66 18 149/81 94 Mechanical Ventilator 45.00 03/22/21 07:00 66 03/22/21 06:21 66 17 95 45 03/22/21 06:00 39.6 67 18 151/83 95 Mechanical Ventilator 45.00 03/22/21 05:46 68 149/83 03/22/21 05:46 68 24 149/83 03/22/21 05:46 68 149/83 03/22/21 05:45 68 149/83 03/22/21 05:45 68 149/83 03/22/21 05:00 39.6 68 24 149/83 95 Mechanical Ventilator 45.00 03/22/21 04:55 Mechanical Ventilator 45.00 03/22/21 04:00 55 03/22/21 04:00 95 Mechanical Ventilator 55 03/22/21 04:00 39.5 66 20 175/94 95 Mechanical Ventilator 50.00 03/22/21 03:00 39.6 61 18 172/102 94 Mechanical Ventilator 50.00 03/22/21 02:41 60 18 94 45 03/22/21 02:00 39.7 61 18 187/107 96 Mechanical Ventilator 50.00 03/22/21 01:00 63 03/22/21 01:00 39.9 62 18 177/103 96 Mechanical Ventilator 50.00 03/22/21 00:22 65 160/96 03/22/21 00:22 65 160/96 03/22/21 00:21 65 160/96 03/22/21 00:21 65 160/96 03/22/21 00:00 55 03/22/21 00:00 40.0 64 18 166/101 97 Mechanical Ventilator 50.00 03/21/21 23:59 95 Mechanical Ventilator 55 03/21/21 23:00 40.0 65 18 157/99 96 Mechanical Ventilator 50.00 03/21/21 22:00 40.1 65 18 144/90 95 Mechanical Ventilator 50.00 03/21/21 21:45 65 22 98 45 03/21/21 21:00 40.1 65 20 154/92 98 Mechanical Ventilator 50.00 03/21/21 20:00 95 Mechanical Ventilator 55 03/21/21 20:00 55 03/21/21 20:00 40.1 67 22 142/86 97 Mechanical Ventilator 50.00 03/21/21 19:53 68 17 138/83 03/21/21 19:00 40.2 68 17 138/83 97 Mechanical Ventilator 50.00 03/21/21 18:59 70 03/21/21 18:59 69 19 96 55 03/21/21 18:29 71 135/80 03/21/21 18:28 71 135/80 03/21/21 18:28 71 135/80 03/21/21 18:27 71 135/80 03/21/21 18:00 40.3 71 20 135/80 96 Mechanical Ventilator 50.00 03/21/21 17:00 40.2 71 18 160/94 94 Mechanical Ventilator 50.00 03/21/21 16:00 55 03/21/21 16:00 95 Mechanical Ventilator 55 03/21/21 16:00 40.1 71 18 166/94 93 Mechanical Ventilator 50.00 03/21/21 15:00 40.1 70 20 159/89 93 Mechanical Ventilator 50.00 03/21/21 14:56 70 21 93 55 03/21/21 14:00 39.8 70 25 154/87 92 Mechanical Ventilator 50.00 03/21/21 13:00 39.6 68 18 131/78 92 Mechanical Ventilator 50.00 03/21/21 13:00 69 03/21/21 12:10 39.4 03/21/21 12:00 55 03/21/21 12:00 95 Mechanical Ventilator 55 03/21/21 12:00 39.4 67 19 133/71 91 Mechanical Ventilator 50.00 03/21/21 11:40 65 141/76 03/21/21 11:39 65 141/76 03/21/21 11:39 65 141/76 03/21/21 11:39 65 141/76 03/21/21 11:00 39.4 65 20 141/76 91 Mechanical Ventilator 50.00 03/21/21 10:53 66 20 91 55 03/21/21 10:00 39.4 64 10 143/100 93 Mechanical Ventilator 50.00 I & O 03/22/21 07:00 Intake Total 2400 ml Output Total 3340 ml Balance -940 ml Height & Weight Height: 6'3.00" Weight: 401lbs. 0.0oz. 181.419046ii; 60.27 BMI Method:Actual General Appearance: No Apparent Distress, Chronically ill HEENT: Other (Facial edema unchanged there is less erythema no induration edema is most prevalent on the lips but not tense) Respiratory: Other (Chest clear anteriorly) Cardiovascular: Regular Rate, Rhythm, No Gallop, No Murmur Capillary Refill: Less Than 3 Seconds Peripheral Pulses: 2+ Radial Pulses (R), 2+ Radial Pulses (L) Gastrointestinal: normal bowel sounds, non tender, soft, no organomegaly Extremity: Other (3+ symmetrical forced extremity edema extremities are warm no ulceration. No erythema) Skin: Other (angioedema of lips) Results Lab Laboratory Tests 03/21/21 04:30 03/22/21 03:40 Assessment/Plan Assessment/Plan Tele-ICU Physician , Progress Note ) Available chart/ vitals / labs / Images reviewed Video assessment done using teleICU camera, rest of exam as per RN Discussed with RN , EXAM PER RN Events overnight : still febrile febrilke FiO2 50 I/O = neg 500 Drips: Pressors: , hemodynamically stable Sedation gtt: propofol 20 precedex 1.5 versed 8 ( RASS -2 ) fent prn VENT SETTINGS and ABG reviewed Not candidate for SBT today REVIEWED Cardiovascular Stability / Sedation Score / FI02/PEEP / ABG / CXR Consultants: cards, ENT Hospital course: 03/09 - COVID PNA , ( post J&J) DIFFICULT INTUBATION 03/10 - peep 12 , 70% 03/11 -peep 12 70% , increased edema of lips and tongue - INCREASED DECARDONE TO 10 q6H 03/12 - 100% peep 20 03/13- 80/+14- OFF DECARDONE 03/15- 60 % +10 03/16- 40% +10, can not do cuff leak test - copious oral secretions - scopalamine patch started 03/18- 50% +8 , starting precedex ,Epistaxix - RIGHT nostril 2/ - ENT consult , new fever 38 2/5 - persistent fever 40 - started on vanco 03/22 - 40 % . +8 , still febrile - US liver A/P AHRF / ARDS due to severe COVID19 - Intubated 03/09 in ER -AC 18 - 500 ( 6cc/kg =480) -50% +8 , starting precedex, trying to wean off propofol , prn pain meds ( with chronic pain syndrome ) - follow CUFF LEAK test WAS NOT DONE - copious oral secretions are better - - WILL BE VERY CAUTION WITH EXTUBATION ATTEMPTS IF LEAK IS LOW - attempts to decrease sedations today Difficult intubation in ER - done by anesthesiology -appears to be old tracheostomy scar in place as per noted with redundant scar tissue from previous tracheostomy - in ER c/o facial swelling 5 days ( taken Benadryl ) DECARDONE OFF VWAW-[place]-2/COVID-19 PNA ( Symptom onset ~? DX Received J&J vaccine --Dexamethasone - STOP ON 03/22 -Hypercoagulable state , thrombotic microangiopathy, DDIMER low on amd 03/12 -> lovenox ppx dose 60 bid Suspected superimposed bact PNA ( flu neg) -empiric abx Zosyn 03/10 - STILL ON - and Vanco started on 03/10--2/5 Cx sputum + STAPH MSSA- OFF VANCO new fever 03/19- repeat cx from line - negative and repeat ddimer 03/20 - started vanco 03/21 - port and periph cx - pending 03/22 US liver CAD, stent 2007 - ECHO 03/10= EF 45% - cont diuresis Hyperglycemia - ISS , close f/up on steroids Chronic pain syndrome - baclofen, hydrocodone JD EDWARDS - prm fentanyl IV HTN morbid obesity Elevated TGL - will try minimzing propofol again Epistaxix - RIGHT nostril 2/3 - spontaneously stopped - ENT consult appreciated 03/19 Lines : R IJ 03/09 (Central Line Necessity Reviewed) Haddad: + OG: Nutrition: TF - tolerates Analgesia: Anxiety/ delirium VTE Prophylaxis: zully 60 bid Stress Ulcer Prophylaxis: ppi Glycemic Control: Plans in collaboration with bedside consultants and IM MDs. Discussed with RN to reach out if any questions or concerns A total of 35 minutes of critical care time was devoted to this patient today, required to treat and/or prevent further deterioration of critical care condition ( as above ) . ÓSCAR DALLAS MD Mar 22, 2021 09:15
[2021-03-22 09:59] VITALS: BP 141/78
--- NOTE | 2021-03-22 10:05 | Cardiology Progress Note ---
Progress Note-Cardiology Events since last exam Date Seen by Provider: Mar 22, 2021 Time Seen by Provider: 10:04 Events since last exam I am following him due to probable non-ST elevation with superimposed mild left ventricular systolic dysfunction on top of Covid infection. He has been febrile for the past 3 days but his oxygen requirements have gone down. His FiO2 and PEEP settings on the ventilator both lower when compared to last weekend. He is not on any vasopressor medications. The nurse is attempting to transition propofol over to Precedex. I viewed the patient from the doorway given his Covid status. I did speak with his nurse of today. Certain portions of this document may have been dictated utilizing voice recognition technology. Inherent to this technology, typographical and grammati nam errors may exist. As much as I am diligent to identify and correct these mistakes, some errors may remain in the document. Vitals Last set of Vitals Signs Vital Signs 03/22/21 03/22/21 03/22/21 09:59 12:00 12:32 Temp 39.7 Pulse 80 Resp 30 B/P (MAP) 102/58 Pulse Ox 92 O2 Delivery Mechanical Ventilator O2 Flow Rate 40.00 FiO2 40 Labs Labs Laboratory Tests 03/22/21 03:40 Exam Vital Signs Vital Signs Date Time Temp Pulse Resp B/P (MAP) Pulse Ox O2 Delivery O2 Flow Rate FiO2 03/22/21 12:32 80 03/22/21 12:00 39.7 30 102/58 92 Mechanical Ventilator 40.00 03/22/21 09:59 40 Physical Exam Due to the patient's COVID status, I viewed the patient from the doorway. He is morbidly obese. General: The patient is intubated and sedated. HENT: Normocephalic. Atraumatic. Respiratory: Symmetrical expansion bilaterally. Skin: There is no pallor. Neurologic: Intubated and sedated. Psychiatric: Not obtainable due to clinical status. Labs Laboratory Tests Test 03/21/21 17:34 03/22/21 03:40 03/22/21 12:47 Range/Units Glucometer 157 H 143 H 70-110 MG/DL White Blood Count 13.1 H 4.3-11.0 10^3/uL Red Blood Count 5.05 4.30-5.52 10^6/uL Hemoglobin 15.3 13.3-17.7 g/dL Hematocrit 50 40-54 % Mean Corpuscular Volume 99 80-99 fL Mean Corpuscular Hemoglobin 30 25-34 pg Mean Corpuscular Hemoglobin Concent 31 L 32-36 g/dL Red Cell Distribution Width 13.2 10.0-14.5 % Platelet Count 211 130-400 10^3/uL Mean Platelet Volume 10.7 9.0-12.2 fL Immature Granulocyte % (Auto) 0 % Neutrophils (%) (Auto) 68 42-75 % Lymphocytes (%) (Auto) 19 12-44 % Monocytes (%) (Auto) 12 0-12 % Eosinophils (%) (Auto) 0 0-10 % Basophils (%) (Auto) 1 0-10 % Neutrophils # (Auto) 8.8 H 1.8-7.8 10^3/uL Lymphocytes # (Auto) 2.5 1.0-4.0 10^3/uL Monocytes # (Auto) 1.6 H 0.0-1.0 10^3/uL Eosinophils # (Auto) 0.0 0.0-0.3 10^3/uL Basophils # (Auto) 0.1 0.0-0.1 10^3/uL Immature Granulocyte # (Auto) 0.0 0.0-0.1 10^3/uL Blood Gas Puncture Site RIGHT RADIAL Blood Gas Patient Temperature 39.5 Arterial Blood pH 7.35 L 7.37-7.43 Arterial Blood Partial Pressure CO2 54 H 35-45 MMHG Arterial Blood Partial Pressure O2 70 L 79-93 MMHG Arterial Blood HCO3 29 H 23-27 MMOL/L Arterial Blood Total CO2 30.1 21.0-31.0 MMOL/L Arterial Blood Oxygen Saturation 89 L 94-100 % Arterial Blood Base Excess 3.9 H -2.5-2.5 MMOL/L Ignacio Test YES-POS Blood Gas Ventilator Setting YES Blood Gas Inspired Oxygen 45% Sodium Level 143 135-145 MMOL/L Potassium Level 4.2 3.6-5.0 MMOL/L Chloride Level 109 H 98-107 MMOL/L Carbon Dioxide Level 23 21-32 MMOL/L Anion Gap 11 5-14 MMOL/L Blood Urea Nitrogen 28 H 7-18 MG/DL Creatinine 0.80 0.60-1.30 MG/DL Estimat Glomerular Filtration Rate 109 BUN/Creatinine Ratio 35 Glucose Level 147 H 70-105 MG/DL Calcium Level 8.4 L 8.5-10.1 MG/DL Corrected Calcium 9.1 8.5-10.1 MG/DL Phosphorus Level 3.5 2.3-4.7 MG/DL Magnesium Level 2.0 1.6-2.4 MG/DL Total Bilirubin 0.6 0.1-1.0 MG/DL Aspartate Amino Transf (AST/SGOT) 89 H 5-34 U/L Alanine Aminotransferase (ALT/SGPT) 185 H 0-55 U/L Alkaline Phosphatase 53 40-136 U/L Total Creatine Kinase 246 H 30-200 U/L Total Protein 6.6 6.4-8.2 GM/DL Albumin 3.1 L 3.2-4.5 GM/DL Triglycerides Level 244 H <150 MG/DL Diagnosis/Problems Diagnosis/Problems (1) Non-ST elevation myocardial infarction (NSTEMI), initial care episode Status: Acute Assessment & Plan: He appears to have suffered a non-ST elevation myocardial infarction. There was no evidence of ST elevation on his electrocardiograms. Unfortunately, due to his morbid obesity, his weight is above the limit of our cardiac catheterization table. As such, the best we can do for this patient at this point in time is medical management. He received therapeutic dosing of enoxaparin for 5 days and I changed this over to prophylactic dosing for deep venous thrombosis on 03/15. I restarted ticagrelor that he was supposed to be taking at home and also added low-dose aspirin. I also started low-dose carvedilol and intensive dose statin medication. His clinical course will likely be complicated due to the superimposed Covid infection and his morbid obesity. Given the recurrent fevers without any known source, this does raise concern for possible myocarditis brought on by Covid infection. I have ordered a troponin level to be added to this morning's labs. If this is higher than it was earlier in his admission, then he may need a follow-up echocardiogram. (2) Cardiomyopathy Status: Acute Assessment & Plan: His echocardiogram from this admission showed possible mild left ventricular systolic dysfunction but was a very technically difficult study. We will continue guideline directed medical therapy as tolerated by his blood pressure and renal function. He is on carvedilol and hydralazine. YUDI inhibitor was discontinued due to swelling of his lips with possible concern for angioedema. For this reason, he is not a good candidate for ARB. (3) Acute HFrEF (heart failure with reduced ejection fraction) Status: Acute Assessment & Plan: His chest x-rays had showed evidence of pulmonary congestion but was improved on 03/15 and again 03/18. I started him on IV furosemide twice daily on 03/11 and this was reduced to once daily on 03/18. We will need to monitor his renal function closely. We will continue carvedilol and hydralazine as above. (4) Primary hypertension Status: Chronic Assessment & Plan: His blood pressures have been now reasonably controlled for the past several days on the current combination of carvedilol and hydralazine. I would avoid rapid up titration of his antihypertensive medication or he may develop iatrogenic hypotension. (5) Noncompliance with medication regimen Assessment & Plan: He has a reported history of noncompliance with his medications. This is probably contributing to his current clinical situation. (6) Morbid obesity Status: Chronic Assessment & Plan: Unfortunately, due to his morbid obesity, he is above the weight limit for our cardiac catheterization table as outlined above. ROB CANTOR JR, MD Mar 22, 2021 10:05
--- NOTE | 2021-03-22 12:48 | Diagnostic Imaging Report ---
PROCEDURE: US Hepatic (Liver). TECHNIQUE: Multiple real-time grayscale images were obtained over the right upper quadrant in various projections. INDICATION: Elevated liver enzymes. Febrile. There is hepatomegaly, liver measures 23 cm. The bile ducts are not dilated. The common duct measures 6 mm. The gallbladder is filled with gallstones. Gallbladder wall is mildly thickened at 3 mm. No pericholecystic fluid is seen. The pancreas is obscured by bowel gas. The aorta, vena cava and portal vein appear normal with Doppler sampling. Right kidney measures 14 x 6.5 x 7 cm. There is no hydronephrosis. No calculi. There is no ascites. Negative Cadena sign. Patient was sedated and on ventilator however. IMPRESSION: Limited exam due to patient being on ventilator. Hepatomegaly with cholelithiasis. No definite acute cholecystitis is seen. Dictated by: Dictated on workstation # [id number]
[2021-03-22 14:26] VITALS: BP 131/77
--- NOTE | 2021-03-22 17:09 | Progress Note ---
Subjective Subjective/Events-last exam Patient intubated and sedated Review of Systems Unable to obtain, Intubated and Sedated Focused Exam Time of Focused Exam: 21:25 Objective Exam Last Set of Vital Signs Vital Signs Date Time Temp Pulse Resp B/P (MAP) Pulse Ox O2 Delivery O2 Flow Rate FiO2 03/22/21 16:36 63 23 169/95 03/22/21 16:26 94 Mechanical Ventilator 40 03/22/21 16:00 39.0 40.00 Capillary Refill : Less Than 3 Seconds I&O Intake and Output 03/22/21 00:00 Intake Total 2250 ml Output Total 3465 ml Balance -1215 ml Tube Feeding 1200 ml Other 1050 ml Output Urine Total 3465 ml General: Other (Intubated and sedated) HEENT: Other (facial swelling with some ecchamosis) Lungs: Other (Diminished breath sounds with diffuse crackles) Heart: Regular Rate, No Murmurs Abdomen: Normal Bowel Sounds, Soft Extremities: Other (2+ pitting edema bilaterally) Results/Procedures Lab Laboratory Tests 03/21/21 17:34: Glucometer 157H 03/22/21 03:40: White Blood Count 13.1H, Red Blood Count 5.05, Hemoglobin 15.3, Hematocrit 50, Mean Corpuscular Volume 99, Mean Corpuscular Hemoglobin 30, Mean Corpuscular Hemoglobin Concent 31L, Red Cell Distribution Width 13.2, Platelet Count 211, Mean Platelet Volume 10.7, Immature Granulocyte % (Auto) 0, Neutrophils (%) (Auto) 68, Lymphocytes (%) (Auto) 19, Monocytes (%) (Auto) 12, Eosinophils (%) (Auto) 0, Basophils (%) (Auto) 1, Neutrophils # (Auto) 8.8H, Lymphocytes # (Auto) 2.5, Monocytes # (Auto) 1.6H, Eosinophils # (Auto) 0.0, Basophils # (Auto) 0.1, Immature Granulocyte # (Auto) 0.0, Blood Gas Puncture Site RIGHT RADIAL, Blood Gas Patient Temperature 39.5, Arterial Blood pH 7.35L, Arterial Blood Partial Pressure CO2 54H, Arterial Blood Partial Pressure O2 70L, Arterial Blood HCO3 29H, Arterial Blood Total CO2 30.1, Arterial Blood Oxygen Saturation 89L, Arterial Blood Base Excess 3.9H, Ignacio Test YES-POS, Blood Gas Ventilator Setting YES, Blood Gas Inspired Oxygen 45%, Sodium Level 143, Potassium Level 4.2, Chloride Level 109H, Carbon Dioxide Level 23, Anion Gap 11, Blood Urea Nitrogen 28H, Creatinine 0.80, Estimat Glomerular Filtration Rate 109, BUN/Creatinine Ratio 35, Glucose Level 147H, Calcium Level 8.4L, Corrected Calcium 9.1, Phosphorus Level 3.5, Magnesium Level 2.0, Total Bilirubin 0.6, A spartate Amino Transf (AST/SGOT) 89H, Alanine Aminotransferase (ALT/SGPT) 185H, Alkaline Phosphatase 53, Total Creatine Kinase 246H, Total Protein 6.6, Albumin 3.1L, Triglycerides Level 244H 03/22/21 12:47: Glucometer 143H 03/22/21 13:07: Troponin I 0.166H Microbiology 03/21/21 Blood Culture - Preliminary, Resulted No growth 03/10/21 Gram Stain - Final, Complete 03/10/21 Sputum Culture - Final, Complete Usual upper respiratory erick Staphylococcus aureus 03/09/21 Urine Culture - Final, Complete NO GROWTH Assessment/Plan Assessment/Plan (1) Acute on chronic respiratory failure with hypoxia and hypercapnia Status: Acute Assessment & Plan: Ventilator dependent, appreciate [facility] ICU recommendations. Suspect secondary to COVID19 infection with superimposed CHF and pulmonary edema. 03/22: Continues to be ventilator dependent, eICU managing (2) Facial cellulitis Status: Acute Assessment & Plan: Question of facial cellulitis vs angioedema prior to admission. Completed 5 days of Zosyn, remains on vancomycin. Will resume Zosyn due to growth of aerococcus in blood x 2 and stop vancomycin given negative MRSA swab. 03/19/21- continue zosyn, held lisinopril due to facial swelling/possible angioedema, is on dexamethasone. 03/22: Continues to have fevers, will pull central line and plan to place PICC line, will culture tip (3) COVID-19 Status: Acute Assessment & Plan: Unknown onset of symptoms. On dexamethasone day 10. (4) Morbid obesity Status: Chronic (5) Primary hypertension Status: Chronic Assessment & Plan: Initially hypotensive, blood pressure trending back up, appreciate Cardiology management. (6) Non-ST elevation myocardial infarction (NSTEMI), initial care episode Status: Acute Assessment & Plan: Elevated troponin on admit, unable to cath due to weight limit of table, on therapeutic enoxaparin x 5 days, changed back to prophylactic dose per Cardiology, started on ticagrelor. 03/22: Troponin trending down, Maximize conservative management due to weight limits (7) Acute HFrEF (heart failure with reduced ejection fraction) Status: Acute Assessment & Plan: Appreciate Cardiology recommendations, receiving IV lasix, echo with somewhat reduced EF but difficult to evaluate well due to body habitus. (8) DVT prophylaxis Status: Acute Assessment & Plan: Enoxaparin (9) Discharge planning issues Status: Acute Assessment & Plan: 03/15- Called Guerda to update on current status and discuss plans, no answer, voicemail not set up. 03/16- Called Guerda (sister) and updated on status, she denied further questions at this time. 03/17- spoke with Guerda around 0830, discussed no significant changes from yesterday, awaiting [facility] ICU physician plan later this morning. 03/18- Called to update at 1438, no answer. 03/19- Spoke to Guerda and updated BOBBY DIETZ MD Mar 22, 2021 17:09
[2021-03-22 18:53] VITALS: BP 170/92
[2021-03-22] MEDS: ROSUVASTATIN 20 MG (CRESTOR) TABLET PO SCH (20:05)
[2021-03-22 22:26] VITALS: BP 182/102
[2021-03-22] MEDS: ACETAMINOPHEN 325 MG TABLET PO PRN (22:53)
[2021-03-23] MEDS: fentaNYL INJ 100 MCG/2 ML AMP IV PRN (00:15)
[2021-03-23] MEDS: inSUlin ASPART (NovoLOG) 1 UNIT/0.01 ML (CHARGE PER UNIT) SC SCH ×5 (00:21→23:59)
[2021-03-23] MEDS: hydrALAZINE (APESOLINE) 20 MG/ML VIAL IV PRN (00:25)
[2021-03-23] MEDS: RT-ALBUTEROL HFA 8.5 GM INHALER IH SCH ×6 (01:50→21:59)
[2021-03-23] MEDS: PROPOFOL DRIP (ICU) 100 ML IV SCH ×4 (01:51→20:59)
[2021-03-23] MEDS: MIDAZOLAM DRIP PRE-MIX 100 ML IV SCH ×2 (01:51→11:22)
[2021-03-23] MEDS: PIPERACILLIN SODIUM/TAZOBACTAM 4.5 GM in NS (IVPB) 100 ML IV SCH ×3 (01:51→16:19)
[2021-03-23 01:53] VITALS: BP 182/102
[2021-03-23] MEDS: VANCOMYCIN 1250 MG/NS 250 ML IVPB IV SCH ×6 (04:02→17:55)
[2021-03-23] MEDS: NOREPINEPHRINE 8 MG/250 ML 250 ML IV SCH ×4 (04:03→23:04)
[2021-03-23 04:34] LABS: ABG BASE EXCESS 1.8 MMOL/L (-2.5-2.5); ABG OXYGEN SATURATION 90 % (94-100); ABG PCO2 45 MMHG (35-45); ABG PH 7.39 (7.37-7.43); ABG PO2 67 MMHG (79-93); ABG TCO2 27.2 MMOL/L (21.0-31.0)
[2021-03-23 04:35] LABS: ALLENS TEST YES-POS; INSPIRED O2 40%; VENTILATOR YES
[2021-03-23 04:38] LABS: BASOPHILS # (AUTO) 0.1 10^3/uL (0.0-0.1); BASOPHILS % (AUTO) 1 % (0-10); EOSINOPHILS # (AUTO) 0.1 10^3/uL (0.0-0.3); EOSINOPHILS % (AUTO) 1 % (0-10); HEMATOCRIT 49 % (40-54); HEMOGLOBIN 15.1 g/dL (13.3-17.7); LYMPHOCYTES # (AUTO) 2.4 10^3/uL (1.0-4.0); LYMPHOCYTES % (AUTO) 21 % (12-44); MEAN CORPUSCULAR HEMOGLOBIN 30 pg (25-34); MEAN CORPUSCULAR HGB CONC 31 g/dL (32-36); MEAN CORPUSCULAR VOLUME 98 fL (80-99); MEAN PLATELET VOLUME 11.4 fL (9.0-12.2); MONOCYTES % (AUTO) 9 % (0-12); NEUTROPHILS # (AUTO) 7.7 10^3/uL (1.8-7.8); NEUTROPHILS % (AUTO) 68 % (42-75); PLATELET COUNT 183 10^3/uL (130-400); WHITE BLOOD COUNT 11.3 10^3/uL (4.3-11.0)
[2021-03-23 04:44] LABS: POTASSIUM 3.9 MMOL/L (3.6-5.0)
[2021-03-23 04:45] LABS: CALCIUM 8.3 MG/DL (8.5-10.1)
[2021-03-23 04:46] LABS: TOTAL PROTEIN 6.4 GM/DL (6.4-8.2)
[2021-03-23 04:48] LABS: BILIRUBIN,TOTAL 0.5 MG/DL (0.1-1.0)
[2021-03-23 04:49] LABS: PHOSPHORUS 3.1 MG/DL (2.3-4.7)
[2021-03-23 04:50] LABS: CREATININE SERUM 0.77 MG/DL (0.60-1.30)
[2021-03-23 04:53] LABS: MAGNESIUM 2.3 MG/DL (1.6-2.4)
[2021-03-23] MEDS: CATHETER FLUSH 10 ML SYR IV SCH ×3 (05:02→22:04)
[2021-03-23] MEDS: POTASSIUM CL 10MEQ/50ML IVPB 50 ML IV SCH (05:02)
[2021-03-23] MEDS: MAGNESIUM 1 GM/100 ML IVPB 100 ML IV SCH (05:06)
[2021-03-23] MEDS: KCL 20 MEQ TAB (K-DUR) PO SCH (05:06)
[2021-03-23] MEDS: hydrALAZINE (APRESOLINE) 25 MG TAB PO SCH ×3 (05:24→23:30)
[2021-03-23] MEDS: DexMEDEtomidine 250 ML DRIP 250 ML IV SCH ×4 (05:52→17:55)
[2021-03-23 08:15] VITALS: BP 158/88
[2021-03-23] MEDS: ASPIRIN 81 MG CHEW (CHILDREN'S ASA) PO SCH (09:00)
[2021-03-23] MEDS: PANTOPRAZOLE 40 MG (PROTONIX) VIAL IV SCH (09:00)
[2021-03-23] MEDS: FUROSEMIDE 40 MG/4 ML INJ (LASIX) IVP SCH (09:00)
[2021-03-23] MEDS ORDERED: TROUGH ORDER-PHARMACY XX ONE (09:00)
[2021-03-23] MEDS: FAMOTIDINE 20MG/2ML IV (PEPCID) IVP SCH (09:00)
[2021-03-23] MEDS: TICAGRELOR 90 MG TABLET (BRILINTA) PO SCH ×2 (09:01→21:01)
[2021-03-23] MEDS: MICONAZOLE 2% POWDER (DESENEX AF) 90 GM TOP SCH ×4 (09:01→21:01)
[2021-03-23] MEDS: ENOXAPARIN 60 MG/0.6 ML (LOVENOX) SYR SQ SCH ×2 (09:01→21:01)
--- NOTE | 2021-03-23 09:06 | Cardiology Progress Note ---
Progress Note-Cardiology Events since last exam Date Seen by Provider: Mar 23, 2021 Time Seen by Provider: 09:04 Events since last exam I am following him due to probable non-ST elevation myocardial infarction with superimposed mild cardiomyopathy and heart failure all on top of Covid infection. Today is day 14 on the ventilator for the patient. Weaning trials have been in progress but on 03/22, the patient again became agitated and developed tachypnea and tachycardia so sedation was resumed. He was placed on a background of Precedex late last week hoping this would help with his agitation. He has not been requiring any vasopressor agents. He continues to have intermittent fevers. His central line was removed yesterday and the tip was cultured. I did not examine the patient due to his COVID status. I did view him from the doorway. I also spoke with his nurse of today. Certain portions of this document may have been dictated utilizing voice recognition technology. Inherent to this technology, typographical and grammatical errors may exist. As much as I am diligent to identify and correct these mistakes, some errors may remain in the document. Vitals Last set of Vitals Signs Vital Signs 03/23/21 03/23/21 03/23/21 10:36 11:00 11:22 Temp 38.6 Pulse 62 Resp 22 B/P (MAP) 129/71 Pulse Ox 94 O2 Delivery Mechanical Ventilator O2 Flow Rate 40.00 FiO2 40 Labs Labs Laboratory Tests 03/23/21 04:10 Exam Vital Signs Vital Signs Date Time Temp Pulse Resp B/P (MAP) Pulse Ox O2 Delivery O2 Flow Rate FiO2 03/23/21 11:22 62 22 129/71 03/23/21 11:00 38.6 94 Mechanical Ventilator 40.00 03/23/21 10:36 40 Physical Exam Due to the patient's COVID status, I viewed the patient from the doorway. General: The patient is intubated and sedated. He is morbidly obese. HENT: Normocephalic. Atraumatic. Respiratory: Symmetrical expansion bilaterally. Skin: There is no pallor. Neurologic: Intubated and sedated. Psychiatric: Not obtainable due to clinical status. Labs Laboratory Tests Test 03/22/21 12:47 03/22/21 13:07 03/22/21 17:23 03/23/21 00:20 Range/Units Glucometer 143 H 163 H 163 H 70-110 MG/DL Troponin I 0.166 H <0.028 NG/ML Test 03/23/21 04:10 03/23/21 04:15 03/23/21 09:05 Range/Units White Blood Count 11.3 H 4.3-11.0 10^3/uL Red Blood Count 5.02 4.30-5.52 10^6/uL Hemoglobin 15.1 13.3-17.7 g/dL Hematocrit 49 40-54 % Mean Corpuscular Volume 98 80-99 fL Mean Corpuscular Hemoglobin 30 25-34 pg Mean Corpuscular Hemoglobin Concent 31 L 32-36 g/dL Red Cell Distribution Width 13.4 10.0-14.5 % Platelet Count 183 130-400 10^3/uL Mean Platelet Volume 11.4 9.0-12.2 fL Immature Granulocyte % (Auto) 0 % Neutrophils (%) (Auto) 68 42-75 % Lymphocytes (%) (Auto) 21 12-44 % Monocytes (%) (Auto) 9 0-12 % Eosinophils (%) (Auto) 1 0-10 % Basophils (%) (Auto) 1 0-10 % Neutrophils # (Auto) 7.7 1.8-7.8 10^3/uL Lymphocytes # (Auto) 2.4 1.0-4.0 10^3/uL Monocytes # (Auto) 1.0 0.0-1.0 10^3/uL Eosinophils # (Auto) 0.1 0.0-0.3 10^3/uL Basophils # (Auto) 0.1 0.0-0.1 10^3/uL Immature Granulocyte # (Auto) 0.1 0.0-0.1 10^3/uL Sodium Level 142 135-145 MMOL/L Potassium Level 3.9 3.6-5.0 MMOL/L Chloride Level 110 H 98-107 MMOL/L Carbon Dioxide Level 22 21-32 MMOL/L Anion Gap 10 5-14 MMOL/L Blood Urea Nitrogen 32 H 7-18 MG/DL Creatinine 0.77 0.60-1.30 MG/DL Estimat Glomerular Filtration Rate 110 BUN/Creatinine Ratio 42 Glucose Level 150 H 70-105 MG/DL Calcium Level 8.3 L 8.5-10.1 MG/DL Corrected Calcium 9.1 8.5-10.1 MG/DL Phosphorus Level 3.1 2.3-4.7 MG/DL Magnesium Level 2.3 1.6-2.4 MG/DL Total Bilirubin 0.5 0.1-1.0 MG/DL Aspartate Amino Transf (AST/SGOT) 112 H 5-34 U/L Alanine Aminotransferase (ALT/SGPT) 261 H 0-55 U/L Alkaline Phosphatase 53 40-136 U/L Total Protein 6.4 6.4-8.2 GM/DL Albumin 3.0 L 3.2-4.5 GM/DL Blood Gas Puncture Site LEFT RADIAL Blood Gas Patient Temperature 39.0 Arterial Blood pH 7.39 7.37-7.43 Arterial Blood Partial Pressure CO2 45 35-45 MMHG Arterial Blood Partial Pressure O2 67 L 79-93 MMHG Arterial Blood HCO3 26 23-27 MMOL/L Arterial Blood Total CO2 27.2 21.0-31.0 MMOL/L Arterial Blood Oxygen Saturation 90 L 94-100 % Arterial Blood Base Excess 1.8 -2.5-2.5 MMOL/L Ignacio Test YES-POS Blood Gas Ventilator Setting YES Blood Gas Inspired Oxygen 40% Vancomycin Level Trough 17.9 10.0-20.0 UG/ML Diagnosis/Problems Diagnosis/Problems (1) Non-ST elevation myocardial infarction (NSTEMI), initial care episode Status: Acute Assessment & Plan: He appears to have suffered a non-ST elevation myocardial infarction. There was no evidence of ST elevation on his electrocardiograms. Unfortunately, due to his morbid obesity, his weight is above the limit of our cardiac catheterization table. As such, the best we can do for this patient at this point in time is medical management. He received therapeutic dosing of enoxaparin for 5 days and I changed this over to prophylactic dosing for deep venous thrombosis on 03/15. We will continue aspirin, ticagrelor, beta-cameron and statin medication. His clinical course will likely be complicated due to th e superimposed Covid infection and his morbid obesity. I did obtain a follow-up troponin level on 03/22 and this was still trending downwards which would be suggestive that he does not have any ongoing myocardial injury either due to coronary artery disease or potentially myocarditis caused by Covid infection. This is reassuring. (2) Cardiomyopathy Status: Acute Assessment & Plan: His echocardiogram from this admission showed possible mild left ventricular systolic dysfunction but was a very technically difficult study. We will continue guideline directed medical therapy as tolerated by his blood pressure and renal function. He is on carvedilol and hydralazine. I will add long-acting nitrates. YUDI inhibitor was discontinued due to swelling of his lips with possible concern for angioedema. For this reason, he is not a good candidate for ARB. He was seen by otolaryngology who does not believe he had angioedema but I would rather be conservative at this point in time and not take a risk by restarting YUDI inhibitor. (3) Acute HFrEF (heart failure with reduced ejection fraction) Status: Acute Assessment & Plan: His chest x-rays had showed evidence of pulmonary congestion but was improved on 03/15 and again 03/18. I started him on IV furosemide twice daily on 03/11 and this was reduced to once daily on 03/18. We will need to monitor his renal function closely. We will continue carvedilol and hydralazine as above and I have ordered long-acting nitrates as above. (4) Primary hypertension Status: Chronic Assessment & Plan: His blood pressures have been now reasonably controlled for the past several days on the current combination of carvedilol and hydralazine. Due to the mild cardiomyopathy, I will also add long-acting nitrates for afterload reduction. These do not typically lower the blood pressure all that much. I would avoid rapid up titration of his antihypertensive medication or he may develop iatrogenic hypotension. (5) Acute on chronic respiratory failure with hypoxia and hypercapnia Status: Acute Assessment & Plan: As of 03/23, he has been intubated for 14 days. We need to start thinking about tracheostomy. I have consulted our general surgeon for evaluation for tracheostomy. If this is felt to be too high risk to perform at our facility, then we will need to start looking for another hospital for transfer for tracheostomy. (6) Noncompliance with medication regimen Assessment & Plan: He has a reported history of noncompliance with his medications. This is probably contributing to his current clinical situation. (7) Morbid obesity Status: Chronic Assessment & Plan: Unfortunately, due to his morbid obesity, he is above the weight limit for our cardiac catheterization table as outlined above. ROB CANTOR JR, MD Mar 23, 2021 09:06
[2021-03-23] MEDS: ACETAMINOPHEN 325 MG TABLET PO PRN ×2 (09:08→16:22)
[2021-03-23 10:36] VITALS: BP 119/65
--- NOTE | 2021-03-23 10:58 | Tele-ICU Progress Note ---
Subjective Date Seen by a Provider: Mar 23, 2021 Time Seen by a Provider: 10:58 Sepsis Event Evaluation Height, Weight, BMI Height: 6'3.00" Weight: 401lbs. 0.0oz. [id number]; 60.27 BMI Method:Actual Focused Exam Time of Focused Exam: 21:25 Exam Exam Patient acknowledged, consented, and participated in this virtual visit which was conducted using real time audio/video Vital Signs Date Time Temp Pulse Resp B/P (MAP) Pulse Ox O2 Delivery O2 Flow Rate FiO2 03/23/21 10:36 57 22 95 40 03/23/21 10:00 38.5 57 20 120/64 95 Mechanical Ventilator 40.00 03/23/21 09:08 38.5 03/23/21 09:00 38.5 55 18 159/88 95 Mechanical Ventilator 40.00 03/23/21 08:15 53 19 95 40 03/23/21 08:00 38.6 56 18 155/85 95 Mechanical Ventilator 40.00 03/23/21 07:43 38.6 03/23/21 07:00 38.7 56 18 154/87 95 Mechanical Ventilator 40.00 03/23/21 07:00 56 03/23/21 06:00 38.8 58 18 155/87 95 Mechanical Ventilator 40.00 03/23/21 05:52 58 154/85 03/23/21 05:52 58 154/85 03/23/21 05:00 38.9 58 18 154/85 95 Mechanical Ventilator 40.00 03/23/21 04:00 39.0 61 19 157/83 96 Mechanical Ventilator 40.00 03/23/21 04:00 95 Mechanical Ventilator 40 03/23/21 04:00 40 03/23/21 03:00 39.2 61 18 166/88 96 Mechanical Ventilator 40.00 03/23/21 02:00 39.2 61 18 177/99 96 Mechanical Ventilator 40.00 03/23/21 01:53 61 19 96 40 03/23/21 01:52 61 182/102 03/23/21 01:51 61 19 182/102 03/23/21 01:51 61 182/102 03/23/21 01:00 39.3 62 18 174/94 95 Mechanical Ventilator 40.00 03/23/21 01:00 63 03/23/21 00:00 40 03/23/21 00:00 39.3 60 18 172/96 96 Mechanical Ventilator 40.00 03/22/21 23:59 96 Mechanical Ventilator 40 03/22/21 23:23 39.3 03/22/21 23:00 39.4 61 18 195/111 95 Mechanical Ventilator 40.00 03/22/21 22:53 61 182/102 03/22/21 22:53 61 182/102 03/22/21 22:53 39.4 03/22/21 22:26 61 19 96 40 03/22/21 22:00 39.5 64 18 180/99 96 Mechanical Ventilator 40.00 03/22/21 21:00 39.5 64 19 171/97 96 Mechanical Ventilator 40.00 03/22/21 20:01 39.5 66 22 157/82 95 Mechanical Ventilator 40.00 03/22/21 20:00 95 Mechanical Ventilator 40 03/22/21 20:00 40 03/22/21 19:00 63 03/22/21 19:00 39.5 65 22 156/89 95 Mechanical Ventilator 40.00 03/22/21 18:53 65 18 96 40 03/22/21 18:00 39.4 65 24 167/91 96 Mechanical Ventilator 40.00 03/22/21 17:00 39.2 63 18 175/103 96 Mechanical Ventilator 40.00 03/22/21 16:36 63 23 169/95 03/22/21 16:26 94 Mechanical Ventilator 40 03/22/21 16:24 40 03/22/21 16:00 39.0 63 23 169/95 96 Mechanical Ventilator 40.00 03/22/21 15:34 60 158/90 03/22/21 15:34 60 158/90 03/22/21 15:26 60 158/90 03/22/21 15:25 60 158/90 03/22/21 15:00 38.9 60 36 158/90 94 Mechanical Ventilator 40.00 03/22/21 14:26 61 18 93 40 03/22/21 14:00 39.0 66 31 119/68 92 Mechanical Ventilator 40.00 03/22/21 13:00 39.1 77 22 108/60 93 Mechanical Ventilator 40.00 03/22/21 12:32 80 03/22/21 12:15 40 03/22/21 12:15 94 Mechanical Ventilator 40 03/22/21 12:00 39.7 82 30 102/58 92 Mechanical Ventilator 40.00 03/22/21 11:47 39.6 03/22/21 11:00 39.7 79 23 122/67 92 Mechanical Ventilator 40.00 I & O 03/23/21 07:00 Intake Total 1845 ml Output Total 2570 ml Balance -725 ml Height & Weight Height: 6'3.00" Weight: 401lbs. 0.0oz. 181.975855jp; 60.27 BMI Method:Actual General Appearance: No Apparent Distress, Chronically ill HEENT: Other (Facial edema unchanged there is less erythema no induration edema is most prevalent on the lips but not tense) Respiratory: Other (Chest clear anteriorly) Cardiovascular: Regular Rate, Rhythm, No Gallop, No Murmur Capillary Refill: Less Than 3 Seconds Peripheral Pulses: 2+ Radial Pulses (R), 2+ Radial Pulses (L) Gastrointestinal: normal bowel sounds, non tender, soft, no organomegaly Extremity: Other (3+ symmetrical forced extremity edema extremities are warm no ulceration. No erythema) Skin: Other (angioedema of lips) Results Lab Laboratory Tests 03/22/21 03:40 03/23/21 04:10 Assessment/Plan Assessment/Plan Tele-ICU Physician , Progress Note ) Available chart/ vitals / labs / Images reviewed Video assessment done using teleICU camera, rest of exam as per RN Discussed with RN , EXAM PER RN Events overnight : still febrile febrilke FiO2 50 I/O = neg 500 Drips: Pressors: , hemodynamically stable Sedation gtt: propofol 20 precedex 1.5 versed 8 ( RASS -2 ) fent prn VENT SETTINGS and ABG reviewed Not candidate for SBT today REVIEWED Cardiovascular Stability / Sedation Score / FI02/PEEP / ABG / CXR Consultants: cards, ENT Hospital course: 03/09 - COVID PNA , ( post J&J) DIFFICULT INTUBATION 03/10 - peep 12 , 70% 03/11 -peep 12 70% , increased edema of lips and tongue - INCREASED DECARDONE TO 10 q6H 03/12 - 100% peep 20 03/13- 80/+14- OFF DECARDONE 03/15- 60 % +10 03/16- 40% +10, can not do cuff leak test - copious oral secretions - scopalamine patch started 03/18- 50% +8 , starting precedex ,Epistaxix - RIGHT nostril 03/19 - ENT consult , new fever 38 03/20 - persistent fever 40 - started on vanco 03/22 - 40 % . +8 , still febrile - US liver -No definite acute cholecystitis, R IJ 03/09 - out --> NEW PICC 03/22 A/P AHRF / ARDS due to severe COVID19 - Intubated 03/09 in ER -AC 18 - 500 ( 6cc/kg =480) -40% +8 , starting precedex, trying to wean off propofol , prn pain meds ( with chronic pain syndrome ) - follow CUFF LEAK test to be done - copious oral secretions are better - - WILL BE VERY CAUTION WITH EXTUBATION ATTEMPTS , MOST LIKELY WILL NEED THRACHEOSTOMY - attempts to decrease sedations today again Difficult intubation in ER - done by anesthesiology -appears to be old tracheostomy scar in place as per noted with redundant scar tissue from previous tracheostomy - in ER c/o facial swelling 5 days ( taken Benadryl ) DECARDONE OFF HKOE-Anqzxtrupds-9/COVID-19 PNA ( Symptom onset ~? DX Received J&J vaccine --Dexamethasone - STOP ON 03/22 -Hypercoagulable state , thrombotic microangiopathy, DDIMER low on amd 03/12 -> lovenox ppx dose 60 bid Suspected superimposed bact PNA ( flu neg) - STILL FEBRILE -empiric abx Zosyn 03/10 - STILL ON - and Vanco started on 03/10--03/20 Cx sputum + STAPH MSSA- OFF VANCO new fever 03/19- repeat cx from line - negative and repeat ddimer 03/20 - started vanco 03/21 - port and periph cx - pending 03/22 US liver -No definite acute cholecystitis 03/22 - R IJ 03/09 - out 03/22 TIP CX PENDING , PICC 03/22 NEW CAD, stent 2007 - ECHO 03/10= EF 45% - cont diuresis Hyperglycemia - ISS , close f/up Chronic pain syndrome - baclofen, hydrocodone [employer]IM [employer] - prm fentanyl IV HTN morbid obesity Elevated TGL - will try minimzing propofol again Epistaxix - RIGHT nostril 03/18 - spontaneously stopped - ENT consult appreciated 03/19 Lines : R IJ 03/09 - out 03/22, PICC 03/22 right (Central Line Necessity Reviewed) Haddad: + OG: Nutrition: TF - tolerates Analgesia: Anxiety/ delirium VTE Prophylaxis: zully 60 bid Stress Ulcer Prophylaxis: ppi Glycemic Control: Plans in collaboration with bedside consultants and IM MDs. Discussed with RN to reach out if any questions or concerns A total of 35 minutes of critical care time was devoted to this patient today, required to treat and/or prevent further deterioration of critical care condition ( as above ) . ÓSCAR DALLAS MD Mar 23, 2021 10:58
[2021-03-23] MEDS: VASOPRESSIN INJECTION 20 UNIT in NS (IVPB) 100 ML IV SCH ×2 (12:24→19:38)
[2021-03-23] MEDS: ISOSORBIDE DINITRATE 10 MG (ISORDIL) TABLET PO SCH ×2 (12:24→16:19)
[2021-03-23 14:48] VITALS: BP 124/77
[2021-03-23] MEDS ORDERED: ANIDULAFUNGIN INJECTION 200 MG in NS (IVPB) 250 ML IV ONE (16:00)
[2021-03-23 18:29] VITALS: BP 124/77
--- NOTE | 2021-03-23 20:36 | Consultation - Surgery ---
History of Present Illness History of Present Illness Patient Consulted On(tomasa/time) 03/23/21 20:29 Date Seen by Provider: Mar 23, 2021 Time Seen by Provider: 18:38 History of Present Illness Consult requested by Dr. Funes for possible tracheostomy. Patient is 50-year-old male who has acute respiratory failure where he is required intubation and sedation. He is Covid positive. Patient with morbid obesity and non-ST elevated NH. Patient unable to be extubated at this time. He was reported to have difficult airway for intubation. Patient and unable to provide any information due to being intubated and sedated. Patient has continued to have fevers. Allergies and Home Medications Allergies Coded Allergies: YUDI Inhibitors (Verified Allergy, Severe, Angioedema, 03/19/21) Patient Home Medication List Home Medication List Reviewed: Yes Gabapentin (Gabapentin) 800 Mg Tablet, 800 MG PO FIVE TIMES DAILY, (Reported) Entered as Reported by: SINGH AN on 03/10/21 1512 Last Action: Reviewed Hydrocodone/Acetaminophen (Hydrocodone-Acetamin 7.5-325) 1 Each Tablet, 1 EA PO Q6H PRN for PAIN-MODERATE (5-7), (Reported) Entered as Reported by: SINGH AN on 03/10/21 1512 Last Action: Reviewed Lisinopril (Lisinopril) 5 Mg Tablet, 5 MG PO DAILY, (Reported) Entered as Reported by: KYLEE SOL on 03/22/18 1305 Last Action: Reviewed Past Yvgedzz-Jhikfj-Ouapiw Hx Patient Social History Smoking Status: Current Everyday Smoker (1/2 pack per day) Type Used: Cigarettes 2nd Hand Smoke Exposure: No Recent Hopitalizations: Yes Immunizations Up To Date Tetanus Booster (TDap): More than 5yrs PED Vaccines UTD: No Date of Pneumonia Vaccine: Jul 18, 2017 Date of Influenza Vaccine: Mar 07, 2015 Seasonal Allergies Seasonal Allergies: Yes Surgeries History of Surgeries: Yes Surgeries: Appendectomy, Cardiac, Coronary Stent, Ear Surgery, Orthopedic Respiratory History of Respiratory Disorde: No Respiratory Disorders: COPD Cardiovascular History of Cardiac Disorders: Yes (STENT IN 08 and 2 stents at [facility] 03/07/15) Cardiac Disorders: Chronic Edema/Swelling, Coronary Artery Disease, High Cholesterol, Hypertension Neurological History of Neurological Disord: Yes (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/NUMBNESS IN LEGS) Neurological Disorders: Neuropathy Reproductive System Hx Reproductive Disorders: No Sexually Transmitted Disease: No HIV/AIDS: No Genitourinary History of Genitourinary Disor: No Gastrointestinal History of Gastrointestinal Di: Yes Gastrointestinal Disorders: Gastroesophageal Reflux, Chronic Constipation Musculoskeletal History of Musculoskeletal Dis: Yes Musculoskeletal Disorders: Chronic Back Pain Endocrine History of Endocrine Disorders: Yes (MORBID OBESITY) HEENT History of HEENT Disorders: No Loss of Vision: Denies Hearing Impairment: Denies Cancer History of Cancer: No Psychosocial History of Psychiatric Problem: No Integumentary History of Skin or Integumenta: No Blood Transfusions History of Blood Disorders: No Adverse Reaction to a Blood Tr: No Reviewed Nursing Assessment Reviewed/Agree w Nursing PMH: Yes Family Medical History Significant Family History: No Pertinent Family Hx Family Medial History: Cardiovascular disease 19 FATHER (BYPASS) Hypercholesterolemia 19 FATHER Hypertension 19 FATHER Review of Systems-General ROS-Unable to Obtain: Unable to provide intubated and sedated Physical Exam-General Problems Physical Exam Vital Signs Vital Signs - First Documented 03/17/21 03/17/21 00:00 01:33 Temp 36.9 Pulse 70 Resp 18 B/P (MAP) 101/61 Pulse Ox 96 O2 Delivery Mechanical Ventilator O2 Flow Rate 40.00 FiO2 40 Capillary Refill : Less Than 3 Seconds General Appearance: obese, other (Intubated and sedated) HEENT: PERRL/EOMI Neck: other (Anterior scar from previous tracheostomy, no JVD visualized) Respiratory: other (Equal chest rise, intubated) Cardiovascular: regular rate, rhythm, no JVD Gastrointestinal: soft Rectal: deferred Extremities: swelling Neurologic/Psychiatric: No alert, No oriented x 3; other (Intubated and sedated) Skin: normal color, warm/dry Lymphatic: no adenopathy Data Review Labs Laboratory Tests 03/23/21 00:20: Glucometer 163H 03/23/21 04:10: White Blood Count 11.3H, Red Blood Count 5.02, Hemoglobin 15.1, Hematocrit 49, Mean Corpuscular Volume 98, Mean Corpuscular Hemoglobin 30, Mean Corpuscular Hemoglobin Concent 31L, Red Cell Distribution Width 13.4, Platelet Count 183, Mean Platelet Volume 11.4, Immature Granulocyte % (Auto) 0, Neutrophils (%) (Auto) 68, Lymphocytes (%) (Auto) 21, Monocytes (%) (Auto) 9, Eosinophils (%) (Auto) 1, Basophils (%) (Auto) 1, Neutrophils # (Auto) 7.7, Lymphocytes # (Auto) 2.4, Monocytes # (Auto) 1.0, Eosinophils # (Auto) 0.1, Basophils # (Auto) 0.1, Immature Granulocyte # (Auto) 0.1, Sodium Level 142, Potassium Level 3.9, Chloride Level 110H, Carbon Dioxide Level 22, Anion Gap 10, Blood Urea Nitrogen 32H, Creatinine 0.77, Estimat Glomerular Filtration Rate 110, BUN/Creatinine Ratio 42, Glucose Level 150H, Calcium Level 8.3L, Corrected Calcium 9.1, Phosphorus Level 3.1, Magnesium Level 2.3, Total Bilirubin 0.5, Aspartate Amino Transf (AST/SGOT) 112H, Alanine Aminotransferase (ALT/SGPT) 261H, Alkaline Phosphatase 53, Total Protein 6.4, Albumin 3.0L 03/23/21 04:15: Blood Gas Puncture Site LEFT RADIAL, Blood Gas Patient Temperature 39.0, Arterial Blood pH 7.39, Arterial Blood Partial Pressure CO2 45, Arterial Blood Partial Pressure O2 67L, Arterial Blood HCO3 26, Arterial Blood Total CO2 27.2, Arterial Blood Oxygen Saturation 90L, Arterial Blood Base Excess 1.8, Ignacio Test YES-POS, Blood Gas Ventilator Setting YES, Blood Gas Inspired Oxygen 40% 03/23/21 09:05: Vancomycin Level Trough 17.9 03/23/21 11:58: Glucometer 134H 03/23/21 18:26: Glucometer 132H Microbiology 03/22/21 Catheter Tip Culture - Preliminary, Resulted No growth 03/10/21 Gram Stain - Final, Complete 03/10/21 Sputum Culture - Final, Complete Usual upper respiratory erick Staphylococcus aureus 03/09/21 Urine Culture - Final, Complete NO GROWTH Assessment/Plan Assessment/Plan Assessment/Plan Acute respiratory failure Covid positive Non-ST elevated NH History of tracheostomy Morbid obesity Fever Patient 50-year-old male with acute respiratory failure requiring intubation and sedated. He has a difficult airway and also has history of tracheostomy. I been asked to place a tracheostomy. This is a difficult airway and would be a difficult procedure with high risk for losing airway. I discussed with Dr. Vo and also I called patient's family CANDY and discussed with her the situation of having the tracheostomy performed. She does understand that it would be high risk. She also states that they are discussing moving forward with comfort care as a possibility. I did discuss risk and benefits of having tracheostomy placed. Would first do a bronchoscopy if this was going to be performed and if did not appear able to be safely performed would not proceed if we are going to proceed in this fashion. Patient family is going to further discuss and I will follow along and be available if they have any further questions. CHECO FLOWERS DO Mar 23, 2021 20:36
[2021-03-23] MEDS: ROSUVASTATIN 20 MG (CRESTOR) TABLET PO SCH (21:01)
[2021-03-23 22:00] VITALS: BP 115/74
--- NOTE | 2021-03-23 22:39 | Progress Note ---
Subjective Subjective/Events-last exam Patient intubated and sedated Review of Systems Unable to obtain, Intubated and Sedated Focused Exam Time of Focused Exam: 21:25 Objective Exam Last Set of Vital Signs Vital Signs Date Time Temp Pulse Resp B/P (MAP) Pulse Ox O2 Delivery O2 Flow Rate FiO2 03/23/21 22:00 63 22 96 40 03/23/21 20:59 124/77 03/23/21 20:00 38.5 03/23/21 20:00 Mechanical Ventilator 03/23/21 18:00 40.00 Capillary Refill : Less Than 3 Seconds I&O Intake and Output 03/23/21 00:00 Intake Total 2045 ml Output Total 2695 ml Balance -650 ml Tube Feeding 1080 ml Other 965 ml Output Urine Total 2695 ml General: Other (Intubated and sedated) Lungs: Other (course breath sounds with end exp wheezing) Heart: Regular Rate, No Murmurs Abdomen: Normal Bowel Sounds, Soft Extremities: Other (2+ pitting edema equal bilaterally) Results/Procedures Lab Laboratory Tests 03/23/21 00:20: Glucometer 163H 03/23/21 04:10: White Blood Count 11.3H, Red Blood Count 5.02, Hemoglobin 15.1, Hematocrit 49, Mean Corpuscular Volume 98, Mean Corpuscular Hemoglobin 30, Mean Corpuscular Hemoglobin Concent 31L, Red Cell Distribution Width 13.4, Platelet Count 183, Mean Platelet Volume 11.4, Immature Granulocyte % (Auto) 0, Neutrophils (%) (Auto) 68, Lymphocytes (%) (Auto) 21, Monocytes (%) (Auto) 9, Eosinophils (%) (Auto) 1, Basophils (%) (Auto) 1, Neutrophils # (Auto) 7.7, Lymphocytes # (Auto) 2.4, Monocytes # (Auto) 1.0, Eosinophils # (Auto) 0.1, Basophils # (Auto) 0.1, Immature Granulocyte # (Auto) 0.1, Sodium Level 142, Potassium Level 3.9, Chloride Level 110H, Carbon Dioxide Level 22, Anion Gap 10, Blood Urea Nitrogen 32H, Creatinine 0.77, Estimat Glomerular Filtration Rate 110, BUN/Creatinine Ratio 42, Glucose Level 150H, Calcium Level 8.3L, Corrected Calcium 9.1, Phosphorus Level 3.1, Magnesium Level 2.3, Total Bilirubin 0.5, Aspartate Amino Transf (AST/SGOT) 112H, Alanine Aminotransferase (ALT/SGPT) 261H, Alkaline Phosphatase 53, Total Protein 6.4, Albumin 3.0L 03/23/21 04:15: Blood Gas Puncture Site LEFT RADIAL, Blood Gas Patient Temperature 39.0, Arterial Blood pH 7.39, Arterial Blood Partial Pressure CO2 45, Arterial Blood Partial Pressure O2 67L, Arterial Blood HCO3 26, Arterial Blood Total CO2 27.2, Arterial Blood Oxygen Saturation 90L, Arterial Blood Base Excess 1.8, Ignacio Test YES-POS, Blood Gas Ventilator Setting YES, Blood Gas Inspired Oxygen 40% 03/23/21 09:05: Vancomycin Level Trough 17.9 03/23/21 11:58: Glucometer 134H 03/23/21 18:26: Glucometer 132H Microbiology 03/22/21 Catheter Tip Culture - Preliminary, Resulted No growth 03/10/21 Gram Stain - Final, Complete 03/10/21 Sputum Culture - Final, Complete Usual upper respiratory erick Staphylococcus aureus 03/09/21 Urine Culture - Final, Complete NO GROWTH Assessment/Plan Assessment/Plan (1) Acute on chronic respiratory failure with hypoxia and hypercapnia Status: Acute Assessment & Plan: Ventilator dependent, appreciate [facility] ICU recommendations. Suspect secondary to COVID19 infection with superimposed CHF and pulmonary edema. 03/22: Continues to be ventilator dependent, eICU managing 03/23: Vent dependent, Discussed trach/PEG with Dr Francois, Yeast in blood culture, anti fungals added (2) Facial cellulitis Status: Acute Assessment & Plan: Question of facial cellulitis vs angioedema prior to admission. Completed 5 days of Zosyn, remains on vancomycin. Will resume Zosyn due to growth of aerococcus in blood x 2 and stop vancomycin given negative MRSA swab. 03/19/21- continue zosyn, held lisinopril due to facial swelling/possible angioedema, is on dexamethasone. 03/22: Continues to have fevers, will pull central line and plan to place PICC line, will culture tip (3) COVID-19 Status: Acute Assessment & Plan: Unknown onset of symptoms. On dexamethasone day 10. (4) Morbid obesity Status: Chronic (5) Primary hypertension Status: Chronic Assessment & Plan: Initially hypotensive, blood pressure trending back up, appreciate Cardiology management. (6) Non-ST elevation myocardial infarction (NSTEMI), initial care episode Status: Acute Assessment & Plan: Elevated troponin on admit, unable to cath due to weight limit of table, on therapeutic enoxaparin x 5 days, changed back to prophylactic dose per Cardiology, started on ticagrelor. 03/22: Troponin trending down, Maximize conservative management due to weight limits (7) Acute HFrEF (heart failure with reduced ejection fraction) Status: Acute Assessment & Plan: Appreciate Cardiology recommendations, receiving IV lasix, echo with somewhat reduced EF but difficult to evaluate well due to body habitus. (8) DVT prophylaxis Status: Acute Assessment & Plan: Enoxaparin (9) Discharge planning issues Status: Acute Assessment & Plan: 03/15- Called Guerda to update on current status and discuss plans, no answer, voicemail not set up. 03/16- Called Guerda (sister) and updated on status, she denied further questions at this time. 03/17- spoke with Guerda around 0830, discussed no significant changes from yesterday, awaiting [facility] ICU physician plan later this morning. 03/18- Called to update at 1438, no answer. 03/19- Spoke to Guerda and updated 03/23: Called and updated [facility]er[facility], no significant change, they are going to discuss Trach/PEG BOBBY DIETZ MD Mar 23, 2021 22:39
[2021-03-24 01:16] VITALS: BP 137/80
[2021-03-24] MEDS: RT-ALBUTEROL HFA 8.5 GM INHALER IH SCH ×5 (01:16→22:05)
[2021-03-24] MEDS: PIPERACILLIN SODIUM/TAZOBACTAM 4.5 GM in NS (IVPB) 100 ML IV SCH ×3 (01:37→16:02)
[2021-03-24] MEDS: VANCOMYCIN 1250 MG/NS 250 ML IVPB IV SCH ×6 (01:38→18:21)
[2021-03-24] MEDS: MIDAZOLAM DRIP PRE-MIX 100 ML IV SCH ×3 (01:44→20:05)
[2021-03-24 03:26] LABS: BASOPHILS # (AUTO) 0.1 10^3/uL (0.0-0.1); BASOPHILS % (AUTO) 1 % (0-10); EOSINOPHILS # (AUTO) 0.2 10^3/uL (0.0-0.3); EOSINOPHILS % (AUTO) 2 % (0-10); HEMATOCRIT 49 % (40-54); LYMPHOCYTES # (AUTO) 1.6 10^3/uL (1.0-4.0); LYMPHOCYTES % (AUTO) 11 % (12-44); MEAN CORPUSCULAR HEMOGLOBIN 30 pg (25-34); MEAN CORPUSCULAR HGB CONC 31 g/dL (32-36); MEAN CORPUSCULAR VOLUME 98 fL (80-99); MEAN PLATELET VOLUME 11.4 fL (9.0-12.2); MONOCYTES % (AUTO) 7 % (0-12); NEUTROPHILS # (AUTO) 11.7 10^3/uL (1.8-7.8); NEUTROPHILS % (AUTO) 80 % (42-75); PLATELET COUNT 175 10^3/uL (130-400); WHITE BLOOD COUNT 14.6 10^3/uL (4.3-11.0)
[2021-03-24 03:27] LABS: ABG BASE EXCESS -1.5 MMOL/L (-2.5-2.5); ABG OXYGEN SATURATION 90 % (94-100); ABG PCO2 46 MMHG (35-45); ABG PO2 68 MMHG (79-93); ABG TCO2 24.5 MMOL/L (21.0-31.0)
[2021-03-24 03:28] LABS: ALLENS TEST YES-POS
[2021-03-24 03:29] LABS: INSPIRED O2 40%; PATIENT TEMP 38.6; VENTILATOR YES
[2021-03-24 03:30] LABS: ABG PH 7.34 (7.37-7.43)
[2021-03-24 03:36] LABS: ALBUMIN 2.9 GM/DL (3.2-4.5); POTASSIUM 3.7 MMOL/L (3.6-5.0)
[2021-03-24] MEDS: CATHETER FLUSH 10 ML SYR IV SCH ×3 (03:36→22:22)
[2021-03-24] MEDS: POTASSIUM CL 10MEQ/50ML IVPB 50 ML IV SCH (03:36)
[2021-03-24] MEDS: NOREPINEPHRINE 8 MG/250 ML 250 ML IV SCH ×3 (03:36→20:34)
[2021-03-24 03:39] LABS: TOTAL PROTEIN 6.2 GM/DL (6.4-8.2)
[2021-03-24 03:41] LABS: BILIRUBIN,TOTAL 0.5 MG/DL (0.1-1.0)
[2021-03-24 03:42] LABS: CREATININE SERUM 0.69 MG/DL (0.60-1.30); PHOSPHORUS 3.3 MG/DL (2.3-4.7)
[2021-03-24 03:45] LABS: MAGNESIUM 2.1 MG/DL (1.6-2.4)
[2021-03-24 03:57] LABS: BAND NEUTROPHILS 2 %; BASOPHILS % (MANUAL) 0 %; EOSINOPHILS % (MANUAL) 1 %; LYMPHOCYTES % (MANUAL) 5 %; MONOCYTES % (MANUAL) 2 %; NEUTROPHILS % (MANUAL) 85 %; RBC MORPH NORMAL; REACTIVE LYMPHOCYTES 5 %
[2021-03-24] MEDS: inSUlin ASPART (NovoLOG) 1 UNIT/0.01 ML (CHARGE PER UNIT) SC SCH ×3 (04:00→18:20)
[2021-03-24] MEDS: MAGNESIUM 1 GM/100 ML IVPB 100 ML IV SCH (04:00)
[2021-03-24] MEDS: KCL 20 MEQ TAB (K-DUR) PO SCH (04:00)
[2021-03-24] MEDS: hydrALAZINE (APRESOLINE) 25 MG TAB PO SCH ×4 (05:53→22:22)
[2021-03-24] MEDS: PROPOFOL DRIP (ICU) 100 ML IV SCH ×3 (05:53→16:03)
[2021-03-24] MEDS: DexMEDEtomidine 250 ML DRIP 250 ML IV SCH ×6 (05:58→18:21)
[2021-03-24 06:46] VITALS: BP 144/79
[2021-03-24] MEDS ORDERED: POTASSIUM CL 10MEQ/50ML IVPB 50 ML IV SCH (07:00)
--- NOTE | 2021-03-24 07:37 | Progress Note - Surgery ---
MONIQUE ARNETT 03/24/21 0737: Subjective Date Seen by a Provider: Mar 24, 2021 Time Seen by a Provider: 07:20 Subjective/Events-last exam Consulted for potential tracheostomy placement. Pt unable to communicate due to being intubated and sedated. Spoke with his nurse. Pt's bp was more controlled last night, held some of his bp meds to avoid hypotension. In contact with family about comfort care options. Review of Systems Unable to obtain ROS, intubated and sedated Focused Exam Time of Focused Exam: 21:25 Respiratory: Other (on ventilator) Cardiovascular: Bradycardia Skin: other (facial cellulitis) Objective Exam Vital Signs Date Time Temp Pulse Resp B/P (MAP) Pulse Ox O2 Delivery O2 Flow Rate FiO2 03/24/21 06:46 56 23 99 40 03/24/21 06:00 38.1 56 24 134/78 99 Mechanical Ventilator 40.00 03/24/21 05:59 58 138/79 03/24/21 05:58 58 138/79 03/24/21 05:53 58 138/79 03/24/21 05:53 58 138/79 03/24/21 05:00 38.4 57 16 120/68 97 Mechanical Ventilator 40.00 03/24/21 04:00 97 Mechanical Ventilator 40 03/24/21 04:00 40 03/24/21 04:00 38.5 58 26 138/79 97 Mechanical Ventilator 40.00 03/24/21 03:00 38.7 60 20 149/90 96 Mechanical Ventilator 40.00 03/24/21 02:00 38.8 62 24 141/81 96 Mechanical Ventilator 40.00 03/24/21 01:44 64 26 137/80 03/24/21 01:16 64 26 96 40 03/24/21 01:00 38.8 64 26 138/81 95 Mechanical Ventilator 40.00 03/24/21 01:00 64 03/24/21 00:00 40 03/24/21 00:00 38.7 64 25 128/79 95 Mechanical Ventilator 40.00 03/24/21 00:00 63 115/74 03/24/21 00:00 63 115/74 03/23/21 23:59 97 Mechanical Ventilator 40 03/23/21 23:00 38.6 62 25 126/76 94 Mechanical Ventilator 40.00 03/23/21 22:00 38.5 66 27 122/71 96 Mechanical Ventilator 40.00 03/23/21 22:00 63 22 96 40 03/23/21 21:00 38.6 61 19 125/76 97 Mechanical Ventilator 40.00 03/23/21 20:59 62 124/77 03/23/21 20:59 62 124/77 03/23/21 20:00 38.5 57 27 129/81 96 Mechanical Ventilator 40.00 03/23/21 20:00 40 03/23/21 20:00 38.5 03/23/21 20:00 96 Mechanical Ventilator 40 03/23/21 19:00 60 03/23/21 19:00 38.6 56 36 145/91 97 Mechanical Ventilator 40.00 03/23/21 18:29 62 19 95 40 03/23/21 18:00 38.9 60 21 123/78 95 Mechanical Ventilator 40.00 03/23/21 17:55 61 132/84 03/23/21 17:55 61 132/84 03/23/21 17:00 39.0 61 25 132/84 97 Mechanical Ventilator 40.00 03/23/21 16:58 39.0 03/23/21 16:22 39.1 03/23/21 16:10 98 Mechanical Ventilator 40 03/23/21 16:00 40 03/23/21 16:00 39.1 03/23/21 16:00 39.1 61 19 135/82 94 Mechanical Ventilator 40.00 03/23/21 15:00 39.0 59 24 121/71 94 Mechanical Ventilator 40.00 03/23/21 14:48 61 22 93 40 03/23/21 14:00 38.9 61 24 120/78 93 Mechanical Ventilator 40.00 03/23/21 13:00 38.7 63 22 128/80 94 Mechanical Ventilator 40.00 03/23/21 12:41 80 03/23/21 12:24 62 129/71 03/23/21 12:24 62 129/71 03/23/21 12:21 62 129/71 03/23/21 12:20 62 129/71 03/23/21 12:20 62 129/71 03/23/21 12:20 62 129/71 03/23/21 12:15 98 Mechanical Ventilator 40 03/23/21 12:00 38.7 63 23 123/67 94 Mechanical Ventilator 40.00 03/23/21 12:00 40 03/23/21 11:22 62 22 129/71 03/23/21 11:00 38.6 61 22 131/72 94 Mechanical Ventilator 40.00 03/23/21 10:36 57 22 95 40 03/23/21 10:00 38.5 57 20 120/64 95 Mechanical Ventilator 40.00 03/23/21 09:40 37.8 03/23/21 09:08 38.5 03/23/21 09:00 38.5 55 18 159/88 95 Mechanical Ventilator 40.00 03/23/21 08:15 53 19 95 40 03/23/21 08:00 96 Mechanical Ventilator 40 03/23/21 08:00 38.6 56 18 155/85 95 Mechanical Ventilator 40.00 03/23/21 08:00 40 03/23/21 07:43 38.6 I & O 03/24/21 06:59 Intake Total 3190 ml Output Total 2625 ml Balance 565 ml General Appearance: No Apparent Distress, Chronically ill, Obese Respiratory: No Respiratory Distress, Other (On ventilator) Cardiovascular: No Murmur, Bradycardia Neurologic/Psychiatric: Other (Sedated) Skin: Other (angioedema of lips; facial cellulitis) Results Lab Laboratory Tests 03/23/21 09:05: Vancomycin Level Trough 17.9 03/23/21 11:58: Glucometer 134H 03/23/21 18:26: Glucometer 132H 03/23/21 23:59: Glucometer 124H 03/24/21 03:20: White Blood Count 14.6H, Red Blood Count 4.95, Hemoglobin 15.0, Hematocrit 49, Mean Corpuscular Volume 98, Mean Corpuscular Hemoglobin 30, Mean Corpuscular Hemoglobin Concent 31L, Red Cell Distribution Width 13.4, Platelet Count 175, Mean Platelet Volume 11.4, Immature Granulocyte % (Auto) 1, Neutrophils (%) (Auto) 80H, Lymphocytes (%) (Auto) 11L, Monocytes (%) (Auto) 7, Eosinophils (%) (Auto) 2, Basophils (%) (Auto) 1, Neutrophils # (Auto) 11.7H, Lymphocytes # (Auto) 1.6, Monocytes # (Auto) 1.0, Eosinophils # (Auto) 0.2, Basophils # (Auto) 0.1, Immature Granulocyte # (Auto) 0.1, Neutrophils % (Manual) 85, Lymphocytes % (Manual) 5, Monocytes % (Manual) 2, Eosinophils % (Manual) 1, Basophils % (Manual) 0, Band Neutrophils 2, Reactive Lymphocytes 5, Blood Morphology Comment NORMAL, Blood Gas Puncture Site L RAD, Blood Gas Patient Temperature 38.6, Arterial Blood pH 7.34*L, Arterial Blood Partial Pressure CO2 46H, Arterial Blood Partial Pressure O2 68L, Arterial Blood HCO3 23, Arterial Blood Total CO2 24.5, Arterial Blood Oxygen Saturation 90L, Arterial Blood Base Excess -1.5, Ignacio Test YES-POS, Blood Gas Ventilator Setting YES, Blood Gas Inspired Oxygen 40%, Sodium Level 143, Potassium Level 3.7, Chloride Level 112H, Carbon Dioxide Level 19L, Anion Gap 12, Blood Urea Nitrogen 29H, Creatinine 0.69, Estimat Glomerular Filtration Rate 114, BUN/Creatinine Ratio 42, Glucose Level 156H, Calcium Level 8.0L, Corrected Calcium 8.9, Phosphorus Level 3.3, Magnesium Level 2.1, Total Bilirubin 0.5, Aspartate Amino Transf (AST/SGOT) 60H, Alanine A minotransferase (ALT/SGPT) 219H, Alkaline Phosphatase 68, Total Protein 6.2L, Albumin 2.9L Microbiology 03/22/21 Catheter Tip Culture - Preliminary, Resulted No growth 03/10/21 Gram Stain - Final, Complete 03/10/21 Sputum Culture - Final, Complete Usual upper respiratory erick Staphylococcus aureus 03/09/21 Urine Culture - Final, Complete NO GROWTH Assessment/Plan Assessment/Plan Assessment/Plan Acute respiratory failure Covid positive Non-ST elevated DC History of tracheostomy Morbid obesity Fever Family is discussing comfort care options If they decide to proceed with tracheostomy, would first do a bronchoscopy to determine safety of procedure CHECO FRANCOIS DO 03/24/212041: Subjective Subjective/Events-last exam Patient remains intubated and sedated. Unable to provide any information Objective Exam General Appearance: No Apparent Distress, Obese, Other (Intubated and sedated) HEENT: Normal ENT Inspection Neck: Normal Inspection Respiratory: No Respiratory Distress, Other (On ventilator) Cardiovascular: No JVD, Bradycardia Extremity: Swelling Neurologic/Psychiatric: No Alert, No Oriented x3; Other (Sedated) Assessment/Plan Assessment/Plan Assessment/Plan Acute respiratory failure Covid positive Non-ST elevated DC History of tracheostomy Morbid obesity Fever Family is discussing comfort care options I discussed with them yesterday evening about high risk due to previous tracheostomy and due to difficult airway. If they decide to proceed with tracheostomy, would first do a bronchoscopy to determine safety of procedure Patient family is unsure if they want to proceed and are discussing/leaning more towards comfort care measures. Awaiting family decision Supervisory-Addendum Brief Verification & Attestation Participated in pt care: history, MDM, physical Personally performed: exam, history, MDM, supervision of care Care discussed with: Medical Student Procedures: n/a Results interpretation: Verified all documentation Verification and Attestation of Medical Student E/M Service A medical student performed and documented this service in my presence. I reviewed and verified all information documented by the medical student and made modifications to such information, when appropriate. I personally performed the physical exam and medical decision making. Checo Francois, Mar 24, 2021,20:41 MONIQUE ARNETT Mar 24, 2021 07:37 CHECO FRANCOIS DO Mar 24, 2021 20:42
[2021-03-24] MEDS: FAMOTIDINE 20MG/2ML IV (PEPCID) IVP SCH (08:19)
[2021-03-24] MEDS: FUROSEMIDE 40 MG/4 ML INJ (LASIX) IVP SCH (08:19)
[2021-03-24] MEDS: ASPIRIN 81 MG CHEW (CHILDREN'S ASA) PO SCH (08:19)
[2021-03-24] MEDS: PANTOPRAZOLE 40 MG (PROTONIX) VIAL IV SCH (08:19)
[2021-03-24] MEDS: ISOSORBIDE DINITRATE 10 MG (ISORDIL) TABLET PO SCH ×3 (08:19→16:02)
[2021-03-24] MEDS: TICAGRELOR 90 MG TABLET (BRILINTA) PO SCH ×2 (08:20→20:04)
[2021-03-24] MEDS: ENOXAPARIN 60 MG/0.6 ML (LOVENOX) SYR SQ SCH ×2 (08:20→20:04)
[2021-03-24] MEDS: MICONAZOLE 2% POWDER (DESENEX AF) 90 GM TOP SCH ×4 (08:21→21:00)
--- NOTE | 2021-03-24 08:38 | Cardiology Progress Note ---
Progress Note-Cardiology Events since last exam Date Seen by Provider: Mar 24, 2021 Time Seen by Provider: 08:33 Events since last exam I am seeing him due to probable non-ST elevation myocardial infarction in the setting of Covid infection. He also has superimposed mild cardiomyopathy with some probable acute systolic heart failure that has improved. Today is day 15 on the ventilator. His family members have been told about the need for tracheostomy in the near future if they decide to continue treatment. Comfort care was also discussed as an option. I spoke to the patient's nurse and the family will be planning on a family meeting to discuss ongoing care for the patient. On 03/23 he had some low blood pressures and his antihypertensive medication was held. He continues to become agitated during sedation holidays and then developed tachycardia and tachypnea and needs to be placed back on full sedation. Weaning from the ventilator has been extremely difficult because of this. Almost no progress has been made with weaning from the ventilator. I viewed the patient from his doorway due to his COVID status. I did speak with his nurse of today. Certain portions of this document may have been dictated utilizing voice recognition technology. Inherent to this technology, typographical and grammatical errors may exist. As much as I am diligent to identify and correct these mistakes, some errors may remain in the document. Vitals Last set of Vitals Signs Vital Signs 03/24/21 03/24/21 03/24/21 10:15 11:00 12:19 Temp 37.6 Pulse 56 Resp 22 Pulse Ox 97 O2 Delivery Mechanical Ventilator O2 Flow Rate 40.00 FiO2 40 Labs Labs Laboratory Tests 03/24/21 03:20 Exam Vital Signs Vital Signs Date Time Temp Pulse Resp B/P (MAP) Pulse Ox O2 Delivery O2 Flow Rate FiO2 03/24/21 12:19 56 03/24/21 12:08 119/61 03/24/21 11:00 37.6 22 97 Mechanical Ventilator 40.00 03/24/21 10:15 40 Physical Exam Due to the patient's COVID status, I viewed the patient from the doorway. General: The patient is intubated and sedated. He is morbidly obese. HENT: Normocephalic. Atraumatic. Respiratory: Symmetrical expansion bilaterally. Skin: There is no pallor. Neurologic: Intubated and sedated. Psychiatric: Not obtainable due to clinical status. Labs Laboratory Tests Test 03/23/21 18:26 03/23/21 23:59 03/24/21 03:20 Range/Units Glucometer 132 H 124 H 70-110 MG/DL White Blood Count 14.6 H 4.3-11.0 10^3/uL Red Blood Count 4.95 4.30-5.52 10^6/uL Hemoglobin 15.0 13.3-17.7 g/dL Hematocrit 49 40-54 % Mean Corpuscular Volume 98 80-99 fL Mean Corpuscular Hemoglobin 30 25-34 pg Mean Corpuscular Hemoglobin Concent 31 L 32-36 g/dL Red Cell Distribution Width 13.4 10.0-14.5 % Platelet Count 175 130-400 10^3/uL Mean Platelet Volume 11.4 9.0-12.2 fL Immature Granulocyte % (Auto) 1 % Neutrophils (%) (Auto) 80 H 42-75 % Lymphocytes (%) (Auto) 11 L 12-44 % Monocytes (%) (Auto) 7 0-12 % Eosinophils (%) (Auto) 2 0-10 % Basophils (%) (Auto) 1 0-10 % Neutrophils # (Auto) 11.7 H 1.8-7.8 10^3/uL Lymphocytes # (Auto) 1.6 1.0-4.0 10^3/uL Monocytes # (Auto) 1.0 0.0-1.0 10^3/uL Eosinophils # (Auto) 0.2 0.0-0.3 10^3/uL Basophils # (Auto) 0.1 0.0-0.1 10^3/uL Immature Granulocyte # (Auto) 0.1 0.0-0.1 10^3/uL Neutrophils % (Manual) 85 % Lymphocytes % (Manual) 5 % Monocytes % (Manual) 2 % Eosinophils % (Manual) 1 % Basophils % (Manual) 0 % Band Neutrophils 2 % Reactive Lymphocytes 5 % Blood Morphology Comment NORMAL Blood Gas Puncture Site L RAD Blood Gas Patient Temperature 38.6 Arterial Blood pH 7.34 *L 7.37-7.43 Arterial Blood Partial Pressure CO2 46 H 35-45 MMHG Arterial Blood Partial Pressure O2 68 L 79-93 MMHG Arterial Blood HCO3 23 23-27 MMOL/L Arterial Blood Total CO2 24.5 21.0-31.0 MMOL/L Arterial Blood Oxygen Saturation 90 L 94-100 % Arterial Blood Base Excess -1.5 -2.5-2.5 MMOL/L Ignacio Test YES-POS Blood Gas Ventilator Setting YES Blood Gas Inspired Oxygen 40% Sodium Level 143 135-145 MMOL/L Potassium Level 3.7 3.6-5.0 MMOL/L Chloride Level 112 H 98-107 MMOL/L Carbon Dioxide Level 19 L 21-32 MMOL/L Anion Gap 12 5-14 MMOL/L Blood Urea Nitrogen 29 H 7-18 MG/DL Creatinine 0.69 0.60-1.30 MG/DL Estimat Glomerular Filtration Rate 114 BUN/Creatinine Ratio 42 Glucose Level 156 H 70-105 MG/DL Calcium Level 8.0 L 8.5-10.1 MG/DL Corrected Calcium 8.9 8.5-10.1 MG/DL Phosphorus Level 3.3 2.3-4.7 MG/DL Magnesium Level 2.1 1.6-2.4 MG/DL Total Bilirubin 0.5 0.1-1.0 MG/DL Aspartate Amino Transf (AST/SGOT) 60 H 5-34 U/L Alanine Aminotransferase (ALT/SGPT) 219 H 0-55 U/L Alkaline Phosphatase 68 40-136 U/L Total Protein 6.2 L 6.4-8.2 GM/DL Albumin 2.9 L 3.2-4.5 GM/DL Diagnosis/Problems Diagnosis/Problems (1) Non-ST elevation myocardial infarction (NSTEMI), initial care episode Status: Acute Assessment & Plan: He appears to have suffered a non-ST elevation myocardial infarction. There was no evidence of ST elevation on his electrocardiograms. Unfortunately, due to his morbid obesity, his weight is above the limit of our cardiac catheterization table. As such, the best we can do for this patient at this point in time is medical management for the myocardial infarction. He received therapeutic dosing of enoxaparin for 5 days and I changed this over to prophylactic dosing for deep venous thrombosis on 03/15. We will continue aspirin, ticagrelor, beta-cameron and statin medication. His clinical course will likely be complicated due to the superimposed Covid infection and his morbid obesity. I did obtain a follow-up troponin level on 03/22 and this was still trending downwards which would be suggestive that he does not have any ongoing myocardial injury either due to coronary artery disease or potentially myocarditis caused by Covid infection. This is reassuring. I will lower the dose of carvedilol due to low blood pressures on 03/23. (2) Cardiomyopathy Status: Acute Assessment & Plan: His echocardiogram from this admission showed possible mild left ventricular systolic dysfunction but was a very technically difficult study. We will continue guideline directed medical therapy as tolerated by his blood pressure and renal function. He is on carvedilol, hydralazine, and long- acting nitrates. YUDI inhibitor was discontinued due to swelling of his lips with possible concern for angioedema. For this reason, he is not a good candidate for ARB. He was seen by otolaryngology who does not believe he had angioedema but I would rather be conservative at this point in time and not take a risk by restarting YUDI inhibitor. (3) Acute HFrEF (heart failure with reduced ejection fraction) Status: Acute Assessment & Plan: His chest x-rays had showed evidence of pulmonary congestion but was improved on 03/15 and again 03/18. I started him on IV furosemide twice daily on 03/11 and this was reduced to once daily on 03/18. We will need to monitor his renal function closely. We will continue the present combination of guideline directed medical therapy with limitations as noted above. (4) Primary hypertension Status: Chronic Assessment & Plan: His blood pressures trended down on 03/23. I will lower carvedilol and hydralazine doses and continue to monitor. (5) Acute on chronic respiratory failure with hypoxia and hypercapnia Status: Acute Assessment & Plan: As of 03/24, this is day 15 of the intubation. We need to continue thinking about tracheostomy versus comfort care. The patient was seen by general surgery who feels that tracheostomy would be high risk and would plan on a bronchoscopy first for further evaluation to determine whether or not this procedure would be safe in our facility. He will await the decision from the family before deciding whether or not to proceed any further in regards to bronchoscopy and tracheostomy. (6) Noncompliance with medication regimen Assessment & Plan: He has a reported history of noncompliance with his medications. This is probably contributing to his current clinical situation. (7) Morbid obesity Status: Chronic Assessment & Plan: Unfortunately, due to his morbid obesity, he is above the weight limit for our cardiac catheterization table as outlined above. ROB CANTOR JR, MD Mar 24, 2021 08:38
[2021-03-24] MEDS: ANIDULAFUNGIN INJECTION 100 MG in NS (IVPB) 100 ML IV SCH (08:39)
--- NOTE | 2021-03-24 08:46 | Tele-ICU Progress Note ---
Subjective Date Seen by a Provider: Mar 24, 2021 Time Seen by a Provider: 08:45 Subjective/Events-last exam He is a super morbid obese male who has a COVID19 pneumonia currently intubated and put on mechanical ventilation. He is being considered for a tracheostomy. Apparently he has a tracheostomy done in the past and this is going to be a redo which is a challenging situation. General surgery consultation requested but the general surgeon felt it would be a high risk procedure. Discussed with the patient's family and they were thinking about the comfort care. Currently he is not ready for weaning. He is currently sedated with the Versed, Precedex and propofol. Is having low-grade fever on and off. Apparently he is not is a sister Guerda is a power of erisa attorney Sepsis Event Evaluation Height, Weight, BMI Height: 6'3.00" Weight: 401lbs. 0.0oz. 181.600871ge; 60.27 BMI Method:Actual Focused Exam Time of Focused Exam: 21:25 Exam Exam Patient acknowledged, consented, and participated in this virtual visit which was conducted using real time audio/video Vital Signs Date Time Temp Pulse Resp B/P (MAP) Pulse Ox O2 Delivery O2 Flow Rate FiO2 03/24/21 08:00 37.7 54 22 136/77 99 Mechanical Ventilator 40.00 03/24/21 07:00 56 03/24/21 07:00 37.9 56 19 148/79 99 Mechanical Ventilator 40.00 03/24/21 06:46 56 23 99 40 03/24/21 06:00 38.1 56 24 134/78 99 Mechanical Ventilator 40.00 03/24/21 05:59 58 138/79 03/24/21 05:58 58 138/79 03/24/21 05:53 58 138/79 03/24/21 05:53 58 138/79 03/24/21 05:00 38.4 57 16 120/68 97 Mechanical Ventilator 40.00 03/24/21 04:00 97 Mechanical Ventilator 40 03/24/21 04:00 40 03/24/21 04:00 38.5 58 26 138/79 97 Mechanical Ventilator 40.00 03/24/21 03:00 38.7 60 20 149/90 96 Mechanical Ventilator 40.00 03/24/21 02:00 38.8 62 24 141/81 96 Mechanical Ventilator 40.00 03/24/21 01:44 64 26 137/80 03/24/21 01:16 64 26 96 40 03/24/21 01:00 38.8 64 26 138/81 95 Mechanical Ventilator 40.00 03/24/21 01:00 64 03/24/21 00:00 40 03/24/21 00:00 38.7 64 25 128/79 95 Mechanical Ventilator 40.00 03/24/21 00:00 63 115/74 03/24/21 00:00 63 115/74 03/23/21 23:59 97 Mechanical Ventilator 40 03/23/21 23:00 38.6 62 25 126/76 94 Mechanical Ventilator 40.00 03/23/21 22:00 38.5 66 27 122/71 96 Mechanical Ventilator 40.00 03/23/21 22:00 63 22 96 40 03/23/21 21:00 38.6 61 19 125/76 97 Mechanical Ventilator 40.00 03/23/21 20:59 62 124/77 03/23/21 20:59 62 124/77 03/23/21 20:00 38.5 57 27 129/81 96 Mechanical Ventilator 40.00 03/23/21 20:00 40 03/23/21 20:00 38.5 03/23/21 20:00 96 Mechanical Ventilator 40 03/23/21 19:00 60 03/23/21 19:00 38.6 56 36 145/91 97 Mechanical Ventilator 40.00 03/23/21 18:29 62 19 95 40 03/23/21 18:00 38.9 60 21 123/78 95 Mechanical Ventilator 40.00 03/23/21 17:55 61 132/84 03/23/21 17:55 61 132/84 03/23/21 17:00 39.0 61 25 132/84 97 Mechanical Ventilator 40.00 03/23/21 16:58 39.0 03/23/21 16:22 39.1 03/23/21 16:10 98 Mechanical Ventilator 40 03/23/21 16:00 40 03/23/21 16:00 39.1 03/23/21 16:00 39.1 61 19 135/82 94 Mechanical Ventilator 40.00 03/23/21 15:00 39.0 59 24 121/71 94 Mechanical Ventilator 40.00 03/23/21 14:48 61 22 93 40 03/23/21 14:00 38.9 61 24 120/78 93 Mechanical Ventilator 40.00 03/23/21 13:00 38.7 63 22 128/80 94 Mechanical Ventilator 40.00 03/23/21 12:41 80 03/23/21 12:24 62 129/71 03/23/21 12:24 62 129/71 03/23/21 12:21 62 129/71 03/23/21 12:20 62 129/71 03/23/21 12:20 62 129/71 03/23/21 12:20 62 129/71 03/23/21 12:15 98 Mechanical Ventilator 40 03/23/21 12:00 38.7 63 23 123/67 94 Mechanical Ventilator 40.00 03/23/21 12:00 40 03/23/21 11:22 62 22 129/71 03/23/21 11:00 38.6 61 22 131/72 94 Mechanical Ventilator 40.00 03/23/21 10:36 57 22 95 40 03/23/21 10:00 38.5 57 20 120/64 95 Mechanical Ventilator 40.00 03/23/21 09:40 37.8 03/23/21 09:08 38.5 03/23/21 09:00 38.5 55 18 159/88 95 Mechanical Ventilator 40.00 I & O 03/24/21 06:59 Intake Total 3190 ml Output Total 2625 ml Balance 565 ml Height & Weight Height: 6'3.00" Weight: 401lbs. 0.0oz. 181.658167ig; 60.27 BMI Method:Actual General Appearance: No Apparent Distress, Chronically ill HEENT: Other (Facial edema unchanged there is less erythema no induration edema is most prevalent on the lips but not tense) Respiratory: Other (Chest clear anteriorly) Cardiovascular: Regular Rate, Rhythm, No Gallop, No Murmur Capillary Refill: Less Than 3 Seconds Peripheral Pulses: 2+ Radial Pulses (R), 2+ Radial Pulses (L) Gastrointestinal: soft Extremity: Other (3+ symmetrical forced extremity edema extremities are warm no ulceration. No erythema) Skin: Other (angioedema of lips) Other comments PE PER RN Results Lab Laboratory Tests 03/23/21 04:10 03/24/21 03:20 Assessment/Plan Assessment/Plan 1. Acute on chronic hyper And hypoxic respiratory failure secondary to Covidpneumonia with super morbid obesity. Requiring mechanical ventilation. 2. Facial cellulitis acute 3. Covid19 viral multifocal pneumonia 4. Suspected superadded bacterial pneumonia 5. Non-ST segment elevation myocardial infarction 6. History of hypertension 7. History of chronic systolic congestive heart failure. 8. High risk for DVT and PE. Recommendations 1. Continue current mechanical ventilatory support and sedation 2. IV antibiotics per primary care team 3. Tracheostomy evaluation per general surgery 4. Continue dexamethasone per protocol 5. DVT prophylaxis and ulcer prophylaxis. He is well overall very complex medical patient and prognosis is poor. I made a video visit and discussed with the EIGHT ARM OPERATOR. Critical Care: Ventilator Management Time spent with patient (mins): 35 JASON CHASE MD Mar 24, 2021 08:45
[2021-03-24 10:15] VITALS: BP 132/77
[2021-03-24] MEDS: VASOPRESSIN INJECTION 20 UNIT in NS (IVPB) 100 ML IV SCH ×2 (12:08→20:34)
[2021-03-24 14:45] VITALS: BP 122/67
[2021-03-24] MEDS: LACRI-LUBE OPTHALMIC OINT 3.5 GM TUBE OU PRN (16:17)
--- NOTE | 2021-03-24 16:27 | Progress Note ---
Subjective Subjective/Events-last exam Patient intubated and Sedated. Review of Systems Unable to obtain, Intubated and Sedated Focused Exam Time of Focused Exam: 21:25 Objective Exam Last Set of Vital Signs Vital Signs Date Time Temp Pulse Resp B/P (MAP) Pulse Ox O2 Delivery O2 Flow Rate FiO2 03/24/21 16:04 55 19 144/80 03/24/21 15:00 37.3 96 Mechanical Ventilator 40.00 03/24/21 14:45 40 Capillary Refill : Less Than 3 Seconds I&O Intake and Output 03/24/21 00:00 Intake Total 3310 ml Output Total 2625 ml Balance 685 ml IV Total 250 ml Tube Feeding 1440 ml Other 1620 ml Output Urine Total 2625 ml General: Other (Intubated and Sedated) Lungs: Other (Diminished breath sounds, diffuse crackles) Heart: Regular Rate Abdomen: Other (mild distention) Extremities: Other (3+ pitting edema) Results/Procedures Lab Laboratory Tests 03/23/21 18:26: Glucometer 132H 03/23/21 23:59: Glucometer 124H 03/24/21 03:20: White Blood Count 14.6H, Red Blood Count 4.95, Hemoglobin 15.0, Hematocrit 49, Mean Corpuscular Volume 98, Mean Corpuscular Hemoglobin 30, Mean Corpuscular Hemoglobin Concent 31L, Red Cell Distribution Width 13.4, Platelet Count 175, Mean Platelet Volume 11.4, Immature Granulocyte % (Auto) 1, Neutrophils (%) (Auto) 80H, Lymphocytes (%) (Auto) 11L, Monocytes (%) (Auto) 7, Eosinophils (%) (Auto) 2, Basophils (%) (Auto) 1, Neutrophils # (Auto) 11.7H, Lymphocytes # (Auto) 1.6, Monocytes # (Auto) 1.0, Eosinophils # (Auto) 0.2, Basophils # (Auto) 0.1, Immature Granulocyte # (Auto) 0.1, Neutrophils % (Manual) 85, Lymphocytes % (Manual) 5, Monocytes % (Manual) 2, Eosinophils % (Manual) 1, Basophils % (Manual) 0, Band Neutrophils 2, Reactive Lymphocytes 5, Blood Morphology Comment NORMAL, Blood Gas Puncture Site L RAD, Blood Gas Patient Temperature 38.6, Arterial Blood pH 7.34*L, Arterial Blood Partial Pressure CO2 46H, Arterial Blood Partial Pressure O2 68L, Arterial Blood HCO3 23, Arterial Blood Total CO2 24.5, Arterial Blood Oxygen Saturation 90L, Arterial Blood Base Excess -1.5, Ignacio Test YES-POS, Blood Gas Ventilator Setting YES, Blood Gas Inspired Oxygen 40%, Sodium Level 143, Potassium Level 3.7, Chloride Level 112H, Carbon Dioxide Level 19L, Anion Gap 12, Blood Urea Nitrogen 29H, Creatinine 0.69, Estimat Glomerular Filtration Rate 114, BUN/Creatinine Ratio 42, Glucose Level 156H, Calcium Level 8.0L, Corrected Calcium 8.9, Phosphorus Level 3.3, Magnesium Level 2.1, Total Bilirubin 0.5, Aspartate Amino Transf (AST/SGOT) 60H, Alanine Aminotransferase (ALT/SGPT) 219H, Alkaline Phosphatase 68, Total Protein 6.2L, Albumin 2.9L 03/24/21 12:42: Glucometer 146H Microbiology 03/22/21 Catheter Tip Culture - Preliminary, Resulted No growth 03/10/21 Gram Stain - Final, Complete 03/10/21 Sputum Culture - Final, Complete Usual upper respiratory erick Staphylococcus aureus 03/09/21 Urine Culture - Final, Complete NO GROWTH Assessment/Plan Assessment/Plan (1) Acute on chronic respiratory failure with hypoxia and hypercapnia Status: Acute Assessment & Plan: Ventilator dependent, appreciate [facility] ICU recommendations. Suspect secondary to COVID19 infection with superimposed CHF and pulmonary edema. 03/22: Continues to be ventilator dependent, eICU managing 03/23: Vent dependent, Discussed trach/PEG with Dr Francois, Yeast in blood culture, anti fungals added 03/24: Vent dependent, Family concerning Comfort care (2) Facial cellulitis Status: Acute Assessment & Plan: Question of facial cellulitis vs angioedema prior to admission. Completed 5 days of Zosyn, remains on vancomycin. Will resume Zosyn due to growth of aerococcus in blood x 2 and stop vancomycin given negative MRSA swab. 03/19/21- continue zosyn, held lisinopril due to facial swelling/possible angioedema, is on dexamethasone. 03/22: Continues to have fevers, will pull central line and plan to place PICC line, will culture tip (3) COVID-19 Status: Acute Assessment & Plan: Unknown onset of symptoms. On dexamethasone day 10. (4) Morbid obesity Status: Chronic (5) Primary hypertension Status: Chronic Assessment & Plan: Initially hypotensive, blood pressure trending back up, appreciate Cardiology management. (6) Non-ST elevation myocardial infarction (NSTEMI), initial care episode Status: Acute Assessment & Plan: Elevated troponin on admit, unable to cath due to weight limit of table, on therapeutic enoxaparin x 5 days, changed back to prophylactic dose per Cardiology, started on ticagrelor. 03/22: Troponin trending down, Maximize conservative management due to weight limits (7) Acute HFrEF (heart failure with reduced ejection fraction) Status: Acute Assessment & Plan: Appreciate Cardiology recommendations, receiving IV lasix, echo with somewhat reduced EF but difficult to evaluate well due to body habitus. (8) DVT prophylaxis Status: Acute Assessment & Plan: Enoxaparin (9) Discharge planning issues Status: Acute Assessment & Plan: 03/15- Called Guerda to update on current status and discuss plans, no answer, voicemail not set up. 03/16- Called Guerda (sister) and updated on status, she denied further que stions at this time. 03/17- spoke with Guerda around 0830, discussed no significant changes from yesterday, awaiting [facility] ICU physician plan later this morning. 03/18- Called to update at 1438, no answer. 03/19- Spoke to Guerda and updated 03/23: Called and updated Guer[facility], no significant change, they are going to discuss Trach/PEG 03/24: Called and no answer 1330 BOBBY DIETZ MD Mar 24, 2021 16:27
[2021-03-24 18:59] VITALS: BP 122/67
[2021-03-24] MEDS: ROSUVASTATIN 20 MG (CRESTOR) TABLET PO SCH (20:04)
[2021-03-24 22:07] VITALS: BP 122/67
[2021-03-25] MEDS: DexMEDEtomidine 250 ML DRIP 250 ML IV SCH ×5 (00:17→15:57)
[2021-03-25] MEDS: inSUlin ASPART (NovoLOG) 1 UNIT/0.01 ML (CHARGE PER UNIT) SC SCH ×3 (00:18→14:04)
[2021-03-25] MEDS: VANCOMYCIN 1250 MG/NS 250 ML IVPB IV SCH ×6 (01:44→17:54)
[2021-03-25] MEDS: PIPERACILLIN SODIUM/TAZOBACTAM 4.5 GM in NS (IVPB) 100 ML IV SCH ×3 (01:44→17:54)
[2021-03-25] MEDS: PROPOFOL DRIP (ICU) 100 ML IV SCH ×2 (01:45→14:04)
[2021-03-25] MEDS: NOREPINEPHRINE 8 MG/250 ML 250 ML IV SCH ×3 (01:45→14:03)
[2021-03-25 03:01] VITALS: BP 168/92
[2021-03-25] MEDS: RT-ALBUTEROL HFA 8.5 GM INHALER IH SCH ×4 (03:01→15:29)
[2021-03-25 05:08] LABS: BASOPHILS # (AUTO) 0.1 10^3/uL (0.0-0.1); BASOPHILS % (AUTO) 1 % (0-10); EOSINOPHILS # (AUTO) 0.3 10^3/uL (0.0-0.3); EOSINOPHILS % (AUTO) 3 % (0-10); HEMATOCRIT 41 % (40-54); HEMOGLOBIN 13.1 g/dL (13.3-17.7); LYMPHOCYTES # (AUTO) 1.1 10^3/uL (1.0-4.0); LYMPHOCYTES % (AUTO) 10 % (12-44); MEAN CORPUSCULAR HEMOGLOBIN 31 pg (25-34); MEAN CORPUSCULAR HGB CONC 32 g/dL (32-36); MEAN CORPUSCULAR VOLUME 98 fL (80-99); MEAN PLATELET VOLUME 12.3 fL (9.0-12.2); MONOCYTES # (AUTO) 0.6 10^3/uL (0.0-1.0); MONOCYTES % (AUTO) 5 % (0-12); NEUTROPHILS % (AUTO) 81 % (42-75); PLATELET COUNT 135 10^3/uL (130-400); WHITE BLOOD COUNT 11.1 10^3/uL (4.3-11.0)
[2021-03-25] MEDS: ISOSORBIDE DINITRATE 10 MG (ISORDIL) TABLET PO SCH ×3 (05:26→17:54)
[2021-03-25] MEDS: hydrALAZINE (APRESOLINE) 25 MG TAB PO SCH ×2 (05:26→14:03)
[2021-03-25 05:30] LABS: ALBUMIN 2.4 GM/DL (3.2-4.5); POTASSIUM 3.4 MMOL/L (3.6-5.0)
[2021-03-25 05:33] LABS: TOTAL PROTEIN 5.6 GM/DL (6.4-8.2)
[2021-03-25 05:35] LABS: BILIRUBIN,TOTAL 0.5 MG/DL (0.1-1.0)
[2021-03-25 05:36] LABS: PHOSPHORUS 2.9 MG/DL (2.3-4.7)
[2021-03-25 05:37] LABS: CREATININE SERUM 0.52 MG/DL (0.60-1.30)
[2021-03-25 05:39] LABS: MAGNESIUM 1.6 MG/DL (1.6-2.4)
[2021-03-25] MEDS: MAGNESIUM 1 GM/100 ML IVPB 100 ML IV SCH ×2 (05:51→06:21)
[2021-03-25] MEDS: POTASSIUM CL 10MEQ/50ML IVPB 50 ML IV SCH ×3 (05:51→06:21)
[2021-03-25] MEDS: KCL 20 MEQ TAB (K-DUR) PO SCH (05:51)
[2021-03-25] MEDS: CATHETER FLUSH 10 ML SYR IV SCH ×2 (06:21→14:03)
[2021-03-25 06:40] LABS: BAND NEUTROPHILS 9 %; EOSINOPHILS % (MANUAL) 2 %; LYMPHOCYTES % (MANUAL) 16 %; MONOCYTES % (MANUAL) 2 %; NEUTROPHILS % (MANUAL) 69 %; REACTIVE LYMPHOCYTES 2 %
[2021-03-25 06:41] LABS: ANISOCYTOSIS SLIGHT
--- NOTE | 2021-03-25 06:54 | Progress Note - Surgery ---
MONIQUE ARNETT 03/25/21 0654: Subjective Date Seen by a Provider: Mar 25, 2021 Time Seen by a Provider: 06:50 Subjective/Events-last exam Unable to obtain due to pt intubation and sedation Review of Systems Unable to obtain ROS, intubated and sedated Focused Exam Time of Focused Exam: 21:25 Respiratory: Other (on ventilator) Cardiovascular: Bradycardia Objective Exam Vital Signs Date Time Temp Pulse Resp B/P (MAP) Pulse Ox O2 Delivery O2 Flow Rate FiO2 03/25/21 06:21 58 168/92 03/25/21 06:20 58 168/92 03/25/21 06:00 37.1 62 21 127/79 96 Mechanical Ventilator 40.00 03/25/21 05:00 37.2 58 22 163/94 98 Mechanical Ventilator 40.00 03/25/21 04:00 37.2 60 25 167/86 98 Mechanical Ventilator 40.00 03/25/21 04:00 96 Mechanical Ventilator 40 03/25/21 04:00 40 03/25/21 03:01 58 20 98 40 03/25/21 03:00 37.2 60 24 173/94 97 Mechanical Ventilator 40.00 03/25/21 02:00 37.2 62 21 156/86 97 Mechanical Ventilator 40.00 03/25/21 01:45 58 122/67 03/25/21 01:45 58 122/67 03/25/21 01:00 56 03/25/21 01:00 37.2 56 18 156/88 97 Mechanical Ventilator 40.00 03/25/21 00:18 58 122/67 03/25/21 00:17 58 122/67 03/25/21 00:00 40 03/25/21 00:00 37.1 58 168/92 97 Mechanical Ventilator 40.00 03/24/21 23:59 96 Mechanical Ventilator 40 03/24/21 23:00 37.1 52 159/89 95 Mechanical Ventilator 40.00 03/24/21 22:07 58 20 97 40 03/24/21 22:00 37.1 53 137/73 99 Mechanical Ventilator 40.00 03/24/21 21:00 37.0 52 162/100 97 Mechanical Ventilator 40.00 03/24/21 20:05 55 20 122/67 03/24/21 20:00 40 03/24/21 20:00 37.1 54 163/95 97 Mechanical Ventilator 40.00 03/24/21 20:00 96 Mechanical Ventilator 40 03/24/21 19:00 55 03/24/21 19:00 37.3 55 21 127/68 99 Mechanical Ventilator 40.00 03/24/21 18:59 58 20 97 40 03/24/21 18:21 53 157/90 03/24/21 18:21 53 157/90 03/24/21 18:00 37.4 53 19 157/90 98 Mechanical Ventilator 40.00 03/24/21 17:00 37.4 55 19 151/87 98 Mechanical Ventilator 40.00 03/24/21 16:15 96 Mechanical Ventilator 40 03/24/21 16:06 40 03/24/21 16:04 55 19 144/80 03/24/21 16:03 55 144/80 03/24/21 16:02 55 144/80 03/24/21 16:00 37.4 54 21 144/80 97 Mechanical Ventilator 40.00 03/24/21 15:00 37.3 58 19 128/74 96 Mechanical Ventilator 40.00 03/24/21 14:45 58 20 97 40 03/24/21 14:00 37.2 55 21 112/62 100 Mechanical Ventilator 40.00 03/24/21 13:48 53 137/79 03/24/21 13:00 37.3 53 20 137/79 99 Mechanical Ventilator 40.00 03/24/21 12:35 96 Mechanical Ventilator 40 03/24/21 12:19 56 03/24/21 12:08 55 119/61 03/24/21 12:08 55 119/61 03/24/21 12:07 55 119/61 03/24/21 12:00 37.5 56 22 119/61 99 Mechanical Ventilator 40.00 03/24/21 12:00 40 03/24/21 11:00 37.6 56 22 141/82 97 Mechanical Ventilator 40.00 03/24/21 10:15 51 24 100 40 03/24/21 10:00 37.6 56 127/71 99 Mechanical Ventilator 40.00 03/24/21 09:00 37.6 55 132/75 98 Mechanical Ventilator 40.00 03/24/21 08:35 98 Mechanical Ventilator 40 03/24/21 08:00 40 03/24/21 08:00 37.7 54 22 136/77 99 Mechanical Ventilator 40.00 03/24/21 07:00 56 03/24/21 07:00 37.9 56 19 148/79 99 Mechanical Ventilator 40.00 I & O 03/25/21 07:00 Intake Total 1940 ml Output Total 2200 ml Balance -260 ml Capillary Refill : NONE General Appearance: No Apparent Distress, Obese, Other (Intubated and sedated) Respiratory: Other (On ventilator) Cardiovascular: Bradycardia Extremity: Swelling Neurologic/Psychiatric: No Alert, No Oriented x3; Other (Sedated) Skin: Other (angioedema of lips; facial cellulitis) Results Lab Laboratory Tests 03/24/21 12:42: Glucometer 146H 03/24/21 18:19: Glucometer 121H 03/25/21 00:14: Glucometer 121H 03/25/21 04:55: White Blood Count 11.1H, Red Blood Count 4.21L, Hemoglobin 13.1L, Hematocrit 41, Mean Corpuscular Volume 98, Mean Corpuscular Hemoglobin 31, Mean Corpuscular Hemoglobin Concent 32, Red Cell Distribution Width 13.2, Platelet Count 135, Mean Platelet Volume 12.3H, Immature Granulocyte % (Auto) 1, Neutrophils (%) (Auto) 81H, Lymphocytes (%) (Auto) 10L, Monocytes (%) (Auto) 5, Eosinophils (%) (Auto) 3, Basophils (%) (Auto) 1, Neutrophils # (Auto) 9.0H, Lymphocytes # (Auto) 1.1, Monocytes # (Auto) 0.6, Eosinophils # (Auto) 0.3, Basophils # (Auto) 0.1, Immature Granulocyte # (Auto) 0.1, Neutrophils % (Manual) 69, Lymphocytes % (Manual) 16, Monocytes % (Manual) 2, Eosinophils % (Manual) 2, Band Neutrophils 9, Reactive Lymphocytes 2, Smudge Cells SLIGHT, Anisocytosis SLIGHT, Sodium Level 141, Potassium Level 3.4L, Chloride Level 114H, Carbon Dioxide Level 18L, Anion Gap 9, Blood Urea Nitrogen 17, Creatinine 0.52L, Estimat Glomerular Filtration Rate 124, BUN/Creatinine Ratio 33, Glucose Level 121H, Calcium Level 7.0L, Corrected Calcium 8.3L, Phosphorus Level 2.9, Magnesium Level 1.6, Total Bilirubin 0.5, Aspartate Amino Transf (AST/SGOT) 26, Alanine Aminotransferase (ALT/SGPT) 118H, Alkaline Phosphatase 46, Total Protein 5.6L, Albumin 2.4L Microbiology 03/23/21 Blood Culture - Preliminary, Resulted No growth 03/10/21 Gram Stain - Final, Complete 03/10/21 Sputum Culture - Final, Complete Usual upper respiratory erick Staphylococcus aureus 03/09/21 Urine Culture - Final, Complete NO GROWTH Assessment/Plan Assessment/Plan Assessment/Plan Acute respiratory failure Covid positive Non-ST elevated [place] History of tracheostomy Morbid obesity Fever Family discussed possible bronchoscopy/tracheostomy with Dr. Francois Family considering comfort care vs tracheostomy, awaiting their decision CHECO FRANCOIS DO 03/25/212116: Subjective Subjective/Events-last exam Patient intubated and sedated Objective Exam General Appearance: No Apparent Distress, Obese, Other (Intubated and sedated) HEENT: Normal ENT Inspection Neck: Supple Respiratory: Other (On ventilator equal chest rise) Cardiovascular: No JVD, Bradycardia Gastrointestinal: soft Extremity: Swelling Neurologic/Psychiatric: No Alert, No Oriented x3; Other (Sedated) Skin: Other (angioedema of lips; facial cellulitis) Assessment/Plan Assessment/Plan Assessment/Plan Acute respiratory failure Covid positive Non-ST elevated VA History of tracheostomy Morbid obesity Fever Family was discussed possible bronchoscopy/tracheostomy with Dr. Francois. Patient family did discuss with nursing planning on Comfort measures. This is what they were leaning towards when I was discussing procedures, but they were waiting for further family input. Will sign off, call if needed. Supervisory-Addendum Brief Verification & Attestation Participated in pt care: history, MDM, physical Personally performed: exam, history, MDM, supervision of care Care discussed with: Medical Student Procedures: n/a Results interpretation: Verified all documentation Verification and Attestation of Medical Student E/M Service A medical student performed and documented this service in my presence. I reviewed and verified all information documented by the medical student and made modifications to such information, when appropriate. I personally performed the physical exam and medical decision making. Checo Francois, Mar 25, 2021,21:17 MONIQUE ARNETT Mar 25, 2021 06:54 CHECO FRANCOIS DO Mar 25, 2021 21:17
[2021-03-25 07:19] VITALS: BP 130/84
[2021-03-25] MEDS: VASOPRESSIN INJECTION 20 UNIT in NS (IVPB) 100 ML IV SCH (07:21)
--- NOTE | 2021-03-25 08:18 | Tele-ICU Progress Note ---
Subjective Date Seen by a Provider: Mar 25, 2021 Time Seen by a Provider: 08:18 Subjective/Events-last exam several times evaluated by video visit and d/w rn. he is not ready for weaning. not good candidate for trach as he has very obese neck with chin touching his sternum. basically no place to put a trach.. apparently pts sister agreed for comfort care. awaiting to implement. Review of Systems ROS PER RN Sepsis Event Evaluation Height, Weight, BMI Height: 6'3.00" Weight: 401lbs. 0.0oz. 181.852398jq; 60.27 BMI Method:Actual Focused Exam Time of Focused Exam: 21:25 Exam Exam Patient acknowledged, consented, and participated in this virtual visit which was conducted using real time audio/video Vital Signs Date Time Temp Pulse Resp B/P (MAP) Pulse Ox O2 Delivery O2 Flow Rate FiO2 03/25/21 07:57 37.1 03/25/21 07:19 61 22 99 40 03/25/21 06:21 58 168/92 03/25/21 06:20 58 168/92 03/25/21 06:00 37.1 62 21 127/79 96 Mechanical Ventilator 40.00 03/25/21 05:00 37.2 58 22 163/94 98 Mechanical Ventilator 40.00 03/25/21 04:00 37.2 60 25 167/86 98 Mechanical Ventilator 40.00 03/25/21 04:00 96 Mechanical Ventilator 40 03/25/21 04:00 40 03/25/21 03:01 58 20 98 40 03/25/21 03:00 37.2 60 24 173/94 97 Mechanical Ventilator 40.00 03/25/21 02:00 37.2 62 21 156/86 97 Mechanical Ventilator 40.00 03/25/21 01:45 58 122/67 03/25/21 01:45 58 122/67 03/25/21 01:00 56 03/25/21 01:00 37.2 56 18 156/88 97 Mechanical Ventilator 40.00 03/25/21 00:18 58 122/67 03/25/21 00:17 58 122/67 03/25/21 00:00 40 03/25/21 00:00 37.1 58 168/92 97 Mechanical Ventilator 40.00 03/24/21 23:59 96 Mechanical Ventilator 40 03/24/21 23:00 37.1 52 159/89 95 Mechanical Ventilator 40.00 03/24/21 22:07 58 20 97 40 03/24/21 22:00 37.1 53 137/73 99 Mechanical Ventilator 40.00 03/24/21 21:00 37.0 52 162/100 97 Mechanical Ventilator 40.00 03/24/21 20:05 55 20 122/67 03/24/21 20:00 40 03/24/21 20:00 37.1 54 163/95 97 Mechanical Ventilator 40.00 03/24/21 20:00 96 Mechanical Ventilator 40 03/24/21 19:00 55 03/24/21 19:00 37.3 55 21 127/68 99 Mechanical Ventilator 40.00 03/24/21 18:59 58 20 97 40 03/24/21 18:21 53 157/90 03/24/21 18:21 53 157/90 03/24/21 18:00 37.4 53 19 157/90 98 Mechanical Ventilator 40.00 03/24/21 17:00 37.4 55 19 151/87 98 Mechanical Ventilator 40.00 03/24/21 16:15 96 Mechanical Ventilator 40 03/24/21 16:06 40 03/24/21 16:04 55 19 144/80 03/24/21 16:03 55 144/80 03/24/21 16:02 55 144/80 03/24/21 16:00 37.4 54 21 144/80 97 Mechanical Ventilator 40.00 03/24/21 15:00 37.3 58 19 128/74 96 Mechanical Ventilator 40.00 03/24/21 14:45 58 20 97 40 03/24/21 14:00 37.2 55 21 112/62 100 Mechanical Ventilator 40.00 03/24/21 13:48 53 137/79 03/24/21 13:00 37.3 53 20 137/79 99 Mechanical Ventilator 40.00 03/24/21 12:35 96 Mechanical Ventilator 40 03/24/21 12:19 56 03/24/21 12:08 55 119/61 03/24/21 12:08 55 119/61 03/24/21 12:07 55 119/61 03/24/21 12:00 37.5 56 22 119/61 99 Mechanical Ventilator 40.00 03/24/21 12:00 40 03/24/21 11:00 37.6 56 22 141/82 97 Mechanical Ventilator 40.00 03/24/21 10:15 51 24 100 40 03/24/21 10:00 37.6 56 127/71 99 Mechanical Ventilator 40.00 03/24/21 09:00 37.6 55 132/75 98 Mechanical Ventilator 40.00 03/24/21 08:35 98 Mechanical Ventilator 40 I & O 03/25/21 07:00 Intake Total 1940 ml Output Total 2200 ml Balance -260 ml Height & Weight Height: 6'3.00" Weight: 401lbs. 0.0oz. 181.339142zf; 60.27 BMI Method:Actual General Appearance: No Apparent Distress, Obese, Other (Intubated and sedated) Respiratory: Other (On ventilator) Cardiovascular: Bradycardia Extremity: Swelling Neurologic/Psychiatric: No Alert, No Oriented x3; Other (Sedated) Skin: Other (angioedema of lips; facial cellulitis) Other comments PE PER RN Results Lab Laboratory Tests 03/24/21 03:20 03/25/21 04:55 Assessment/Plan Assessment/Plan . Acute on chronic hyper And hypoxic respiratory failure secondary to Covid -19 VIRAL pneumonia with super morbid obesity. Requiring mechanical ventilation. 2. Facial cellulitis acute 3. Covid19 viral multifocal pneumonia 4. Suspected superadded bacterial pneumonia 5. Non-ST segment elevation myocardial infarction 6. History of hypertension 7. History of chronic systolic congestive heart failure. 8. High risk for DVT and PE. Recommendations 1. Continue current mechanical ventilatory support and sedation. He is not a candidate for SBT today.. not a surgical candidate for Trach. 2. IV antibiotics per primary care team 3. Tracheostomy is difficult and high risk 4. Agree with comfort care as requested by his sister. Critical Care: Ventilator Management JASON CHASE MD Mar 25, 2021 08:18
--- NOTE | 2021-03-25 09:27 | Diagnostic Imaging Report ---
Indication: Shortness of breath Portable chest 9:01 AM There is cardiomegaly. Pulmonary vascularity is normal. ET tube projects over the trachea. Right extremity PICC line tip projects over the SVC. Lungs are clear. There are no effusions or pneumothoraces. IMPRESSION: Cardiomegaly without evidence of pulmonary venous hypertension Dictated by: Dictated on workstation # [id number]
--- NOTE | 2021-03-25 09:32 | Diagnostic Imaging Report ---
INDICATION: Low oxygen saturation. TIME OF EXAM: 8:58 AM 2 views of the soft tissues of the neck were obtained. ET tube appears with the tip at the level of the clavicular heads. There is an NG tube in place as well. Tubes obscure the prevertebral tissues. There appears to be postop changes from ACDF in the lower cervical spine. IMPRESSION: Lines and catheters, as described. There are postoperative changes cervical spine. No other abnormality is seen. Dictated by: Dictated on workstation # [id number]
[2021-03-25 10:10] VITALS: BP 122/62
[2021-03-25] MEDS: FUROSEMIDE 40 MG/4 ML INJ (LASIX) IVP SCH (10:17)
[2021-03-25] MEDS: FAMOTIDINE 20MG/2ML IV (PEPCID) IVP SCH (10:17)
[2021-03-25] MEDS: PANTOPRAZOLE 40 MG (PROTONIX) VIAL IV SCH (10:17)
[2021-03-25] MEDS: TICAGRELOR 90 MG TABLET (BRILINTA) PO SCH (10:17)
[2021-03-25] MEDS: MICONAZOLE 2% POWDER (DESENEX AF) 90 GM TOP SCH ×3 (10:18→17:54)
[2021-03-25] MEDS: LACRI-LUBE OPTHALMIC OINT 3.5 GM TUBE OU PRN (10:18)
[2021-03-25] MEDS: ENOXAPARIN 60 MG/0.6 ML (LOVENOX) SYR SQ SCH (10:18)
[2021-03-25] MEDS: ASPIRIN 81 MG CHEW (CHILDREN'S ASA) PO SCH (10:18)
[2021-03-25] MEDS: ANIDULAFUNGIN INJECTION 100 MG in NS (IVPB) 100 ML IV SCH (10:19)
[2021-03-25] MEDS: hydrALAZINE (APESOLINE) 20 MG/ML VIAL IV PRN (10:51)
[2021-03-25 14:04] VITALS: BP 139/76
--- NOTE | 2021-03-25 17:28 | Cardiology Progress Note ---
Progress Note-Cardiology Events since last exam Date Seen by Provider: Mar 25, 2021 Time Seen by Provider: 17:27 Events since last exam I was told by the nurse that the patient's family has decided to go with comfort care. As such, cardiology will sign off. Please call if you have other questions or concerns. Vitals Last set of Vitals Signs Vital Signs 03/25/21 03/25/21 15:29 16:00 Temp 36.8 Pulse 62 Resp 20 B/P (MAP) 142/80 Pulse Ox 100 O2 Delivery Mechanical Ventilator O2 Flow Rate 40.00 FiO2 40 Labs Labs Laboratory Tests 03/25/21 04:55 Exam Vital Signs Vital Signs Date Time Temp Pulse Resp B/P (MAP) Pulse Ox O2 Delivery O2 Flow Rate FiO2 03/25/21 16:00 36.8 62 20 142/80 100 Mechanical Ventilator 40.00 03/25/21 15:29 40 Labs Laboratory Tests Test 03/24/21 18:19 03/25/21 00:14 03/25/21 04:55 03/25/21 12:10 Range/Units Glucometer 121 H 121 H 106 70-110 MG/DL White Blood Count 11.1 H 4.3-11.0 10^3/uL Red Blood Count 4.21 L 4.30-5.52 10^6/uL Hemoglobin 13.1 L 13.3-17.7 g/dL Hematocrit 41 40-54 % Mean Corpuscular Volume 98 80-99 fL Mean Corpuscular Hemoglobin 31 25-34 pg Mean Corpuscular Hemoglobin Concent 32 32-36 g/dL Red Cell Distribution Width 13.2 10.0-14.5 % Platelet Count 135 130-400 10^3/uL Mean Platelet Volume 12.3 H 9.0-12.2 fL Immature Granulocyte % (Auto) 1 % Neutrophils (%) (Auto) 81 H 42-75 % Lymphocytes (%) (Auto) 10 L 12-44 % Monocytes (%) (Auto) 5 0-12 % Eosinophils (%) (Auto) 3 0-10 % Basophils (%) (Auto) 1 0-10 % Neutrophils # (Auto) 9.0 H 1.8-7.8 10^3/uL Lymphocytes # (Auto) 1.1 1.0-4.0 10^3/uL Monocytes # (Auto) 0.6 0.0-1.0 10^3/uL Eosinophils # (Auto) 0.3 0.0-0.3 10^3/uL Basophils # (Auto) 0.1 0.0-0.1 10^3/uL Immature Granulocyte # (Auto) 0.1 0.0-0.1 10^3/uL Neutrophils % (Manual) 69 % Lymphocytes % (Manual) 16 % Monocytes % (Manual) 2 % Eosinophils % (Manual) 2 % Band Neutrophils 9 % Reactive Lymphocytes 2 % Smudge Cells SLIGHT Anisocytosis SLIGHT Sodium Level 141 135-145 MMOL/L Potassium Level 3.4 L 3.6-5.0 MMOL/L Chloride Level 114 H 98-107 MMOL/L Carbon Dioxide Level 18 L 21-32 MMOL/L Anion Gap 9 5-14 MMOL/L Blood Urea Nitrogen 17 7-18 MG/DL Creatinine 0.52 L 0.60-1.30 MG/DL Estimat Glomerular Filtration Rate 124 BUN/Creatinine Ratio 33 Glucose Level 121 H 70-105 MG/DL Calcium Level 7.0 L 8.5-10.1 MG/DL Corrected Calcium 8.3 L 8.5-10.1 MG/DL Phosphorus Level 2.9 2.3-4.7 MG/DL Magnesium Level 1.6 1.6-2.4 MG/DL Total Bilirubin 0.5 0.1-1.0 MG/DL Aspartate Amino Transf (AST/SGOT) 26 5-34 U/L Alanine Aminotransferase (ALT/SGPT) 118 H 0-55 U/L Alkaline Phosphatase 46 40-136 U/L Total Protein 5.6 L 6.4-8.2 GM/DL Albumin 2.4 L 3.2-4.5 GM/DL ROB CANTOR JR, MD Mar 25, 2021 17:28
[2021-03-25] MEDS ORDERED: ACETAMINOPHEN 650 MG SUPP (TYLENOL) PR PRN (17:30)
[2021-03-25] MEDS ORDERED: GLYCOPYRROLATE 0.2 MG/ML (ROBINUL) 2 ML VIAL IV PRN (17:30)
[2021-03-25] MEDS ORDERED: ONDANSETRON 4 MG/2 ML (SDV) Z0FRAN IVP PRN (17:30)
[2021-03-25] MEDS ORDERED: PROMETHAZINE INJ 25 MG/ML (PHENERGAN) AMP IVP PRN (17:30)
[2021-03-25] MEDS ORDERED: LORazepam INJ 2 MG/ML (ATIVAN) VIAL IVP PRN (17:30)
[2021-03-25] MEDS ORDERED: SALIVA STIMULANT MOUTH SPRAY (BIOTENE) 1.5 OZ MM PRN (17:30)
[2021-03-25] MEDS ORDERED: BISACODYL 10 MG SUPP (DULCOLAX) PR PRN (17:30)
[2021-03-25] MEDS ORDERED: RT-ALBUTEROL/IPRATROPIUM 3 ML (DUONEB) VIAL INH PRN (17:30)
[2021-03-25] MEDS ORDERED: morphine INJ 4 MG/ML 1 ML (VIAL/SYRINGE) IV PRN (17:30)
[2021-03-25] MEDS ORDERED: ARTIFICAL TEARS 0.4 ML UNIT DOSE (REFRESH PLUS) OU PRN (17:30)
--- NOTE | 2021-03-25 21:46 | Progress Note ---
Subjective Subjective/Events-last exam Patient intubated and sedated. Family would like to proceed with comfort care. Review of Systems Unable to obtain, Intubated and Sedated Focused Exam Time of Focused Exam: 21:25 Objective Exam Last Set of Vital Signs Vital Signs Date Time Temp Pulse Resp B/P (MAP) Pulse Ox O2 Delivery O2 Flow Rate FiO2 03/25/21 20:00 90 Room Air 03/25/21 19:00 70 03/25/21 16:00 40 03/25/21 16:00 36.8 20 142/80 40.00 Capillary Refill : NONE I&O Intake and Output 03/25/21 00:00 Intake Total 1690 ml Output Total 1975 ml Balance -285 ml Tube Feeding 1440 ml Other 250 ml Output Urine Total 1975 ml General: Other (intubated and sedated) Lungs: Other (diminished breath sounds with crackles) Heart: Regular Rate Abdomen: Soft Extremities: Other (2+pitting edema with mottling) Results/Procedures Lab Laboratory Tests 03/25/21 00:14: Glucometer 121H 03/25/21 04:55: White Blood Count 11.1H, Red Blood Count 4.21L, Hemoglobin 13.1L, Hematocrit 41, Mean Corpuscular Volume 98, Mean Corpuscular Hemoglobin 31, Mean Corpuscular Hemoglobin Concent 32, Red Cell Distribution Width 13.2, Platelet Count 135, Mean Platelet Volume 12.3H, Immature Granulocyte % (Auto) 1, Neutrophils (%) (Auto) 81H, Lymphocytes (%) (Auto) 10L, Monocytes (%) (Auto) 5, Eosinophils (%) (Auto) 3, Basophils (%) (Auto) 1, Neutrophils # (Auto) 9.0H, Lymphocytes # (Auto) 1.1, Monocytes # (Auto) 0.6, Eosinophils # (Auto) 0.3, Basophils # (Auto) 0.1, Immature Granulocyte # (Auto) 0.1, Neutrophils % (Manual) 69, Lymphocytes % (Manual) 16, Monocytes % (Manual) 2, Eosinophils % (Manual) 2, Band Neutrophils 9, Reactive Lymphocytes 2, Smudge Cells SLIGHT, Anisocytosis SLIGHT, Sodium Level 141, Potassium Level 3.4L, Chloride Level 114H, Carbon Dioxide Level 18L, Anion Gap 9, Blood Urea Nitrogen 17, Creatinine 0.52L, Estimat Glomerular Filtration Rate 124, BUN/Creatinine Ratio 33, Glucose Level 121H, Calcium Level 7.0L, Corrected Calcium 8.3L, Phosphorus Level 2.9, Magnesium Level 1.6, Total Bilirubin 0.5, Aspartate Amino Transf (AST/SGOT) 26, Alanine Aminotransferase (ALT/SGPT) 118H, Alkaline Phosphatase 46, Total Protein 5.6L, Albumin 2.4L 03/25/21 12:10: Glucometer 106 Microbiology 03/23/21 Blood Culture - Preliminary, Resulted No growth 03/10/21 Gram Stain - Final, Complete 03/10/21 Sputum Culture - Final, Complete Usual upper respiratory erick Staphylococcus aureus 03/09/21 Urine Culture - Final, Complete NO GROWTH Assessment/Plan Assessment/Plan (1) Acute on chronic respiratory failure with hypoxia and hypercapnia Status: Acute Assessment & Plan: Ventilator dependent, appreciate [facility] ICU recommendations. Suspect secondary to COVID19 infection with superimposed CHF and pulmonary joselito ma. 03/22: Continues to be ventilator dependent, eICU managing 03/23: Vent dependent, Discussed trach/PEG with Dr Francois, Yeast in blood culture, anti fungals added 03/24: Vent dependent, Family concerning Comfort care 03/25: Vent dependent, plan to initiate comfort care later this afternoon (2) Facial cellulitis Status: Acute Assessment & Plan: Question of facial cellulitis vs angioedema prior to admission. Completed 5 days of Zosyn, remains on vancomycin. Will resume Zosyn due to growth of aerococcus in blood x 2 and stop vancomycin given negative MRSA swab. 03/19/21- continue zosyn, held lisinopril due to facial swelling/possible angioedema, is on dexamethasone. 03/22: Continues to have fevers, will pull central line and plan to place PICC line, will culture tip (3) COVID-19 Status: Acute Assessment & Plan: Unknown onset of symptoms. On dexamethasone day 10. (4) Morbid obesity Status: Chronic (5) Primary hypertension Status: Chronic Assessment & Plan: Initially hypotensive, blood pressure trending back up, appreciate Cardiology management. (6) Non-ST elevation myocardial infarction (NSTEMI), initial care episode Status: Acute Assessment & Plan: Elevated troponin on admit, unable to cath due to weight limit of table, on therapeutic enoxaparin x 5 days, changed back to prophylactic dose per Cardiology, started on ticagrelor. 03/22: Troponin trending down, Maximize conservative management due to weight limits (7) Acute HFrEF (heart failure with reduced ejection fraction) Status: Acute Assessment & Plan: Appreciate Cardiology recommendations, receiving IV lasix, echo with somewhat reduced EF but difficult to evaluate well due to body habitus. (8) DVT prophylaxis Status: Acute Assessment & Plan: Enoxaparin (9) Discharge planning issues Status: Acute Assessment & Plan: 03/15- Called Guerda to update on current status and discuss plans, no answer, voicemail not set up. 03/16- Called Guerda (sister) and updated on status, she denied further questions at this time. 03/17- spoke with Guerda around 0830, discussed no significant changes from yesterday, awaiting [facility] ICU physician plan later this morning. 03/18- Called to update at 1438, no answer. 03/19- Spoke to Guerda and updated 03/23: Called and updated Guer[facility], no significant change, they are going to discuss Trach/PEG 03/24: Called and no answer 1330 BOBBY DIETZ MD Mar 25, 2021 21:46
--- NOTE | 2021-04-02 00:02 | Physician Query Clarification ---
[facility]-Link Manifestation-Etiology Admission/Discharge Admission Date: Mar 09, 2021 at 21:20 Discharge Date: Mar 25, 2021 at 22:30 DARIUS Sandoval DO The medical record reflects the following clinical scenario: History/Risk Factors: 50 y/o male patient admitted with Acute on chronic respiratory failure secondary to COVID infection and obesity hypoventilation syndrome, sepsis was documented in medical record. Hand P, 03/09: Acute on chronic respiratory failure due to COVID-19 infection and Obesity hypoventilation syndrome, congestive heart failure, sepsis, facial cellulitis. Progress notes, 03/12: Acute on chronic respiratory failure due to COVID-19 infection and Obesity hypoventilation syndrome, congestive heart failure, sepsis, facial cellulitis. Progress notes, 03/17: Acute on chronic hypoxic respiratory failure, facial cellulitis, COVID-19, acute HFREF. Progress notes, 03/23: Acute on chronic hypoxic respiratory failure, facial cellulitis, COVID-19, acute HFREF. Clinical Findings: WBC-12.1 H, lactic acid-1.25, pulse-86.ABGs- 7.40/58/48, BC- Aeurococcus viridans, Staphylococcus hominis. Treatment:Zosyn, Vancomycin, mechanical ventilation, remdesiver. Question: Can you specify if the Sepsis is due to/associated with COVID-19 infection? Please document a response in the Progress Note or Discharge Summary. 1. Yes - Sepsis is due to/associated with COVID-19 infection. 2. No - Sepsis is not due to/associated with COVID-19 infection. 3. Other, with explanation of the clinical findings. 4. Clinically undetermined, no explanation for the clinical findings. PHYSICIAN RESPONSE Manifestation due to/assoic: Clinically undetermined (I dont believe I saw this patient) Explanation of clincal finding I dont believe I saw this patient Please remember a lack of response to the above will prompt a phone page by [facility]/Coding staff. In responding to this query, please exercise your independent professional judgment. The purpose of this communication is to more accurately reflect the complexity of your patients condition. The fact that a question is asked does not imply that any particular answer is desired or expected. Thank you for your timely response to this clarification. Requestors name: [ ] Phone # [ ] THIS PHYSICIAN QUERY FORM IS A PERMANENT PART OF THE MEDICAL RECORD MONROE LARSON Apr 02, 2021 00:02 DARIUS LUNA DO Apr 02, 2021 05:55
--- NOTE | 2021-04-04 20:54 | Physician Query Clarification ---
[facility]-Link Manifestation-Etiology Admission/Discharge Admission Date: Mar 09, 2021 at 21:20 Discharge Date: Mar 25, 2021 at 22:30 BOBBY Barton MD The medical record reflects the following clinical scenario: History/Risk Factors: 50 y/o male patient admitted with Acute on chronic respiratory failure secondary to COVID infection and obesity hypoventilation syndrome, sepsis was documented in medical record. Hand P, 03/09: Acute on chronic respiratory failure due to COVID-19 infection and Obesity hypoventilation syndrome, congestive heart failure, sepsis, facial cellulitis. Progress notes, 03/12: Acute on chronic respiratory failure due to COVID-19 infection and Obesity hypoventilation syndrome, congestive heart failure, sepsis, facial cellulitis. Progress notes, 03/17: Acute on chronic hypoxic respiratory failure, facial cellulitis, COVID-19, acute HFREF. Progress notes, 03/23: Acute on chronic hypoxic respiratory failure, facial cellulitis, COVID-19, acute HFREF. Clinical Findings: WBC-12.1 H, lactic acid-1.25, pulse-86.ABGs- 7.40/58/48, BC- Aeurococcus viridans, Staphylococcus hominis. Treatment:Zosyn, Vancomycin, mechanical ventilation, remdesiver. Question: Can you specify if the Sepsis is due to/associated with COVID-19 infection? Please document a response in the Progress Note or Discharge Summary. 1. Yes - Sepsis is due to/associated with COVID-19 infection. 2. No - Sepsis is not due to/associated with COVID-19 infection. 3. Other, with explanation of the clinical findings. 4. Clinically undetermined, no explanation for the clinical findings. PHYSICIAN RESPONSE Manifestation due to/assoic: No Please remember a lack of response to the above will prompt a phone page by [facility]Coding staff. In responding to this query, please exercise your independent professional judgment. The purpose of this communication is to more accurately reflect the complexity of your patients condition. The fact that a question is asked does not imply that any particular answer is desired or expected. Thank you for your timely response to this clarification. Requestors name: [ ] Phone # [ ] THIS PHYSICIAN QUERY FORM IS A PERMANENT PART OF THE MEDICAL RECORD MONROE LARSON Apr 04, 2021 20:54 BOBBY DIETZ MD Apr 14, 2021 20:23
== END 2021-03-25 22:30 | disposition expired | DRG 207 ==
LOC: EDUNIT# 19:48 → ER 20:08 → ICU 21:20
PROVIDERS: ADMIT Internal Medicine; ATTEND Family Medicine
PROC: 5A1955Z Respiratory Ventilation, Greater than 96 Consecutive Hours (ICD-10-PCS; principal; 2021-03-09)
PROC: 0BH17EZ Insertion of Endotracheal Airway into Trachea, Via Natural or Artificial Opening (ICD-10-PCS; 2021-03-09)
PROC: 02HV33Z Insertion of Infusion Device into Superior Vena Cava, Percutaneous Approach (ICD-10-PCS; 2021-03-09)
PROC: XW033E5 Introduction of Remdesivir Anti-infective into Peripheral Vein, Percutaneous Approach, New Technology Group 5 (ICD-10-PCS; 2021-03-09)
PROC: 8E0ZXY6 Isolation (ICD-10-PCS; 2021-03-09)
DX: U07.1 COVID-19 (principal); A41.9 Sepsis, unspecified organism; J80 Acute respiratory distress syndrome; J12.82 Pneumonia due to coronavirus disease 2019; J15.9 Unspecified bacterial pneumonia; M31.10 Thrombotic microangiopathy, unspecified; I21.4 Non-ST elevation (NSTEMI) myocardial infarction; I50.23 Acute on chronic systolic (congestive) heart failure; L03.211 Cellulitis of face; Z68.44 Body mass index [BMI] 60.0-69.9, adult; J44.1 Chronic obstructive pulmonary disease with (acute) exacerbation; J44.0 Chronic obstructive pulmonary disease with (acute) lower respiratory infection; D68.59 Other primary thrombophilia; I42.9 Cardiomyopathy, unspecified; Z95.5 Presence of coronary angioplasty implant and graft; I25.2 Old myocardial infarction; Z51.5 Encounter for palliative care; I25.10 Atherosclerotic heart disease of native coronary artery without angina pectoris; E78.00 Pure hypercholesterolemia, unspecified; I11.0 Hypertensive heart disease with heart failure; G62.9 Polyneuropathy, unspecified; K21.9 Gastro-esophageal reflux disease without esophagitis; E66.01 Morbid (severe) obesity due to excess calories; M54.9 Dorsalgia, unspecified; M10.9 Gout, unspecified; F17.210 Nicotine dependence, cigarettes, uncomplicated; Z91.14 Patient's other noncompliance with medication regimen; R73.9 Hyperglycemia, unspecified; G89.4 Chronic pain syndrome; T78.3XXA Angioneurotic edema, initial encounter; D72.829 Elevated white blood cell count, unspecified; T38.0X5A Adverse effect of glucocorticoids and synthetic analogues, initial encounter
CPT/HCPCS: 31500; 36415; 36569; 70360; 71045; 76705; 76937; 80048; 80053; 80061; 80202; 80306; 80320; 81000; 82550; 82728; 82805; 82947; 83605; 83735; 83880; 84100; 84478; 84484; 85007; 85025; 85027; 85379; 85384; 85610; 85730; 86141; 87040; 87070; 87077; 87081; 87088; 87106; 87205; 87636; 93005; 93308; 94002; 94003; 94640; 94799; 96361; 96365; 96375; 99291; 99292